=== PATIENT | male | born 1965 | race Caucasian/White ===

== ENCOUNTER → 2018-02-05 07:06 | Outpatient (CLI) | payer BC, SELFPAY | PROVIDERS: Family Provider Family Medicine; PCP Family Medicine; Visit Provider Family Medicine | DX: R07.89 Other chest pain (principal) | CPT/HCPCS: 93017 ==

== ENCOUNTER → 2018-03-03 12:27 | Outpatient (CLI) | payer BC, SELFPAY ==
--- NOTE | 2018-03-03 12:29 | CA_ITS ---
PROCEDURE: 2-D M-mode and color Doppler study INDICATIONS FOR THE TEST: Chest painX COPDX Heart Murmur Tobacco Smoking Palpitations Fatigue Syncope Edema HypertensionXDiabetes Mellitus Rheumatic Fever SOBXDOE ObesityXHyperlipidemiaX Family History HD Additional History CAD,RECENT STENT,ABN GXT, PATIENT INFORMATION HEIGHT: 72 WEIGHT:229 GENDER: Male B/P:151/92 2-D/M-MODE INTERPRETATION: 2-D MEASUREMENTS OBSERVED VALUES IN CMS Right Ventricular Dimension (RVDd) 2.3 Interventricular Septum (Thickness)(IVsd) 1.0 Left Ventricular Internal Dimensions(LVIDd) 4.1 Left Ventricular Posterior Wall (Thickness)(LVPWd) 1.2 Aortic Root 3.7 Aortic Cusp Separation 2.0 Left Atrial Dimensions (LAD) 2.9 2D 1. Left atrium is mildly enlarged, left ventricle is normal size, mild qualitative concentric left ventricular hypertrophy, visually estimated ejection fraction 55% with no obvious regional wall motion abnormality. 2. The right atrium and right ventricle are normal size and contractility. 3. The aortic valve is minimally thickened and fibrosed. 4. The mitral and tricuspid valve are grossly normal. 5. The pulmonic valve is poorly visualized. 6. No significant pericardial effusion noted. DOPPLER INTERROGATION: Doppler interrogation of the aortic, mitral and tricuspid valvular presence of trace aortic, mild mitral and tricuspid regurgitation, tricuspid and jet velocity is insufficient for calculation of the right ventricular systolic pressure, grade 1 diastolic dysfunction seen without tissue Doppler evidence of raised left atrial pressure. CONCLUSION: 1. Mildly enlarged left atrium, normal left ventricular size, mild concentric left ventricular hypertrophy, visually estimated ejection fraction 55% with no obvious regional wall motion abnormality, grade 1 diastolic dysfunction seen without tissue Doppler evidence of raised left atrial pressure. 2. Trace aortic, mild mitral and tricuspid regurgitation 3. No significant pericardial effusion noted.
== END ==
PROVIDERS: Family Provider Family Medicine; PCP Family Medicine; Visit Provider Internal Medicine
DX: R55 Syncope and collapse (principal)
CPT/HCPCS: 93306

== ENCOUNTER → 2019-03-09 09:42 | Outpatient (CLI) | payer BC, SELFPAY ==
[2019-03-09 10:35] VITALS: PULSE 84
[2019-03-09 13:15] VITALS: PULSE 78
== END ==
LOC: RT 09:44
PROVIDERS: PCP Family Medicine; Visit Provider Nurse Practitioner
DX: J44.1 Chronic obstructive pulmonary disease with (acute) exacerbation (principal)
CPT/HCPCS: 94060; 94640; 94727; 94729

== ENCOUNTER → 2019-03-30 13:24 | Outpatient (CLI) | payer BC, SELFPAY ==
--- NOTE | 2019-03-30 13:36 | CT_ITS ---
PROCEDURE: CT CHEST WO CON CLINICAL INDICATION: COPD, SOB Shortness of air, cough, COPD COMPARISON: CXR CHEST(2 VIEWS-NOT PORTABLE) from 10/18/2014 TECHNIQUE: Axial images obtained with sagittal and coronal reformats. All CT scans at the facility use one or more dose reduction, viz: automated exposure control, ma/kV adjustment per patient size (including targeted exams where dose is matched to indication, i.e. head), or iterative reconstruction technique. FINDINGS: Coronary artery calcifications are present. There is normal heart size. No mediastinal or hilar mass. Fibrocalcific changes are present in the right apex with an area of pleural thickening with partial calcification. This area measures 4.2 cm transverse and 3 cm AP with some associated fibrosis. There are centrilobular emphysematous changes. 4 mm subpleural opacity is present in the right lower lobe laterally. Just medial to this is a 5 mm noncalcified nodule. Fibrotic changes are present in the left apex. Minimal fibrotic changes are present in the lingula. There is a 4 mm subpleural nodule in the left costophrenic sulcus. No central obstructing lesions are evident. No effusions or infiltrates. Upper abdominal images shows a few small lymph nodes in the retrocrural region bilaterally. No acute bony anomalies evident. IMPRESSION: 1. Centrilobular emphysema with scattered areas of fibrotic changes. 2. Right apical increased soft tissue density in may be related to fibrocalcific changes having some calcification. Suggest 3 month follow-up to confirm short term stability. 3. There are few scattered small nodular opacities as described above which are nonspecific and may be followed 4. Coronary artery calcifications Dictated by: Conrad Scott MD 03/31/2019 11:43 Signed by: <Electronically signed by Conrad Scott MD in [place]> 03/31/2019 11:43
== END ==
PROVIDERS: PCP Family Medicine; Visit Provider Nurse Practitioner Family
DX: R06.02 Shortness of breath (principal); R05 Cough; J44.9 Chronic obstructive pulmonary disease, unspecified
CPT/HCPCS: 71250

== ENCOUNTER → 2019-05-06 06:16 | Outpatient (CLI) | payer BC, SELFPAY ==
--- NOTE | 2019-05-06 06:18 | CA_ITS ---
APPROVED REPORT EXAM: Comprehensive 2D, Doppler, and color-flow Echocardiogram Electrician Helper: Kecia Ching CRT Ht: 6 ft 1 in Wt: 229lbs BSA: 2.28 BP: 180/124 mmHg Indications: COPD, GERD, CAD, stent, HTN, SOB 2D Dimensions IVSd 1.40 cm LVEF (Visual) 46.90 % PWd 1.20 cm LVDd 4.30 cm LVDs 3.30 cm LVOT 2.00 cm (M/F) 1.5-2.5 M-Mode Dimensions LA Diam 3.80 cm (1.9-4.0) Ao Diam 3.90 cm (2.0-3.7) AV Cusp 2.00 cm (1.5-2.6) LV Diastology E/A Ratio 1.00 MED E' 5.36 (< 7 cm/sec) E'/MED E' Ratio 15.10 (>14) LAT E' 8.29 (<10 cm/sec) E/LAT E' Ratio 9.80 (>14) Aortic Valve AoV Peak Giovany. 153.00 (50-130 cm/s) AI PHT 527.00 ms AO Peak GR. 9.00 mmHg Mitral Valve MV E Max Giovany. 80.90 (40-130 cm/s) MV A Velocity 81.40 (40-130 cm/s) E/A Ratio 1.00 Pulmonary Valve PA Accel Time 130.00 (>120 msec) Left Ventricle Left atrium is mildly enlarged, left ventricle is normal size, mild concentric left ventricular hypertrophy, visually estimated ejection fraction 50%, there is moderate hypokinesis involving the basal septum and inferior basal wall, diastolic parameters are inconclusive. Right Ventricle Right atrium and right ventricle mildly enlarged with normal contractility. Aortic Valve Aortic valve is thickened and calcified leaflet continue to display good mobility, there is no aortic stenosis, there is mild aortic insufficiency. Mitral Valve Mitral valve leaflets are minimally thickened, there is mild mitral regurgitation. Tricuspid Valve Tricuspid valve is grossly normal, there is mild tricuspid regurgitation. Tricuspid regurgitation jet velocity is inadequate for calculation of the right ventricular systolic pressure. Pulmonic Valve Pulmonic valve is poorly visualized. Great Vessels Aortic root is normal size. Pericardium No significant pericardial effusion noted. Conclusion 1. Mild biatrial enlargement, normal left ventricular size, mild concentric left ventricular hypertrophy, visually estimated ejection fraction 50% with segmental wall motion abnormality described above, diastolic parameters are inconclusive. 2. Mildly enlarged right ventricle with normal contractility. 3. Mild mitral, aortic and tricuspid regurgitation. 4. No significant pericardial effusion noted. Electronically signed by : Haja Johansen, 05/07/2019 09:33:35
--- NOTE | 2019-05-06 06:38 | NM_ITS ---
APPROVED REPORT Exam: Nuclear Stress Test Indication: chest pain, short of breath Ht: 6 ft 0 in Wt: 225 lbs HR: 84 bpm BP: 174/96 mmHg BSA: 2.24 m2 History: chest pain, short of breath Procedure: Patient received a 0.4 mg of intravenous Lexiscan, resting heart rate 84 bpm, resting blood pressure 174/96 mmHg, with Lexiscan maximum heart rate achived was 103 bpm which is Less than 85 % of the maximum predicted heart rate and blood pressure was 150/90 mmHg. Electrocardiogram Resting electrocardiogram showed sinus rhythm, with Lexiscan there is less than 1.[address] segment depression noted from the baseline EKG. The EKG portion of the Lexiscan Myoview is nondiagnostic. Cardiac Stress and Resting SPECT Images: Cardiac Stress and Resting SPECT images were obtained using technetium 99m Myoview 32.8 mCi stress and 10.20 mCi at rest. Gated SPECT with analysis of segmental wall motion and calculation of the ejection fraction also done. Cardiac stress and resting SPECT images show a fixed defect involving the inferior and posterior basal wall with reduced contractility and the gated SPECT is likely secondary to myocardial scarring, there is no significant krissy-infarct ischemia seen. Computer derived ejection fraction is over 65%, with moderate inferior posterior basal wall hypokinesis, right ventricle is normal size and contractility. Conclusion: 1. The EKG portion of the Lexiscan Myoview is nondiagnostic. 2. Scintigraphic evidence of myocardial scarring involving the inferior posterior basal wall without significant krissy-infarct ischemia, computer derived ejection fraction is over 65% with segmental wall motion abnormality described above, right ventricle is normal size and contractility. 3. Abnormal Lexiscan Myoview study. Electronically signed by : Haja Johansen, 05/06/2019 11:49:23
--- NOTE | 2019-05-06 06:38 | CA_ITS ---
APPROVED REPORT Exam: Pharmacologic Technologist: ester mansfield, Ht: 6 ft 0 in Wt: 225 lbs BSA: 2.24 m2 HR: 84 bpm BP: 174/96 mmHg Indications: CP, SOB Medical History Medical History: SOB, HTN, Hyperlipidemia Medications: Albuterol,,,,, DilTAZEM,,,,, Hydrochloroth,,,,, OmPERAZOLE,,,,, Trelegy,,,,, Cardiac Risk Factors: HTN, Hyperlipidemia, SOB, FHX of CAD Stress Test Details Test: LEXISCAN HR Resting HR: 87 bpm Max Heart Rate (APMHR): 166 bpm Max HR Achieved: 117 bpm Target HR (85% APMHR): 141 bpm % of APMHR: 70 Recovery HR: 92 bpm BP Resting BP: 174.0/96.0 mmHg Max BP: 174.0/96.0 mmHg Recovery BP: 157.0/89.0 mmHg ECG Resting ECG: NSR,NS ST ABNORMALITIES INFERIORLY Clinical Exercise duration: 04:18 min Highest Stage Achieved: Stress ECG Conclusion DURING INFUSION OF LEXISCAN PATIENT HAD SOA,NAUSEA,MALAISE AND MILD CHEST DISCOMFORT. NO ARRHYTHMIAS/ECTOPY. NO SIGNIFICANT ST-T CHANGES. UNREMARKABLE LEXISCAN STRESS. MYOVIEW IMAGES REPORTED SEPARATELY Electronically signed by : Haja Johansen, 05/06/2019 12:15:37
--- NOTE | 2019-05-06 10:19 | HMH.ITSHM ---
Current Home Medications as stated by this patient Pritesh Aguilar or technical services representative. [] trelegy diltiazem albuterol omoprazole hydrochlorth
== END ==
LOC: RAD 06:17
PROVIDERS: PCP Family Medicine; Visit Provider Internal Medicine Cardiovascular Disease
DX: R06.02 Shortness of breath (principal); I11.9 Hypertensive heart disease without heart failure; I25.10 Atherosclerotic heart disease of native coronary artery without angina pectoris; Z02.4 Encounter for examination for driving license
CPT/HCPCS: 78452; 93017; 93306; A9502; J2785

== ENCOUNTER → 2019-05-07 09:39 | Outpatient (CLI) | payer BC, SELFPAY ==
[2019-05-07 11:09] LABS: Alanine Aminotransferase 56 U/L (12-78); Albumin Level 4.3 gm/dL (3.4-5.0); Alkaline Phosphatase 68 U/L (46-116); Aspartate Amino Transferase 41 U/L (15-37); Bilirubin,Direct 0.1 mg/dL (0.0-0.2); Bilirubin,Indirect 0.4 mg/dL (0.0-0.9); Bilirubin,Total 0.5 mg/dL (0.2-1.0); Chol/HDL Ratio 8.1 (1-3.5); Cholesterol 308 mg/dL (140-200); HDL Cholesterol 38 mg/dL (27-67); Total Protein,Serum 7.6 gm/dL (6.4-8.2)
[2019-05-07 11:19] LABS: Triglycerides 807 mg/dL (30-200)
== END ==
PROVIDERS: Visit Provider Internal Medicine Cardiovascular Disease
DX: R06.02 Shortness of breath (principal); I11.9 Hypertensive heart disease without heart failure; I25.10 Atherosclerotic heart disease of native coronary artery without angina pectoris; E78.5 Hyperlipidemia, unspecified; R94.39 Abnormal result of other cardiovascular function study
CPT/HCPCS: 36415; 80061; 80076

== ENCOUNTER → 2019-06-23 07:49 | Outpatient (CLI) | payer BC, SELFPAY ==
--- NOTE | 2019-06-23 07:51 | CA_ITS ---
APPROVED REPORT Fish Salter: Shanna Borges RVT Study Quality: Adequate Indications: Uncontrolled HTN Risk Factors Hypertension Hyperlipidemia Renal Artery Doppler Origin (R) 222.2/ cm/sec Proximal (R) 240.1/ cm/sec Mid (R) 95.6/ cm/sec Distal (R) 86.4/ cm/sec Renal Aorta Ratio (R) 2.56 Segmental A. (R) 88.9/30.5 cm/sec RI: 0.65 Segmental A. Sup (R) 88.9/30.5 cm/sec Segmental A. Mid (R) 80.6/13.8 cm/sec Segmental A. Inf (R) 62.2/16.3 cm/sec Origin (L) 117.6/ cm/sec Proximal (L) 78.8/ cm/sec Mid (L) 213.9/ cm/sec Distal (L) 172.1/ cm/sec Renal Aorta Ratio (L) 2.28 Segmental A. (L) 147.1/24.9 cm/sec RI: 0.83 Segmental A. Sup (L) 147.1/24.9 cm/sec Segmental A. Mid (L) 135.9/22.4 cm/sec Segmental A. Inf (L) 67.2/20.0 cm/sec Renal Measurements Kidney Size (R) 11.3x7.3 cm Cortical Thickness (R) 1.8 cm Kidney Size (L) 11.1x7.4 cm Cortical Thickness (L) 2.7 cm Conclusion Study suggests less than 60% stenosis of the bilateral renal arteries. Electronically signed by : Conrad Scott MD 06/23/2019 19:08:55
[2019-06-23 10:32] LABS: Anion Gap 13.3 mEq/L (5-15); Blood Urea Nitrogen 33 mg/dL (7-18); Calcium 9.2 mg/dL (8.5-10.1); Carbon Dioxide 27 mmol/L (21.0-32.0); Chloride 97 mmol/L (98-107); Creatinine,Serum 1.41 mg/dL (0.70-1.30); Estimated Glomerular Filt Rate 52 ml/min (>60); GFR (African American) 63 ML/MIN (>60); Glucose 92 mg/dL (74-106); Potassium 4.3 mmoL/L (3.5-5.1); Sodium 133 mmol/L (136-145)
== END ==
PROVIDERS: PCP Family Medicine; Visit Provider Nurse Practitioner Family
DX: I11.9 Hypertensive heart disease without heart failure (principal); E78.5 Hyperlipidemia, unspecified; I25.10 Atherosclerotic heart disease of native coronary artery without angina pectoris; J44.9 Chronic obstructive pulmonary disease, unspecified; K21.9 Gastro-esophageal reflux disease without esophagitis; R06.02 Shortness of breath; Z87.891 Personal history of nicotine dependence
CPT/HCPCS: 36415; 80048; 93976

== ENCOUNTER → 2019-07-14 10:08 | Outpatient (CLI) | payer BC, SELFPAY ==
--- NOTE | 2019-07-14 10:12 | CT_ITS ---
PROCEDURE: CT CHEST WO/W CON CLINCAL INDICATION: PULMONARY NODULES Follow-up pulmonary nodule and shortness of air COMPARISON: CT CHEST WO CON from 03/30/2019 TECHNIQUE: IV Contrast: 75ml Optiray 350 Axial images obtained with sagittal and coronal reformats. All CT scans at the facility use one or more dose reduction, viz: automated exposure control, ma/kV adjustment per patient size (including targeted exams where dose is matched to indication, i.e. head), or iterative reconstruction technique. FINDINGS: No mediastinal or hilar mass or adenopathy. Coronary artery calcifications are present best demonstrated on the unenhanced images. Normal heart size without evidence of pericardial effusion. There are severe panlobular emphysematous changes. Partially calcified mass is present in the right upper lobe. This does not appear significantly changed. Two noncalcified nodules are once again noted in the right lower lobe laterally image 56 series 3 the measuring 5 mm each not significantly changed. There are 2 nodular densities in the left posterior costophrenic sulcus. These are nonspecific and measure approximately 5 mm each. One of these was present on the previous study. No effusions or infiltrates. Upper abdominal images show cholelithiasis. IMPRESSION: 1. No change in the right apical partially calcified mass which may be related to fibrotic changes. 2. No change in the right lower lobe nodules. 3. There are 2 nodular opacities in the left lung base posteriorly measuring 5 mm 1 new and 1 unchanged. Consider six-month follow-up to confirm stability or resolution. 4. Cholelithiasis. 5. Coronary artery calcification Dictated by: Conrad Scott MD 07/16/2019 08:45 Electronically signed by Conrad Scott MD in [place] 07/16/2019 08:45
== END ==
PROVIDERS: PCP Family Medicine; Visit Provider Family Medicine
DX: R91.8 Other nonspecific abnormal finding of lung field (principal)
CPT/HCPCS: 71270; Q9967

== ENCOUNTER → 2019-09-10 07:56 | Outpatient (CLI) | payer BC, SELFPAY ==
--- NOTE | 2019-09-10 07:59 | MR_ITS ---
PROCEDURE: MR CERVICAL SPINE WO CON CLINICAL INDICATION: CERVICAL RADICULOPATHY Right-sided neck pain and shoulder pain numbness and tingling down right arm with headache COMPARISON: No exams were available for comparison TECHNIQUE: Standard multiplanar multiecho sequences are performed without contrast. 3-D MIP and myelographic images are also rendered and reviewed FINDINGS: There is straightening of the cervical lordosis. Cranial cervical junction has an unremarkable appearance. C2-C3: Unremarkable. C3-C4: There is degenerative disc disease with mild bulging disc and uncovertebral hypertrophy. There is mild retrolisthesis of C3 3 mm the and there is moderate bilateral foraminal narrowing from the uncovertebral hypertrophy. There is minimal central disc protrusion without impingement. C4-C5: Unremarkable. C5-C6: 3 mm anterolisthesis of C5 with mild degenerative disc disease and mild bulging disc. There is a small broad-based right paracentral disc protrusion. This does abut the anterior aspect of the cord on the right and is causing mild right lateral recess narrowing and mild right foraminal narrowing. C6-C7: Degenerate disc disease with bulging disc and mild uncovertebral hypertrophy. There is moderate bilateral foraminal narrowing slightly greater on the right compared to the left. C7-T1: Unremarkable. No extruded herniated disc or bony canal stenosis is evident. IMPRESSION: 1. C3-C4: There is degenerative disc disease with mild bulging disc and uncovertebral hypertrophy. There is mild retrolisthesis of C3 3 mm the and there is moderate bilateral foraminal narrowing from the uncovertebral hypertrophy. There is minimal central disc protrusion without impingement. 2. C5-C6: 3 mm anterolisthesis of C5 with mild degenerative disc disease and mild bulging disc. There is a small broad-based right paracentral disc protrusion. This does abut the anterior aspect of the cord on the right and is causing mild right lateral recess narrowing and mild right foraminal narrowing. 3. C6-C7: Degenerate disc disease with bulging disc and mild uncovertebral hypertrophy. There is moderate bilateral foraminal narrowing slightly greater on the right compared to the left. 4. No extruded herniated disc or bony canal stenosis is evident. Dictated by: Conrad Scott MD 09/10/2019 11:15 Electronically signed by Conrad Scott MD in [place] 09/10/2019 11:15
== END ==
LOC: RAD 07:56
PROVIDERS: PCP Family Medicine; Visit Provider Family Medicine
DX: M54.12 Radiculopathy, cervical region (principal)
CPT/HCPCS: 72141; 76376

== ENCOUNTER → 2019-10-22 07:11 | Outpatient (CLI) | payer BC, SELFPAY ==
[2019-10-22 09:05] LABS: Alanine Aminotransferase 62 U/L (12-78); Alkaline Phosphatase 72 U/L (38-126); Aspartate Amino Transferase 67 U/L (17-59); Bilirubin,Indirect 0.6 mg/dL (0.0-0.9); Bilirubin,Total 0.6 mg/dl (0.2-1.3); Bilirubin,Unconjugated 0.6 mg/dL (0.0-1.1); Cholesterol 214 mg/dl (140-200)
[2019-10-22 09:06] LABS: Albumin Level 4.7 g/dl (3.5-5.0); HDL Cholesterol 43 mg/dl (40-60); Total Protein,Serum 7.4 g/dl (6.3-8.2)
[2019-10-22 09:15] LABS: Triglycerides 1111 mg/dl (30-150)
[2019-10-22 09:18] LABS: Direct LDL Cholesterol < 30.00 mg/dL (100-129)
== END ==
PROVIDERS: Visit Provider Nurse Practitioner Family
DX: E78.5 Hyperlipidemia, unspecified (principal); I11.9 Hypertensive heart disease without heart failure; I25.10 Atherosclerotic heart disease of native coronary artery without angina pectoris
CPT/HCPCS: 36415; 80061; 80076

== ENCOUNTER → 2020-01-11 12:34 | Outpatient (CLI) | payer BC, SELFPAY ==
[2020-01-11 14:44] LABS: Alanine Aminotransferase 74 U/L (12-78); Albumin Level 4.9 g/dl (3.5-5.0); Alkaline Phosphatase 88 U/L (38-126); Aspartate Amino Transferase 101 U/L (17-59); Bilirubin,Direct 0.2 mg/dl (0.0-0.4); Bilirubin,Indirect 0.3 mg/dL (0.0-0.9); Bilirubin,Total 0.5 mg/dl (0.2-1.3); Bilirubin,Unconjugated 0.3 mg/dL (0.0-1.1); Cholesterol 151 mg/dl (140-200); HDL Cholesterol 51 mg/dl (40-60); Total Protein,Serum 7.8 g/dl (6.3-8.2)
[2020-01-11 14:51] LABS: Triglycerides 1086 mg/dl (30-150)
[2020-01-11 14:56] LABS: Direct LDL Cholesterol < 30.00 mg/dL (100-129)
== END ==
PROVIDERS: Visit Provider Nurse Practitioner Family
DX: R06.02 Shortness of breath (principal); I25.10 Atherosclerotic heart disease of native coronary artery without angina pectoris; I11.9 Hypertensive heart disease without heart failure; E78.2 Mixed hyperlipidemia; K21.9 Gastro-esophageal reflux disease without esophagitis; J44.9 Chronic obstructive pulmonary disease, unspecified; Z87.891 Personal history of nicotine dependence
CPT/HCPCS: 36415; 80061; 80076

== ENCOUNTER → 2020-02-11 08:37 | Outpatient (CLI) | payer BC, SELFPAY ==
--- NOTE | 2020-02-11 08:38 | CA_ITS ---
APPROVED REPORT EXAM: Comprehensive 2D, Doppler, and color-flow Echocardiogram Reliability Manager: Kecia Ching CRT Ht: 6 ft 0 in Wt: 226lbs BSA: 2.24 BP: 138/82 mmHg Indications: COPD, Shortness of Breath, CAD, Hyperlipidemia, Hypertension/HDD, GERD, EX SMOKER 2D Dimensions LVOT 1.81 cm (M/F) 1.5-2.5 M-Mode Dimensions RVDd 2.55 cm (0.9-2.6) LVDd 5.21 cm (3.5-5.7) LVDs 3.76 cm (3.5-5.7) IVSd 1.41 cm (0.6-1.1) PWd 1.18 cm (0.6-1.1) EF (Teich) 53.60% FS 27.80% EDV (Teich) 130.10 mL ESV (Teich) 60.40 mL LV Diastology E/A Ratio 0.99 Mitral Valve MV A Velocity 77.00 (40-130 cm/s) Left Ventricle Left atrium is mildly enlarged, left ventricle is normal size, mild qualitative concentric left ventricular hypertrophy, visually estimated ejection fraction 55% with no regional wall motion abnormality, grade 1 diastolic dysfunction seen without tissue Doppler evidence of raise left atrial pressure. Right Ventricle Right atrium and right ventricular normal size and contractility. Aortic Valve Aortic valve is minimally thickened and fibrosed leaflet continue to display good mobility, there is no aortic stenosis, there is mild aortic insufficiency. Mitral Valve Mitral valve is grossly normal, there is mild mitral regurgitation. Tricuspid Valve Tricuspid valve is grossly normal, there is mild tricuspid regurgitation, tricuspid regurgitation jet velocity is inadequate for calculation of the right ventricular systolic pressure. Pulmonic Valve Pulmonic valve is poorly visualized. Great Vessels Aortic root is normal size. Pericardium No significant pericardial effusion noted. Conclusion 1. Mildly enlarged left atrium, normal left ventricular size, mild concentric left ventricular hypertrophy, visually estimated ejection fraction 55% with no regional wall motion abnormality, grade 1 diastolic dysfunction seen without tissue Doppler evidence of raise left atrial pressure. 2. Mild aortic, mild mitral and tricuspid regurgitation. 3. No significant pericardial effusion noted. Electronically signed by : Haja Johansen, 02/11/2020 11:11:25
== END ==
LOC: RT 08:38
PROVIDERS: PCP Family Medicine; Visit Provider Nurse Practitioner Family
DX: R06.02 Shortness of breath (principal); I25.10 Atherosclerotic heart disease of native coronary artery without angina pectoris; I11.9 Hypertensive heart disease without heart failure; E78.2 Mixed hyperlipidemia; J44.9 Chronic obstructive pulmonary disease, unspecified; K21.9 Gastro-esophageal reflux disease without esophagitis; Z87.891 Personal history of nicotine dependence
CPT/HCPCS: 93306

== ENCOUNTER → 2020-02-25 10:42 | Outpatient (CLI) | payer BC, SELFPAY ==
--- NOTE | 2020-02-25 10:50 | CA_ITS ---
APPROVED REPORT Left Lower Extremity Venous Study for DVT. Riprap Man: Shanna Borges, SMITHAT Indications Lower Extremity Pain: CAD PT HAS KNOT MID CALF X SEVERAL MTHS,PAINFUL Risk Factors CAD Medications Plavix Vein Imaging CFV (L): compressive, spontaneous, phasic, augmentation FEM (L): compressive, spontaneous, phasic, augmentation POP (L): compressive, spontaneous, phasic, augmentation PTV (L): Compressible GSV (L): Compressible Peroneals (L):Compressible GAS (L): Compressible Findings Study suggests no evidence of DVT of the left lower extremity, Study suggests no evidence of SVT of the left lower extremity. Conclusion No evidence of DVT or superficial thrombophlebitis in the veins scanned of the left lower extremity. Electronically signed by : Conrad Scott MD 02/25/2020 17:38:47
== END ==
PROVIDERS: PCP Family Medicine; Visit Provider Nurse Practitioner
DX: M79.662 Pain in left lower leg (principal)
CPT/HCPCS: 93971

== ENCOUNTER → 2020-03-03 13:44 | Outpatient (CLI) | payer BC, SELFPAY ==
--- NOTE | 2020-03-03 13:49 | US_ITS ---
PROCEDURE: US EXTREMITY LT LIMITED CLINICAL INDICATION: NEOPLASM OF UNCERTAIN BEHAVIOR OF SOFT TISSUE LOWER LT EXTRE Palpable area in the left lower leg. COMPARISON: No exams were available for comparison FINDINGS: A superficial ultrasound of the left lower medial leg was performed with real-time static grayscale and color Doppler imaging technique. At the area of palpable concern a small 2 x 2 millimeter nonspecific hypoechoic lesion is seen with no demonstrable Doppler vascular color flow. No other discrete abnormality is seen. Normal soft tissues of the extremity are seen. IMPRESSION: A tiny 2 x 2 millimeter nonspecific hypoechoic palpable nodule is seen in medial left lower leg, probably is benign. Consider follow-up with a short-term ultrasound exam in 3-6 months. Dictated by: Maya Medina 03/03/2020 15:19 Electronically signed by Maya Medina in [place] 03/03/2020 15:19
== END ==
PROVIDERS: PCP Family Medicine; Visit Provider Nurse Practitioner
DX: D48.1 Neoplasm of uncertain behavior of connective and other soft tissue (principal)
CPT/HCPCS: 76882

== ENCOUNTER → 2020-04-19 10:32 | Outpatient (CLI) | payer BC, SELFPAY ==
[2020-04-19 11:31] LABS: Alanine Aminotransferase 115 U/L (12-78); Albumin Level 4.4 g/dl (3.5-5.0); Alkaline Phosphatase 149 U/L (38-126); Aspartate Amino Transferase 197 U/L (17-59); Bilirubin,Direct 0.2 mg/dl (0.0-0.4); Bilirubin,Indirect 0.4 mg/dL (0.0-0.9); Bilirubin,Total 0.6 mg/dl (0.2-1.3); Bilirubin,Unconjugated 0.4 mg/dL (0.0-1.1); Chol/HDL Ratio 7.5 (1-3.5); Cholesterol 209 mg/dl (140-200); HDL Cholesterol 28 mg/dl (40-60); Total Protein,Serum 7.3 g/dl (6.3-8.2)
[2020-04-19 11:43] LABS: Direct LDL Cholesterol 31.36 mg/dL (100-129); Triglycerides 1303 mg/dl (30-150)
== END ==
PROVIDERS: Visit Provider Urology
DX: E78.5 Hyperlipidemia, unspecified (principal); I11.9 Hypertensive heart disease without heart failure; I25.10 Atherosclerotic heart disease of native coronary artery without angina pectoris; R06.02 Shortness of breath; R19.7 Diarrhea, unspecified
CPT/HCPCS: 36415; 80061; 80076

== ENCOUNTER → 2021-02-02 12:38 | Outpatient (CLI) | payer BC, SELFPAY ==
--- NOTE | 2021-02-02 12:44 | US_ITS ---
APPROVED REPORT Exam Type: Ankle to Brachial Index Hat Conditioner: Maggie Erickson RT(R) Indications Rest Pain: Bilaterally History of Smoking parasthesia of bilateral foot Risk Factors Hypertension CAD Hyperlipidemia Cardiac Disease Pressures/Indices Right Indices Left Indices Brachial 136.00 mmHg Brachial 146.00 mmHg Low Thigh 151.00 mmHg 1.03 Low Thigh 143.00 mmHg 0.98 Calf 147.00 mmHg 1.01 Calf 151.00 mmHg 1.03 Ankle(PT) 150.00 mmHg 1.03 Ankle(PT) 151.00 mmHg 1.03 Ankle(DP) 145.00 mmHg 0.99 Ankle(DP) 116.00 mmHg 0.79 Digit 120.00 mmHg 0.82 Digit 119.00 mmHg 0.82 Findings RT JEET=1.03 LT JEET=1.03 RT TBI=0.82 LT TBI=0.82 Normal pulses Normal waveforms Conclusion RT JEET=1.03 LT JEET=1.03 RT TBI=0.82 LT TBI=0.82 Normal pulses Normal waveforms Normal appearing resting noninvasive lower extremity arterial study. Electronically signed by : Conrad Scott MD 02/02/2021 15:08:56
== END ==
PROVIDERS: PCP Family Medicine; Visit Provider Nurse Practitioner
DX: R20.2 Paresthesia of skin (principal)
CPT/HCPCS: 93923

== ENCOUNTER 2021-09-04 09:01 | Emergency (ER) | payer BC, SELFPAY ==
[2021-09-04 09:25] VITALS: BP 123/73; PULSE 102; RESP 22; TEMP 36.8; O2SAT 98; BMI 31.3
--- NOTE | 2021-09-04 09:56 | HMH.EDUTC ---
[facility] [place] Clinical Impression: Bronchitis Sinusitis Qualifiers: Sinusitis location: unspecified location Chronicity: unspecified Qualified Code(s): J32.9 - Chronic sinusitis, unspecified Disposition: Home, Self-Care Condition on Discharge: Good Instructions: Sinusitis, DI for Sinusitis Additional Instructions: ? Start antibiotic today. Be sure to complete entire prescription even if feeling better ? Monitor temp. Tylenol every 4 hours as needed and / or ibuprofen every 6 hours as needed ( As long as your primary care physician has told you that it ok to take both. For fever/aches/pains ER if no less than 101 despite Tylenol or Motrin ? Humidifier/vaporizer or hot steamy shower *Tessalon Perles will not cause drowsiness but use at bedtime to help stop cough so that you may get some rest. *Start steroid today. Helps with inflammation therefore, cough and wheezing. Follow directions on the package. Reviewed side effects. Patient reports taking them before. Follow up IMMEDIATELY for new or worsening of symptoms OR no noticeable improvement over the next 48-72 hours. 911 immediately for any life threatening symptoms such as chest pain or difficulty breathing Prescriptions: Benzonatate [Benzonatate 100mg cap] 100 mg PO Q8HP PRN #15 cap PRN Reason: Cough Transmission Status: Pending to [facility]/pharmacy #[id number] Doxycycline Monohydrate [Doxycycline [place] 100mg Tab] 100 mg PO Q12 10 Days #20 tab Transmission Status: Pending to [facility]/pharmacy #[id number] methylPREDNISolone [Medrol 4mg tab] 4 mg PO DIRECTED #21 tab Transmission Status: Pending to [facility]/pharmacy #[id number] Referrals: Salvador Alvarez MD [Primary Care Provider] - As needed Time of Disposition: 10:05 Medical Decision Making - James Inquiry Pt receiving controlled substance: No James was queried for this patient: No Vital Signs: 09/04/21 09:25 Temperature 98.2 F Temperature Source Oral Pulse Rate [Right Brachial] 102 H Respiratory Rate 22 Blood Pressure [Right Arm] 123/73 Blood Pressure Mean [Right Arm] 89 Blood Pressure Source [Right Arm] Automatic Cuff Blood Pressure Position [Right Arm] Sitting 02 Sat by Pulse Oximetry 98 Oxygen Delivery Method Room Air [facility] [place] H[place] - General Stated complaint: congestion, runny nose, ear pain, dizziness Time Seen by Provider: 09/04/21 09:56 Mode of Arrival: Ambulatory Source of Information: Patient Limitations: No Limitations Description of Symptoms (Recalled from Triage Doc. by RN): PATIENT C/O DIZZINESS, HEADACHE, SOA, AND COUGH WITH MUCOUS. STATES SYMPTOMS HAVE BEEN ON AND OFF SINCE [facility] Symptoms (Recalled from RN notes): Yes Resp Symptoms (Recalled from RN notes): Yes Skin Symptoms (Recalled from RN notes): No MS Symptoms (Recalled from RN notes): No Functional Status (Recalled from RN notes): WNL - History of Present Illness Provider Complaint: Patient states that he has been having sinus pain and pressure and drainage since before States that he has been having pressure in his sinuses and feeling like it is draining in the back of his throat States that some of the mucous he is blowing out is blood tinged States today he came in due to still having sinus pressure and feeling of fullness in his ears and feels like it is trying to move into his chest States that he was on antibiotics around the first of the month and they cleared it up but then it come back Denies COVID exposure - Related Data Home Medications Medication Instructions Recorded Confirmed fluticasone propionate 50 1 spray INTRANASAL ONCE 02/20/18 07/03/21 mcg/actuation nasal spray,suspension aspirin 81 mg tablet,delayed 81 mg PO DAILY 03/12/18 07/03/21 release omeprazole 40 mg capsule,delayed 40 mg PO BID cap 04/19/20 07/03/21 release colchicine 0.6 mg tablet 1.2 mg PO DAILY tab 07/03/21 07/03/21 hydroxychloroquine 200 mg tablet 400 mg PO DAILY tab 07/03/21 07/03/21 prednisone 5 mg tablet 5 mg P
[2021-09-04 10:12] VITALS: BP 123/73; PULSE 102; RESP 22; TEMP 36.8; O2SAT 98
== END 2021-09-04 10:19 | disposition home or self-care (01) ==
PROVIDERS: Emergency Provider Nurse Practitioner; PCP Family Medicine
DX: J32.9 Chronic sinusitis, unspecified (principal); J44.9 Chronic obstructive pulmonary disease, unspecified; F17.210 Nicotine dependence, cigarettes, uncomplicated; I25.10 Atherosclerotic heart disease of native coronary artery without angina pectoris; I10 Essential (primary) hypertension
CPT/HCPCS: 99202; G0463

== ENCOUNTER → 2022-03-12 06:04 | Outpatient (CLI) | payer BC, SELFPAY ==
[2022-03-12 18:26] LABS: Basophils # 0.1 K/mm3 (0-0.2); Basophils % 1.7 % (0.1-2.0); Eosinophils # 0.1 K/mm3 (0.0-0.4); Eosinophils % 1.6 % (0.1-12.0); Hematocrit 45.9 % (42.0-52.0); Hemoglobin 14.4 g/dL (14.1-18.0); Lymphocytes # 2.1 K/mm3 (0.7-4.5); Lymphocytes % 23.9 % (10-50); Mean Corpuscular HGB Conc 31.5 g/dL (31.8-35.4); Mean Corpuscular Hemoglobin 32.7 pg (27.0-31.2); Mean Corpuscular Volume 103.8 fl (80-94); Mean Platelet Volume 8.6 fl (7.4-10.4); Monocytes # 0.6 K/mm3 (0.1-1.0); Monocytes % 6.7 % (1.7-9.3); Neutrophils # 5.7 K/mm3 (1.8-7.8); Neutrophils % 66.1 % (37.0-80.0); Platelet Count 393 K/mm3 (142-424); Red Blood Count 4.42 M/mm3 (4.60-6.20); Red Cell Distribution Width 15.1 % (11.5-17.5); White Blood Count 8.7 K/mm3 (4.8-10.8)
[2022-03-12 18:50] LABS: Alanine Aminotransferase 89 U/L (12-78); Albumin Level 4.2 g/dl (3.5-5.0); Albumin/Globulin Ratio 1.4 (1.1-1.8); Alkaline Phosphatase 181 U/L (38-126); Anion Gap 15.1 mEq/L (5-15); Aspartate Amino Transferase 254 U/L (17-59); Bilirubin,Total 0.3 mg/dl (0.2-1.3); Blood Urea Nitrogen 29 mg/dl (9-20); Calcium 7.9 mg/dl (8.4-10.2); Carbon Dioxide 25 mmol/L (22.0-30.0); Chloride 100 mmol/L (98-107); Estimated Glomerular Filt Rate 27 ml/min (>60); GFR (African American) 32 ML/MIN (>60); Globulin 2.9 g/dL (1.3-3.2); Glucose 101 mg/dl (74-100); Potassium 3.1 mmoL/L (3.5-5.1); Sodium 137 mmol/L (136-145); Total Protein,Serum 7.1 g/dl (6.3-8.2)
== END ==
PROVIDERS: PCP Nurse Practitioner; Visit Provider Nurse Practitioner
DX: J06.9 Acute upper respiratory infection, unspecified (principal); I10 Essential (primary) hypertension
CPT/HCPCS: 80053; 85025

== ENCOUNTER 2022-03-24 04:33 | Inpatient (IN) | payer BC, SELFPAY ==
[2022-03-24] VITALS (14 sets, daily range): BP systolic 79–147; BP diastolic 48–97; PULSE 60–87; RESP 14–18; TEMP 36.6–36.7; O2SAT 91–97; BMI 27.8; BMI 25.9
--- NOTE | 2022-03-24 04:43 | CT_ITS ---
PROCEDURE INFORMATION: Exam: CT Abdomen And Pelvis Without Contrast Exam date and time: 03/24/2022 5:53 AM Age: 57 years old Clinical indication: Abdominal pain; Generalized; Additional info: Abd pain TECHNIQUE: Imaging protocol: Computed tomography of the abdomen and pelvis without contrast. Radiation optimization: All CT scans at this facility use at least one of these dose optimization techniques: automated exposure control; mA and/or kV adjustment per patient size (includes targeted exams where dose is matched to clinical indication); or iterative reconstruction. COMPARISON: US CA RENAL ARTERY DUPLEX 06/23/2019 8:10 AM FINDINGS: Lungs: Minimal dependent changes are present in the lung bases. Heart: Coronary artery calcifications are present. Liver: Fatty infiltration of the liver. Gallbladder and bile ducts: The gallbladder is mildly distended with small layering gallstones noted. Pancreas: Normal. No ductal dilation. Spleen: Normal. No splenomegaly. Adrenal glands: Normal. No mass. Kidneys and ureters: Normal. No hydronephrosis. Stomach and bowel: Unremarkable. No obstruction. No mucosal thickening. Appendix: The appendix is seen and is normal in appearance. Intraperitoneal space: Unremarkable. No free air. No significant fluid collection. Vasculature: Arterial calcifications are present. Lymph nodes: Unremarkable. No enlarged lymph nodes. Urinary bladder: Unremarkable as visualized. Reproductive: Unremarkable as visualized. Bones/joints: Bilateral L4 par defects with approximately 1.2 cm of anterolisthesis. Soft tissues: Unremarkable. IMPRESSION: 1. The gallbladder is mildly distended with small layering gallstones noted. Clinical correlation is advised to evaluate for possible acute cholecystitis. 2. Bilateral L4 par defects with approximately 1.2 cm of anterolisthesis. 3. Remainder of findings as described.
--- NOTE | 2022-03-24 04:44 | XR_ITS ---
PROCEDURE INFORMATION: Exam: XR Chest Exam date and time: 03/24/2022 5:44 AM Age: 57 years old Clinical indication: Other: Generalized abdomen pain; Additional info: Abd pain TECHNIQUE: Imaging protocol: Radiologic exam of the chest. Views: 2 views. COMPARISON: CT CHEST WO/W CON 07/14/2019 11:50 AM FINDINGS: Lungs: Unremarkable. No consolidation. Pleural spaces: Unremarkable. No pleural effusion. No pneumothorax. Heart/Mediastinum: Unremarkable. No cardiomegaly. Bones/joints: Unremarkable. IMPRESSION: No acute findings.
--- NOTE | 2022-03-24 04:46 | ECG_ITS ---
APPROVED REPORT Exam: Resting ECG HR:81 bpm ECG Measurements Heart Rate 81 AXES MO 185 P 85 QRSd 109 QRS 84 QT 454 T 77 QTc 491 Conclusion SINUS RHYTHM PROLONGED QT INTERVAL ABNORMAL ECG UNCONFIRMED REPORT Electronically signed by : Bud Aguilar MD 03/24/2022 19:03:10
[2022-03-24 04:56] LABS: Basophils # 0.2 K/mm3 (0-0.2); Basophils % 2.2 % (0.1-2.0); Eosinophils # 0.1 K/mm3 (0.0-0.4); Eosinophils % 0.5 % (0.1-12.0); Hematocrit 43.9 % (42.0-52.0); Hemoglobin 14.4 g/dL (14.1-18.0); Lymphocytes # 1.6 K/mm3 (0.7-4.5); Lymphocytes % 16.3 % (10-50); Mean Corpuscular HGB Conc 32.8 g/dL (31.8-35.4); Mean Corpuscular Hemoglobin 32.1 pg (27.0-31.2); Mean Corpuscular Volume 97.9 fl (80-94); Mean Platelet Volume 8.6 fl (7.4-10.4); Monocytes # 0.6 K/mm3 (0.1-1.0); Monocytes % 6.2 % (1.7-9.3); Neutrophils # 7.4 K/mm3 (1.8-7.8); Neutrophils % 74.8 % (37.0-80.0); Platelet Count 224 K/mm3 (142-424); Red Blood Count 4.49 M/mm3 (4.60-6.20); Red Cell Distribution Width 15.1 % (11.5-17.5); White Blood Count 9.9 K/mm3 (4.8-10.8)
[2022-03-24 04:57] LABS: Microscopic, Urine URINE MICROSCOPIC (MICROSCOPIC)
--- NOTE | 2022-03-24 05:02 | PC.NURSE ---
ER in pt room speaking with pt at this time
[2022-03-24 05:03] LABS: Appearance,Urine CLEAR (Clear); Bilirubin,Urine Negative (Negative); Blood, Urine 3+ (Negative); Color,Urine YELLOW (Yellow); Glucose,Urine (UA) Negative (Negative); Ketones,Urine Negative (Negative); Leukocyte Esterase,Urine Negative (Negative); Nitrate,Urine Negative (Negative); Protein,Urine 2+ (Negative); Specific Gravity, Urine 1.025 (1.005-1.030); Urobilinogen,Urine 0.2 EU/dl (0.2)
[2022-03-24 05:05] LABS: Amorphous Sediment,Urine 2+ /lpf
[2022-03-24 05:06] LABS: Alanine Aminotransferase 637 U/L (12-78); Albumin Level 4.2 g/dl (3.5-5.0); Albumin/Globulin Ratio 1.3 (1.1-1.8); Alkaline Phosphatase 599 U/L (38-126); Amylase 72 U/L (30-110); Anion Gap 13.3 mEq/L (5-15); Bilirubin,Total 2.8 mg/dl (0.2-1.3); Blood Urea Nitrogen 19 mg/dl (9-20); Calcium 8.8 mg/dl (8.4-10.2); Carbon Dioxide 36 mmol/L (22.0-30.0); Creatinine Clearance Estimated 41 mL/min (50-200); Estimated Glomerular Filt Rate 26 ml/min (>60); GFR (African American) 31 ML/MIN (>60); Globulin 3.3 g/dL (1.3-3.2); Glucose 115 mg/dl (74-100); Lipase 458 U/L (23-300); Sodium 125 mmol/L (136-145); Total Protein,Serum 7.5 g/dl (6.3-8.2)
[2022-03-24 05:11] LABS: Lactic Acid 2.3 mmol/L (0.7-2.1)
[2022-03-24 05:12] LABS: C-Reactive Protein 3.2 mg/L (0-4)
[2022-03-24 05:21] LABS: Erythrocyte Sedimentation Rate 12 mm/hr (0-20); Troponin I 0.06 ng/ml (0.00-0.034)
[2022-03-24 05:23] LABS: Aspartate Amino Transferase 1381 U/L (17-59)
[2022-03-24 05:24] LABS: Chloride 78 mmol/L (98-107); Potassium 2.3 mmoL/L (3.5-5.1)
[2022-03-24 05:25] LABS: Procalcitonin 2.25 ng/mL (0.0-2.0)
--- NOTE | 2022-03-24 05:25 | HMH.EDNVD ---
ED Disposition Clinical Impression: Cholelithiasis and acute cholecystitis without obstruction, Hypokalemia, Alcohol abuse, Renal insufficiency Coronary artery disease Qualifiers: Coronary Disease-Associated Artery/Lesion type: [place] artery [place] vs. transplanted heart: [place] heart Associated angina: without angina Qualified Code(s): I25.10 - Atherosclerotic heart disease of [place] coronary artery without angina pectoris Disposition: Admitted As Inpatient Condition on Discharge: Fair - Critical Care Critical Care Time: No Attestation: On , the high probability of a clinically significant, sudden or life threatening deterioration of the following system(s) required my full and direct attention, intervention and personal management. The time I documented below is in addition to time spent performing reported procedures but includes the following listed in this critical care notation. Medical Decision Making - Medical Records Medical records reviewed: Yes: I reviewed the patient's medical records. - James Inquiry Pt receiving controlled substance: No Vital Signs: 03/24/22 04:46 03/24/22 05:00 03/24/22 05:31 Temperature 98 F Temperature Source Oral Pulse Rate 71 73 Pulse Rate [Apical] 87 Respiratory Rate 18 Blood Pressure 115/75 133/77 Blood Pressure [Right Arm] 147/97 H Blood Pressure Mean Blood Pressure Mean [Right Arm] 113 Blood Pressure Source [Right Arm] Automatic Cuff Blood Pressure Position [Right Arm] Sitting 02 Sat by Pulse Oximetry 96 93 L 97 Oxygen Delivery Method Room Air Room Air Room Air 03/24/22 06:58 03/24/22 07:00 03/24/22 07:02 Temperature Temperature Source Pulse Rate 60 62 Pulse Rate [Apical] Respiratory Rate Blood Pressure 80/51 L 79/48 L 79/55 L Blood Pressure [Right Arm] Blood Pressure Mean 60 55 62 Blood Pressure Mean [Right Arm] Blood Pressure Source [Right Arm] Blood Pressure Position [Right Arm] 02 Sat by Pulse Oximetry Oxygen Delivery Method 03/24/22 07:11 03/24/22 07:30 03/24/22 08:00 Temperature Temperature Source Pulse Rate 63 67 62 Pulse Rate [Apical] Respiratory Rate Blood Pressure 101/63 L 115/73 109/74 L Blood Pressure [Right Arm] Blood Pressure Mean 74 87 85 Blood Pressure Mean [Right Arm] Blood Pressure Source [Right Arm] Blood Pressure Position [Right Arm] 02 Sat by Pulse Oximetry 94 L 94 L 93 L Oxygen Delivery Method Room Air - Lab Data Lab results reviewed: Yes: I reviewed the patient's lab results. Lab Results 03/24/22 04:40: WBC 9.9, RBC 4.49 L, Hgb 14.4, Hct 43.9, MCV 97.9 H, MCH 32.1 H, MCHC 32.8, RDW 15.1, Plt Count 224, MPV 8.6, Neut % (Auto) 74.8, Lymph % (Auto) 16.3, [place] % (Auto) 6.2, Eos % (Auto) 0.5, Baso % (Auto) 2.2 H, Neut # (Auto) 7.4, Lymph # (Auto) 1.6, [place] # (Auto) 0.6, Eos # (Auto) 0.1, Baso # (Auto) 0.2, ESR 12 03/24/22 04:40: Sodium 125 L, Potassium 2.3 L*, Chloride 78 L, Carbon Dioxide 36 H, Anion Gap 13.3, BUN 19, Creatinine 2.60 H, Estimated Creat Clear 41, Estimated GFR 26 L, Est GFR ( Amer) 31 L, Glucose 115 H, Calcium 8.8, Total Bilirubin 2.8 H, AST 1381 H*, ALT 637 H*, Alkaline Phosphatase 599 H, Troponin I 0.06 H, C-Reactive Protein 3.2, Total Protein 7.5, Albumin 4.2, Globulin 3.3 H, Albumin/Globulin Ratio 1.3, Amylase 72, Lipase 458 H, Procalcitonin 2.25 H 03/24/22 04:40: Lactate 2.3 H 03/24/22 04:40: Plasma/Serum Alcohol < 10 03/24/22 04:41: Urine Color Yellow, Urine Appearance Clear, Urine pH 7.0, Ur Specific [place] 1.025, Urine Protein 2+, Urine Glucose (UA) Negative, Urine Ketones Negative, Urine Blood 3+, Urine Nitrate Negative, Urine Bilirubin Negative, Urine Urobilinogen 0.2, Ur Leukocyte Esterase Negative, Urine RBC 10-20, Amorphous Sediment 2+ 03/24/22 05:30: SARS-CoV-2 (PCR) Not detected, Influenza A Untype (PCR) Not detected, Influenza Type B (PCR) Not detected Result diagrams: 03/24/22 04:40 03/24/22 04:40 Orders (Tests
[2022-03-24 05:49] LABS: Coronavirus 19, PCR Not Detected (NotDetected); Influenza A, PCR Not Detected (NotDetected); Influenza B, PCR Not Detected (NotDetected)
[2022-03-24 05:53] LABS: Ethyl Alcohol < 10 mg/dl (0-10)
[2022-03-24 05:54] LABS: Reflex Lactic Add Lactic Reflex
--- NOTE | 2022-03-24 07:06 | PC.NURSE ---
Patient was given 4mg morphine IV per md request for pain control. After medication patient became hypotensive with a bp of 79/55 manually. MD notified. 2nd liter of NS 0.9% ordered. Will continue to monitor. Pt is currently awake, alert oriented and stable. Does report that he doesnt typically take pain medication.
--- NOTE | 2022-03-24 07:26 | PC.NURSE ---
adjusted pt bed for better comfort. No needs at this time
--- NOTE | 2022-03-24 07:52 | PC.NURSE ---
Dr Antonio urrutia.
--- NOTE | 2022-03-24 08:03 | PC.NURSE ---
Dr Alvarez returned call
--- NOTE | 2022-03-24 08:06 | PC.NURSE ---
Spoke with NENA Pagan regarding patient admission
--- NOTE | 2022-03-24 08:10 | PC.NURSE ---
Rounded on patient, he is aware that he is being admitted into the hospital at this time. He voices no other concerns at this time and is aware that the ER MD will come speak with him shortly. call light within reach.
--- NOTE | 2022-03-24 08:40 | PC.NURSE ---
Dr Alvarez at bedside
--- NOTE | 2022-03-24 08:45 | PC.NURSE ---
Report called to Lauren SOSA
--- NOTE | 2022-03-24 08:54 | PC.NURSE ---
patient arrived by wheelchair from ED
--- NOTE | 2022-03-24 09:19 | US_ITS ---
PROCEDURE INFORMATION: Exam: US Abdomen, Limited; Right Upper Quadrant Exam date and time: 03/24/2022 6:11 PM Age: 57 years old Clinical indication: Abdominal tenderness; Patient HX: PT had CT scan abdomen pelvis this am gallstones seen; Additional info: Abd pain TECHNIQUE: Imaging protocol: Real time ultrasound of the abdomen with image documentation. Limited exam focused on the right upper quadrant. COMPARISON: CT ABDOMEN PELVIS WO CON 03/24/2022 5:53 AM FINDINGS: Liver: Increased echogenicity of the liver suggestive of mild fatty infiltration. The liver measures 21 cm in sagittal dimensions. Normal directional flow of the portal vein. Gallbladder: Small gallstone seen near the gallbladder neck. Mild fluid distention of the gallbladder. Biliary ducts: The common bile duct measures 5 mm. Pancreas: Visualized pancreas is unremarkable. Right kidney: The right kidney measures 8.7 x 4.8 x 5.7 cm. No evidence of hydronephrosis or stones. IMPRESSION: 1. Hepatomegaly with fatty infiltration of the liver. 2. Small gallstone seen near the gallbladder neck. Mild fluid distention of the gallbladder.
[2022-03-24 09:33] LABS: Lactic Acid Follow Up (RFLX 1) 1.4 mmol/L (0.7-2.1)
--- NOTE | 2022-03-24 09:39 | HMH.HP ---
*Admission Date: 03/24/22 *Chief complaint: Abdominal pain *History of present illness: Vini is a 57-year-old white male with a history of COPD, hypertension, coronary artery disease, GERD, and ethanol abuse who has been having intermittent bouts of abdominal pain with nausea and vomiting for several weeks. Pain is usually in the upper abdomen. It is aggravated by food. He has had no change in his bowel habits. Denies fever. He drinks alcohol daily. He last had 2 mixed drinks yesterday. He had an episode of pain that started last night and was worse than usual. He states the pain radiated through his stomach into his back. He has a history of GERD but denies significant reflux symptoms at this time. He finally presented to the emergency room early this morning with these complaints. Work-up was remarkable for elevated liver functions and pancreatic enzymes. CT scan shows multiple gallstones. No mention of dilated common duct. His potassium is low at 2.3. Creatinine is elevated at 2.6. [facility] History Medical History: Reports:: Chronic Obstructive Pulmonary Disease (COPD), Coronary Artery Disease (s/p stents), Gastroesophageal Reflux Disease(GERD), Hyperlipidemia, Hypertension Denies:: Cancer, Diabetes Mellitus Type 1, Diabetes Mellitus Type 2, MRSA, Seizures *Have you ever received a pneumonia vaccine?: No *Have you received a flu vaccine this season?: No Other Medical History: Reports: Arthritis (Seropositive rheumatoid arthritis) Other Surgeries: Yes: Cardiac Catheterization, Colonoscopy, Coronary Stent, Other Amputation: No - *Social History Last grade of school completed: 9th or 10th Smoking Status: Former smoker Tobacco Type: cigarettes # Packs/Day (cigarettes): 20 Alcohol Intake: current Alcohol Intake Frequency:: 3 or more drinks per day Substance Use Type: denies use *Occupational Status:: retired Household Members: spouse *Travel in the last 8 weeks: None Family Hx:: Cancer (colon), Coronary Artery Disease Review of Systems - Constitutional Reports fatigue, Reports fever(s) - Eyes Reports change in vision - ENT Reports abnormal hearing, Reports dizziness, Reports sore throat - *Cardiovascular Reports chest pain, Reports shortness of breath with activity, Reports rapid, pounding, or irregular heartbeat - *Respiratory Reports shortness of breath with activity, Denies chest congestion, Denies cough - *Gastrointestinal Reports abdominal pain (See HPI) - *Genitourinary Reports difficulty urinating, Reports painful urination, Denies urinary incontinence - *Musculoskeletal Reports joint pain (Multiple), Denies body aches - Integumentary/Breasts Denies yellowing of the skin, Denies rash - *Neurologic Reports burning sensations (In both feet), Denies localized weakness, Denies seizure-like activity - Psychiatric Reports anxiety, Denies confusion - Hematologic/Lymphatic Reports easy bruising - Allergic/Immunologic Reports itchy eyes, Reports seasonal runny nose Meds Home Medications Medication Instructions Recorded Confirmed Type aspirin 81 mg tablet,delayed 81 mg PO DAILY 03/12/18 03/24/22 History release montelukast 10 mg tablet 10 mg PO DAILY tab 01/01/22 03/24/22 History testosterone 30 mg/actuation (1.5 1 applic TD DAILY ml 01/01/22 03/24/22 History mL) transderm solution metered pump famotidine 20 mg tablet 20 mg PO BID PRN #60 tab 03/19/22 03/24/22 Rx Clopidogrel Bisulfate [Plavix] 75 mg PO DAILY 03/24/22 03/24/22 History Potassium Chloride 20 meq PO DAILY 03/24/22 03/24/22 History Rosuvastatin Calcium 40 mg PO DAILY 03/24/22 03/24/22 History dilTIAZem HCl [Diltiazem 180mg 180 mg PO BID 03/24/22 03/24/22 History 24Hr ER Cap] hydroCHLOROthiazide [HCTZ 25mg 25 mg PO DAILY 03/24/22 03/24/22 History tab] predniSONE [Deltasone 20mg 20 mg PO .COMPLEX 03/24/22 03/24/22 History tablet] Allergies Allergy/AdvReac Type Severity Reaction Status Date / Time stephan
--- NOTE | 2022-03-24 09:40 | HMH.ITSTN ---
Spoke to nurse Pagan-- US study ordered as routine-- advised Wendy US tech will be in at 6pm and will scan him then -- he is currently inpatient and was ordered routine -- NPO for 6 hours prior to scan she said he is only on clear liquids anyway
[2022-03-24 09:45] LABS: Troponin I 0.06 ng/ml (0.00-0.034)
[2022-03-24 12:32] LABS: Troponin I 0.05 ng/ml (0.00-0.034)
--- NOTE | 2022-03-24 17:52 | PC.NURSE ---
PT PLEASANT, ALERT X4. CLEAR LIQUID DIET. C/O PAIN X1 WITH BOWEN, PRESCRIBED PAIN MEDS ADMIN. REF AM ATIVAN, TOOK 1300 ATIVAN, PT STATED HE FELT IT DID NOTHING FOR HIM. PT UP JEROME, ROUTINE VS, VSS, NO REPORTS OF ABD PAIN OR GERD SINCE RECIEVING PROTONIX. FAMILY AT BEDSIDE, NO COMPLAINTS/ QUESTIONS OR CONCERNS FROM PT. AWAITING ULTRASOUND. CB AND PERSONAL ITEMS W/I REACH.
[2022-03-25 03:27] VITALS: BP 121/65; PULSE 68; RESP 16; TEMP 36.7; O2SAT 94
[2022-03-25 05:19] VITALS: BMI 27.9
[2022-03-25 06:29] LABS: Basophils # 0.1 K/mm3 (0-0.2); Eosinophils # 0.1 K/mm3 (0.0-0.4); Eosinophils % 0.7 % (0.1-12.0); Hematocrit 40.2 % (42.0-52.0); Hemoglobin 13.2 g/dL (14.1-18.0); Lymphocytes % 13.1 % (10-50); Mean Corpuscular HGB Conc 32.8 g/dL (31.8-35.4); Mean Corpuscular Hemoglobin 33.3 pg (27.0-31.2); Mean Corpuscular Volume 101.3 fl (80-94); Mean Platelet Volume 8.9 fl (7.4-10.4); Monocytes # 0.5 K/mm3 (0.1-1.0); Monocytes % 6.4 % (1.7-9.3); Neutrophils # 6.2 K/mm3 (1.8-7.8); Neutrophils % 78.7 % (37.0-80.0); Platelet Count 200 K/mm3 (142-424); Red Blood Count 3.97 M/mm3 (4.60-6.20); Red Cell Distribution Width 15.3 % (11.5-17.5); White Blood Count 7.8 K/mm3 (4.8-10.8)
[2022-03-25 06:38] LABS: Alanine Aminotransferase 389 U/L (12-78); Albumin Level 3.6 g/dl (3.5-5.0); Albumin/Globulin Ratio 1.2 (1.1-1.8); Alkaline Phosphatase 498 U/L (38-126); Anion Gap 10.7 mEq/L (5-15); Aspartate Amino Transferase 718 U/L (17-59); Bilirubin,Total 1.8 mg/dl (0.2-1.3); Blood Urea Nitrogen 12 mg/dl (9-20); Calcium 8.6 mg/dl (8.4-10.2); Carbon Dioxide 34 mmol/L (22.0-30.0); Chloride 90 mmol/L (98-107); Chol/HDL Ratio 13.1 (1-3.5); Cholesterol 197 mg/dl (140-200); Creatinine Clearance Estimated 43 mL/min (50-200); Estimated Glomerular Filt Rate 27 ml/min (>60); GFR (African American) 32 ML/MIN (>60); Glucose 106 mg/dl (74-100); HDL Cholesterol 15 mg/dl (40-60); Sodium 132 mmol/L (136-145); Total Protein,Serum 6.6 g/dl (6.3-8.2)
[2022-03-25 06:48] LABS: Triglycerides 760 mg/dl (30-150)
[2022-03-25 06:50] LABS: Potassium 2.7 mmoL/L (3.5-5.1)
--- NOTE | 2022-03-25 06:53 | PC.NURSE ---
notified MD Sloan of pt's critical potassium of 2.7, that K+ was 2.3 yesterday, and that pt gets 20mEq K+ PO scheduled TID; no new orders at this time
[2022-03-25 08:00] VITALS: BP 124/72; PULSE 81; RESP 16; TEMP 36.7; O2SAT 97
--- NOTE | 2022-03-25 08:07 | HMH.ACPN2 ---
<Gita Crocker - Last Filed: 03/25/22 08:07> Internal Medicine - PN: Subj *Date: 03/25/22 *Time: 08:07 Interval history: Patient is sitting up in the bed crosslegged watching TV and awaiting surgical visit. He has some abdominal discomfort mostly described as a lot of gurgling. He has some faint nausea but was able to tolerate clear liquids. He has been experiencing heartburn. He has had no vomiting and no diarrhea. He denies chest pain and shortness of breath. He ambulates without difficulty. States the Ativan helped him to sleep just right. Exam Vital signs and Labs for Last 24 Hours: Temp Pulse Resp BP Pulse Ox 98.1 F 68 16 121/65 94 L 03/25/22 03:27 03/25/22 03:27 03/25/22 03:27 03/25/22 03:27 03/25/22 03:27 Laboratory Results - last 24 hr 03/24/22 09:00: Troponin I 0.06 H 03/24/22 09:00: Lactate 1.4 03/24/22 12:00: Troponin I 0.05 H 03/25/22 06:05: WBC 7.8, RBC 3.97 L, Hgb 13.2 L, Hct 40.2 L, MCV 101.3 H, MCH 33.3 H, MCHC 32.8, RDW 15.3, Plt Count 200, MPV 8.9, Neut % (Auto) 78.7, Lymph % (Auto) 13.1, [place] % (Auto) 6.4, Eos % (Auto) 0.7, Baso % (Auto) 1.0, Neut # (Auto) 6.2, Lymph # (Auto) 1.0, [place] # (Auto) 0.5, Eos # (Auto) 0.1, Baso # (Auto) 0.1 03/25/22 06:05: Sodium 132 L, Potassium 2.7 L*, Chloride 90 L, Carbon Dioxide 34 H, Anion Gap 10.7, BUN 12 D, Creatinine 2.50 H, Estimated Creat Clear 43, Estimated GFR 27 L, Est GFR ( Amer) 32 L, Glucose 106 H, Calcium 8.6, Total Bilirubin 1.8 H, AST 718 H* D, ALT 389 H*, Alkaline Phosphatase 498 H, Total Protein 6.6, Albumin 3.6 D, Globulin 3.0, Albumin/Globulin Ratio 1.2, Triglycerides 760 H, Cholesterol 197, HDL Cholesterol 15 L, Cholesterol/HDL Ratio 13.1 H I & O for Last 24 hours: Intake & Output 03/22/22 03/23/22 03/24/22 03/25/22 11:59 11:59 11:59 11:59 Intake Total 240 / 240 1967 / 1967 Output Total 1750 / 1750 Balance 240 / 240 218 / 218 Weight 191 lb 206 lb 4.8 oz - Constitutional no acute distress Comments: Sitting up in the bed crosslegged and appears to be comfortable - *Routine Respiratory Exam Present: CTA bilaterally (Anteriorly and posteriorly) - *Routine Cardiovascular Exam Present: RRR - *Routine Abdominal Exam Present: soft, normoactive bowel sounds, tenderness (Diffusely tender in all upper quadrants and on the right), distended. Absent: rigid - *Routine Extremities Exam Absent: edema, calf tenderness - *Routine Neurological Exam Present: alert, oriented X3 Assessment and Plan (1) Cholelithiasis and acute cholecystitis without obstruction Status: Acute Category: Medical Code(s): K80.00 - Calculus of gallbladder with acute cholecystitis without obstruction (2) Acute pancreatitis Status: Acute Category: Medical Code(s): K85.90 - Acute pancreatitis without necrosis or infection, unspecified (3) Hypokalemia Status: Acute Category: Medical Code(s): E87.6 - Hypokalemia (4) Alcohol abuse Status: Chronic Category: Social Hx Code(s): F10.10 - Alcohol abuse, uncomplicated (5) Coronary artery disease Status: Chronic Qualifiers: Coronary Disease-Associated Artery/Lesion type: [place] artery [place] vs. transplanted heart: [place] heart Associated angina: without angina Qualified Code(s): I25.10 - Atherosclerotic heart disease of [place] coronary artery without angina pectoris Category: Medical Code(s): I25.10 - Atherosclerotic heart disease of [place] coronary artery without angina pectoris (6) Acute on chronic renal insufficiency Status: Acute Category: Medical Code(s): N28.9 - Disorder of kidney and ureter, unspecified; N18.9 - Chronic kidney disease, unspecified (7) COPD (chronic obstructive pulmonary disease) Status: Chronic Qualifiers: COPD type: unspecified COPD Qualified Code(s): J44.9 - Chronic obstructive pulmonary disease, unspecified Category: Medical Code(s): J44.9 - Chronic obstructive pulmonary disease, unspecified
--- NOTE | 2022-03-25 08:11 | P.CONPHA_ITS ---
[facility] Pharm[facility] VTE Monitoring - Patient Demographics Admission date: 03/25/22 Report Date: 03/25/22 Time: 08:11 Allergies/Adverse Reactions: Patient Allergies atorvastatin Adverse Reaction (Severe, Verified 03/12/22 10:54) Height: 1.83 m Weight: 93.576 kg Patient Problems: Current Active Problems (Last Updated 03/12/22 @ 11:53 by Hue Gilman APRN) Cholelithiasis and acute cholecystitis without obstruction (Acute) Hypokalemia (Acute) Renal insufficiency (Acute) Acute pancreatitis (Acute) Acute on chronic renal insufficiency (Acute) Alcohol abuse (Chronic) Ex-smoker (Acute) COPD (chronic obstructive pulmonary disease) (Chronic) Coronary artery disease (Chronic) - VTE Risk Labs: VTE Related Lab Results Hgb 13.2 g/dL (14.1-18.0) L 03/25/22 06:05 Hct 40.2 % (42.0-52.0) L 03/25/22 06:05 Plt Count 200 K/mm3 (142-424) 03/25/22 06:05 BUN 12 mg/dl (9-20) D 03/25/22 06:05 Creatinine 2.50 mg/dl (0.66-1.25) H 03/25/22 06:05 Estimated Creat Clear 43 mL/min (50-200) 03/25/22 06:05 VTE Score: 2 VTE Risk Level: Very Low Risk Clinical Trial Participant: No - Prophylaxis VTE Prophylaxis Ordered?: Yes Types of VTE Prophylaxis: TEDS Knee High
--- NOTE | 2022-03-25 11:47 | PC.NURSE ---
Sleeping SOUNDLY at this time. Not even aware of IV pump beeping.
[2022-03-25 12:00] VITALS: BP 140/92; PULSE 100; PULSE 68; RESP 16; TEMP 36.7; O2SAT 97
--- NOTE | 2022-03-25 14:24 | HMH.GSCON ---
*Admission Date: 03/25/22 *Reason for consult:: Gallbladder disease *History of present illness: Patient is a 57-year-old white male with history of COPD, hypertension, coronary disease, GERD, ethanol abuse. He has been having some intermittent bouts of abdominal pain with some associated nausea and occasional vomiting for several weeks. He localizes the pain essentially to the upper abdomen. He does have some aggravation with food intake. He states that he drinks alcohol daily. He had an episode in the evening of 03/23/2022 which was somewhat more severe than usual. He presented to the emergency department in the very small order cutter hours of 03/24/2022. He was found to have elevation of liver function tests and pancreatic enzymes. Noted he had AST of 1381, ALT 637, alkaline phosphatase 599, bilirubin 2.8, lipase 458, potassium 2.3, sodium 125. He underwent CT scan of the abdomen and pelvis which revealed findings of mildly distended gallbladder with some small stones. Pancreas was normal. He was admitted for inpatient management and surgical consultation. He has shown some slight improvement in his liver function test. He underwent gallbladder ultrasound which revealed normal common bile duct measuring 5 mm. There were findings of hepatomegaly and fatty infiltration of the liver. Small gallstone seen. Review of Systems - Review of Systems Review of systems:: pertinent systems reviewed and negative unless documented below - *Neurologic Reports abnormal hearing, Reports burning sensations (In both feet), Reports dizziness, Denies confusion, Denies localized weakness, Denies seizure-like activity [facility] History I have reviewed the patient's past medical history: Yes Medical History: Reports:: Chronic Obstructive Pulmonary Disease (COPD), Coronary Artery Disease (s/p stents), Gastroesophageal Reflux Disease(GERD), Hyperlipidemia, Hypertension Denies:: Cancer, Diabetes Mellitus Type 1, Diabetes Mellitus Type 2, MRSA, Seizures *Have you ever received a pneumonia vaccine?: No *Have you received a flu vaccine this season?: No Other Medical History: Reports: Arthritis (Seropositive rheumatoid arthritis) Other Surgeries: Yes: Cardiac Catheterization, Colonoscopy, Coronary Stent, Other Amputation: No - *Social History Last grade of school completed: 9th or 10th Smoking Status: Former smoker Tobacco Type: cigarettes # Packs/Day (cigarettes): 20 Alcohol Intake: current Alcohol Intake Frequency:: 3 or more drinks per day Substance Use Type: denies use *Occupational Status:: retired Household Members: spouse *Travel in the last 8 weeks: None Family Hx:: Cancer (colon), Coronary Artery Disease Meds Home Medications Medication Instructions Recorded Confirmed Type aspirin 81 mg tablet,delayed 81 mg PO DAILY 03/12/18 03/24/22 History release montelukast 10 mg tablet 10 mg PO DAILY tab 01/01/22 03/24/22 History testosterone 30 mg/actuation (1.5 1 applic TD DAILY ml 01/01/22 03/24/22 History mL) transderm solution metered pump famotidine 20 mg tablet 20 mg PO BID PRN #60 tab 03/19/22 03/24/22 Rx Clopidogrel Bisulfate [Plavix] 75 mg PO DAILY 03/24/22 03/24/22 History Potassium Chloride 20 meq PO DAILY 03/24/22 03/24/22 History Rosuvastatin Calcium 40 mg PO DAILY 03/24/22 03/24/22 History dilTIAZem HCl [Diltiazem 180mg 180 mg PO BID 03/24/22 03/24/22 History 24Hr ER Cap] hydroCHLOROthiazide [HCTZ 25mg 25 mg PO DAILY 03/24/22 03/24/22 History tab] predniSONE [Deltasone 20mg 20 mg PO DIRECTED 03/24/22 03/25/22 History tablet] Omeprazole [Omeprazole 40mg 40 mg PO BID 03/25/22 03/25/22 History Capsule] Allergies Allergy/AdvReac Type Severity Reaction Status Date / Time atorvastatin AdvReac Severe Verified 03/12/22 10:54 Exam Vital signs and Labs for Last 24 Hours: Temp Pulse Resp BP Pulse Ox 98.0 F 68 16 140/92 H 97 03/25/22 12:00 03/25/22 12:00 03/25/22 12:00 03/25/22 12:00 08
--- NOTE | 2022-03-25 14:26 | PC.NURSE ---
rounded on patient. noted that surgeon had not rounded. notified md office, and they stated they would be in contact with the surgeon. patient has been eating ice chips. asked md for order for patients testosterone to be ordered. awaiting for notification on this. visiting with family at bedside. no other questions. stated we would keep them updated on plan as we heard. encouraged them to ring out as needed
--- NOTE | 2022-03-25 14:57 | PC.NURSE ---
spoke with . stated ptient could have his home dosing of testosterone. medication is locked in drawer currently.
[2022-03-25 15:42] VITALS: BP 137/78; PULSE 79; RESP 16; TEMP 36.7; O2SAT 96
[2022-03-25 18:09] LABS: INR 0.96 (0.9-1.1); Prothrombin Time 10.9 seconds (10.1-12.5)
[2022-03-25 18:35] VITALS: BP 122/66; PULSE 66; RESP 17; O2SAT 99
[2022-03-25 20:00] VITALS: BP 128/80; PULSE 87; RESP 16; TEMP 36.6; O2SAT 95
[2022-03-26 04:00] VITALS: BP 113/81; PULSE 72; RESP 18; TEMP 36.9; O2SAT 92
[2022-03-26 05:00] VITALS: BMI 27.0
--- NOTE | 2022-03-26 05:22 | PC.NURSE ---
Patient has been a&0 x4. Patient raygoza shad no episodes of vomiting this shift. Patient tolerated CL diet well. Patient has now been NPO since MN. Patient is awaiting MRI this AM.
[2022-03-26 07:14] LABS: Basophils # 0.1 K/mm3 (0-0.2); Basophils % 0.8 % (0.1-2.0); Eosinophils # 0.1 K/mm3 (0.0-0.4); Eosinophils % 0.8 % (0.1-12.0); Hematocrit 43.2 % (42.0-52.0); Hemoglobin 13.1 g/dL (14.1-18.0); Lymphocytes # 1.4 K/mm3 (0.7-4.5); Lymphocytes % 14.8 % (10-50); Mean Corpuscular HGB Conc 30.3 g/dL (31.8-35.4); Mean Corpuscular Volume 105.7 fl (80-94); Monocytes # 0.7 K/mm3 (0.1-1.0); Monocytes % 7.6 % (1.7-9.3); Neutrophils # 7.1 K/mm3 (1.8-7.8); Platelet Count 248 K/mm3 (142-424); Red Blood Count 4.09 M/mm3 (4.60-6.20); Red Cell Distribution Width 15.9 % (11.5-17.5); White Blood Count 9.4 K/mm3 (4.8-10.8)
[2022-03-26 07:23] LABS: Chloride 95 mmol/L (98-107); Sodium 136 mmol/L (136-145)
[2022-03-26 07:25] LABS: Alanine Aminotransferase 310 U/L (12-78); Aspartate Amino Transferase 411 U/L (17-59); Blood Urea Nitrogen 12 mg/dl (9-20); Creatinine Clearance Estimated 43 mL/min (50-200); Estimated Glomerular Filt Rate 28 ml/min (>60); GFR (African American) 34 ML/MIN (>60)
[2022-03-26 07:26] LABS: Albumin/Globulin Ratio 1.3 (1.1-1.8); Alkaline Phosphatase 453 U/L (38-126); Anion Gap 8.9 mEq/L (5-15); Calcium 8.2 mg/dl (8.4-10.2); Carbon Dioxide 35 mmol/L (22.0-30.0); Glucose 105 mg/dl (74-100)
[2022-03-26 07:34] LABS: Potassium 2.9 mmoL/L (3.5-5.1)
--- NOTE | 2022-03-26 07:54 | P.PN_ITS ---
Subjective Narrative: Patient still complains of some abdominal soreness. Progress Note: A&P (1) Cholelithiasis and acute cholecystitis without obstruction Status: Acute (2) Acute pancreatitis Status: Acute (3) Hypokalemia Status: Acute (4) Alcohol abuse Status: Chronic (5) Coronary artery disease Status: Chronic (6) Acute on chronic renal insufficiency Status: Acute (7) COPD (chronic obstructive pulmonary disease) Status: Chronic (8) Ex-smoker Status: Acute Assessment and Plan for All Diagnoses:: Clinical scenario is somewhat confusing. His laboratory studies seem more consistent with primary hepatic etiology potentially. He does have gallstones seen on ultrasound with normal common bile duct. Ideally he should undergo biliary tree evaluation potentially with MRCP. Renal function may be an issue. Would not be a candidate for immediate surgical intervention due to his persistent hypokalemia. Exam Vital signs and Labs for Last 24 Hours: Temp Pulse Resp BP Pulse Ox 98.4 F 72 18 113/81 92 L 03/26/22 04:00 03/26/22 04:00 03/26/22 04:00 03/26/22 04:00 03/26/22 04:00 Laboratory Results - last 24 hr 03/25/22 17:25: PT 10.9, INR 0.96 03/26/22 06:28: WBC 9.4, RBC 4.09 L, Hgb 13.1 L, Hct 43.2, MCV 105.7 H, MCH 32.0 H, MCHC 30.3 L, RDW 15.9, Plt Count 248, MPV 9.0, Neut % (Auto) 76.0, Lymph % (Auto) 14.8, [place] % (Auto) 7.6, Eos % (Auto) 0.8, Baso % (Auto) 0.8, Neut # (Auto) 7.1, Lymph # (Auto) 1.4, [place] # (Auto) 0.7, Eos # (Auto) 0.1, Baso # (Auto) 0.1 03/26/22 06:28: Sodium 136, Potassium 2.9 L*, Chloride 95 L, Carbon Dioxide 35 H , Anion Gap 8.9, BUN 12, Creatinine 2.40 H, Estimated Creat Clear 43, Estimated GFR 28 L, Est GFR ( Amer) 34 L, Glucose 105 H, Calcium 8.2 L, Total Bilirubin 2.0 H, AST 411 H* D, ALT 310 H*, Alkaline Phosphatase 453 H, Total Protein 7.0, Albumin 4.0 D, Globulin 3.0, Albumin/Globulin Ratio 1.3 I & O for Last 24 hours: Intake & Output 03/23/22 03/24/22 03/25/22 03/26/22 11:59 11:59 11:59 11:59 Intake Total 240 / 240 2448 / 2448 840 / 840 Output Total 1750 / 1750 Balance 240 / 240 698 / 698 840 / 840 Weight 191 lb 206 lb 4.8 oz 199 lb 7 oz Microbiology Reports for the Last 24 Hours: Microbiology 03/24/22 04:40 Blood Blood Culture - Preliminary NO GROWTH AFTER 48 HOURS 03/24/22 04:40 Blood Blood Culture - Preliminary NO GROWTH AFTER 48 HOURS - *Routine Abdominal Exam Comments: Tender in epigastrium
[2022-03-26 08:00] VITALS: BP 128/88; PULSE 78; RESP 18; TEMP 36.8; O2SAT 97
--- NOTE | 2022-03-26 08:44 | HMH.ACPN2 ---
<Gita Crocker - Last Filed: 03/26/22 08:44> Internal Medicine - PN: Subj *Date: 03/26/22 *Time: 08:44 Interval history: Patient states he is depressed this AM. Continues to have some abdominal discomfort. He has only had clear liquids thus far and nothing since yesterday at lunch. His bowels did move this morning he describes them as being sticky. He is ambulated in the room. CBC this a.m. shows a white blood cell count of 9400 with a hemoglobin of 13.1 hematocrit of 43.2. Blood chemistries show a low potassium at 2.9, and BUN of 12 and creatinine of 2.4 with improved AST and ALT at 411/310; bilirubin did increase to 2. Triglycerides were noted to be 760 yesterday. Patient has been seen by surgery, Dr. Garcia, who feels his laboratory studies are more consistent with primary hepatic etiology. Patient was noted to have gallstones on his ultrasound with a normal common bile duct. He feels he should undergo a biliary tree evaluation with MRCP and that he is not an immediate candidate for surgical intervention due to his persistent hypokalemia. Right upper quadrant ultrasound revealed the following: IMPRESSION: 1. Hepatomegaly with fatty infiltration of the liver. 2. Small gallstone seen near the gallbladder neck. Mild fluid distention of the gallbladder. Exam Vital signs and Labs for Last 24 Hours: Temp Pulse Resp BP Pulse Ox 98.2 F 78 18 128/88 97 03/26/22 08:00 03/26/22 08:00 03/26/22 08:00 03/26/22 08:00 03/26/22 08:00 Laboratory Results - last 24 hr 03/25/22 17:25: PT 10.9, INR 0.96 03/26/22 06:28: WBC 9.4, RBC 4.09 L, Hgb 13.1 L, Hct 43.2, MCV 105.7 H, MCH 32.0 H, MCHC 30.3 L, RDW 15.9, Plt Count 248, MPV 9.0, Neut % (Auto) 76.0, Lymph % (Auto) 14.8, [place] % (Auto) 7.6, Eos % (Auto) 0.8, Baso % (Auto) 0.8, Neut # (Auto) 7.1, Lymph # (Auto) 1.4, [place] # (Auto) 0.7, Eos # (Auto) 0.1, Baso # (Auto) 0.1 03/26/22 06:28: Sodium 136, Potassium 2.9 L*, Chloride 95 L, Carbon Dioxide 35 H, Anion Gap 8.9, BUN 12, Creatinine 2.40 H, Estimated Creat Clear 43, Estimated GFR 28 L, Est GFR ( Amer) 34 L, Glucose 105 H, Calcium 8.2 L, Total Bilirubin 2.0 H, AST 411 H* D, ALT 310 H*, Alkaline Phosphatase 453 H, Total Protein 7.0, Albumin 4.0 D, Globulin 3.0, Albumin/Globulin Ratio 1.3 I & O for Last 24 hours: Intake & Output 03/23/22 03/24/22 03/25/22 03/26/22 11:59 11:59 11:59 11:59 Intake Total 240 / 240 2448 / 2448 840 / 840 Output Total 1750 / 1750 Balance 240 / 240 698 / 698 840 / 840 Weight 191 lb 206 lb 4.8 oz 199 lb 7 oz Microbiology Reports for the Last 24 Hours: Microbiology 03/24/22 04:40 Blood Blood Culture - Preliminary NO GROWTH AFTER 48 HOURS 03/24/22 04:40 Blood Blood Culture - Preliminary NO GROWTH AFTER 48 HOURS - Constitutional no acute distress Comments: Tearful - *Routine Respiratory Exam Present: CTA bilaterally (Anteriorly and posteriorly) - *Routine Cardiovascular Exam Present: RRR - *Routine Abdominal Exam Present: soft, normoactive bowel sounds, tenderness (All upper quadrants greater in the right upper quadrant) - *Routine Extremities Exam Absent: edema, calf tenderness - *Routine Neurological Exam Present: alert, oriented X3 - Routine Psychiatric Exam Present: depressed Assessment and Plan (1) Cholelithiasis and acute cholecystitis without obstruction Status: Acute Category: Medical Code(s): K80.00 - Calculus of gallbladder with acute cholecystitis without obstruction (2) Acute pancreatitis Status: Acute Category: Medical Code(s): K85.90 - Acute pancreatitis without necrosis or infection, unspecified (3) Hypokalemia Status: Acute Category: Medical Code(s): E87.6 - Hypokalemia (4) Alcohol abuse Status: Chronic Category: Social Hx Code(s): F10.10 - Alcohol abuse, uncomplicated (5) Coronary artery disease Status: Chronic Qualifiers:
[2022-03-26 09:13] LABS: Magnesium 2.3 mg/dl (1.6-2.3)
--- NOTE | 2022-03-26 11:43 | MR_ITS ---
FINAL REPORT TECHNIQUE: Multiplanar imaging of the abdomen was obtained without administration of intravenous contrast. CLINICAL HISTORY: acute cholecystitis acute cholecysitis best images possible due to patient not following instruction when breathing COMPARISON: No previous. FINDINGS: Overall exam quality was significantly degraded secondary to patient motion. On the coronal images, the liver is enlarged, measuring up to 20.0 cm in craniocaudal dimension. On the axial images, gallbladder is significantly distended. However, no gallstones are seen. A minimal amount of sludge is identified in the dependent portion of the gallbladder, best seen on image 19 of series 11.1. There is no definite evidence of gallbladder wall thickening or pericholecystic inflammation. There is no significant intra-or extrahepatic biliary ductal dilatation. Common duct measures approximately 6 mm in diameter. No choledocholithiasis are identified. IMPRESSION: 1. Significantly distended gallbladder with small amount of sludge in the dependent portion the gallbladder. 2. No evidence of acute cholecystitis. 3. Moderate hepatomegaly. Authenticated and ERN
[2022-03-26 12:07] VITALS: BMI 27.0
[2022-03-26 12:49] LABS: Direct LDL Cholesterol 40 mg/dL (100-129)
--- NOTE | 2022-03-26 15:33 | P.PN_ITS ---
Subjective Narrative: Patient underwent MRCP today. This reveals gallbladder distention with no gallstones. Minimal amount of sludge. No gallbladder wall thickening or pericholecystic inflammation. No significant intra or extrahepatic biliary ductal dilatation. Normal common bile duct of 6 mm. No evidence of choledocholithiasis. No evidence of acute cholecystitis. Moderate hepatomegaly. Progress Note: A&P (1) Cholelithiasis and acute cholecystitis without obstruction Status: Acute (2) Acute pancreatitis Status: Acute (3) Hypokalemia Status: Acute (4) Alcohol abuse Status: Chronic (5) Coronary artery disease Status: Chronic (6) Acute on chronic renal insufficiency Status: Acute (7) COPD (chronic obstructive pulmonary disease) Status: Chronic (8) Ex-smoker Status: Acute Assessment and Plan for All Diagnoses:: Given the patient's findings on the MRCP it is more convincing that his primary etiology is secondary to liver pathology. He may have some degree of chronic alcohol induced hepatitis with an acute exacerbation potentially of viral hepatitis. I have ordered viral hepatitis serology. I will go ahead and start him on a diet. He may require cholecystectomy potentially with cholangiogram but at this time I would put this as secondary priority. Exam Vital signs and Labs for Last 24 Hours: Temp Pulse Resp BP Pulse Ox 98.2 F 78 18 128/88 97 03/26/22 08:00 03/26/22 08:00 03/26/22 08:00 03/26/22 08:00 03/26/22 08:00 Laboratory Results - last 24 hr 03/25/22 06:05: LDL Cholesterol Direct 40 L 03/25/22 17:25: PT 10.9, INR 0.96 03/26/22 06:28: WBC 9.4, RBC 4.09 L, Hgb 13.1 L, Hct 43.2, MCV 105.7 H, MCH 32.0 H, MCHC 30.3 L, RDW 15.9, Plt Count 248, MPV 9.0, Neut % (Auto) 76.0, Lymph % (Auto) 14.8, [place] % (Auto) 7.6, Eos % (Auto) 0.8, Baso % (Auto) 0.8, Neut # (Auto) 7.1, Lymph # (Auto) 1.4, [place] # (Auto) 0.7, Eos # (Auto) 0.1, Baso # (Auto) 0.1 03/26/22 06:28: Sodium 136, Potassium 2.9 L*, Chloride 95 L, Carbon Dioxide 35 H , Anion Gap 8.9, BUN 12, Creatinine 2.40 H, Estimated Creat Clear 43, Estimated GFR 28 L, Est GFR ( Amer) 34 L, Glucose 105 H, Calcium 8.2 L, Total Bilirubin 2.0 H, AST 411 H* D, ALT 310 H*, Alkaline Phosphatase 453 H, Total Protein 7.0, Albumin 4.0 D, Globulin 3.0, Albumin/Globulin Ratio 1.3 03/26/22 06:28: Magnesium 2.3 I & O for Last 24 hours: Intake & Output 03/24/22 03/25/22 03/26/22 03/27/22 11:59 11:59 11:59 11:59 Intake Total 240 / 240 2448 / 2448 840 / 840 Output Total 1750 / 1750 0 / 0 Balance 240 / 240 698 / 698 840 / 840 Weight 191 lb 206 lb 4.8 oz 199 lb 7 oz 199 lb 6.882 oz Microbiology Reports for the Last 24 Hours: Microbiology 03/24/22 04:40 Blood Blood Culture - Preliminary NO GROWTH AFTER 48 HOURS 03/24/22 04:40 Blood Blood Culture - Preliminary NO GROWTH AFTER 48 HOURS
[2022-03-26 15:44] VITALS: BP 128/78; PULSE 80; RESP 16; TEMP 36.6; O2SAT 98
--- NOTE | 2022-03-26 16:21 | PC.NURSE ---
Pt is alert and oriented x4. Lungs are clear, bowel sounds active x4. He remains on RA and tolerating well. Abdomen is soft and TTP. Otherwise he denies any pain. He's ambulated to the bathroom independently. Last BM was this morning. He is currently resting in bed with his eyes closed. Bed is locked and in the lowest position, call light is within reach.
[2022-03-26 20:00] VITALS: BP 129/80; PULSE 70; RESP 18; TEMP 36.6; O2SAT 95
--- NOTE | 2022-03-26 20:14 | PC.NURSE ---
wrped iv for pt toshower.
--- NOTE | 2022-03-27 01:54 | PC.NURSE ---
Patient a&o x4. Bowl sounds active x4. Abd soft yet tender. Patient tolerated bland diet well. VSS. Patient tolerated RA with sats above 90%. Patient ambulates to restroom independently. No vomiting thus far in shift. Patient is eager to go home. Early entry r/t scheduled downtime.
[2022-03-27 04:00] VITALS: BP 129/28; PULSE 80; RESP 18; TEMP 36.9; O2SAT 98; BMI 27.2
[2022-03-27 08:00] VITALS: BP 157/85; PULSE 88; RESP 16; TEMP 36.6; O2SAT 96
[2022-03-27 08:20] LABS: Alanine Aminotransferase 207 U/L (12-78); Albumin Level 3.5 g/dl (3.5-5.0); Albumin/Globulin Ratio 1.3 (1.1-1.8); Alkaline Phosphatase 395 U/L (38-126); Anion Gap 11.2 mEq/L (5-15); Aspartate Amino Transferase 195 U/L (17-59); Bilirubin,Total 1.5 mg/dl (0.2-1.3); Calcium 8.3 mg/dl (8.4-10.2); Carbon Dioxide 29 mmol/L (22.0-30.0); Chloride 98 mmol/L (98-107); Globulin 2.8 g/dL (1.3-3.2); Glucose 100 mg/dl (74-100); Potassium 3.2 mmoL/L (3.5-5.1); Sodium 135 mmol/L (136-145); Total Protein,Serum 6.3 g/dl (6.3-8.2)
[2022-03-27 09:06] LABS: Blood Urea Nitrogen 15 mg/dl (9-20); Creatinine Clearance Estimated 52 mL/min (50-200); Estimated Glomerular Filt Rate 35 ml/min (>60); GFR (African American) 42 ML/MIN (>60)
--- NOTE | 2022-03-27 11:43 | EXP.SURG.PN ---
Subjective Patient reports: no new complaints Narrative: The patient states that he feels a little better . He is hoping to go home soon . Exam Data for Last 24 hours Vital signs and Labs for Last 24 Hours: Temp Pulse Resp BP Pulse Ox 97.8 F 88 16 157/85 H 96 03/27/22 08:00 03/27/22 08:00 03/27/22 08:00 03/27/22 08:00 03/27/22 08:00 Laboratory Results - last 24 hr 03/25/22 06:05: LDL Cholesterol Direct 40 L 03/27/22 06:25: Sodium 135 L, Potassium 3.2 L, Chloride 98, Carbon Dioxide 29, Anion Gap 11.2, BUN 15, Creatinine 2.00 H, Estimated Creat Clear 52, Estimated GFR 35 L, Est GFR ( Amer) 42 L D, Glucose 100, Calcium 8.3 L, Total Bilirubin 1.5 H, AST 195 H D, ALT 207 H D, Alkaline Phosphatase 395 H, Total Protein 6.3, Albumin 3.5 D, Globulin 2.8, Albumin/Globulin Ratio 1.3 I & O for Last 24 hours: Intake & Output 03/24/22 03/25/22 03/26/22 03/27/22 11:59 11:59 11:59 11:59 Intake Total 240 / 240 2448 / 2448 840 / 840 2246 / 2246 Output Total 1750 / 1750 0 / 0 Balance 240 / 240 698 / 698 840 / 840 2246 / 2246 Weight 191 lb 206 lb 4.8 oz 199 lb 7 oz 199 lb 6.882 oz Constitutional Constitutional: no acute distress *Routine Respiratory Exam Respiratory: Absent respiratory distress *Routine Cardiovascular Exam Cardiovascular: Absent tachycardia *Routine Abdominal Exam Abdominal: Present soft Progress Note: A&P Assessment and plan (1) Cholelithiasis and acute cholecystitis without obstruction: Problem details: The patient's current laboratory findings and physical exam findings may be indicative of primary hepatic anomaly as opposed to biliary pathology. Follow-up hepatitis panel May ultimately require cholecystectomy; however, further evaluation with regard to non-biliary pathology warranted (gastroenterology consultation) Status: Acute (2) Acute pancreatitis: Status: Acute (3) Hypokalemia: Status: Acute (4) Alcohol abuse: Status: Chronic (5) Coronary artery disease: Status: Chronic (6) Acute on chronic renal insufficiency: Status: Acute (7) COPD (chronic obstructive pulmonary disease): Status: Chronic (8) Ex-smoker: Status: Acute
--- NOTE | 2022-03-27 12:23 | EXP.ACUTE.PN ---
Documented by User: GAURAV Roldan 03/27/22 12:29 Subjective *Date: 03/27/22 *Time: 12:27 Interval history: Patient states he is feeling a little bit better this morning. He is anxious to go home. He states he did tolerate his diet and has some nausea but has not had any vomiting. His abdominal pain is still present and is diffuse. Medical Exam Vital signs and Labs for Last 24 Hours: Temp Pulse Resp BP Pulse Ox 97.8 F 88 16 157/85 H 96 03/27/22 08:00 03/27/22 08:00 03/27/22 08:00 03/27/22 08:00 03/27/22 08:00 Laboratory Results - last 24 hr 03/25/22 06:05: LDL Cholesterol Direct 40 L 03/27/22 06:25: Sodium 135 L, Potassium 3.2 L, Chloride 98, Carbon Dioxide 29, Anion Gap 11.2, BUN 15, Creatinine 2.00 H, Estimated Creat Clear 52, Estimated GFR 35 L, Est GFR ( Amer) 42 L D, Glucose 100, Calcium 8.3 L, Total Bilirubin 1.5 H, AST 195 H D, ALT 207 H D, Alkaline Phosphatase 395 H, Total Protein 6.3, Albumin 3.5 D, Globulin 2.8, Albumin/Globulin Ratio 1.3 I & O for Labs for Last 24 Hours: Intake & Output 03/25/22 03/26/22 03/27/22 03/28/22 11:59 11:59 11:59 11:59 Intake Total 2448 / 2448 840 / 840 2246 / 2246 Output Total 1750 / 1750 0 / 0 Balance 698 / 698 840 / 840 2246 / 2246 Weight 206 lb 4.8 oz 199 lb 7 oz 201 lb 2 oz Constitutional: no acute distress Respiratory: CTA bilaterally Cardiac: Reg Rate and Rhythm GI: soft, tenderness (diffuse) and guarding Extremities: edema Skin: intact Neuro: alert Assessment and Plan *Assessment and plan (1) Hypokalemia: Status: Resolved Category: Medical Code(s): E87.6 - Hypokalemia (2) Acute pancreatitis: Status: Resolved Category: Medical Code(s): K85.90 - Acute pancreatitis without necrosis or infection, unspecified (3) Acute on chronic renal insufficiency: Status: Acute Category: Medical Code(s): N28.9 - Disorder of kidney and ureter, unspecified; N18.9 - Chronic kidney disease, unspecified (4) Primary hypertension: Status: Chronic Category: Medical Code(s): I10 - Essential (primary) hypertension (5) Alcohol abuse: Status: Chronic Category: Social Hx Code(s): F10.10 - Alcohol abuse, uncomplicated (6) Elevated liver enzymes: Status: Acute Category: Medical Code(s): R74.8 - Abnormal levels of other serum enzymes (7) Hypertriglyceridemia: Status: Acute Category: Medical Code(s): E78.1 - Pure hyperglyceridemia (8) Nausea: Status: Resolved Category: Medical Code(s): R11.0 - Nausea (9) Ex-smoker: Status: Acute Category: Social Hx Code(s): Z87.891 - Personal history of nicotine dependence (10) COPD (chronic obstructive pulmonary disease): Status: Chronic Qualifiers: COPD type: unspecified COPD Qualified Code(s): J44.9 - Chronic obstructive pulmonary disease, unspecified Category: Medical Code(s): J44.9 - Chronic obstructive pulmonary disease, unspecified (11) GERD (gastroesophageal reflux disease): Status: Chronic Qualifiers: Esophagitis presence: esophagitis presence not specified Qualified Code(s): K21.9 - Gastro-esophageal reflux disease without esophagitis Category: Medical Code(s): K21.9 - Gastro-esophageal reflux disease without esophagitis (12) HLD (hyperlipidemia): Status: Chronic Qualifiers: Hyperlipidemia type: mixed hyperlipidemia Qualified Code(s): E78.2 - Mixed hyperlipidemia Category: Medical Code(s): E78.5 - Hyperlipidemia, unspecified (13) Coronary artery disease: Status: Chronic Qualifiers: Associated angina: without angina Coronary Disease-Associated Artery/Lesion type: [place] artery [place] vs. transplanted heart: [place] heart Qualified Code(s): I25.10 - Atherosclerotic heart disease of [place] coronary artery without angina
--- NOTE | 2022-03-27 13:15 | PC.NURSE ---
Patient information sent to Dr. Haddad and was told that Dr. Haddad's office would contact patient about appt per Tamie, truck rental clerk.
--- NOTE | 2022-03-28 14:31 | CARE MANAGER ---
Attempted post-discharge phone interview and patient did not answer, message was left.
--- NOTE | 2022-03-29 12:26 | EXP.DC.SUM ---
General Admission date:: 03/24/22 HPI HPI HPI: Vini is a 57-year-old white male with a history of COPD, hypertension, coronary artery disease, GERD, and ethanol abuse who has been having intermittent bouts of abdominal pain with nausea and vomiting for several weeks.? Pain is usually in the upper abdomen.? It is aggravated by food.? He has had no change in his bowel habits.? Denies fever.? He drinks alcohol daily.? He last had 2 mixed drinks yesterday. He had an episode of pain that started last night and was worse than usual.? He states the pain radiated through his stomach into his back.? He has a history of GERD but denies significant reflux symptoms at this time.? He finally presented to the emergency room early this morning with these complaints.? Work-up was remarkable for elevated liver functions and pancreatic enzymes.? CT scan shows multiple gallstones.? No mention of dilated common duct.? His potassium is low at 2.3.? Creatinine is elevated at 2.6. Hospital Course Hospital Course Hospital Course: The patient presented with clinical and radiographic evidence of acute cholecystitis. His bilirubin and alk phos were both elevated, but the CT scan made no mention of dilated biliary ducts. His lipase was mildly elevated and his transaminases were elevated consistent with his history of alcohol abuse. He had acute on chronic renal insufficiency with a creatinine of 2.6 and a baseline creatinine of 1.6. He was admitted for a consultation for cholecystectomy. He was given IV fluids as well as antibiotics. His potassium was replaced and his renal function and electrolytes were monitored. He was also started on alcohol withdrawal protocol and IV Ativan. He continued with some abdominal discomfort and faint nausea, but was able to tolerate clear liquids. He had no vomiting or diarrhea. His potassium remained low at 2.7 and he had to be given IV potassium along with p.o. potassium. His liver function tests improved. He was seen in consultation by Dr. Garcia who felt the patient's scenario seems more likely consistent with alcoholic induced acute hepatitis and mild chemical pancreatitis with incidental gallstones on imaging. He did not feel that a cholecystectomy should be done at this time. He did feel that an MRCP may be warranted as well as a GI evaluation. An MRCP was scheduled it revealed gallbladder distention with no gallstones and a minimal amount of sludge. There was no gallbladder wall thickening or pericholecystic inflammation. There was no biliary ductal dilatation and the common bile duct was normal as well. Dr. Garcia once again felt his primary etiology was secondary to liver pathology. He was started on a diet and tolerated this. He was anxious to go home and was stable to be discharged with a follow-up with Dr. Garcia, Dr. Alvarez, and with Dr. Haddad of gastroenterology. Exam Data for Last 24 hours Vital signs and Labs for Last 24 Hours: Temp Pulse Resp BP Pulse Ox 97.8 F 88 16 157/85 H 96 03/27/22 08:00 03/27/22 08:00 03/27/22 08:00 03/27/22 08:00 03/27/22 08:00 I & O for Last 24 hours: Intake & Output 03/27/22 03/28/22 03/29/22 03/30/22 11:59 11:59 11:59 11:59 Intake Total 2246 / 2246 Balance 2246 / 2246 Weight 201 lb 2 oz Microbiology Reports for the Last 24 Hours: Microbiology 03/24/22 04:40 Blood Blood Culture - Final NO GROWTH AFTER 5 DAYS 03/24/22 04:40 Blood Blood Culture - Final NO GROWTH AFTER 5 DAYS Narrative: Constitutional: no acute distress Respiratory: CTA bilaterally Cardiac: Reg Rate and Rhythm GI: soft, tenderness (diffuse) and guarding Extremities: edema Skin: intact Neuro: alert DS: Diagnosis Discharge Diagnosis (1) Hypokalemia: Status: Resolved (2) Acute pancreatitis: Status: Resolved (3) Acute on chronic renal insufficiency: Status: Acute (4) Primary hyperte
[2022-03-30 20:00] LABS: Hep A Ab, IgM Negative; Hepatitis B Core Antibody IgM Negative; Hepatitis B Surface Antigen Negative; Hepatitis C Antibody <0.1
== END 2022-03-27 12:41 | disposition home or self-care (01) | DRG 439 ==
LOC: ER 05:54 → 2ND 08:11
PROVIDERS: Surgery; Admitting Provider Family Medicine; Emergency Provider Emergency Medicine; PCP Family Medicine; Visit Provider Family Medicine
DX: K85.90 Acute pancreatitis without necrosis or infection, unspecified (principal); K80.00 Calculus of gallbladder with acute cholecystitis without obstruction; E87.6 Hypokalemia; F10.10 Alcohol abuse, uncomplicated; I25.10 Atherosclerotic heart disease of native coronary artery without angina pectoris; N18.9 Chronic kidney disease, unspecified; J44.9 Chronic obstructive pulmonary disease, unspecified; Z87.891 Personal history of nicotine dependence; E78.5 Hyperlipidemia, unspecified; K21.9 Gastro-esophageal reflux disease without esophagitis; I13.10 Hypertensive heart and chronic kidney disease without heart failure, with stage 1 through stage 4 chronic kidney disease, or unspecified chronic kidney disease; E78.1 Pure hyperglyceridemia
CPT/HCPCS: 36415; 71046; 74176; 74181; 76376; 76705; 80053; 80061; 80074; 81001; 82150; 83605; 83690; 83735; 84145; 84484; 85025; 85610; 85651; 86140; 87040; 93005; 93306; 99285; C9803; J1335; J2405; U0003; U0005

== ENCOUNTER 2023-06-16 16:06 | Emergency (ER) | payer BC, SELFPAY ==
[2023-06-16] VITALS (12 sets, daily range): BP systolic 81–104; BP diastolic 44–68; PULSE 89–110; RESP 14–20; TEMP 36.6; O2SAT 95–98; BMI 29.1
--- OUTSIDE RECORDS SUMMARY | 2023-06-16 16:23 | XMS_ITS | Continuity of Care Document ---
Author Name Unknown Organization [facility] Address [address] [place] [phone] Phone Care Team Providers Care Crime Scene Specialist Name Role Phone Nathan Carrasquillo MD Unavailable Unavailable Allergies, Adverse Reactions, Alerts Substance Reaction Status Criticality No Known Allergies Active No Inform ation Medications Medication Instructions Dosage Effective Dates (start - stop) Status Comments Humira(CF) Pen 40 mg/0.4 mL subcutaneous kit inject 0.4 milliliter by subcutaneous route every 2 weeks in the abdomen or thigh (rotate sites) 40 MG - Active Approved thru 06/06/2022 allopurinol 100 mg tablet take 1 tablet by oral route every day for Gout prevention 100 MG - Active colchicine 0.6 mg tablet 1 tab daily for arthritis - Active prednisone 5 mg tablet Take 4 tablets q.a.m. for 3 days, 3 tablets q.a.m. for 3 days, 2 tablets q.a.m. for 3 days, 1 tablet q.a.m. thereafter - Active Plaquenil 200 mg tablet 1 tablet twice daily for arthritis - Active diltiazem CD 180 mg capsule,extended release 24 hr - Active Trelegy Ellipta 100 mcg-62.5 mcg-25 mcg powder for inhalation - Active omeprazole 40 mg capsule,delayed release - Active cyclobenzaprine
--- NOTE | 2023-06-16 16:24 | ECG_ITS ---
APPROVED REPORT Exam: Resting ECG HR:95 bpm ECG Measurements Heart Rate 95 AXES SC 192 P 74 QRSd 98 QRS 71 QT 326 T 49 QTc 379 Conclusion SINUS RHYTHM NORMAL ECG UNCONFIRMED REPORT Electronically signed by : Bud Aguilar MD 06/17/2023 20:12:01
--- NOTE | 2023-06-16 16:24 | HMH.EDGENADL ---
Discharge Plan Disposition Patient Disposition: Xfer Short-Term Hosp Chief Complaint: Abdominal Pain Prescriptions Prescriptions: No Action aspirin [Adult Low Dose Aspirin] 81 mg tablet,delayed release (DR/EC) 81 mg PO DAILY montelukast 10 mg tablet 10 mg PO DAILY testosterone 30 mg/actuation (1.5 mL) solution in metered pump w/valdez 1 applic TD DAILY furosemide 40 mg tablet 40 mg PO DAILY Patient Comments: TAKE 1 TABLET BY MOUTH EVERY DAY FOR 30 DAYS losartan 50 mg tablet 50 mg PO BID Qty: 180 1RF famotidine 20 mg tablet 20 mg PO BID PRN (Reason: GERD symptoms) Qty: 60 2RF hydrochlorothiazide 25 mg tablet See Rx Instructions .ROUTE .COMPLEX Qty: 90 1RF Dose Instruction: TAKE 1 TABLET BY MOUTH DAILY Rx Instructions: TAKE 1 TABLET BY MOUTH DAILY diltiazem HCl 180 mg capsule,extended release 24hr See Rx Instructions .ROUTE .COMPLEX Qty: 180 1RF Dose Instruction: TAKE 1 TABLET BY MOUTH TWICE DAILY Rx Instructions: TAKE 1 TABLET BY MOUTH TWICE DAILY clopidogrel 75 mg tablet See Rx Instructions .ROUTE .COMPLEX Qty: 90 1RF Dose Instruction: TAKE 1 TABLET BY MOUTH DAILY Rx Instructions: TAKE 1 TABLET BY MOUTH DAILY rosuvastatin 40 MG tablet 40 mg PO DAILY Hold Instructions: until office follow up omeprazole 40 MG capsule,delayed release(DR/EC) 40 mg PO BID potassium chloride 20 MEQ tablet extended release 20 meq PO BID Qty: 60 2RF Referrals Follow up/Referrals: Salvador Alvarez MD [Primary Care Provider] - See instructions Clinical Impressions Clinical Impression: Cirrhosis, Mass of pancreas Instructions Patient Instructions: DI for Acute Abdominal Pain Discharge ED Provider: Jayden Fenton General Adult HPI General Chief complaint: Abdominal Pain Stated complaint: ABDOMINAL PAIN, DIZZY Time Seen by Provider: 06/16/23 16:10 History of Present Illness HPI narrative: Patient is a 58-year-old male with past medical history of alcohol abuse, elevated liver enzymes, COPD, hyperlipidemia, hypertension who presents emergency department for evaluation of abdominal pain. Onset was acute, over the last few days, associated dysuria and nausea. Patient has drank multiple 0.5 to 1 pints of bourbon daily for prolonged amount of time, current drinker. No other acute complaints at this time. Related Data Home Medications Medication Instructions Recorded Confirmed aspirin 81 mg tablet,delayed 81 mg PO DAILY [facility] 03/12/18 01/02/23 release (Adult Low Dose Aspirin) montelukast 10 mg tablet 10 mg PO DAILY allergies 01/01/22 01/02/23 testosterone 30 mg/actuation (1.5 1 applic transdermal DAILY hormone 01/01/22 01/02/23 mL) transderm solution metered pump replacement rosuvastatin 40 mg tablet 40 mg PO DAILY Cholesterol 03/24/22 01/02/23 omeprazole 40 mg capsule,delayed 40 mg PO BID acid reflux 03/25/22 01/02/23 release furosemide 40 mg tablet 40 mg PO DAILY 01/02/23 01/02/23 Previous Rx's Medication Instructions Recorded famotidine 20 mg tablet 20 mg PO BID PRN GERD symptoms #60 03/19/22 tabs potassium chloride 20 mEq 20 meq PO BID Supplement #60 tabs 03/27/22 tablet,extended release hydrochlorothiazide 25 mg tablet See Rx Instructions .Route 11/05/22 .COMPLEX #90 tabs losartan 50 mg tablet 50 mg PO BID #180 tabs 01/02/23 diltiazem HCl 180 mg See Rx Instructions .Route 02/17/23 capsule,extended release 24 hr .COMPLEX #180 caps clopidogrel 75 mg tablet See Rx Instructions .Route 06/11/23 .COMPLEX #90 tabs Allergies Allergy/AdvReac Type Severity Reaction Status Date / Time atorvastatin AdvReac Severe Verified 01/02/23 08:31 [facility] Disclaimer: The information contained in this section may have been updated after the patient was seen, as this information can be updated by other users. Medical History (Updated 06/16/23 @ 22:58 by Jayden Fenton MD)
[2023-06-16 16:35] LABS: Basophils # 0.1 K/mm3 (0-0.2); Eosinophils # 0.1 K/mm3 (0.0-0.4); Eosinophils % 0.8 % (0.1-12.0); Hematocrit 50.1 % (42.0-52.0); Hemoglobin 17.5 g/dL (14.1-18.0); Lymphocytes # 1.7 K/mm3 (0.7-4.5); Lymphocytes % 28.5 % (10-50); Mean Corpuscular Hemoglobin 39.5 pg (27.0-31.2); Mean Corpuscular Volume 112.9 fl (80-94); Monocytes # 0.4 K/mm3 (0.1-1.0); Monocytes % 6.4 % (1.7-9.3); Neutrophils # 3.9 K/mm3 (1.8-7.8); Neutrophils % 63.3 % (37.0-80.0); Platelet Count 260 K/mm3 (142-424); Red Blood Count 4.44 M/mm3 (4.60-6.20); White Blood Count 6.1 K/mm3 (4.8-10.8)
--- NOTE | 2023-06-16 16:51 | PC.NURSE ---
lab states that the green top of blood was hemolyzed and will need to be redrawn, lab will be coming to redraw.
[2023-06-16 17:16] LABS: Coronavirus 19, PCR Not Detected (NotDetected); Influenza A, PCR Not Detected (NotDetected); Influenza B, PCR Not Detected (NotDetected)
[2023-06-16 17:16] LABS: Chloride 102 mmol/L (98-107); Potassium 5.1 mmoL/L (3.5-5.1); Sodium 128 mmol/L (136-145)
[2023-06-16 17:19] LABS: Alanine Aminotransferase 180 U/L (12-78); Albumin Level 3.7 g/dl (3.5-5.0); Albumin/Globulin Ratio 1.1 (1.1-1.8); Alkaline Phosphatase 141 U/L (38-126); Anion Gap 19.1 mEq/L (5-15); Aspartate Amino Transferase 386 U/L (17-59); Bilirubin,Total 1.4 mg/dl (0.2-1.3); Blood Urea Nitrogen 53 mg/dl (9-20); Calcium 7.5 mg/dl (8.4-10.2); Carbon Dioxide 12 mmol/L (22.0-30.0); Creatinine Clearance Estimated 21 mL/min (50-200); Estimated Glomerular Filt Rate 11 ml/min (>60); GFR (African American) 14 ML/MIN (>60); Globulin 3.3 g/dL (1.3-3.2); Glucose 141 mg/dl (74-100)
[2023-06-16 17:27] LABS: Lipase 327 U/L (23-300)
--- NOTE | 2023-06-16 17:31 | CT_ITS ---
PROCEDURE INFORMATION: Exam: CT Abdomen And Pelvis Without Contrast Exam date and time: 06/16/2023 5:39 PM Age: 58 years old Clinical indication: Pain; Other: Periumbilical; Additional info: Periumbilical pain TECHNIQUE: Imaging protocol: Computed tomography of the abdomen and pelvis without contrast. Radiation optimization: All CT scans at this facility use at least one of these dose optimization techniques: automated exposure control; mA and/or kV adjustment per patient size (includes targeted exams where dose is matched to clinical indication); or iterative reconstruction. REPORTING DATA: Count of CT and Cardiac NM exams in prior 12 months: This patient has received 0 known CTs and 0 known cardiac nuclear medicine studies in the 12 months prior to the current study. COMPARISON: 1. MR ABDOMEN WO CON 03/26/2022 12:[address] ABDOMEN PELVIS WO CON 03/24/2022 5:53 AM FINDINGS: Lungs: Mild emphysema the lung bases. Coronary arteries: Severe coronary artery calcification. Diaphragm: Small hiatal hernia. Liver: Hepatic steatosis with mild hepatomegaly. No focal liver lesions. Gallbladder and bile ducts: Small layering gallstones in the gallbladder. No biliary ductal dilatation. Pancreas: 3.5 x 3.0 cm solid-appearing structure in the uncinate process of the pancreas abutting the 3rd portion of the duodenal with mild adjacent fat stranding extending anteriorly from the duodenal. The remainder of the pancreas appears normal. Spleen: Normal. No splenomegaly. Adrenal glands: Normal. No mass. Kidneys and ureters: Normal. No hydronephrosis. Stomach and bowel: Mild sigmoid colon diverticulosis. No dilated bowel loops. Appendix: Appendix is seen. Intraperitoneal space: Unremarkable. No free air. No significant fluid collection. Vasculature: Moderate atherosclerotic disease without aneurysm. Lymph nodes: Unremarkable. No enlarged lymph nodes. Urinary bladder: Unremarkable as visualized. Reproductive: Unremarkable as visualized. Bones/joints: Bilateral L4 pars defects with grade 2 anterolisthesis of L4 over L5. Mild L1-L2 and L2-L3 and severe L4-L5 degenerative disc disease. No lytic or blastic bone lesions. 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 Soft tissues: Unremarkable. IMPRESSION: 1. 3.5 x 3.0 cm solid-appearing structure in the uncinate process of the pancreas is intimately associated with the 3rd portion of the duodenal. This is highly concerning for a pancreatic malignancy with possible duodenal involvement. Dedicated multiphasic pancreatic CT or MRI is recommended. 2. Cholelithiasis. 3. Hepatic steatosis with hepatomegaly.
--- NOTE | 2023-06-16 18:23 | PC.NURSE ---
Dr Fenton on with [facility] radiology
--- NOTE | 2023-06-16 18:32 | PC.NURSE ---
placed call to [facility] for transfer, they are to call back, images powershared and disc being made.
[2023-06-16 18:51] LABS: Microscopic, Urine URINE MICROSCOPIC (MICROSCOPIC)
--- NOTE | 2023-06-16 18:51 | PC.NURSE ---
Dr Fenton speaking with [facility]
--- NOTE | 2023-06-16 18:56 | PC.NURSE ---
notified lab of lactic acid order
[2023-06-16 18:57] LABS: Appearance,Urine CLEAR (Clear); Bilirubin,Urine Negative (Negative); Blood, Urine TRACE-I (Negative); Color,Urine YELLOW (Yellow); Glucose,Urine (UA) Negative (Negative); Ketones,Urine Negative (Negative); Leukocyte Esterase,Urine Negative (Negative); Nitrate,Urine Negative (Negative); Protein,Urine Negative (Negative); Specific Gravity, Urine 1.015 (1.005-1.030); Urobilinogen,Urine 0.2 EU/dl (0.2)
--- NOTE | 2023-06-16 18:57 | PC.NURSE ---
Dr. Fenton report is going to call him back
[2023-06-16 19:09] LABS: Lactic Acid 2.1 mmol/L (0.7-2.1)
[2023-06-16 19:09] LABS: RBC,Urine Occasional #/hpf (0-3); Squamous Epithelial Cell,Urine Occasional #/hpf (0-5)
--- NOTE | 2023-06-16 19:14 | PC.NURSE ---
I rounded on the pt. pt is c/o pain and requests something to help. obtained a verbal order from for 50 mcg fentnyl IV once.
--- NOTE | 2023-06-16 20:00 | PC.NURSE ---
call to [facility] MD's about update on pt
[2023-06-16 20:35] LABS: Prothrombin Time > 90.0 seconds (10.1-12.5)
--- NOTE | 2023-06-16 20:39 | PC.NURSE ---
Dr Fenton notified of critical PT of 90
--- NOTE | 2023-06-16 20:46 | PC.NURSE ---
still waiting to hear back from [facility]
--- NOTE | 2023-06-16 20:51 | PC.NURSE ---
Solomon, setter automatic spinning lathe, updated the pt that we are waiting to hear back from [facility]
--- NOTE | 2023-06-16 20:53 | PC.NURSE ---
patient provided ice chips and notified waiting to speak to surgeon at for transfer.
--- NOTE | 2023-06-16 21:07 | PC.NURSE ---
called [facility] to check status of transfer with no changes, info relayed to CN and Doctor
--- NOTE | 2023-06-16 21:11 | PC.NURSE ---
Call placed to [facility], spoke to Shweta, there is a wait list, ED MD is willing to wait at this time. Awaiting a return call they are not sure if they can treat sx
[2023-06-16 21:21] LABS: Reflex Lactic Add Lactic Reflex
--- NOTE | 2023-06-16 21:28 | PC.NURSE ---
assisted patient to the restroom and placed him back on monitor. Family at bedside.
--- NOTE | 2023-06-16 21:49 | PC.NURSE ---
Call to [facility], spoke with Preeti,
--- NOTE | 2023-06-16 21:51 | PC.NURSE ---
ER Md on phone with and patient has been placed on the waitlist
[2023-06-16 21:57] LABS: Lactic Acid Follow Up (RFLX 1) 1.9 mmol/L (0.7-2.1)
--- NOTE | 2023-06-16 21:57 | PC.NURSE ---
RN called lab for INR test result since in computer it showed TNP. rn labor delivery stated the test could not be run b/c specimen was too lipemic and there is no way at this facility to get an INR result. RN offered rn labor delivery to come stick patient and she stated that would not make any difference and even if they run the specimen the reuslts would not be accurate due to the amount of trigylerides in blood. ER MD and charge nurse made aware
--- NOTE | 2023-06-16 22:25 | PC.NURSE ---
Dr. Fenton is speaking with the hospitalist at [facility] at this time.
--- NOTE | 2023-06-16 22:27 | PC.NURSE ---
PC to [facility], they will have liver team return call
--- NOTE | 2023-06-16 22:29 | PC.NURSE ---
Dr. Mendoza accepts the pt to [facility], however, he states it will more than likely be 06/17 before they have a bed available.
--- NOTE | 2023-06-16 22:41 | PC.NURSE ---
Dr. Fenton just talked to and Dr. Brown has accepted the pt. awaiting bed assignment.
--- NOTE | 2023-06-17 00:06 | PC.NURSE ---
Call from with bed assignment, Rm [id number]
--- NOTE | 2023-06-17 00:25 | PC.NURSE ---
Called report to Michelle SOSA at on at [phone] and answered all questions
--- NOTE | 2023-06-17 00:52 | PC.NURSE ---
spoke with patient and let her know about patient transfer and how to contact him.
[2023-06-17 00:54] VITALS: BP 101/60; PULSE 95; RESP 15; TEMP 36.7; O2SAT 96
--- NOTE | 2023-11-27 19:17 | PC.NURSE ---
RECORDS REVIEWED FOR [facility] AND REACTION.
== END 2023-06-17 00:55 | disposition short-term general hospital (02) ==
PROVIDERS: Emergency Provider Emergency Medicine; PCP Family Medicine
DX: R10.9 Unspecified abdominal pain (principal); R30.0 Dysuria; R11.0 Nausea
CPT/HCPCS: 36415; 74176; 80053; 81001; 83605; 83690; 85025; 85610; 87040; 87636; 93005; 96360; 96361; 96374; 96375; 99285; J0131; J0696; J2405

== ENCOUNTER 2023-11-27 09:41 | Emergency (ER) | payer BC, SELFPAY ==
[2023-11-27] VITALS (7 sets, daily range): BP systolic 128–146; BP diastolic 85–94; PULSE 94–107; RESP 18–20; TEMP 36.7–36.8; O2SAT 97–98; BMI 29.5
--- OUTSIDE RECORDS SUMMARY | 2023-11-27 09:52 | XMS_ITS | Continuity of Care Document ---
Author Name Unknown Organization [facility] Address [address] [place] [place] [phone] Phone Care Team Providers Care Bush Hog Operator Name Role Phone Nathan Carrasquillo MD Unavailable [...] for Gout prevention 100 MG - Active Plaquenil 200 mg tablet 1 tablet twice daily for arthritis - Active prednisone 5 mg tablet Take 4 tablets q.a.m. for 3 days, 3 tablets q.a.m. for 3 days, 2 tablets q.a.m. for 3 days, 1 tablet q.a.m. thereafter - Active colchicine 0.6 mg tablet 1 tab daily for arthritis - Active diltiazem CD 180 mg capsule,extended release 24 hr - Active Trelegy Ellipta 100 mcg-62.5 mcg-25 mcg powder for inhalation - Active omeprazole 40 mg capsule,delayed release - Active cyclobenzaprine 10 mg tablet - Active hydrochlorothiazide 25 mg tablet take 1 tablet by oral route every day 25 MG - Active testosterone 30 mg/actuation (1.5 mL) transderm solution metered pump apply 1 pump by topical route every day in the morning to each underarm for a total dose of 60 mg 30 MG - Active aspirin 81 mg chewable tablet chew 1 tablet by oral route every day 81 MG - Active losartan 100 mg tablet take 1 tablet by oral route every day 100 MG - Active Plavix 75 mg tablet take 1 tablet by oral route every day 75 MG - Active bisoprolol fumarate 5 mg tablet take 1 tablet by oral route every day 5 MG - Active Procedures Procedure Date EL-anti-CCP/2 TB AG RESPONSE T-CELL SUSP Rheumatoid Factor Johnnie RF/3 IgM 021 RF/3 IgG/IgA 25 Hydroxy Includes Fractions If Perform New Office Visit Level V Manual Appl Stress Pfrmd Phys Joint Radi Chest X-ray 2 Views Advance Directives Directive Yes / No Effective Date File Name No Information Encounters Encounter Description Practice Location Reason(s) For Visit Diagnoses Date Provider Providers Copied on Encounter [facility] .[facility], [address] [place] [address], [id number], [phone] [facility] No Information 2 Foreign Nathan . [address], [id number] . tel: [phone] [facility] [address] [facility] [address] [place] [address], [id number], tel:[phone] [facility] No Information 1 Foreign Nathan . [address] [place] [address], [id number] . tel: [phone] [facility] [address], [id number], tel:[phone] [facility] No Information 1 Foreign Nathan . [address], [place], [place], [id number] . tel: [phone] [facility] [address] [facility], [place], [place], [id number], [place] tel:[phone] [facility] No Information 1 Foreign Evans . [address], [place], [place], [id number] . tel: [phone] Referring Provider: Hue Gilman APRN, [address], [address]. tel:[phone] New Office Visit Level V [facility] [address] [place] [address], [id number], [place] tel:[phone] [facility] Positive rheumatoid factor (chief complaint)J oint Pain (chief complaint) Body mass index (BMI) 34.0-34.9, adultLumbago with sciaticaAlcohol abuseLFT ElevationRenal insufficiencyHyp onatremiaRA w/ rheumatoid factor of multiple sites w/o organ involvementCOPDC oronary Artery DiseaseElevated Uric Acid in BloodHigh Risk Medication Use 1 Foreign Evans . [address], [place], [place], [id number] . tel: [phone] Referring Provider: Hue Gilman APRN, [facility], [address]. tel:[phone] [facility] [address] [facility], [place], [place], [id number], [place] [phone] [facility] No Information 1 Foreign Evans . [address], [place], [place], [id number] . tel: [phone] Family History Family Member Type Diagnosis Age At Onset Mother Problem Diabetes mellitus Father Problem alzheimer Mother Problem colon cancer Mother Problem Heart Disease Immunizations Vaccine Date Status Comments SARS-COV-2 (COVID-19) vaccin e, vector non-replicating, recombinant spike protein-Ad26, preservative free, 0.5 mL (Ipsat Therapies) administered Source: Other Provid er Payers Payer name Insurance type Covered democrat [place] [id number] Social History Type Description Quantity Date Captured Comments Sex Male Smoking Status No Information Chief Complaint And Reason For Visit No Information Reason For Referral Reason For Referral No Information Plan Of Treatment Date Type Action Status Goal Lifestyle educat ion regarding diet completed Future Order: Radiology Order [place] X-ray; Limited (2 views) ([id number]), Ordered on: Ordered Future Order: Radiology Order Fo ot X-ray; Complete (3+ views) ([id number]), Ordered on: Ordered Future Order: Radiology Order Ch est X-ray; AP/Lat (2 views) ([id number]), Ordered on: Ordered Future Order: Lab Order [place] FERON - TB Gold IT Plus (Theratest) (TBGP), Ordered on: Ordered Future Order: Lab Order Cyclic Citrullinated Peptide-4P (Theratest) (CCP4P), Ordered on: Ordered Future Order: Lab Order Rheuma toid Factor/3 IgM, IgG, IgA (Theratest) (RF3), Ordered on: Ordered Future Order: Lab Order CBC With Differential/Platelet ([id number]), Ordered on: Ordered Future Order: Lab Order Comp. Me tabolic Panel (12) ([id number]), Ordered on: Ordered Future Order: Lab Order C-Reacti ve Protein, Quant ([id number]), Ordered on: Ordered Future Order: Lab Order Hepatiti s Panel (4) ([id number]), Ordered on: Ordered Future Order: Lab Order Sediment atsharyn Mari-Annelieseren ([id number]), Ordered on: Ordered Future Order: Lab Order Uric Aci d, Serum ([id number]), Ordered on: Ordered Future Order: Lab Order Vitamin B12 and Folate ([id number]), Ordered on: Ordered Future Order: Lab Order TSH ([id number]), Ordered on: Ordered Future Order: Lab Order 25-Hyd gina Vitamin D (Theratest) (VITADEI), Ordered on: Ordered History Of Present Illness Encounter Date Complaint History Of Prese nt Illness Positive rheumatoid factor Joint Pain Functional Status Date Functional Assessmen t No Information Instructions Date Instruction Additional Infor mation History exam and lab s are consistent with seropositive rheumatoid arthritisHigh disease activity with synovitis multiple joints hands ongoing for over 6 weeks with excessive morning stiffness. Unable to close the left hand.Will avoid methotrexate with his elevated LFTs and alcohol abuse historyHe reports cutting back significantly on alcohol intakeRecommend Plaquenil 200 mg b.i.d.. Prednisone taper sent to his pharmacyI discussed the side effects of hydroxychloroquine including but not limited to GI upset, rash, photosensitivity, Hematologic and liver abnormalities and ocular abnormalities and need for frequent eye exam for toxicity monitoring.Plaquenil handout providedI suspect we may need biologic therapy so will get Humira prior authorize after screening for hepatitis and tuberculosis with labs ordered today.X-rays today hands feet and chestFollow-up in 3 months Related to RA w/ rheumatoid factor of multiple sites w/o organ involvement We discussed biologi c agents at length. Risks and alternatives were discussed at length and the option of no treatment was also given. We discussed risks including but not limited to infections which can be unusual, severe, and deadly. When possible, these agents should be stopped immediately if infections occur. Unusual infection such as TB and fungal infections can occur. There may be an increased risk of lymphoma with these agents. Other risks can include a multiple sclerosis-like illness and worsening of heart failure. Infusion or injection reactions which can be deadly have been reported. Studies on have not been done so should be avoided while on these agents. Reactivation of a deadly brain virus and hepatitis viruses have been reported. Worsening of COPD has been seen with orencia. Elevated lipids, elevation in liver functions, and dangerous changes in blood counts have been seen with certain agents. Regular monitoring will be required. Related to High Risk Medication Use History of tobacco abuse Related to COPD Currently on colchic ine through PCPPossible gout although not crystal provenNo tophi or evidence of active gout on exam today Related to Elevated Uric Acid in Blood He reports he has cu t back on alcohol intake significantly Related to Alcohol abuse Status post coronary stent with Dr. Pimentel cardiology Related to Coronary Artery Disease Mild LFT elevation. Possibly related to his alcohol abuse history. He reports he has cut back on alcohol intake significantly Related to LFT Elevation Avoid NSAIDs Related to Renal insufficiency Lifestyle education regarding di et Related to Body mass index [BMI] 34.0-34.9, adult Assessments Type Assessment Date No Information Patient Care Teams Name Effective Dates (start - stop) Status Members No Information
--- NOTE | 2023-11-27 10:09 | US_ITS ---
FINAL REPORT CLINICAL HISTORY: abd pain/n/v, new jaundice COMPARISON: None FINDINGS: Sonographic images of the right upper quadrant were obtained. The pancreas is obscured. There is fatty infiltration of the liver. The gallbladder wall is normal in thickness. There is a small amount of sludge. There is no evidence of biliary ductal dilatation.The common duct measures 5 mm. Limited images of the right kidney are unremarkable. IMPRESSION: Fatty liver. Small amount of sludge in the gallbladder. Reviewed, Interpreted and Dictated by Sushil Ivey MD Transcribed by Eda Mendenhall Authenticated and [facility]
--- NOTE | 2023-11-27 10:10 | HMH.EDGENADL ---
Discharge Plan Disposition Patient Disposition: Xfer Short-Term Hosp Condition: Fair Chief Complaint: Abdominal Pain Prescriptions Prescriptions: No Action aspirin [Adult Low Dose Aspirin] 81 mg tablet,delayed release (DR/EC) 81 mg PO DAILY testosterone 30 mg/actuation (1.5 mL) solution in metered pump w/valdez 1 applic TD DAILY diltiazem HCl 180 mg capsule,extended release 24hr See Rx Instructions .ROUTE .COMPLEX Qty: 180 1RF Dose Instruction: TAKE 1 TABLET BY MOUTH TWICE DAILY Rx Instructions: TAKE 1 TABLET BY MOUTH TWICE DAILY clopidogrel 75 mg tablet See Rx Instructions .ROUTE .COMPLEX Qty: 90 1RF Dose Instruction: TAKE 1 TABLET BY MOUTH DAILY Rx Instructions: TAKE 1 TABLET BY MOUTH DAILY omeprazole 40 MG capsule,delayed release(DR/EC) 40 mg PO BID potassium chloride 20 MEQ tablet extended release 20 meq PO BID Qty: 60 2RF Referrals Follow up/Referrals: Salvador Alvarez MD [Primary Care Provider] - See instructions Clinical Impressions Clinical Impression: Jaundice, Alcohol abuse, Acute renal failure, Acute liver failure, Myalgia, Tick bite, Mass of pancreas Instructions Patient Instructions: DI for Acute Abdominal Pain Discharge ED Provider: Misa Louis General Adult HPI General Chief complaint: Abdominal Pain Stated complaint: poss liver issues, sent by [facility] Time Seen by Provider: 11/27/23 09:43 Mode of Arrival: Wheelchair Source of Information: Patient and Medical Record Limitations: No Limitations Description of Symptoms (Recalled from ER Triage Doc. by RN): Pt c/o upper abd pain and known gallbladder issues since last year. States he had an ABD MRI at and was told it was normal , however has told his he has sludge in his gallbladder. He reports nausea with vomiting that began this morning and his skin & sclera are jaundiced color. Denies any previous abd surgeries. History of Present Illness HPI narrative: This patient is a 58-year-old male with a history of hypertension, hyperlipidemia, CAD, chronic alcohol abuse, renal insufficiency, and pancreatic mass presenting to the emergency department from his primary care provider's office for evaluation with concern for jaundice. According to the patient, he was admitted to and then had testing done at afterwards back in August after being evaluated here in June of last year and diagnosed with a pancreatic mass and biliary outflow obstruction. He notes that he was not really told anything as a result of this testing, however on medical record review at , it looks like the patient had EUS in August with concern for a 18 mm bile duct in the setting of pancreatic lesion. Patient does not provide a good detailed history as far as the events of transpired since then, stating that he has been fine since then up until about a week ago. He notes that 1 week ago he noticed a tick in his suprapubic region, and it was tiny, about the size of a needle. He states that he found it because he was having a lot of burning there, and his looked with a flashlight. She removed it, however she was not able to get out the head. He notes that since then, he has had diffuse myalgias, general weakness, fatigue, nausea, and jaundice. He went to his primary care provider's office today, as he was concerned that he may have Lyme disease with the tick bite history. His PCP called me and told me that she was setting the patient up for evaluation given his significant degree of jaundice in the setting of this previously diagnosed pancreatic mass as well as his alcohol abuse history. She also notes that he has had issues with his gallbladder in the past but has never had it removed. Patient denies any new numbness, tingling, facial droop, chest pain, shortness of breath, rashes, or other concerns. Related Data Home Medications Medication Instructions Recorded Confirmed aspirin 81 mg tablet,delayed 81 mg PO DAILY [facility] 03/12/18 07/07/23 release (Adult Low Dose Aspirin) testosterone 30 mg/actuation (1.5 1 applic transdermal DAILY hormone 01/01/22 07/07/23 mL) transderm solution metered pump replacement omeprazole 40 mg capsule,delayed 40 mg PO BID acid reflux 03/25/22 07/07/23 release Previous Rx's Medication Instructions Recorded potassium chloride 20 mEq 20 meq PO BID Supplement #60 tabs 03/27/22 tablet,extended release diltiazem HCl 180 mg See Rx Instructions .Route 02/17/23 capsule,extended release 24 hr .COMPLEX #180 caps clopidogrel 75 mg tablet See Rx Instructions .Route 06/11/23 .COMPLEX #90 tabs Allergies Allergy/AdvReac Type Severity Reaction Status Date / Time atorvastatin AdvReac Severe Verified 07/07/23 08:45 [facility] Disclaimer: The information contained in this section may have been updated after the patient was seen, as this information can be updated by other users. Medical History Edema SOB (shortness of breath) on exertion Primary hypertension Diastolic dysfunction Ex-smoker COPD (chronic obstructive pulmonary disease) GERD (gastroesophageal reflux disease) HLD (hyperlipidemia) Abnormal stress test HHD (hypertensive heart disease) Social History Smoking Status: Current every day smoker tobacco type: cigarettes packs per day: 20 alcohol intake: current alcohol intake frequency: 3 or more drinks per day substance use type: denies use current occupational status: retired Travel in the last 8 weeks: None household members: spouse caffeine: No ROS Obtained: Yes All systems reviewed & no additional complaints except as documented Physical Exam General General appearance: alert and obese Comment: Jaundice, ill-appearing Head Head exam: atraumatic and normocephalic Eye Eye exam: Present PERRL, EOMI and scleral icterus ENT ENT exam: Present normal exam, normal oropharynx, mucous membranes moist and normal external ear exam Neck Neck exam: Present normal inspection, full ROM and trachea midline; Absent tenderness Chest Chest inspection: Present normal inspection and symmetric chest wall rise; Absent tenderness Respiratory Respiratory exam: Present normal lung sounds bilaterally; Absent respiratory distress, wheezes, stridor or accessory muscle use Cardiovascular Cardiovascular exam: Present regular rate and normal rhythm Abdominal Exam Abdominal exam: Present soft, distention and tenderness (Generalized, worse in the upper abdomen); Absent guarding, rebound or rigidity Extremities Exam Extremities exam: Present full ROM, tenderness (Tenderness to palpation all over the patient's bilateral upper and lower extremities and joints without obvious deformity or swelling) and normal capillary refill; Absent edema Back Exam Back exam: Present normal inspection and full ROM; Absent tenderness Neurological Exam Neurological exam: Present alert, oriented X3, CN II-XII intact and normal gait; Absent motor sensory deficit Psychiatric Psychiatric exam: Present normal affect and normal mood Skin Skin exam: Present warm and dry; Absent rash Medical Decision Making Medical Records Medical records reviewed: Yes I reviewed the patient's medical records. James Inquiry Pt receiving controlled substance: No Vital Signs: 11/27/23 09:43 11/27/23 11:00 11/27/23 11:30 Temperature 98.2 F Temperature Source Oral Pulse Rate 102 H 107 H Pulse Rate [Right] 106 H Respiratory Rate 20 Blood Pressure 134/92 H 144/94 H Blood Pressure [Right Arm] 128/92 H Blood Pressure Mean 106 114 Blood Pressure Mean [Right Arm] 104 Blood Pressure Source [Right Arm] Automatic Cuff 02 Sat by Pulse Oximetry 98 98 97 Oxygen Delivery Method Room Air 11/27/23 12:00 Temperature Temperature Source Pulse Rate 94 H Pulse Rate [Right] Respiratory Rate Blood Pressure 140/85 Blood Pressure [Right Arm] Blood Pressure Mean 103 Blood Pressure Mean [Right Arm] Blood Pressure Source [Right Arm] 02 Sat by Pulse Oximetry 97 Oxygen Delivery Method Lab Data Lab results reviewed: Yes I reviewed the patient's lab results. Lab Results 11/27/23 09:52: WBC 14.3 H, RBC 3.65 L, Hgb 12.7 L, Hct 38.8 L, MCV 106.3 H, MCH 34.9 H, MCHC 32.8, RDW 19.2 H, Plt Count 187, MPV 10.1, Neut % (Auto) 85.3 H, Lymph % (Auto) 8.7 L, Newberry % (Auto) 5.2, Eos % (Auto) 0.3, Baso % (Auto) 0.6, Neut # (Auto) 12.2 H, Lymph # (Auto) 1.3, Newberry # (Auto) 0.7, Eos # (Auto) 0.0, Baso # (Auto) 0.1, Total Counted 100, Neutrophils % (Manual) 87 H, Lymphocytes % (Manual) 6 L, Monocytes % (Manual) 7, Platelet Estimate Normal, Macrocytosis 1+, ESR 102 H, PT 11.8, INR 1.10, APTT 31.7 H, Sodium 133 L, Potassium 4.5, Chloride 104, Carbon Dioxide 9 L*, Anion Gap 24.5 H, BUN 69 H, Creatinine 7.40 H, Estimated Creat Clear 15, Estimated GFR 8 L*, Est GFR ( Amer) 9 L*, Glucose 77, Lactate 0.8, Calcium 9.2, Total Bilirubin 31.6 H* D, Direct Bilirubin 22.9 H, AST 4140 H*, ALT 738 H*, Alkaline Phosphatase 431 H, C-Reactive Protein 113.6 H, Total Protein 8.3 H, Albumin 3.8, Globulin 4.5 H, Albumin/Globulin Ratio 0.8 L, Lipase 445 H 11/27/23 09:52 11/27/23 09:52 Orders (Tests/Meds): ED MEDICATIONS Generic Name Dose Route Start Last Admin Trade Name Freq PRN Reason Stop Dose Admin Lactated Ringer's 1,000 mls @ 999 mls/hr 11/27/23 12:27 Lactated Ringer's 1000 Ml Bag IV 11/27/23 13:27 .Q1H1M ONE Discontinued Medications Generic Name Dose Route Start Last Admin Trade Name Freq PRN Reason Stop Dose Admin Lactated Ringer's 1,000 mls @ 999 mls/hr 11/27/23 10:10 11/27/23 10:24 Lactated Ringer's 1000 Ml Bag IV 11/27/23 11:10 999 mls/hr .Q1H1M ONE Administration Norepinephrine/Dextrose 8 mg in 250 mls @ 3.75 mls/hr 11/27/23 12:27 Norepinephrine 8mg/250ml-D5w Premix IV 12/27/23 12:26 .Q24H MALDONADO Protocol 2 MCG/MIN Ondansetron HCl 4 mg 11/27/23 10:10 11/27/23 10:24 Ondansetron 4mg/2ml Vial IV 11/27/23 10:11 4 mg ONCE ONE Administration ORDERS Category Date Time Status CT abdomen pelvis wo con Stat Cat Scan 11/27/23 10:29 Completed US abdomen limited Stat Exams 11/27/23 10:09 Completed Activated Partial Thrombo Time Stat Lab 11/27/23 09:52 Completed Bilirubin,Direct Stat Lab 11/27/23 09:52 Completed C-Reactive Protein Stat Lab 11/27/23 09:52 Completed Complete Blood Count Auto Diff Stat Lab 11/27/23 09:52 Completed Comprehensive Metabolic Panel Stat Lab 11/27/23 09:52 Completed Ehrilichia Detection PCR Routine Lab 11/27/23 11:15 Received Erythrocyte Sedimentation Rate Stat Lab 11/27/23 09:52 Completed Lactic Acid Stat Lab 11/27/23 09:52 Completed Lipase Stat Lab 11/27/23 09:52 Completed Lyme Ab, Modified 2-Tier Stat Lab 11/27/23 11:15 Received Lyme B. burgdorferi PCR Blood Stat Lab 11/27/23 11:15 Received Prothrombin Time INR Stat Lab 11/27/23 09:52 Completed Urinalysis and Microscopic Stat Lab 11/27/23 10:09 Ordered Blood Culture Stat Micro 11/27/23 11:15 Received ECG Data Tracing #1: I reviewed this ECG and interpreted as documented below: Normal sinus rhythm with a ventricular rate of [address] changes concerning for ischemia. Normal axis and intervals. ECG initial impression date: 11/27/23 ECG initial impression time: 11:08 Medical Decision Narrative: In summary, this patient is a 58-year-old male presenting to the Emergency Department for evaluation of myalgias, arthralgias, jaundice, abdominal pain, and nausea. Differential diagnoses considered include but are not limited to cholecystitis, choledocholithiasis, cholangitis, pancreatic mass causing outflow obstruction, cirrhosis, tickborne illness, sepsis. Ruling out the most morbid conditions drove assessment. On exam, the patient is jaundiced. He is resting comfortably with reassuring vital signs on telemetry aside from very mild sinus tachycardia. workup included CBC, CMP, lipase, lactic acid, ESR, CRP, direct bilirubin, PT, PTT, Ehrlichia detection, Lyme antibodies, Lyme PCR, urinalysis, blood culture, EKG, right upper quadrant ultrasound, and CT abdomen pelvis with IV contrast. He was given a bolus of IV fluids as well as IV Zofran. I independently interpreted the scan and ultrasound prior to the radiologist read and noted concerns for enlargement of his pancreatic mass. Please see their read for final interpretation. Labs were obtained that demonstrated acute renal failure with a GFR of approximately 8 and creatinine of 7.4. Patient also has mild hyponatremia with a sodium of 133, significantly elevated total bilirubin with a bilirubin of 31.6, direct bilirubin of 22.9, AST of 4100, and ALT of 738. INR is normal at 1.1. Potassium is normal at 4.5. Patient does not have any significant amount of ascites that would be amenable for bedside paracentesis to evaluate for possible SBP. MELD score at this time is high at 35 indicating 52.6% 3 month mortality. On reassessment, patient is resting comfortably with reassuring vital signs on cardiac telemetry. He states that he was told about the mass before, but he was told after further workup that everything was okay. Given this, that is why he did not have outpatient follow-up. On CT scan, his mass is larger and he has lymph nodes adjacent to it which are highly concerning for malignancy. Images were power shared with [facility], and had an interactive discussion they are with Dr. Mauricio who advised that they would accept the patient to [facility] for further evaluation and management. I feel this would be beneficial to the patient given that we do not have gastroenterology, surgical oncology, or nephrology here and he is critically ill requiring evaluation by the specialist. Ultimately, EMS transport was arranged, and the patient was transported in stable condition. Critical Care Critical Care Time Critical Care Time: No
--- NOTE | 2023-11-27 10:15 | PC.NURSE ---
Pt placed in a gown and then taken to u/s via wheelchair
[2023-11-27 10:17] LABS: Alanine Aminotransferase 738 U/L (12-78); Albumin Level 3.8 g/dl (3.5-5.0); Albumin/Globulin Ratio 0.8 (1.1-1.8); Alkaline Phosphatase 431 U/L (38-126); Anion Gap 24.5 mEq/L (5-15); Blood Urea Nitrogen 69 mg/dl (9-20); Calcium 9.2 mg/dl (8.4-10.2); Chloride 104 mmol/L (98-107); Globulin 4.5 g/dL (1.3-3.2); Glucose 77 mg/dl (74-100); Lipase 445 U/L (23-300); Potassium 4.5 mmoL/L (3.5-5.1); Sodium 133 mmol/L (136-145); Total Protein,Serum 8.3 g/dl (6.3-8.2)
[2023-11-27 10:23] LABS: Creatinine Clearance Estimated 15 mL/min (50-200); Estimated Glomerular Filt Rate 8 ml/min (>60); GFR (African American) 9 ML/MIN (>60)
[2023-11-27 10:24] LABS: C-Reactive Protein 113.6 mg/L (0-4)
[2023-11-27] MEDS: ONDANSETRON 4MG/2ML VIAL 4 MG IV (10:24)
[2023-11-27] MEDS: LACTATED RINGERS 1000ML 1,000 ML 999 ML IV ×2 (10:24→13:34)
[2023-11-27 10:26] LABS: Basophils # 0.1 K/mm3 (0-0.2); Basophils % 0.6 % (0.1-2.0); Bilirubin,Total 31.6 mg/dl (0.2-1.3); Eosinophils % 0.3 % (0.1-12.0); Hematocrit 38.8 % (42.0-52.0); Hemoglobin 12.7 g/dL (14.1-18.0); Lymphocytes # 1.3 K/mm3 (0.7-4.5); Lymphocytes % 8.7 % (10-50); Mean Corpuscular HGB Conc 32.8 g/dL (31.8-35.4); Mean Corpuscular Hemoglobin 34.9 pg (27.0-31.2); Mean Corpuscular Volume 106.3 fl (80-94); Mean Platelet Volume 10.1 fl (7.4-10.4); Monocytes # 0.7 K/mm3 (0.1-1.0); Monocytes % 5.2 % (1.7-9.3); Neutrophils # 12.2 K/mm3 (1.8-7.8); Neutrophils % 85.3 % (37.0-80.0); Platelet Count 187 K/mm3 (142-424); Red Blood Count 3.65 M/mm3 (4.60-6.20); Red Cell Distribution Width 19.2 % (11.5-17.5); White Blood Count 14.3 K/mm3 (4.8-10.8)
[2023-11-27 10:27] LABS: Carbon Dioxide 9 mmol/L (22.0-30.0)
[2023-11-27 10:28] LABS: Lactic Acid 0.8 mmol/L (0.7-2.1)
--- NOTE | 2023-11-27 10:29 | CT_ITS ---
FINAL REPORT TECHNIQUE: Axial images through the abdomen and pelvis were performed without contrast. This study was performed with techniques to keep radiation doses as low as reasonably achievable, (ALARA). Individualized dose reduction techniques using automated exposure control or adjustment of mA and/or kV according to the patient's size were employed. CLINICAL HISTORY: upper ABD pain/nausea/vomiting/jaundiced COMPARISON: 06/16/2023 FINDINGS: Abdomen: The lung bases are clear. There is diffuse fatty infiltration of the liver which is enlarged up to 23 cm in craniocaudal dimension. The gallbladder is present. There are multiple small gallstones in the neck of the gallbladder. The spleen is unremarkable. Again noted is a mass in the uncinate process of the pancreas now measuring 5.0 x 3.3 cm, significantly increased in size. There may be a few small lymph nodes adjacent to the mass measuring up to 11 mm in greatest dimension. The adrenal glands and kidneys are unremarkable. Pelvis: The urinary bladder is incompletely distended. The appendix is unremarkable. There is no pelvic mass or inflammation. There is grade 1-2 spondylolisthesis of L4 on L5 with bilateral L4 pars defects and high-grade bilateral neural foraminal narrowing. IMPRESSION: Significant interval increase in size of the mass in the uncinate process, again concerning for malignancy. There are now tiny adjacent lymph nodes. Consider biopsy. Small gallstones in the gallbladder. Enlarged fatty liver. Reviewed, Interpreted and Dictated by Sushil Ivey MD Transcribed by Eda Mendenhall Authenticated and [facility]
[2023-11-27 10:30] LABS: MANUAL DIFFERENTIAL MANUAL DIFFERENTIAL (MANUAL DIFF)
--- NOTE | 2023-11-27 10:31 | PC.NURSE ---
Dr. Louis notified of critical CO2, Creatinine, and total bili
[2023-11-27 10:32] LABS: Activated Partial Thrombo Time 31.7 seconds (22.8-30.6); Prothrombin Time 11.8 seconds (10.1-12.5)
[2023-11-27 10:49] LABS: Bilirubin,Direct 22.9 mg/dl (0.0-0.4)
[2023-11-27 10:59] LABS: Erythrocyte Sedimentation Rate 102 mm/hr (0-20)
[2023-11-27 11:01] LABS: Aspartate Amino Transferase 4140 U/L (17-59)
--- NOTE | 2023-11-27 11:05 | ECG_ITS ---
APPROVED REPORT Exam: Resting ECG HR:96 bpm ECG Measurements Heart Rate 96 AXES PA 163 P 86 QRSd 109 QRS 78 QT 362 T 42 QTc 415 Conclusion SINUS RHYTHM NORMAL ECG Electronically signed by : JYOTI TOURE, 11/27/2023 14:45:53
--- NOTE | 2023-11-27 11:07 | PC.NURSE ---
Per Dr. Louis, asked radiology to power-share ct & u/s to [facility]. Also asked for disc of images to be prepared.
[2023-11-27 12:09] LABS: Lymphocytes % 6 % (10-50); Macrocytosis 1+; Monocytes % 7 % (2-9); Neutrophils % 87 % (42-76); Platelet Estimate Normal; Total Cells Counted 100
--- NOTE | 2023-11-27 12:41 | PC.NURSE ---
Called [facility] to speak about this pt. while on the line had the Doctor and is speaking with DR Louis now
--- NOTE | 2023-11-27 13:06 | PC.NURSE ---
pt was accepted to [facility]. Nurse will be calling report
[2023-11-27 13:11] LABS: Microscopic, Urine URINE MICROSCOPIC (MICROSCOPIC)
[2023-11-27 13:14] LABS: Appearance,Urine CLOUDY (Clear); Blood, Urine 3+ (Negative); Color,Urine AMBER (Yellow); Glucose,Urine (UA) Negative (Negative); Ketones,Urine 2+ (Negative); Leukocyte Esterase,Urine Negative (Negative); Nitrate,Urine Negative (Negative); PH,Urine 6.5 (5.0-8.5); Protein,Urine 3+ (Negative); Specific Gravity, Urine 1.025 (1.005-1.030)
[2023-11-27 13:16] LABS: Bilirubin,Urine 3+ (Negative)
--- NOTE | 2023-11-27 13:16 | PC.NURSE ---
[facility] was [facility] for [facility] pt. EMS advised they would be on there way shortly
[2023-11-27 13:36] LABS: Amorphous Sediment,Urine 3+ /lpf; Bacteria,Urine 1+ /lpf; Squamous Epithelial Cell,Urine Occasional #/hpf (0-5); WBC,Urine Occasional #/hpf (0-3)
--- NOTE | 2023-11-27 13:38 | PC.NURSE ---
Report given to IAN Perez at [facility].
[2023-11-28 15:11] LABS: Lyme Ab CIA Negative (Negative)
[2023-11-29 13:28] LABS: Lyme B. burgdorferi PCR Blood Negative (Negative)
[2023-12-02 14:02] LABS: A. phagocytophilum,PCR Negative (Negative); Ehrlichia chaffeensis Negative (Negative)
== END 2023-11-27 13:39 | disposition short-term general hospital (02) ==
PROVIDERS: Emergency Provider Emergency Medicine; PCP Family Medicine
DX: K72.00 Acute and subacute hepatic failure without coma (principal); R10.10 Upper abdominal pain, unspecified; F10.188 Alcohol abuse with other alcohol-induced disorder; R11.2 Nausea with vomiting, unspecified; N17.9 Acute kidney failure, unspecified; K86.89 Other specified diseases of pancreas; S30.861A Insect bite (nonvenomous) of abdominal wall, initial encounter; I11.9 Hypertensive heart disease without heart failure; I25.10 Atherosclerotic heart disease of native coronary artery without angina pectoris; E78.5 Hyperlipidemia, unspecified; F17.210 Nicotine dependence, cigarettes, uncomplicated; J44.9 Chronic obstructive pulmonary disease, unspecified; K21.9 Gastro-esophageal reflux disease without esophagitis; W57.XXXA Bitten or stung by nonvenomous insect and other nonvenomous arthropods, initial encounter
CPT/HCPCS: 74176; 76705; 80053; 81001; 82248; 83605; 83690; 85007; 85025; 85610; 85651; 85730; 86140; 86618; 87040; 87476; 87798; 93005; 96361; 96374; 99285; J2405

== ENCOUNTER 2023-12-15 08:00 | Outpatient (CLI) | payer BC, SELFPAY ==
--- OUTSIDE RECORDS SUMMARY | 2023-12-15 08:05 | XMS_ITS | Continuity of Care Document ---
Author Name Unknown Organization [facility] Address [address] [place] [id number] Phone Care Team Providers Care Supervisor Hydrochloric Area Name Role Phone Nathan Carrasquillo MD Unavailable [...] Date Provider Providers Copied on Encounter [facility] .[facility], [address] [place] [address] [employer], [id number], [phone] [facility] No Information 2 Foreign Nathan . [address], [id number] . tel: [phone] [facility] [address] [employer] [facility] [address] [place] [address], [id number], tel:[phone] [facility] No Information 1 Foreign Nathan . [address] [place] [address], [id number] . tel: [phone] [facility] [address] [employer], [id number], tel:[phone] [facility] No Information 1 Foreign Nathan . [address], [place], [place], [id number] . tel: [phone] [facility] [address] [facility], [place], [place], [id number], [place] tel:[phone] [facility] No Information 1 Foreign Evans . [address], [place], [place], [id number] . tel: [phone] Referring Provider: Hue Gilman APRN, [address], [place], [address]. tel:[phone] New Office Visit Level V [facility] [address] [place] [address], [id number], [place] tel:[phone] [facility] Positive rheumatoid factor (chief complaint)J oint Pain (chief complaint) Body mass index (BMI) 34.0-34.9, adultLumbago with sciaticaAlcohol abuseLFT ElevationRenal insufficiencyHyp onatremiaRA w/ rheumatoid factor of multiple sites w/o organ involvementCOPDC oronary Artery DiseaseElevated Uric Acid in BloodHigh Risk Medication Use 1 Foreign Evans . [address], [place], [place], [id number] . tel: [phone] Referring Provider: Hue Gilman APRN, [facility], [place], [address]. tel:[phone] [facility] [address] [facility] [facility], [place], [place], [id number], [place] [phone] [facility] No Information 1 Foreign Evans . [address], [place], [place], [id number] . tel: [phone] Family History Family Member Type Diagnosis Age At Onset Mother Problem Diabetes mellitus Father Problem alzheimer Mother Problem colon cancer Mother Problem Heart Disease Immunizations Vaccine Date Status Comments SARS-COV-2 (COVID-19) vaccin e, vector non-replicating, recombinant spike protein-Ad26, preservative free, 0.5 mL (ZenoLink) administered Source: Other Provid er Payers Payer name Insurance type Covered libertarian ID P[place] [id number] Social History Type Description Quantity Date Captured Comments Sex Male Smoking Status No Information Chief Complaint And Reason For Visit No Information Reason For Referral Reason For Referral No Information Plan Of Treatment Date Type Action Status Goal Lifestyle educat ion regarding diet completed Future Order: Radiology Order [place] X-ray; Limited (2 views) ([id number]), Ordered on: Ordered Future Order: Radiology Order Fo ot X-ray; Complete (3+ views) ([id number]), Ordered on: Ordered Future Order: Radiology Order Ch est X-ray; AP/Lat (2 views) ([id number]), Ordered on: Ordered Future Order: Lab Order [place] FERON - TB Gold IT Plus (Theratest) (TBGP), Ordered on: Ordered Future Order: Lab Order Cyclic Citrullinated Peptide-4P (Theratest) (CCP4P), Ordered on: Ordered Future Order: Lab Order Rheuma toid Factor/3 IgM, IgG, IgA (Theratest) (RF3), Ordered on: Ordered Future Order: Lab Order CBC With Differential/Platelet ([id number]), Ordered on: Ordered Future Order: Lab Order Comp. Me tabolic Panel (12) ([id number]), Ordered on: Ordered Future Order: Lab Order C-Reacti ve Protein, Quant ([id number]), Ordered on: Ordered Future Order: Lab Order Hepatiti s Panel (4) ([id number]), Ordered on: Ordered Future Order: Lab Order Sediment atsharyn Mari-Annelieseren ([id number]), Ordered on: Ordered Future Order: Lab Order Uric Aci d, Serum ([id number]), Ordered on: Ordered Future Order: Lab Order Vitamin B12 and Folate ([id number]), Ordered on: Ordered Future Order: Lab Order [...]
[2023-12-15 08:19] LABS: Basophils # 0.1 K/mm3 (0-0.2); Basophils % 0.7 % (0.1-2.0); Eosinophils # 0.2 K/mm3 (0.0-0.4); Eosinophils % 2.6 % (0.1-12.0); Lymphocytes # 1.5 K/mm3 (0.7-4.5); Lymphocytes % 16.2 % (10-50); Mean Corpuscular HGB Conc 30.8 g/dL (31.8-35.4); Mean Corpuscular Hemoglobin 33.7 pg (27.0-31.2); Mean Corpuscular Volume 109.5 fl (80-94); Mean Platelet Volume 8.8 fl (7.4-10.4); Monocytes # 0.6 K/mm3 (0.1-1.0); Neutrophils # 6.7 K/mm3 (1.8-7.8); Neutrophils % 73.6 % (37.0-80.0); Platelet Count 607 K/mm3 (142-424); Red Blood Count 2.38 M/mm3 (4.60-6.20); Red Cell Distribution Width 15.7 % (11.5-17.5); White Blood Count 9.1 K/mm3 (4.8-10.8)
[2023-12-15 09:56] LABS: Chloride 112 mmol/L (98-107); Potassium 4.6 mmoL/L (3.5-5.1); Sodium 138 mmol/L (136-145)
[2023-12-15 09:58] LABS: Blood Urea Nitrogen 41 mg/dl (9-20); Estimated Glomerular Filt Rate 14 ml/min (>60); GFR (African American) 16 ML/MIN (>60)
[2023-12-15 09:59] LABS: Alanine Aminotransferase 105 U/L (12-78); Albumin Level 3.7 g/dl (3.5-5.0); Albumin/Globulin Ratio 1.2 (1.1-1.8); Alkaline Phosphatase 390 U/L (38-126); Anion Gap 14.6 mEq/L (5-15); Aspartate Amino Transferase 104 U/L (17-59); Bilirubin,Total 2.5 mg/dl (0.2-1.3); Calcium 8.9 mg/dl (8.4-10.2); Carbon Dioxide 16 mmol/L (22.0-30.0); Glucose 136 mg/dl (74-100); Magnesium 1.2 mg/dl (1.6-2.3); Phosphorous 3.8 mg/dl (2.5-4.5); Total Protein,Serum 6.7 g/dl (6.3-8.2)
== END 2023-12-15 23:59 | disposition home or self-care (01) ==
PROVIDERS: PCP Family Medicine; Visit Provider Student in an Organized Health Care Education/Training Program
DX: N17.9 Acute kidney failure, unspecified (principal)
CPT/HCPCS: 36415; 80053; 83735; 84100; 85025

== ENCOUNTER 2024-01-12 06:25 | Outpatient (CLI) | payer BC, SELFPAY ==
--- OUTSIDE RECORDS SUMMARY | 2024-01-12 06:28 | XMS_ITS | Continuity of Care Document ---
Author Name Unknown Organization [facility] Address [address] [place] [id number] Phone Care Team Providers Care Acid Supervisor Name Role Phone Nathan Carrasquillo MD Unavailable [...] Date Provider Providers Copied on Encounter [facility], [address] [place] [address], [id number], [phone] [facility] No Information 2 Foreign Nathan . [address], [id number] . tel: [phone] [facility] [place] [facility] [address] [place] [address], [id number], tel:[phone] [facility] No Information 1 Foreign Nathan . [address] [place] [address], [id number] . tel: [phone] [facility] [address], [id number], tel:[phone] [facility] No Information 1 Foreign Nathan . [address], [place], [place], [id number] . tel: [phone] [facility] .[facility] [address] [facility], [place], [place], [id number], [place] tel:[phone] [facility] No Information 1 Foreign Evans . [address], [place], [place], [id number] . tel: [phone] Referring Provider: Hue Gilman APRN, [address], [place], [address]. tel:[phone] New Office Visit Level V [facility] [address] [place] [address], [id number], [place] tel:[phone] [facility] Positive rheumatoid factor (chief complaint)J oint Pain (chief complaint) Body mass index (BMI) 34.0-34.9, adultLumbago with sciaticaAlcohol abuseLFT ElevationRenal insufficiencyHyp onatremiaRA w/ rheumatoid factor of multiple sites w/o organ involvementCOPDC oronary Artery DiseaseElevated Uric Acid in BloodHigh Risk Medication Use 1 Foreign Evans . [address], [place], [place], [id number] . tel: [phone] Referring Provider: Hue Gilman APRN, [facility], [place], [address]. tel:[phone] [facility] [address] [facility], [place], [place], [id number], [place] [phone] [facility] No Information 1 Foreign Evans . [address], [place], [place], [id number] . tel: [phone] Family History Family Member Type Diagnosis Age At Onset Mother Problem Diabetes mellitus Father Problem alzheimer Mother Problem colon cancer Mother Problem Heart Disease Immunizations Vaccine Date Status Comments SARS-COV-2 (COVID-19) vaccin e, vector non-replicating, recombinant spike protein-Ad26, preservative free, 0.5 mL (Apaja) administered Source: Other Provid er Payers Payer name Insurance type Covered alliance party ID P[place] [id number] Social History Type Description Quantity Date Captured Comments Sex Male Smoking Status No Information Chief Complaint And Reason For Visit No Information Reason For Referral Reason For Referral No Information Plan Of Treatment Date Type Action Status Goal Lifestyle educat ion regarding diet completed Future Order: Radiology Order [place] X-ray; Limited (2 views) ([id number]), Ordered on: Ordered Future Order: Radiology Order Fo ot X-ray; Complete (3+ views) ([id number]), Ordered on: Ordered Future Order: Radiology Order Ch est X-ray; AP/Lat (2 views) ([id number]), Ordered on: Ordered Future Order: Lab Order [place] FERON - TB Gold IT Plus (Theratest) (TBGP), Ordered on: Ordered Future Order: Lab Order Cyclic Citrullinated Peptide-4P (Theratest) (CCP4P), Ordered on: Ordered Future Order: Lab Order Rheuma toid Factor/3 IgM, IgG, IgA (Theratest) (RF3), Ordered on: Ordered Future Order: Lab Order CBC With Differential/Platelet ([id number]), Ordered on: Ordered Future Order: Lab Order Comp. Me tabolic Panel (12) ([id number]), Ordered on: Ordered Future Order: Lab Order C-Reacti ve Protein, Quant ([id number]), Ordered on: Ordered Future Order: Lab Order Hepatiti s Panel (4) ([id number]), Ordered on: Ordered Future Order: Lab Order Sediment atsharyn Mari-Annelieseren ([id number]), Ordered on: Ordered Future Order: Lab Order Uric Aci d, Serum ([id number]), Ordered on: Ordered Future Order: Lab Order Vitamin B12 and Folate ([id number]), Ordered on: Ordered Future Order: Lab Order [...]
--- NOTE | 2024-01-12 06:30 | NM_ITS ---
APPROVED REPORT Exam: Nuclear Stress Test Indication: SOB, Fatigue, CAD, HTN, High cholesterol, Former tobacco use, Family history Patient Location: Outpatient Stress Tech: Naila Gómez [place] Tech:Nanci Logan, ARRT, RT (R)(N) Ht: 6 ft 0 in Wt: 209 lbs HR: 81 bpm BP: 159/86 mmHg BSA: 2.17 m2 TID: 1.03 History: SOB, Fatigue, CAD, HTN, High cholesterol, Former tobacco use, Family history Procedure: Patient received 0.4 mg of intravenous Lexiscan, resting heart rate 81 bpm, resting blood pressure 159/86 mmHg, with Lexiscan maximum heart rate achieved was 106 bpm which is % of the maximum predicted heart rate and blood pressure was 165/89 mmHg. With Lexiscan, patient denied any complaint of chest pain. Cardiac Stress and Resting SPECT Images: Cardiac Stress and Resting SPECT images were obtained using technetium 99m Myoview 31.9 mCi stress and 10.66 mCi at rest. Resting and stress imaging in supine and prone positions demonstrate a large sized, moderate, predominantly fixed perfusion defect in the inferior LV wall. There is a region of reversibility towards the inferoapical region. Gated imaging demonstrates normal global LV systolic function. There is moderate hypokinesis of the basal to mid inferior LV wall. LVEF is calculated at 60%. Conclusion: Large sized, moderate, predominantly fixed perfusion defect in the inferior LV wall. There is a region of reversibility towards the inferoapical region. Findings are suggestive of partial reversible ischemia. Gated imaging demonstrates normal global LV systolic function. There is moderate hypokinesis of the basal to mid inferior LV wall. LVEF is calculated at 60%. Electronically signed by : Erika Nagy MD 01/13/2024 13:31:28
[2024-01-12] MEDS: ISOTOPE MYOVIEW (PER STUDY) 1 DOSE IV (08:49)
[2024-01-12] MEDS: SODIUM CHLORIDE 0.9% 10ML SYR (RAD ONLY) 10 ML IV ×2 (08:49)
[2024-01-12] MEDS: REGADENOSON 0.4MG/5ML SYRINGE 0.4 MG IV (08:49)
--- NOTE | 2024-01-12 08:56 | CA_ITS ---
APPROVED REPORT Exam: Pharmacologic Technologist: Naila Gan, Ht: 6 ft 0 in Wt: 210 lbs BSA: 2.18 m2 HR: 66 bpm BP: 159/86 mmHg Rhythm: NSR Medical History Medications: Omeprazole,,,,, CloPIdogrel,,,,, Magnesium OXIDE,,,,, Potassium Chloride ER,,,,, DilTiazem HCI,,,,, Testosterone/actuation,,,,, Stress Test Details Test: LEXISCAN Reason for pharmacologic stress test: physical limitation. HR Resting HR: 81 bpm Max Heart Rate (APMHR): 162 bpm Max HR Achieved: 106 bpm Target HR (85% APMHR): 138 bpm % of APMHR: 65 Recovery HR: 78 bpm BP Resting BP: 159.0/86.0 mmHg Max BP: 165.0/89.0 mmHg Recovery BP: 149.0/89.0 mmHg ECG Resting ECG: SR Stress ECG: No significant ST changes Arrhythmia: None Clinical Exercise duration: 04:09 min Highest Stage Achieved: Stress ECG Conclusion 1 min: SOA. Nausea. Flushing. 2 min: BOWEN. Nausea Symptoms: SOA. Nausea. Flushing. Headache, eventually resolved. Arrhythmias/Ectopy: None ST-T Changes: None Conclusion: Unremarkable Lexiscan test. Myoview images are reported separately. Test Summary REST . . . . . . . Resting REST 08:46 . . 81 . 159/ 86 . . Stage 1 01:00 . . 102 . . . . Stage 2 01:00 . . 94 . 165/ 89 . . Stage 3 01:00 . . 87 . 141/ 92 . . Stage 4 01:00 . . 77 . 144/ 88 . . Stage 4 01:09 . . 77 . 144/ 88 . Stop exercise at 04:09 RECOVERY 01:00 . . 91 . 144/ 88 . . RECOVERY 02:00 . . 76 . 162/ 95 . . RECOVERY 03:00 . . 83 . 149/ 89 . . RECOVERY 03:01 . . 83 . 149/ 89 . . Electronically signed by : Erika Nagy MD 01/13/2024 13:29:59
== END 2024-01-12 23:59 | disposition home or self-care (01) ==
LOC: RAD 06:26
PROVIDERS: PCP Family Medicine; Visit Provider Physician Assistant
DX: R06.02 Shortness of breath (principal); I11.9 Hypertensive heart disease without heart failure; I25.10 Atherosclerotic heart disease of native coronary artery without angina pectoris; E78.2 Mixed hyperlipidemia; F17.210 Nicotine dependence, cigarettes, uncomplicated; F10.10 Alcohol abuse, uncomplicated
CPT/HCPCS: 78452; 93017; 93018; A9502; J2785

== ENCOUNTER 2024-02-03 10:01 | Outpatient (CLI) | payer BC, SELFPAY ==
[2024-02-03 10:54] LABS: Basophils # 0.1 K/mm3 (0-0.2); Basophils % 1.1 % (0.1-2.0); Eosinophils # 0.1 K/mm3 (0.0-0.4); Eosinophils % 1.3 % (0.1-12.0); Hematocrit 44.9 % (42.0-52.0); Hemoglobin 14.4 g/dL (14.1-18.0); Lymphocytes % 29.8 % (10-50); Mean Corpuscular HGB Conc 32.1 g/dL (31.8-35.4); Mean Corpuscular Hemoglobin 35.2 pg (27.0-31.2); Mean Corpuscular Volume 109.6 fl (80-94); Mean Platelet Volume 7.9 fl (7.4-10.4); Monocytes # 0.6 K/mm3 (0.1-1.0); Monocytes % 8.6 % (1.7-9.3); Neutrophils % 59.2 % (37.0-80.0); Platelet Count 313 K/mm3 (142-424); Red Cell Distribution Width 16.1 % (11.5-17.5); White Blood Count 6.7 K/mm3 (4.8-10.8)
[2024-02-03 11:10] LABS: Alanine Aminotransferase 39 U/L (12-78); Albumin Level 4.6 g/dl (3.5-5.0); Alkaline Phosphatase 117 U/L (38-126); Anion Gap 10.9 mEq/L (5-15); Aspartate Amino Transferase 58 U/L (17-59); Bilirubin,Indirect 0.4 mg/dL (0.0-0.9); Bilirubin,Total 0.4 mg/dl (0.2-1.3); Bilirubin,Unconjugated 0.4 mg/dL (0.0-1.1); Blood Urea Nitrogen 13 mg/dl (9-20); Carbon Dioxide 25 mmol/L (22.0-30.0); Chloride 106 mmol/L (98-107); Chol/HDL Ratio 4.9 (1-3.5); Cholesterol 291 mg/dl (140-200); Estimated Glomerular Filt Rate 48 ml/min (>60); GFR (African American) 58 ML/MIN (>60); Glucose 103 mg/dl (74-100); HDL Cholesterol 59 mg/dl (40-60); Magnesium 1.8 mg/dl (1.6-2.3); Potassium 4.9 mmoL/L (3.5-5.1); Sodium 137 mmol/L (136-145); Total Protein,Serum 7.7 g/dl (6.3-8.2); Triglycerides 278 mg/dl (30-150); VLDL Cholesterol 56 mg/dL (0-40)
[2024-02-03 11:20] LABS: Direct LDL Cholesterol 181.84 mg/dL (100-129)
[2024-02-03 11:26] LABS: Free T4 (Free Thyroxine) 0.64 ng/dl (0.78-2.19)
[2024-02-04 10:40] LABS: Thyroid Stimulating Hormone 2.44 uIU/mL (0.465-4.68)
== END 2024-02-03 23:59 | disposition home or self-care (01) ==
LOC: LAB 10:01
PROVIDERS: PCP Family Medicine; Visit Provider Physician Assistant
DX: I20.89 Other forms of angina pectoris (principal); R94.39 Abnormal result of other cardiovascular function study; N17.9 Acute kidney failure, unspecified; Z87.891 Personal history of nicotine dependence
CPT/HCPCS: 36415; 80048; 80061; 80076; 83735; 84439; 84443; 85025

== ENCOUNTER 2024-03-18 17:07 | Observation (INO) | payer BC, SELFPAY ==
[2024-03-18] VITALS (9 sets, daily range): BP systolic 137–168; BP diastolic 84–104; PULSE 66–90; RESP 13–20; TEMP 36.6–37.1; O2SAT 94–97; BMI 28.5; BMI 29.2
--- NOTE | 2024-03-18 17:21 | CT_ITS ---
PROCEDURE INFORMATION: Exam: CT Abdomen And Pelvis Without Contrast Exam date and time: 03/18/2024 5:43 PM Age: 59 years old Clinical indication: Abdominal pain; Flank; Other: Bilateral; Additional info: Bilateral flank pain, dark urine TECHNIQUE: Imaging protocol: Computed tomography of the abdomen and pelvis without contrast. Radiation optimization: All CT scans at this facility use at least one of these dose optimization techniques: automated exposure control; mA and/or kV adjustment per patient size (includes targeted exams where dose is matched to clinical indication); or iterative reconstruction. COMPARISON: CT ABDOMEN PELVIS WO CON 11/27/2023 10:54 AM FINDINGS: Liver: Liver is moderately enlarged and diffusely fatty in appearance. No focal hepatic abnormality. Gallbladder and biliary ducts: Dependent density in the gallbladder suggests small layering gallstones. Gallbladder otherwise unremarkable. No significant biliary ductal dilation. Pancreas: Previously described mass lesion in the uncinate process of the pancreas is no longer apparent. There remains mild peripancreatic fatty stranding about the uncinate process. Pancreas is otherwise unremarkable. No significant pancreatic ductal dilation. Spleen: Normal. No splenomegaly. Adrenal glands: Normal. No mass. Kidneys and ureters: Normal. No hydronephrosis. Stomach and bowel: Mild sigmoid diverticulosis. No bowel wall thickening or evidence of bowel obstruction. Appendix: No evidence of appendicitis. Intraperitoneal space: Unremarkable. No free air. No significant fluid collection. Vasculature: Dense atherosclerotic calcification throughout the distal aorta and iliac arteries. No evidence of aneurysm. Lymph nodes: Unremarkable. No enlarged lymph nodes. Urinary bladder: Unremarkable as visualized. Reproductive: Unremarkable as visualized. Bones/joints: Bilateral spondylolysis and anterolisthesis of L4 noted. Severe degenerative disc changes of the L4-L5 disc level. Otherwise more mild degenerative changes throughout the lower spine. No vertebral body compression fracture. Soft tissues: Unremarkable. IMPRESSION: 1. Apparent interval resolution of previously described mass in the region uncinate process of the pancreas. Mild persistent peripancreatic fatty stranding noted in this area. 2. Enlarged, fatty liver 2. Chronic osseous and atherosclerotic changes as described.
--- NOTE | 2024-03-18 17:21 | CT_ITS ---
PROCEDURE INFORMATION: Exam: CT Lumbar Spine Without Contrast Exam date and time: 03/18/2024 5:40 PM Age: 59 years old Clinical indication: Low back pain; Additional info: Bilateral flank pain, dark urine TECHNIQUE: Imaging protocol: Computed tomography of the lumbar spine without contrast. Radiation optimization: All CT scans at this facility use at least one of these dose optimization techniques: automated exposure control; mA and/or kV adjustment per patient size (includes targeted exams where dose is matched to clinical indication); or iterative reconstruction. COMPARISON: CT ABDOMEN PELVIS WO CON 11/27/2023 10:54 AM FINDINGS: Bones/joints: Bilateral spondylolysis borderline grade 1-2 anterolisthesis of L4. Severe degenerative disc changes with marked disc space narrowing noted at the L4-L5 disc level. More mild degenerative changes throughout the remainder of the lumbar spine. No vertebral body compression or acute fracture. Partial sacralization of the L5 noted. Vasculature: Mild atherosclerotic calcification throughout the distal aorta and iliac arteries. No evidence of aneurysm. Soft tissues: Unremarkable. IMPRESSION: Significant chronic findings as noted. No acute abnormality evident
--- NOTE | 2024-03-18 17:25 | ED_ITS ---
Discharge Plan Disposition Patient Disposition: Admitted Condition: Good Clinical Impressions Clinical Impression: Rhabdomyolysis, Alcohol withdrawal, Transaminitis Discharge ED Provider: Misa Louis General Adult HPI General Chief complaint: Back Pain/Injury Stated complaint: Lower back pain,? kidney stone Time Seen by Provider: 03/18/24 17:13 Mode of Arrival: Ambulatory Source of Information: Patient Limitations: No Limitations Description of Symptoms (Recalled from ER Triage Doc. by RN): Patient states that around 3pm he started urinating brown urine. Also complains of lower back pain. States he has had this before with kidney failure, so when it happened he immediately came to the ER for evaluation. History of Present Illness HPI narrative: This patient is a 59-year-old male with a history of previous evaluation in the emergency department for liver injury and kidney injury and subsequent transfer to as well as hypertension, hyperlipidemia, CAD, GERD, COPD, and alcohol and tobacco use presented to the emergency department for evaluation with concern for bilateral flank pain and brown urine. Patient states that he had this before with kidney failure. He notes that his symptoms started today around 3:00 PM when he had gone inside after taking some vegetables and produce to his neighbor. On medical record review, I evaluated him here back in October and transferred him to for evaluation with concern for kidney and liver injury. There, he was found to be in rhabdomyolysis. He was treated at with diuretics and fluid resuscitation for his kidney injury. He was given NAC for his liver injury. Illicit they thought potentially it could have been statin induced myopathy. He states has been told multiple times that he has a pancreatic mass, but he has had ultrasound and MRCP that have not shown mass. I confirmed this by reviewing his prior records, but it looks like he was supposed to have another CT scan of his abdomen and pelvis and MRCP as an outpatient once improved. He notes that he is not been drinking, but on further questioning he states that his last drink was approximately a week ago. He notes that he gets the shakes with alcohol cessation, but no seizures or other withdrawal symptoms. Related Data Home Medications ?Medication ?Instructions ?Recorded ?Confirmed testosterone 30 mg/actuation (1.5 1 applic transdermal DAILY hormone 01/01/22 03/18/24 mL) transderm solution metered pump replacement omeprazole 40 mg capsule,delayed 40 mg PO BID acid reflux 03/25/22 03/18/24 release clopidogrel 75 mg tablet 75 mg PO DAILY 03/18/24 03/18/24 diltiazem HCl 180 mg 180 mg PO BID 03/18/24 03/18/24 capsule,extended release 24 hr Allergies Allergy/AdvReac Type Severity Reaction Status Date / Time atorvastatin AdvReac Severe Verified 02/26/24 08:57 isosorbide AdvReac Mild Headache Ver[facility] 02/26/24 09[facility] Dis[facility]: The information contained in this section may have been updated after the patient was seen, as this information can be updated by other users. Medical History Abnormal stress test Edema SOB (shortness of breath) on exertion Primary hypertension Diastolic dysfunction Ex-smoker COPD (chronic obstructive pulmonary disease) GERD (gastroesophageal reflux disease) HLD (hyperlipidemia) HHD (hypertensive heart disease) Surgical History H/O removal of cyst Family History (Updated 03/18/24 @ 21:03 by Helen Trimble RN) Father Cancer of heart Mother Lung cancer Colon cancer Liver cancer Mother No problems noted. Social History (Updated 03/18/24 @ 21:05 by Helen Trimble RN) Smoking Status: Former smoker tobacco type: cigarettes packs per day: 20 alcohol intake: current alcohol intake frequency: 3 or more drinks per day substance use type: denies use current occupational status: retired Travel in the last 8 weeks: None household members: spouse caffeine: No ROS Obtained: Yes All systems reviewed & no additional complaints except as documented Physical Exam General General appearance: alert, in no apparent distress and obese Comment: Uncomfortable appearing Head Head exam: atraumatic and normocephalic Eye Eye exam: Present normal appearance, PERRL and EOMI ENT ENT exam: Present normal exam, normal oropharynx, mucous membranes moist and normal external ear exam Neck Neck exam: Present normal inspection, full ROM and trachea midline; Absent tenderness Chest Chest inspection: Present normal inspection and symmetric chest wall rise; Absent tenderness Respiratory Respiratory exam: Present normal lung sounds bilaterally; Absent respiratory distress, wheezes, stridor or accessory muscle use Cardiovascular Cardiovascular exam: Present regular rate and normal rhythm Abdominal Exam Abdominal exam: Present soft; Absent distention, tenderness or guarding Extremities Exam Extremities exam: Present normal inspection, full ROM and normal capillary refill; Absent tenderness or edema Back Exam Back exam: Present normal inspection and full ROM; Absent tenderness Neurological Exam Neurological exam: Present alert, oriented X3, CN II-XII intact and normal gait; Absent motor sensory deficit Psychiatric Psychiatric exam: Present normal affect and normal mood Skin Skin exam: Present warm and dry Medical Decision Making Medical Records Medical records reviewed: Yes I reviewed the patient's medical records. James Inquiry Pt receiving controlled substance: No Vital Signs: 03/18/24 17:08 03/18/24 17:12 03/18/24 17:15 Temperature 98.2 F Temperature Source Oral Pulse Rate 88 80 Pulse Rate [Radial] 66 Respiratory Rate 16 16 18 Blood Pressure 155/101 H 168/104 H Blood Pressure [Right Arm] 168/104 H Blood Pressure Mean [Right Arm] 125 Blood Pressure Source Blood Pressure Source [Right Arm] Automatic Cuff Blood Pressure Position Blood Pressure Position [Right Arm] Sitting 02 Sat by Pulse Oximetry 96 96 96 Oxygen Delivery Method Room Air Room Air Room Air 03/18/24 17:31 03/18/24 18:01 03/18/24 19:00 Temperature Temperature Source Pulse Rate 75 81 74 Pulse Rate [Radial] Respiratory Rate 16 16 13 Blood Pressure 137/92 H 145/84 H 142/93 H Blood Pressure [Right Arm] Blood Pressure Mean [Right Arm] Blood Pressure Source Blood Pressure Source [Right Arm] Blood Pressure Position Blood Pressure Position [Right Arm] 02 Sat by Pulse Oximetry 95 94 L 96 Oxygen Delivery Method Room Air Room Air Room Air 03/18/24 19:59 Temperature 98.8 F Temperature Source Oral Pulse Rate 85 Pulse Rate [Radial] Respiratory Rate 20 Blood Pressure 157/90 H Blood Pressure [Right Arm] Blood Pressure Mean [Right Arm] Blood Pressure Source Automatic Cuff Blood Pressure Source [Right Arm] Blood Pressure Position Supine Blood Pressure Position [Right Arm] 02 Sat by Pulse Oximetry Oxygen Delivery Method Room Air Lab Data Lab results reviewed: Yes I reviewed the patient's lab results. Lab Results 03/18/24 17:17: WBC 6.7, RBC 4.42 L, Hgb 15.1, Hct 48.5, MCV 109.7 H, MCH 34.2 H , MCHC 31.1 L, RDW 16.1, Plt Count 162, MPV 9.2, Neut % (Auto) 67.6, Lymph % (Auto) 21.2, [place] % (Auto) 8.9, Eos % (Auto) 1.2, Baso % (Auto) 1.1, Neut # (Auto) 4.5, Lymph # (Auto) 1.4, [place] # (Auto) 0.6, Eos # (Auto) 0.1, Baso # (Auto) 0.1, PT 10.8, INR 0.96, APTT 28.0, Sodium 134 L, Potassium 4.3, Chloride 100, Carbon Dioxide 25, Anion Gap 13.3, BUN 13, Creatinine 1.50 H, Estimated Creat Clear 71, Estimated GFR 48 L, Est GFR ( Amer) 58 L, Glucose 90, Calcium 9.7, Phosphorus 3.9, Magnesium 2.0, Total Bilirubin 3.0 H, AST 267 H, A LT 144 H, Alkaline Phosphatase 126, Total Creatine Kinase 337 H, Total Protein 8.2, Albumin 4.8, Globulin 3.4 H, Albumin/Globulin Ratio 1.4, Lipase 293, A cetaminophen < 10 L, Plasma/Serum Alcohol < 10 03/18/24 17:21: VBG pH 7.41, VBG pCO2 37.0, VBG pO2 40.7 H, VBG HCO3 23.1, VBG Total CO2 24.3, VBG O2 Saturation 74.6 H, VBG Base Excess -1.4, VBG Lactic Acid 1.0 03/18/24 17:57: SARS-CoV-2 (PCR) Not detected, Influenza A Untype (PCR) Not detected, Influenza Type B (PCR) Not detected 03/18/24 18:33: Urine Color Yellow, Urine Appearance Clear, Urine pH 7.0, Ur Specific [place] 1.010, Urine Protein Trace, Urine Glucose (UA) Negative, Urine Ketones 1+, Urine Blood Negative, Urine Nitrate Negative, Urine Bilirubin Negative, Urine Urobilinogen 1.0, Ur Leukocyte Esterase Negative, Urine RBC Occasional, Urine WBC Occasional, Ur Squamous Epith Cells Occasional 03/18/24 17:17 03/18/24 17:17 Orders (Tests/Meds): ED MEDICATIONS Generic Name Dose Route Start Last Admin Trade Name Freq PRN Reason Stop Dose Admin Diazepam 10 mg 03/18/24 19:26 Diazepam 10mg/2ml Syringe IV 04/17/24 19:25 Q1HP PRN CIWA >16 Diazepam 5 mg 03/18/24 19:26 Diazepam 10mg/2ml Syringe IV 04/17/24 19:25 Q1HP PRN CIWA Score 8-15 Diazepam 5 mg 03/18/24 19:26 Diazepam 5mg Tablet PO 04/17/24 19:25 Q6HP PRN CIWA 2-7 Folic Acid 1 mg 03/19/24 09:00 Folic Acid 1mg Tablet PO 04/18/24 08:59 DAILY MALDONADO Hydromorphone HCl 1 mg 03/18/24 19:26 Hydromorphone 2mg/Ml Syringe IV 04/17/24 19:25 Q2HP PRN Severe Pain (7-10) Lactated Ringer's 1,000 mls @ 100 mls/hr 03/18/24 19:30 03/18/24 21:26 Lactated Ringer's 1000 Ml Bag IV 04/17/24 19:29 100 mls/hr .Q10H MALDONADO Administration Multivitamins 10 ml/ Thiamine 1,015 mls @ 125 mls/hr 03/19/24 09:00 HCl 100 mg/ Magnesium Sulfate IV 04/18/24 08:59 2 gm/ Lactated Ringer's DAILY MALDONADO Multivitamins 1 each 03/19/24 17:00 Multivitamin Tablet PO 04/18/24 16:59 1700 MALDONADO Nicotine 21 mg 03/18/24 19:26 Nicotine 21mg/24hr Patch TD 04/17/24 19:25 DAILYP PRN Nicotine Cravings Ondansetron HCl 4 mg 03/18/24 19:26 Ondansetron 4mg/2ml Vial IV 04/17/24 19:25 Q8HP PRN Nausea And Vomiting Thiamine HCl 100 mg 03/19/24 09:00 Thiamine 100mg Tablet PO 03/21/24 09:01 DAILY MALDONADO Discontinued Medications Generic Name Dose Route Start Last Admin Trade Name Freq PRN Reason Stop Dose Admin Hydromorphone HCl 0.5 mg 03/18/24 17:27 03/18/24 17:31 Hydromorphone 2mg/Ml Syringe IV 03/18/24 17:28 0.5 mg ONCE ONE Administration Lactated Ringer's 1,000 mls @ 999 mls/hr 03/18/24 17:21 03/18/24 17:36 Lactated Ringer's 1000 Ml Bag IV 03/18/24 18:21 999 mls/hr .Q1H1M ONE Administration Lactated Ringer's 1,000 mls @ 999 mls/hr 03/18/24 18:23 03/18/24 18:31 Lactated Ringer's 1000 Ml Bag IV 03/18/24 19:23 999 mls/hr .Q1H1M ONE Administration Morphine Sulfate 4 mg 03/18/24 17:24 03/18/24 17:27 Morphine 4mg/Ml Syringe IV 03/18/24 17:25 Not Given ONCE ONE Ondansetron HCl 4 mg 03/18/24 17:24 03/18/24 17:30 Ondansetron 4mg/2ml Vial IV 03/18/24 17:25 4 mg ONCE ONE Administration ORDERS Category Date Time Status CT abdomen pelvis wo con Stat Cat Scan 03/18/24 17:[address] lumbar spine wo con Stat Cat Scan 03/18/24 17:21 Completed Acetaminophen Stat Lab 03/18/24 17:17 Completed Activated Partial Thrombo Time Stat Lab 03/18/24 17:17 Completed CBC w/Auto Diff [Complete Blood Count Auto Diff] Stat Lab 03/18/24 17:17 Completed CK [Creatine Kinase] Stat Lab 03/18/24 17:17 Completed CMP [Comprehensive Metabolic Panel] Stat Lab 03/18/24 17:17 Completed Ethyl Alcohol Stat Lab 03/18/24 17:17 Completed Lipase Stat Lab 03/18/24 17:17 Completed MAG [Magnesium] Stat Lab 03/18/24 17:17 Completed PHOS [Phosphorous] Stat Lab 03/18/24 17:17 Completed Prothrombin Time INR Stat Lab 03/18/24 17:17 Completed Rapid PCR Covid and Flu A/B Stat Lab 03/18/24 17:57 Completed UA [Urinalysis and Microscopic] Stat Lab 03/18/24 18:33 Completed VBG [Venous Blood Gas] Stat RT 03/18/24 17:21 Completed Medical Decision Narrative: In summary, this patient is a 59-year-old male presenting to the Emergency Department for evaluation of back pain and dark urine. Differential diagnoses considered include but are not limited to MARIA INES, liver disease, rhabdomyolysis, ureterolithiasis, pyelonephritis, musculoskeletal injury, viral syndrome. Ruling out the most morbid conditions drove assessment. It should be noted patient's history includes alcohol abuse, hypertension, hyperlipidemia, GERD, CAD which may or may not be at goal therapy. This complicates all aspects of care by increasing patient's risk for morbidity. I reviewed patient's past medical records and noted his previous evaluation for similar issues and his admission at for liver and kidney failure as per HPI. On exam, the patient is lying in bed with hypertension but otherwise reassuring vitals. He is uncomfortable. Workup included lab evaluation to evaluate again for rhabdo, liver injury, kidney injury, and other infectious/metabolic derangements. Also obtained acetaminophen level and coags. I ordered CT scan of the abdomen and pelvis and lumbar spine without contrast. He was given a bolus of IV fluids. For his pain, he was given IV Dilaudid, as he states that the only thing he can take, and he was also given IV Zofran. I independently interpreted CT scan prior to the radiologist read and noted no obvious acute obstructive process. Please see their read for final interpretation. Per radiology read, his previous suspicious area of his pancreas has resolved. labs were obtained that demonstrated elevated CK in the 300s. He also has a mild transaminitis, AST greater than ALT. He does admit that he still been drinking on reassessment. Bilirubin is mildly elevated at 3. Creatinine is currently 1.5, which is significantly improved from his prior labs. Ultimately, I feel the patient is high risk for discharge given the last time he decompensated to renal failure and liver failure with rhabdomyolysis. I feel he benefit from admission for continued monitoring and fluid resuscitation. He also is scoring CIWA of 6 for mild alcohol withdrawal, so I feel he would benefit from monitoring of this to ensure that things do not worsen. I had an interactive discussion with Dr. Herrera who advised that we could admit the patient and start him on maintenance fluids and CIWA protocol. Patient was admitted in stable condition after all questions were answered Critical Care Critical Care Time Critical Care Time: No
[2024-03-18 17:30] LABS: VBG Base Excess -1.4 mmol/L (-2.4-2.3); VBG HCO3 23.1 mmol/L (23-30); VBG Oxygen Saturation 74.6 % (50-70); VBG PH 7.41 mmol/L (7.31-7.41); VBG PO2 40.7 mmol/L (28-40); VBG Total CO2 24.3 mmol/L (23-27)
[2024-03-18 17:30] LABS: Basophils # 0.1 K/mm3 (0-0.2); Basophils % 1.1 % (0.1-2.0); Eosinophils # 0.1 K/mm3 (0.0-0.4); Eosinophils % 1.2 % (0.1-12.0); Hematocrit 48.5 % (42.0-52.0); Hemoglobin 15.1 g/dL (14.1-18.0); Lymphocytes # 1.4 K/mm3 (0.7-4.5); Lymphocytes % 21.2 % (10-50); Mean Corpuscular HGB Conc 31.1 g/dL (31.8-35.4); Mean Corpuscular Hemoglobin 34.2 pg (27.0-31.2); Mean Corpuscular Volume 109.7 fl (80-94); Mean Platelet Volume 9.2 fl (7.4-10.4); Monocytes # 0.6 K/mm3 (0.1-1.0); Monocytes % 8.9 % (1.7-9.3); Neutrophils # 4.5 K/mm3 (1.8-7.8); Neutrophils % 67.6 % (37.0-80.0); Platelet Count 162 K/mm3 (142-424); Red Blood Count 4.42 M/mm3 (4.60-6.20); Red Cell Distribution Width 16.1 % (11.5-17.5); White Blood Count 6.7 K/mm3 (4.8-10.8)
[2024-03-18] MEDS: ONDANSETRON 4MG/2ML VIAL 4 MG IV (17:30)
[2024-03-18 17:31] LABS: Albumin Level 4.8 g/dl (3.5-5.0); Chloride 100 mmol/L (98-107); Potassium 4.3 mmoL/L (3.5-5.1); Sodium 134 mmol/L (136-145)
[2024-03-18] MEDS: HYDROMORPHONE 2MG/ML SYRINGE 0.5 MG IV (17:31)
[2024-03-18 17:33] LABS: Alanine Aminotransferase 144 U/L (12-78); Aspartate Amino Transferase 267 U/L (17-59); Blood Urea Nitrogen 13 mg/dl (9-20); Creatinine Clearance Estimated 71 mL/min (50-200); Estimated Glomerular Filt Rate 48 ml/min (>60); GFR (African American) 58 ML/MIN (>60)
[2024-03-18 17:34] LABS: Albumin/Globulin Ratio 1.4 (1.1-1.8); Alkaline Phosphatase 126 U/L (38-126); Anion Gap 13.3 mEq/L (5-15); Calcium 9.7 mg/dl (8.4-10.2); Carbon Dioxide 25 mmol/L (22.0-30.0); Creatine Kinase 337 U/L (55-170); Globulin 3.4 g/dL (1.3-3.2); Glucose 90 mg/dl (74-100); Lipase 293 U/L (23-300); Phosphorous 3.9 mg/dl (2.5-4.5); Total Protein,Serum 8.2 g/dl (6.3-8.2)
--- NOTE | 2024-03-18 17:35 | PC.NURSE ---
Pt gone to RAD via wheelchair
[2024-03-18] MEDS: LACTATED RINGERS 1000ML 1,000 ML 999 ML IV ×2 (17:36→18:31)
[2024-03-18 17:39] LABS: INR 0.96 (0.9-1.1); Prothrombin Time 10.8 seconds (10.1-12.5)
[2024-03-18 17:54] LABS: Acetaminophen < 10 ug/ml (10-30)
--- NOTE | 2024-03-18 17:56 | PC.NURSE ---
CIWA assessment complete MD Louis notified of results.
[2024-03-18 18:00] LABS: Coronavirus 19, PCR Not Detected (NotDetected); Influenza A, PCR Not Detected (NotDetected); Influenza B, PCR Not Detected (NotDetected)
[2024-03-18 18:16] LABS: Ethyl Alcohol < 10 mg/dl (0-10)
[2024-03-18 18:37] LABS: Microscopic, Urine URINE MICROSCOPIC (MICROSCOPIC)
[2024-03-18 18:43] LABS: Appearance,Urine CLEAR (Clear); Blood, Urine Negative (Negative); Color,Urine YELLOW (Yellow); Glucose,Urine (UA) Negative (Negative); Ketones,Urine 1+ (Negative); Leukocyte Esterase,Urine Negative (Negative); Nitrate,Urine Negative (Negative); Protein,Urine TRACE (Negative)
--- NOTE | 2024-03-18 18:53 | PC.NURSE ---
Dr. Louis at BS to update pt on current results and POC
[2024-03-18 19:01] LABS: Bilirubin,Urine Negative (Negative)
[2024-03-18 19:02] LABS: RBC,Urine Occasional #/hpf (0-3); Squamous Epithelial Cell,Urine Occasional #/hpf (0-5); WBC,Urine Occasional #/hpf (0-3)
--- NOTE | 2024-03-18 19:23 | PC.NURSE ---
Paged early childhood education specialist Dr.Mulberry ly LIAO at this time
--- NOTE | 2024-03-18 19:30 | PC.NURSE ---
warehouse distribution specialist notified of need for bed
--- NOTE | 2024-03-18 19:39 | PC.NURSE ---
Report given to IAN Cervantes on second floor at this time
--- NOTE | 2024-03-18 20:02 | PC.NURSE ---
Patient arrived to floor via wheelchair from ED at 20:00.
[2024-03-18] MEDS: LACTATED RINGERS 1000ML 1,000 ML 100 ML IV (21:26)
[2024-03-19] VITALS (7 sets, daily range): BP systolic 145–166; BP diastolic 88–104; PULSE 70–83; RESP 16–20; TEMP 36.4–36.7; O2SAT 94–96; BMI 29.2
[2024-03-19] MEDS: HYDROMORPHONE 2MG/ML SYRINGE 1 MG IV (00:14)
--- NOTE | 2024-03-19 05:51 | PC.NURSE ---
Mr Aguilar was newly admitted last night for rhabdomyolysis and alcohol withdrawal. Mr Aguilar has a medical history of atypical angina, COPD, cirrhosis, HLD, GERD, and acute renal and liver failure. Patient has tolerated room air well this shift and his lungs were soft but clear upon auscultation. He has remained normal sinus rhythm on telemetry. He is alert and oriented x4; CIWA scores were 6 in the ER, 5, and 2 this shift. Seizure pads are in place. Patient reported having severe bilateral flank pain, feet pain, and tea-colored urine. Patient was given Dilautid per MAR to treat his pain; patient reported satisfactory relief. Patient was given a urinal to observe output and urine appearance; I myself emptied a total of 600mL of urine this shift. His urine was observed to be clear and mary in color; no odor was noted. Patient has not reported having any shortness of breath and tolerates ambulation in room well. Patient reported he vomited once this shift after drinking a Pepsi at bedtime. Patient was offered Zofran but declined at the time. Patient requested to have a coffee this morning (around 05:00). LR has been infusing at 100mL/hr this shift. Patient is sitting on the side of the bed watching TV at this time. Patient does not have any further complaints. Med rec was completed with admission. Call light within reach.
--- NOTE | 2024-03-19 07:50 | HMH.PHAINT1 ---
Pharmacy Intervention Comments: home medication list verified using list from outpatient pharmacy and cardiology office
[2024-03-19] MEDS: ONDANSETRON 4MG/2ML VIAL 4 MG IV (07:56)
[2024-03-19] MEDS: THIAMINE 100MG TABLET 100 MG PO (07:56)
[2024-03-19] MEDS: FOLIC ACID 1MG TABLET 1 MG PO (07:56)
[2024-03-19] MEDS: diazePAM 5MG TABLET 5 MG PO ×2 (07:56→20:48)
--- NOTE | 2024-03-19 08:12 | EXP.HP ---
History of Present Illness *Admission Date: 03/18/24 *Reason for visit:: dark urine *History of present illness: This patient is a 59-year-old male with a history of previous evaluation in the emergency department for liver injury and kidney injury and subsequent transfer to as well as hypertension, hyperlipidemia, CAD, GERD, COPD, and alcohol and tobacco use presented to the emergency department for evaluation with concern for bilateral flank pain and brown urine. Patient states that he had this before with kidney failure. He notes that his symptoms started today around 3:00 PM when he had gone inside after taking some vegetables and produce to his neighbor. On medical record review, I evaluated him here back in October and transferred him to for evaluation with concern for kidney and liver injury. There, he was found to be in rhabdomyolysis. He was treated at with diuretics and fluid resuscitation for his kidney injury. He was given NAC for his liver injury. Illicit they thought potentially it could have been statin induced myopathy. He states has been told multiple times that he has a pancreatic mass, but he has had ultrasound and MRCP that have not shown mass. I confirmed this by reviewing his prior records, but it looks like he was supposed to have another CT scan of his abdomen and pelvis and MRCP as an outpatient once improved. He notes that he has not been drinking, but on further questioning he states that his last drink was approximately a week ago. He notes that he gets the shakes with alcohol cessation, but no seizures or other withdrawal symptoms. (above as per ER physician) Furthe to above history, the patient states he began feeling bad on Friday. He felt like he was having a gallbladder attack. He was told at he had a bad gallbladder and stones and that it would need to come out eventually. He began vomiting on Friday and feels he got dehydrated. He was then outside in the heat on and admits he was not drinking enough. He felt faint when he took the vegetables to his neighbor and began drinking water. When he noticed his urine was getting dark, he came straight to the ER. He had to have some pain medication last night and zofran. He vomited once this am after drinking a pepsi, but has been able to eat and kept that down. He is scheduled to have a heart cath on Friday as well. He was also told at that he did not have a pancreatic mass but rather fat around the pancreas. PFSH PFSH Disclaimer: The information contained in this section may have been updated after the patient was seen, as this information can be updated by other users. Medical History (Updated 03/19/24 @ 08:49 by GAURAV Roldan) Alcohol abuse Hypertriglyceridemia Coronary artery disease Cirrhosis Abnormal nuclear cardiac imaging test Rhabdomyolysis Gallstones Transaminitis Hyperuricemia Hepatic steatosis Rheumatoid factor positive Abnormal stress test Edema SOB (shortness of breath) on exertion Primary hypertension Diastolic dysfunction Ex-smoker COPD (chronic obstructive pulmonary disease) GERD (gastroesophageal reflux disease) HLD (hyperlipidemia) HHD (hypertensive heart disease) Surgical History H/O removal of cyst Family History Liver cancer Mother Colon cancer Mother Cancer of heart Father Lung cancer Mother Social History Smoking Status: Former smoker tobacco type: cigarettes packs per day: 20 alcohol intake: current alcohol intake frequency: 3 or more drinks per day substance use type: denies use current occupational status: retired Travel in the last 8 weeks: None household members: spouse caffeine: No Review of Systems Constitutional Constitutional: Reports body ache(s), Reports chills, Reports fatigue, Denies fever(s), Reports headache(s), Reports poor appetite and Reports weakness Eyes Eyes: Denies blurry vision and Denies diplopia ENT Ears, Nose, Mouth, and Throat: Reports headache(s), Reports nasal congestion, Reports sore throat and Reports vertigo *Cardiovascular Cardiovascular: Reports chest pain and Reports dyspnea *Respiratory Respiratory: Reports cough and Reports dyspnea *Gastrointestinal Gastrointestinal: Reports abdominal pain, Reports loose stools, Reports nausea and Reports vomiting *Genitourinary Genitourinary: Denies dysuria, Denies hematuria, Reports oliguria and Reports other (Dark urine) *Musculoskeletal Musculoskeletal: Reports back pain and Reports myalgias *Neurologic Neurologic: Reports headache(s), Reports vertigo and Reports weakness Endocrine Endocrine: Reports fatigue Meds Home Medications and Allergies Home Medications ?Medication ?Instructions ?Recorded ?Confirmed ?Type testosterone 30 mg/actuation (1.5 2 pump topical DAILY hormone 01/01/22 03/19/24 History mL) transderm solution metered pump replacement omeprazole 40 mg capsule,delayed 40 mg PO BID 03/25/22 03/18/24 History release clopidogrel 75 mg tablet 75 mg PO DAILY 03/18/24 03/18/24 History diltiazem HCl 180 mg 180 mg PO BID 03/18/24 03/18/24 History capsule,extended release 24 hr magnesium oxide 400 mg (241.3 mg 800 mg PO BID 03/19/24 03/19/24 History magnesium) tablet metoprolol succinate 50 mg 75 mg PO DAILY 03/19/24 03/19/24 History tablet,extended release 24 hr rosuvastatin 20 mg tablet 20 mg PO HS 03/19/24 03/19/24 History New Prescriptions to Start Prescriptions: Allergies Allergy/AdvReac Type Severity Reaction Status Date / Time atorvastatin AdvReac Severe Verified 02/26/24 08:57 isosorbide AdvReac Mild Headache Verified 02/26/24 09:22 Exam Data for Last 24 hours Vital signs and Labs for Last 24 Hours: Temp Pulse Resp BP Pulse Ox O2 Del Method 97.9 F 77 20 149/93 H 95 Room Air 03/19/24 07:51 03/19/24 07:51 03/19/24 07:51 03/19/24 07:51 03/19/24 07:51 03/19/24 07:51 Laboratory Results - last 24 hr 03/18/24 17:17: WBC 6.7, RBC 4.42 L, Hgb 15.1, Hct 48.5, MCV 109.7 H, MCH 34.2 H, MCHC 31.1 L, RDW 16.1, Plt Count 162, MPV 9.2, Neut % (Auto) 67.6, Lymph % (Auto) 21.2, [place] % (Auto) 8.9, Eos % (Auto) 1.2, Baso % (Auto) 1.1, Neut # (Auto) 4.5, Lymph # (Auto) 1.4, [place] # (Auto) 0.6, Eos # (Auto) 0.1, Baso # (Auto) 0.1, PT 10.8, INR 0.96, APTT 28.0, Sodium 134 L, Potassium 4.3, Chloride 100, Carbon Dioxide 25, Anion Gap 13.3, BUN 13, Creatinine 1.50 H, Estimated Creat Clear 71, Estimated GFR 48 L, Est GFR ( Amer) 58 L, Glucose 90, Calcium 9.7, Phosphorus 3.9, Magnesium 2.0, Total Bilirubin 3.0 H, AST 267 H, ALT 144 H, Alkaline Phosphatase 126, Total Creatine Kinase 337 H, Total Protein 8.2, Albumin 4.8, Globulin 3.4 H, Albumin/Globulin Ratio 1.4, Lipase 293, Acetaminophen < 10 L, Plasma/Serum Alcohol < 10 03/18/24 17:21: VBG pH 7.41, VBG pCO2 37.0, VBG pO2 40.7 H, VBG HCO3 23.1, VBG Total CO2 24.3, VBG O2 Saturation 74.6 H, VBG Base Excess -1.4, VBG Lactic Acid 1.0 03/18/24 17:57: SARS-CoV-2 (PCR) Not detected, Influenza A Untype (PCR) Not detected, Influenza Type B (PCR) Not detected 03/18/24 18:33: Urine Color Yellow, Urine Appearance Clear, Urine pH 7.0, Ur Specific [place] 1.010, Urine Protein Trace, Urine Glucose (UA) Negative, Urine Ketones 1+, Urine Blood Negative, Urine Nitrate Negative, Urine Bilirubin Negative, Urine Urobilinogen 1.0, Ur Leukocyte Esterase Negative, Urine RBC Occasional, Urine WBC Occasional, Ur Squamous Epith Cells Occasional I & O for Last 24 hours: Intake & Output 03/16/24 03/17/24 03/18/24 03/19/24 11:59 11:59 11:59 11:59 Intake Total 248 / 248 Output Total 600 / 600 Balance -352 / -352 Weight 216 lb 0.002 oz Constitutional Constitutional: no acute distress *Routine HEENT Exam Head: Present normocephalic and atraumatic Eye: Present EOMI, PERRL and conjunctival icterus ENT: Present mucous membranes dry *Routine Neck Exam Neck: Present supple and full ROM *Routine Respiratory Exam Respiratory: Present decreased breath sounds and wheezes (faint) *Routine Cardiovascular Exam Cardiovascular: Present RRR *Routine Abdominal Exam Abdominal: Present soft, normoactive bowel sounds and tenderness (mild diffuse tenderness); Absent rebound or guarding *Routine Rectal Exam Rectal:: deferred *Routine Genitalia Exam Genitalia:: deferred *Routine Extremities Exam Extremities: Absent cyanosis, clubbing or edema *Routine Skin Exam Skin: Present intact and jaundice; Absent erythema *Routine Neurological Exam Neurological: Present alert and oriented X3 H&P: Result Impressions Abdominal/Pelvic CT 1. Apparent interval resolution of previously described mass in the region uncinate process of the pancreas. Mild persistent peripancreatic fatty stranding noted in this area. 2. Enlarged, fatty liver 2. Chronic osseous and atherosclerotic changes as described. Lumbar Spine CT Significant chronic findings as noted. No acute abnormality evident Assessment and Plan *Assessment and plan (1) Nausea and vomiting: Status: Acute Category: Medical Code(s): R11.2 - Nausea with vomiting, unspecified (2) Dehydration: Status: Acute Category: Medical Code(s): E86.0 - Dehydration (3) Transaminitis: Status: Acute Category: Medical Code(s): R74.01 - Elevation of levels of liver transaminase levels (4) Rhabdomyolysis: Status: Acute Category: Medical Code(s): M62.82 - Rhabdomyolysis (5) Acute on chronic renal insufficiency: Status: Acute Category: Medical Code(s): N28.9 - Disorder of kidney and ureter, unspecified; N18.9 - Chronic kidney disease, unspecified (6) Abnormal nuclear cardiac imaging test: Status: Acute Category: Medical Code(s): R93.1 - Abnormal findings on diagnostic imaging of heart and coronary circulation (7) Atypical angina: Status: Acute Category: Medical Code(s): I20.89 - Other forms of angina pectoris (8) Gallstones: Status: Acute Category: Medical Code(s): K80.20 - Calculus of gallbladder without cholecystitis without obstruction (9) Alcohol abuse: Status: Acute Category: Social Hx Code(s): F10.10 - Alcohol abuse, uncomplicated (10) Primary hypertension: Status: Chronic Category: Medical Code(s): I10 - Essential (primary) hypertension (11) COPD (chronic obstructive pulmonary disease): Status: Chronic Qualifiers: COPD type: unspecified COPD Qualified Code(s): J44.9 - Chronic obstructive pulmonary disease, unspecified Category: Medical Code(s): J44.9 - Chronic obstructive pulmonary disease, unspecified (12) GERD (gastroesophageal reflux disease): Status: Chronic Qualifiers: Esophagitis presence: esophagitis presence not specified Qualified Code(s): K21.9 - Gastro-esophageal reflux disease without esophagitis Category: Medical Code(s): K21.9 - Gastro-esophageal reflux disease without esophagitis (13) HLD (hyperlipidemia): Status: Chronic Qualifiers: Hyperlipidemia type: mixed hyperlipidemia Qualified Code(s): E78.2 - Mixed hyperlipidemia Category: Medical Code(s): E78.5 - Hyperlipidemia, unspecified (14) Coronary artery disease: Status: Chronic Qualifiers: Associated angina: without angina Coronary Disease-Associated Artery/Lesion type: [place] artery [place] vs. transplanted heart: [place] heart Qualified Code(s): I25.10 - Atherosclerotic heart disease of [place] coronary artery without angina pectoris Category: Medical Code(s): I25.10 - Atherosclerotic heart disease of [place] coronary artery without angina pectoris Plan Will recheck labs this am after receiving IVF's. Patient does have gallstones which could be causing these intermittent elevations in LFT's and bilirubin along with the nausea and vomiting. He states he gets attacks off and on. He will likely need this removed, but is scheduled for a heart cath on Friday and cardiology would like to proceed with this if possible. Will discuss further care with Dr. Herrera. Dr. Herrera entry - Saw patient, will hydrate and monitor labs, alcohol withdrawal precautions.
[2024-03-19] MEDS: MVI, ADULT NO.1 WITH VIT K 10 ML, THIAMINE HCL 100 MG, MAGNESIUM SULFATE 2 GM in LACTAT... 125 ML IV (08:38)
[2024-03-19] MEDS: LIDOCAINE 5% TRANSDERMAL PATCH 1 EACH TP (09:52)
[2024-03-19] MEDS: METOPROLOL SUCCINATE XL 50MG TABLET 75 MG PO (09:52)
[2024-03-19] MEDS: dilTIAZem HCL 180MG CAP.ER.24H 180 MG PO ×2 (09:52→20:48)
--- NOTE | 2024-03-19 15:15 | PC.NURSE ---
Pt. aox4, up ad luis, on lux JIANG this am was a 4 and he got one dose of valium oral, has a vitamin bag infusing at the moment, no complaints of pain today, CT abdomen showed an enlarged fatty liver, regular diet, will continue to monitor.
[2024-03-19] MEDS: LACTATED RINGERS 1000ML 1,000 ML 100 ML IV (16:25)
[2024-03-19] MEDS: MULTIVITAMIN TABLET 1 EACH PO (16:25)
[2024-03-19] MEDS: PANTOPRAZOLE 40MG TABLET 40 MG PO (20:48)
[2024-03-20] VITALS: BP 145/74; PULSE 70; PULSE 74; RESP 17; TEMP 37.2; O2SAT 93
[2024-03-20 04:00] VITALS: BP 148/94; PULSE 60; PULSE 69; RESP 18; TEMP 36.9; O2SAT 93; BMI 29.3
[2024-03-20] MEDS: LACTATED RINGERS 1000ML 1,000 ML 100 ML IV (04:27)
[2024-03-20 07:24] LABS: Basophils % 0.7 % (0.1-2.0); Eosinophils # 0.1 K/mm3 (0.0-0.4); Eosinophils % 1.3 % (0.1-12.0); Hematocrit 41.9 % (42.0-52.0); Lymphocytes # 1.4 K/mm3 (0.7-4.5); Lymphocytes % 24.3 % (10-50); Mean Corpuscular HGB Conc 33.4 g/dL (31.8-35.4); Mean Corpuscular Hemoglobin 36.7 pg (27.0-31.2); Mean Corpuscular Volume 109.9 fl (80-94); Mean Platelet Volume 9.1 fl (7.4-10.4); Monocytes # 0.8 K/mm3 (0.1-1.0); Monocytes % 13.3 % (1.7-9.3); Neutrophils # 3.5 K/mm3 (1.8-7.8); Neutrophils % 60.4 % (37.0-80.0); Platelet Count 183 K/mm3 (142-424); Red Blood Count 3.81 M/mm3 (4.60-6.20); White Blood Count 5.8 K/mm3 (4.8-10.8)
[2024-03-20 07:38] LABS: Alanine Aminotransferase 110 U/L (12-78); Albumin/Globulin Ratio 1.3 (1.1-1.8); Alkaline Phosphatase 114 U/L (38-126); Aspartate Amino Transferase 164 U/L (17-59); Bilirubin,Total 1.7 mg/dl (0.2-1.3); Blood Urea Nitrogen 14 mg/dl (9-20); Calcium 9.6 mg/dl (8.4-10.2); Carbon Dioxide 28 mmol/L (22.0-30.0); Chloride 102 mmol/L (98-107); Creatine Kinase 143 U/L (55-170); Creatinine Clearance Estimated 85 mL/min (50-200); Estimated Glomerular Filt Rate 57 ml/min (>60); GFR (African American) 68 ML/MIN (>60); Globulin 3.2 g/dL (1.3-3.2); Glucose 98 mg/dl (74-100); Sodium 137 mmol/L (136-145); Total Protein,Serum 7.2 g/dl (6.3-8.2)
[2024-03-20 08:00] VITALS: BP 162/90; PULSE 79; PULSE 80; RESP 16; TEMP 36.6
[2024-03-20] MEDS: THIAMINE 100MG TABLET 100 MG PO (08:23)
[2024-03-20] MEDS: METOPROLOL SUCCINATE XL 50MG TABLET 75 MG PO (08:23)
[2024-03-20] MEDS: dilTIAZem HCL 180MG CAP.ER.24H 180 MG PO (08:23)
[2024-03-20] MEDS: FOLIC ACID 1MG TABLET 1 MG PO (08:23)
[2024-03-20] MEDS: LIDOCAINE 5% TRANSDERMAL PATCH 1 EACH TP (08:24)
--- NOTE | 2024-03-20 08:36 | P.PN_ITS ---
Subjective *Date: 03/20/24 *Time: 08:36 Interval history: Patient with no new complaints today, feels better, anxious to go home. Medical Exam Vital signs and Labs for Last 24 Hours: Vital Signs Temp Pulse Pulse Resp BP Pulse Ox O2 Del Method 03/20/24 08:12 Room Air 03/20/24 08:00 80 03/20/24 08:00 Room Air 03/20/24 06:51 Room Air 03/20/24 05:00 Room Air 03/20/24 04:00 60 03/20/24 04:00 98.4 F 69 18 148/94 H 93 L Room Air 03/20/24 03:00 Room Air 03/20/24 01:00 Room Air 03/20/24 00:00 70 03/20/24 00:00 99.0 F 74 17 145/74 H 93 L Room Air 03/19/24 23:00 Room Air 03/19/24 21:00 Room Air 03/19/24 20:52 Room Air 03/19/24 20:00 80 03/19/24 20:00 97.9 F 83 18 147/104 H 94 L Room Air 03/19/24 17:34 Room Air 03/19/24 16:00 70 03/19/24 16:00 98 F 72 18 166/88 H 96 03/19/24 13:20 Room Air 03/19/24 12:00 80 03/19/24 11:55 Room Air 03/19/24 09:38 Room Air Intake and Output 03/19/24 03/20/24 03/20/24 23:59 07:59 15:59 Intake Total 400 / 2063 1347 / 1347 Output Total 700 / 1999 1600 / 1600 Balance -300 / 63 -253 / -253 Intake: Intake, Oral Amount 400 / 940 480 / 480 Intake, Total IV Amount 867 / 867 Lactated Ringers 1000ML 1,000 867 / 867 ml @ 100 mls/hr IV .Q10H [facility] Rx #:[id number] Output: Output, Urine Amount 700 / 2000 1600 / 1600 Other: Number of Unmeasured Voids 0 Weight 216 lb 8 oz Patient Weight 03/20/24 23:59 Weight 216 lb 8 oz Laboratory Results - last 24 hr 03/20/24 06:50: WBC 5.8, RBC 3.81 L, Hgb 14.0 L, Hct 41.9 L, MCV 109.9 H, MCH 36.7 H, MCHC 33.4, RDW 16.0, Plt Count 183, MPV 9.1, Neut % (Auto) 60.4, Lymph % (Auto) 24.3, [place] % (Auto) 13.3 H, Eos % (Auto) 1.3, Baso % (Auto) 0.7, Neut # (Auto) 3.5, Lymph # (Auto) 1.4, [place] # (Auto) 0.8, Eos # (Auto) 0.1, Baso # (Auto) 0.0, Sodium 137, Potassium 4.0, Chloride 102, Carbon Dioxide 28, Anion Gap 11.0, BUN 14, Creatinine 1.30 H, Estimated Creat Clear 85, Estimated GFR 57 L, Est GFR ( Amer) 68, Glucose 98, Calcium 9.6, Total Bilirubin 1.7 H, AST 164 H D, ALT 110 H, Alkaline Phosphatase 114, Total Creatine Kinase 143 D, Total Protein 7.2, Albumin 4.0, Globulin 3.2, Albumin/Globulin Ratio 1.3 I & O for Labs for Last 24 Hours: Intake & Output 03/17/24 03/18/24 03/19/24 03/20/24 23:59 23:59 23:59 23:59 Intake Total 2063 / 2063 1347 / 1347 Output Total 1300 / 2000 1600 / 1600 Balance 763 / 63 -253 / -253 Weight 216 lb 216 lb 0.002 oz 216 lb 8 oz Constitutional: Present no acute distress Respiratory: Present normal respiratory effort Cardiac: Present Reg Rate and Rhythm GI: Present normal bowel sounds; Absent tenderness Extremities: Present normal inspection and full ROM Skin: Present intact; Absent erythema Neuro: Present Grossly Intact and moves all extremities Assessment and Plan *Assessment and plan (1) Nausea and vomiting: Status: Acute Category: Medical Code(s): R11.2 - Nausea with vomiting, unspecified (2) Dehydration: Status: Acute Category: Medical Code(s): E86.0 - Dehydration (3) Transaminitis: Status: Acute Category: Medical Code(s): R74.01 - Elevation of levels of liver transaminase levels (4) Rhabdomyolysis: Status: Acute Category: Medical Code(s): M62.82 - Rhabdomyolysis (5) Acute on chronic renal insufficiency: Status: Acute Category: Medical Code(s): N28.9 - Disorder of kidney and ureter, unspecified; N18.9 - Chronic kidney disease, unspecified (6) Abnormal nuclear cardiac imaging test: Status: Acute Category: Medical Code(s): R93.1 - Abnormal findings on diagnostic imaging of heart and coronary circulation (7) Atypical angina: Status: Acute Category: Medical Code(s): I20.89 - Other forms of angina pectoris (8) Gallstones: Status: Acute Category: Medical Code(s): K80.20 - Calculus of gallbladder without cholecystitis without obstruction (9) Alcohol abuse: Status: Acute Category: Social Hx Code(s): F10.10 - Alcohol abuse, uncomplicated (10) Primary hypertension: Status: Chronic Category: Medical Code(s): I10 - Essential (primary) hypertension (11) COPD (chronic obstructive pulmonary disease): Status: Chronic Qualifiers: COPD type: unspecified COPD Qualified Code(s): J44.9 - Chronic obstructive pulmonary disease, unspecified Category: Medical Code(s): J44.9 - Chronic obstructive pulmonary disease, unspecified (12) GERD (gastroesophageal reflux disease): Status: Chronic Qualifiers: Esophagitis presence: esophagitis presence not specified Qualified Code(s): K21.9 - Gastro-esophageal reflux disease without esophagitis Category: Medical Code(s): K21.9 - Gastro-esophageal reflux disease without esophagitis (13) HLD (hyperlipidemia): Status: Chronic Qualifiers: Hyperlipidemia type: mixed hyperlipidemia Qualified Code(s): E78.2 - Mixed hyperlipidemia Category: Medical Code(s): E78.5 - Hyperlipidemia, unspecified (14) Coronary artery disease: Status: Chronic Qualifiers: Coronary Disease-Associated Artery/Lesion type: [place] artery [place] vs. transplanted heart: [place] heart Associated angina: without angina Qualified Code(s): I25.10 - Atherosclerotic heart disease of [place] coronary artery without angina pectoris Category: Medical Code(s): I25.10 - Atherosclerotic heart disease of [place] coronary artery without angina pectoris Plan Labs have all improved, renal function is near normal. OK to discharge home today. Plan for outpatient left heart cath in 2 days at [facility]. Plan office follow up Dr. Alvarez in about 2 weeks. Discussed abstaining from ETOH completely.
--- NOTE | 2024-03-22 08:21 | EXP.DC.SUM ---
General Admission date:: 03/18/24 Discharge date: 03/20/24 HPI HPI HPI: This patient is a 59-year-old male with a history of previous evaluation in the emergency department for liver injury and kidney injury and subsequent transfer to as well as hypertension, hyperlipidemia, CAD, GERD, COPD, and alcohol and tobacco use presented to the emergency department for evaluation with concern for bilateral flank pain and brown urine. Patient states that he had this before with kidney failure. He notes that his symptoms started today around 3:00 PM when he had gone inside after taking some vegetables and produce to his neighbor. On medical record review, I evaluated him here back in October and transferred him to for evaluation with concern for kidney and liver injury. There, he was found to be in rhabdomyolysis. He was treated at with diuretics and fluid resuscitation for his kidney injury. He was given NAC for his liver injury. Illicit they thought potentially it could have been statin induced myopathy. He states has been told multiple times that he has a pancreatic mass, but he has had ultrasound and MRCP that have not shown mass. I confirmed this by reviewing his prior records, but it looks like he was supposed to have another CT scan of his abdomen and pelvis and MRCP as an outpatient once improved. He notes that he has not been drinking, but on further questioning he states that his last drink was approximately a week ago. He notes that he gets the shakes with alcohol cessation, but no seizures or other withdrawal symptoms. (above as per ER physician) Furthe to above history, the patient states he began feeling bad on Friday. He felt like he was having a gallbladder attack. He was told at he had a bad gallbladder and stones and that it would need to come out eventually. He began vomiting on Friday and feels he got dehydrated. He was then outside in the heat on and admits he was not drinking enough. He felt faint when he took the vegetables to his neighbor and began drinking water. When he noticed his urine was getting dark, he came straight to the ER. He had to have some pain medication last night and zofran. He vomited once this am after drinking a pepsi, but has been able to eat and kept that down. He is scheduled to have a heart cath on Friday as well. He was also told at that he did not have a pancreatic mass but rather fat around the pancreas. Hospital Course Hospital Course Hospital Course: 03/18/24 17:17: WBC 6.7, RBC 4.42 L, Hgb 15.1, Hct 48.5, MCV 109.7 H, MCH 34.2 H, MCHC 31.1 L, RDW 16.1, Plt Count 162, MPV 9.2, Neut % (Auto) 67.6, Lymph % (Auto) 21.2, [place] % (Auto) 8.9, Eos % (Auto) 1.2, Baso % (Auto) 1.1, Neut # (Auto) 4.5, Lymph # (Auto) 1.4, [place] # (Auto) 0.6, Eos # (Auto) 0.1, Baso # (Auto) 0.1, PT 10.8, INR 0.96, APTT 28.0, Sodium 134 L, Potassium 4.3, Chloride 100, Carbon Dioxide 25, Anion Gap 13.3, BUN 13, Creatinine 1.50 H, Estimated Creat Clear 71, Estimated GFR 48 L, Est GFR ( Amer) 58 L, Glucose 90, Calcium 9.7, Phosphorus 3.9, Magnesium 2.0, Total Bilirubin 3.0 H, AST 267 H, ALT 144 H, Alkaline Phosphatase 126, Total Creatine Kinase 337 H, Total Protein 8.2, Albumin 4.8, Globulin 3.4 H, Albumin/Globulin Ratio 1.4, Lipase 293, Acetaminophen < 10 L, Plasma/Serum Alcohol < 10 03/18/24 17:21: VBG pH 7.41, VBG pCO2 37.0, VBG pO2 40.7 H, VBG HCO3 23.1, VBG Total CO2 24.3, VBG O2 Saturation 74.6 H, VBG Base Excess -1.4, VBG Lactic Acid 1.0 03/18/24 17:57: SARS-CoV-2 (PCR) Not detected, Influenza A Untype (PCR) Not detected, Influenza Type B (PCR) Not detected 03/18/24 18:33: Urine Color Yellow, Urine Appearance Clear, Urine pH 7.0, Ur Specific [place] 1.010, Urine Protein Trace, Urine Glucose (UA) Negative, Urine Ketones 1+, Urine Blood Negative, Urine Nitrate Negative, Urine Bilirubin Negative, Urine Urobilinogen 1.0, Ur Leukocyte Esterase Negative, Urine RBC Occasional, Urine WBC Occasional, Ur Squamous Epith Cells Occasional On admission patient was continued with IV fluids for hydration. He was also started on alcohol withdrawal precautions. Laboratory data did improve. Renal function was near normal. The following day on 03/20/2024 patient was feeling much better and anxious to go home. He was eating well without problems. He Was discharged. Plan was for outpatient heart cath on 03/22/2024 at [facility]. He was also to follow-up with Dr. Alvarez in about 2 weeks. Abstaining from EtOH completely was discussed with patient. Exam Data for Last 24 hours Vital signs and Labs for Last 24 Hours: Temp Pulse Resp BP Pulse Ox O2 Del Method 98 F 79 16 162/90 H 93 L Room Air 03/20/24 08:00 03/20/24 08:00 03/20/24 08:00 03/20/24 08:00 03/20/24 04:00 03/20/24 08:12 I & O for Last 24 hours: Intake & Output 03/19/24 03/20/24 03/21/24 03/22/24 11:59 11:59 11:59 11:59 Intake Total 488 / 488 3282 / 3282 Output Total 600 / 600 2300 / 2300 Balance -112 / -112 982 / 982 Weight 216 lb 0.002 oz 216 lb 8 oz Narrative: Constitutional: Present no acute distress Respiratory: Present normal respiratory effort Cardiac: Present Reg Rate and Rhythm GI: Present normal bowel sounds; Absent tenderness Extremities: Present normal inspection and full ROM Skin: Present intact; Absent erythema Neuro: Present Grossly Intact and moves all extremities Results Data Completed and Pending Completed studies during hospitalization [Text1]: 03/18/2024 CT abd/pelvis IMPRESSION: 1. Apparent interval resolution of previously described mass in the region uncinate process of the pancreas. Mild persistent peripancreatic fatty stranding noted in this area. 2. Enlarged, fatty liver 2. Chronic osseous and atherosclerotic changes as described. 03/18/2024 CT of Lumbar Spine FINDINGS: Bones/joints: Bilateral spondylolysis borderline grade 1-2 anterolisthesis of L4. Severe degenerative disc changes with marked disc space narrowing noted at the L4-L5 disc level. More mild degenerative changes throughout the remainder of the lumbar spine. No vertebral body compression or acute fracture. Partial sacralization of the L5 noted. Vasculature: Mild atherosclerotic calcification throughout the distal aorta and iliac arteries. No evidence of aneurysm. Soft tissues: Unremarkable. IMPRESSION: Significant chronic findings as noted. No acute abnormality evident DS: Diagnosis Discharge Diagnosis (1) Nausea and vomiting: Status: Acute Code(s): R11.2 - Nausea with vomiting, unspecified (2) Dehydration: Status: Acute Code(s): E86.0 - Dehydration (3) Transaminitis: Status: Acute Code(s): R74.01 - Elevation of levels of liver transaminase levels (4) Rhabdomyolysis: Status: Acute Code(s): M62.82 - Rhabdomyolysis (5) Acute on chronic renal insufficiency: Status: Acute Code(s): N28.9 - Disorder of kidney and ureter, unspecified; N18.9 - Chronic kidney disease, unspecified (6) Abnormal nuclear cardiac imaging test: Status: Acute Code(s): R93.1 - Abnormal findings on diagnostic imaging of heart and coronary circulation (7) Atypical angina: Status: Acute Code(s): I20.89 - Other forms of angina pectoris (8) Gallstones: Status: Acute Code(s): K80.20 - Calculus of gallbladder without cholecystitis without obstruction (9) Alcohol abuse: Status: Acute Code(s): F10.10 - Alcohol abuse, uncomplicated (10) Primary hypertension: Status: Chronic Code(s): I10 - Essential (primary) hypertension (11) COPD (chronic obstructive pulmonary disease): Status: Chronic Code(s): J44.9 - Chronic obstructive pulmonary disease, unspecified Qualifiers: COPD type: unspecified COPD Qualified Code(s): J44.9 - Chronic obstructive pulmonary disease, unspecified (12) GERD (gastroesophageal reflux disease): Status: Chronic Code(s): K21.9 - Gastro-esophageal reflux disease without esophagitis Qualifiers: Esophagitis presence: esophagitis presence not specified Qualified Code(s): K21.9 - Gastro-esophageal reflux disease without esophagitis (13) HLD (hyperlipidemia): Status: Chronic Code(s): E78.5 - Hyperlipidemia, unspecified Qualifiers: Hyperlipidemia type: mixed hyperlipidemia Qualified Code(s): E78.2 - Mixed hyperlipidemia (14) Coronary artery disease: Status: Chronic Code(s): I25.10 - Atherosclerotic heart disease of [place] coronary artery without angina pectoris Qualifiers: Coronary Disease-Associated Artery/Lesion type: [place] artery [place] vs. transplanted heart: [place] heart Associated angina: without angina Qualified Code(s): I25.10 - Atherosclerotic heart disease of [place] coronary artery without angina pectoris Meds Home Medications and Allergies Home Medications ?Medication ?Instructions ?Recorded ?Confirmed ?Type testosterone 30 mg/actuation (1.5 2 pump topical DAILY hormone 01/01/22 03/19/24 History mL) transderm solution metered pump replacement omeprazole 40 mg capsule,delayed 40 mg PO BID 03/25/22 03/18/24 History release clopidogrel 75 mg tablet 75 mg PO DAILY 03/18/24 03/18/24 History diltiazem HCl 180 mg 180 mg PO BID 03/18/24 03/18/24 History capsule,extended release 24 hr magnesium oxide 400 mg (241.3 mg 800 mg PO BID 03/19/24 03/19/24 History magnesium) tablet metoprolol succinate 50 mg 75 mg PO DAILY 03/19/24 03/19/24 History tablet,extended release 24 hr rosuvastatin 20 mg tablet 20 mg PO HS 03/19/24 03/19/24 History New Prescriptions to Start Prescriptions: Allergies Allergy/AdvReac Type Severity Reaction Status Date / Time atorvastatin AdvReac Severe Verified 02/26/24 08:57 isosorbide AdvReac Mild Headache Verified 02/26/24 09:22 Discharge Plan Disposition Patient Disposition: Home, Self-Care Condition: Good Discharge Order Discharge Orders: Discharge Order (Routine); Ordered 03/20/24 Ordered By: Salvador Herrera Follow up Plan Follow up with: Salvador Alvarez MD [Primary Care Provider] - 04/01/24 (please call for folllow up appointment. ) Prescriptions/Medication Reconciliation: Continued testosterone 30 mg/actuation (1.5 mL) solution in metered pump w/valdez 2 pump topical DAILY diltiazem HCl 180 mg capsule,extended release 24hr 180 mg PO BID clopidogrel 75 mg tablet 75 mg PO DAILY magnesium oxide 400 mg (241.3 mg magnesium) tablet 800 mg PO BID Patient Comments: TAKE 2 TABLETS (800 MG) BY MOUTH 2 (TWO) TIMES A DAY. rosuvastatin 20 mg tablet 20 mg PO HS Patient Comments: TAKE 1 TABLET BY MOUTH EVERY DAY FOR 30 DAYS metoprolol succinate 50 mg tablet extended release 24 hr 75 mg PO DAILY omeprazole 40 MG capsule,delayed release(DR/EC) 40 mg PO BID Problem Reconciliation Problems Reviewed?: Yes Patient Discharge Instructions ACTIVITY: Continue current activity DIET: continue same diet Patient Instructions: DI for Drug or Alcohol Withdrawal, DI for Rhabdomyolysis Print Language: Albanian Providers Primary Care Provider: Salvador Alvarez Admit Provider: Salvador Herrera Attending Provider: Salvador Herrera
--- NOTE | 2024-03-23 12:56 | CARE MANAGER ---
Unable to reach patient via phone to discuss recent discharge. Call attempted X 2 and VM was left with call back information.
== END 2024-03-20 09:41 | disposition home or self-care (01) ==
LOC: ER 19:31 → 2ND 19:59
PROVIDERS: Admitting Provider Family Medicine; Emergency Provider Emergency Medicine; PCP Family Medicine; Visit Provider Family Medicine
DX: R11.2 Nausea with vomiting, unspecified (principal); R10.9 Unspecified abdominal pain; E86.0 Dehydration; M62.82 Rhabdomyolysis; N18.9 Chronic kidney disease, unspecified; I12.9 Hypertensive chronic kidney disease with stage 1 through stage 4 chronic kidney disease, or unspecified chronic kidney disease; K76.0 Fatty (change of) liver, not elsewhere classified; R74.01 Elevation of levels of liver transaminase levels; R79.89 Other specified abnormal findings of blood chemistry; R93.1 Abnormal findings on diagnostic imaging of heart and coronary circulation; K80.20 Calculus of gallbladder without cholecystitis without obstruction; F10.10 Alcohol abuse, uncomplicated; J44.9 Chronic obstructive pulmonary disease, unspecified; E78.2 Mixed hyperlipidemia; K21.9 Gastro-esophageal reflux disease without esophagitis; I25.118 Atherosclerotic heart disease of native coronary artery with other forms of angina pectoris; Z09 Encounter for follow-up examination after completed treatment for conditions other than malignant neoplasm; Z87.891 Personal history of nicotine dependence; Y90.0 Blood alcohol level of less than 20 mg/100 ml
CPT/HCPCS: 72131; 74176; 80053; 80320; 80329; 81001; 82550; 82803; 83690; 83735; 84100; 85025; 85610; 85730; 87636; 99285; G0378; G0480; J1170; J2405; J3411; J7120

== ENCOUNTER 2024-03-22 07:06 | Day surgery (SDC) | payer BC, SELFPAY ==
[2024-03-22] VITALS (13 sets, daily range): BP systolic 111–161; BP diastolic 7–103; PULSE 62–76; RESP 14–20; TEMP 36.6–36.8; O2SAT 92–100; BMI 63.3
--- NOTE | 2024-03-22 07:03 | IR_ITS ---
APPROVED REPORT Patient Location: Outpatient Wood Lathe Operator: CAYLA Campbell RT (R) PROCEDURES Left heart catheterization Left ventriculogram Selective coronary angiogram INDICATION Known coronary artery disease, Chest pain with abnormal stress test Informed consent was obtained prior to the procedure. COMPLICATIONS NONE Estimated Blood Loss: LESS THAN 10 ML TECHNIQUE One percent lidocaine used to anesthetize the right anterior aspect of the wrist. The right radial artery was accessed via the Seldinger technique. A 6 [place] sheath was placed in the right radial artery. 2.5 mg of Verapamil, 800 mcg of nitroglycerin, 1mg Lidocaine and 5000 U Heparin were given through the arterial sheath. The papa catheter and 6 [place] multipurpose catheter were also used to perform left heart catheterization, left ventriculogram and selective coronary angiogram. At the end of the procedure the sheath was removed good hemostasis was achieved using Traclet band, patient was transferred to the postop holding area in stable condition. ANGIOGRAPHIC RESULTS The left anterior descending artery Originates in the left coronary cusp and has ostial proximal 10 to 20% stenoses with mid vessel 20 and 30% stenosis. Gives rise to a large nearly 3-1/2 mm ramus intermedius or first diagonal artery which has mild 10 to 20% luminal regularities The circumflex artery Originates in the right coronary cusp and has an ostial proximal smooth 20 to 30% stenosis with a stent in the mid segment which is widely patent with minimal in-stent restenosis The right coronary artery Originates in the right coronary cusp and is patent in the proximal segment and then subtotally occluded at mid segment the distal vessel fills via [id number] collaterals The REYES ventriculogram reveals Preserved 55 to 60% The left ventricular end-diastolic pressure 10 to 15 mmHg IMPRESSION Coronary artery disease as described above Preserved ejection fraction Normal LVEDP PLAN 1. Aggressive risk factor modification 2. Medical management for coronary disease Electronically signed by : Toro Pimentel MD 03/22/2024 10:31:10
[2024-03-22 07:26] LABS: Basophils # 0.1 K/mm3 (0-0.2); Basophils % 1.4 % (0.1-2.0); Eosinophils # 0.1 K/mm3 (0.0-0.4); Eosinophils % 1.3 % (0.1-12.0); Hematocrit 48.9 % (42.0-52.0); Hemoglobin 15.1 g/dL (14.1-18.0); Lymphocytes # 1.7 K/mm3 (0.7-4.5); Lymphocytes % 23.8 % (10-50); Mean Corpuscular HGB Conc 30.8 g/dL (31.8-35.4); Mean Corpuscular Hemoglobin 33.9 pg (27.0-31.2); Mean Platelet Volume 8.9 fl (7.4-10.4); Monocytes # 0.9 K/mm3 (0.1-1.0); Monocytes % 12.4 % (1.7-9.3); Neutrophils # 4.4 K/mm3 (1.8-7.8); Platelet Count 267 K/mm3 (142-424); Red Blood Count 4.44 M/mm3 (4.60-6.20); Red Cell Distribution Width 15.8 % (11.5-17.5); White Blood Count 7.3 K/mm3 (4.8-10.8)
[2024-03-22 07:27] LABS: Chloride 103 mmol/L (98-107); Potassium 4.5 mmoL/L (3.5-5.1); Sodium 136 mmol/L (136-145)
[2024-03-22 07:30] LABS: Anion Gap 10.5 mEq/L (5-15); Blood Urea Nitrogen 19 mg/dl (9-20); Carbon Dioxide 27 mmol/L (22.0-30.0); Creatinine Clearance Estimated 62 mL/min (50-200); Estimated Glomerular Filt Rate 52 ml/min (>60); GFR (African American) 63 ML/MIN (>60)
[2024-03-22 07:31] LABS: Calcium 9.5 mg/dl (8.4-10.2); Glucose 107 mg/dl (74-100)
[2024-03-22] MEDS: VERAPAMIL 2.5MG/ML 2ML VIAL 2.5 MG IV (09:42)
[2024-03-22] MEDS: HEPARIN 1,000 UNITS/ML 10ML VIAL (CATH LAB) 10000 UNIT IV (09:42)
[2024-03-22] MEDS: MIDAZOLAM HCL 1MG/1ML 5ML VIAL 1 MG IV (09:43)
[2024-03-22] MEDS: diphenhydrAMINE 50MG/ML VIAL 50 MG IV (09:43)
[2024-03-22] MEDS: LIDOCAINE 1% 10ML MDV 20 ML IJ (09:43)
[2024-03-22] MEDS: FENTANYL 100MCG/2ML VIAL 50 MCG IV (09:43)
[2024-03-22] MEDS: 0.9 % SODIUM CHLORIDE 500 ML 25 ML IV (09:45)
--- NOTE | 2024-03-22 10:43 | SUR.PHASEII ---
REPORT TO BREN RN IN POST OP, PATIENT TAKEN TO POST OP FOR RECOVERY
[2024-03-22] MEDS: IOPAMIDOL-370 (76%);100ML BOTTLE 120 ML IV (13:28)
== END 2024-03-22 13:20 | disposition home or self-care (01) ==
PROVIDERS: PCP Family Medicine; Visit Provider Internal Medicine
DX: R93.1 Abnormal findings on diagnostic imaging of heart and coronary circulation; I11.9 Hypertensive heart disease without heart failure; Z87.891 Personal history of nicotine dependence; J44.9 Chronic obstructive pulmonary disease, unspecified; K21.9 Gastro-esophageal reflux disease without esophagitis; E78.5 Hyperlipidemia, unspecified; Z79.899 Other long term (current) drug therapy; I25.118 Atherosclerotic heart disease of native coronary artery with other forms of angina pectoris
CPT/HCPCS: 36415; 80048; 85025; 93458; 99152; 99153; C1725; C1769; J1200; J1644; J2250; J3010; Q9967

== ENCOUNTER 2024-07-06 09:01 | Outpatient (CLI) | payer BC, SELFPAY ==
[2024-07-06 11:01] LABS: Alanine Aminotransferase 89 U/L (12-78); Albumin Level 4.2 g/dl (3.5-5.0); Alkaline Phosphatase 190 U/L (38-126); Aspartate Amino Transferase 238 U/L (17-59); Bilirubin,Direct 0.6 mg/dl (0.0-0.4); Bilirubin,Indirect 0.1 mg/dL (0.0-0.9); Bilirubin,Total 0.7 mg/dl (0.2-1.3); Bilirubin,Unconjugated 0.1 mg/dL (0.0-1.1); HDL Cholesterol 58 mg/dl (40-60); Total Protein,Serum 6.8 g/dl (6.3-8.2); Triglycerides 292 mg/dl (30-150); VLDL Cholesterol 58 mg/dL (0-40)
[2024-07-06 11:08] LABS: Chol/HDL Ratio 5.5 (1-3.5); Cholesterol 319 mg/dl (140-200)
[2024-07-06 11:12] LABS: Direct LDL Cholesterol 237.28 mg/dL (100-129)
== END 2024-07-06 23:59 | disposition home or self-care (01) ==
LOC: LAB 09:02
PROVIDERS: PCP Family Medicine; Visit Provider Nurse Practitioner
DX: E78.1 Pure hyperglyceridemia (principal); I10 Essential (primary) hypertension; R74.8 Abnormal levels of other serum enzymes; E78.2 Mixed hyperlipidemia; I25.10 Atherosclerotic heart disease of native coronary artery without angina pectoris
CPT/HCPCS: 36415; 80061; 80076

== ENCOUNTER 2024-07-09 07:11 | Outpatient (CLI) | payer BC, SELFPAY ==
[2024-07-09 07:42] LABS: Basophils # 0.1 K/mm3 (0-0.2); Basophils % 1.2 % (0.1-2.0); Eosinophils # 0.1 K/mm3 (0.0-0.4); Eosinophils % 0.9 % (0.1-12.0); Hematocrit 47.1 % (42.0-52.0); Hemoglobin 15.6 g/dL (14.1-18.0); Lymphocytes # 1.2 K/mm3 (0.7-4.5); Lymphocytes % 17.7 % (10-50); Mean Corpuscular HGB Conc 33.1 g/dL (31.8-35.4); Mean Corpuscular Hemoglobin 35.9 pg (27.0-31.2); Mean Corpuscular Volume 108.4 fl (80-94); Mean Platelet Volume 7.7 fl (7.4-10.4); Monocytes # 0.4 K/mm3 (0.1-1.0); Monocytes % 6.6 % (1.7-9.3); Neutrophils # 4.9 K/mm3 (1.8-7.8); Neutrophils % 73.8 % (37.0-80.0); Platelet Count 234 K/mm3 (142-424); Red Blood Count 4.35 M/mm3 (4.60-6.20); Red Cell Distribution Width 15.4 % (11.5-17.5); White Blood Count 6.7 K/mm3 (4.8-10.8)
[2024-07-09 07:54] LABS: INR 0.98 (0.9-1.1)
[2024-07-09 08:22] LABS: Albumin Level 4.3 g/dl (3.5-5.0); Chloride 107 mmol/L (98-107); Potassium 3.9 mmoL/L (3.5-5.1); Sodium 141 mmol/L (136-145)
[2024-07-09 08:24] LABS: Blood Urea Nitrogen 9 mg/dl (9-20); Estimated Glomerular Filt Rate 76 ml/min (>60); GFR (African American) 93 ML/MIN (>60)
[2024-07-09 08:25] LABS: Alanine Aminotransferase 82 U/L (12-78); Albumin/Globulin Ratio 1.7 (1.1-1.8); Alkaline Phosphatase 198 U/L (38-126); Anion Gap 12.9 mEq/L (5-15); Aspartate Amino Transferase 217 U/L (17-59); Bilirubin,Total 1.1 mg/dl (0.2-1.3); Carbon Dioxide 25 mmol/L (22.0-30.0); Globulin 2.6 g/dL (1.3-3.2); Glucose 113 mg/dl (74-100); Total Protein,Serum 6.9 g/dl (6.3-8.2)
[2024-07-10 09:00] LABS: HBsAg Screen Negative (Negative); HCV Ab Non Reactive (Non Reactive); Hep A Ab, IGM Negative (Negative); Hep B Core Ab, IgM Negative (Negative)
[2024-07-13 07:30] LABS: ALT (SGPT) P5P 86 IU/L (0-55); AST (SGOT) P5P 220 IU/L (0-40); Alpha 2-Macroglobulins, Qn 167 mg/dL (110-276); Apolipoprotein A-1 168 mg/dL (101-178); Bilirubin, Total 0.7 mg/dL (0.0-1.2); Cholesterol, Total 346 mg/dL (100-199); GGT 3444 IU/L (0-65); Glucose 112 mg/dL (70-99); Haptoglobin 142 mg/dL (29-370); Triglycerides 369 mg/dL (0-149)
== END 2024-07-09 23:59 | disposition home or self-care (01) ==
LOC: LAB 07:12
PROVIDERS: PCP Family Medicine; Visit Provider Nurse Practitioner Family
DX: R74.8 Abnormal levels of other serum enzymes (principal)
CPT/HCPCS: 36415; 80053; 80074; 85025; 85610

== ENCOUNTER 2024-07-13 07:44 | Outpatient (CLI) | payer BC, SELFPAY ==
--- NOTE | 2024-07-13 07:47 | US_ITS ---
FINAL REPORT CLINICAL HISTORY: elevated LFTs COMPARISON: CT abdomen pelvis dated 03/18/2024 FINDINGS: Sonographic images of the right upper quadrant were obtained. The pancreas is obscured. There is fatty infiltration of the liver present. Tumefactive sludge is present in the gallbladder, measuring up to 21 mm near the neck of the gallbladder. There is no evidence of biliary ductal dilatation.The common duct measures 3 mm. Limited images of the right kidney are unremarkable. IMPRESSION: Fatty infiltration of the liver. Tumefactive sludge is present in the gallbladder, measuring up to 21 mm in size near the neck of the gallbladder. No biliary ductal dilatation is identified. Reviewed, Interpreted and Dictated by Chester Greenwood III, MD Transcribed by Michelle Whitney Authenticated and [facility]
== END 2024-07-13 23:59 | disposition home or self-care (01) ==
LOC: RAD 07:45
PROVIDERS: PCP Family Medicine; Visit Provider Nurse Practitioner Family
DX: R74.8 Abnormal levels of other serum enzymes (principal); K76.0 Fatty (change of) liver, not elsewhere classified
CPT/HCPCS: 76705

== ENCOUNTER 2024-09-13 13:15 | Inpatient (IN) | payer BC, SELFPAY ==
[2024-09-13] VITALS (24 sets, daily range): BP systolic 109–162; BP diastolic 76–93; PULSE 73–128; RESP 15–25; TEMP 36.6–37.1; O2SAT 90–97; BMI 27.9; BMI 28.3
--- NOTE | 2024-09-13 13:29 | PC.NURSE ---
pt taken to Rm 10. ASSESSMENT. pt states called and told him that he is in liver failure based on lab work he had in office on . pt presents jaundice with icterus. pt states he is a daily drinker and drinks approximately 6 shots of whiskey per day. pt also has a hx of kidney failure. no needs voiced. call anderson in reach.
--- NOTE | 2024-09-13 13:55 | PC.NURSE ---
DR SINGER AT BEDSIDE
--- NOTE | 2024-09-13 13:57 | PC.NURSE ---
Pt. sitting on side of the bed at this time. No needs at this. Call light in reach
--- NOTE | 2024-09-13 14:10 | CT_ITS ---
FINAL REPORT TECHNIQUE: Oral and IV contrast enhanced exam. Coronal and sagittal images were obtained and reviewed. This study was performed with techniques to keep radiation doses as low as reasonably achievable, (ALARA). Individualized dose reduction techniques using automated exposure control or adjustment of mA and/or kV according to the patient''s size were employed. CLINICAL HISTORY: painless jaundice COMPARISON: 03/18/2024 FINDINGS: Abdomen: No acute density is seen within the lung bases. There is severe fatty infiltration of the liver. Mild hepatomegaly is noted. The spleen is normal. There is a small fluid amount of fluid or cystic lesion along the left margin of the uncinate process which could represent pancreatitis or pseudocyst with fluid measuring up to 13 mm. Cholelithiasis without evidence of biliary ductal dilatation. The remaining solid organs are normal. No bowel obstruction is present. There is no free air. No fluid collection is seen. There is no adenopathy. Pelvis: There are no changes of appendicitis. The pelvic bowel loops unremarkable. Mild prostate enlargement is noted. The bladder is unremarkable. IMPRESSION: Minimal fluid adjacent to uncinate process of the pancreas may represent small pseudocyst or changes of pancreatitis. Cholelithiasis without evidence of acute cholecystitis or bowel obstruction. Mild fatty liver. Reviewed, Interpreted and Dictated by Kofi Parada MD Transcribed by Eda Mendenhall Authenticated and [facility]
[2024-09-13 14:15] LABS: Basophils # 0.2 K/mm3 (0-0.2); Basophils % 1.4 % (0.1-2.0); Eosinophils % 0.2 % (0.1-12.0); Hematocrit 38.3 % (42.0-52.0); Hemoglobin 13.3 g/dL (14.1-18.0); Lymphocytes # 0.5 K/mm3 (0.7-4.5); Lymphocytes % 4.4 % (10-50); Mean Corpuscular HGB Conc 34.7 g/dL (31.8-35.4); Mean Corpuscular Hemoglobin 35.9 pg (27.0-31.2); Mean Corpuscular Volume 103.5 fl (80-94); Mean Platelet Volume 10.4 fl (7.4-10.4); Monocytes # 1.3 K/mm3 (0.1-1.0); Monocytes % 11.1 % (1.7-9.3); Neutrophils # 9.7 K/mm3 (1.8-7.8); Neutrophils % 80.6 % (37.0-80.0); Platelet Count 220 K/mm3 (142-424); Red Cell Distribution Width 16.3 % (11.5-17.5)
[2024-09-13 14:17] LABS: Albumin Level 3.9 g/dl (3.5-5.0); Chloride 105 mmol/L (98-107); Potassium 3.2 mmoL/L (3.5-5.1); Sodium 138 mmol/L (136-145)
--- NOTE | 2024-09-13 14:19 | ED_ITS ---
Discharge Plan Disposition Patient Disposition: Admitted Chief Complaint: Recheck/Abnormal Lab/Rx Prescriptions Prescriptions: No Action potassium chloride 40 mEq/15 mL liquid 40 meq PO DAILY albuterol sulfate 90 mcg/actuation HFA aerosol inhaler 2 puff inhalation QID PRN (Reason: asthma) Patient Comments: TAKE 2 PUFFS BY MOUTH 4 TIMES A DAY NEEDED testosterone 30 mg/actuation (1.5 mL) solution in metered pump w/valdez 2 pump topical DAILY diltiazem HCl 180 mg capsule,extended release 24hr 180 mg PO BID Qty: 30 6RF sodium,potassium,mag sulfates [Suprep Bowel Prep Kit] 17.5-3.13-1.6 gram recon soln See Rx Instructions PO .COMPLEX Qty: 354 0RF Rx Instructions: DILUTE; drink full amount early evening before AND next morning at least 4-5 hr before procedure; follow w 960 mL water PO clopidogrel 75 mg tablet 75 mg PO DAILY omeprazole 40 MG capsule,delayed release(DR/EC) 40 mg PO BID Referrals Follow up/Referrals: Salvador Alvarez MD [Primary Care Provider] - See instructions Clinical Impressions Clinical Impression: Acute alcoholic hepatitis, Chronic alcoholism, Alcohol intoxication Print Language Print Language: [place] Citizen Discharge ED Provider: Sandy Nino General Adult HPI General Chief complaint: Recheck/Abnormal Lab/Rx Stated complaint: abnormal labs Time Seen by Provider: 09/13/24 13:52 Mode of Arrival: Ambulatory Source of Information: Patient and Significant Other Limitations: No Limitations Description of Symptoms (Recalled from ER Triage Doc. by RN): PT was called by PCP and advised to come in and be seen due to elevated liver enzymes. Pt does appear jaundiced. History of Present Illness HPI narrative: Patient is a 59-year-old male with a history of chronic alcoholism who has been drinking heavily for many years. He has been followed up outpatient for concern for liver disease associated with this. States that he had blood counts that were abnormal today for Dr. Alvarez, those labs were not sent to our emergency department. He states that he is continuing to drink. Denies a history of known cirrhosis. No changes in mental status no hematemesis or melena. No abdominal pain he has been jaundiced for a week and has had increasing fatigue and lower extremity edema for the last week as well. Related Data Home Medications ?Medication ?Instructions ?Recorded ?Confirmed testosterone 30 mg/actuation (1.5 2 pump topical DAILY hormone 01/01/22 09/13/24 mL) transderm solution metered pump replacement omeprazole 40 mg capsule,delayed 40 mg PO BID 03/25/22 09/13/24 release clopidogrel 75 mg tablet 75 mg PO DAILY 03/18/24 09/13/24 potassium chloride 40 mEq/15 mL 40 meq PO DAILY 04/06/24 09/13/24 oral liquid albuterol sulfate 90 mcg/actuation 2 puff inhalation QID PRN asthma 07/06/24 09/13/24 aerosol inhaler Previous Rx's ?Medication ?Instructions ?Recorded diltiazem HCl 180 mg 180 mg PO BID #30 caps 05/25/24 capsule,extended release 24 hr sodium,potassium,mag sulfates 17.5 See Rx Instructions PO .COMPLEX 09/03/24 gram-3.13 gram-1.6 gram oral soln #354 mL (Suprep Bowel Prep Kit) Allergies Allergy/AdvReac Type Severity Reaction Status Date / Time atorvastatin AdvReac Severe Unknown Verified 09/13/24 13:53 allergy reaction isosorbide AdvReac Mild Headache Verified 09/08/24 10:54 PFSCOX [place] Disclaimer: The information contained in this section may have been updated after the patient was seen, as this information can be updated by other users. Medical History (Updated 09/13/24 @ 15:56 by Sandy Nino MD) Fatigue Mass of pancreas Tick bite Myalgia Acute liver failure Acute renal failure Jaundice Mass of pancreas Alcohol abuse Hypertriglyceridemia Coronary artery disease Cirrhosis Abnormal nuclear cardiac imaging test Rhabdomyolysis Gallstones Transaminitis Hyperuricemia Hepatic steatosis Rheumatoid factor positive Abnormal stress test Edema SOB (shortness of breath) on exertion Primary hypertension Diastolic dysfunction Ex-smoker COPD (chronic obstructive pulmonary disease) GERD (gastroesophageal reflux disease) HLD (hyperlipidemia) HHD (hypertensive heart disease) Surgical History H/O removal of cyst Family History Father Cancer of heart Mother Lung cancer Colon cancer Liver cancer Mother No problems noted. Social History Smoking Status: Never smoker alcohol intake: current alcohol intake frequency: 3 or more drinks per day substance use type: denies use current occupational status: retired Travel in the last 8 weeks: None household members: spouse caffeine: No Have you lived/traveled outside US in past 30 days?: No Contact w/someone who lives/traveled outside US past 30 days?: No Exposure to someone with infectious disease in past 14 days?: No Do you have a fever (greater than 100.4 F or 38 C)?: No Have you tested positive for COVID-19: No Exposed to someone with COVID-19 in past 14 days?: No Do you have a sore throat?: No Do you have a cough?: No Do you have any weakness?: No Do you have any diarrhea?: No Are you experiencing any unusual bleeding?: No Do you have any muscle aches/pain?: No Do you have any abdominal pain?: No Are you experiencing loss of taste or smell?: No Other Medical History Have you received the Flu Vaccine for this season: No Have you received the Pneumonia Vaccine: No ROS Obtained: Yes All systems reviewed & no additional complaints except as documented Physical Exam General General appearance: other (Visibly jaundiced) Respiratory Respiratory exam: Present normal lung sounds bilaterally Cardiovascular Cardiovascular exam: Present regular rate Abdominal Exam Abdominal exam: Present soft and distention; Absent tenderness Neurological Exam Neurological exam: Present alert and oriented X3 Medical Decision Making Medical Records Screening: Per USPSTF and CDC recommendations, given the prevalence of disease in our region, it is our hospital?s policy to screen for HIV and viral Hepatitis for all patients aged 18 and over and those with ongoing risk factors. James Inquiry Pt receiving controlled substance: No Vital Signs: 09/13/24 13:16 09/13/24 14:00 09/13/24 15:00 Temperature 97.9 F Temperature Source Oral Pulse Rate 95 H 88 Pulse Rate [Right Radial] 87 Respiratory Rate 18 Blood Pressure 152/93 H Blood Pressure [Right Arm] 136/80 Blood Pressure Mean 112 Blood Pressure Mean [Right Arm] 98 Blood Pressure Source [Right Arm] Automatic Cuff Blood Pressure Position [Right Arm] Sitting 02 Sat by Pulse Oximetry 95 97 95 Oxygen Delivery Method Room Air Room Air Room Air 09/13/24 15:30 Temperature Temperature Source Pulse Rate 89 Pulse Rate [Right Radial] Respiratory Rate Blood Pressure Blood Pressure [Right Arm] Blood Pressure Mean Blood Pressure Mean [Right Arm] Blood Pressure Source [Right Arm] Blood Pressure Position [Right Arm] 02 Sat by Pulse Oximetry 96 Oxygen Delivery Method Room Air Lab Data Lab results reviewed: Yes I reviewed the patient's lab results. Lab Results 09/13/24 13:45: WBC 12.0 H, RBC 3.70 L, Hgb 13.3 L, Hct 38.3 L, MCV 103.5 H, MCH 35.9 H, MCHC 34.7, RDW 16.3, Plt Count 220, MPV 10.4, Neut % (Auto) 80.6 H, L ymph % (Auto) 4.4 L, Brown % (Auto) 11.1 H, Eos % (Auto) 0.2, Baso % (Auto) 1.4, Neut # (Auto) 9.7 H, Lymph # (Auto) 0.5 L, Brown # (Auto) 1.3 H, Eos # (Auto) 0.0, Baso # (Auto) 0.2, PT 22.1 H, INR 2.17 H, Sodium 138, Potassium 3.2 L, Chloride 105, Carbon Dioxide 19 L, Anion Gap 17.2 H, BUN 4 L, Creatinine 0.80, Estimated Creat Clear 131, Estimated GFR 99, Est GFR ( Amer) 120, Glucose 113 H, Calcium 8.1 L, Total Bilirubin 23.1 H* D, AST 743 H*, ALT 177 H, Alkaline Phosphatase 306 H, NT-Pro-B Natriuret Pep 46.1, Total Protein 8.3 H, Albumin 3.9, Globulin 4.4 H, Albumin/Globulin Ratio 0.9 L, Lipase 293, Plasma/Serum Alcohol 272 H 09/13/24 13:45 09/13/24 13:45 Orders (Tests/Meds): ED MEDICATIONS Generic Name Dose Route Start Last Admin Trade Name Freq PRN Reason Stop Dose Admin Lorazepam 1 mg 09/13/24 15:55 Lorazepam 2mg/Ml Vial IV 09/13/24 15:56 ONCE ONE Sodium Chloride 10 ml 09/13/24 15:55 Sodium Chloride 0.9% 10ml Vial IV 10/13/24 15:54 NEEDED PRN to Dilute Lorazepam inj Discontinued Medications Generic Name Dose Route Start Last Admin Trade Name Freq PRN Reason Stop Dose Admin Iopamidol 75 ml 09/13/24 14:33 02/10/25 14:34 Iopamidol-370 (76%);100ml Bottle IV 09/13/24 14:34 75 ml ONCE ONE Administration Sodium Chloride 10 ml 09/13/24 14:33 09/13/24 14:34 Sodium Chloride 0.9% 10ml Syr (Rad Only) IV 09/13/24 14:34 10 ml ONCE ONE Administration ORDERS Category Date Time Status CT abdomen pelvis w con Stat Cat Scan 09/13/24 14:10 Completed POCUS Point of Care (ER Only) Stat Exams 09/13/24 14:03 Completed BNP [NT Pro Brain Natriuretic Pep.] Stat Lab 09/13/24 13:45 Completed CBC w/Auto Diff [Complete Blood Count Auto Diff] Stat Lab 09/13/24 13:45 Completed CMP [Comprehensive Metabolic Panel] Stat Lab 09/13/24 13:45 Completed Ethanol [Ethyl Alcohol] Stat Lab 09/13/24 13:45 Completed Lipase Stat Lab 09/13/24 13:45 Completed PT INR [Prothrombin Time INR] Stat Lab 09/13/24 13:45 Completed UA [Urinalysis and Microscopic] Stat Lab 09/13/24 14:04 Ordered Medical Decision Narrative: 59-year-old presenting today with painless and obvious jaundice. Likely secondary to his known chronic alcoholism. Recently had a liver ultrasound which showed no hepatocellular carcinoma no ascites I performed a liver ultrasound to bedside today which did not show any ascites either. Clinically he has no evidence of other decompensating events. Likely just acute on chronic worsening of his known liver pathology associated with alcoholism. Will calculate a MELD score today. Also will get a CT scan to make sure there is no obvious malignancy given the painless jaundice. Reassessment 357 patient is starting insertion mild alcohol withdrawal symptoms Ativan IV has been administered. CIWA score still less than 8 at the moment. Alcohol level is 270 patient is actively intoxicated as well. Likely is high risk for significant withdrawal. Patient's labs significantly abnormal with a T. bili of 23 and INR 2.2 MELD score, MELD 3.0 calculated at 27 and discriminant function at 69. This is above the threshold of 32 that would benefit inpatient steroids. Patient has no evidence of decompensation CT scan was performed of the patient's abdomen which I personally interpreted shows no acute intra-abdominal pathology. I discussed the case with Dr. Fountain and we both agree that this patient needs close inpatient monitoring patient is a patient of Dr. Alvarez and I discussed the case with Dr. Sloan but given the fact that he needs close inpatient evaluation we will admit the patient to hospital medicine Dr. Sloan is agreeable to that. Spoke with Dr. Hein who also is agreeable to this plan. Will be in ICU level of care. Patient and patient's family are aware of this and agreeable to this plan as well. Patient is high risk for decompensation. Procedures Miscellaneous Procedure Procedure Performed: Limited abdominal ultrasound Indication evaluate for possible ascites Findings no evidence of ascites Images were saved Critical Care Critical Care Time Critical Care Time: Yes Attestation: On 09/13/24, the high probability of a clinically significant, sudden or life threatening deterioration of the following system(s) required my full and direct attention, intervention and personal management. The time I documented below is in addition to time spent performing reported procedures but includes the following listed in this critical care notation. Total Time Total Critical Care Time: 65
[2024-09-13 14:20] LABS: Alanine Aminotransferase 177 U/L (12-78); Albumin/Globulin Ratio 0.9 (1.1-1.8); Alkaline Phosphatase 306 U/L (38-126); Anion Gap 17.2 mEq/L (5-15); Aspartate Amino Transferase 743 U/L (17-59); Bilirubin,Total 23.1 mg/dl (0.2-1.3); Blood Urea Nitrogen 4 mg/dl (9-20); Calcium 8.1 mg/dl (8.4-10.2); Carbon Dioxide 19 mmol/L (22.0-30.0); Creatinine Clearance Estimated 131 mL/min (50-200); Estimated Glomerular Filt Rate 99 ml/min (>60); GFR (African American) 120 ML/MIN (>60); Globulin 4.4 g/dL (1.3-3.2); Glucose 113 mg/dl (74-100); Lipase 293 U/L (23-300); Total Protein,Serum 8.3 g/dl (6.3-8.2)
[2024-09-13 14:24] LABS: INR 2.17 (0.9-1.1); Prothrombin Time 22.1 seconds (9.2-12.1)
[2024-09-13 14:30] LABS: NT Pro Brain Natriuretic Pep. 46.1 pg/mL (0-125)
[2024-09-13] MEDS: IOPAMIDOL-370 (76%);100ML BOTTLE 75 ML IV (14:34)
[2024-09-13] MEDS: SODIUM CHLORIDE 0.9% 10ML SYR (RAD ONLY) 10 ML IV (14:34)
[2024-09-13 15:00] LABS: Ethyl Alcohol 272 mg/dl (0-10)
--- NOTE | 2024-09-13 15:20 | PC.NURSE ---
ROUNDED ON THE PT. THE PT VOICES THAT HE DOES NOT NEED ANYTHING AT THIS TIME. CALL LIGHT IS WITHIN REACH OF THE PT.
--- NOTE | 2024-09-13 15:25 | PC.NURSE ---
DR SINGER SPEAKING WITH DR WEINER
--- NOTE | 2024-09-13 15:44 | PC.NURSE ---
DR SINGER SPEAKING WITH DR JETER
[2024-09-13] MEDS: LORazepam 2MG/ML VIAL 1 MG IV (16:04)
--- NOTE | 2024-09-13 16:32 | EXP.HP ---
History of Present Illness *Admission Date: 09/13/24 *Reason for visit:: Abnormal liver enzymes, jaundice *History of present illness: Mr. Aguilar is a 59-year-old male who presented to the ER with abnormal liver enzymes. On arrival, patient is clearly jaundiced. Reports drinking a pint of alcohol a day. Initial labs concerning for hepatocellular injury pattern of lab abnormalities including impaired synthetic function with elevated INR of 2.17, AST of 700, jaundice of 23, and severely enlarged liver on imaging. GI was consulted and recommended admission to ICU and further management. Meld calculated at 27, Maddrey's calculated at 62. Medicine consulted for admission. Patient initiated on CIWA protocol with Ativan. High risk of decompensation. Patient denies any significant abdominal pain, nausea, vomiting, shortness of breath. Denies any blood in vomit or stool. Stools he states have been pale to white over the past few days. Poor p.o. intake. States he is lost muscle mass over the past few months. Denies fever. Reports increased fatigue over the past few weeks. Saw gastroenterology back in July and was initiated on workup for his liver dysfunction. Condition has only worsened. [facility] Disclaimer: The information contained in this section may have been updated after the patient was seen, as this information can be updated by other users. Medical History Fatigue Mass of pancreas Tick bite Myalgia Acute liver failure Acute renal failure Jaundice Mass of pancreas Alcohol abuse Hypertriglyceridemia Coronary artery disease Cirrhosis Abnormal nuclear cardiac imaging test Rhabdomyolysis Gallstones Transaminitis Hyperuricemia Hepatic steatosis Rheumatoid factor positive Abnormal stress test Edema SOB (shortness of breath) on exertion Primary hypertension Diastolic dysfunction Ex-smoker COPD (chronic obstructive pulmonary disease) GERD (gastroesophageal reflux disease) HLD (hyperlipidemia) HHD (hypertensive heart disease) Surgical History H/O removal of cyst Family History Father Cancer of heart Mother Lung cancer Colon cancer Liver cancer Mother No problems noted. Social History Smoking Status: Never smoker alcohol intake: current alcohol intake frequency: 3 or more drinks per day substance use type: denies use current occupational status: retired Travel in the last 8 weeks: None household members: spouse caffeine: No Have you lived/traveled outside US in past 30 days?: No Contact w/someone who lives/traveled outside US past 30 days?: No Exposure to someone with infectious disease in past 14 days?: No Do you have a fever (greater than 100.4 F or 38 C)?: No Have you tested positive for COVID-19: No Exposed to someone with COVID-19 in past 14 days?: No Do you have a sore throat?: No Do you have a cough?: No Do you have any weakness?: No Are you experiencing any nausea/vomitting?: No Do you have any diarrhea?: No Are you experiencing any unusual bleeding?: No Do you have any muscle aches/pain?: No Do you have any abdominal pain?: No Are you experiencing loss of taste or smell?: No Other Medical History Have you received the Flu Vaccine for this season: No Have you received the Pneumonia Vaccine: No Review of Systems Review of Systems Review of systems (narrative): 14 point review of systems performed, pertinent positives and negatives as per HPI Meds Home Medications and Allergies Home Medications ?Medication ?Instructions ?Recorded ?Confirmed ?Type testosterone 30 mg/actuation (1.5 2 pump topical DAILY hormone 01/01/22 09/13/24 History mL) transderm solution metered pump replacement omeprazole 40 mg capsule,delayed 40 mg PO BID 03/25/22 09/13/24 History release clopidogrel 75 mg tablet 75 mg PO DAILY 03/18/24 09/08/24 History diltiazem HCl 180 mg 180 mg PO BID #30 caps 05/25/24 09/13/24 Rx capsule,extended release 24 hr albuterol sulfate 90 mcg/actuation 2 puff inhalation QID PRN asthma 07/06/24 09/13/24 History aerosol inhaler potassium chloride 20 mEq 20 meq PO BID 09/13/24 09/13/24 History tablet,extended release New Prescriptions to Start Prescriptions: Allergies Allergy/AdvReac Type Severity Reaction Status Date / Time atorvastatin AdvReac Severe Unknown Verified 09/13/24 13:53 allergy reaction isosorbide AdvReac Mild Headache Verified 09/08/24 10:54 Exam Data for Last 24 hours Vital signs and Labs for Last 24 Hours: Temp Pulse Resp BP Pulse Ox O2 Del Method 97.9 F 89 18 152/93 H 96 Room Air 09/13/24 13:16 09/13/24 15:30 09/13/24 13:16 09/13/24 14:00 09/13/24 15:30 09/13/24 15:30 Laboratory Results - last 24 hr 09/13/24 13:45: WBC 12.0 H, RBC 3.70 L, Hgb 13.3 L, Hct 38.3 L, MCV 103.5 H, MCH 35.9 H, MCHC 34.7, RDW 16.3, Plt Count 220, MPV 10.4, Neut % (Auto) 80.6 H, Lymph % (Auto) 4.4 L, [place] % (Auto) 11.1 H, Eos % (Auto) 0.2, Baso % (Auto) 1.4, Neut # (Auto) 9.7 H, Lymph # (Auto) 0.5 L, [place] # (Auto) 1.3 H, Eos # (Auto) 0.0, Baso # (Auto) 0.2, PT 22.1 H, INR 2.17 H, Sodium 138, Potassium 3.2 L, Chloride 105, Carbon Dioxide 19 L, Anion Gap 17.2 H, BUN 4 L, Creatinine 0.80, Estimated Creat Clear 131, Estimated GFR 99, Est GFR ( Amer) 120, Glucose 113 H, Calcium 8.1 L, Total Bilirubin 23.1 H* D, AST 743 H*, ALT 177 H, Alkaline Phosphatase 306 H, NT-Pro-B Natriuret Pep 46.1, Total Protein 8.3 H, Albumin 3.9, Globulin 4.4 H, Albumin/Globulin Ratio 0.9 L, Lipase 293, Plasma/Serum Alcohol 272 H I & O for Last 24 hours: Intake & Output 09/10/24 09/11/24 09/12/24 09/13/24 23:59 23:59 23:59 23:59 Weight 93.44 kg Constitutional Constitutional: mild distress, average body habitus, chronically ill appearing, disheveled and cooperative *Routine HEENT Exam Head: Present normocephalic Eye: Present EOMI, PERRL and conjunctival icterus ENT: Present mucous membranes moist *Routine Neck Exam Neck: Present supple; Absent lymphadenopathy *Routine Respiratory Exam Respiratory: Present CTA bilaterally; Absent rhonchi, wheezes or crackles *Routine Cardiovascular Exam Cardiovascular: Present RRR *Routine Abdominal Exam Abdominal: Present soft, normoactive bowel sounds, tenderness (Minimal) and distended Comments: Large liver palpated in right hemiabdomen *Routine Rectal Exam Rectal:: deferred *Routine Genitalia Exam Genitalia:: deferred *Routine Extremities Exam Extremities: Absent cyanosis, clubbing or edema *Routine Skin Exam Skin: Present intact, warm and jaundice; Absent rash *Routine Neurological Exam Neurological: Present alert, oriented X3, moving all extremities, tremors and asterixis; Absent altered mental status Assessment and Plan *Assessment and plan (1) Acute alcoholic hepatitis: Status: Acute Category: Medical Code(s): K70.10 - Alcoholic hepatitis without ascites (2) Liver failure: Status: Acute Qualifiers: Hepatic coma status: without hepatic coma Liver failure chronicity: acute Qualified Code(s): K72.00 - Acute and subacute hepatic failure without coma Category: Medical Code(s): K72.90 - Hepatic failure, unspecified without coma (3) Jaundice: Status: Acute Category: Medical Code(s): R17 - Unspecified jaundice (4) Asterixis: Status: Acute Category: Medical Code(s): R27.8 - Other lack of coordination (5) Alcohol intoxication: Status: Acute Qualifiers: Complication of substance-induced condition: uncomplicated Qualified Code(s): F10.920 - Alcohol use, unspecified with intoxication, uncomplicated Category: Medical Code(s): F10.929 - Alcohol use, unspecified with intoxication, unspecified (6) Transaminitis: Status: Acute Category: Medical Code(s): R74.01 - Elevation of levels of liver transaminase levels (7) Primary hypertension: Status: Chronic Category: Medical Code(s): I10 - Essential (primary) hypertension (8) COPD (chronic obstructive pulmonary disease): Status: Chronic Qualifiers: COPD type: unspecified COPD Qualified Code(s): J44.9 - Chronic obstructive pulmonary disease, unspecified Category: Medical Code(s): J44.9 - Chronic obstructive pulmonary disease, unspecified (9) GERD (gastroesophageal reflux disease): Status: Chronic Qualifiers: Esophagitis presence: esophagitis presence not specified Qualified Code(s): K21.9 - Gastro-esophageal reflux disease without esophagitis Category: Medical Code(s): K21.9 - Gastro-esophageal reflux disease without esophagitis (10) HLD (hyperlipidemia): Status: Chronic Qualifiers: Hyperlipidemia type: mixed hyperlipidemia Qualified Code(s): E78.2 - Mixed hyperlipidemia Category: Medical Code(s): E78.5 - Hyperlipidemia, unspecified (11) Coronary artery disease: Status: Chronic Qualifiers: Associated angina: without angina Coronary Disease-Associated Artery/Lesion type: [place] artery [place] vs. transplanted heart: [place] heart Qualified Code(s): I25.10 - Atherosclerotic heart disease of [place] coronary artery without angina pectoris Category: Medical Code(s): I25.10 - Atherosclerotic heart disease of [place] coronary artery without angina pectoris (12) Coagulopathy: Status: Acute Category: Medical Code(s): D68.9 - Coagulation defect, unspecified Plan 59-year-old male who presents acutely intoxicated with acute liver failure and alcohol withdrawal. Discussed case with ER physician and GI prior to admission. Patient is critically ill. High risk for decompensation. After significant discussion, I agreed to admit to ICU for further management and treatment of his acute organ dysfunction. Patient's prognosis is poor. Necessitating ICU level care. Problems addressed as follows: Acute alcoholic hepatitis (severe) Acute liver failure -Maddrey's discriminant function of 62.4, MELD score 27. Confer poor prognosis and 20% 3-month mortality -Alcohol level still elevated 272 - Noted to have anion gap of 17. Potassium low at 3.2. AST elevated at 743, ALT 177, alk phos 306. -Review of chart shows liver tests from July with GGT 3444, Discussed case with GI. In the setting of patient's acute alcoholic hepatitis, recommend initiating methylprednisolone 40 mg daily for 28 days. Initiation of acetylcysteine 6 g orally for the first 5 days. -Initiate vitamin K 10 mg IV daily for 3 days -Ammonia level 62, will initiate Xifaxan 550 mg 3 times a day empirically for component of encephalopathy given asterixis on exam. - patient admitted to ICU for further management due to high risk for decompensation. -Per my review of CT of abdomen, patient has severely enlarged liver, no appreciable varices however. No ascites. -Repeat CBC, CMP, magnesium, INR/PT, phosphorus ordered daily -Nutrition consulted to assist with dietary recommendations and risk for malnutrition. Patient at risk for refeeding syndrome. Recommend boost/protein supplement with trays -Peers direct support staff member consulted Alcohol withdrawal -Acutely intoxicated with alcohol level of 272. Initiated on CIWA protocol with lorazepam due to acute liver injury. Will hold on phenobarbital due to contraindication in acute liver failure. -Multivitamin with supplementation including folate and thiamine daily. Rally pack daily. -Seizure precautions Hypertension: Diltiazem 180 mg extended release twice daily COPD: On room air. Initiate DuoNebs every 6 hours prn. Goal sats greater 90%. In no acute exacerbation at this time GERD: Continue pantoprazole as formulary conversion 40 mg twice daily Full code Anticoagulation contraindicated given coagulopathy and INR of 2.2 Regular diet with protein supplementation ICU/Critical care attestation This patient is critically ill with 45 minutes devoted solely to this patient managing life/organ supporting interventions that required physician assessment. This includes time spent making adjustments in ventilator settings, IV fluid administration, titration of pressors, adjustments of medications, discussion of patient with consultants and other care providers as well as updating patient and/or family (if patient by virtue of his/her condition is unable to participate in decision making). This does not include time spent performing separately billed procedures. Time is not concurrent with that of other providers.
--- NOTE | 2024-09-13 17:09 | PC.NURSE ---
Dr. Fountain at bedside
--- NOTE | 2024-09-13 17:11 | PC.NURSE ---
Gave report to Nanci SOSA in [facility]
--- NOTE | 2024-09-13 17:34 | EXP.HP ---
History of Present Illness *Admission Date: 09/13/24 *History of present illness: Mr. Aguilar is a 59-year-old gentleman who is admitted for severe acute alcoholic hepatitis. The patient at 1 point was drinking 1/5 of alcohol daily and has admitted more recently when he saw Nichelle MERLSO in the office to drinking 16 ounces of hard liquor daily. The patient has started and stopped drinking multiple times but has never had complete abstinence. He does have multiple family members that drank heavy alcohol but no one has had cirrhosis or liver cancer. He does have a family history of colon cancer. He did have a CAT scan recently that showed hepatic steatosis. He also had an endoscopic ultrasound at the [facility] because of a submucosal lesion that was identified to be a lipoma. The patient had been seen by primary care today (Dr. Inderjit Alvarez) and initially contacted us. He was later sent to the emergency department. He reports no abdominal pain or mental status changes. He has had no hematochezia or melena. On examination in the ER, his MELD was calculated at 27 with a Madrey discriminant function at 69. His alcohol level was 270 and he was actively intoxicated. His abdominal CAT scan did not show significant portal hypertension. [facility] Disclaimer: The information contained in this section may have been updated after the patient was seen, as this information can be updated by other users. Medical History (Updated 09/13/24 @ 17:39 by Walter Fountain II, MD) Fatigue Mass of pancreas Tick bite Myalgia Acute liver failure Acute renal failure Jaundice Mass of pancreas Alcohol abuse Hypertriglyceridemia Coronary artery disease Cirrhosis Abnormal nuclear cardiac imaging test Rhabdomyolysis Gallstones Transaminitis Hyperuricemia Hepatic steatosis Rheumatoid factor positive Abnormal stress test Edema SOB (shortness of breath) on exertion Primary hypertension Diastolic dysfunction Ex-smoker COPD (chronic obstructive pulmonary disease) GERD (gastroesophageal reflux disease) HLD (hyperlipidemia) HHD (hypertensive heart disease) Surgical History H/O removal of cyst Family History Father Cancer of heart Mother Lung cancer Colon cancer Liver cancer Mother No problems noted. Social History Smoking Status: Never smoker alcohol intake: current alcohol intake frequency: 3 or more drinks per day substance use type: denies use current occupational status: retired Travel in the last 8 weeks: None household members: spouse caffeine: No Have you lived/traveled outside [place] in past 30 days?: No Contact w/someone who lives/traveled outside US past 30 days?: No Exposure to someone with infectious disease in past 14 days?: No Do you have a fever (greater than 100.4 F or 38 C)?: No Have you tested positive for COVID-19: No Exposed to someone with COVID-19 in past 14 days?: No Do you have a sore throat?: No Do you have a cough?: No Do you have any weakness?: No Do you have any diarrhea?: No Are you experiencing any unusual bleeding?: No Do you have any muscle aches/pain?: No Do you have any abdominal pain?: No Are you experiencing loss of taste or smell?: No Other Medical History Have you received the Flu Vaccine for this season: No Have you received the Pneumonia Vaccine: No Meds Home Medications and Allergies Home Medications ?Medication ?Instructions ?Recorded ?Confirmed ?Type testosterone 30 mg/actuation (1.5 2 pump topical DAILY hormone 01/01/22 09/13/24 History mL) transderm solution metered pump replacement omeprazole 40 mg capsule,delayed 40 mg PO BID 03/25/22 09/13/24 History release clopidogrel 75 mg tablet 75 mg PO DAILY 03/18/24 09/08/24 History diltiazem HCl 180 mg 180 mg PO BID #30 caps 05/25/24 09/13/24 Rx capsule,extended release 24 hr albuterol sulfate 90 mcg/actuation 2 puff inhalation QID PRN asthma 07/06/24 09/13/24 History aerosol inhaler New Prescriptions to Start Prescriptions: Allergies Allergy/AdvReac Type Severity Reaction Status Date / Time atorvastatin AdvReac Severe Unknown Verified 09/13/24 13:53 allergy reaction isosorbide AdvReac Mild Headache Verified 09/08/24 10:54 Exam Data for Last 24 hours Vital signs and Labs for Last 24 Hours: Temp Pulse Resp BP Pulse Ox O2 Del Method 98.0 F 73 20 162/89 H 96 Room Air 09/13/24 17:14 09/13/24 17:19 09/13/24 17:14 09/13/24 17:19 09/13/24 17:19 09/13/24 17:19 Laboratory Results - last 24 hr 09/13/24 13:45: WBC 12.0 H, RBC 3.70 L, Hgb 13.3 L, Hct 38.3 L, MCV 103.5 H, MCH 35.9 H, MCHC 34.7, RDW 16.3, Plt Count 220, MPV 10.4, Neut % (Auto) 80.6 H, Lymph % (Auto) 4.4 L, [place] % (Auto) 11.1 H, Eos % (Auto) 0.2, Baso % (Auto) 1.4, Neut # (Auto) 9.7 H, Lymph # (Auto) 0.5 L, [place] # (Auto) 1.3 H, Eos # (Auto) 0.0, Baso # (Auto) 0.2, PT 22.1 H, INR 2.17 H, Sodium 138, Potassium 3.2 L, Chloride 105, Carbon Dioxide 19 L, Anion Gap 17.2 H, BUN 4 L, Creatinine 0.80, Estimated Creat Clear 131, Estimated GFR 99, Est GFR ( Amer) 120, Glucose 113 H, Calcium 8.1 L, Total Bilirubin 23.1 H* D, AST 743 H*, ALT 177 H, Alkaline Phosphatase 306 H, NT-Pro-B Natriuret Pep 46.1, Total Protein 8.3 H, Albumin 3.9, Globulin 4.4 H, Albumin/Globulin Ratio 0.9 L, Lipase 293, Plasma/Serum Alcohol 272 H I & O for Last 24 hours: Intake & Output 09/10/24 09/11/24 09/12/24 09/13/24 23:59 23:59 23:59 23:59 Weight 206 lb *Routine HEENT Exam Head: Present normocephalic Eye: Present EOMI ENT: Present mucous membranes moist *Routine Respiratory Exam Respiratory: Present other *Routine Cardiovascular Exam Cardiovascular: Present RRR *Routine Abdominal Exam Abdominal: Present normoactive bowel sounds and organomegaly Comments: Markedly enlarged liver at least 5 fingerbreadths below the right costal margin with splenomegaly, minimal tenderness, no ballotable liver, mild asterixis *Routine Rectal Exam Rectal:: no hemorrhoids *Routine Genitalia Exam Genitalia:: normal male Assessment and Plan *Assessment and plan (1) Acute alcoholic hepatitis: Status: Acute Category: Medical Code(s): K70.10 - Alcoholic hepatitis without ascites (2) Jaundice: Status: Acute Category: Medical Code(s): R17 - Unspecified jaundice (3) Asterixis: Status: Acute Category: Medical Code(s): R27.8 - Other lack of coordination (4) Liver failure: Status: Acute Category: Medical Code(s): K72.90 - Hepatic failure, unspecified without coma Plan 1. Acute alcoholic hepatitis (severe) with Madrey discriminant function 69 and MELD score 27. I am going to initiate prednisolone/methylprednisolone 40 mg daily for 28 days. I would recommend acetylcysteine or N-acetylcysteine for the first 5 days orally. Early mortality is diminished with combination prednisolone and N-acetylcysteine early as compared to methylprednisolone alone. Primarily, nutrition is very important factor even early on and I would stress protein calorie nutrition with supplementation. I would recommend all measures for his alcohol dependence with alcohol use disorder and have discussed this with Dr. Hein. He will need outpatient alcohol rehabilitation and must stay committed to this. The patient does not have significant portal hypertension on imaging. I would recommend consideration of EGD while he is here. I would also consider doing colonoscopy (because of strong family history and no prior screening. I would check ammonia levels and monitor daily to see decline in bilirubin and transaminases. Certainly if there is greater risk with decompensation secondary to variceal bleeding or hepatic encephalopathy, he would need to be in a tertiary center with liver transplant capability. I would recommend vitamin K daily for 3 days.
[2024-09-13] MEDS: PHYTONADIONE 10 MG in 0.9 % SODIUM CHLORIDE 50 ML 100 MG IV (17:50)
[2024-09-13] MEDS: ACETYLCYSTEINE 20% 30ML BOTTLE 6000 MG PO (17:51)
--- NOTE | 2024-09-13 18:25 | PC.NURSE ---
Verified with Dr. Hein and Maria, RN 40 mg methylpredinisone given po.
[2024-09-13] MEDS: LORazepam 1MG TABLET 1 MG PO ×2 (18:34→22:06)
[2024-09-13 19:32] LABS: Ammonia 64 umol/L (9-30)
[2024-09-13 19:41] LABS: Microscopic, Urine URINE MICROSCOPIC (MICROSCOPIC)
[2024-09-13 19:55] LABS: Blood, Urine TRACE-I (Negative); Color,Urine AMBER (Yellow); Glucose,Urine (UA) TRACE (Negative); Ketones,Urine Negative (Negative); Leukocyte Esterase,Urine Negative (Negative); Nitrate,Urine Negative (Negative); PH,Urine 6.5 (5.0-8.5); Protein,Urine 2+ (Negative); Specific Gravity, Urine 1.015 (1.005-1.030); Urobilinogen,Urine 0.2 EU/dl (0.2)
[2024-09-13 19:57] LABS: Appearance,Urine Cloudy (Clear); Bilirubin,Urine 3+ (Negative)
[2024-09-13] MEDS: PANTOPRAZOLE 40MG VIAL 40 MG IV (20:34)
[2024-09-13] MEDS: dilTIAZem HCL 180MG CAP.ER.24H 180 MG PO (20:34)
[2024-09-13 22:14] LABS: Bacteria,Urine 1+ /lpf
[2024-09-14] VITALS (35 sets, daily range): BP systolic 108–161; BP diastolic 58–99; PULSE 96–120; RESP 13–23; TEMP 36.4–36.6; O2SAT 86–95; BMI 27.8
[2024-09-14] MEDS: LORazepam 1MG TABLET 1 MG PO ×2 (02:43→04:38)
[2024-09-14 06:33] LABS: Basophils # 0.1 K/mm3 (0-0.2); Basophils % 0.6 % (0.1-2.0); Hematocrit 34.3 % (42.0-52.0); Hemoglobin 12.2 g/dL (14.1-18.0); Lymphocytes # 0.4 K/mm3 (0.7-4.5); Lymphocytes % 3.2 % (10-50); Mean Corpuscular HGB Conc 35.6 g/dL (31.8-35.4); Mean Corpuscular Hemoglobin 36.4 pg (27.0-31.2); Mean Corpuscular Volume 102.4 fl (80-94); Mean Platelet Volume 10.8 fl (7.4-10.4); Monocytes # 0.6 K/mm3 (0.1-1.0); Neutrophils # 10.1 K/mm3 (1.8-7.8); Neutrophils % 88.9 % (37.0-80.0); Platelet Count 202 K/mm3 (142-424); Red Blood Count 3.35 M/mm3 (4.60-6.20); Red Cell Distribution Width 16.1 % (11.5-17.5); White Blood Count 11.3 K/mm3 (4.8-10.8)
[2024-09-14 06:34] LABS: Albumin Level 3.6 g/dl (3.5-5.0); Chloride 103 mmol/L (98-107); Sodium 134 mmol/L (136-145)
[2024-09-14 06:35] LABS: Potassium 3.1 mmoL/L (3.5-5.1)
[2024-09-14 06:36] LABS: INR 1.46 (0.9-1.1); Prothrombin Time 15.5 seconds (9.2-12.1)
[2024-09-14 06:37] LABS: Alanine Aminotransferase 156 U/L (12-78); Albumin/Globulin Ratio 0.9 (1.1-1.8); Alkaline Phosphatase 276 U/L (38-126); Anion Gap 17.1 mEq/L (5-15); Aspartate Amino Transferase 627 U/L (17-59); Bilirubin,Total 21.7 mg/dl (0.2-1.3); Blood Urea Nitrogen 4 mg/dl (9-20); Carbon Dioxide 17 mmol/L (22.0-30.0); Creatinine Clearance Estimated 150 mL/min (50-200); Estimated Glomerular Filt Rate 115 ml/min (>60); GFR (African American) 140 ML/MIN (>60); Globulin 3.9 g/dL (1.3-3.2); Total Protein,Serum 7.5 g/dl (6.3-8.2)
[2024-09-14 06:38] LABS: Calcium 7.9 mg/dl (8.4-10.2); Glucose 133 mg/dl (74-100); Magnesium 1.2 mg/dl (1.6-2.3)
[2024-09-14] MEDS: IPRATROPIUM/ALBUTEROL 3 ML NEB IH ×3 (06:45→18:57)
[2024-09-14 07:10] LABS: Phosphorous 1.5 mg/dl (2.5-4.5)
--- NOTE | 2024-09-14 07:55 | EXP.PN ---
Subjective *Date: 09/14/24 *Time: 07:55 Interval history: Patient awake and alert this morning but has moderate tremulousness/shakiness and probable some withdrawal symptoms. He is alert and oriented. He is eating breakfast. He reports no abdominal complaints. Exam Data for Last 24 hours Vital signs and Labs for Last 24 Hours: Temp Pulse Resp BP Pulse Ox O2 Del Method 98.4 F 103 H 20 129/80 92 L Room Air 09/13/24 23:36 09/14/24 06:59 09/14/24 06:00 09/14/24 07:00 09/14/24 06:59 09/14/24 07:00 Laboratory Results - last 24 hr 09/13/24 13:45: WBC 12.0 H, RBC 3.70 L, Hgb 13.3 L, Hct 38.3 L, MCV 103.5 H, MCH 35.9 H, MCHC 34.7, RDW 16.3, Plt Count 220, MPV 10.4, Neut % (Auto) 80.6 H, Lymph % (Auto) 4.4 L, [place] % (Auto) 11.1 H, Eos % (Auto) 0.2, Baso % (Auto) 1.4, Neut # (Auto) 9.7 H, Lymph # (Auto) 0.5 L, [place] # (Auto) 1.3 H, Eos # (Auto) 0.0, Baso # (Auto) 0.2, PT 22.1 H, INR 2.17 H, Sodium 138, Potassium 3.2 L, Chloride 105, Carbon Dioxide 19 L, Anion Gap 17.2 H, BUN 4 L, Creatinine 0.80, Estimated Creat Clear 131, Estimated GFR 99, Est GFR ( Amer) 120, Glucose 113 H, Calcium 8.1 L, Total Bilirubin 23.1 H* D, AST 743 H*, ALT 177 H, Alkaline Phosphatase 306 H, NT-Pro-B Natriuret Pep 46.1, Total Protein 8.3 H, Albumin 3.9, Globulin 4.4 H, Albumin/Globulin Ratio 0.9 L, Lipase 293, Plasma/Serum Alcohol 272 H 09/13/24 18:35: Ammonia 64 H 09/13/24 19:36: Urine Color Misa, Urine Appearance Cloudy, Urine pH 6.5, Ur Specific [place] 1.015, Urine Protein 2+ A, Urine Glucose (UA) Trace, Urine Ketones Negative, Urine Blood Trace-i, Urine Nitrate Negative, Urine Bilirubin 3+ A, Urine Urobilinogen 0.2, Ur Leukocyte Esterase Negative, Urine RBC None, Urine WBC 5-10, Ur Squamous Epith Cells None, Urine Bacteria 1+ 09/14/24 05:38: WBC 11.3 H, RBC 3.35 L, Hgb 12.2 L, Hct 34.3 L, MCV 102.4 H, MCH 36.4 H, MCHC 35.6 H, RDW 16.1, Plt Count 202, MPV 10.8 H, Neut % (Auto) 88.9 H, Lymph % (Auto) 3.2 L, [place] % (Auto) 5.0, Eos % (Auto) 0.0 L, Baso % (Auto) 0.6, Neut # (Auto) 10.1 H, Lymph # (Auto) 0.4 L, [place] # (Auto) 0.6, Eos # (Auto) 0.0, Baso # (Auto) 0.1, PT 15.5 H, INR 1.46 H, Sodium 134 L, Potassium 3.1 L, Chloride 103, Carbon Dioxide 17 L, Anion Gap 17.1 H, BUN 4 L, Creatinine 0.70, Estimated Creat Clear 150, Estimated GFR 115, Est GFR ( Amer) 140, Glucose 133 H, Calcium 7.9 L, Phosphorus 1.5 L, Magnesium 1.2 L, Total Bilirubin 21.7 H*, AST 627 H*, ALT 156 H, Alkaline Phosphatase 276 H, Total Protein 7.5, Albumin 3.6, Globulin 3.9 H, Albumin/Globulin Ratio 0.9 L I & O for Last 24 hours: Intake & Output 09/11/24 09/12/24 09/13/24 09/14/24 23:59 23:59 23:59 23:59 Intake Total 240 / 240 Output Total 570 / 570 600 / 600 Balance -570 / -330 -360 / -360 Weight 208 lb 8.984 oz 205 lb 4.8 oz *Routine Abdominal Exam Abdominal: Present normoactive bowel sounds, firm and organomegaly Comments: Marked hepatomegaly Assessment and Plan *Assessment and plan (1) Acute alcoholic hepatitis: Status: Acute Category: Medical Code(s): K70.10 - Alcoholic hepatitis without ascites (2) Liver failure: Status: Acute Qualifiers: Liver failure chronicity: acute Hepatic coma status: without hepatic coma Qualified Code(s): K72.00 - Acute and subacute hepatic failure without coma Category: Medical Code(s): K72.90 - Hepatic failure, unspecified without coma (3) Jaundice: Status: Acute Category: Medical Code(s): R17 - Unspecified jaundice (4) Alcohol withdrawal syndrome: Status: Acute Category: Medical Code(s): F10.939 - Alcohol use, unspecified with withdrawal, unspecified Plan 1. Severe acute alcoholic hepatitis with Madrey discriminant function of 69. He is on methylprednisolone and acetylcysteine. Certainly nutrition plays a significant role and would encourage nutritional support. Patient eating very well this morning. In terms of alcohol withdrawal, he is getting benzodiazepines but we may need to titrate upwards depending on clinical symptoms. We will follow labs and MELD score. His hemoglobin/hematocrit are stable today (12.2 and 34.3) with very minimal decline. His coags today are improved with PT 1.46 (from 2.17) and vitamin K was administered with appropriate improvement. Additionally, his total bilirubin today was lower at 21.7 along with mild improvement of transaminases and alkaline phosphatase. I would consider EGD to assess for portal hypertension perhaps on . We will give additional support of his severe acute alcoholic hepatitis and withdrawal symptoms prior to doing since there is no evidence of any GI bleeding. It is variceal bleeding that is one of the significant risks and severe acute alcoholic hepatitis. Given the fact that his bilirubin and transaminases are improving, I feel that we may be averting risk of acute hepatic failure.
--- NOTE | 2024-09-14 08:18 | PC.NURSE ---
pt vomited large amount of emesis after breakfast and is currently dry heaving. no PRN meds for nausea on OCT this time. Called and notified hospitalist for new med orders.
[2024-09-14] MEDS: ONDANSETRON 4MG/2ML VIAL 4 MG IV (08:26)
[2024-09-14] MEDS: LORazepam 2MG/ML VIAL 1 MG IV ×3 (08:26→17:56)
[2024-09-14] MEDS: MAGNESIUM SULFATE IN WATER 2 GM/50 ML PIGGYBACK IV (08:26)
[2024-09-14] MEDS: SODIUM CHLORIDE 0.9% 10ML VIAL 10 ML IV ×5 (08:28→20:31)
[2024-09-14 09:03] LABS: Lactic Acid 2.7 mmol/L (0.7-2.1)
[2024-09-14 09:04] LABS: Procalcitonin 1.13 ng/mL (0.0-2.0)
[2024-09-14] MEDS: FOLIC ACID 1MG TABLET 1 MG PO (09:22)
[2024-09-14] MEDS: guaiFENesin 600 MG TAB.ER.12H PO ×2 (09:23→20:31)
[2024-09-14] MEDS: dilTIAZem HCL 180MG CAP.ER.24H 180 MG PO ×2 (09:24→20:31)
[2024-09-14] MEDS: THIAMINE 100MG TABLET 100 MG PO (09:24)
[2024-09-14] MEDS: RIFAXIMIN 550MG TABLET 550 MG PO ×3 (09:24→20:31)
[2024-09-14] MEDS: PANTOPRAZOLE 40MG VIAL 40 MG IV ×2 (09:25→20:31)
[2024-09-14] MEDS: POTASSIUM PHOS IN 0.9 % NACL 15 MMOL/250 ML PIGGYBACK 62.5 MMOL IV (09:27)
[2024-09-14] MEDS: PHYTONADIONE 10 MG in 0.9 % SODIUM CHLORIDE 50 ML 100 MG IV (09:48)
--- NOTE | 2024-09-14 10:15 | PC.NURSE ---
at bedside and ordered to hold maintenance fluids at this time due to the potential of fluid overload
--- NOTE | 2024-09-14 10:15 | PC.NURSE ---
Hospitalist notified pt is currently reporting an increase in SOB. Verbal order given for portable chest xray, order placed and RAD called and notified.
--- NOTE | 2024-09-14 10:18 | XR_ITS ---
FINAL REPORT CLINICAL HISTORY: SOB COMPARISON: 05/23/2021 FINDINGS: No acute pulmonary opacity is present. There is no evidence of effusion or pneumothorax. Mediastinum is unremarkable. Heart size is normal. IMPRESSION: No acute abnormality. Reviewed, Interpreted and Dictated by Kofi Parada MD Transcribed by Eda Mendenhall Authenticated and [facility]
[2024-09-14 11:03] LABS: Folate 2.41 ng/mL
--- NOTE | 2024-09-14 12:39 | PC.NURSE ---
this nurse and KFizette at bedside after hearing the patient dry heave. On arrival to the room the pt is layign flat and vomiting. pt rolled over onto his right side and suctioned with yonker. pt is alert and oriented but anxious/restless on appearance and now drenched in sweat. pt reports extreme nausea and that the previous medication didnt give him long enough relief. pt CIWA is a 22 at this time. Hospitalist notified of emesis episode at this and drastic change in CIWA score. MD reported to go ahead and give the 2mg PRN ativan and that he would order some different PRN meds as well.
[2024-09-14] MEDS: LORazepam 2MG/ML VIAL 2 MG IV ×2 (12:42→20:31)
[2024-09-14 12:49] LABS: Reflex Lactic Add Lactic Reflex
--- NOTE | 2024-09-14 12:49 | PC.NURSE ---
pt head of bed is at 30 degrees per aspiration protocol. pt was placed on his right side as well. seizure pads are in place and bed alarm is on. call light is within reach.
--- NOTE | 2024-09-14 12:59 | PC.NURSE ---
Consulted provider about the pts fluids on hold and chest xray due to potential sepsis risk. pt currently meets multiple criteria for sepsis but still doesnt have a documented source. stated he would review xray and pt labs. No new orders at this time.
[2024-09-14] MEDS: PROCHLORPERAZINE 10MG/2ML VIAL 10 MG IV (13:04)
--- NOTE | 2024-09-14 13:10 | DIET.NUTRFU ---
RD consulted for possible malnutrition. Spoke to nursing who reported he vomited most of breakfast and boost up. Had a visitor when on unit, will try again as patient feels better
[2024-09-14 13:30] LABS: Lactic Acid Follow Up (RFLX 1) 2.9 mmol/L (0.7-2.1)
--- NOTE | 2024-09-14 14:03 | PC.NURSE ---
Spoke with MD about pts decrease in urinary output this shift. He instructed to bladder scan the pt when he wakes up and to continue holding the maintenance fluid at this time. MD also ordered gabapentin to administer when the pt wakes up as well.
[2024-09-14] MEDS: GABAPENTIN 300MG CAPSULE 300 MG PO ×2 (14:57→20:31)
[2024-09-14 15:04] LABS: Reflex Lactic (2 hrs) Add Lactic Reflex
--- NOTE | 2024-09-14 15:05 | PC.NURSE ---
Bladder scanner showed pt to have >650ml urine retained. MD notified and ordered for an in and out cath at this time. pt tolerated 14fr in and out cath and had 1050ml of urine output. MD notified of output as well.
[2024-09-14 16:08] LABS: Albumin Level 3.6 g/dl (3.5-5.0); Chloride 103 mmol/L (98-107); Sodium 134 mmol/L (136-145)
[2024-09-14 16:11] LABS: Alanine Aminotransferase 156 U/L (12-78); Albumin/Globulin Ratio 0.9 (1.1-1.8); Alkaline Phosphatase 219 U/L (38-126); Anion Gap 15.9 mEq/L (5-15); Aspartate Amino Transferase 560 U/L (17-59); Blood Urea Nitrogen 6 mg/dl (9-20); Calcium 7.9 mg/dl (8.4-10.2); Carbon Dioxide 18 mmol/L (22.0-30.0); Creatinine Clearance Estimated 150 mL/min (50-200); Estimated Glomerular Filt Rate 115 ml/min (>60); GFR (African American) 140 ML/MIN (>60); Glucose 172 mg/dl (74-100); Lactic Acid Follow up (RFLX 2) 2.4 mmol/L (0.7-2.1); Total Protein,Serum 7.6 g/dl (6.3-8.2)
--- NOTE | 2024-09-14 16:11 | PC.NURSE ---
Reported critical K+, Billirubin and AST to Dr. Kim at this time. pt name, and results verified and repeated back.
[2024-09-14 16:12] LABS: Bilirubin,Total > 27.0 mg/dl (0.2-1.3)
[2024-09-14 16:13] LABS: Potassium 2.9 mmoL/L (3.5-5.1)
--- NOTE | 2024-09-14 16:28 | PEERSUPPORT ---
Peer Support Note Patient Information Patient Information: DOS: 09/14/2024 ? Reason: ETOH/AUD Ps consult ? Pt is in ICU, resting for the first time since admission.? Ps and nurse Maria Do discussed status of patient with plan to allow rest and will contact ps when pt is awake and more stable. Ps follow up at bedside in ICU. Pt still resting following comfort meds given. Ps will follow up in the am. ?
[2024-09-14] MEDS: TAMSULOSIN 0.4MG CAPSULE 0.4 MG PO (16:40)
[2024-09-14] MEDS: KCl 20mEq/100ml 100 ML 50 MEQ IV ×2 (16:40→17:50)
[2024-09-14] MEDS: MULTIVITAMIN TABLET 1 EACH PO (16:43)
[2024-09-14 18:01] LABS: Bilirubin,Direct 21.9 mg/dl (0.0-0.4); Gamma Glutamyl Transpeptidase 542 U/L (15-73); Lactate Dehydrogenase 320 U/L (313-618); Magnesium 1.6 mg/dl (1.6-2.3)
--- NOTE | 2024-09-14 21:04 | EXP.PN ---
Subjective *Date: 09/14/24 *Time: 21:04 Interval history: Patient continues to be in and out of mentation, likely secondary to alcohol intoxication, withdrawal, hepatic encephalopathy. Does have elevated direct bilirubin, GGT with total bili increasing. Follow-up morning RUQ ultrasound to evaluate for ductal pathology. Exam Data for Last 24 hours Vital signs and Labs for Last 24 Hours: Temp Pulse Resp BP Pulse Ox O2 Del Method O2 Flow Rate 97.9 F 120 H 20 125/78 93 L Nasal Cannula 2 09/14/24 20:00 09/14/24 20:00 09/14/24 20:00 09/14/24 20:00 09/14/24 20:00 09/14/24 20:00 09/14/24 20:00 Laboratory Results - last 24 hr 09/13/24 19:36: Urine RBC None, Urine WBC 5-10, Ur Squamous Epith Cells None, Urine Bacteria 1+ 09/14/24 05:38: WBC 11.3 H, RBC 3.35 L, Hgb 12.2 L, Hct 34.3 L, MCV 102.4 H, MCH 36.4 H, MCHC 35.6 H, RDW 16.1, Plt Count 202, MPV 10.8 H, Neut % (Auto) 88.9 H, Lymph % (Auto) 3.2 L, [place] % (Auto) 5.0, Eos % (Auto) 0.0 L, Baso % (Auto) 0.6, Neut # (Auto) 10.1 H, Lymph # (Auto) 0.4 L, [place] # (Auto) 0.6, Eos # (Auto) 0.0, Baso # (Auto) 0.1, PT 15.5 H, INR 1.46 H, Sodium 134 L, Potassium 3.1 L, Chloride 103, Carbon Dioxide 17 L, Anion Gap 17.1 H, BUN 4 L, Creatinine 0.70, Estimated Creat Clear 150, Estimated GFR 115, Est GFR ( Amer) 140, Glucose 133 H, Calcium 7.9 L, Phosphorus 1.5 L, Magnesium 1.2 L, Total Bilirubin 21.7 H*, AST 627 H*, ALT 156 H, Alkaline Phosphatase 276 H, Total Protein 7.5, Albumin 3.6, Globulin 3.9 H, Albumin/Globulin Ratio 0.9 L, Procalcitonin 1.13 09/14/24 08:30: Lactate 2.7 H, Folate 2.41 09/14/24 13:00: Lactate 2.9 H 09/14/24 15:55: Sodium 134 L, Potassium 2.9 L*, Chloride 103, Carbon Dioxide 18 L, Anion Gap 15.9 H, BUN 6 L D, Creatinine 0.70, Estimated Creat Clear 150, Estimated GFR 115, Est GFR ( Amer) 140, Glucose 172 H D, Lactate 2.4 H, Calcium 7.9 L, Total Bilirubin > 27.0 H* D, AST 560 H*, ALT 156 H, Alkaline Phosphatase 219 H, Total Protein 7.6, Albumin 3.6, Globulin 4.0 H, Albumin/Globulin Ratio 0.9 L 09/14/24 17:19: Magnesium 1.6 D, Direct Bilirubin 21.9 H, GGT 542 H, Lactate Dehydrogenase 320 I & O for Last 24 hours: Intake & Output 09/11/24 09/12/24 09/13/24 09/14/24 23:59 23:59 23:59 23:59 Intake Total 830 / 830 Output Total 570 / 570 1650 / 1650 Balance -570 / -330 -820 / -820 Weight 94.602 kg 93.123 kg Constitutional Constitutional: no acute distress Comments: Jaundiced. *Routine HEENT Exam Head: Present normocephalic Eye: Present EOMI and PERRL ENT: Present mucous membranes moist *Routine Neck Exam Neck: Present supple; Absent lymphadenopathy *Routine Respiratory Exam Respiratory: Present CTA bilaterally *Routine Cardiovascular Exam Cardiovascular: Present RRR *Routine Abdominal Exam Abdominal: Present normoactive bowel sounds, firm and organomegaly Comments: Marked hepatomegaly *Routine Extremities Exam Extremities: Absent cyanosis, clubbing or edema *Routine Skin Exam Skin: Present warm; Absent rash *Routine Neurological Exam Neurological: Present alert Assessment and Plan *Assessment and plan (1) Acute alcoholic hepatitis: Status: Acute Category: Medical Code(s): K70.10 - Alcoholic hepatitis without ascites (2) Liver failure: Status: Acute Qualifiers: Liver failure chronicity: acute Hepatic coma status: without hepatic coma Qualified Code(s): K72.00 - Acute and subacute hepatic failure without coma Category: Medical Code(s): K72.90 - Hepatic failure, unspecified without coma (3) Jaundice: Status: Acute Category: Medical Code(s): R17 - Unspecified jaundice (4) Asterixis: Status: Acute Category: Medical Code(s): R27.8 - Other lack of coordination (5) Alcohol intoxication: Status: Acute Qualifiers: Complication of substance-induced condition: uncomplicated Qualified Code(s): F10.920 - Alcohol use, unspecified with intoxication, uncomplicated Category: Medical Code(s): F10.929 - Alcohol use, unspecified with intoxication, unspecified (6) Transaminitis: Status: Acute Category: Medical Code(s): R74.01 - Elevation of levels of liver transaminase levels (7) Primary hypertension: Status: Chronic Category: Medical Code(s): I10 - Essential (primary) hypertension (8) COPD (chronic obstructive pulmonary disease): Status: Chronic Qualifiers: COPD type: unspecified COPD Qualified Code(s): J44.9 - Chronic obstructive pulmonary disease, unspecified Category: Medical Code(s): J44.9 - Chronic obstructive pulmonary disease, unspecified (9) GERD (gastroesophageal reflux disease): Status: Chronic Qualifiers: Esophagitis presence: esophagitis presence not specified Qualified Code(s): K21.9 - Gastro-esophageal reflux disease without esophagitis Category: Medical Code(s): K21.9 - Gastro-esophageal reflux disease without esophagitis (10) HLD (hyperlipidemia): Status: Chronic Qualifiers: Hyperlipidemia type: mixed hyperlipidemia Qualified Code(s): E78.2 - Mixed hyperlipidemia Category: Medical Code(s): E78.5 - Hyperlipidemia, unspecified (11) Coronary artery disease: Status: Chronic Qualifiers: Coronary Disease-Associated Artery/Lesion type: [place] artery [place] vs. transplanted heart: [place] heart Associated angina: without angina Qualified Code(s): I25.10 - Atherosclerotic heart disease of [place] coronary artery without angina pectoris Category: Medical Code(s): I25.10 - Atherosclerotic heart disease of [place] coronary artery without angina pectoris (12) Coagulopathy: Status: Acute Category: Medical Code(s): D68.9 - Coagulation defect, unspecified Plan Pritesh Burns is a 59-year-old male who presented acutely intoxicated with acute liver failure and alcohol withdrawal. Discussed case with ER physician and GI prior to admission. Patient is critically ill. High risk for decompensation. #Acute alcoholic hepatitis (severe) #Acute liver failure #Alcohol intoxication #High anion gap metabolic acidosis #Hepatic metabolic encephalopathy - Maddrey's discriminant function of 62.4, MELD score 27. Confer poor prognosis and 20% 3-month mortality. Per my review of CT of abdomen, patient has severely enlarged liver, no appreciable varices however. No ascites. - Initial alcohol level elevated 272. AGAP improving from 17.2 to 15.9. ? Presented with transaminitis, AST/ALT/ALP/bili 743/177/306/23. Hepatitis panel normal. ? Transaminitis did improve, AST/ALT/ALP/bili 560/156/219/27. However, total bilirubin bumped to greater than 27. ? Direct bilirubin elevated 29.1, GGT 542 suggesting ductal pathology. Low concern for intravascular hemolysis given normal LDH, pending haptoglobin. ? Follow-up RUQ ultrasound to further evaluate for ductal pathology. N.p.o. at midnight. ? Continue Solu-Medrol 40 mg daily, orally for first-pass metabolism through the liver. Can consider IV if not tolerating oral due to nausea/vomiting. ? Continue Compazine as needed for nausea/vomiting. ? Discussed case with GI who is following, assisting with care as above. ? Continue vitamin K 10 mg IV daily for 2 more days. - Continue rifaximin 550 mg 3 times daily for hepatic encephalopathy, asterixis, hyperammonia. - Follow-up morning CBC, CMP, magnesium, INR/PT, phosphorus ordered daily - Nutrition consulted to assist with dietary recommendations and risk for malnutrition. Patient at risk for refeeding syndrome. Recommend boost/protein supplement with trays - senior bioinformatics specialist consulted. Alcohol withdrawal - Acutely intoxicated with initial alcohol level of 272. Initiated on CIWA protocol with lorazepam due to acute liver injury. Will hold on phenobarbital due to contraindication in acute liver failure. - Multivitamin with supplementation including folate and thiamine daily. Rally pack daily. ? Started gabapentin 300 mg twice daily. Uptitrate based on response. - Seizure precautions #Acute urinary retention ? Straight cath had 1050 mL urine output, my review of CT scan shows mildly enlarged prostate. ? Started tamsulosin 0.4 mg daily. ? Continue to monitor urine output. #Hypokalemia #Hypomagnesemia #Hypophosphatemia ? Potassium 2.9, magnesium 1.2, phosphorus 1.5. Repleted with IV and oral. Follow-up repeat potassium, magnesium, phosphorus levels. #Low folic acid ? Folic acid 2.41. Continue daily folic acid 1 mg. ? Follow-up B12. Hypertension: Diltiazem 180 mg extended release twice daily COPD: On room air. Initiate DuoNebs every 6 hours prn. Goal sats greater 90%. In no acute exacerbation at this time GERD: Continue pantoprazole as formulary conversion 40 mg twice daily Full code Anticoagulation contraindicated given coagulopathy and INR of 2.2 Regular diet with protein supplementation ICU/Critical care attestation This patient is critically ill with 45 minutes devoted solely to this patient managing life/organ supporting interventions that required physician assessment. This includes time spent making adjustments in ventilator settings, IV fluid administration, titration of pressors, adjustments of medications, discussion of patient with consultants and other care providers as well as updating patient and/or family (if patient by virtue of his/her condition is unable to participate in decision making). This does not include time spent performing separately billed procedures. Time is not concurrent with that of other providers.
--- NOTE | 2024-09-14 21:27 | PC.NURSE ---
spoke with ja about agitation
--- NOTE | 2024-09-14 23:50 | PC.NURSE ---
bladder scan done and 487 ml was noted.
[2024-09-15] VITALS (26 sets, daily range): BP systolic 106–144; BP diastolic 68–96; PULSE 96–130; RESP 9–21; TEMP 36.4–36.9; O2SAT 3–100; BMI 28.3
[2024-09-15] MEDS: IPRATROPIUM/ALBUTEROL 3 ML NEB IH ×2 (00:12→06:06)
--- NOTE | 2024-09-15 00:32 | PC.NURSE ---
notified of [facility]
[2024-09-15] MEDS: LORazepam 2MG/ML VIAL 2 MG IV ×2 (00:33→23:49)
--- NOTE | 2024-09-15 06:00 | US_ITS ---
FINAL REPORT TECHNIQUE: Sonographic images of the right upper quadrant were obtained. CLINICAL HISTORY: Transamitis, please eval CBD as well COMPARISON: 07/13/2024 FINDINGS: PANCREAS: Obscured. LIVER: Enlarged and fatty infiltrated. No focal hepatic lesion. No intrahepatic biliary ductal dilatation. The portal vein is patent. GALLBLADDER: Gallstones in the gallbladder. No gallbladder wall thickening or pericholecystic fluid. COMMON DUCT: 4 mm. Normal for age. RIGHT KIDNEY: The right kidney measures 10.6 cm. There is no hydronephrosis, mass, or stone. FREE FLUID: None. IMPRESSION: Enlarged fatty liver. Gallstones. Reviewed, Interpreted and Dictated by Ana Crandall MD Transcribed by Jenni Oquendo Authenticated and [facility]
[2024-09-15] MEDS: LORazepam 2MG/ML VIAL 1 MG IV (06:23)
[2024-09-15 06:25] LABS: Basophils % 0.1 % (0.1-2.0); Eosinophils % 0.1 % (0.1-12.0); Hematocrit 34.5 % (42.0-52.0); Lymphocytes # 0.3 K/mm3 (0.7-4.5); Lymphocytes % 2.5 % (10-50); Mean Corpuscular HGB Conc 34.8 g/dL (31.8-35.4); Mean Corpuscular Hemoglobin 36.4 pg (27.0-31.2); Mean Corpuscular Volume 104.5 fl (80-94); Mean Platelet Volume 11.1 fl (7.4-10.4); Monocytes # 1.3 K/mm3 (0.1-1.0); Monocytes % 9.3 % (1.7-9.3); Neutrophils # 11.7 K/mm3 (1.8-7.8); Neutrophils % 85.9 % (37.0-80.0); Platelet Count 241 K/mm3 (142-424); Red Cell Distribution Width 16.2 % (11.5-17.5); White Blood Count 13.6 K/mm3 (4.8-10.8)
[2024-09-15 06:29] LABS: INR 1.15 (0.9-1.1); Prothrombin Time 12.4 seconds (9.2-12.1)
[2024-09-15 06:39] LABS: Iron 169 ug/dL (49-181)
[2024-09-15 06:49] LABS: Total Iron Binding Capacity 186 ug/dL (261-462)
[2024-09-15 06:55] LABS: Albumin Level 3.3 g/dl (3.5-5.0); Chloride 104 mmol/L (98-107); Sodium 135 mmol/L (136-145)
[2024-09-15 06:56] LABS: Potassium 3.6 mmoL/L (3.5-5.1)
[2024-09-15 06:58] LABS: Alanine Aminotransferase 136 U/L (12-78); Albumin/Globulin Ratio 1.1 (1.1-1.8); Alkaline Phosphatase 259 U/L (38-126); Anion Gap 12.6 mEq/L (5-15); Aspartate Amino Transferase 428 U/L (17-59); Bilirubin,Total 20.7 mg/dl (0.2-1.3); Blood Urea Nitrogen 11 mg/dl (9-20); Carbon Dioxide 22 mmol/L (22.0-30.0); Creatinine Clearance Estimated 152 mL/min (50-200); Estimated Glomerular Filt Rate 115 ml/min (>60); GFR (African American) 140 ML/MIN (>60); Globulin 3.1 g/dL (1.3-3.2); Phosphorous 2.3 mg/dl (2.5-4.5); Total Protein,Serum 6.4 g/dl (6.3-8.2)
[2024-09-15 06:59] LABS: Calcium 7.9 mg/dl (8.4-10.2); Glucose 114 mg/dl (74-100); Magnesium 1.7 mg/dl (1.6-2.3)
[2024-09-15 07:15] LABS: Ferritin 322 ng/ml (17.9-464)
--- NOTE | 2024-09-15 08:10 | PC.NURSE ---
Spoke to Dr. Kim about the patients possible source of infection since Zosyn has been ordered. This nurse informed him that with the patients increase in WBC this morning he now triggers sepsis assuming he has a source and we dont have any blood cultures drawn yet. gave verbal order for blood cultures at this time. Lab notified. will hold zosyn will collected.
[2024-09-15 08:21] LABS: Hemoglobin A1C 4.1 % (4.0-6.0)
--- NOTE | 2024-09-15 08:34 | PC.NURSE ---
called radiology about ETA for liver US. they stated they were booked up and couldnt get the pt in until around 3pm today. This nurse asked if it cant be sooner since the pt is ICU and inpatient
[2024-09-15] MEDS: PHYTONADIONE 10 MG in 0.9 % SODIUM CHLORIDE 50 ML 100 MG IV (08:49)
[2024-09-15] MEDS: PIPERCILLIN/TAZO 3.375 GM in 0.9 % SODIUM CHLORIDE 50 ML IV ×3 (08:50→23:52)
[2024-09-15] MEDS: MVI, ADULT NO.1 WITH VIT K 10 ML, THIAMINE HCL 100 MG, MAGNESIUM SULFATE 2 GM in LACTAT... 125 ML IV (09:05)
[2024-09-15] MEDS: PANTOPRAZOLE 40MG VIAL 40 MG IV ×2 (09:08→20:22)
[2024-09-15] MEDS: RIFAXIMIN 550MG TABLET 550 MG PO ×3 (09:08→20:22)
[2024-09-15] MEDS: SODIUM CHLORIDE 0.9% 10ML VIAL 10 ML IV ×3 (09:09→23:49)
[2024-09-15] MEDS: dilTIAZem HCL 180MG CAP.ER.24H 180 MG PO ×2 (09:09→20:22)
[2024-09-15] MEDS: FOLIC ACID 1MG TABLET 1 MG PO (09:09)
[2024-09-15] MEDS: GABAPENTIN 300MG CAPSULE 300 MG PO ×2 (09:09→20:22)
[2024-09-15] MEDS: THIAMINE 100MG TABLET 100 MG PO (09:10)
[2024-09-15] MEDS: guaiFENesin 600 MG TAB.ER.12H PO ×2 (09:10→20:22)
--- NOTE | 2024-09-15 09:54 | HMH.OTEV ---
OT Inpatient Evaluation Rehab OT IP Evaluation Start: 09/13/24 18:20 Freq: ONCE Status: Active Protocol: Document 09/15/24 09:47 [facility] (Rec: 09/15/24 09:54 [facility] [id number]) Rehab OT IP Assessment Subjective History Pt oriented to self. Pt admitted on 09/13/24 due to acute hepatitis. History and physical: Mr. Aguilar is a 59-year-old male who presented to the ER with abnormal liver enzymes. On arrival, patient is clearly jaundiced. Reports drinking a pint of alcohol a day. Initial labs concerning for hepatocellular injury pattern of lab abnormalities including impaired synthetic function with elevated INR of 2.17, AST of 700, jaundice of 23, and severely enlarged liver on imaging. GI was consulted and recommended admission to ICU and further management. Meld calculated at 27, Maddrey's calculated at 62. Medicine consulted for admission. Patient initiated on CIWA protocol with Ativan. High risk of decompensation. Patient denies any significant abdominal pain, nausea, vomiting, shortness of breath. Denies any blood in vomit or stool. Stools he states have been pale to white over the past few days. Poor p.o. intake. States he is lost muscle mass over the past few months. Denies fever. Reports increased fatigue over the past few weeks. Saw gastroenterology back in July and was initiated on workup for his liver dysfunction. Condition has only worsened. Subjective Pt unable to provide prior level of functioning due to continued confusion. However per nursing, pt was independent with all ADLs and functional transfers before admission. 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 He lived at home with his . Objective Patient Orientation Person Right Upper Extremity Gross ROM Min Limitation <25% Left Upper Extremity Gross ROM Min Limitation <25% Shoulder ROM Limitations Muscle Weakness Elbow ROM Limitations Muscle Weakness Wrist Limitations of Range of Motion Muscle Weakness Bed Mobility bed mobility-scooting,bed mobility - supine/sit Assist Level Minimal x 1 (25% assist) Transfer Training Sit/Stand Transfer Assist Level Moderate x 1 (50% assist) Rehab OT IP prob,goals,plan Problems Date of Evaluation: 09/15/24 OT IP Problems Bed Mobility,Transfers,Balance ,Self care,Safety Rehab Potential Rehab Potential Good Equipment Needs Assistive Devices Rolling / Wheeled Walker Plan OT intervention Plan Bed Mobility,Transfers,Balance ,Self care,Safety,Therapeutic Exercise OT Plan Frequency Daily Duration LOS Discharge Goals Bed Mobility Ability Standby Assistance Sit to Stand Chair Transfer Ability Minimal x 1 (25% assist) Chair Transfer Ability Minimal x 1 (25% assist) Chair Transfer Technique Sit to/from Ambulatory Chair Transfer Assistive Devices Rolling Walker Feeding Ability Assist with Tray Set Up Lower Body Dressing Ability Moderate Assistance Upper Body Dressing Ability Minimal Assistance Bathing Ability Moderate Assistance Performing Toilet Hygiene Ability Moderate Assistance Overall Commode/Toilet Transfer Ability Minimal Assistance Commode/Toilet Transfer Technique Sit to/from Ambulatory Commode/Toilet Transfer Assistive Grab Bars Devices Decrease in Endurance Yes Discharge Plan OT Discharge Plan Pt will continue to be seen for OT services while at [facility]. Pt presents below baseline with functional transfers and ADL independence. At this time, pt would benefit most from short term rehab at SNF following discharge from hospital. Continued skilled therapy is important for patient to improve strength, safety, endurance, ADL independence, and functional transfers to reach PLOF. Eval Complexity Eval Charge Codes 27497 - Moderate Complexity PHYSICIAN CERTIFICATION: I certify the specified therapy services for Pritesh Aguilar are required, authorized, and reviewed every 30 days.
--- NOTE | 2024-09-15 10:18 | PC.NURSE ---
Pt reports lower back pain. bladder scan performed. 270ml of urine noted. MD notified.
--- NOTE | 2024-09-15 10:27 | DIET.NUTRFU ---
Went to visit this morning, he was more alert, sitting up in bed for breakfast. Asked for try this morning. Patient needs 1:1 assist secondary to tremors. Will attempt to visit later today
--- NOTE | 2024-09-15 10:52 | HMH.PTEV ---
Physical Therapy Evaluation Rehab PT IP Evaluation Start: 09/13/24 18:20 Freq: ONCE Status: Active Protocol: Document 09/15/24 09:45 SARTHAK (Rec: 09/15/24 10:52 PHORJUSTYN [id number]) Subjective/History History History Pt oriented to self. Pt admitted on 09/13/24 due to acute hepatitis. History and physical: Mr. Aguilar is a 59-year-old male who presented to the ER with abnormal liver enzymes. On arrival, patient is clearly jaundiced. Reports drinking a pint of alcohol a day. Initial labs concerning for hepatocellular injury pattern of lab abnormalities including impaired synthetic function with elevated INR of 2.17, AST of 700, jaundice of 23, and severely enlarged liver on imaging. GI was consulted and recommended admission to ICU and further management. Meld calculated at 27, Maddrey's calculated at 62. Medicine consulted for admission. Patient initiated on CIWA protocol with Ativan. High risk of decompensation. Patient denies any significant abdominal pain, nausea, vomiting, shortness of breath. Denies any blood in vomit or stool. Stools he states have been pale to white over the past few days. Poor p.o. intake. States he is lost muscle mass over the past few months. Denies fever. Reports increased fatigue over the past few weeks. Pt reports he lives with family, 2 KEITH the home, and is generally independent with all mobility without AD at baseline. Subjective Subjective Pt reports no c/o pain at this time, but he does c/o increased sensitivity to touch to B LE from knees distally. My feet hurt all the time. He agrees to OOB mobility at this time. Rehab PT IP Eval Objective Appearance Patient Behavior Appropriate Patient Orientation Person,Place Difficulty following instructions none Speech Pattern Clear Ambulation Patient Able to Ambulate No Balance Ability to Arise Able, uses arms to help Sitting Balance Steady, safe Standing Balance Unsteady Dynamic Sitting Balance Ability Good Dynamic Standing Balance Ability Poor Transfers Bed Transfer Ability Minimal x 1 (25% assist) Chair Transfer Ability Moderate x 1 (50% assist) Sit to Stand Bed Transfer Ability Moderate x 1 (50% assist) Sit to Stand Chair Transfer Ability Moderate x 1 (50% assist) ROM All Extremities PT ROM Status WFL MMT All Extremities PT MMT WFL Rehab PT IP prob,goals,plan Problems Date of Evaluation: 09/15/24 PT IP Problems Bed Mobility,Transfers,Gait Rehab Potential Rehab Potential Good Plan PT Intervention Plan Bed Mobility,Transfers,Gait, Therapeutic Exercise PT Plan Frequency Daily Duration LOS Discharge Goals Bed Transfer Ability Supervision/Stand by Sit to Stand Chair Transfer Ability Contact Guard/Hand Hold Ambulation Assistive Device None Ambulation Distance (feet) 30 Discharge Plan PT Discharge Plan Pt is currently most appropriate for rehab placement at this time, but could return home if all therapy goals are met and his general condition vastly improves. Skilled therapy is indicated to improve transfer ability, improve static and dynamic standing balance, and increase tolerance to ambulation in order to return pt to [facility]. Eval Complexity Eval Charge Codes 16408 - High Complexity PHYSICIAN CERTIFICATION: I certify the specified therapy services for Pritesh Aguilar are required, authorized, and reviewed every 30 days.
[2024-09-15 10:54] LABS: Procalcitonin 0.682 ng/mL (0.0-2.0)
--- NOTE | 2024-09-15 11:31 | PC.NURSE ---
pt reports he feels to need to urinate but isnt able to when given a urinal. pt bladder scanned at this time with 377ml reported. notified and gave order for indwelling catheter due to acute urinary retention
[2024-09-15 12:01] LABS: Vitamin B12 747 pg/mL (239-931)
[2024-09-15] MEDS: LORazepam 1MG TABLET 1 MG PO ×2 (12:25→20:22)
--- NOTE | 2024-09-15 13:52 | PEERSUPPORT ---
Peer Support Note Patient Information Patient Information: DOS: 09/15/2024 ? Reason: ETOH/AUD Ps consult: ICU ? Building Rapport: Previous Treatment: None mentioned Longest Length of Sobriety: To be discussed Legal Issues: None mentioned Support System: supportive ? Current Stressors: -Withdrawals of alcohol; tremors, pain with swelling and color of his skin -Missing his 5 grandchildren -Mental strain as patient says why do I keep drinking after seeing so many family members from it? ? Motivation for Change: Pt is still having serious physical symptoms of withdrawal, having difficulty speaking clearly and remembering. Ps maintaining focus on the process of withdrawal management, to meet pts need for comfort to normalize current state. Pt acknowledges his need to stop drinking and is able to share briefly of why showing motivation to be a papaw to his grandbabies and dad to his two kids. Ps shared personal experience relevant to family dynamics of recovery, to continue emphasis on choices to become well for one's self and all involved.? ? Ps practices stretching exercises with pt- arms and feet Pt receptive and engaging Potential Barriers: -Lack of support to recovery at home as children both drink and function daily maintaining life. 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 Harm Reduction: -Education on alcohol use disorder and effects on health -Connection to Bridge peer support -Discussed available treatment at [facility] outpatient level of care -Encourage pts own voice for healthy communication; Pt to nurse and provider ?for better understanding when needed. ? Recovery Plan: -Withdrawal/detox management -Meet basic needs and comfort, ps continue to build rapport -Pt showed interest of inquiring of classes to attend for alcohol use ? Ps plans to discuss further of [facility] 09/16/2024
--- NOTE | 2024-09-15 14:15 | EXP.PN ---
Subjective *Date: 09/15/24 *Time: 14:15 Interval history: Patient more somnolent this morning with reports of in and out mentation and some cognitive impairment that is fluctuating. Less p.o. intake over the last 24 hours Exam Data for Last 24 hours Vital signs and Labs for Last 24 Hours: Temp Pulse Resp BP Pulse Ox O2 Del Method O2 Flow Rate 97.5 F L 101 H 16 134/90 94 L Nasal Cannula 2 09/15/24 12:01 09/15/24 13:00 09/15/24 13:00 09/15/24 13:00 09/15/24 13:00 09/15/24 13:00 09/15/24 13:00 Laboratory Results - last 24 hr 09/14/24 15:55: Sodium 134 L, Potassium 2.9 L*, Chloride 103, Carbon Dioxide 18 L, Anion Gap 15.9 H, BUN 6 L D, Creatinine 0.70, Estimated Creat Clear 150, Estimated GFR 115, Est GFR ( Amer) 140, Glucose 172 H D, Lactate 2.4 H, Calcium 7.9 L, Total Bilirubin > 27.0 H* D, AST 560 H*, ALT 156 H, Alkaline Phosphatase 219 H, Total Protein 7.6, Albumin 3.6, Globulin 4.0 H, Albumin/Globulin Ratio 0.9 L 09/14/24 17:19: Magnesium 1.6 D, Direct Bilirubin 21.9 H, GGT 542 H, Lactate Dehydrogenase 320 09/15/24 05:26: WBC 13.6 H, RBC 3.30 L, Hgb 12.0 L, Hct 34.5 L, MCV 104.5 H, MCH 36.4 H, MCHC 34.8, RDW 16.2, Plt Count 241, MPV 11.1 H, Neut % (Auto) 85.9 H, Lymph % (Auto) 2.5 L, [place] % (Auto) 9.3, Eos % (Auto) 0.1, Baso % (Auto) 0.1, Neut # (Auto) 11.7 H, Lymph # (Auto) 0.3 L, [place] # (Auto) 1.3 H, Eos # (Auto) 0.0, Baso # (Auto) 0.0, PT 12.4 H, INR 1.15 H, Sodium 135 L, Potassium 3.6 D, Chloride 104, Carbon Dioxide 22, Anion Gap 12.6, BUN 11 D, Creatinine 0.70, Estimated Creat Clear 152, Estimated GFR 115, Est GFR ( Amer) 140, Glucose 114 H D, Hemoglobin A1c 4.1, Calcium 7.9 L, Phosphorus 2.3 L D, Magnesium 1.7, Iron 169, TIBC 186 L, Iron Saturation 90.27257 H, Ferritin 322, Total Bilirubin 20.7 H* D, AST 428 H*, ALT 136 H, Alkaline Phosphatase 259 H, Total Protein 6.4, Albumin 3.3 L, Globulin 3.1, Albumin/Globulin Ratio 1.1, Vitamin B12 747, Procalcitonin 0.682 I & O for Last 24 hours: Intake & Output 09/12/24 09/13/24 09/14/24 09/15/24 23:59 23:59 23:59 23:59 Intake Total 855 / 855 460 / 460 Output Total 570 / 570 1650 / 1650 550 / 550 Balance -570 / -330 -795 / -795 -90 / -90 Weight 208 lb 8.984 oz 205 lb 4.817 oz 209 lb 1.6 oz Constitutional Constitutional: mild distress Comments: Grossly icteric sclera *Routine Abdominal Exam Comments: Marked hepatomegaly Assessment and Plan *Assessment and plan (1) Acute alcoholic hepatitis: Status: Acute Category: Medical Code(s): K70.10 - Alcoholic hepatitis without ascites (2) Alcohol withdrawal syndrome: Status: Acute Category: Medical Code(s): F10.939 - Alcohol use, unspecified with withdrawal, unspecified (3) Liver failure: Status: Acute Qualifiers: Liver failure chronicity: acute Hepatic coma status: without hepatic coma Qualified Code(s): K72.00 - Acute and subacute hepatic failure without coma Category: Medical Code(s): K72.90 - Hepatic failure, unspecified without coma (4) Jaundice: Status: Acute Category: Medical Code(s): R17 - Unspecified jaundice Plan 1. Acute alcoholic hepatitis with some cognitive decline. I would continue Xifaxan 550 mg p.o. twice daily. I would continue to encourage oral intake with improved nutrition and protein calorie supplementation. He is getting methylprednisolone and acetylcysteine. Labs are improved with Total bilirubin today of 20.7 and improvement of transaminases and alkaline phosphatase. Repeat ultrasound today shows marked hepatomegaly/fatty liver but no other findings. Again would recommend EGD when clinically improved to assess for portal hypertension. Will continue to follow closely and continue ICU care.
[2024-09-15] MEDS: PROCHLORPERAZINE 10MG/2ML VIAL 10 MG IV (14:25)
[2024-09-15 15:15] LABS: Microscopic, Urine URINE MICROSCOPIC (MICROSCOPIC)
[2024-09-15 15:26] LABS: Blood, Urine TRACE-L (Negative); Color,Urine YELLOW (Yellow); Glucose,Urine (UA) TRACE (Negative); Ketones,Urine TRACE (Negative); Leukocyte Esterase,Urine TRACE (Negative); Nitrate,Urine POSITIVE (Negative); PH,Urine 6.5 (5.0-8.5); Protein,Urine 2+ (Negative); Specific Gravity, Urine 1.025 (1.005-1.030)
[2024-09-15 15:42] LABS: Bilirubin,Urine 3+ (Negative)
[2024-09-15 15:43] LABS: Appearance,Urine Slightly Cloudy (Clear)
[2024-09-15 16:14] LABS: Bacteria,Urine 2+ /lpf; Mucus,Urine 1+ /lpf
--- NOTE | 2024-09-15 16:40 | PC.NURSE ---
Pt stated he changed his mind and wanted his catheter out. He said i just wont be able to rest with it and want to try on my own pt educated on the probability of having to be in/out cathed again and he understood and still wanted the catheter removed.
[2024-09-15] MEDS: MULTIVITAMIN TABLET 1 EACH PO (17:30)
[2024-09-15] MEDS: OXYCODONE 5MG IMMEDIATE RELEASE TABLET 5 MG PO (18:39)
[2024-09-15] MEDS: TAMSULOSIN 0.4MG CAPSULE 0.4 MG PO (20:22)
--- NOTE | 2024-09-15 21:59 | EXP.PN ---
Subjective *Date: 09/15/24 *Time: 21:59 Interval history: Patient is a lot more alert and oriented this afternoon, tolerating diet well. LFTs improving. CIWA scores are also single digits, will transfer to [facility] floor. Exam Data for Last 24 hours Vital signs and Labs for Last 24 Hours: Temp Pulse Resp BP Pulse Ox O2 Del Method O2 Flow Rate 98.4 F 110 H 18 135/78 78 L Room Air 2 09/15/24 20:01 09/15/24 20:03 09/15/24 20:01 09/15/24 20:01 09/15/24 21:58 09/15/24 21:58 09/15/24 19:00 Laboratory Results - last 24 hr 09/15/24 05:26: WBC 13.6 H, RBC 3.30 L, Hgb 12.0 L, Hct 34.5 L, MCV 104.5 H, MCH 36.4 H, MCHC 34.8, RDW 16.2, Plt Count 241, MPV 11.1 H, Neut % (Auto) 85.9 H, Lymph % (Auto) 2.5 L, [place] % (Auto) 9.3, Eos % (Auto) 0.1, Baso % (Auto) 0.1, Neut # (Auto) 11.7 H, Lymph # (Auto) 0.3 L, [place] # (Auto) 1.3 H, Eos # (Auto) 0.0, Baso # (Auto) 0.0, PT 12.4 H, INR 1.15 H, Sodium 135 L, Potassium 3.6 D, Chloride 104, Carbon Dioxide 22, Anion Gap 12.6, BUN 11 D, Creatinine 0.70, Estimated Creat Clear 152, Estimated GFR 115, Est GFR ( Amer) 140, Glucose 114 H D, Hemoglobin A1c 4.1, Calcium 7.9 L, Phosphorus 2.3 L D, Magnesium 1.7, Iron 169, TIBC 186 L, Iron Saturation 90.80494 H, Ferritin 322, Total Bilirubin 20.7 H* D, AST 428 H*, ALT 136 H, Alkaline Phosphatase 259 H, Total Protein 6.4, Albumin 3.3 L, Globulin 3.1, Albumin/Globulin Ratio 1.1, Vitamin B12 747, Procalcitonin 0.682 09/15/24 14:07: Urine Color Yellow, Urine Appearance Slightly cloudy, Urine pH 6.5, Ur Specific [place] 1.025, Urine Protein 2+ A, Urine Glucose (UA) Trace, Urine Ketones Trace, Urine Blood Trace-l, Urine Nitrate Positive A, Urine Bilirubin 3+ A, Urine Urobilinogen 1.0, Ur Leukocyte Esterase Trace, Urine RBC 3-5, Urine WBC 3-5, Ur Squamous Epith Cells 5-10, Urine Bacteria 2+, Urine Mucus 1+ I & O for Last 24 hours: Intake & Output 09/12/24 09/13/24 09/14/24 09/15/24 23:59 23:59 23:59 23:59 Intake Total 855 / 855 1720 / 1720 Output Total 570 / 570 1650 / 1650 1100 / 1100 Balance -570 / -330 -795 / -795 620 / 620 Weight 94.602 kg 93.123 kg 94.846 kg Constitutional Constitutional: no acute distress Comments: Jaundiced. *Routine HEENT Exam Head: Present normocephalic Eye: Present EOMI and PERRL ENT: Present mucous membranes moist *Routine Neck Exam Neck: Present supple; Absent lymphadenopathy *Routine Respiratory Exam Respiratory: Present CTA bilaterally *Routine Cardiovascular Exam Cardiovascular: Present RRR *Routine Abdominal Exam Abdominal: Present normoactive bowel sounds, firm and organomegaly Comments: Marked hepatomegaly *Routine Extremities Exam Extremities: Absent cyanosis, clubbing or edema *Routine Skin Exam Skin: Present warm; Absent rash *Routine Neurological Exam Neurological: Present alert Assessment and Plan *Assessment and plan (1) Acute alcoholic hepatitis: Status: Acute Category: Medical Code(s): K70.10 - Alcoholic hepatitis without ascites (2) Liver failure: Status: Acute Qualifiers: Liver failure chronicity: acute Hepatic coma status: without hepatic coma Qualified Code(s): K72.00 - Acute and subacute hepatic failure without coma Category: Medical Code(s): K72.90 - Hepatic failure, unspecified without coma (3) Jaundice: Status: Acute Category: Medical Code(s): R17 - Unspecified jaundice (4) Asterixis: Status: Acute Category: Medical Code(s): R27.8 - Other lack of coordination (5) Alcohol intoxication: Status: Acute Qualifiers: Complication of substance-induced condition: uncomplicated Qualified Code(s): F10.920 - Alcohol use, unspecified with intoxication, uncomplicated Category: Medical Code(s): F10.929 - Alcohol use, unspecified with intoxication, unspecified (6) Transaminitis: Status: Acute Category: Medical Code(s): R74.01 - Elevation of levels of liver transaminase levels (7) Primary hypertension: Status: Chronic Category: Medical Code(s): I10 - Essential (primary) hypertension (8) COPD (chronic obstructive pulmonary disease): Status: Chronic Qualifiers: COPD type: unspecified COPD Qualified Code(s): J44.9 - Chronic obstructive pulmonary disease, unspecified Category: Medical Code(s): J44.9 - Chronic obstructive pulmonary disease, unspecified (9) GERD (gastroesophageal reflux disease): Status: Chronic Qualifiers: Esophagitis presence: esophagitis presence not specified Qualified Code(s): K21.9 - Gastro-esophageal reflux disease without esophagitis Category: Medical Code(s): K21.9 - Gastro-esophageal reflux disease without esophagitis (10) HLD (hyperlipidemia): Status: Chronic Qualifiers: Hyperlipidemia type: mixed hyperlipidemia Qualified Code(s): E78.2 - Mixed hyperlipidemia Category: Medical Code(s): E78.5 - Hyperlipidemia, unspecified (11) Coronary artery disease: Status: Chronic Qualifiers: Coronary Disease-Associated Artery/Lesion type: [place] artery [place] vs. transplanted heart: [place] heart Associated angina: without angina Qualified Code(s): I25.10 - Atherosclerotic heart disease of [place] coronary artery without angina pectoris Category: Medical Code(s): I25.10 - Atherosclerotic heart disease of [place] coronary artery without angina pectoris (12) Coagulopathy: Status: Acute Category: Medical Code(s): D68.9 - Coagulation defect, unspecified Plan Pritesh Burns is a 59-year-old male who presented acutely intoxicated with acute liver failure and alcohol withdrawal. Discussed case with ER physician and GI prior to admission. Patient is critically ill. High risk for decompensation. #Acute alcoholic hepatitis (severe) #Acute liver failure #Alcohol intoxication #High anion gap metabolic acidosis #Hepatic metabolic encephalopathy - Maddrey's discriminant function of 62.4, MELD score 27. Confer poor prognosis and 20% 3-month mortality. Per my review of CT of abdomen, patient has severely enlarged liver, no appreciable varices however. No ascites. - Initial alcohol level elevated 272. AGAP improving from 17.2 to 15.9. ? Presented with transaminitis, AST/ALT/ALP/bili 743/177/306/23. Hepatitis panel normal. ? Transaminitis and bilirubin improving today. ? RUQ ultrasound today revealed hepatomegaly, cholelithiasis with no CBD dilation. ? Continue Solu-Medrol 40 mg daily, orally for first-pass metabolism through the liver. Can consider IV if not tolerating oral due to nausea/vomiting. ? Continue Compazine as needed for nausea/vomiting. #Severe protein calorie malnutrition - Continue rifaximin 550 mg 3 times daily for hepatic encephalopathy, asterixis, hyperammonia. ? Discussed case with GI who is following, assisting with care as above. - Follow-up morning CBC, CMP, magnesium, INR/PT, phosphorus ordered daily - Nutrition consulted to assist with dietary recommendations and risk for malnutrition. Patient at risk for refeeding syndrome. Recommend boost/protein supplement with trays - distribution specialist consulted. Alcohol withdrawal - Acutely intoxicated with initial alcohol level of 272. Initiated on CIWA protocol with lorazepam due to acute liver injury. Will hold on phenobarbital due to contraindication in acute liver failure. - Multivitamin with supplementation including folate and thiamine daily. Rally pack daily. ? CIWA scores less than 8 today, more alert and oriented. ?Continue gabapentin 300 mg twice daily. Uptitrate based on response. - Seizure precautions #Acute urinary retention ? Continues to have urinary retention requiring straight caths. Patient refuses Mcgarry. ? Increased tamsulosin 0.4 mg daily. ? Continue to monitor urine output. #Hypokalemia #Hypomagnesemia #Hypophosphatemia ? Potassium 2.9, magnesium 1.2, phosphorus 1.5. Repleted with IV and oral. Follow-up repeat potassium, magnesium, phosphorus levels. #Low folic acid ? Folic acid 2.41. Continue daily folic acid 1 mg. ? Follow-up B12. Hypertension: Diltiazem 180 mg extended release twice daily COPD: On room air. Initiate DuoNebs every 6 hours prn. Goal sats greater 90%. In no acute exacerbation at this time GERD: Continue pantoprazole as formulary conversion 40 mg twice daily Full code Anticoagulation contraindicated given coagulopathy and INR of 2.2 Regular diet with protein supplementation ICU/Critical care attestation This patient is critically ill with 45 minutes devoted solely to this patient managing life/organ supporting interventions that required physician assessment. This includes time spent making adjustments in ventilator settings, IV fluid administration, titration of pressors, adjustments of medications, discussion of patient with consultants and other care providers as well as updating patient and/or family (if patient by virtue of his/her condition is unable to participate in decision making). This does not include time spent performing separately billed procedures. Time is not concurrent with that of other providers.
[2024-09-16] VITALS (14 sets, daily range): BP systolic 106–142; BP diastolic 57–90; PULSE 80–120; RESP 17–20; TEMP 36.4–36.8; O2SAT 92–95; BMI 28.5
[2024-09-16] MEDS: OXYCODONE 5MG IMMEDIATE RELEASE TABLET 5 MG PO ×3 (00:32→13:18)
[2024-09-16] MEDS: TAMSULOSIN 0.4MG CAPSULE 0.4 MG PO (00:32)
[2024-09-16] MEDS: LORazepam 2MG/ML VIAL 2 MG IV ×3 (02:36→13:47)
[2024-09-16] MEDS: SODIUM CHLORIDE 0.9% 10ML VIAL 10 ML IV ×6 (02:36→20:52)
[2024-09-16 06:36] LABS: Basophils # 0.1 K/mm3 (0-0.2); Basophils % 0.3 % (0.1-2.0); Hematocrit 34.4 % (42.0-52.0); Hemoglobin 11.7 g/dL (14.1-18.0); Lymphocytes # 0.4 K/mm3 (0.7-4.5); Lymphocytes % 2.1 % (10-50); Mean Corpuscular Hemoglobin 36.1 pg (27.0-31.2); Mean Corpuscular Volume 106.2 fl (80-94); Mean Platelet Volume 11.2 fl (7.4-10.4); Monocytes # 1.6 K/mm3 (0.1-1.0); Monocytes % 9.1 % (1.7-9.3); Neutrophils % 84.7 % (37.0-80.0); Platelet Count 265 K/mm3 (142-424); Red Blood Count 3.24 M/mm3 (4.60-6.20); White Blood Count 17.7 K/mm3 (4.8-10.8)
[2024-09-16 06:38] LABS: MANUAL DIFFERENTIAL MANUAL DIFFERENTIAL (MANUAL DIFF)
[2024-09-16 06:53] LABS: INR 1.13 (0.9-1.1); Prothrombin Time 12.3 seconds (9.2-12.1)
[2024-09-16] MEDS: LORazepam 1MG TABLET 1 MG PO ×4 (06:57→22:30)
--- NOTE | 2024-09-16 07:18 | PC.NURSE ---
DR JETER AT BEDSIDE
[2024-09-16 07:24] LABS: Albumin Level 3.4 g/dl (3.5-5.0); Chloride 103 mmol/L (98-107); Potassium 3.2 mmoL/L (3.5-5.1); Sodium 134 mmol/L (136-145)
[2024-09-16 07:26] LABS: Blood Urea Nitrogen 14 mg/dl (9-20); Creatinine Clearance Estimated 135 mL/min (50-200); Estimated Glomerular Filt Rate 99 ml/min (>60); GFR (African American) 120 ML/MIN (>60)
[2024-09-16 07:27] LABS: Alanine Aminotransferase 121 U/L (12-78); Alkaline Phosphatase 170 U/L (38-126); Aspartate Amino Transferase 276 U/L (17-59); Bilirubin,Total 23.3 mg/dl (0.2-1.3); Calcium 7.5 mg/dl (8.4-10.2); Globulin 3.3 g/dL (1.3-3.2); Glucose 91 mg/dl (74-100); Magnesium 2.2 mg/dl (1.6-2.3); Total Protein,Serum 6.7 g/dl (6.3-8.2)
--- NOTE | 2024-09-16 07:33 | XR_ITS ---
FINAL REPORT CLINICAL HISTORY: worsening sepsis COMPARISON: 09/14/2024 FINDINGS: CHEST SINGLE VIEW: No acute pulmonary opacity is present. There is no evidence of effusion or pneumothorax. Mediastinum is unremarkable. Heart size is normal. IMPRESSION: No acute abnormality. Reviewed, Interpreted and Dictated by Kofi Parada MD Transcribed by Michelle Whitney Authenticated and [facility]
[2024-09-16 07:39] LABS: Phosphorous 1.8 mg/dl (2.5-4.5)
--- NOTE | 2024-09-16 07:39 | PC.NURSE ---
PORTABLE XRAY AT BEDSIDE
[2024-09-16] MEDS: PIPERCILLIN/TAZO 3.375 GM in 0.9 % SODIUM CHLORIDE 50 ML IV ×2 (07:43→16:23)
[2024-09-16 08:00] LABS: Adenovirus,PCR Not Detected (NotDetected); Bordetella Pertussis Not Detected (NotDetected); Chlamydophila Pneumoniae, PCR Not Detected (NotDetected); Coronavirus 19, PCR Not Detected (NotDetected); Coronavirus 229E Not Detected (NotDetected); Coronavirus NL63 Not Detected (NotDetected); Coronavirus OC43 Not Detected (NotDetected); Coronovirus HKU1,PCR Not Detected (NotDetected); Human Metapneumovirus Not Detected (NotDetected); Influenza A, PCR Not Detected (NotDetected); Influenza AH1, 2009 Not Detected (NotDetected); Influenza AH1, PCR Not Detected (NotDetected); Influenza AH3,PCR Not Detected (NotDetected); Influenza B, PCR Not Detected (NotDetected); Mycoplasma Pneumoniae, PCR Not Detected (NotDetected); Parainfluenza 1, PCR Not Detected (NotDetected); Parainfluenza 2, PCR Not Detected (NotDetected); Parainfluenza 3, PCR Not Detected (NotDetected); Parainfluenza 4, PCR Not Detected (NotDetected); Respiratory Syncytial Virus Not Detected (NotDetected); Rhinovirus/Enterovirus Not Detected (NotDetected)
[2024-09-16 08:01] LABS: Lymphocytes % 3 % (10-50); Monocytes % 10 % (2-9); Neutrophils % 81 % (42-76); Nucleated Red Blood Cells 1; Total Cells Counted 100
[2024-09-16 08:04] LABS: Spherocytes 1+
[2024-09-16 08:10] LABS: Macrocytosis 2+; Platelet Estimate Normal
[2024-09-16 08:17] LABS: Haptoglobin 90 mg/dL (29-370)
[2024-09-16 08:18] LABS: Target Cells 1+
[2024-09-16] MEDS: dilTIAZem HCL 180MG CAP.ER.24H 180 MG PO ×2 (08:27→20:52)
[2024-09-16] MEDS: MVI, ADULT NO.1 WITH VIT K 10 ML, THIAMINE HCL 100 MG, MAGNESIUM SULFATE 2 GM in LACTAT... 125 ML IV (08:27)
[2024-09-16] MEDS: GABAPENTIN 300MG CAPSULE 300 MG PO ×2 (08:27→20:52)
[2024-09-16] MEDS: FOLIC ACID 1MG TABLET 1 MG PO (08:27)
[2024-09-16] MEDS: guaiFENesin 600 MG TAB.ER.12H PO ×2 (08:27→20:52)
[2024-09-16] MEDS: PANTOPRAZOLE 40MG VIAL 40 MG IV ×2 (08:28→20:52)
[2024-09-16] MEDS: RIFAXIMIN 550MG TABLET 550 MG PO ×3 (08:30→20:52)
[2024-09-16] MEDS: THIAMINE 100MG TABLET 100 MG PO (08:30)
--- NOTE | 2024-09-16 08:42 | PC.NURSE ---
dr bianchi at bedside
--- NOTE | 2024-09-16 08:48 | PC.NURSE ---
per request provided her with supplies to shave the pt. denies need for help.
[2024-09-16 08:52] LABS: Anion Gap 12.2 mEq/L (5-15); Carbon Dioxide 22 mmol/L (22.0-30.0)
[2024-09-16] MEDS: POTASSIUM CHLORIDE 20MEQ TAB 40 MEQ PO ×2 (09:32→12:29)
[2024-09-16] MEDS: PHYTONADIONE 5 MG in 0.9 % SODIUM CHLORIDE 50 ML 100 MG IV (09:58)
[2024-09-16] MEDS: THIAMINE HCL 300 MG in 0.9 % SODIUM CHLORIDE 50 ML 212 MG IV ×2 (09:58→17:42)
[2024-09-16] MEDS: LORazepam 2MG/ML VIAL 1 MG IV (10:55)
--- NOTE | 2024-09-16 10:58 | PC.NURSE ---
rt at bedside
[2024-09-16] MEDS: IPRATROPIUM/ALBUTEROL 3 ML NEB IH (11:25)
--- NOTE | 2024-09-16 12:27 | PC.NURSE ---
shayna sam at bedside
--- NOTE | 2024-09-16 14:54 | P.PN_ITS ---
Subjective *Date: 09/16/24 *Time: 14:54 Interval history: Patient continues to improve, though CIWA scores did bump to around 15 overnight. Alert and oriented this morning. Eating improving. Continuing to work with PT. Exam Data for Last 24 hours Vital signs and Labs for Last 24 Hours: Temp Pulse Resp BP Pulse Ox O2 Del Method O2 Flow Rate 97.8 F 102 H 18 136/87 93 L Nasal Cannula 3 09/16/24 12:00 09/16/24 12:00 09/16/24 12:00 09/16/24 12:00 09/16/24 12:00 09/16/24 14:51 09/16/24 14:51 Laboratory Results - last 24 hr 09/14/24 17:19: Haptoglobin 90 09/15/24 14:07: Urine Color Yellow, Urine Appearance Slightly cloudy, Urine pH 6.5, Ur Specific [place] 1.025, Urine Protein 2+ A, Urine Glucose (UA) Trace, Urine Ketones Trace, Urine Blood Trace-l, Urine Nitrate Positive A, Urine Bilirubin 3+ A, Urine Urobilinogen 1.0, Ur Leukocyte Esterase Trace, Urine RBC 3-5, Urine WBC 3-5, Ur Squamous Epith Cells 5-10, Urine Bacteria 2+, Urine Mucus 1+ 09/16/24 05:24: WBC 17.7 H D, RBC 3.24 L, Hgb 11.7 L, Hct 34.4 L, MCV 106.2 H, MCH 36.1 H, MCHC 34.0, RDW 16.0, Plt Count 265, MPV 11.2 H, Neut % (Auto) 84.7 H , Lymph % (Auto) 2.1 L, [place] % (Auto) 9.1, Eos % (Auto) 0.0 L, Baso % (Auto) 0.3, Neut # (Auto) 15.0 H, Lymph # (Auto) 0.4 L, [place] # (Auto) 1.6 H, Eos # (Auto) 0.0, Baso # (Auto) 0.1, Total Counted 100, Neutrophils % (Manual) 81 H, Band Neutrophils % 3.0, Lymphocytes % (Manual) 3 L, Monocytes % (Manual) 10 H, Blast Cells % 3.0, Nucleated RBCs 1, Platelet Estimate Normal, Macrocytosis 2+, Spherocytes 1+, Target Cells 1+, PT 12.3 H, INR 1.13 H, Sodium 134 L, Potassium 3.2 L, Chloride 103, Carbon Dioxide 22, Anion Gap 12.2, BUN 14 D, Creatinine 0.80, Estimated Creat Clear 135, Estimated GFR 99, Est GFR ( Amer) 120, Glucose 91 D, Calcium 7.5 L, Phosphorus 1.8 L, Magnesium 2.2 D, Total Bilirubin 23.3 H* D, AST 276 H D, ALT 121 H, Alkaline Phosphatase 170 H, Total Protein 6.7, Albumin 3.4 L, Globulin 3.3 H, Albumin/Globulin Ratio 1.0 L 09/16/24 07:45: Chlamy pneumoniae PCR Not detected, Adenovirus (PCR) Not detected, B. pertussis DNA (PCR) Not detected, Coronavirus OC43 (PCR) Not detected, Coronavirus HKU1 (PCR) Not detected, Coronavirus 229E (PCR) Not detected, SARS-CoV-2 (PCR) Not detected, Coronavirus NL63 (PCR) Not detected, Human Metapneumovir PCR Not detected, Influenza A (H1) PCR Not detected, Influ A (H1N1/09) PCR Not detected, Influenza A (H3) PCR Not detected, Influenza Type A (PCR) Not detected, Influenza Type B (PCR) Not detected, M. pneumoniae (PCR) Not detected, Parainfluenza 1 (PCR) Not detected, Parainfluenza 2 (PCR) Not detected, Parainfluenza 3 (PCR) Not detected, Parainfluenza 4 (PCR) Not detected, RSV (PCR) Not detected, Entero/Rhino (PCR) Not detected I & O for Last 24 hours: Intake & Output 09/13/24 09/14/24 09/15/24 09/16/24 23:59 23:59 23:59 23:59 Intake Total 855 / 855 1720 / 1720 795 / 795 Output Total 570 / 570 1650 / 1650 1100 / 1100 1025 / 1025 Balance -570 / -330 -795 / -795 620 / 620 -230 / -230 Weight 94.602 kg 93.123 kg 94.846 kg 95.663 kg Microbiology Reports for the Last 24 Hours: Microbiology 09/14/24 15:45 Rectum CRE Surveillance Culture - Final Negative 09/15/24 08:20 Blood Blood Culture - Preliminary NO GROWTH AFTER 24 HOURS 09/15/24 08:20 Blood Blood Culture - Preliminary NO GROWTH AFTER 24 HOURS Constitutional Constitutional: no acute distress Comments: Jaundiced. *Routine HEENT Exam Head: Present normocephalic Eye: Present EOMI and PERRL ENT: Present mucous membranes moist *Routine Neck Exam Neck: Present supple; Absent lymphadenopathy *Routine Respiratory Exam Respiratory: Present CTA bilaterally *Routine Cardiovascular Exam Cardiovascular: Present RRR *Routine Abdominal Exam Abdominal: Present normoactive bowel sounds, firm and organomegaly Comments: Marked hepatomegaly *Routine Extremities Exam Extremities: Absent cyanosis, clubbing or edema *Routine Skin Exam Skin: Present warm; Absent rash *Routine Neurological Exam Neurological: Present alert Assessment and Plan *Assessment and plan (1) Acute alcoholic hepatitis: Status: Acute Category: Medical Code(s): K70.10 - Alcoholic hepatitis without ascites (2) Liver failure: Status: Acute Qualifiers: Liver failure chronicity: acute Hepatic coma status: without hepatic coma Qualified Code(s): K72.00 - Acute and subacute hepatic failure without coma Category: Medical Code(s): K72.90 - Hepatic failure, unspecified without coma (3) Jaundice: Status: Acute Category: Medical Code(s): R17 - Unspecified jaundice (4) Asterixis: Status: Acute Category: Medical Code(s): R27.8 - Other lack of coordination (5) Alcohol intoxication: Status: Acute Qualifiers: Complication of substance-induced condition: uncomplicated Qualified Code(s): F10.920 - Alcohol use, unspecified with intoxication, uncomplicated Category: Medical Code(s): F10.929 - Alcohol use, unspecified with intoxication, unspecified (6) Transaminitis: Status: Acute Category: Medical Code(s): R74.01 - Elevation of levels of liver transaminase levels (7) Primary hypertension: Status: Chronic Category: Medical Code(s): I10 - Essential (primary) hypertension (8) COPD (chronic obstructive pulmonary disease): Status: Chronic Qualifiers: COPD type: unspecified COPD Qualified Code(s): J44.9 - Chronic obstructive pulmonary disease, unspecified Category: Medical Code(s): J44.9 - Chronic obstructive pulmonary disease, unspecified (9) GERD (gastroesophageal reflux disease): Status: Chronic Qualifiers: Esophagitis presence: esophagitis presence not specified Qualified Code(s): K21.9 - Gastro-esophageal reflux disease without esophagitis Category: Medical Code(s): K21.9 - Gastro-esophageal reflux disease without esophagitis (10) HLD (hyperlipidemia): Status: Chronic Qualifiers: Hyperlipidemia type: mixed hyperlipidemia Qualified Code(s): E78.2 - Mixed hyperlipidemia Category: Medical Code(s): E78.5 - Hyperlipidemia, unspecified (11) Coronary artery disease: Status: Chronic Qualifiers: Coronary Disease-Associated Artery/Lesion type: [place] artery [place] vs. transplanted heart: [place] heart Associated angina: without angina Qualified Code(s): I25.10 - Atherosclerotic heart disease of [place] coronary artery without angina pectoris Category: Medical Code(s): I25.10 - Atherosclerotic heart disease of [place] coronary artery without angina pectoris (12) Coagulopathy: Status: Acute Category: Medical Code(s): D68.9 - Coagulation defect, unspecified Plan Pritesh Burns is a 59-year-old male who presented acutely intoxicated with acute liver failure and alcohol withdrawal. Discussed case with ER physician and GI prior to admission. Patient is critically ill. High risk for decompensation. #Acute alcoholic hepatitis (severe) #Acute liver failure #Alcohol intoxication #High anion gap metabolic acidosis #Hepatic metabolic encephalopathy #Severe protein calorie malnutrition - Maddrey's discriminant function of 62.4, MELD score 27. Confer poor prognosis and 20% 3-month mortality. Per my review of CT of abdomen, patient has severely enlarged liver, no appreciable varices however. No ascites. - Initial alcohol level elevated 272. ? Presented with transaminitis, AST/ALT/ALP/bili 743/177/306/23. Hepatitis panel normal. ? AST/ALT 276/121 significantly improved, and bilirubin slightly bumped to 23 today. AGAP resolved. ? RUQ ultrasound 09/15/2024 revealed hepatomegaly, cholelithiasis with no CBD dilation. ? Continue Solu-Medrol 40 mg daily, orally for first-pass metabolism through the liver. Can consider IV if not tolerating oral due to nausea/vomiting. ? Continue Compazine as needed for nausea/vomiting. - Continue rifaximin 550 mg 3 times daily for hepatic encephalopathy, asterixis, hyperammonia. ? Discussed case with GI who is following, assisting with care as above. - Follow-up morning CBC, CMP, magnesium, INR/PT, phosphorus ordered daily - Nutrition consulted to assist with dietary recommendations and risk for malnutrition. Patient at risk for refeeding syndrome. Recommend boost/protein supplement with trays - clinical exercise specialist consulted. Alcohol withdrawal - Acutely intoxicated with initial alcohol level of 272. Initiated on CIWA protocol with lorazepam due to acute liver injury. Will hold on phenobarbital due to contraindication in acute liver failure. - Multivitamin with supplementation including folate and thiamine daily. Rally pack daily. ? CIWA scores bumped to around 15 overnight, improved this morning. Continue monitor. ?Continue gabapentin 300 mg twice daily. Uptitrate based on response. - Seizure precautions #Acute urinary retention ? Continues to have urinary retention requiring straight caths. Patient refuses [place]. ? Increased tamsulosin 0.8 mg daily. ? Continue to monitor urine output. #Hypokalemia #Hypomagnesemia #Hypophosphatemia ? Initial potassium 2.9, magnesium 1.2, phosphorus 1.5. Repleted with IV and oral. Follow-up repeat potassium, magnesium, phosphorus levels. #Low folic acid ? Folic acid 2.41. Continue daily folic acid 1 mg. ? B12 normal 747 Hypertension: Diltiazem 180 mg extended release twice daily COPD: On room air. Initiate DuoNebs every 6 hours prn. Goal sats greater 90%. In no acute exacerbation at this time GERD: Continue pantoprazole as formulary conversion 40 mg twice daily Full code Anticoagulation contraindicated given coagulopathy and INR of 1.13 Regular diet with protein supplementation
[2024-09-16] MEDS: MULTIVITAMIN TABLET 1 EACH PO (16:23)
--- NOTE | 2024-09-16 17:57 | PC.NURSE ---
pt has tolerated 2L NC well throughout shift. diminished lung sounds in bilateral bases. expiratory rhonchi noted in bilateral upper lobes. pt has wax and wanned throughout this shift. at times he is able to answer basic questions appropriately and at times he doesn't know his name, birthday, or where he is. reoriented pt several times. occasional dry, nonproductive cough noted. pt has remained tachy throughout this shift. pt has remained on tele throughout shift. nonpitting edema noted to ble. pt is jaundice and will in color. active bowel sounds heard in all 4 quadrants. soft and nontender abdomen. no bm thus far. pt voids per urinal with assistance. urine was a dark tea color and beginning of shift and is now more of a dark yellow color. pt had two family members visit today. ciwa score assessed based on score and ativan given per protocol. pt has been very restless today. states earlier in the day he was having nightmares. denies seeing or hearing anything. pt has had tremors most of the shift. pt has only been able to rest about a hour today. meds given per oct. pt has tolerated all meds well throughout shift. bed alarm on to promote safety. pt has drank well today but hasn't ate well. offered several food options to pt and he declined. hand warp dresser equal. vss. pt has remained afebrile. bed in lowest position. call light within reach.
--- NOTE | 2024-09-16 18:07 | PC.NURSE ---
shayna sam at bedside
--- NOTE | 2024-09-16 19:46 | PC.NURSE ---
pt arrived to floor from ICU via bed at 193
[2024-09-16] MEDS: TAMSULOSIN 0.4MG CAPSULE 0.8 MG PO (20:52)
--- NOTE | 2024-09-16 23:31 | PC.NURSE ---
2256- Bed alarm heard, this nurse and tech Latasha entered room, patient was noted to be on floor, pt was attempting to get up himself using bed. Staff assisted patient back to bed, patient was saying I looked at the clock and it was wrong time , patient is only alert to self at this time. Notified Melo Freedman APRN, ask if patient was in any pain, patient stated no pain. No new orders at this time. Only notable injury is redness to right side of back, no bleeding or bruising.
[2024-09-17] VITALS (7 sets, daily range): BP systolic 116–140; BP diastolic 67–90; PULSE 90–111; RESP 16–22; TEMP 36.5–36.9; O2SAT 94–96; BMI 28.8
[2024-09-17] MEDS: PIPERCILLIN/TAZO 3.375 GM in 0.9 % SODIUM CHLORIDE 50 ML IV ×3 (00:07→15:30)
[2024-09-17] MEDS: THIAMINE HCL 300 MG in 0.9 % SODIUM CHLORIDE 50 ML 212 MG IV ×3 (01:21→17:35)
[2024-09-17] MEDS: LORazepam 2MG/ML VIAL 1 MG IV (02:12)
[2024-09-17] MEDS: SODIUM CHLORIDE 0.9% 10ML VIAL 10 ML IV ×3 (02:13→20:21)
--- NOTE | 2024-09-17 04:25 | PC.NURSE ---
Patient alert and oriented throughout shift, but patient does wax and wane, more when coming out of a quick sleep. Patient has not slept for long periods of time, patient will nap on and off. Patient tries to get out of bed multiple times throughout shift. Patient believes he can walk to the restroom but due to falling and being very weak, patient is a 2 assist to stand on the side of the bed, patient is not steady on feet. Did use the bedside commode with max assist two times, 2 small bowel movements noted, urine output adequate throughout shift, bright yellow/mary in color. Patient did have one episode of incontinence, linens changed. Patient would get agitated at staff for staying in room when trying to get up, explained to patient we have to stay by for his safety. Pt did request mountain dew, and did drink 2 or these as well as water. Patient did eat one cup of green jello. Bed alarm has remained on. Nonskid safety socks have been in place. Call light in reach.
[2024-09-17] MEDS: LORazepam 1MG TABLET 1 MG PO ×4 (05:44→20:37)
--- NOTE | 2024-09-17 06:36 | PC.NURSE ---
Samina with hospice returned call to take report.
[2024-09-17 07:08] LABS: INR 1.13 (0.9-1.1); Prothrombin Time 12.3 seconds (9.2-12.1)
[2024-09-17 07:09] LABS: Albumin Level 3.6 g/dl (3.5-5.0); Chloride 104 mmol/L (98-107); Potassium 3.7 mmoL/L (3.5-5.1); Sodium 135 mmol/L (136-145)
[2024-09-17 07:11] LABS: Blood Urea Nitrogen 16 mg/dl (9-20); Creatinine Clearance Estimated 120 mL/min (50-200); Estimated Glomerular Filt Rate 86 ml/min (>60); GFR (African American) 105 ML/MIN (>60)
[2024-09-17 07:12] LABS: Alanine Aminotransferase 144 U/L (12-78); Alkaline Phosphatase 200 U/L (38-126); Anion Gap 12.7 mEq/L (5-15); Aspartate Amino Transferase 302 U/L (17-59); Bilirubin,Total 25.5 mg/dl (0.2-1.3); Calcium 7.7 mg/dl (8.4-10.2); Carbon Dioxide 22 mmol/L (22.0-30.0); Globulin 3.6 g/dL (1.3-3.2); Glucose 98 mg/dl (74-100); Magnesium 2.1 mg/dl (1.6-2.3); Total Protein,Serum 7.2 g/dl (6.3-8.2)
[2024-09-17 07:36] LABS: Basophils # 0.1 K/mm3 (0-0.2); Basophils % 0.4 % (0.1-2.0); Hematocrit 37.2 % (42.0-52.0); Hemoglobin 12.7 g/dL (14.1-18.0); Lymphocytes # 0.6 K/mm3 (0.7-4.5); Lymphocytes % 3.5 % (10-50); Mean Corpuscular HGB Conc 34.1 g/dL (31.8-35.4); Mean Corpuscular Hemoglobin 37.2 pg (27.0-31.2); Mean Corpuscular Volume 109.1 fl (80-94); Mean Platelet Volume 10.9 fl (7.4-10.4); Monocytes # 1.5 K/mm3 (0.1-1.0); Monocytes % 9.7 % (1.7-9.3); Neutrophils % 81.4 % (37.0-80.0); Platelet Count 290 K/mm3 (142-424); Red Blood Count 3.41 M/mm3 (4.60-6.20); Red Cell Distribution Width 15.9 % (11.5-17.5)
[2024-09-17 07:41] LABS: MANUAL DIFFERENTIAL MANUAL DIFFERENTIAL (MANUAL DIFF)
[2024-09-17 08:16] LABS: Phosphorous 1.7 mg/dl (2.5-4.5)
[2024-09-17 08:53] LABS: Lymphocytes % 10 % (10-50); Monocytes % 7 % (2-9); Neutrophils % 82 % (42-76); Platelet Estimate Normal; Total Cells Counted 100
[2024-09-17 08:54] LABS: Macrocytosis 2+; Spherocytes 1+; Target Cells 1+
[2024-09-17] MEDS: PANTOPRAZOLE 40MG VIAL 40 MG IV ×2 (08:58→20:20)
[2024-09-17] MEDS: FOLIC ACID 1MG TABLET 1 MG PO (08:59)
[2024-09-17] MEDS: RIFAXIMIN 550MG TABLET 550 MG PO ×3 (08:59→20:24)
[2024-09-17] MEDS: guaiFENesin 600 MG TAB.ER.12H PO ×2 (08:59→20:20)
[2024-09-17] MEDS: GABAPENTIN 300MG CAPSULE 300 MG PO ×2 (08:59→20:20)
[2024-09-17] MEDS: dilTIAZem HCL 180MG CAP.ER.24H 180 MG PO ×2 (08:59→20:20)
[2024-09-17] MEDS: SODIUM PHOSPHATE 15 MMOL in 0.9 % SODIUM CHLORIDE 250 ML 63.75 MMOL IV (09:14)
--- NOTE | 2024-09-17 10:00 | PEERSUPPORT ---
Peer Support Note Patient Information Patient Information: DOS: 09/16/2024 ? Reason: ETOH/AUD Ps consult Admitted: ICU ? Pt is resting, having a rough day. Nurse giving medication. Ps will revisit periodically. ? Ps follow up bedside. Daughter at bedside, pt agrees for ps to speak openly. ? Pt is wanting to get up and move for exercise. ? Ps is able to practice arm exercises with pt with breathing exercises. Pt is engaging and receptive to practices. ? Ps is able to rest into bed following. ? Ps, nurse, and daughter discuss alcohol use disorder and the family dynamic of support with awareness to the process that is sometimes slow to encourage hope and support. ? Ps provides contact information for any needs or connection to outside resources in community. Ps will follow up bedside on 09/17/2024 to offer support and if pt is able to discuss more after care and plan for recovery.
--- NOTE | 2024-09-17 10:04 | PC.NURSE ---
Patient's left the floor at this time. Bed alarm turned back on for patient safety.
--- NOTE | 2024-09-17 10:20 | EXP.PULM.CON ---
History of Present Illness History of present illness: Mr. Aguilar is a 59-year-old male admitted to the hospital on 09/13/2024 with elevated AST and ALT being managed in the hospital for acute alcoholic hepatitis, liver failure, metabolic encephalopathy, alcohol withdrawal pulmonary was called to manage his baseline COPD. Patient said he is a never smoker. 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 At baseline using albuterol inhaler 3-4 times per day with improving symptoms. [facility] Disclaimer: The information contained in this section may have been updated after the patient was seen, as this information can be updated by other users. Medical History (Updated 09/17/24 @ 13:23 by Tari Motta MD) Dyspnea on exertion Fatigue Mass of pancreas Tick bite Myalgia Acute liver failure Acute renal failure Jaundice Mass of pancreas Alcohol abuse Hypertriglyceridemia Coronary artery disease Cirrhosis Abnormal nuclear cardiac imaging test Rhabdomyolysis Gallstones Transaminitis Hyperuricemia Hepatic steatosis Rheumatoid factor positive Abnormal stress test Edema SOB (shortness of breath) on exertion Primary hypertension Diastolic dysfunction Ex-smoker COPD (chronic obstructive pulmonary disease) GERD (gastroesophageal reflux disease) HLD (hyperlipidemia) HHD (hypertensive heart disease) Surgical History H/O removal of cyst Family History Father Cancer of heart Mother Lung cancer Colon cancer Liver cancer Mother No problems noted. Social History Smoking Status: Never smoker alcohol intake: current alcohol intake frequency: 3 or more drinks per day substance use type: denies use current occupational status: retired Travel in the last 8 weeks: None household members: spouse caffeine: No Have you lived/traveled outside [place] in past 30 days?: No Contact w/someone who lives/traveled outside [place] past 30 days?: No Exposure to someone with infectious disease in past 14 days?: No Do you have a fever (greater than 100.4 F or 38 C)?: No Have you tested positive for COVID-19: No Exposed to someone with COVID-19 in past 14 days?: No Do you have a sore throat?: No Do you have a cough?: No Do you have any weakness?: No Are you experiencing any nausea/vomitting?: No Do you have any diarrhea?: No Are you experiencing any unusual bleeding?: No Do you have any muscle aches/pain?: No Do you have any abdominal pain?: No Are you experiencing loss of taste or smell?: No Review of Systems Constitutional Constitutional: Reports anorexia, Reports body ache(s) and Reports fatigue Eyes Eyes: Denies eye discharge, Denies dry eyes, Denies irritation and Denies itchy eyes ENT Ears, Nose, Mouth, and Throat: Denies epistaxis, Denies facial pain, Denies lip swelling and Denies throat swelling *Cardiovascular Cardiovascular: Reports dyspnea, Reports dyspnea on exertion, Reports leg edema and Reports orthopnea *Respiratory Respiratory: Denies change in phlegm color, Reports chest congestion, Reports cough, Reports dyspnea, Reports dyspnea on exertion, Denies excessive phlegm production, Denies hemoptysis, Denies pain on inspiration, Denies pain with cough and Denies wheezing *Gastrointestinal Gastrointestinal: Denies abdominal pain, Denies belching, Reports bloating and Denies cramping Comments: Abdominal distention *Musculoskeletal Musculoskeletal: Reports back pain, Reports myalgias and Reports other (No small joint swelling or Pain) Psychiatric Psychiatric: Denies homicidal ideation and Denies suicidal ideation Endocrine Endocrine: Reports fatigue and Denies heat intolerance Hematologic/Lymphatic Hematologic/Lymphatic: Denies easy bleeding and Denies lymphadenopathy Allergic/Immunologic Allergic/Immunologic: Denies itchy eyes, Denies lip swelling, Denies throat swelling and Denies wheezing Pulmonology Exam Inpatient Vital signs and Labs for Last 24 Hours: Temp Pulse Resp BP Pulse Ox O2 Del Method O2 Flow Rate 97.7 F 103 H 17 137/80 96 Room Air 2 09/17/24 07:45 09/17/24 07:45 09/17/24 07:45 09/17/24 07:45 09/17/24 07:45 09/17/24 09:00 09/16/24 17:15 Laboratory Results - last 24 hr 09/17/24 06:38: WBC 16.0 H, RBC 3.41 L, Hgb 12.7 L, Hct 37.2 L, MCV 109.1 H, MCH 37.2 H, MCHC 34.1, RDW 15.9, Plt Count 290, MPV 10.9 H, Neut % (Auto) 81.4 H, Lymph % (Auto) 3.5 L, Taney % (Auto) 9.7 H, Eos % (Auto) 0.0 L, Baso % (Auto) 0.4, Neut # (Auto) 13.0 H, Lymph # (Auto) 0.6 L, Taney # (Auto) 1.5 H, Eos # (Auto) 0.0, Baso # (Auto) 0.1, Total Counted 100, Neutrophils % (Manual) 82 H, Band Neutrophils % 1.0, Lymphocytes % (Manual) 10, Monocytes % (Manual) 7, Platelet Estimate Normal, Macrocytosis 2+, Spherocytes 1+, Target Cells 1+, PT 12.3 H, INR 1.13 H, Sodium 135 L, Potassium 3.7, Chloride 104, Carbon Dioxide 22, Anion Gap 12.7, BUN 16, Creatinine 0.90, Estimated Creat Clear 120, Estimated GFR 86, Est GFR ( Amer) 105, Glucose 98, Calcium 7.7 L, Phosphorus 1.7 L, Magnesium 2.1, Total Bilirubin 25.5 H*, AST 302 H*, ALT 144 H, Alkaline Phosphatase 200 H, Total Protein 7.2, Albumin 3.6, Globulin 3.6 H, Albumin/Globulin Ratio 1.0 L I & O for Labs for Last 24 Hours: Intake & Output 09/14/24 09/15/24 09/16/24 09/17/24 23:59 23:59 23:59 23:59 Intake Total 855 / 855 1720 / 1720 2083 / 2183 100 / 100 Output Total 1650 / 1650 1100 / 1100 2475 / 2475 0 / 0 Balance -795 / -795 620 / 620 -392 / -292 100 / 100 Weight 205 lb 4.817 oz 209 lb 1.6 oz 210 lb 14.4 oz 212 lb 8 oz Microbiology Reports for the Last 24 Hours: Microbiology 09/15/24 14:07 Urine,Clean Catch Urine Culture - Final No growth. 09/15/24 08:20 Blood Blood Culture - Preliminary NO GROWTH AFTER 48 HOURS 09/15/24 08:20 Blood Blood Culture - Preliminary NO GROWTH AFTER 48 HOURS 09/14/24 15:45 Rectum CRE Surveillance Culture - Final Negative Constitutional: Present moderate distress Head: Present normocephalic and atraumatic ENT: Present normal exam, normal oropharynx and mucous membranes moist Neck: Present normal inspection and full ROM Respiratory: Present normal respiratory effort and able to speak in complete sentences; Absent prolonged expiratory phase, respiratory distress, rhonchi, stridor, wheezes, crackles or diminished air movement Cardiac: Present S1/S2, Tachycardia and radial pulses present GI: Present soft and distention; Absent tenderness or guarding Skin: Present intact; Absent cyanosis or jaundice Neuro: Present alert, awake and oriented x 3 Extremities: Present normal inspection; Absent clubbing or cyanosis Psychiatric: Present normal affect and cooperative Meds Home Medications and Allergies Home Medications ?Medication ?Instructions ?Recorded ?Confirmed ?Type testosterone 30 mg/actuation (1.5 2 pump topical DAILY hormone 01/01/22 09/13/24 History mL) transderm solution metered pump replacement omeprazole 40 mg capsule,delayed 40 mg PO BID 03/25/22 09/13/24 History release clopidogrel 75 mg tablet 75 mg PO DAILY 03/18/24 09/14/24 History diltiazem HCl 180 mg 180 mg PO BID #30 caps 05/25/24 09/13/24 Rx capsule,extended release 24 hr albuterol sulfate 90 mcg/actuation 2 puff inhalation QID PRN asthma 07/06/24 09/13/24 History aerosol inhaler potassium chloride 20 mEq 20 meq PO BID 09/13/24 09/13/24 History tablet,extended release New Prescriptions to Start Prescriptions: Allergies Allergy/AdvReac Type Severity Reaction Status Date / Time atorvastatin AdvReac Severe Unknown Verified 09/13/24 13:53 allergy reaction isosorbide AdvReac Mild Headache Verified 09/08/24 10:54 Results Laboratory Findings 09/17/24 06:38 09/17/24 06:38 PT/INR, D-dimer PT 12.3 seconds (9.2-12.1) H 09/17/24 06:38 INR 1.13 (0.9-1.1) H 09/17/24 06:38 Abnormal lab findings: Abnormal Labs 09/13/24 09/13/24 09/13/24 13:45 18:35 19:36 WBC 12.0 H RBC 3.70 L Hgb 13.3 L Hct 38.3 L MCV 103.5 H MCH 35.9 H MCHC MPV Neut % (Auto) 80.6 H Lymph % (Auto) 4.4 L Taney % (Auto) 11.1 H Eos % (Auto) Neut # (Auto) 9.7 H Lymph # (Auto) 0.5 L Taney # (Auto) 1.3 H Neutrophils % (Manual) Lymphocytes % (Manual) Monocytes % (Manual) PT 22.1 H INR 2.17 H Sodium Potassium 3.2 L Carbon Dioxide 19 L Anion Gap 17.2 H BUN 4 L Glucose 113 H Lactate Calcium 8.1 L Phosphorus Magnesium TIBC Iron Saturation Total Bilirubin 23.1 H* D Direct Bilirubin GGT AST 743 H* ALT 177 H Alkaline Phosphatase 306 H Ammonia 64 H Total Protein 8.3 H Albumin Globulin 4.4 H Albumin/Globulin Ratio 0.9 L Urine Protein 2+ A Urine Nitrate Urine Bilirubin 3+ A Plasma/Serum Alcohol 272 H 09/14/24 09/14/24 09/14/24 05:38 08:30 13:00 WBC 11.3 H RBC 3.35 L Hgb 12.2 L Hct 34.3 L MCV 102.4 H MCH 36.4 H MCHC 35.6 H MPV 10.8 H Neut % (Auto) 88.9 H Lymph % (Auto) 3.2 L Taney % (Auto) Eos % (Auto) 0.0 L Neut # (Auto) 10.1 H Lymph # (Auto) 0.4 L Taney # (Auto) Neutrophils % (Manual) Lymphocytes % (Manual) Monocytes % (Manual) PT 15.5 H INR 1.46 H Sodium 134 L Potassium 3.1 L Carbon Dioxide 17 L Anion Gap 17.1 H BUN 4 L Glucose 133 H Lactate 2.7 H 2.9 H Calcium 7.9 L Phosphorus 1.5 L Magnesium 1.2 L TIBC Iron Saturation Total Bilirubin 21.7 H* Direct Bilirubin GGT AST 627 H* ALT 156 H Alkaline Phosphatase 276 H Ammonia Total Protein Albumin Globulin 3.9 H Albumin/Globulin Ratio 0.9 L Urine Protein Urine Nitrate Urine Bilirubin Plasma/Serum Alcohol 09/14/24 09/14/24 09/15/24 15:55 17:19 05:26 WBC 13.6 H RBC 3.30 L Hgb 12.0 L Hct 34.5 L MCV 104.5 H MCH 36.4 H MCHC MPV 11.1 H Neut % (Auto) 85.9 H Lymph % (Auto) 2.5 L Taney % (Auto) Eos % (Auto) Neut # (Auto) 11.7 H Lymph # (Auto) 0.3 L Taney # (Auto) 1.3 H Neutrophils % (Manual) Lymphocytes % (Manual) Monocytes % (Manual) PT 12.4 H INR 1.15 H Sodium 134 L 135 L Potassium 2.9 L* Carbon Dioxide 18 L Anion Gap 15.9 H BUN 6 L D Glucose 172 H D 114 H D Lactate 2.4 H Calcium 7.9 L 7.9 L Phosphorus 2.3 L D Magnesium TIBC 186 L Iron Saturation 90.62180 H Total Bilirubin > 27.0 H* D 20.7 H* D Direct Bilirubin 21.9 H GGT 542 H AST 560 H* 428 H* ALT 156 H 136 H Alkaline Phosphatase 219 H 259 H Ammonia Total Protein Albumin 3.3 L Globulin 4.0 H Albumin/Globulin Ratio 0.9 L Urine Protein Urine Nitrate Urine Bilirubin Plasma/Serum Alcohol 09/15/24 09/16/24 09/17/24 14:07 05:24 06:38 WBC 17.7 H D 16.0 H RBC 3.24 L 3.41 L Hgb 11.7 L 12.7 L Hct 34.4 L 37.2 L MCV 106.2 H 109.1 H MCH 36.1 H 37.2 H MCHC MPV 11.2 H 10.9 H Neut % (Auto) 84.7 H 81.4 H Lymph % (Auto) 2.1 L 3.5 L Taney % (Auto) 9.7 H Eos % (Auto) 0.0 L 0.0 L Neut # (Auto) 15.0 H 13.0 H Lymph # (Auto) 0.4 L 0.6 L Taney # (Auto) 1.6 H 1.5 H Neutrophils % (Manual) 81 H 82 H Lymphocytes % (Manual) 3 L Monocytes % (Manual) 10 H PT 12.3 H 12.3 H INR 1.13 H 1.13 H Sodium 134 L 135 L Potassium 3.2 L Carbon Dioxide Anion Gap BUN Glucose Lactate Calcium 7.5 L 7.7 L Phosphorus 1.8 L 1.7 L Magnesium TIBC Iron Saturation Total Bilirubin 23.3 H* D 25.5 H* Direct Bilirubin GGT AST 276 H D 302 H* ALT 121 H 144 H Alkaline Phosphatase 170 H 200 H Ammonia Total Protein Albumin 3.4 L Globulin 3.3 H 3.6 H Albumin/Globulin Ratio 1.0 L 1.0 L Urine Protein 2+ A Urine Nitrate Positive A Urine Bilirubin 3+ A Plasma/Serum Alcohol Assessment and Plan *Assessment and plan (1) Dyspnea on exertion: Status: Acute Category: Medical Code(s): R06.09 - Other forms of dyspnea Plan Mr. Aguilar is a 59-year-old male admitted to the hospital on 09/13/2024 with elevated AST and ALT being managed in the hospital for acute alcoholic hepatitis, liver failure, metabolic encephalopathy, alcohol withdrawal pulmonary was called to manage his baseline COPD. Patient said he is a never smoker. 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 At baseline using albuterol inhaler 3-4 times per day with improving symptoms. Chest x-ray from 09/16/24 morning low-volume lung brandt. No dense consolidative airspace changes noted. Concerning for volume overlaod/ vascular congestion. No effusions noted. CT abdomen from admission lower lung brandt clear with no consolidative/airspace changes. No effusions. Leukocytosis relatively stable from yesterday. Platelet count within normal limits. CT abdomen from admission cholelithiasis without any evidence of acute cholecystitis. Abdominal ultrasound normal gallbladder wall thickening and no ductal dilatation. Patient currently being managed for acute alcoholic hepatitis. GI following. Lipase within normal limits from 09/13/2024 On examination bilateral rhonchorous breath sounds. No significant wheezing noted. On room air saturating 95%. Plan: -Albuterol to DuoNebs 4 times daily as needed -Oxygen supplementation as needed to maintain O2 saturation goal of 90% and above -Follow as an outpatient basis with a full PFT and a 6-minute walk testing -Follow-up with echocardiogram report
--- NOTE | 2024-09-17 10:30 | CA_ITS ---
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 Crude Unit: NAVEED Bean, RVS Ht: 5 ft 11 in Wt: 212lbs BSA: 2.16 BP: 137/80 mmHg Indications: ETOH abuse, CAD, DD, COPD, Ex-smoker, Anemia Hgb12.7, Liver failure, acute hepatitis Echo Enhancing Agent Comments: TRS: due to patient's contant movement and repositioning as well as body habitus 2D Dimensions IVSd 0.96 cm LVEF (Visual) 65.60 % PWd 0.97 cm LA Volume 42.00 mL LVDd 4.85 cm LA Volume Index 19.185543 mL/m2 (M/F) 16-34 LVDs 3.10 cm Left Atrium 3.30 cm M-Mode Dimensions RVDd 3.18 cm (0.9-2.6) LA Diam 3.58 cm (1.9-4.0) LVDd 5.56 cm (3.5-5.7) LVDs 4.24 cm (3.5-5.7) IVSd 0.81 cm (0.6-1.1) PWd 1.02 cm (0.6-1.1) EF (Teich) 46.80% EPSs 1.32 cm FS 23.70% EDV (Teich) 151.20 mL TAPSE 2.10 (<1.7) ESV (Teich) 80.40 mL LV Diastology E Decel Time 110 (160-240 msec) E/A Ratio 0.84 MED A' 9.70 cm/s LAT A' 10.50 cm/s Aortic Valve THIEN Index 0.91 cm2/m2 AoV Peak Giovany. 126.0 (50-130 cm/s) AO Peak GR. 6.40 mmHg AO Mean GR. 3.10 (<5 mmHg) AO VTI 22.6 (18-25 cm) THIEN (VTI) 2.01 (2.5-4.5 cm2) Mitral Valve MV A Velocity 66.0 (40-130 cm/s) E/A Ratio 0.84 Pulmonary Valve PV Peak Velocity 98.0 (50-150 cm/s) Left Ventricle The left ventricle is normal size. The left ventricular systolic function is normal. The left ventricular ejection fraction is within the normal range. There is increased LV wall thickness. There is normal LV segmental wall motion. The left ventricular diastolic function is normal. LVEF is 55%. Right Ventricle Right ventricle is mildly dilated. The right ventricular systolic function is normal. Atria The left atrium size is normal. The right atrium size is normal. There is no Doppler evidence of interatrial shunt. Aortic Valve Aortic valve is mildly thickened. Mild aortic regurgitation. There is no aortic valvular stenosis. Mitral Valve The mitral valve is normal in structure. No evidence of mitral valve stenosis. Mild mitral regurgitation. Tricuspid Valve Tricuspid valve is grossly normal in structure and function. Trace tricuspid regurgitation. There is insufficient TR jet to estimate RVSP. Pulmonic Valve The pulmonary valve is normal in structure. Trace pulmonic regurgitation. Great Vessels The aortic root is normal in size. The ascending aorta is normal in size. IVC is normal in size and collapses >50% with inspiration. Pericardium There is no pericardial effusion. Other Information Study Quality: Fair Conclusion Normal biventricular systolic function. Mild RV dilation. Mild AI, mild MR. Electronically signed by : Erika Nagy MD 09/17/2024 20:19:43
[2024-09-17 11:05] LABS: NT Pro Brain Natriuretic Pep. 298 pg/mL (0-125)
--- NOTE | 2024-09-17 11:31 | SW/DCPLANNER ---
Addendum entered by Vivi Matute 09/20/24 11:30: Per patient's she plans for patient to return back home at time of discharge. Patient is agreeable to return home once medically stable for discharge. Addendum entered by Vivi Matute 09/17/24 12:33: [facility] is unable to accept this patient due to insurance. Original Note: I spoke w/ this patient regarding plans once medically stable for discharge. PT/OT evaluated patient and recommended SNF level of care. Once speaking w/ patient at bedside his preference is to return home but asked that I contact his to discuss discharge> I spoke w/ via phone today whom stated discharge plans would be pending how patient is physically at time of discharge. I explained to the importance of starting placement incase it is still needed at time of discharge. is agreeable for patient information to be faxed to [facility], [facility], [place] and [facility]. I will continue to follow up w/ patient, , MD and facilities.
[2024-09-17] MEDS: FUROSEMIDE 40MG/4ML VIAL 40 MG IV (12:06)
[2024-09-17] MEDS: MULTIVITAMIN TABLET 1 EACH PO (16:35)
[2024-09-17] MEDS: OXYCODONE 5MG IMMEDIATE RELEASE TABLET 5 MG PO (18:47)
[2024-09-17] MEDS: ROPINIROLE 1MG TABLET 1 MG PO (20:19)
[2024-09-17] MEDS: TAMSULOSIN 0.4MG CAPSULE 0.8 MG PO (20:20)
--- NOTE | 2024-09-17 21:32 | EXP.PN ---
Subjective *Date: 09/18/24 *Time: 18:48 Interval history: Improving, LFTs did bump slightly today. Started Requip for suspected restless leg syndrome. Exam Data for Last 24 hours Vital signs and Labs for Last 24 Hours: Temp Pulse Resp BP Pulse Ox O2 Del Method O2 Flow Rate 98.4 F 102 H 17 116/67 94 L Room Air 2 09/17/24 19:41 09/17/24 19:41 09/17/24 19:41 09/17/24 19:41 09/17/24 19:41 09/17/24 19:41 09/16/24 17:15 Laboratory Results - last 24 hr 09/17/24 06:38: WBC 16.0 H, RBC 3.41 L, Hgb 12.7 L, Hct 37.2 L, MCV 109.1 H, MCH 37.2 H, MCHC 34.1, RDW 15.9, Plt Count 290, MPV 10.9 H, Neut % (Auto) 81.4 H, Lymph % (Auto) 3.5 L, [place] % (Auto) 9.7 H, Eos % (Auto) 0.0 L, Baso % (Auto) 0.4, Neut # (Auto) 13.0 H, Lymph # (Auto) 0.6 L, [place] # (Auto) 1.5 H, Eos # (Auto) 0.0, Baso # (Auto) 0.1, Total Counted 100, Neutrophils % (Manual) 82 H, Band Neutrophils % 1.0, Lymphocytes % (Manual) 10, Monocytes % (Manual) 7, Platelet Estimate Normal, Macrocytosis 2+, Spherocytes 1+, Target Cells 1+, PT 12.3 H, INR 1.13 H, Sodium 135 L, Potassium 3.7, Chloride 104, Carbon Dioxide 22, Anion Gap 12.7, BUN 16, Creatinine 0.90, Estimated Creat Clear 120, Estimated GFR 86, Est GFR ( Amer) 105, Glucose 98, Calcium 7.7 L, Phosphorus 1.7 L, Magnesium 2.1, Total Bilirubin 25.5 H*, AST 302 H*, ALT 144 H, Alkaline Phosphatase 200 H, NT-Pro-B Natriuret Pep 298 H, Total Protein 7.2, Albumin 3.6, Globulin 3.6 H, Albumin/Globulin Ratio 1.0 L I & O for Last 24 hours: Intake & Output 09/14/24 09/15/24 09/16/24 09/17/24 23:59 23:59 23:59 23:59 Intake Total 855 / 855 1720 / 1720 2083 / 2183 1180 / 1180 Output Total 1650 / 1650 1100 / 1100 2475 / 2475 2100 / 2100 Balance -795 / -795 620 / 620 -392 / -292 -920 / -920 Weight 93.123 kg 94.846 kg 95.663 kg 96.388 kg Microbiology Reports for the Last 24 Hours: Microbiology 09/15/24 14:07 Urine,Clean Catch Urine Culture - Final No growth. 09/15/24 08:20 Blood Blood Culture - Preliminary NO GROWTH AFTER 48 HOURS 09/15/24 08:20 Blood Blood Culture - Preliminary NO GROWTH AFTER 48 HOURS Constitutional Constitutional: no acute distress Comments: Jaundiced. *Routine HEENT Exam Head: Present normocephalic Eye: Present EOMI and PERRL ENT: Present mucous membranes moist *Routine Neck Exam Neck: Present supple; Absent lymphadenopathy *Routine Respiratory Exam Respiratory: Present CTA bilaterally *Routine Cardiovascular Exam Cardiovascular: Present RRR *Routine Abdominal Exam Abdominal: Present normoactive bowel sounds, firm and organomegaly Comments: Marked hepatomegaly *Routine Extremities Exam Extremities: Absent cyanosis, clubbing or edema *Routine Skin Exam Skin: Present warm; Absent rash *Routine Neurological Exam Neurological: Present alert Assessment and Plan *Assessment and plan (1) Acute alcoholic hepatitis: Status: Acute Category: Medical Code(s): K70.10 - Alcoholic hepatitis without ascites (2) Liver failure: Status: Acute Qualifiers: Hepatic coma status: without hepatic coma Liver failure chronicity: acute Qualified Code(s): K72.00 - Acute and subacute hepatic failure without coma Category: Medical Code(s): K72.90 - Hepatic failure, unspecified without coma (3) Jaundice: Status: Acute Category: Medical Code(s): R17 - Unspecified jaundice (4) Asterixis: Status: Acute Category: Medical Code(s): R27.8 - Other lack of coordination (5) Alcohol intoxication: Status: Acute Qualifiers: Complication of substance-induced condition: uncomplicated Qualified Code(s): F10.920 - Alcohol use, unspecified with intoxication, uncomplicated Category: Medical Code(s): F10.929 - Alcohol use, unspecified with intoxication, unspecified (6) Transaminitis: Status: Acute Category: Medical Code(s): R74.01 - Elevation of levels of liver transaminase levels (7) Primary hypertension: Status: Chronic Category: Medical Code(s): I10 - Essential (primary) hypertension (8) COPD (chronic obstructive pulmonary disease): Status: Chronic Qualifiers: COPD type: unspecified COPD Qualified Code(s): J44.9 - Chronic obstructive pulmonary disease, unspecified Category: Medical Code(s): J44.9 - Chronic obstructive pulmonary disease, unspecified (9) GERD (gastroesophageal reflux disease): Status: Chronic Qualifiers: Esophagitis presence: esophagitis presence not specified Qualified Code(s): K21.9 - Gastro-esophageal reflux disease without esophagitis Category: Medical Code(s): K21.9 - Gastro-esophageal reflux disease without esophagitis (10) HLD (hyperlipidemia): Status: Chronic Qualifiers: Hyperlipidemia type: mixed hyperlipidemia Qualified Code(s): E78.2 - Mixed hyperlipidemia Category: Medical Code(s): E78.5 - Hyperlipidemia, unspecified (11) Coronary artery disease: Status: Chronic Qualifiers: Associated angina: without angina Coronary Disease-Associated Artery/Lesion type: [place] artery [place] vs. transplanted heart: [place] heart Qualified Code(s): I25.10 - Atherosclerotic heart disease of [place] coronary artery without angina pectoris Category: Medical Code(s): I25.10 - Atherosclerotic heart disease of [place] coronary artery without angina pectoris (12) Coagulopathy: Status: Acute Category: Medical Code(s): D68.9 - Coagulation defect, unspecified Plan Pritesh Burns is a 59-year-old male who presented acutely intoxicated with acute liver failure and alcohol withdrawal. Discussed case with ER physician and GI prior to admission. Patient is critically ill. High risk for decompensation. #Acute alcoholic hepatitis (severe) #Acute liver failure #Alcohol intoxication #High anion gap metabolic acidosis #Hepatic metabolic encephalopathy #Severe protein calorie malnutrition - Marieey's discriminant function of 62.4, MELD score 27. Confer poor prognosis and 20% 3-month mortality. Per my review of CT of abdomen, patient has severely enlarged liver, no appreciable varices however. No ascites. - Initial alcohol level elevated 272. ? Presented with transaminitis, AST/ALT/ALP/bili 743/177/306/23. Hepatitis panel normal. ? AST/ALT/ALP improving since admission, bumped slightly today. Overall improving. ? RUQ ultrasound 09/15/2024 revealed hepatomegaly, cholelithiasis with no CBD dilation. ? Continue Solu-Medrol 40 mg daily, orally for first-pass metabolism through the liver. Can consider IV if not tolerating oral due to nausea/vomiting. ? Continue Compazine as needed for nausea/vomiting. - Continue rifaximin 550 mg 3 times daily for hepatic encephalopathy, asterixis, hyperammonia. ? Discussed case with GI who is following, assisting with care as above. - Follow-up morning CBC, CMP, magnesium, INR/PT, phosphorus ordered daily - Nutrition consulted to assist with dietary recommendations and risk for malnutrition. Patient at risk for refeeding syndrome. Recommend boost/protein supplement with trays - brand marketing specialist consulted. ? Follow-up hemochromatosis PCR. Iron studies do show some iron overload, iron saturation close to 90%. #Alcohol withdrawal #Wernicke's encephalopathy - Acutely intoxicated with initial alcohol level of 272. Initiated on CIWA protocol with lorazepam due to acute liver injury. Will hold on phenobarbital due to contraindication in acute liver failure. - Multivitamin with supplementation including folate and thiamine daily. Rally pack daily. ? CIWA scores improving less than 10 today. ? Continue gabapentin 300 mg twice daily. Uptitrate based on response. ? Continue IV thiamine 300 mg every 8 hours. - Seizure precautions ? PT/OT following, recommending SNF at this time. Case management assisting with placement. #Acute urinary retention ? Continues to have urinary retention requiring straight caths. Patient refuses Mcgarry. ? Continue tamsulosin 0.8 mg daily. ? Continue to monitor urine output. #Peripheral neuropathy #Suspected restless leg syndrome ? Started Requip 1mg, cautious with liver dysfunction. #Hypokalemia #Hypomagnesemia #Hypophosphatemia ? Initial potassium 2.9, magnesium 1.2, phosphorus 1.5. Repleted with IV and oral. Follow-up repeat potassium, magnesium, phosphorus levels. #Low folic acid ? Folic acid 2.41. Continue daily folic acid 1 mg. ? B12 normal 747 Hypertension: Diltiazem 180 mg extended release twice daily COPD: On room air. Continue DuoNebs every 6 hours prn. Goal sats greater 90%. In no acute exacerbation at this time GERD: Continue pantoprazole as formulary conversion 40 mg twice daily Full code Anticoagulation contraindicated given coagulopathy and INR of 1.13 Regular diet with protein supplementation
[2024-09-18] VITALS: BP 161/96; PULSE 116; RESP 17; TEMP 36.8; O2SAT 96
[2024-09-18] MEDS: LORazepam 2MG/ML VIAL 1 MG IV (00:09)
[2024-09-18] MEDS: PIPERCILLIN/TAZO 3.375 GM in 0.9 % SODIUM CHLORIDE 50 ML IV ×3 (01:07→16:17)
--- NOTE | 2024-09-18 03:13 | CT_ITS ---
PROCEDURE INFORMATION: Exam: CT Head Without Contrast Exam date and time: 09/18/2024 3:25 AM Age: 59 years old Clinical indication: Injury or trauma; Fall; Blunt trauma (contusions or hematomas); Additional info: Fall hit head TECHNIQUE: Imaging protocol: Computed tomography of the head without contrast. Radiation optimization: All CT scans at this facility use at least one of these dose optimization techniques: automated exposure control; mA and/or kV adjustment per patient size (includes targeted exams where dose is matched to clinical indication); or iterative reconstruction. COMPARISON: MR CERVICAL SPINE WO CON 09/10/2019 8:12 AM FINDINGS: Brain: Mild diffuse atrophy.. No hemorrhage. Unremarkable white matter. No mass effect. Cerebral ventricles: No ventriculomegaly. Paranasal sinuses: Visualized sinuses are unremarkable. No fluid levels. Mastoid air cells: Visualized mastoid air cells are well aerated. Bones: Unremarkable. No acute fracture. Soft tissues: Unremarkable. IMPRESSION: No acute intracranial abnormality.
--- NOTE | 2024-09-18 03:49 | PC.NURSE ---
0330: Pt. had a witnessed fall. Bed alarm heard, Nurse (mary), and tech (daphnie) were entering room. Pt. was already out of bed, and before I could get to him he stumbled and fell hitting head on a bedside commode. Pt. assisted up back to bed, sitting on side of bed, No visable injuries, Pt. fell around 0, Fatuma Oliveira APRN notified 310. No loss of consciousness STAT head CT ordered. Pt. has been intermittently confused. Bed alarm on all night. Pt. has been getting out of bed around every 30 minutes or so. Multiple staff members respond to each alarm. Call anderson was in reach when pt was in bed. Pt. with asist x 2 to use urinal at the bedside. This is patients second fall. Pt. transported to CT scan via bed, accompied by Nurse and Tech. Pt. alert, insisting he is going home. Vital signs stable 311: Fatuma Oliveira at bedside to evaluate patient.
[2024-09-18 04:00] VITALS: BP 124/68; PULSE 115; RESP 17; TEMP 37.1; O2SAT 93; BMI 28.0
[2024-09-18 07:16] LABS: Basophils # 0.2 K/mm3 (0-0.2); Basophils % 0.8 % (0.1-2.0); Hematocrit 39.1 % (42.0-52.0); Hemoglobin 13.5 g/dL (14.1-18.0); Lymphocytes # 0.9 K/mm3 (0.7-4.5); Lymphocytes % 4.2 % (10-50); Mean Corpuscular HGB Conc 34.5 g/dL (31.8-35.4); Mean Corpuscular Hemoglobin 36.8 pg (27.0-31.2); Mean Corpuscular Volume 106.5 fl (80-94); Mean Platelet Volume 10.8 fl (7.4-10.4); Monocytes # 2.3 K/mm3 (0.1-1.0); Monocytes % 10.9 % (1.7-9.3); Neutrophils # 16.6 K/mm3 (1.8-7.8); Neutrophils % 78.7 % (37.0-80.0); Platelet Count 353 K/mm3 (142-424); Red Blood Count 3.67 M/mm3 (4.60-6.20); Red Cell Distribution Width 16.2 % (11.5-17.5); White Blood Count 21.1 K/mm3 (4.8-10.8)
[2024-09-18 07:21] LABS: MANUAL DIFFERENTIAL MANUAL DIFFERENTIAL (MANUAL DIFF)
[2024-09-18 07:23] LABS: Chloride 103 mmol/L (98-107)
[2024-09-18 07:24] LABS: Potassium 3.6 mmoL/L (3.5-5.1); Sodium 137 mmol/L (136-145)
[2024-09-18 07:26] LABS: Anion Gap 14.6 mEq/L (5-15); Blood Urea Nitrogen 19 mg/dl (9-20); Carbon Dioxide 23 mmol/L (22.0-30.0); Creatinine Clearance Estimated 96 mL/min (50-200); Estimated Glomerular Filt Rate 69 ml/min (>60); GFR (African American) 83 ML/MIN (>60)
[2024-09-18 07:27] LABS: Alanine Aminotransferase 196 U/L (12-78); Albumin/Globulin Ratio 1.1 (1.1-1.8); Alkaline Phosphatase 229 U/L (38-126); Aspartate Amino Transferase 456 U/L (17-59); Globulin 3.8 g/dL (1.3-3.2); Glucose 93 mg/dl (74-100); Magnesium 1.9 mg/dl (1.6-2.3); Total Protein,Serum 7.8 g/dl (6.3-8.2)
[2024-09-18 07:37] LABS: Bilirubin,Total 29.2 mg/dl (0.2-1.3)
[2024-09-18] MEDS: guaiFENesin 600 MG TAB.ER.12H PO ×2 (07:54→20:27)
[2024-09-18] MEDS: PANTOPRAZOLE 40MG VIAL 40 MG IV ×2 (07:54→20:27)
[2024-09-18] MEDS: GABAPENTIN 300MG CAPSULE 300 MG PO ×2 (07:54→20:27)
[2024-09-18] MEDS: SODIUM CHLORIDE 0.9% 10ML VIAL 10 ML IV (07:54)
[2024-09-18] MEDS: RIFAXIMIN 550MG TABLET 550 MG PO ×3 (07:54→20:27)
[2024-09-18] MEDS: FOLIC ACID 1MG TABLET 1 MG PO (07:55)
[2024-09-18] MEDS: dilTIAZem HCL 180MG CAP.ER.24H 180 MG PO ×2 (07:55→20:27)
[2024-09-18 08:00] VITALS: BP 121/71; PULSE 113; RESP 22; TEMP 36.6; O2SAT 95
[2024-09-18] MEDS: LORazepam 1MG TABLET 1 MG PO ×2 (08:18→12:21)
--- NOTE | 2024-09-18 08:33 | PC.NURSE ---
This RN asked provider if he wanted to replace pt's mag of 1.9 per protocol. MD stated not to replace.
[2024-09-18] MEDS: THIAMINE HCL 300 MG in 0.9 % SODIUM CHLORIDE 50 ML 212 MG IV ×2 (09:10→18:13)
[2024-09-18] MEDS: MVI, ADULT NO.1 WITH VIT K 10 ML, THIAMINE HCL 100 MG, MAGNESIUM SULFATE 2 GM in LACTAT... 125 ML IV (09:36)
--- NOTE | 2024-09-18 10:44 | P.PN_ITS ---
Subjective *Date: 09/18/24 *Time: 10:44 Medical Exam Vital signs and Labs for Last 24 Hours: Vital Signs Temp Pulse Resp BP Pulse Ox O2 Del Method 09/18/24 09:00 Room Air 09/18/24 08:00 Room Air 09/18/24 08:00 97.9 F 113 H 22 121/71 95 Room Air 09/18/24 05:00 Room Air 09/18/24 04:00 98.7 F 115 H 17 124/68 93 L Room Air 09/18/24 03:00 Room Air 09/18/24 01:00 Room Air 09/18/24 00:00 98.3 F 116 H 17 161/96 H 96 Room Air 09/17/24 23:00 Room Air 09/17/24 21:00 Room Air 09/17/24 20:00 Room Air 09/17/24 19:41 98.4 F 102 H 17 116/67 94 L Room Air 09/17/24 18:50 Room Air 09/17/24 17:00 Room Air 09/17/24 16:00 98.3 F 99 H 16 121/74 94 L Room Air 09/17/24 15:00 Room Air 09/17/24 13:00 Room Air 09/17/24 12:00 98 F 111 H 17 138/90 95 Room Air 09/17/24 10:52 Room Air Intake and Output 09/17/24 09/18/24 09/18/24 23:59 07:59 15:59 Intake Total 360 / 1230 50 / 525 475 / 525 Output Total 350 / 2750 850 / 1000 150 / 1000 Balance 10 / -1520 -800 / -475 325 / -475 Intake: Intake, Oral Amount 360 / 1080 375 / 375 Intake, Total IV Amount 50 / 150 100 / 150 Pipercillin/Tazo 3.375 gm In 0. 50 / 100 50 / 100 9 % Sodium Chloride 50 ml @ 100 mls/hr IV Q8H MALDONADO Rx#:[id number] Thiamine HCl 300 mg In 0.9 % 50 / 50 Sodium Chloride 50 ml @ 212 mls /hr IV Q8H MALDONADO Rx#:[id number] Output: Output, Urine Amount 350 / 2750 850 / 1000 150 / 1000 Other: Number of Unmeasured Voids 1 0 1 Number of Bowel Movements 1 Weight 93.939 kg Patient Weight 09/18/24 23:59 Weight 93.939 kg Laboratory Results - last 24 hr 09/17/24 06:38: NT-Pro-B Natriuret Pep 298 H 09/18/24 07:01: WBC 21.1 H* D, RBC 3.67 L, Hgb 13.5 L, Hct 39.1 L, MCV 106.5 H, MCH 36.8 H, MCHC 34.5, RDW 16.2, Plt Count 353, MPV 10.8 H, Neut % (Auto) 78.7, Lymph % (Auto) 4.2 L, [place] % (Auto) 10.9 H, Eos % (Auto) 0.0 L, Baso % (Auto) 0.8, Neut # (Auto) 16.6 H, Lymph # (Auto) 0.9, [place] # (Auto) 2.3 H, Eos # (Auto) 0.0, Baso # (Auto) 0.2, Sodium 137, Potassium 3.6, Chloride 103, Carbon Dioxide 23, Anion Gap 14.6, BUN 19, Creatinine 1.10 D, Estimated Creat Clear 96, Estimated GFR 69, Est GFR ( Amer) 83 D, Glucose 93, Calcium 8.0 L, Magnesium 1.9, Total Bilirubin 29.2 H* D, AST 456 H* D, ALT 196 H D, Alkaline Phosphatase 229 H, Total Protein 7.8, Albumin 4.0 D, Globulin 3.8 H, Albumin/Globulin Ratio 1.1 I & O for Labs for Last 24 Hours: Intake & Output 09/15/24 09/16/24 09/17/24 09/18/24 23:59 23:59 23:59 23:59 Intake Total 1720 / 1720 2083 / 2183 1180 / 1230 525 / 525 Output Total 1100 / 1100 2475 / 2475 2450 / 2750 1000 / 1000 Balance 620 / 620 -392 / -292 -1270 / -1520 -475 / -475 Weight 94.846 kg 95.663 kg 96.388 kg 93.939 kg Microbiology Reports for the Last 24 Hours: Microbiology 09/15/24 14:07 Urine,Clean Catch Urine Culture - Final No growth. 09/15/24 08:20 Blood Blood Culture - Preliminary NO GROWTH AFTER 48 HOURS 09/15/24 08:20 Blood Blood Culture - Preliminary NO GROWTH AFTER 48 HOURS The patient's infection will respond to the chosen ABx?: Yes Is the patient receiving the right drug, dose, and route?: Yes Could a more targeted ABx be ordered?: No (WBC INCREASED, AFEBRILE, CX -, CONTINUE CURRENT ABX.)
[2024-09-18 11:36] VITALS: BP 122/69; PULSE 102; RESP 18; TEMP 36.8; O2SAT 93
[2024-09-18 11:57] LABS: Lymphocytes % 3 % (10-50); Monocytes % 9 % (2-9); Neutrophils % 88 % (42-76); RBC Morphology Normal; Total Cells Counted 100
[2024-09-18 12:00] LABS: Platelet Estimate Slight Increase
[2024-09-18 15:03] LABS: Basophils # 0.1 K/mm3 (0-0.2); Basophils % 0.5 % (0.1-2.0); Eosinophils % 0.1 % (0.1-12.0); Hemoglobin 12.2 g/dL (14.1-18.0); Lymphocytes # 0.3 K/mm3 (0.7-4.5); Lymphocytes % 1.9 % (10-50); Mean Corpuscular HGB Conc 33.9 g/dL (31.8-35.4); Mean Corpuscular Hemoglobin 36.6 pg (27.0-31.2); Mean Corpuscular Volume 108.1 fl (80-94); Mean Platelet Volume 10.6 fl (7.4-10.4); Monocytes # 1.1 K/mm3 (0.1-1.0); Monocytes % 6.5 % (1.7-9.3); Neutrophils # 14.1 K/mm3 (1.8-7.8); Platelet Count 290 K/mm3 (142-424); Red Blood Count 3.33 M/mm3 (4.60-6.20); Red Cell Distribution Width 16.1 % (11.5-17.5); White Blood Count 16.4 K/mm3 (4.8-10.8)
[2024-09-18 15:11] LABS: Albumin Level 3.6 g/dl (3.5-5.0); Chloride 103 mmol/L (98-107); Potassium 3.8 mmoL/L (3.5-5.1); Sodium 136 mmol/L (136-145)
[2024-09-18 15:14] LABS: Alanine Aminotransferase 192 U/L (12-78); Alkaline Phosphatase 193 U/L (38-126); Anion Gap 13.8 mEq/L (5-15); Aspartate Amino Transferase 461 U/L (17-59); Bilirubin,Total 26.4 mg/dl (0.2-1.3); Blood Urea Nitrogen 17 mg/dl (9-20); Calcium 7.5 mg/dl (8.4-10.2); Carbon Dioxide 23 mmol/L (22.0-30.0); Creatinine Clearance Estimated 106 mL/min (50-200); Estimated Glomerular Filt Rate 76 ml/min (>60); GFR (African American) 93 ML/MIN (>60); Globulin 3.5 g/dL (1.3-3.2); Glucose 133 mg/dl (74-100); Total Protein,Serum 7.1 g/dl (6.3-8.2)
[2024-09-18 16:00] VITALS: BP 114/81; PULSE 98; RESP 18; TEMP 36.7; O2SAT 97
[2024-09-18] MEDS: MULTIVITAMIN TABLET 1 EACH PO (16:17)
--- NOTE | 2024-09-18 17:36 | PC.NURSE ---
Pt has done better this shift CIWA's have been 8,5,& 6. His speech is much more clear this evening. VSS. Lung sounds diminished. Skin and eyes are still jaundiced. Seems more relaxed this evening, less fidgety and agitated. He has has several visitors today. SRNA remains within arms reach. Ambulating with x1 assist with a walker. Peer support has been at bedside several times today.
--- NOTE | 2024-09-18 18:48 | EXP.PN ---
Subjective *Date: 09/18/24 *Time: 18:49 Interval history: Patient overall doing well, however unfortunately had a fall last night and hit forehead on toilet. CT head negative. LFTs bumped today, restarted IV rally pack and acetylcysteine which patient previously refused. Exam Data for Last 24 hours Vital signs and Labs for Last 24 Hours: Temp Pulse Resp BP Pulse Ox O2 Del Method O2 Flow Rate 98.1 F 98 H 18 114/81 97 Room Air 2 09/18/24 16:00 09/18/24 16:00 09/18/24 16:00 09/18/24 16:00 09/18/24 16:00 09/18/24 17:00 09/16/24 17:15 Laboratory Results - last 24 hr 09/18/24 07:01: WBC 21.1 H* D, RBC 3.67 L, Hgb 13.5 L, Hct 39.1 L, MCV 106.5 H, MCH 36.8 H, MCHC 34.5, RDW 16.2, Plt Count 353, MPV 10.8 H, Neut % (Auto) 78.7, Lymph % (Auto) 4.2 L, [place] % (Auto) 10.9 H, Eos % (Auto) 0.0 L, Baso % (Auto) 0.8, Neut # (Auto) 16.6 H, Lymph # (Auto) 0.9, [place] # (Auto) 2.3 H, Eos # (Auto) 0.0, Baso # (Auto) 0.2, Total Counted 100, Neutrophils % (Manual) 88 H, Lymphocytes % (Manual) 3 L, Monocytes % (Manual) 9, Platelet Estimate Slight increase, RBC Morphology Normal, Sodium 137, Potassium 3.6, Chloride 103, Carbon Dioxide 23, Anion Gap 14.6, BUN 19, Creatinine 1.10 D, Estimated Creat Clear 96, Estimated GFR 69, Est GFR ( Amer) 83 D, Glucose 93, Calcium 8.0 L, Magnesium 1.9, Total Bilirubin 29.2 H* D, AST 456 H* D, ALT 196 H D, Alkaline Phosphatase 229 H, Total Protein 7.8, Albumin 4.0 D, Globulin 3.8 H, Albumin/Globulin Ratio 1.1 09/18/24 15:00: WBC 16.4 H, RBC 3.33 L, Hgb 12.2 L, Hct 36.0 L, MCV 108.1 H, MCH 36.6 H, MCHC 33.9, RDW 16.1, Plt Count 290, MPV 10.6 H, Neut % (Auto) 86.0 H, Lymph % (Auto) 1.9 L, [place] % (Auto) 6.5, Eos % (Auto) 0.1, Baso % (Auto) 0.5, Neut # (Auto) 14.1 H, Lymph # (Auto) 0.3 L, [place] # (Auto) 1.1 H, Eos # (Auto) 0.0, Baso # (Auto) 0.1, Sodium 136, Potassium 3.8, Chloride 103, Carbon Dioxide 23, Anion Gap 13.8, BUN 17, Creatinine 1.00, Estimated Creat Clear 106, Estimated GFR 76, Est GFR ( Amer) 93, Glucose 133 H D, Calcium 7.5 L, Total Bilirubin 26.4 H*, AST 461 H*, ALT 192 H, Alkaline Phosphatase 193 H, Total Protein 7.1, Albumin 3.6, Globulin 3.5 H, Albumin/Globulin Ratio 1.0 L I & O for Last 24 hours: Intake & Output 09/15/24 09/16/24 09/17/24 09/18/24 23:59 23:59 23:59 23:59 Intake Total 1720 / 1720 2083 / 2183 1180 / 1230 1355 / 1355 Output Total 1100 / 1100 2475 / 2475 2450 / 2750 1550 / 1550 Balance 620 / 620 -392 / -292 -1270 / -1520 -195 / -195 Weight 94.846 kg 95.663 kg 96.388 kg 93.939 kg Constitutional Constitutional: no acute distress Comments: Jaundiced. *Routine HEENT Exam Head: Present normocephalic Eye: Present EOMI and PERRL ENT: Present mucous membranes moist *Routine Neck Exam Neck: Present supple; Absent lymphadenopathy *Routine Respiratory Exam Respiratory: Present CTA bilaterally *Routine Cardiovascular Exam Cardiovascular: Present RRR *Routine Abdominal Exam Abdominal: Present normoactive bowel sounds, firm and organomegaly Comments: Marked hepatomegaly *Routine Extremities Exam Extremities: Absent cyanosis, clubbing or edema *Routine Skin Exam Skin: Present warm; Absent rash *Routine Neurological Exam Neurological: Present alert Assessment and Plan *Assessment and plan (1) Acute alcoholic hepatitis: Status: Acute Category: Medical Code(s): K70.10 - Alcoholic hepatitis without ascites (2) Liver failure: Status: Acute Qualifiers: Hepatic coma status: without hepatic coma Liver failure chronicity: acute Qualified Code(s): K72.00 - Acute and subacute hepatic failure without coma Category: Medical Code(s): K72.90 - Hepatic failure, unspecified without coma (3) Jaundice: Status: Acute Category: Medical Code(s): R17 - Unspecified jaundice (4) Asterixis: Status: Acute Category: Medical Code(s): R27.8 - Other lack of coordination (5) Alcohol intoxication: Status: Acute Qualifiers: Complication of substance-induced condition: uncomplicated Qualified Code(s): F10.920 - Alcohol use, unspecified with intoxication, uncomplicated Category: Medical Code(s): F10.929 - Alcohol use, unspecified with intoxication, unspecified (6) Transaminitis: Status: Acute Category: Medical Code(s): R74.01 - Elevation of levels of liver transaminase levels (7) Primary hypertension: Status: Chronic Category: Medical Code(s): I10 - Essential (primary) hypertension (8) COPD (chronic obstructive pulmonary disease): Status: Chronic Qualifiers: COPD type: unspecified COPD Qualified Code(s): J44.9 - Chronic obstructive pulmonary disease, unspecified Category: Medical Code(s): J44.9 - Chronic obstructive pulmonary disease, unspecified (9) GERD (gastroesophageal reflux disease): Status: Chronic Qualifiers: Esophagitis presence: esophagitis presence not specified Qualified Code(s): K21.9 - Gastro-esophageal reflux disease without esophagitis Category: Medical Code(s): K21.9 - Gastro-esophageal reflux disease without esophagitis (10) HLD (hyperlipidemia): Status: Chronic Qualifiers: Hyperlipidemia type: mixed hyperlipidemia Qualified Code(s): E78.2 - Mixed hyperlipidemia Category: Medical Code(s): E78.5 - Hyperlipidemia, unspecified (11) Coronary artery disease: Status: Chronic Qualifiers: Associated angina: without angina Coronary Disease-Associated Artery/Lesion type: [place] artery [place] vs. transplanted heart: [place] heart Qualified Code(s): I25.10 - Atherosclerotic heart disease of [place] coronary artery without angina pectoris Category: Medical Code(s): I25.10 - Atherosclerotic heart disease of [place] coronary artery without angina pectoris (12) Coagulopathy: Status: Acute Category: Medical Code(s): D68.9 - Coagulation defect, unspecified Plan Pritesh Burns is a 59-year-old male who presented acutely intoxicated with acute liver failure and alcohol withdrawal. Discussed case with ER physician and GI prior to admission. Patient is critically ill. High risk for decompensation. #Acute alcoholic hepatitis (severe) #Acute liver failure #Alcohol intoxication #High anion gap metabolic acidosis #Hepatic metabolic encephalopathy #Severe protein calorie malnutrition - [place]'s discriminant function of 62.4, MELD score 27. Confer poor prognosis and 20% 3-month mortality. Per my review of CT of abdomen, patient has severely enlarged liver, no appreciable varices however. No ascites. - Initial alcohol level elevated 272. ? Presented with transaminitis, AST/ALT/ALP/bili 743/177/306/23. Hepatitis panel normal. ? AST/ALT/ALP improving since admission, bumped slightly today. Likely secondary to dehydration, diuresis yesterday. Overall improving. ? RUQ ultrasound 09/15/2024 revealed hepatomegaly, cholelithiasis with no CBD dilation. ? Continue Solu-Medrol 40 mg daily, orally for first-pass metabolism through the liver. Can consider IV if not tolerating oral due to nausea/vomiting. ? Continue Compazine as needed for nausea/vomiting. - Continue rifaximin 550 mg 3 times daily for hepatic encephalopathy, asterixis, hyperammonia. ? Restarted acetylcysteine 6000 mg, patient previously refused due to taste. ? Discussed case with GI who is following, assisting with care as above. - Follow-up morning CBC, CMP, magnesium, INR/PT, phosphorus ordered daily - Nutrition consulted to assist with dietary recommendations and risk for malnutrition. Patient at risk for refeeding syndrome. Recommend boost/protein supplement with trays - special forces specialist consulted. ? Follow-up hemochromatosis PCR. Iron studies do show some iron overload, iron saturation close to 90%. #Alcohol withdrawal #Wernicke's encephalopathy #Fall - Acutely intoxicated with initial alcohol level of 272. Initiated on CIWA protocol with lorazepam due to acute liver injury. Will hold on phenobarbital due to contraindication in acute liver failure. - Multivitamin with supplementation including folate and thiamine daily. Rally pack daily. ? Patient did have a fall overnight, hit his forehead slightly on the toilet. Small bruise. CT head with no acute findings. Patient has no focal neurological deficits, alert and oriented. ? CIWA scores improving less than 10 today. ? Continue gabapentin 300 mg twice daily. Uptitrate based on response. ? Continue IV thiamine 300 mg every 8 hours. - Seizure precautions ? PT/OT following, recommending SNF at this time. Case management assisting with placement. #Acute urinary retention ? Continues to have urinary retention requiring straight caths. Patient refuses Mcgarry. ? Continue tamsulosin 0.8 mg daily. ? Continue to monitor urine output. #Peripheral neuropathy #Suspected restless leg syndrome ? Increased Requip 2 mg, cautious with liver dysfunction. #Hypokalemia #Hypomagnesemia #Hypophosphatemia ? Initial potassium 2.9, magnesium 1.2, phosphorus 1.5. Repleted with IV and oral. Follow-up repeat potassium, magnesium, phosphorus levels. #Low folic acid ? Folic acid 2.41. Continue daily folic acid 1 mg. ? B12 normal 747 Hypertension: Diltiazem 180 mg extended release twice daily COPD: On room air. Continue DuoNebs every 6 hours prn. Goal sats greater 90%. In no acute exacerbation at this time GERD: Continue pantoprazole as formulary conversion 40 mg twice daily Full code Anticoagulation contraindicated given coagulopathy and INR of 1.13 Regular diet with protein supplementation
[2024-09-18 20:00] VITALS: BP 115/63; PULSE 96; RESP 17; TEMP 36.8; O2SAT 94
[2024-09-18] MEDS: ROPINIROLE 1MG TABLET 2 MG PO (20:28)
[2024-09-18] MEDS: TAMSULOSIN 0.4MG CAPSULE 0.8 MG PO (20:28)
--- NOTE | 2024-09-18 21:02 | PEERSUPPORT ---
Peer Support Note Patient Information Patient Information: DOS: 09/18/2024 ? Reason: ETOH/AUD ? Nurses inform ps, pt had a rough night with a fall and urges to want to leave and go home. ? Ps follow up at bedside, nurse aid one on one observing to monitor him for high fall risk. ? Pt says he has had a day, and doctor is saying he needs to eat but he does not have an appetite. Ps explores possible foods he may want or be able to eat. Pt stated he was at [facility] and they brought him strawberry boost shakes, he liked them, and fruit in a cup. He does like sweet tea. ? Ps acted as advocate contacting dietary to bring the following: fruit cup, strawberry boost shake, and a pitcher of sweet tea. ? Ps and pt discuss briefly his history, with working, family, and values. ? Pt is upset he is not able to go to temple on Friday. ? Ps assures him that a temple service will be on television on Friday morning, and the nurses will help him find it. ? Pt is pleased by this and hopeful. ? Ps? will return for follow up. ? Ps follow up: ? Pt is resting in bed, nurse aid at bedside monitoring for fall risk. ? Ps will follow up on Friday09/20/2024 to further discuss a plan of action or schedule an appointment with [facility] for specialized treatment of alcohol use disorder.
[2024-09-19] VITALS (7 sets, daily range): BP systolic 110–142; BP diastolic 59–77; PULSE 81–96; RESP 16–18; TEMP 36.4–37.1; O2SAT 93–97; BMI 26.9
[2024-09-19] MEDS: THIAMINE HCL 300 MG in 0.9 % SODIUM CHLORIDE 50 ML 212 MG IV ×3 (01:10→17:01)
--- NOTE | 2024-09-19 04:50 | PC.NURSE ---
Addendum entered by Amber Agrawal RN 09/19/24 05:59: Pt more alert this AM oriented X 3. He is complaining of pain to his feet. Medicated with oxycodone 5 mg per OCT Original Note: Pt has slept most of the shift but when he has been awake he has been oriented only to self. CIWA has been 8 throughout the night .Pt has not had any agitation and has rested quietly. Noted with tremors. Pt has been up to BR a couple of times this shift with assist One on one observation provided through the night. VS have been WNL for pt.
--- NOTE | 2024-09-19 05:31 | PC.NURSE ---
offered to assist pt with washing up in next hour. PT declined and stated he wished to sleep as long as possible.
[2024-09-19 05:54] LABS: Basophils # 0.1 K/mm3 (0-0.2); Basophils % 0.5 % (0.1-2.0); Eosinophils % 0.1 % (0.1-12.0); Hematocrit 35.4 % (42.0-52.0); Hemoglobin 11.8 g/dL (14.1-18.0); Lymphocytes # 1.1 K/mm3 (0.7-4.5); MANUAL DIFFERENTIAL MANUAL DIFFERENTIAL (MANUAL DIFF); Mean Corpuscular HGB Conc 33.3 g/dL (31.8-35.4); Mean Corpuscular Hemoglobin 36.4 pg (27.0-31.2); Mean Corpuscular Volume 109.3 fl (80-94); Mean Platelet Volume 10.8 fl (7.4-10.4); Monocytes # 1.8 K/mm3 (0.1-1.0); Monocytes % 10.4 % (1.7-9.3); Neutrophils # 13.8 K/mm3 (1.8-7.8); Neutrophils % 78.5 % (37.0-80.0); Platelet Count 285 K/mm3 (142-424); Red Blood Count 3.24 M/mm3 (4.60-6.20); Red Cell Distribution Width 15.8 % (11.5-17.5); White Blood Count 17.6 K/mm3 (4.8-10.8)
[2024-09-19] MEDS: OXYCODONE 5MG IMMEDIATE RELEASE TABLET 5 MG PO (05:57)
[2024-09-19 06:02] LABS: Albumin Level 3.1 g/dl (3.5-5.0); Chloride 105 mmol/L (98-107); Sodium 136 mmol/L (136-145)
[2024-09-19 06:03] LABS: Potassium 3.6 mmoL/L (3.5-5.1)
[2024-09-19 06:05] LABS: Alanine Aminotransferase 201 U/L (12-78); Albumin/Globulin Ratio 0.9 (1.1-1.8); Alkaline Phosphatase 174 U/L (38-126); Anion Gap 10.6 mEq/L (5-15); Aspartate Amino Transferase 435 U/L (17-59); Bilirubin,Total 24.3 mg/dl (0.2-1.3); Blood Urea Nitrogen 18 mg/dl (9-20); Carbon Dioxide 24 mmol/L (22.0-30.0); Creatinine Clearance Estimated 113 mL/min (50-200); Estimated Glomerular Filt Rate 86 ml/min (>60); GFR (African American) 105 ML/MIN (>60); Globulin 3.3 g/dL (1.3-3.2); Total Protein,Serum 6.4 g/dl (6.3-8.2)
[2024-09-19 06:06] LABS: Calcium 7.2 mg/dl (8.4-10.2); Glucose 81 mg/dl (74-100)
[2024-09-19 07:14] LABS: Lymphocytes % 16 % (10-50); Macrocytosis 2+; Monocytes % 4 % (2-9); Neutrophils % 80 % (42-76); Platelet Estimate Normal; Total Cells Counted 100
[2024-09-19 07:16] LABS: Stomatocytes 1+
[2024-09-19] MEDS: dilTIAZem HCL 180MG CAP.ER.24H 180 MG PO ×2 (08:05→20:21)
[2024-09-19] MEDS: guaiFENesin 600 MG TAB.ER.12H PO ×2 (08:06→20:21)
[2024-09-19] MEDS: GABAPENTIN 300MG CAPSULE 300 MG PO ×2 (08:06→20:21)
[2024-09-19] MEDS: FOLIC ACID 1MG TABLET 1 MG PO (08:06)
[2024-09-19] MEDS: PANTOPRAZOLE 40MG VIAL 40 MG IV ×2 (08:07→20:21)
[2024-09-19] MEDS: RIFAXIMIN 550MG TABLET 550 MG PO ×3 (08:07→20:22)
[2024-09-19] MEDS: LORazepam 1MG TABLET 1 MG PO (08:07)
[2024-09-19] MEDS: SODIUM CHLORIDE 0.9% 10ML VIAL 10 ML IV (08:07)
--- NOTE | 2024-09-19 08:38 | CT_ITS ---
PROCEDURE INFORMATION: Exam: CT Abdomen And Pelvis With Contrast Exam date and time: 09/19/2024 9:52 AM Age: 59 years old Clinical indication: Other: Persistent alcoholic hepatitic; Additional info: F/u persistent alcoholic hepatitic, leukosytosis TECHNIQUE: Imaging protocol: Computed tomography of the abdomen and pelvis with contrast. Radiation optimization: All CT scans at this facility use at least one of these dose optimization techniques: automated exposure control; mA and/or kV adjustment per patient size (includes targeted exams where dose is matched to clinical indication); or iterative reconstruction. Contrast material: ISOVUE; Contrast volume: 75 ml; Contrast route: IV; COMPARISON: CT ABDOMEN PELVIS W CON 09/13/2024 2:34 PM FINDINGS: Lungs: Lung bases are unremarkable. Liver: Severe hepatic steatosis and hepatomegaly. Gallbladder and biliary ducts: Cholelithiasis noted without pericholecystic fluid/stranding. Pancreas: No peripancreatic fluid stranding. No main pancreatic ductal dilation. Subcentimeter hypodensity in the uncinate process is unchanged. Spleen: No splenomegaly. Adrenal glands: The adrenal glands are normal. Kidneys and ureters: Nephrograms are symmetric. No nephrolithiasis or hydroureteronephrosis on either side. No solid lesions Stomach and bowel: No bowel wall thickening or distention. Appendix: No evidence of appendicitis. Intraperitoneal space: Unremarkable. No free air. No significant fluid collection. Vasculature: The aorta demonstrates mild atherosclerotic calcification. Aorta is nonaneurysmal. Lymph nodes: No evidence of retroperitoneal or mesenteric lymphadenopathy. Urinary bladder: Urinary bladder is unremarkable. Reproductive: Unremarkable as visualized. Bones/joints: Avascular necrosis of the right femoral head without intra-articular collapse.. No acute fracture. Soft tissues: Unremarkable. IMPRESSION: Severe hepatic steatosis and hepatomegaly.
[2024-09-19] MEDS: MVI, ADULT NO.1 WITH VIT K 10 ML, THIAMINE HCL 100 MG, MAGNESIUM SULFATE 2 GM in LACTAT... 125 ML IV (09:24)
[2024-09-19] MEDS: SODIUM CHLORIDE 0.9% 10ML SYR (RAD ONLY) 10 ML IV (10:04)
[2024-09-19] MEDS: IOPAMIDOL-370 (76%);100ML BOTTLE 75 ML IV (10:04)
[2024-09-19] MEDS: ACETYLCYSTEINE 20% 30ML BOTTLE 6000 MG PO (10:10)
[2024-09-19] MEDS: MULTIVITAMIN TABLET 1 EACH PO (16:26)
--- NOTE | 2024-09-19 19:45 | EXP.PN ---
Subjective *Date: 09/19/24 *Time: 19:45 Interval history: Patient's alcohol withdrawal has significantly improved, anticipate discharge in 1 to 2 days pending discussion with GI. LFTs have bumped/plateaued, however overall clinical presentation has improved. Will discuss with GI whether hepatitis can be transition to outpatient treatment with steroids and close follow-up tomorrow. Exam Data for Last 24 hours Vital signs and Labs for Last 24 Hours: Temp Pulse Resp BP Pulse Ox O2 Del Method O2 Flow Rate 98.5 F 96 H 18 142/76 H 93 L Room Air 2 09/19/24 16:00 09/19/24 16:00 09/19/24 16:00 09/19/24 16:00 09/19/24 16:00 09/19/24 17:00 09/16/24 17:15 Laboratory Results - last 24 hr 09/19/24 05:25: WBC 17.6 H, RBC 3.24 L, Hgb 11.8 L, Hct 35.4 L, MCV 109.3 H, MCH 36.4 H, MCHC 33.3, RDW 15.8, Plt Count 285, MPV 10.8 H, Neut % (Auto) 78.5, Lymph % (Auto) 6.0 L, [place] % (Auto) 10.4 H, Eos % (Auto) 0.1, Baso % (Auto) 0.5, Neut # (Auto) 13.8 H, Lymph # (Auto) 1.1, [place] # (Auto) 1.8 H, Eos # (Auto) 0.0, Baso # (Auto) 0.1, Total Counted 100, Neutrophils % (Manual) 80 H, Lymphocytes % (Manual) 16, Monocytes % (Manual) 4, Platelet Estimate Normal, Macrocytosis 2+, Stomatocytes 1+, Sodium 136, Potassium 3.6, Chloride 105, Carbon Dioxide 24, Anion Gap 10.6, BUN 18, Creatinine 0.90, Estimated Creat Clear 113, Estimated GFR 86, Est GFR ( Amer) 105, Glucose 81 D, Calcium 7.2 L, Magnesium 2.0, Total Bilirubin 24.3 H*, AST 435 H*, ALT 201 H, Alkaline Phosphatase 174 H, Total Protein 6.4, Albumin 3.1 L D, Globulin 3.3 H, Albumin/Globulin Ratio 0.9 L I & O for Last 24 hours: Intake & Output 09/16/24 09/17/24 09/18/24 09/19/24 23:59 23:59 23:59 23:59 Intake Total 2083 / 2183 1180 / 1230 1355 / 1355 1500 / 1500 Output Total 2475 / 2475 2450 / 2750 1550 / 1550 0 / 0 Balance -392 / -292 -1270 / -1520 -195 / -195 1500 / 1500 Weight 95.663 kg 96.388 kg 93.939 kg 90.038 kg Microbiology Reports for the Last 24 Hours: Microbiology 09/15/24 08:20 Blood Blood Culture - Preliminary NO GROWTH AFTER 4 DAYS 09/15/24 08:20 Blood Blood Culture - Preliminary NO GROWTH AFTER 4 DAYS Constitutional Constitutional: no acute distress Comments: Jaundiced. *Routine HEENT Exam Head: Present normocephalic Eye: Present EOMI and PERRL ENT: Present mucous membranes moist *Routine Neck Exam Neck: Present supple; Absent lymphadenopathy *Routine Respiratory Exam Respiratory: Present CTA bilaterally *Routine Cardiovascular Exam Cardiovascular: Present RRR *Routine Abdominal Exam Abdominal: Present normoactive bowel sounds, firm and organomegaly Comments: Marked hepatomegaly *Routine Extremities Exam Extremities: Absent cyanosis, clubbing or edema *Routine Skin Exam Skin: Present warm; Absent rash *Routine Neurological Exam Neurological: Present alert Assessment and Plan *Assessment and plan (1) Acute alcoholic hepatitis: Status: Acute Category: Medical Code(s): K70.10 - Alcoholic hepatitis without ascites (2) Liver failure: Status: Acute Qualifiers: Liver failure chronicity: acute Hepatic coma status: without hepatic coma Qualified Code(s): K72.00 - Acute and subacute hepatic failure without coma Category: Medical Code(s): K72.90 - Hepatic failure, unspecified without coma (3) Jaundice: Status: Acute Category: Medical Code(s): R17 - Unspecified jaundice (4) Asterixis: Status: Acute Category: Medical Code(s): R27.8 - Other lack of coordination (5) Alcohol intoxication: Status: Acute Qualifiers: Complication of substance-induced condition: uncomplicated Qualified Code(s): F10.920 - Alcohol use, unspecified with intoxication, uncomplicated Category: Medical Code(s): F10.929 - Alcohol use, unspecified with intoxication, unspecified (6) Transaminitis: Status: Acute Category: Medical Code(s): R74.01 - Elevation of levels of liver transaminase levels (7) Primary hypertension: Status: Chronic Category: Medical Code(s): I10 - Essential (primary) hypertension (8) COPD (chronic obstructive pulmonary disease): Status: Chronic Qualifiers: COPD type: unspecified COPD Qualified Code(s): J44.9 - Chronic obstructive pulmonary disease, unspecified Category: Medical Code(s): J44.9 - Chronic obstructive pulmonary disease, unspecified (9) GERD (gastroesophageal reflux disease): Status: Chronic Qualifiers: Esophagitis presence: esophagitis presence not specified Qualified Code(s): K21.9 - Gastro-esophageal reflux disease without esophagitis Category: Medical Code(s): K21.9 - Gastro-esophageal reflux disease without esophagitis (10) HLD (hyperlipidemia): Status: Chronic Qualifiers: Hyperlipidemia type: mixed hyperlipidemia Qualified Code(s): E78.2 - Mixed hyperlipidemia Category: Medical Code(s): E78.5 - Hyperlipidemia, unspecified (11) Coronary artery disease: Status: Chronic Qualifiers: Coronary Disease-Associated Artery/Lesion type: [place] artery [place] vs. transplanted heart: [place] heart Associated angina: without angina Qualified Code(s): I25.10 - Atherosclerotic heart disease of [place] coronary artery without angina pectoris Category: Medical Code(s): I25.10 - Atherosclerotic heart disease of [place] coronary artery without angina pectoris (12) Coagulopathy: Status: Acute Category: Medical Code(s): D68.9 - Coagulation defect, unspecified Plan Pritesh Burns is a 59-year-old male who presented acutely intoxicated with acute liver failure and alcohol withdrawal. Discussed case with ER physician and GI prior to admission. Patient is critically ill. High risk for decompensation. #Acute alcoholic hepatitis (severe) #Acute liver failure #Alcohol intoxication #High anion gap metabolic acidosis #Hepatic metabolic encephalopathy #Severe protein calorie malnutrition - Maddrey's discriminant function of 62.4, MELD score 27. Confer poor prognosis and 20% 3-month mortality. Per my review of CT of abdomen, patient has severely enlarged liver, no appreciable varices however. No ascites. - Initial alcohol level elevated 272. ? Presented with transaminitis, AST/ALT/ALP/bili 743/177/306/23. Hepatitis panel normal. ? AST/ALT/ALP improving since admission, bumped slightly again today. However, overall improving. ? RUQ ultrasound 09/15/2024 revealed hepatomegaly, cholelithiasis with no CBD dilation. ? Continue Solu-Medrol 40 mg daily, orally for first-pass metabolism through the liver. Can consider IV if not tolerating oral due to nausea/vomiting. ? Continue Compazine as needed for nausea/vomiting. - Continue rifaximin 550 mg 3 times daily for hepatic encephalopathy, asterixis, hyperammonia. ? Restarted acetylcysteine 6000 mg, patient tolerating. ? Discussed case with GI who is following, assisting with care as above. - Follow-up morning CBC, CMP, magnesium, INR/PT, phosphorus ordered daily - Nutrition consulted to assist with dietary recommendations and risk for malnutrition. Patient at risk for refeeding syndrome. Recommend boost/protein supplement with trays - acute specialist consulted. ? Follow-up hemochromatosis PCR. Iron studies do show some iron overload, iron saturation close to 90%. ? Leukocytosis likely secondary to steroids. No signs of infection. #Alcohol withdrawal #Wernicke's encephalopathy #Fall - Acutely intoxicated with initial alcohol level of 272. Initiated on CIWA protocol with lorazepam due to acute liver injury. Will hold on phenobarbital due to contraindication in acute liver failure. - Multivitamin with supplementation including folate and thiamine daily. Rally pack daily. ? Patient did have a fall overnight, hit his forehead slightly on the toilet. Small bruise. CT head with no acute findings. Patient has no focal neurological deficits, alert and oriented. ? CIWA scores improving less than 10 today. ? Continue gabapentin 300 mg twice daily. Uptitrate based on response. ? Continue IV thiamine 300 mg every 8 hours. - Seizure precautions ? PT/OT following, recommending SNF at this time. Case management assisting with placement. #Acute urinary retention ? Continues to have urinary retention initially requiring straight caths. ? Continue tamsulosin 0.8 mg daily. Having good urine output since then. #Peripheral neuropathy #Suspected restless leg syndrome ? Continue Requip 2 mg, cautious with liver dysfunction. ? Nighttime restless legs, numbness/tingling improved. #Hypokalemia #Hypomagnesemia #Hypophosphatemia ? Initial potassium 2.9, magnesium 1.2, phosphorus 1.5. Repleted with IV and oral. Follow-up repeat potassium, magnesium, phosphorus levels. #Low folic acid ? Folic acid 2.41. Continue daily folic acid 1 mg. ? B12 normal 747 Hypertension: Diltiazem 180 mg extended release twice daily COPD: On room air. Continue DuoNebs every 6 hours prn. Goal sats greater 90%. In no acute exacerbation at this time GERD: Continue pantoprazole as formulary conversion 40 mg twice daily Full code Anticoagulation contraindicated given coagulopathy and INR of 1.13 Regular diet with protein supplementation
[2024-09-19] MEDS: TAMSULOSIN 0.4MG CAPSULE 0.8 MG PO (20:22)
[2024-09-19] MEDS: ROPINIROLE 1MG TABLET 2 MG PO (20:22)
[2024-09-20] MEDS: THIAMINE HCL 300 MG in 0.9 % SODIUM CHLORIDE 50 ML 212 MG IV ×3 (01:55→18:10)
[2024-09-20] MEDS: OXYCODONE 5MG IMMEDIATE RELEASE TABLET 5 MG PO ×2 (01:58→20:24)
[2024-09-20 04:00] VITALS: BP 134/71; PULSE 77; RESP 16; TEMP 36.5; O2SAT 95; BMI 26.9
--- NOTE | 2024-09-20 04:20 | PC.NURSE ---
Pt has been A/O X 4 this shift. CIWA score has been 0 throughout the night. He has been up to BR with walker and assist of 1 several times. Pt was medicated at his request with oxycodone due to report of pain to his feet which was effective for comfort. One on one observation continues to be provided to pt for safety. VS have been WNL for pt. He is tolerating diet
[2024-09-20 07:06] LABS: Basophils # 0.1 K/mm3 (0-0.2); Basophils % 0.4 % (0.1-2.0); Eosinophils % 0.1 % (0.1-12.0); Lymphocytes # 0.9 K/mm3 (0.7-4.5); Lymphocytes % 4.4 % (10-50); Mean Corpuscular HGB Conc 34.2 g/dL (31.8-35.4); Mean Corpuscular Hemoglobin 36.9 pg (27.0-31.2); Mean Platelet Volume 10.8 fl (7.4-10.4); Monocytes # 2.1 K/mm3 (0.1-1.0); Monocytes % 10.3 % (1.7-9.3); Platelet Count 328 K/mm3 (142-424); Red Blood Count 3.52 M/mm3 (4.60-6.20); Red Cell Distribution Width 15.5 % (11.5-17.5); White Blood Count 20.3 K/mm3 (4.8-10.8)
[2024-09-20 07:09] LABS: Albumin Level 3.5 g/dl (3.5-5.0); Chloride 102 mmol/L (98-107); Potassium 3.8 mmoL/L (3.5-5.1); Sodium 133 mmol/L (136-145)
[2024-09-20 07:11] LABS: MANUAL DIFFERENTIAL MANUAL DIFFERENTIAL (MANUAL DIFF)
[2024-09-20 07:12] LABS: Alanine Aminotransferase 275 U/L (12-78); Alkaline Phosphatase 195 U/L (38-126); Anion Gap 11.8 mEq/L (5-15); Aspartate Amino Transferase 536 U/L (17-59); Bilirubin,Total 26.5 mg/dl (0.2-1.3); Blood Urea Nitrogen 15 mg/dl (9-20); Calcium 7.6 mg/dl (8.4-10.2); Carbon Dioxide 23 mmol/L (22.0-30.0); Creatinine Clearance Estimated 113 mL/min (50-200); Estimated Glomerular Filt Rate 86 ml/min (>60); GFR (African American) 105 ML/MIN (>60); Globulin 3.4 g/dL (1.3-3.2); Glucose 97 mg/dl (74-100); Total Protein,Serum 6.9 g/dl (6.3-8.2)
[2024-09-20 07:13] LABS: Magnesium 1.9 mg/dl (1.6-2.3)
[2024-09-20 07:51] VITALS: BP 119/70; PULSE 87; RESP 17; TEMP 36.9; O2SAT 95
[2024-09-20 08:00] LABS: Lymphocytes % 4 % (10-50); Macrocytosis 2+; Monocytes % 16 % (2-9); Neutrophils % 77 % (42-76); Platelet Estimate Normal; Total Cells Counted 100
[2024-09-20] MEDS: MVI, ADULT NO.1 WITH VIT K 10 ML, THIAMINE HCL 100 MG, MAGNESIUM SULFATE 2 GM in LACTAT... 125 ML IV (09:10)
[2024-09-20] MEDS: FOLIC ACID 1MG TABLET 1 MG PO (09:11)
[2024-09-20] MEDS: guaiFENesin 600 MG TAB.ER.12H PO ×2 (09:11→20:24)
[2024-09-20] MEDS: RIFAXIMIN 550MG TABLET 550 MG PO ×3 (09:11→20:24)
[2024-09-20] MEDS: GABAPENTIN 300MG CAPSULE 300 MG PO ×2 (09:11→20:24)
[2024-09-20] MEDS: PANTOPRAZOLE 40MG TABLET 40 MG PO ×2 (09:11→20:24)
[2024-09-20] MEDS: dilTIAZem HCL 180MG CAP.ER.24H 180 MG PO ×2 (09:11→20:24)
[2024-09-20] MEDS: ACETYLCYSTEINE 20% 30ML BOTTLE 6000 MG PO (09:12)
--- NOTE | 2024-09-20 09:47 | EXP.PULM.PN ---
Subjective *Date: 09/20/24 *Time: 11:22 Interval history: No acute respiratory vents overnight. Patient denies any new respiratory complaints. Pulmonology Exam Inpatient Vital signs and Labs for Last 24 Hours: Temp Pulse Resp BP Pulse Ox O2 Del Method O2 Flow Rate 98.5 F 87 17 119/70 95 Room Air 2 09/20/24 07:51 09/20/24 07:51 09/20/24 07:51 09/20/24 07:51 09/20/24 07:51 09/20/24 07:51 09/16/24 17:15 Laboratory Results - last 24 hr 09/20/24 06:43: WBC 20.3 H*, RBC 3.52 L, Hgb 13.0 L, Hct 38.0 L, MCV 108.0 H, MCH 36.9 H, MCHC 34.2, RDW 15.5, Plt Count 328, MPV 10.8 H, Neut % (Auto) 79.0, Lymph % (Auto) 4.4 L, [place] % (Auto) 10.3 H, Eos % (Auto) 0.1, Baso % (Auto) 0.4, Neut # (Auto) 16.0 H, Lymph # (Auto) 0.9, [place] # (Auto) 2.1 H, Eos # (Auto) 0.0, Baso # (Auto) 0.1, Total Counted 100, Neutrophils % (Manual) 77 H, Band Neutrophils % 2.0, Lymphocytes % (Manual) 4 L, Monocytes % (Manual) 16 H, Blast Cells % 1.0, Platelet Estimate Normal, Macrocytosis 2+, Sodium 133 L, Potassium 3.8, Chloride 102, Carbon Dioxide 23, Anion Gap 11.8, BUN 15, Creatinine 0.90, Estimated Creat Clear 113, Estimated GFR 86, Est GFR ( Amer) 105, Glucose 97, Calcium 7.6 L, Magnesium 1.9, Total Bilirubin 26.5 H*, AST 536 H*, ALT 275 H D, Alkaline Phosphatase 195 H, Total Protein 6.9, Albumin 3.5 D, Globulin 3.4 H, Albumin/Globulin Ratio 1.0 L Temp Pulse Resp BP Pulse Ox O2 Del Method O2 Flow Rate 97.7 F 103 H 17 137/80 96 Room Air 2 09/17/24 07:45 09/17/24 07:45 09/17/24 07:45 09/17/24 07:45 09/17/24 07:45 09/17/24 09:00 09/16/24 17:15 Laboratory Results - last 24 hr 09/17/24 06:38: WBC 16.0 H, RBC 3.41 L, Hgb 12.7 L, Hct 37.2 L, MCV 109.1 H, MCH 37.2 H, MCHC 34.1, RDW 15.9, Plt Count 290, MPV 10.9 H, Neut % (Auto) 81.4 H, Lymph % (Auto) 3.5 L, [place] % (Auto) 9.7 H, Eos % (Auto) 0.0 L, Baso % (Auto) 0.4, Neut # (Auto) 13.0 H, Lymph # (Auto) 0.6 L, [place] # (Auto) 1.5 H, Eos # (Auto) 0.0, Baso # (Auto) 0.1, Total Counted 100, Neutrophils % (Manual) 82 H, Band Neutrophils % 1.0, Lymphocytes % (Manual) 10, Monocytes % (Manual) 7, Platelet Estimate Normal, Macrocytosis 2+, Spherocytes 1+, Target Cells 1+, PT 12.3 H, INR 1.13 H, Sodium 135 L, Potassium 3.7, Chloride 104, Carbon Dioxide 22, Anion Gap 12.7, BUN 16, Creatinine 0.90, Estimated Creat Clear 120, Estimated GFR 86, Est GFR ( Amer) 105, Glucose 98, Calcium 7.7 L, Phosphorus 1.7 L, Magnesium 2.1, Total Bilirubin 25.5 H*, AST 302 H*, ALT 144 H, Alkaline Phosphatase 200 H, Total Protein 7.2, Albumin 3.6, Globulin 3.6 H, Albumin/Globulin Ratio 1.0 L I & O for Labs for Last 24 Hours: Intake & Output 09/17/24 09/18/24 09/19/24 09/20/24 23:59 23:59 23:59 23:59 Intake Total 1180 / 1230 1355 / 1355 1500 / 2000 920 / 920 Output Total 2450 / 2750 1550 / 1550 250 / 250 0 / 0 Balance -1270 / -1520 -195 / -195 1250 / 1750 920 / 920 Weight 212 lb 8 oz 207 lb 1.6 oz 198 lb 7.997 oz 199 lb Intake & Output 09/14/24 09/15/24 09/16/24 09/17/24 23:59 23:59 23:59 23:59 Intake Total 855 / 855 1720 / 1720 2083 / 2183 100 / 100 Output Total 1650 / 1650 1100 / 1100 2475 / 2475 0 / 0 Balance -795 / -795 620 / 620 -392 / -292 100 / 100 Weight 205 lb 4.817 oz 209 lb 1.6 oz 210 lb 14.4 oz 212 lb 8 oz Microbiology Reports for the Last 24 Hours: Microbiology 09/15/24 08:20 Blood Blood Culture - Final NO GROWTH AFTER 5 DAYS 09/15/24 08:20 Blood Blood Culture - Final NO GROWTH AFTER 5 DAYS Microbiology 09/15/24 14:07 Urine,Clean Catch Urine Culture - Final No growth. 09/15/24 08:20 Blood Blood Culture - Preliminary NO GROWTH AFTER 48 HOURS 09/15/24 08:20 Blood Blood Culture - Preliminary NO GROWTH AFTER 48 HOURS 09/14/24 15:45 Rectum CRE Surveillance Culture - Final Negative Constitutional: Present moderate distress Head: Present normocephalic and atraumatic ENT: Present normal exam, normal oropharynx and mucous membranes moist Neck: Present normal inspection and full ROM Respiratory: Present normal respiratory effort and able to speak in complete sentences; Absent prolonged expiratory phase, respiratory distress, rhonchi, stridor, wheezes, crackles or diminished air movement Cardiac: Present S1/S2, Tachycardia and radial pulses present GI: Present soft and distention; Absent tenderness or guarding Skin: Present intact; Absent cyanosis or jaundice Neuro: Present alert, awake and oriented x 3 Extremities: Present normal inspection; Absent clubbing or cyanosis Psychiatric: Present normal affect and cooperative Assessment and Plan *Assessment and plan (1) Dyspnea on exertion: Status: Acute Category: Medical Code(s): R06.09 - Other forms of dyspnea Plan Mr. Aguilar is a 59-year-old male admitted to the hospital on 09/13/2024 with elevated AST and ALT being managed in the hospital for acute alcoholic hepatitis, liver failure, metabolic encephalopathy, alcohol withdrawal pulmonary was called to manage his baseline COPD. Patient said he is a never smoker. 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 At baseline using albuterol inhaler 3-4 times per day with improving symptoms. Chest x-ray from 09/16/24 morning low-volume lung brandt. No dense consolidative airspace changes noted. Concerning for volume overlaod/ vascular congestion. No effusions noted. CT abdomen from admission lower lung brandt clear with no consolidative/airspace changes. No effusions. Leukocytosis relatively stable from yesterday. Platelet count within normal limits. CT abdomen from admission cholelithiasis without any evidence of acute cholecystitis. Abdominal ultrasound normal gallbladder wall thickening and no ductal dilatation. Patient currently being managed for acute alcoholic hepatitis. GI following. Lipase within normal limits from 09/13/2024 On initial examination bilateral rhonchorous breath sounds. No significant wheezing noted. On room air saturating 95%. Interval update: No acute respiratory events over the weekend. Continue to remain on room air. Plan: -Incentive spirometry and flutter valve -Albuterol to DuoNebs 4 times daily as needed -Oxygen supplementation as needed to maintain O2 saturation goal of 90% and above -Follow as an outpatient basis with a full PFT and a 6-minute walk testing # Pulmonary will sign off at this point of time. Will follow as an outpatient basis with a PFT walk testing. Please call with any further questions or concerns.
[2024-09-20 11:11] LABS: HBsAg Screen Negative (Negative); HCV Ab Non Reactive (Non Reactive); Hep A Ab, IGM Negative (Negative); Hep B Core Ab, IgM Negative (Negative)
[2024-09-20 11:53] VITALS: BP 125/64; PULSE 85; RESP 20; TEMP 36.8; O2SAT 94
[2024-09-20 12:24] LABS: INR 1.14 (0.9-1.1); Prothrombin Time 12.6 seconds (10.1-12.5)
[2024-09-20 16:00] VITALS: BP 124/77; PULSE 88; RESP 18; TEMP 36.7; O2SAT 94
--- NOTE | 2024-09-20 16:57 | EXP.PN ---
Subjective *Date: 09/20/24 *Time: 16:57 Interval history: Awake and alert but still with deep jaundice and icterus. Very oriented with no signs of cognitive impairment. No melena or hematochezia Exam Data for Last 24 hours Vital signs and Labs for Last 24 Hours: Temp Pulse Resp BP Pulse Ox O2 Del Method O2 Flow Rate 98.2 F 85 20 125/64 94 L Room Air 2 09/20/24 11:53 09/20/24 11:53 09/20/24 11:53 09/20/24 11:53 09/20/24 11:53 09/20/24 15:00 09/16/24 17:15 Laboratory Results - last 24 hr 09/19/24 11:23: Hepatitis A IgM Ab Negative, Hep Bs Antigen Negative, Hep B Core IgM Ab Negative, Hepatitis C Antibody Non reactive, HCV RNA PCR Test Info Comment 09/20/24 06:43: WBC 20.3 H*, RBC 3.52 L, Hgb 13.0 L, Hct 38.0 L, MCV 108.0 H, MCH 36.9 H, MCHC 34.2, RDW 15.5, Plt Count 328, MPV 10.8 H, Neut % (Auto) 79.0, Lymph % (Auto) 4.4 L, [place] % (Auto) 10.3 H, Eos % (Auto) 0.1, Baso % (Auto) 0.4, Neut # (Auto) 16.0 H, Lymph # (Auto) 0.9, [place] # (Auto) 2.1 H, Eos # (Auto) 0.0, Baso # (Auto) 0.1, Total Counted 100, Neutrophils % (Manual) 77 H, Band Neutrophils % 2.0, Lymphocytes % (Manual) 4 L, Monocytes % (Manual) 16 H, Blast Cells % 1.0, Platelet Estimate Normal, Macrocytosis 2+, Sodium 133 L, Potassium 3.8, Chloride 102, Carbon Dioxide 23, Anion Gap 11.8, BUN 15, Creatinine 0.90, Estimated Creat Clear 113, Estimated GFR 86, Est GFR ( Amer) 105, Glucose 97, Calcium 7.6 L, Magnesium 1.9, Total Bilirubin 26.5 H*, AST 536 H*, ALT 275 H D, Alkaline Phosphatase 195 H, Total Protein 6.9, Albumin 3.5 D, Globulin 3.4 H, Albumin/Globulin Ratio 1.0 L 09/20/24 09:00: PT 12.6 H, INR 1.14 H I & O for Last 24 hours: Intake & Output 09/17/24 09/18/24 09/19/24 09/20/24 23:59 23:59 23:59 23:59 Intake Total 1180 / 1230 1355 / 1355 1500 / 2000 1280 / 1280 Output Total 2450 / 2750 1550 / 1550 250 / 250 0 / 0 Balance -1270 / -1520 -195 / -195 1250 / 1750 1280 / 1280 Weight 212 lb 8 oz 207 lb 1.6 oz 198 lb 7.997 oz 199 lb Microbiology Reports for the Last 24 Hours: Microbiology 09/15/24 08:20 Blood Blood Culture - Final NO GROWTH AFTER 5 DAYS 09/15/24 08:20 Blood Blood Culture - Final NO GROWTH AFTER 5 DAYS Assessment and Plan *Assessment and plan (1) Jaundice: Status: Acute Category: Medical Code(s): R17 - Unspecified jaundice (2) Acute alcoholic hepatitis: Status: Acute Category: Medical Code(s): K70.10 - Alcoholic hepatitis without ascites (3) Liver failure: Status: Acute Qualifiers: Liver failure chronicity: acute Hepatic coma status: without hepatic coma Qualified Code(s): K72.00 - Acute and subacute hepatic failure without coma Category: Medical Code(s): K72.90 - Hepatic failure, unspecified without coma Plan 1. Severe acute alcoholic hepatitis with profound jaundice. Presently, I would continue corticosteroids/methylprednisolone. He is beyond time typically where acetylcysteine use can have further improvement. I would recommend that he maintain hospitalization until total bilirubin begins to show to clear decline. His coags have stabilized. Total bilirubin today was 26.5 and fairly unchanged with liver chemistries, AST and ALT if anything slightly worse. Hemochromatosis genetic assay pending. Will still like to do EGD when patient clinically improving to rule out varices/portal hypertension.
[2024-09-20] MEDS: MULTIVITAMIN TABLET 1 EACH PO (18:10)
--- NOTE | 2024-09-20 18:16 | PEERSUPPORT ---
Peer Support Note Patient Information Patient Information: DOS: 09/20/2024 Reason: ETOH/AUD Ps follow up ? Pt showering, ps to return. ? Ps follow up: ? Pt open to share of his day; ? -Walked up and down the zepeda of 2nd floor twice, still feels weak but happy he was able. ? -Not much of an appetite, eating because the doctor says he needs too. Ps encouraged him to eat until he was full but not to force himself to overeat or think he has to clean his plate to prevent uncomfortableness. -Pt tearfully shared he was depressed feeling, with being in the hospital and knows he is sick. He admitted he does have a problem with his drinking and wants to get better so he is able to enjoy his life. 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 Pt is tearful when saying he has a great support system and people that care about him making it easier for him to focus on his health. ? -Pt ask himself of classes and program of ps.? Ps in detail explains [facility] outpatient MAT program. Medication option, therapy services, support groups, and weekly attendance with accountability through UDS. -Pt does agree to [facility]. ? -Pt has attended [facility], but did not feel they met any needs for him at that time, other than tell him he was not crazy. ? Ps shared personal stories and experience relevant to encourage hope and strength to keep an open mind and acceptance to the need of sobriety and wellness to his overall health for himself and his family who he misses and loves. Plan of action: -Outpatient Appointment to [facility] for AUD treatment and therapy for underlying issues. -Ps to schedule [facility]2024[facility]. -Ps will follow up with pt on 09/21/2024 -Ps provided calendar to [facility] appointments, as well as pt to see how far he has come in seven days of being hospitalized to keep hope.
--- NOTE | 2024-09-20 18:26 | PC.NURSE ---
Pt has done well today. remains alert and oriented. vss. lung sounds diminished. sitter at bedside.
[2024-09-20 19:46] VITALS: BP 133/80; PULSE 77; RESP 16; TEMP 36.7; O2SAT 95
--- NOTE | 2024-09-20 20:20 | EXP.PN ---
Subjective *Date: 09/20/24 *Time: 20:20 Interval history: Nystagmus, ambulation, confabulation improving. Alcohol withdrawals partially resolved. Continues to have slightly increased LFTs. Discussed with GI, advised waxing and waning of LFTs can be common with severe alcoholic hepatitis. Advised continued inpatient management with steroids until clear decline in bilirubin. Did not recommend MRCP. Would like to do EGD to evaluate for varices once more stable. Exam Data for Last 24 hours Vital signs and Labs for Last 24 Hours: Temp Pulse Resp BP Pulse Ox O2 Del Method O2 Flow Rate 98.1 F 77 16 133/80 95 Room Air 2 09/20/24 19:46 09/20/24 19:46 09/20/24 19:46 09/20/24 19:46 09/20/24 19:46 09/20/24 19:46 09/16/24 17:15 Laboratory Results - last 24 hr 09/19/24 11:23: Hepatitis A IgM Ab Negative, Hep Bs Antigen Negative, Hep B Core IgM Ab Negative, Hepatitis C Antibody Non reactive, HCV RNA PCR Test Info Comment 09/20/24 06:43: WBC 20.3 H*, RBC 3.52 L, Hgb 13.0 L, Hct 38.0 L, MCV 108.0 H, MCH 36.9 H, MCHC 34.2, RDW 15.5, Plt Count 328, MPV 10.8 H, Neut % (Auto) 79.0, Lymph % (Auto) 4.4 L, [place] % (Auto) 10.3 H, Eos % (Auto) 0.1, Baso % (Auto) 0.4, Neut # (Auto) 16.0 H, Lymph # (Auto) 0.9, [place] # (Auto) 2.1 H, Eos # (Auto) 0.0, Baso # (Auto) 0.1, Total Counted 100, Neutrophils % (Manual) 77 H, Band Neutrophils % 2.0, Lymphocytes % (Manual) 4 L, Monocytes % (Manual) 16 H, Blast Cells % 1.0, Platelet Estimate Normal, Macrocytosis 2+, Sodium 133 L, Potassium 3.8, Chloride 102, Carbon Dioxide 23, Anion Gap 11.8, BUN 15, Creatinine 0.90, Estimated Creat Clear 113, Estimated GFR 86, Est GFR ( Amer) 105, Glucose 97, Calcium 7.6 L, Magnesium 1.9, Total Bilirubin 26.5 H*, AST 536 H*, ALT 275 H D, Alkaline Phosphatase 195 H, Total Protein 6.9, Albumin 3.5 D, Globulin 3.4 H, Albumin/Globulin Ratio 1.0 L 09/20/24 09:00: PT 12.6 H, INR 1.14 H I & O for Last 24 hours: Intake & Output 09/17/24 09/18/24 09/19/24 09/20/24 23:59 23:59 23:59 23:59 Intake Total 1180 / 1230 1355 / 1355 1500 / 2000 1640 / 1640 Output Total 2450 / 2750 1550 / 1550 250 / 250 0 / 0 Balance -1270 / -1520 -195 / -195 1250 / 1750 1640 / 1640 Weight 96.388 kg 93.939 kg 90.038 kg 90.265 kg Microbiology Reports for the Last 24 Hours: Microbiology 09/15/24 08:20 Blood Blood Culture - Final NO GROWTH AFTER 5 DAYS 09/15/24 08:20 Blood Blood Culture - Final NO GROWTH AFTER 5 DAYS Constitutional Constitutional: no acute distress Comments: Jaundiced. *Routine HEENT Exam Head: Present normocephalic Eye: Present EOMI and PERRL ENT: Present mucous membranes moist *Routine Neck Exam Neck: Present supple; Absent lymphadenopathy *Routine Respiratory Exam Respiratory: Present CTA bilaterally *Routine Cardiovascular Exam Cardiovascular: Present RRR *Routine Abdominal Exam Abdominal: Present normoactive bowel sounds, firm and organomegaly Comments: Marked hepatomegaly *Routine Extremities Exam Extremities: Absent cyanosis, clubbing or edema *Routine Skin Exam Skin: Present warm; Absent rash *Routine Neurological Exam Neurological: Present alert Assessment and Plan *Assessment and plan (1) Acute alcoholic hepatitis: Status: Acute Category: Medical Code(s): K70.10 - Alcoholic hepatitis without ascites (2) Liver failure: Status: Acute Qualifiers: Liver failure chronicity: acute Hepatic coma status: without hepatic coma Qualified Code(s): K72.00 - Acute and subacute hepatic failure without coma Category: Medical Code(s): K72.90 - Hepatic failure, unspecified without coma (3) Jaundice: Status: Acute Category: Medical Code(s): R17 - Unspecified jaundice (4) Asterixis: Status: Acute Category: Medical Code(s): R27.8 - Other lack of coordination (5) Alcohol intoxication: Status: Acute Qualifiers: Complication of substance-induced condition: uncomplicated Qualified Code(s): F10.920 - Alcohol use, unspecified with intoxication, uncomplicated Category: Medical Code(s): F10.929 - Alcohol use, unspecified with intoxication, unspecified (6) Transaminitis: Status: Acute Category: Medical Code(s): R74.01 - Elevation of levels of liver transaminase levels (7) Primary hypertension: Status: Chronic Category: Medical Code(s): I10 - Essential (primary) hypertension (8) COPD (chronic obstructive pulmonary disease): Status: Chronic Qualifiers: COPD type: unspecified COPD Qualified Code(s): J44.9 - Chronic obstructive pulmonary disease, unspecified Category: Medical Code(s): J44.9 - Chronic obstructive pulmonary disease, unspecified (9) GERD (gastroesophageal reflux disease): Status: Chronic Qualifiers: Esophagitis presence: esophagitis presence not specified Qualified Code(s): K21.9 - Gastro-esophageal reflux disease without esophagitis Category: Medical Code(s): K21.9 - Gastro-esophageal reflux disease without esophagitis (10) HLD (hyperlipidemia): Status: Chronic Qualifiers: Hyperlipidemia type: mixed hyperlipidemia Qualified Code(s): E78.2 - Mixed hyperlipidemia Category: Medical Code(s): E78.5 - Hyperlipidemia, unspecified (11) Coronary artery disease: Status: Chronic Qualifiers: Coronary Disease-Associated Artery/Lesion type: [place] artery [place] vs. transplanted heart: [place] heart Associated angina: without angina Qualified Code(s): I25.10 - Atherosclerotic heart disease of [place] coronary artery without angina pectoris Category: Medical Code(s): I25.10 - Atherosclerotic heart disease of [place] coronary artery without angina pectoris (12) Coagulopathy: Status: Acute Category: Medical Code(s): D68.9 - Coagulation defect, unspecified Plan Pritesh Burns is a 59-year-old male who presented acutely intoxicated with acute liver failure and alcohol withdrawal. Discussed case with ER physician and GI prior to admission. Patient is critically ill. High risk for decompensation. #Acute alcoholic hepatitis (severe) #Acute liver failure #Painless jaundice #Alcohol intoxication, resolved #High anion gap metabolic acidosis, resolved #Hepatic metabolic encephalopathy, resolved #Severe protein calorie malnutrition #Leukocytosis - Maddrey's discriminant function of 62.4, MELD score 27. Confer poor prognosis and 20% 3-month mortality. CT shows severely enlarged liver, no appreciable varices however. No ascites. - Initial alcohol level elevated 272. ? Presented with transaminitis, AST/ALT/ALP/bili 743/177/306/23. Hepatitis panel normal. ? AST/ALT/ALP improved since admission, but slowly rising over the past few days. Bilirubin today 26.5. Patient however overall clinically improving, continues to have painless jaundice. ? RUQ ultrasound 09/15/2024 revealed hepatomegaly, cholelithiasis with no CBD dilation. ? Discussed with GI, advised waxing and waning of LFTs can be common with severe alcoholic hepatitis. Advised continued inpatient management with steroids until clear decline in bilirubin. Did not recommend MRCP. Would like to do EGD to evaluate for varices once more stable. ? Continue Solu-Medrol 40 mg daily, orally for first-pass metabolism through the liver. Can consider IV if not tolerating oral due to nausea/vomiting. ? Continue Compazine as needed for nausea/vomiting. - Continue rifaximin 550 mg 3 times daily for hepatic encephalopathy, asterixis, hyperammonia. ? Continue acetylcysteine 6000 mg, patient now tolerating. - Follow-up morning CBC, CMP, magnesium, INR/PT, phosphorus ordered daily - Nutrition consulted to assist with dietary recommendations and risk for malnutrition. Patient at risk for refeeding syndrome. Recommend boost/protein supplement with trays - testing specialist consulted. ? Follow-up hemochromatosis PCR, pending. Iron studies do show some iron overload, iron saturation close to 90%. ? Leukocytosis likely secondary to steroids and inflammatory hepatitis. No signs of infection. #Alcohol withdrawal #Wernicke's encephalopathy #Fall - Acutely intoxicated with initial alcohol level of 272. Initiated on CIWA protocol with lorazepam due to acute liver injury. Will hold on phenobarbital due to contraindication in acute liver failure. - Multivitamin with supplementation including folate and thiamine daily. ? Patient did have a fall during hospitalization, hit his forehead slightly on the toilet. Small bruise. CT head with no acute findings. Patient has had no focal neurological deficits, alert and oriented. ? Highly suspect Warnicke's encephalopathy, had horizontal nystagmus, confabulation/memory loss, and ataxia. Significantly improved with IV thiamine. ? CIWA scores virtually normal today. ? Continue gabapentin 300 mg twice daily. Patient does not want higher doses as it makes him depressed ? Transition to oral thiamine 100 mg daily, can be stopped in 1 week. Discontinued IV thiamine today. - Seizure precautions ? PT/OT following, recommending SNF at this time. Case management assisting with placement. # Suspected BPH ? Urinary retention requiring straight caths improved with tamsulosin 0.8 mg daily. #Peripheral neuropathy #Suspected restless leg syndrome ? Nighttime restless legs, numbness/tingling significantly improved since starting Requip. However, continues to have daytime symptoms. ? Will hold tonight's Requip 2 mg in case this is contributing to worsening hepatitis. #Hypokalemia #Hypomagnesemia #Hypophosphatemia ? Initial potassium 2.9, magnesium 1.2, phosphorus 1.5. Repleted with IV and oral. Follow-up repeat potassium, magnesium, phosphorus levels. #Low folic acid ? Folic acid 2.41. Continue daily folic acid 1 mg. ? B12 normal 747 Hypertension: Diltiazem 180 mg extended release twice daily COPD: On room air. Continue DuoNebs every 6 hours prn. Goal sats greater 90%. In no acute exacerbation at this time GERD: Continue pantoprazole as formulary conversion 40 mg twice daily Full code Anticoagulation contraindicated given coagulopathy and INR of 1.13 Regular diet with protein supplementation
[2024-09-20] MEDS: TAMSULOSIN 0.4MG CAPSULE 0.8 MG PO (20:24)
[2024-09-21] VITALS: BP 108/54; PULSE 84; RESP 16; TEMP 36.7; O2SAT 94
[2024-09-21 04:00] VITALS: BP 124/69; PULSE 92; RESP 16; TEMP 36.9; O2SAT 97; BMI 26.9
--- NOTE | 2024-09-21 04:43 | PC.NURSE ---
Alert and oriented. Rested well throughout the night. Ambulates to restroom with walker, standby assist. Patient still 1:1. Complained of pain 1 time, treated per mar. No other complaints throughout shift. Room air. Call light in reach.
[2024-09-21 07:01] LABS: Albumin Level 3.8 g/dl (3.5-5.0); Chloride 102 mmol/L (98-107); Potassium 3.6 mmoL/L (3.5-5.1); Sodium 134 mmol/L (136-145)
[2024-09-21 07:03] LABS: Alanine Aminotransferase 369 U/L (12-78); Aspartate Amino Transferase 598 U/L (17-59); Blood Urea Nitrogen 17 mg/dl (9-20); Creatinine Clearance Estimated 102 mL/min (50-200); Estimated Glomerular Filt Rate 76 ml/min (>60); GFR (African American) 93 ML/MIN (>60)
[2024-09-21 07:04] LABS: Alkaline Phosphatase 182 U/L (38-126); Anion Gap 11.6 mEq/L (5-15); Calcium 7.9 mg/dl (8.4-10.2); Carbon Dioxide 24 mmol/L (22.0-30.0); Globulin 3.8 g/dL (1.3-3.2); Glucose 95 mg/dl (74-100); Magnesium 2.1 mg/dl (1.6-2.3); Total Protein,Serum 7.6 g/dl (6.3-8.2)
[2024-09-21 07:09] LABS: Basophils # 0.2 K/mm3 (0-0.2); Basophils % 0.8 % (0.1-2.0); Hematocrit 40.7 % (42.0-52.0); Hemoglobin 13.7 g/dL (14.1-18.0); Lymphocytes # 0.9 K/mm3 (0.7-4.5); Lymphocytes % 3.8 % (10-50); Mean Corpuscular HGB Conc 33.7 g/dL (31.8-35.4); Mean Corpuscular Hemoglobin 37.2 pg (27.0-31.2); Mean Corpuscular Volume 110.6 fl (80-94); Mean Platelet Volume 11.2 fl (7.4-10.4); Monocytes # 2.4 K/mm3 (0.1-1.0); Monocytes % 10.7 % (1.7-9.3); Neutrophils # 17.5 K/mm3 (1.8-7.8); Neutrophils % 78.3 % (37.0-80.0); Platelet Count 349 K/mm3 (142-424); Red Blood Count 3.68 M/mm3 (4.60-6.20); Red Cell Distribution Width 15.3 % (11.5-17.5); White Blood Count 22.3 K/mm3 (4.8-10.8)
[2024-09-21 07:15] LABS: MANUAL DIFFERENTIAL MANUAL DIFFERENTIAL (MANUAL DIFF)
[2024-09-21 07:23] LABS: Bilirubin,Total 28.6 mg/dl (0.2-1.3)
[2024-09-21 07:28] VITALS: BP 115/71; PULSE 94; RESP 18; TEMP 37.3; O2SAT 97
[2024-09-21 07:43] LABS: INR 1.18 (0.9-1.1); Prothrombin Time 12.8 seconds (9.2-12.1)
[2024-09-21 08:20] LABS: Eosinophils % 2 % (0-3); Lymphocytes % 6 % (10-50); Macrocytosis 2+; Monocytes % 21 % (2-9); Neutrophils % 68 % (42-76); Total Cells Counted 100
[2024-09-21 08:21] LABS: Platelet Estimate Normal
[2024-09-21] MEDS: ACETYLCYSTEINE 20% 30ML BOTTLE 6000 MG PO (08:22)
[2024-09-21] MEDS: GABAPENTIN 300MG CAPSULE 300 MG PO ×2 (08:23→20:21)
[2024-09-21] MEDS: dilTIAZem HCL 180MG CAP.ER.24H 180 MG PO ×2 (08:23→20:21)
[2024-09-21] MEDS: FOLIC ACID 1MG TABLET 1 MG PO (08:23)
[2024-09-21] MEDS: RIFAXIMIN 550MG TABLET 550 MG PO ×3 (08:23→20:21)
[2024-09-21] MEDS: PANTOPRAZOLE 40MG TABLET 40 MG PO ×2 (08:24→20:21)
[2024-09-21] MEDS: guaiFENesin 600 MG TAB.ER.12H PO ×2 (08:24→20:21)
[2024-09-21] MEDS: THIAMINE 100MG TABLET 100 MG PO (08:26)
[2024-09-21 12:00] VITALS: BP 116/76; PULSE 99; RESP 16; O2SAT 96
--- NOTE | 2024-09-21 15:57 | PC.NURSE ---
Aox 4, up with assistance times one, bed alarm active, 96% on RA, 20g R FA SL, consult to PT, OT, GI, Nutrition, Pulmonary, Regular diet.
[2024-09-21 16:00] VITALS: BP 137/75; PULSE 88; RESP 17; TEMP 36.6; O2SAT 98
[2024-09-21] MEDS: MULTIVITAMIN TABLET 1 EACH PO (16:02)
--- NOTE | 2024-09-21 16:42 | EXP.PN ---
Subjective *Date: 09/21/24 *Time: 16:42 Interval history: Patient awake and alert and ambulating the halls today. The patient is eating well and maintaining nutrition. Exam Data for Last 24 hours Vital signs and Labs for Last 24 Hours: Temp Pulse Resp BP Pulse Ox O2 Del Method O2 Flow Rate 99.2 F 99 H 16 116/76 96 Room Air 2 09/21/24 07:28 09/21/24 12:00 09/21/24 12:00 09/21/24 12:00 09/21/24 12:00 09/21/24 13:56 09/16/24 17:15 Laboratory Results - last 24 hr 09/21/24 05:52: WBC 22.3 H*, RBC 3.68 L, Hgb 13.7 L, Hct 40.7 L, MCV 110.6 H, MCH 37.2 H, MCHC 33.7, RDW 15.3, Plt Count 349, MPV 11.2 H, Neut % (Auto) 78.3, Lymph % (Auto) 3.8 L, [place] % (Auto) 10.7 H, Eos % (Auto) 0.0 L, Baso % (Auto) 0.8, Neut # (Auto) 17.5 H, Lymph # (Auto) 0.9, [place] # (Auto) 2.4 H, Eos # (Auto) 0.0, Baso # (Auto) 0.2, Total Counted 100, Neutrophils % (Manual) 68, Band Neutrophils % 2.0, Lymphocytes % (Manual) 6 L, Monocytes % (Manual) 21 H, Eosinophils % (Manual) 2, Basophils % (Manual) 1.0, Platelet Estimate Normal, Macrocytosis 2+, PT 12.8 H, INR 1.18 H, Sodium 134 L, Potassium 3.6, Chloride 102, Carbon Dioxide 24, Anion Gap 11.6, BUN 17, Creatinine 1.00, Estimated Creat Clear 102, Estimated GFR 76, Est GFR ( Amer) 93, Glucose 95, Calcium 7.9 L, Magnesium 2.1 D, Total Bilirubin 28.6 H*, AST 598 H*, ALT 369 H*, Alkaline Phosphatase 182 H, Total Protein 7.6, Albumin 3.8, Globulin 3.8 H, Albumin/Globulin Ratio 1.0 L I & O for Last 24 hours: Intake & Output 09/18/24 09/19/24 09/20/24 09/21/24 23:59 23:59 23:59 23:59 Intake Total 1355 / 1355 1500 / 2000 1640 / 1820 1380 / 1380 Output Total 1550 / 1550 250 / 250 0 / 0 Balance -195 / -195 1250 / 1750 1640 / 1820 1379 / 1379 Weight 207 lb 1.6 oz 198 lb 7.997 oz 199 lb 198 lb 15.828 oz *Routine Abdominal Exam Abdominal: Present soft Comments: Marked hepatomegaly with no ballotable liver Assessment and Plan *Assessment and plan (1) Jaundice: Status: Acute Category: Medical Code(s): R17 - Unspecified jaundice (2) Liver failure: Status: Acute Qualifiers: Liver failure chronicity: acute Hepatic coma status: without hepatic coma Qualified Code(s): K72.00 - Acute and subacute hepatic failure without coma Category: Medical Code(s): K72.90 - Hepatic failure, unspecified without coma (3) Chronic alcoholism: Status: Acute Category: Medical Code(s): F10.20 - Alcohol dependence, uncomplicated Plan 1. Severe acute alcoholic hepatitis with profound jaundice. He is receiving methylprednisolone and has received at least 5 days of acetylcysteine. The patient does not show signs of encephalopathy or ascites. He is not manifested any GI bleeding. His transaminases and bilirubin have failed to improve over the course of the last 7 or 8 days on steroids/acetylcysteine and good nutritional intake. I did discuss the case with Dr. Hein and the patient has severe intrahepatic cholestasis with failure of resolution of jaundice. He does not manifest any other significant problems with liver failure (i.e. encephalopathy, ascites or variceal bleeding). He has not shown significant decline in bilirubin/transaminases with above treatment and now must consider liver transplantation as possible rescue. Other possibly effective treatments may be granulocyte colony-stimulating factor which is not available but may be in tertiary center.
--- NOTE | 2024-09-21 17:39 | PEERSUPPORT ---
Peer Support Note Patient Information Patient Information: DOS: 09/21/2024 ? Reason: ETOH/AUD ? Ps follow up ? Motivation: Pt stated he has discussed with his of Mala to get the ongoing help and support for his recovery once discharged. He and she are in agreement that this is something that he needs and feels hopeful in doing to stay sober. -Pt shared his saying before being admitted that She wanted her back Ps explored what he heard when she said this. Pt tearfully said She loves me and wants him to get better. ? Pt shares openly of his work with the [employer] on [employer] de[employer]. He retired and is able to live comfortably with security of his being taken care of. Pt has a new found appreciation for life and having the ability to walk and have people care for him as he reflects on his life. ? Pt becomes restless when he is not able to get up out of bed and move, he has been very independent all of his life and now having a hard reynaldo e with not being able to do like he once could. ? Ps validates feelings as a person ages and becomes less able but more appreciative to life reflecting his current state. ? Pt is trusting of Dr Chew and feels he has his best interest in caring for him this makes it easier for him to accept the need to stay longer in hospital. ? Self-advocacy: Pt stated doctor started him on medication for the pain in his feet, oxycodone that is bringing him comfort and less pain. ? Pt is drinking acetylcysteine medication in am, he says taste terrible. He knows it is helping him found that putting it in Gatorade has helped the taste some but did not this morning. ? Pt started a steroid, he is unsure why he has to take ten small pills. ? Pt also stated he usually uses an inhaler daily 3 times for his breathing. Say is makes him feel nervous like but helps him to breath. ? Setting Goals: -Mala Appointment post discharge -Exercise to strengthen muscles -Walk: mindfully and slowly -Healthy communication with drs and nurse when he doesn?t understand ask questions, or ask them to repeat. - Continue to discuss conversation to be had with son in regard to recent incident.
--- NOTE | 2024-09-21 18:55 | EXP.ACUTE.PN ---
Subjective *Date: 09/21/24 *Time: 23:24 Interval history: Patient pleasant on exam. No significant withdrawal symptoms at this time. Remains weak but is oriented to self and place and situation. Afebrile. Remains severely jaundiced. Stable on room air. Tolerating p.o. intake. Having bowel movements. Medical Exam Vital signs and Labs for Last 24 Hours: Vital Signs Temp Pulse Resp BP Pulse Ox O2 Del Method 09/21/24 18:15 Room Air 09/21/24 16:00 98 F 88 17 137/75 98 Room Air 09/21/24 13:56 Room Air 09/21/24 12:34 Room Air 09/21/24 12:00 99 H 16 116/76 96 Room Air 09/21/24 09:57 Room Air 09/21/24 08:30 Room Air 09/21/24 08:00 Room Air 09/21/24 07:28 99.2 F 94 H 18 115/71 97 Room Air 09/21/24 06:47 Room Air 09/21/24 04:54 Room Air 09/21/24 04:00 98.4 F 92 H 16 124/69 97 Room Air 09/21/24 02:48 Room Air 09/21/24 01:00 Room Air 09/21/24 00:00 98.0 F 84 16 108/54 L 94 L Room Air 09/20/24 23:00 Room Air 09/20/24 21:00 Room Air 09/20/24 20:00 Room Air 09/20/24 19:46 98.1 F 77 16 133/80 95 Room Air Intake and Output 09/21/24 09/21/24 09/21/24 07:59 15:59 23:59 Intake Total 900 / 1740 480 / 1740 360 / 1740 Output Total 0 / 1 0 / 1 Balance 900 / 1739 479 / 1739 360 / 1739 Intake: Intake, Oral Amount 900 / 1740 480 / 1740 360 / 1740 Output: Output, Urine Amount 0 / 0 0 / 0 0 / 0 Output, Urine Amount (Catheter) Straight Other: Number of Voids 0 0 Number of Unmeasured Voids 1 1 2 Number of Bowel Movements 1 1 1 Weight 90.26 kg Patient Weight 09/21/24 23:59 Weight 90.26 kg Laboratory Results - last 24 hr 09/21/24 05:52: WBC 22.3 H*, RBC 3.68 L, Hgb 13.7 L, Hct 40.7 L, MCV 110.6 H, MCH 37.2 H, MCHC 33.7, RDW 15.3, Plt Count 349, MPV 11.2 H, Neut % (Auto) 78.3, Lymph % (Auto) 3.8 L, [place] % (Auto) 10.7 H, Eos % (Auto) 0.0 L, Baso % (Auto) 0.8, Neut # (Auto) 17.5 H, Lymph # (Auto) 0.9, [place] # (Auto) 2.4 H, Eos # (Auto) 0.0, Baso # (Auto) 0.2, Total Counted 100, Neutrophils % (Manual) 68, Band Neutrophils % 2.0, Lymphocytes % (Manual) 6 L, Monocytes % (Manual) 21 H, Eosinophils % (Manual) 2, Basophils % (Manual) 1.0, Platelet Estimate Normal, Macrocytosis 2+, PT 12.8 H, INR 1.18 H, Sodium 134 L, Potassium 3.6, Chloride 102, Carbon Dioxide 24, Anion Gap 11.6, BUN 17, Creatinine 1.00, Estimated Creat Clear 102, Estimated GFR 76, Est GFR ( Amer) 93, Glucose 95, Calcium 7.9 L, Magnesium 2.1 D, Total Bilirubin 28.6 H*, AST 598 H*, ALT 369 H*, Alkaline Phosphatase 182 H, Total Protein 7.6, Albumin 3.8, Globulin 3.8 H, Albumin/Globulin Ratio 1.0 L I & O for Labs for Last 24 Hours: Intake & Output 09/18/24 09/19/24 09/20/24 09/21/24 23:59 23:59 23:59 23:59 Intake Total 1355 / 1355 1500 / 2000 1640 / 1820 1740 / 1740 Output Total 1550 / 1550 250 / 250 0 / 0 Balance -195 / -195 1250 / 1750 1640 / 1820 1739 / 1739 Weight 93.939 kg 90.038 kg 90.265 kg 90.26 kg Constitutional: Present mild distress, average body habitus, chronically ill appearing and cooperative Head: Present atraumatic and normocephalic ENT: Present normal exam Comment:: Scleral icterus Respiratory: Present normal respiratory effort; Absent rhonchi, wheezes or crackles Cardiac: Present Reg Rate and Rhythm GI: Present soft, tenderness (Mild diffuse right hemiabdomen) and normal bowel sounds; Absent distention Extremities: Present normal inspection and full ROM Skin: Present intact and jaundice; Absent erythema Neuro: Present Grossly Intact, alert, awake, oriented x 3 and moves all extremities Assessment and Plan *Assessment and plan (1) Acute alcoholic hepatitis: Status: Acute Category: Medical Code(s): K70.10 - Alcoholic hepatitis without ascites (2) Liver failure: Status: Acute Qualifiers: Hepatic coma status: without hepatic coma Liver failure chronicity: acute Qualified Code(s): K72.00 - Acute and subacute hepatic failure without coma Category: Medical Code(s): K72.90 - Hepatic failure, unspecified without coma (3) Jaundice: Status: Acute Category: Medical Code(s): R17 - Unspecified jaundice (4) Asterixis: Status: Acute Category: Medical Code(s): R27.8 - Other lack of coordination (5) Alcohol intoxication: Status: Acute Qualifiers: Complication of substance-induced condition: uncomplicated Qualified Code(s): F10.920 - Alcohol use, unspecified with intoxication, uncomplicated Category: Medical Code(s): F10.929 - Alcohol use, unspecified with intoxication, unspecified (6) Transaminitis: Status: Acute Category: Medical Code(s): R74.01 - Elevation of levels of liver transaminase levels (7) Primary hypertension: Status: Chronic Category: Medical Code(s): I10 - Essential (primary) hypertension (8) COPD (chronic obstructive pulmonary disease): Status: Chronic Qualifiers: COPD type: unspecified COPD Qualified Code(s): J44.9 - Chronic obstructive pulmonary disease, unspecified Category: Medical Code(s): J44.9 - Chronic obstructive pulmonary disease, unspecified (9) GERD (gastroesophageal reflux disease): Status: Chronic Qualifiers: Esophagitis presence: esophagitis presence not specified Qualified Code(s): K21.9 - Gastro-esophageal reflux disease without esophagitis Category: Medical Code(s): K21.9 - Gastro-esophageal reflux disease without esophagitis (10) HLD (hyperlipidemia): Status: Chronic Qualifiers: Hyperlipidemia type: mixed hyperlipidemia Qualified Code(s): E78.2 - Mixed hyperlipidemia Category: Medical Code(s): E78.5 - Hyperlipidemia, unspecified (11) Coronary artery disease: Status: Chronic Qualifiers: Associated angina: without angina Coronary Disease-Associated Artery/Lesion type: [place] artery [place] vs. transplanted heart: [place] heart Qualified Code(s): I25.10 - Atherosclerotic heart disease of [place] coronary artery without angina pectoris Category: Medical Code(s): I25.10 - Atherosclerotic heart disease of [place] coronary artery without angina pectoris (12) Coagulopathy: Status: Acute Category: Medical Code(s): D68.9 - Coagulation defect, unspecified Plan Pritesh Aguilar is a 59-year-old male who presented acutely intoxicated with acute liver failure and alcohol withdrawal. Discussed case with ER physician and GI prior to admission. Patient is critically ill. High risk for decompensation. Will score calculated today, 0.78. Poor responder to steroids. Will continue however at this time given severity of current condition. Gastroenterology continuing to assist with care. Continues to require inpatient management. Problems addressed as follows: #Acute alcoholic hepatitis (severe) #Acute liver failure #Painless jaundice #Alcohol intoxication, resolved #High anion gap metabolic acidosis, resolved #Hepatic metabolic encephalopathy, resolved #Severe protein calorie malnutrition #Leukocytosis - Maddrey's discriminant function of 62.4, MELD score 27. Confer poor prognosis and 20% 3-month mortality. CT shows severely enlarged liver, no appreciable varices however. No ascites. - Initial alcohol level elevated 272. No CIWA score in over 48 hours. Will discontinue at this time. -Liver labs remain abnormal with bilirubin 28.6, AST 598, ALT 369, alk phos 182. -White count remains elevated at 22, likely leukemoid reaction secondary to steroids. No signs of infection at this time. ? RUQ ultrasound 09/15/2024 revealed hepatomegaly, cholelithiasis with no CBD dilation. ? Discussed with GI, recommend continuing steroids daily with methylprednisolone 40 mg p.o. Discontinue NAC. Will monitor through the remainder of this week. If no improvement in bilirubin, will consider transferring to tertiary center with transplant capabilities for evaluation. ? Continue Compazine as needed for nausea/vomiting. - Continue rifaximin 550 mg 3 times daily for hepatic encephalopathy, asterixis, hyperammonia. - Follow-up morning CBC, CMP, magnesium, INR/PT, phosphorus ordered daily - Nutrition consulted to assist with dietary recommendations and risk for malnutrition. Patient at risk for refeeding syndrome. Recommend boost/protein supplement with trays - green building design specialist consulted. ? Follow-up hemochromatosis PCR, pending. Iron studies do show some iron overload, iron saturation close to 90%. ? Leukocytosis likely secondary to steroids and inflammatory hepatitis. No signs of infection. - INR 1.18. No signs of active bleeding #Alcohol withdrawal #Wernicke's encephalopathy #Fall - Acutely intoxicated with initial alcohol level of 272. Initiated on CIWA protocol with lorazepam due to acute liver injury. Will hold on phenobarbital due to contraindication in acute liver failure. - Multivitamin with supplementation including folate and thiamine daily. ? Patient did have a fall during hospitalization, hit his forehead slightly on the toilet. Small bruise. CT head with no acute findings. Patient has had no focal neurological deficits, alert and oriented. ? Highly suspect Warnicke's encephalopathy, had horizontal nystagmus, confabulation/memory loss, and ataxia. Significantly improved with IV thiamine. ? CIWA scores virtually normal today. Discontinue protocol today. ? Continue gabapentin 300 mg twice daily. Patient does not want higher doses as it makes him depressed ? Transition to oral thiamine 100 mg daily, can be stopped in 1 week. Discontinued IV thiamine today. - Seizure precautions ? PT/OT following, recommending SNF at this time. Case management assisting with placement. # Suspected BPH ? Urinary retention requiring straight caths improved with tamsulosin 0.8 mg daily. #Peripheral neuropathy #Suspected restless leg syndrome ? Nighttime restless legs, numbness/tingling significantly improved since starting Requip. However, continues to have daytime symptoms. #Hypokalemia #Hypomagnesemia #Hypophosphatemia ?Potassium 3.6, magnesium 2.1. Kidney function normal with BUN 17, creatinine 1.0. #Low folic acid ? Folic acid 2.41. Continue daily folic acid 1 mg. ? B12 normal 747 Hypertension: Diltiazem 180 mg extended release twice daily COPD: On room air. Continue DuoNebs every 6 hours prn. Goal sats greater 90%. In no acute exacerbation at this time GERD: Continue pantoprazole as formulary conversion 40 mg twice daily Full code Anticoagulation contraindicated given coagulopathy and INR of 1.18 Regular diet with protein supplementation
[2024-09-21 20:00] VITALS: BP 136/79; PULSE 86; RESP 16; TEMP 36.7; O2SAT 95
[2024-09-21] MEDS: TAMSULOSIN 0.4MG CAPSULE 0.8 MG PO (20:21)
[2024-09-21] MEDS: OXYCODONE 5MG IMMEDIATE RELEASE TABLET 5 MG PO (20:21)
[2024-09-22] VITALS: BP 117/50; PULSE 85; RESP 17; TEMP 36.8; O2SAT 95
--- NOTE | 2024-09-22 03:06 | PC.NURSE ---
pt complained of gas, verbal order for simethicone 80mg now
[2024-09-22] MEDS: SIMETHICONE 80MG CHEWABLE TABLET 80 MG PO (03:10)
[2024-09-22 04:00] VITALS: BP 117/68; PULSE 78; RESP 17; TEMP 37; O2SAT 96; BMI 27.1
[2024-09-22 06:14] LABS: Basophils # 0.1 K/mm3 (0-0.2); Basophils % 0.6 % (0.1-2.0); Hemoglobin 13.2 g/dL (14.1-18.0); Lymphocytes # 0.9 K/mm3 (0.7-4.5); Lymphocytes % 3.8 % (10-50); Mean Corpuscular HGB Conc 33.8 g/dL (31.8-35.4); Mean Corpuscular Hemoglobin 36.8 pg (27.0-31.2); Mean Corpuscular Volume 108.6 fl (80-94); Mean Platelet Volume 11.2 fl (7.4-10.4); Monocytes # 2.2 K/mm3 (0.1-1.0); Monocytes % 9.5 % (1.7-9.3); Neutrophils # 18.2 K/mm3 (1.8-7.8); Neutrophils % 79.9 % (37.0-80.0); Platelet Count 354 K/mm3 (142-424); Red Blood Count 3.59 M/mm3 (4.60-6.20); Red Cell Distribution Width 14.9 % (11.5-17.5); White Blood Count 22.7 K/mm3 (4.8-10.8)
[2024-09-22 06:25] LABS: Albumin Level 3.6 g/dl (3.5-5.0); Chloride 104 mmol/L (98-107)
[2024-09-22 06:26] LABS: MANUAL DIFFERENTIAL MANUAL DIFFERENTIAL (MANUAL DIFF); Potassium 3.5 mmoL/L (3.5-5.1); Sodium 134 mmol/L (136-145)
[2024-09-22 06:28] LABS: Alanine Aminotransferase 434 U/L (12-78); Albumin/Globulin Ratio 0.9 (1.1-1.8); Anion Gap 11.5 mEq/L (5-15); Aspartate Amino Transferase 685 U/L (17-59); Blood Urea Nitrogen 20 mg/dl (9-20); Carbon Dioxide 22 mmol/L (22.0-30.0); Creatinine Clearance Estimated 102 mL/min (50-200); Estimated Glomerular Filt Rate 76 ml/min (>60); GFR (African American) 93 ML/MIN (>60); Globulin 3.8 g/dL (1.3-3.2); Total Protein,Serum 7.4 g/dl (6.3-8.2)
[2024-09-22 06:29] LABS: Alkaline Phosphatase 183 U/L (38-126); Bilirubin,Total 26.5 mg/dl (0.2-1.3); Glucose 86 mg/dl (74-100); Magnesium 1.8 mg/dl (1.6-2.3)
[2024-09-22 06:33] LABS: INR 1.16 (0.9-1.1); Prothrombin Time 12.5 seconds (9.2-12.1)
--- NOTE | 2024-09-22 06:50 | PC.NURSE ---
Alert and oriented. Refused bed alarm. Checked on patient throughout night, rested well. Ambulates to the restroom. Complained of pain one time and gas one time, treated per oct. Call light in reach.
[2024-09-22 07:51] LABS: Lymphocytes % 4 % (10-50); Monocytes % 5 % (2-9); Neutrophils % 79 % (42-76); Total Cells Counted 100
[2024-09-22 07:52] LABS: Platelet Estimate Normal
[2024-09-22 07:53] LABS: Macrocytosis 2+; Target Cells 1+
[2024-09-22 08:00] VITALS: BP 119/59; PULSE 92; RESP 18; TEMP 36.7; O2SAT 96
[2024-09-22] MEDS: dilTIAZem HCL 180MG CAP.ER.24H 180 MG PO ×2 (09:20→20:42)
[2024-09-22] MEDS: GABAPENTIN 300MG CAPSULE 300 MG PO ×2 (09:20→20:42)
[2024-09-22] MEDS: FOLIC ACID 1MG TABLET 1 MG PO (09:20)
[2024-09-22] MEDS: PANTOPRAZOLE 40MG TABLET 40 MG PO ×2 (09:20→20:42)
[2024-09-22] MEDS: guaiFENesin 600 MG TAB.ER.12H PO ×2 (09:20→20:42)
[2024-09-22] MEDS: THIAMINE 100MG TABLET 100 MG PO (09:21)
[2024-09-22] MEDS: RIFAXIMIN 550MG TABLET 550 MG PO ×3 (09:22→20:42)
[2024-09-22] MEDS: POTASSIUM CHLORIDE 20MEQ TAB 40 MEQ PO ×2 (09:35→12:07)
[2024-09-22 12:00] VITALS: BP 130/70; PULSE 91; RESP 18; TEMP 36.9; O2SAT 97
--- NOTE | 2024-09-22 15:14 | EXP.PN ---
Subjective *Date: 09/22/24 *Time: 15:14 Interval history: Patient voicing his desire to go home today. The patient is awake and alert. He is deeply jaundiced. He is ambulatory and eating well. Exam Data for Last 24 hours Vital signs and Labs for Last 24 Hours: Temp Pulse Resp BP Pulse Ox O2 Del Method O2 Flow Rate 98.4 F 91 H 18 130/70 97 Room Air 2 09/22/24 12:00 09/22/24 12:00 09/22/24 12:00 09/22/24 12:00 09/22/24 12:00 09/22/24 14:58 09/16/24 17:15 Laboratory Results - last 24 hr 09/22/24 05:37: WBC 22.7 H*, RBC 3.59 L, Hgb 13.2 L, Hct 39.0 L, MCV 108.6 H, MCH 36.8 H, MCHC 33.8, RDW 14.9, Plt Count 354, MPV 11.2 H, Neut % (Auto) 79.9, Lymph % (Auto) 3.8 L, [place] % (Auto) 9.5 H, Eos % (Auto) 0.0 L, Baso % (Auto) 0.6, Neut # (Auto) 18.2 H, Lymph # (Auto) 0.9, [place] # (Auto) 2.2 H, Eos # (Auto) 0.0, Baso # (Auto) 0.1, Total Counted 100, Neutrophils % (Manual) 79 H, Band Neutrophils % 6.0, Lymphocytes % (Manual) 4 L, Atypical Lymphs % 6.0, Monocytes % (Manual) 5, Platelet Estimate Normal, Macrocytosis 2+, Target Cells 1+, PT 12.5 H, INR 1.16 H, Sodium 134 L, Potassium 3.5, Chloride 104, Carbon Dioxide 22, Anion Gap 11.5, BUN 20, Creatinine 1.00, Estimated Creat Clear 102, Estimated GFR 76, Est GFR ( Amer) 93, Glucose 86, Calcium 8.0 L, Magnesium 1.8 D, Total Bilirubin 26.5 H*, AST 685 H*, ALT 434 H*, Alkaline Phosphatase 183 H, Total Protein 7.4, Albumin 3.6, Globulin 3.8 H, Albumin/Globulin Ratio 0.9 L I & O for Last 24 hours: Intake & Output 09/19/24 09/20/24 09/21/24 09/22/24 23:59 23:59 23:59 23:59 Intake Total 1500 / 2000 1640 / 1820 1740 / 2040 1260 / 1260 Output Total 250 / 250 0 / 0 1 / 0 / 0 Balance 1250 / 1750 1640 / 1820 1739 / 2039 1260 / 1260 Weight 198 lb 7.997 oz 199 lb 198 lb 15.828 oz 200 lb 8 oz *Routine HEENT Exam Comments: Deeply icteric sclera *Routine Abdominal Exam Comments: Marked hepatomegaly Assessment and Plan *Assessment and plan (1) Liver failure: Status: Acute Qualifiers: Liver failure chronicity: acute Hepatic coma status: without hepatic coma Qualified Code(s): K72.00 - Acute and subacute hepatic failure without coma Category: Medical Code(s): K72.90 - Hepatic failure, unspecified without coma (2) Jaundice: Status: Acute Category: Medical Code(s): R17 - Unspecified jaundice (3) Acute alcoholic hepatitis: Status: Acute Category: Medical Code(s): K70.10 - Alcoholic hepatitis without ascites Plan 1. Severe acute alcoholic hepatitis with profound jaundice/intrahepatic cholestasis. He is not clearly responding to methylprednisolone . I had discussed need for transfer to tertiary center for consideration of liver transplantation as rescue. Other potential treatments could be granulocyte colony-stimulating factor which may be available in a tertiary center such as the [facility]. In regard to his desire to leave, his predicted mortality is extremely high and I would not consider discharge to home until bilirubin and predictors of poor outcome begin to improve. The patient does however appear to be committed to long-term alcohol rehabilitation and from a comorbid standpoint would benefit from rescue liver transplantation.
[2024-09-22 16:00] VITALS: BP 158/72; PULSE 96; RESP 20; TEMP 36.8; O2SAT 98
--- NOTE | 2024-09-22 17:01 | EXP.ACUTE.PN ---
Subjective *Date: 09/22/24 *Time: 17:01 Interval history: Patient interactive on exam today. Alert and oriented x 4. Discussed his need for continued inpatient management. Patient somewhat tearful when talking again about his liver. Has been working with peers client application support specialist daily. No active signs of bleeding. No nausea or vomiting. Tolerating p.o. intake. States he feels well. Is bright yellow on evaluation after walking in the room Medical Exam Vital signs and Labs for Last 24 Hours: Vital Signs Temp Pulse Resp BP Pulse Ox O2 Del Method 09/22/24 16:17 Room Air 09/22/24 14:58 Room Air 09/22/24 12:52 Room Air 09/22/24 12:00 98.4 F 91 H 18 130/70 97 Room Air 09/22/24 10:10 Room Air 09/22/24 09:00 Room Air 09/22/24 08:00 Room Air 09/22/24 08:00 98.0 F 92 H 18 119/59 L 96 Room Air 09/22/24 06:35 Room Air 09/22/24 05:00 Room Air 09/22/24 04:00 98.6 F 78 17 117/68 96 Room Air 09/22/24 03:00 Room Air 09/22/24 01:00 Room Air 09/22/24 00:00 98.2 F 85 17 117/50 L 95 Room Air 09/21/24 23:00 Room Air 09/21/24 21:00 Room Air 09/21/24 20:00 Room Air 09/21/24 20:00 98.1 F 86 16 136/79 95 Room Air 09/21/24 18:15 Room Air Intake and Output 09/22/24 09/22/24 09/22/24 07:59 15:59 23:59 Intake Total 300 / 1260 960 / 1260 Output Total 0 / 0 0 / 0 Balance 300 / 1260 960 / 1260 Intake: Intake, Oral Amount 300 / 1260 960 / 1260 Output: Output, Urine Amount 0 / 0 0 / 0 Other: Number of Unmeasured Voids 1 1 Number of Bowel Movements 1 Weight 90.945 kg Patient Weight 09/22/24 23:59 Weight 90.945 kg Laboratory Results - last 24 hr 09/15/24 15:12: Hemochromatosis DNA PCR Comment 09/22/24 05:37: WBC 22.7 H*, RBC 3.59 L, Hgb 13.2 L, Hct 39.0 L, MCV 108.6 H, MCH 36.8 H, MCHC 33.8, RDW 14.9, Plt Count 354, MPV 11.2 H, Neut % (Auto) 79.9, Lymph % (Auto) 3.8 L, [place] % (Auto) 9.5 H, Eos % (Auto) 0.0 L, Baso % (Auto) 0.6, Neut # (Auto) 18.2 H, Lymph # (Auto) 0.9, [place] # (Auto) 2.2 H, Eos # (Auto) 0.0, Baso # (Auto) 0.1, Total Counted 100, Neutrophils % (Manual) 79 H, Band Neutrophils % 6.0, Lymphocytes % (Manual) 4 L, Atypical Lymphs % 6.0, Monocytes % (Manual) 5, Platelet Estimate Normal, Macrocytosis 2+, Target Cells 1+, PT 12.5 H, INR 1.16 H, Sodium 134 L, Potassium 3.5, Chloride 104, Carbon Dioxide 22, Anion Gap 11.5, BUN 20, Creatinine 1.00, Estimated Creat Clear 102, Estimated GFR 76, Est GFR ( Amer) 93, Glucose 86, Calcium 8.0 L, Magnesium 1.8 D, Total Bilirubin 26.5 H*, AST 685 H*, ALT 434 H*, Alkaline Phosphatase 183 H, Total Protein 7.4, Albumin 3.6, Globulin 3.8 H, Albumin/Globulin Ratio 0.9 L I & O for Labs for Last 24 Hours: Intake & Output 09/19/24 09/20/24 09/21/24 09/22/24 23:59 23:59 23:59 23:59 Intake Total 1500 / 2000 1640 / 1820 174 / 0 1260 / 1260 Output Total 250 / 250 0 / 0 1 / 1 0 / 0 Balance 1250 / 1750 1639 / 1820 1738 / 2038 1260 / 1260 Weight 90.038 kg 90.265 kg 90.26 kg 90.945 kg Constitutional: Present no acute distress, average body habitus, chronically ill appearing and cooperative Head: Present atraumatic and normocephalic ENT: Present normal exam Comment:: Scleral icterus Respiratory: Present normal respiratory effort; Absent rhonchi, wheezes or crackles Cardiac: Present Reg Rate and Rhythm GI: Present soft, tenderness (Mild diffuse right hemiabdomen) and normal bowel sounds; Absent distention Extremities: Present normal inspection and full ROM Skin: Present intact and jaundice; Absent erythema Neuro: Present Grossly Intact, alert, awake, oriented x 3 and moves all extremities Assessment and Plan *Assessment and plan (1) Acute alcoholic hepatitis: Status: Acute Category: Medical Code(s): K70.10 - Alcoholic hepatitis without ascites (2) Liver failure: Status: Acute Qualifiers: Liver failure chronicity: acute Hepatic coma status: without hepatic coma Qualified Code(s): K72.00 - Acute and subacute hepatic failure without coma Category: Medical Code(s): K72.90 - Hepatic failure, unspecified without coma (3) Jaundice: Status: Acute Category: Medical Code(s): R17 - Unspecified jaundice (4) Asterixis: Status: Resolved Category: Medical Code(s): R27.8 - Other lack of coordination (5) Alcohol intoxication: Status: Acute Qualifiers: Complication of substance-induced condition: uncomplicated Qualified Code(s): F10.920 - Alcohol use, unspecified with intoxication, uncomplicated Category: Medical Code(s): F10.929 - Alcohol use, unspecified with intoxication, unspecified (6) Transaminitis: Status: Acute Category: Medical Code(s): R74.01 - Elevation of levels of liver transaminase levels (7) Primary hypertension: Status: Chronic Category: Medical Code(s): I10 - Essential (primary) hypertension (8) COPD (chronic obstructive pulmonary disease): Status: Chronic Qualifiers: COPD type: unspecified COPD Qualified Code(s): J44.9 - Chronic obstructive pulmonary disease, unspecified Category: Medical Code(s): J44.9 - Chronic obstructive pulmonary disease, unspecified (9) GERD (gastroesophageal reflux disease): Status: Chronic Qualifiers: Esophagitis presence: esophagitis presence not specified Qualified Code(s): K21.9 - Gastro-esophageal reflux disease without esophagitis Category: Medical Code(s): K21.9 - Gastro-esophageal reflux disease without esophagitis (10) HLD (hyperlipidemia): Status: Chronic Qualifiers: Hyperlipidemia type: mixed hyperlipidemia Qualified Code(s): E78.2 - Mixed hyperlipidemia Category: Medical Code(s): E78.5 - Hyperlipidemia, unspecified (11) Coronary artery disease: Status: Chronic Qualifiers: Coronary Disease-Associated Artery/Lesion type: [place] artery [place] vs. transplanted heart: [place] heart Associated angina: without angina Qualified Code(s): I25.10 - Atherosclerotic heart disease of [place] coronary artery without angina pectoris Category: Medical Code(s): I25.10 - Atherosclerotic heart disease of [place] coronary artery without angina pectoris (12) Coagulopathy: Status: Acute Category: Medical Code(s): D68.9 - Coagulation defect, unspecified Plan Pritesh Aguilar is a 59-year-old male who presented acutely intoxicated with acute liver failure and alcohol withdrawal. Discussed case with ER physician and GI prior to admission. Patient is critically ill. High risk for decompensation. Will score calculated today, 0.78. Poor responder to steroids. Will continue however at this time given severity of current condition. Gastroenterology continuing to assist with care. Continues to require inpatient management. Asked today if he had ever been told he had cirrhosis, he states he does not recall ever being told he had cirrhosis. Does recall being told multiple times to stop drinking however. Problems addressed as follows: #Acute alcoholic hepatitis (severe) #Acute liver failure #Painless jaundice #Alcohol intoxication, resolved #High anion gap metabolic acidosis, resolved #Hepatic metabolic encephalopathy, resolved #Severe protein calorie malnutrition #Leukocytosis - Maddrey's discriminant function of 62.4, MELD score 27. Confer poor prognosis and 20% 3-month mortality. CT shows severely enlarged liver, no appreciable varices however. No ascites. - Initial alcohol level elevated 272. No signs of withdrawal for over 72 hours -Liver labs remain abnormal with bilirubin 26, AST 685, ALT 434, alk phos 183 -White count remains elevated at 22, likely leukemoid reaction secondary to steroids. No signs of infection at this time. ? RUQ ultrasound 09/15/2024 revealed hepatomegaly, cholelithiasis with no CBD dilation. ? Discussed with GI, recommend continuing steroids daily with methylprednisolone 40 mg p.o. recommend attempting transfer for transplant evaluation. [facility] contacted. Patient on wait list for [facility] ? Continue Compazine as needed for nausea/vomiting. - Continue rifaximin 550 mg 3 times daily for hepatic encephalopathy, asterixis, hyperammonia. - Follow-up morning CBC, CMP, magnesium, INR/PT, phosphorus ordered daily - Nutrition consulted to assist with dietary recommendations and risk for malnutrition. Patient at risk for refeeding syndrome. Recommend boost/protein supplement with trays - water resource specialist consulted. ? Follow-up hemochromatosis PCR, pending. Iron studies do show some iron overload, iron saturation close to 90%. - INR 1.16. No signs of active bleeding #Alcohol withdrawal #Wernicke's encephalopathy #Fall -No further signs of alcohol withdrawal for over 3 days. - Multivitamin with supplementation including folate and thiamine daily. ? Patient did have a fall during hospitalization, hit his forehead slightly on the toilet. Small bruise. CT head with no acute findings. Patient has had no focal neurological deficits, alert and oriented. ? Highly suspect Wernicke's encephalopathy, had horizontal nystagmus, confabulation/memory loss, and ataxia. Significantly improved with IV thiamine. ? Continue gabapentin 300 mg twice daily. Patient does not want higher doses as it makes him depressed ? oral thiamine 100 mg daily - Seizure precautions ? PT/OT following, recommending SNF at this time. Case management assisting with placement. # Suspected BPH ? Urinary retention requiring straight caths improved with tamsulosin 0.8 mg daily. #Peripheral neuropathy #Suspected restless leg syndrome ? Nighttime restless legs, numbness/tingling significantly improved since starting Requip. However, continues to have daytime symptoms. #Hypokalemia #Hypomagnesemia #Hypophosphatemia ?Potassium 3.5, magnesium 1.8, BUN 20, creatinine 1 #Low folic acid ? Folic acid 2.41. Continue daily folic acid 1 mg. ? B12 normal 747 Hypertension: Diltiazem 180 mg extended release twice daily COPD: On room air. Continue DuoNebs every 6 hours prn. Goal sats greater 90%. In no acute exacerbation at this time GERD: Continue pantoprazole as formulary conversion 40 mg twice daily Full code Anticoagulation contraindicated given coagulopathy and INR of 1.18 Regular diet with protein supplementation
[2024-09-22] MEDS: MULTIVITAMIN TABLET 1 EACH PO (17:03)
--- NOTE | 2024-09-22 17:44 | PC.NURSE ---
Pt. is awaiting a bed a [facility].
--- NOTE | 2024-09-22 17:58 | PEERSUPPORT ---
Peer Support Note Patient Information Patient Information: DOS: 09/22/2024 ? Reason: ETOH/AUD ? Pt expresses emotionally when discussing the doctors recent visit. He says he is being transferred to [facility] for a possible liver transplant. He is overwhelmed by this and angry with himself saying this is his fault and he is stupid. ? Ps provided empathetic listening, validating feelings. Ps reiterates that alcohol use disorder is a sickness he has suffered with for many years and this can be used for motivation to make changes in his life and take it one day at a time. ? Pt is receptive with ps. ? Ps explores the reflections he has had since talking to his doctor and conversations had with his . ? Pt stated his and him agree that this is best to be transferred to [facility], he trust their doctors and knowledge. ? He stated Dr. Fountain here stated he did not feel he was committed to his sobriety at this point. Pt says this hurt him and made him upset, as the doctor does not realize the thoughts and emotions or feelings of being in the shape he is in. ? Ps validates his feelings and shifts focus on his commitment to his sobriety for himself, making a decision to use any negative feeling or comment from anyone in any setting to remain committed to himself. ? Pt is accepting of this, and understands the responsibility of sobriety and the challenges he will face at times. ? Ps spend ample time with pt allowing him to reflect on the things that matter the most to him for motivators during times of hardship. 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 He values his jesscia, and feels very supported by his buddhist family. 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 Animals have been a part of his life since he was a child and caring for them. -Friends he made while working; memories of times that bring him constantino and thankfulness. ? ? Pt expresses gratitude to ps for support. Ps will follow up on 09/23/2024
[2024-09-22 19:53] VITALS: BP 126/45; PULSE 87; RESP 18; TEMP 36.7; O2SAT 94
[2024-09-22] MEDS: TAMSULOSIN 0.4MG CAPSULE 0.8 MG PO (20:42)
[2024-09-22] MEDS: OXYCODONE 5MG IMMEDIATE RELEASE TABLET 5 MG PO (20:42)
[2024-09-23] VITALS: BP 116/61; PULSE 85; RESP 17; TEMP 36.9; O2SAT 95
[2024-09-23 04:00] VITALS: BP 121/71; PULSE 88; RESP 17; TEMP 36.6; O2SAT 96; BMI 26.2
[2024-09-23 06:37] LABS: Basophils # 0.2 K/mm3 (0-0.2); Basophils % 0.7 % (0.1-2.0); Hematocrit 40.1 % (42.0-52.0); Hemoglobin 13.3 g/dL (14.1-18.0); Lymphocytes # 0.6 K/mm3 (0.7-4.5); Lymphocytes % 2.5 % (10-50); Mean Corpuscular HGB Conc 33.2 g/dL (31.8-35.4); Mean Corpuscular Hemoglobin 36.2 pg (27.0-31.2); Mean Corpuscular Volume 109.3 fl (80-94); Mean Platelet Volume 11.6 fl (7.4-10.4); Monocytes # 1.9 K/mm3 (0.1-1.0); Monocytes % 7.5 % (1.7-9.3); Neutrophils # 20.6 K/mm3 (1.8-7.8); Neutrophils % 83.1 % (37.0-80.0); Platelet Count 322 K/mm3 (142-424); Red Blood Count 3.67 M/mm3 (4.60-6.20); Red Cell Distribution Width 14.6 % (11.5-17.5); White Blood Count 24.8 K/mm3 (4.8-10.8)
[2024-09-23 06:53] LABS: Albumin Level 3.8 g/dl (3.5-5.0); Chloride 103 mmol/L (98-107); Sodium 134 mmol/L (136-145)
[2024-09-23 06:54] LABS: Potassium 4.1 mmoL/L (3.5-5.1)
[2024-09-23 06:56] LABS: Alanine Aminotransferase 571 U/L (12-78); Anion Gap 11.1 mEq/L (5-15); Blood Urea Nitrogen 22 mg/dl (9-20); Carbon Dioxide 24 mmol/L (22.0-30.0); Creatinine Clearance Estimated 82 mL/min (50-200); Estimated Glomerular Filt Rate 62 ml/min (>60); GFR (African American) 75 ML/MIN (>60); Globulin 3.8 g/dL (1.3-3.2); Total Protein,Serum 7.6 g/dl (6.3-8.2)
[2024-09-23 06:57] LABS: Alkaline Phosphatase 199 U/L (38-126); Calcium 8.7 mg/dl (8.4-10.2); Glucose 90 mg/dl (74-100); Magnesium 1.9 mg/dl (1.6-2.3); Phosphorous 2.6 mg/dl (2.5-4.5)
[2024-09-23 07:02] LABS: MANUAL DIFFERENTIAL MANUAL DIFFERENTIAL (MANUAL DIFF)
[2024-09-23 07:26] LABS: Aspartate Amino Transferase 802 U/L (17-59); Bilirubin,Total 28.1 mg/dl (0.2-1.3)
[2024-09-23 08:00] VITALS: BP 119/58; PULSE 101; RESP 18; TEMP 36.7; O2SAT 98
[2024-09-23] MEDS: FOLIC ACID 1MG TABLET 1 MG PO (08:49)
[2024-09-23] MEDS: guaiFENesin 600 MG TAB.ER.12H PO ×2 (08:49→20:28)
[2024-09-23] MEDS: GABAPENTIN 300MG CAPSULE 300 MG PO ×2 (08:49→20:28)
[2024-09-23] MEDS: dilTIAZem HCL 180MG CAP.ER.24H 180 MG PO ×2 (08:49→20:29)
[2024-09-23] MEDS: PANTOPRAZOLE 40MG TABLET 40 MG PO ×2 (08:50→20:28)
[2024-09-23] MEDS: THIAMINE 100MG TABLET 100 MG PO (08:50)
[2024-09-23] MEDS: RIFAXIMIN 550MG TABLET 550 MG PO ×2 (08:50→12:13)
[2024-09-23] MEDS: OXYCODONE 5MG IMMEDIATE RELEASE TABLET 5 MG PO ×2 (08:51→20:28)
[2024-09-23 09:12] LABS: INR 1.15 (0.9-1.1); Prothrombin Time 12.4 seconds (9.2-12.1)
[2024-09-23 09:28] LABS: Monocytes % 14 % (2-9); Neutrophils % 83 % (42-76); Total Cells Counted 100
[2024-09-23 09:29] LABS: Macrocytosis 2+; Platelet Estimate Normal
[2024-09-23 12:00] VITALS: BP 133/87; PULSE 103; RESP 18; TEMP 36.9; O2SAT 96
[2024-09-23] MEDS: MAGNESIUM SULFATE IN WATER 2 GM/50 ML PIGGYBACK IV (12:12)
[2024-09-23 12:29] LABS: Adenovirus,PCR Not Detected (NotDetected); Bordetella Pertussis Not Detected (NotDetected); Chlamydophila Pneumoniae, PCR Not Detected (NotDetected); Coronavirus 19, PCR Not Detected (NotDetected); Coronavirus 229E Not Detected (NotDetected); Coronavirus NL63 Not Detected (NotDetected); Coronavirus OC43 Not Detected (NotDetected); Coronovirus HKU1,PCR Not Detected (NotDetected); Human Metapneumovirus Not Detected (NotDetected); Influenza A, PCR Not Detected (NotDetected); Influenza AH1, 2009 Not Detected (NotDetected); Influenza AH1, PCR Not Detected (NotDetected); Influenza B, PCR Not Detected (NotDetected); Mycoplasma Pneumoniae, PCR Not Detected (NotDetected); Parainfluenza 1, PCR Not Detected (NotDetected); Parainfluenza 2, PCR Not Detected (NotDetected); Parainfluenza 3, PCR Not Detected (NotDetected); Parainfluenza 4, PCR Not Detected (NotDetected); Respiratory Syncytial Virus Not Detected (NotDetected); Rhinovirus/Enterovirus Not Detected (NotDetected)
--- NOTE | 2024-09-23 12:46 | P.PN_ITS ---
Subjective *Date: 09/23/24 *Time: 12:51 Interval history: Patient A&O x 3 awake and alert in his room. He does report having chills and bodyaches that have recently started in the past few days consistent with alcohol withdrawal. He has actively been working on improving his p.o. intake. Patient seen in the office by myself early July for elevated liver enzymes. At that time he admitted to drinking 16 ounces of liquor daily and had been for at least 5 years. He reports that has been drinking alcohol since he was a teenager and got worse after snf. He reports self-medicating for untreated neuropathic pain that got out of control. Multiple CT scans and ultrasounds over the years have noted hepatomegaly with fatty liver disease but no specific signs of cirrhosis. FibroSure testing unable to be completed because of GGT over 3000 due to excessive alcohol consumption. Patient does not remember seeing me in the office. He denies ever being diagnosed with cirrhosis before. He does admit that he would probably end up drinking again if he went home but he has tried to stop drinking on multiple occasions and always relapsed. He reports being committed to complete elimination of alcohol and is looking forward to treatment through . He is on the waiting list for transfer. Current bilirubin 28.4 and patient is severely jaundiced. AST 802, ALT 571, alk phos 199. PT slightly elevated at 12.4, improved from 22.1 on arrival. He is receiving methylprednisolone and has received at least 5 days of acetylcysteine without improvement. MELD sodium score equals 24. Exam Data for Last 24 hours Vital signs and Labs for Last 24 Hours: Temp Pulse Resp BP Pulse Ox O2 Del Method O2 Flow Rate 98.1 F 101 H 18 119/58 L 98 Room Air 2 09/23/24 08:00 09/23/24 08:00 09/23/24 08:00 09/23/24 08:00 09/23/24 08:00 09/23/24 11:00 09/16/24 17:15 Laboratory Results - last 24 hr 09/15/24 15:12: Hemochromatosis DNA PCR Comment 09/23/24 05:59: WBC 24.8 H*, RBC 3.67 L, Hgb 13.3 L, Hct 40.1 L, MCV 109.3 H, MCH 36.2 H, MCHC 33.2, RDW 14.6, Plt Count 322, MPV 11.6 H, Neut % (Auto) 83.1 H , Lymph % (Auto) 2.5 L, [place] % (Auto) 7.5, Eos % (Auto) 0.0 L, Baso % (Auto) 0.7, Neut # (Auto) 20.6 H, Lymph # (Auto) 0.6 L, [place] # (Auto) 1.9 H, Eos # (Auto) 0.0, Baso # (Auto) 0.2, Total Counted 100, Neutrophils % (Manual) 83 H, Atypical Lymphs % 3.0, Monocytes % (Manual) 14 H, Platelet Estimate Normal, Macrocytosis 2+, Sodium 134 L, Potassium 4.1, Chloride 103, Carbon Dioxide 24, Anion Gap 11.1, BUN 22 H, Creatinine 1.20, Estimated Creat Clear 82, Estimated GFR 62, Est GFR ( Amer) 75, Glucose 90, Calcium 8.7, Phosphorus 2.6, Magnesium 1.9, Total Bilirubin 28.1 H*, AST 802 H*, ALT 571 H*, Alkaline Phosphatase 199 H, Total Protein 7.6, Albumin 3.8, Globulin 3.8 H, Albumin/Globulin Ratio 1.0 L 09/23/24 08:48: PT 12.4 H, INR 1.15 H I & O for Last 24 hours: Intake & Output 09/21/24 09/22/24 09/23/24 09/24/24 11:59 11:59 11:59 11:59 Intake Total 1620 1620 1560 Output Total 1 0 1 Balance 1619 1620 1559 Weight 90.26 kg 90.945 kg 87.952 kg Constitutional Constitutional: no acute distress *Routine HEENT Exam Eye: Present other (Positive icteric sclera) *Routine Respiratory Exam Respiratory: Present CTA bilaterally *Routine Cardiovascular Exam Cardiovascular: Present RRR *Routine Abdominal Exam Abdominal: Present soft and distended; Absent tenderness *Routine Skin Exam Skin: Present jaundice (Severe jaundice) Assessment and Plan *Assessment and plan (1) Alcohol withdrawal syndrome: Status: Acute Category: Medical Code(s): F10.939 - Alcohol use, unspecified with withdrawal, unspecified (2) Liver failure: Status: Acute Qualifiers: Liver failure chronicity: acute Hepatic coma status: without hepatic coma Qualified Code(s): K72.00 - Acute and subacute hepatic failure without coma Category: Medical Code(s): K72.90 - Hepatic failure, unspecified without coma (3) Asterixis: Status: Resolved Category: Medical Code(s): R27.8 - Other lack of coordination (4) Jaundice: Status: Acute Category: Medical Code(s): R17 - Unspecified jaundice (5) Chronic alcoholism: Status: Acute Category: Medical Code(s): F10.20 - Alcohol dependence, uncomplicated (6) Acute alcoholic hepatitis: Status: Acute Category: Medical Code(s): K70.10 - Alcoholic hepatitis without ascites Plan 1. Severe acute alcoholic hepatitis with profound jaundice/intrahepatic cholestasis. He is not clearly responding to methylprednisolone . Dr. Fountain discussed need for transfer to tertiary center for consideration of liver transplantation as rescue. Other potential treatments could be granulocyte colony-stimulating factor which may be available in a tertiary center such as the [facility]. He is currently on a waiting list for transfer to . He had requested to go home but understands that he is much more likely to return to alcohol consumption if he does. His mortality risk has been discussed with him on multiple occasions. He reports being committed to finding a way to stay alcohol free and moving forward at . Current MELD sodium score 24. Current bilirubin 28.4. He is currently on methylprednisolone and completed 5 days of acetylcysteine without improvement. We discussed continuing nutritional intake to build up his strength for future treatment.
--- NOTE | 2024-09-23 14:24 | P.PN_ITS ---
Subjective *Date: 09/23/24 *Time: 14:24 Interval history: Patient interactive on exam today. Alert and oriented x 4. Discussed his need for continued inpatient management. Hemodynamically stable. On room air. Ambulating independently. Awaiting transfer for evaluation for possible tra nsfer Medical Exam Vital signs and Labs for Last 24 Hours: Vital Signs Temp Pulse Resp BP Pulse Ox O2 Del Method 09/23/24 11:00 Room Air 09/23/24 09:00 Room Air 09/23/24 08:00 Room Air 09/23/24 08:00 98.1 F 101 H 18 119/58 L 98 Room Air 09/23/24 06:56 Room Air 09/23/24 05:00 Room Air 09/23/24 04:00 98 F 88 17 121/71 96 Room Air 09/23/24 03:00 Room Air 09/23/24 01:00 Room Air 09/23/24 00:00 98.4 F 85 17 116/61 95 Room Air 09/22/24 23:00 Room Air 09/22/24 21:00 Room Air 09/22/24 20:00 Room Air 09/22/24 19:53 98.0 F 87 18 126/45 L 94 L Room Air 09/22/24 16:17 Room Air 09/22/24 16:00 98.3 F 96 H 20 158/72 H 98 Room Air 09/22/24 14:58 Room Air Intake and Output 09/22/24 09/23/24 09/23/24 23:59 07:59 15:59 Intake Total 1979 240 / 1080 840 / 1080 Output Total 0 / 0 1 / 1 0 / 1 Balance 1979 239 / 1079 840 / 1079 Intake: Intake, Oral Amount 1979 240 / 1080 840 / 1080 Output: Output, Urine Amount 0 / 0 1 / 1 0 / 1 Other: Number of Unmeasured Voids 1 0 1 Weight 87.952 kg Patient Weight 09/23/24 23:59 Weight 87.952 kg Laboratory Results - last 24 hr 09/15/24 15:12: Hemochromatosis DNA PCR Comment 09/23/24 05:59: WBC 24.8 H*, RBC 3.67 L, Hgb 13.3 L, Hct 40.1 L, MCV 109.3 H, MCH 36.2 H, MCHC 33.2, RDW 14.6, Plt Count 322, MPV 11.6 H, Neut % (Auto) 83.1 H , Lymph % (Auto) 2.5 L, [place] % (Auto) 7.5, Eos % (Auto) 0.0 L, Baso % (Auto) 0.7, Neut # (Auto) 20.6 H, Lymph # (Auto) 0.6 L, [place] # (Auto) 1.9 H, Eos # (Auto) 0.0, Baso # (Auto) 0.2, Total Counted 100, Neutrophils % (Manual) 83 H, Atypical Lymphs % 3.0, Monocytes % (Manual) 14 H, Platelet Estimate Normal, Macrocytosis 2+, Sodium 134 L, Potassium 4.1, Chloride 103, Carbon Dioxide 24, Anion Gap 11.1, BUN 22 H, Creatinine 1.20, Estimated Creat Clear 82, Estimated GFR 62, Est GFR ( Amer) 75, Glucose 90, Calcium 8.7, Phosphorus 2.6, Magnesium 1.9, Total Bilirubin 28.1 H*, AST 802 H*, ALT 571 H*, Alkaline Phosphatase 199 H, Total Protein 7.6, Albumin 3.8, Globulin 3.8 H, Albumin/Globulin Ratio 1.0 L 09/23/24 08:48: PT 12.4 H, INR 1.15 H I & O for Labs for Last 24 Hours: Intake & Output 09/20/24 09/21/24 09/22/24 09/23/24 23:59 23:59 23:59 23:59 Intake Total 1639 / 1820 1739 1080 / 1080 Output Total 0 / 0 0 / 0 Balance 1639 / 0 1738 1079 / 1079 Weight 90.265 kg 90.26 kg 90.945 kg 87.952 kg Constitutional: Present no acute distress, average body habitus, chronically ill appearing and cooperative Head: Present atraumatic and normocephalic ENT: Present normal exam Comment:: Scleral icterus Respiratory: Present normal respiratory effort; Absent rhonchi, wheezes or crackles Cardiac: Present Reg Rate and Rhythm GI: Present soft, tenderness (Mild diffuse right hemiabdomen) and normal bowel sounds; Absent distention Extremities: Present normal inspection and full ROM Skin: Present intact and jaundice; Absent erythema Neuro: Present Grossly Intact, alert, awake, oriented x 3 and moves all extremities Assessment and Plan *Assessment and plan (1) Acute alcoholic hepatitis: Status: Acute Category: Medical Code(s): K70.10 - Alcoholic hepatitis without ascites (2) Liver failure: Status: Acute Qualifiers: Liver failure chronicity: acute Hepatic coma status: without hepatic coma Qualified Code(s): K72.00 - Acute and subacute hepatic failure without coma Category: Medical Code(s): K72.90 - Hepatic failure, unspecified without coma (3) Jaundice: Status: Acute Category: Medical Code(s): R17 - Unspecified jaundice (4) Asterixis: Status: Resolved Category: Medical Code(s): R27.8 - Other lack of coordination (5) Alcohol intoxication: Status: Acute Qualifiers: Complication of substance-induced condition: uncomplicated Qualified Code(s): F10.920 - Alcohol use, unspecified with intoxication, uncomplicated Category: Medical Code(s): F10.929 - Alcohol use, unspecified with intoxication, unspecified (6) Transaminitis: Status: Acute Category: Medical Code(s): R74.01 - Elevation of levels of liver transaminase levels (7) Primary hypertension: Status: Chronic Category: Medical Code(s): I10 - Essential (primary) hypertension (8) COPD (chronic obstructive pulmonary disease): Status: Chronic Qualifiers: COPD type: unspecified COPD Qualified Code(s): J44.9 - Chronic obstructive pulmonary disease, unspecified Category: Medical Code(s): J44.9 - Chronic obstructive pulmonary disease, unspecified (9) GERD (gastroesophageal reflux disease): Status: Chronic Qualifiers: Esophagitis presence: esophagitis presence not specified Qualified Code(s): K21.9 - Gastro-esophageal reflux disease without esophagitis Category: Medical Code(s): K21.9 - Gastro-esophageal reflux disease without esophagitis (10) HLD (hyperlipidemia): Status: Chronic Qualifiers: Hyperlipidemia type: mixed hyperlipidemia Qualified Code(s): E78.2 - Mixed hyperlipidemia Category: Medical Code(s): E78.5 - Hyperlipidemia, unspecified (11) Coronary artery disease: Status: Chronic Qualifiers: Coronary Disease-Associated Artery/Lesion type: [place] artery [place] vs. transplanted heart: [place] heart Associated angina: without angina Qualified Code(s): I25.10 - Atherosclerotic heart disease of [place] coronary artery without angina pectoris Category: Medical Code(s): I25.10 - Atherosclerotic heart disease of [place] coronary artery without angina pectoris (12) Coagulopathy: Status: Acute Category: Medical Code(s): D68.9 - Coagulation defect, unspecified Plan Pritesh Aguilar is a 59-year-old male who presented acutely intoxicated with acute liver failure and alcohol withdrawal. Discussed case with ER physician and GI prior to admission. Patient is critically ill. High risk for decompensation. Will score calculated today, 0.78. Poor responder to steroids. Will continue however at this time given severity of current condition. Gastroenterology continuing to assist with care. Continues to require inpatient management. Asked today if he had ever been told he had cirrhosis, he states he does not recall ever being told he had cirrhosis. Does recall being told multiple times to stop drinking however. Problems addressed as follows: #Acute alcoholic hepatitis (severe) #Acute liver failure #Painless jaundice #Alcohol intoxication, resolved #High anion gap metabolic acidosis, resolved #Hepatic metabolic encephalopathy, resolved #Severe protein calorie malnutrition #Leukocytosis - Maddrey's discriminant function of 62.4, MELD score 27. Confer poor prognosis and 20% 3-month mortality. CT shows severely enlarged liver, no appreciable varices however. No ascites; MELD score imp. to 24 on 09/23/2024 - Initial alcohol level elevated 272. No signs of withdrawal for over 72 hours -Liver labs remain abnormal with bilirubin 28, AST 802, ALT 571, alkaline phosphatase 199. -White count remains elevated at 24.8. Patient complains of sniffles today. Comprehensive respiratory panel obtained ? RUQ ultrasound 09/15/2024 revealed hepatomegaly, cholelithiasis with no CBD dilation. ? Discussed with GI, recommend continuing steroids daily with methylprednisolone 40 mg p.o. recommend attempting transfer for transplant evaluation. [facility] contacted. Patient on wait list for [facility] ? Continue Compazine as needed for nausea/vomiting. - Continue rifaximin 550 mg 3 times daily for hepatic encephalopathy, asterixis, hyperammonia. - Follow-up morning CBC, CMP, magnesium, INR/PT, phosphorus ordered daily - Nutrition consulted to assist with dietary recommendations and risk for malnutrition. Recommend boost/protein supplement with trays - remote sensing specialist consulted. ? Follow-up hemochromatosis PCR, pending. Iron studies do show some iron overload, iron saturation close to 90%. - INR 1.15. No signs of active bleeding #Alcohol withdrawal, resolved #Wernicke's encephalopathy #Fall -No further signs of alcohol withdrawal - Multivitamin with supplementation including folate and thiamine daily. ? Patient did have a fall during hospitalization, hit his forehead slightly on the toilet. Small bruise. CT head with no acute findings. Patient has had no focal neurological deficits, alert and oriented. ? Highly suspect Wernicke's encephalopathy, had horizontal nystagmus, confabulation/memory loss, and ataxia. Significantly improved with IV thiamine. ? Continue gabapentin 300 mg twice daily. Patient does not want higher doses as it makes him depressed ? oral thiamine 100 mg daily - Seizure precautions ? PT/OT following, recommending SNF at this time. Case management assisting with placement. # Suspected BPH ? tamsulosin 0.8 mg daily. #Peripheral neuropathy #Suspected restless leg syndrome ? Nighttime restless legs, numbness/tingling significantly improved since starting Requip. However, continues to have daytime symptoms. #Hypokalemia #Hypomagnesemia #Hypophosphatemia ?Potassium 3.5, magnesium 1.8, BUN 20, creatinine 1 #Low folic acid ? Folic acid 2.41. Continue daily folic acid 1 mg. ? B12 normal 747 Hypertension: Diltiazem 180 mg extended release twice daily COPD: On room air. Continue DuoNebs every 6 hours prn. Goal sats greater 90%. In no acute exacerbation at this time GERD: Continue pantoprazole as formulary conversion 40 mg twice daily Full code Anticoagulation contraindicated given coagulopathy and INR of 1.18 Regular diet with protein supplementation
[2024-09-23 15:09] LABS: Influenza AH3,PCR Detected (NotDetected)
[2024-09-23 16:00] VITALS: BP 134/74; PULSE 98; RESP 18; TEMP 36.8; O2SAT 96
--- NOTE | 2024-09-23 18:29 | PC.NURSE ---
aox4, has been up ambulating in room for most of shift. tested + for FLU a. tolerating diet well. no c/o this shift. still no bed available at .
[2024-09-23 20:00] VITALS: BP 124/73; PULSE 89; RESP 16; TEMP 36.8; O2SAT 95
[2024-09-23] MEDS: OSELTAMIVIR 75MG CAPSULE 75 MG PO (20:28)
[2024-09-23] MEDS: TAMSULOSIN 0.4MG CAPSULE 0.8 MG PO (20:28)
[2024-09-24] VITALS: BP 119/63; PULSE 86; RESP 16; TEMP 37.1; O2SAT 95
[2024-09-24] MEDS: OXYCODONE 5MG IMMEDIATE RELEASE TABLET 5 MG PO ×3 (02:30→14:49)
[2024-09-24 04:00] VITALS: BP 118/68; PULSE 84; RESP 16; TEMP 36.6; O2SAT 93; BMI 26.6
[2024-09-24 06:57] LABS: Basophils # 0.1 K/mm3 (0-0.2); Basophils % 0.5 % (0.1-2.0); Eosinophils % 0.1 % (0.1-12.0); Hematocrit 41.4 % (42.0-52.0); Hemoglobin 14.1 g/dL (14.1-18.0); Lymphocytes # 0.7 K/mm3 (0.7-4.5); Lymphocytes % 2.6 % (10-50); Mean Corpuscular HGB Conc 34.1 g/dL (31.8-35.4); Mean Corpuscular Hemoglobin 37.1 pg (27.0-31.2); Mean Corpuscular Volume 108.9 fl (80-94); Mean Platelet Volume 11.5 fl (7.4-10.4); Monocytes # 2.1 K/mm3 (0.1-1.0); Monocytes % 7.8 % (1.7-9.3); Neutrophils # 22.1 K/mm3 (1.8-7.8); Neutrophils % 82.7 % (37.0-80.0); Platelet Count 371 K/mm3 (142-424); Red Cell Distribution Width 14.4 % (11.5-17.5); White Blood Count 26.7 K/mm3 (4.8-10.8)
[2024-09-24 07:06] LABS: INR 1.13 (0.9-1.1); Prothrombin Time 12.3 seconds (9.2-12.1)
[2024-09-24 07:14] LABS: Albumin Level 3.9 g/dl (3.5-5.0); Chloride 101 mmol/L (98-107); Potassium 3.4 mmoL/L (3.5-5.1); Sodium 133 mmol/L (136-145)
[2024-09-24 07:17] LABS: Alanine Aminotransferase 742 U/L (12-78); Alkaline Phosphatase 206 U/L (38-126); Anion Gap 12.4 mEq/L (5-15); Blood Urea Nitrogen 21 mg/dl (9-20); Calcium 8.5 mg/dl (8.4-10.2); Carbon Dioxide 23 mmol/L (22.0-30.0); Creatinine Clearance Estimated 84 mL/min (50-200); Estimated Glomerular Filt Rate 62 ml/min (>60); GFR (African American) 75 ML/MIN (>60); Globulin 3.9 g/dL (1.3-3.2); Glucose 81 mg/dl (74-100); Total Protein,Serum 7.8 g/dl (6.3-8.2)
[2024-09-24 07:21] LABS: Phosphorous 3.1 mg/dl (2.5-4.5)
[2024-09-24 07:25] LABS: MANUAL DIFFERENTIAL MANUAL DIFFERENTIAL (MANUAL DIFF)
[2024-09-24 08:00] VITALS: BP 117/58; PULSE 105; RESP 20; TEMP 36.6; O2SAT 95
[2024-09-24 08:10] LABS: Lymphocytes % 3 % (10-50); Macrocytosis 2+; Monocytes % 4 % (2-9); Neutrophils % 91 % (42-76); Platelet Estimate Normal; Total Cells Counted 100
[2024-09-24] MEDS: GABAPENTIN 300MG CAPSULE 300 MG PO (08:22)
[2024-09-24] MEDS: PANTOPRAZOLE 40MG TABLET 40 MG PO (08:22)
[2024-09-24] MEDS: dilTIAZem HCL 180MG CAP.ER.24H 180 MG PO (08:22)
[2024-09-24] MEDS: guaiFENesin 600 MG TAB.ER.12H PO (08:22)
[2024-09-24] MEDS: OSELTAMIVIR 75MG CAPSULE 75 MG PO (08:22)
[2024-09-24] MEDS: POTASSIUM CHLORIDE 20MEQ TAB 40 MEQ PO ×2 (08:23→12:51)
[2024-09-24] MEDS: FOLIC ACID 1MG TABLET 1 MG PO (08:23)
[2024-09-24] MEDS: THIAMINE 100MG TABLET 100 MG PO (08:23)
[2024-09-24 09:02] LABS: Aspartate Amino Transferase 1056 U/L (17-59); Bilirubin,Total 29.5 mg/dl (0.2-1.3)
[2024-09-24 12:00] VITALS: BP 125/71; PULSE 98; RESP 20; TEMP 36.8; O2SAT 94
--- NOTE | 2024-09-24 17:23 | EXP.ACUTE.PN ---
Subjective *Date: 09/24/24 *Time: 17:23 Interval history: Patient quite fatigued today. Remains afebrile. Stable on room air. No acute events overnight. Medical Exam Vital signs and Labs for Last 24 Hours: Vital Signs Temp Pulse Resp BP Pulse Ox O2 Del Method 09/24/24 14:45 Room Air 09/24/24 13:00 Room Air 09/24/24 12:00 98.2 F 98 H 20 125/71 94 L Room Air 09/24/24 11:00 Room Air 09/24/24 09:00 Room Air 09/24/24 08:00 Room Air 09/24/24 08:00 98 F 105 H 20 117/58 L 95 Room Air 09/24/24 06:47 Room Air 09/24/24 05:00 Room Air 09/24/24 04:00 97.9 F 84 16 118/68 93 L Room Air 09/24/24 03:00 Room Air 09/24/24 01:00 Room Air 09/24/24 00:00 98.7 F 86 16 119/63 95 Room Air 09/23/24 23:00 Room Air 09/23/24 21:00 Room Air 09/23/24 20:00 Room Air 09/23/24 20:00 98.3 F 89 16 124/73 95 Room Air Intake and Output 09/24/24 09/24/24 09/24/24 07:59 15:59 23:59 Intake Total 240 / 680 440 / 680 Output Total 0 / 0 0 / 0 Balance 240 / 680 440 / 680 Intake: Intake, Oral Amount 240 / 680 440 / 680 Output: Output, Urine Amount 0 / 0 0 / 0 Other: Number of Unmeasured Voids 1 1 Weight 89.312 kg Patient Weight 09/24/24 23:59 Weight 89.312 kg Laboratory Results - last 24 hr 09/24/24 05:59: WBC 26.7 H*, RBC 3.80 L, Hgb 14.1, Hct 41.4 L, MCV 108.9 H, MCH 37.1 H, MCHC 34.1, RDW 14.4, Plt Count 371, MPV 11.5 H, Neut % (Auto) 82.7 H, Lymph % (Auto) 2.6 L, [place] % (Auto) 7.8, Eos % (Auto) 0.1, Baso % (Auto) 0.5, Neut # (Auto) 22.1 H, Lymph # (Auto) 0.7, [place] # (Auto) 2.1 H, Eos # (Auto) 0.0, Baso # (Auto) 0.1, Total Counted 100, Neutrophils % (Manual) 91 H, Lymphocytes % (Manual) 3 L, Atypical Lymphs % 2.0, Monocytes % (Manual) 4, Platelet Estimate Normal, Macrocytosis 2+, PT 12.3 H, INR 1.13 H, Sodium 133 L, Potassium 3.4 L, Chloride 101, Carbon Dioxide 23, Anion Gap 12.4, BUN 21 H, Creatinine 1.20, Estimated Creat Clear 84, Estimated GFR 62, Est GFR ( Amer) 75, Glucose 81, Calcium 8.5, Phosphorus 3.1, Magnesium 2.0, Total Bilirubin 29.5 H*, AST 1056 H* D, ALT 742 H*, Alkaline Phosphatase 206 H, Total Protein 7.8, Albumin 3.9, Globulin 3.9 H, Albumin/Globulin Ratio 1.0 L I & O for Labs for Last 24 Hours: Intake & Output 09/21/24 09/22/24 09/23/24 09/24/24 23:59 23:59 23:59 23:59 Intake Total 1739 1560 / 1800 680 / 680 Output Total 0 / 0 / 0 / 0 Balance 1738 1559 / 1799 680 / 680 Weight 90.26 kg 90.945 kg 87.952 kg 89.312 kg Constitutional: Present mild distress, average body habitus, chronically ill appearing and cooperative Head: Present atraumatic and normocephalic ENT: Present normal exam Comment:: Scleral icterus Respiratory: Present normal respiratory effort; Absent rhonchi, wheezes or crackles Cardiac: Present Reg Rate and Rhythm GI: Present soft, tenderness (Mild diffuse right hemiabdomen) and normal bowel sounds; Absent distention Extremities: Present normal inspection and full ROM Skin: Present intact and jaundice; Absent erythema Neuro: Present Grossly Intact, alert, awake, oriented x 3 and moves all extremities Comment:: More fatigued today Assessment and Plan *Assessment and plan (1) Acute alcoholic hepatitis: Status: Acute Category: Medical Code(s): K70.10 - Alcoholic hepatitis without ascites (2) Influenza A: Status: Acute Category: Medical Code(s): J10.1 - Influenza due to other identified influenza virus with other respiratory manifestations (3) Liver failure: Status: Acute Qualifiers: Liver failure chronicity: acute Hepatic coma status: without hepatic coma Qualified Code(s): K72.00 - Acute and subacute hepatic failure without coma Category: Medical Code(s): K72.90 - Hepatic failure, unspecified without coma (4) Jaundice: Status: Acute Category: Medical Code(s): R17 - Unspecified jaundice (5) Asterixis: Status: Resolved Category: Medical Code(s): R27.8 - Other lack of coordination (6) Alcohol intoxication: Status: Acute Qualifiers: Complication of substance-induced condition: uncomplicated Qualified Code(s): F10.920 - Alcohol use, unspecified with intoxication, uncomplicated Category: Medical Code(s): F10.929 - Alcohol use, unspecified with intoxication, unspecified (7) Transaminitis: Status: Acute Category: Medical Code(s): R74.01 - Elevation of levels of liver transaminase levels (8) Primary hypertension: Status: Chronic Category: Medical Code(s): I10 - Essential (primary) hypertension (9) COPD (chronic obstructive pulmonary disease): Status: Chronic Qualifiers: COPD type: unspecified COPD Qualified Code(s): J44.9 - Chronic obstructive pulmonary disease, unspecified Category: Medical Code(s): J44.9 - Chronic obstructive pulmonary disease, unspecified (10) GERD (gastroesophageal reflux disease): Status: Chronic Qualifiers: Esophagitis presence: esophagitis presence not specified Qualified Code(s): K21.9 - Gastro-esophageal reflux disease without esophagitis Category: Medical Code(s): K21.9 - Gastro-esophageal reflux disease without esophagitis (11) HLD (hyperlipidemia): Status: Chronic Qualifiers: Hyperlipidemia type: mixed hyperlipidemia Qualified Code(s): E78.2 - Mixed hyperlipidemia Category: Medical Code(s): E78.5 - Hyperlipidemia, unspecified (12) Coronary artery disease: Status: Chronic Qualifiers: Coronary Disease-Associated Artery/Lesion type: [place] artery [place] vs. transplanted heart: [place] heart Associated angina: without angina Qualified Code(s): I25.10 - Atherosclerotic heart disease of [place] coronary artery without angina pectoris Category: Medical Code(s): I25.10 - Atherosclerotic heart disease of [place] coronary artery without angina pectoris (13) Coagulopathy: Status: Acute Category: Medical Code(s): D68.9 - Coagulation defect, unspecified Plan Pritesh Aguilar is a 59-year-old male who presented acutely intoxicated with acute liver failure and alcohol withdrawal. Discussed case with ER physician and GI prior to admission. Patient is critically ill. High risk for decompensation. Will score calculated today, 0.78. Poor responder to steroids. Will continue however at this time given severity of current condition. Gastroenterology continuing to assist with care. Continues to require inpatient management. Patient has no recollection of being told he had cirrhosis before, just that he needed to stop drinking multiple times. Found to be flu positive on 09/23. Started on Tamiflu. Continues to require patient management. Problems addressed as follows: #Acute alcoholic hepatitis (severe) #Acute liver failure #Painless jaundice #Alcohol intoxication, resolved #High anion gap metabolic acidosis, resolved #Hepatic metabolic encephalopathy, resolved #Severe protein calorie malnutrition #Leukocytosis - Maddrey's discriminant function of 62.4, MELD score 27. Confer poor prognosis and 20% 3-month mortality. CT shows severely enlarged liver, no appreciable varices however. No ascites; MELD score imp. to 24 on 09/23/2024 - Initial alcohol level elevated 272. No signs of withdrawal for over 72 hours -Liver labs remain abnormal with bilirubin 29.5, AST 1056, ALT 742, alk phos 206. -White count remains elevated at 24.8. Patient complains of sniffles today. Comprehensive respiratory panel obtained ? RUQ ultrasound 09/15/2024 revealed hepatomegaly, cholelithiasis with no CBD dilation. ? Continue methylprednisolone 40 mg p.o. daily. Patient on wait list to go to [facility] for transplant evaluation ? Continue Compazine as needed for nausea/vomiting. - Continue rifaximin 550 mg 3 times daily for hepatic encephalopathy, asterixis, hyperammonia. - Follow-up morning CBC, CMP, magnesium, INR/PT, phosphorus ordered daily - Nutrition consulted to assist with dietary recommendations and risk for malnutrition. Recommend boost/protein supplement with trays - employment training specialist consulted, assisting with patient daily ? 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 As it is a recessive trait, he does not appear to have hemochromatosis at this time. - INR 1.13. No signs of active bleeding Influenza A: Initiated on Tamiflu 75 mg twice daily. Found to be positive on 09/23. Stable on room air. White count with slight bump today at 26.7. Suspect secondary to flu infection in conjunction with steroid use #Alcohol withdrawal, resolved #Wernicke's encephalopathy #Fall -No further signs of alcohol withdrawal - Multivitamin with supplementation including folate and thiamine daily. ? Continue gabapentin 300 mg twice daily. Patient does not want higher doses as it makes him depressed ? oral thiamine 100 mg daily - Seizure precautions ? PT/OT following, recommending SNF at this time. Case management assisting with placement. # Suspected BPH: tamsulosin 0.8 mg daily. #Peripheral neuropathy #Suspected restless leg syndrome ? Nighttime restless legs, numbness/tingling significantly improved since starting Requip. However, continues to have daytime symptoms. #Hypokalemia #Hypomagnesemia #Hypophosphatemia ?Potassium 3.4, magnesium 2.0, albumin 3.9. Creatinine 1.2, BUN 21 #Low folic acid ? Folic acid 2.41. Continue daily folic acid 1 mg. ? B12 normal 747 Hypertension: Diltiazem 180 mg extended release twice daily COPD: On room air. Continue DuoNebs every 6 hours prn. Goal sats greater 90%. In no acute exacerbation at this time GERD: Continue pantoprazole as formulary conversion 40 mg twice daily Full code Regular diet with protein supplementation Holding anticoagulation due to fall risk and coagulopathy in the setting of liver failure
--- NOTE | 2024-09-24 17:30 | EXP.DC.SUM ---
General Admission date:: 09/13/24 Discharge date: 09/24/24 HPI HPI HPI: Mr. Aguilar is a 59-year-old male who presented to the ER with abnormal liver enzymes. On arrival, patient is clearly jaundiced. Reports drinking a pint of alcohol a day. Initial labs concerning for hepatocellular injury pattern of lab abnormalities including impaired synthetic function with elevated INR of 2.17, AST of 700, jaundice of 23, and severely enlarged liver on imaging. GI was consulted and recommended admission to ICU and further management. Meld calculated at 27, Maddrey's calculated at 62. Medicine consulted for admission. Patient initiated on CIWA protocol with Ativan. High risk of decompensation. Patient denies any significant abdominal pain, nausea, vomiting, shortness of breath. Denies any blood in vomit or stool. Stools he states have been pale to white over the past few days. Poor p.o. intake. States he is lost muscle mass over the past few months. Denies fever. Reports increased fatigue over the past few weeks. Saw gastroenterology back in July and was initiated on workup for his liver dysfunction. Condition has only worsened. Hospital Course Hospital Course Hospital Course: Pritesh Aguilar is a 59-year-old male who presented acutely intoxicated with acute liver failure and alcohol withdrawal. Discussed case with ER physician and GI prior to admission. Patient is critically ill. High risk for decompensation. Admitted initially to the ICU and downgraded after patient remained stable and had resolution of withdrawal symptoms. After finding no response to steroids with persistently elevated bilirubin and liver enzymes, was consulted for transfer for transplant evaluation. On 09/23, patient began to have some chills and congestion. Found to be flu a positive. Has been graciously excepted by for further management and workup to evaluate for transplant candidacy. Patient hemodynamically stable. Problems addressed as follows: #Acute alcoholic hepatitis (severe) #Acute liver failure #Painless jaundice #Alcohol intoxication, resolved #High anion gap metabolic acidosis, resolved #Hepatic metabolic encephalopathy, resolved #Severe protein calorie malnutrition #Leukocytosis - Maddrey's discriminant function of 62.4, MELD score 27 on admission. Confer poor prognosis and 20% 3-month mortality. CT shows severely enlarged liver, no appreciable varices however. No ascites. MELD score gradually improved to 24 x 09/23/24 however no significant improvement clinically. Initial alcohol level of 272. Had withdrawal symptoms for the first 72 to 96 hours. Withdrawal symptoms have resolved and he has had no withdrawal symptoms for at least 5 days. Liver labs have remained grossly abnormal with most recent labs on 09/24 of bilirubin 29.5, AST 1056, ALT 742, alk phos 206. Pattern consistent with hepatocellular dysfunction. Does have synthetic function however as his INR remains stable at 1.13, albumin 3.9. Was initiated on NAC 6 g daily for 5 days and methylprednisolone orally 40 mg daily. After 7 days, patient's Lille score was 0.7 conferring that he is a nonresponder. He was at this time decision was made to reach out to for evaluation for transplant. Discussion with patient about his history of alcoholism and cirrhosis. He does not recall per discussion being told he has cirrhosis but he does recall numerous occasions in which he was told he needed to stop drinking. 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 Appears to recognize the gravity of his decisions with alcohol use. Has been tearful multiple times with recognition of the harm he has done to himself. Continued on methylprednisolone 40 mg orally daily. Of note right upper quadrant ultrasound on 09/15 revealed hepatomegaly, cholelithiasis, no common bile duct dilation. No portal thromboses. - Nutrition consulted to assist with dietary recommendations and risk for malnutrition. Recommend boost/protein supplement with trays. 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 As it is a recessive trait, he does not appear to have hemochromatosis at this time. INR 1.13. No signs of active bleeding Influenza A: Initiated on Tamiflu 75 mg twice daily. Found to be positive on 09/23. Stable on room air. White count with slight bump today at 26.7. Suspect secondary to flu infection in conjunction with steroid use #Alcohol withdrawal, resolved #Wernicke's encephalopathy #Fall -No signs of alcohol withdrawal in over 5 days. Continuing multivitamin with supplementation including folate and thiamine daily. No seizures during admission. PT and OT were following patient working with them daily. Patient did have a fall during his admission due to being unstable while he was trying to walk to the bathroom without calling out for staff. No trauma sustained. # Suspected BPH: tamsulosin 0.8 mg daily. #Peripheral neuropathy #Suspected restless leg syndrome ? Nighttime restless legs, numbness/tingling significantly improved since starting Requip. However, continues to have daytime symptoms. #Hypokalemia #Hypomagnesemia #Hypophosphatemia ?Potassium 3.4, magnesium 2.0, albumin 3.9. Creatinine 1.2, BUN 21 on day of transfer. #Low folic acid ? Folic acid 2.41. Continue daily folic acid 1 mg. B12 normal 747 Hypertension: Diltiazem 180 mg extended release twice daily COPD: On room air. Continue DuoNebs every 6 hours prn. Goal sats greater 90%. In no acute exacerbation at this time GERD: Continue pantoprazole as formulary conversion 40 mg twice daily Holding anticoagulation due to fall risk and coagulopathy in the setting of liver failure Total time spent on discharge 32 minutes in counseling, documentation, chart review, and direct care with patient. Exam Data for Last 24 hours Vital signs and Labs for Last 24 Hours: Temp Pulse Resp BP Pulse Ox O2 Del Method O2 Flow Rate 98.2 F 98 H 20 125/71 94 L Room Air 2 09/24/24 12:00 09/24/24 12:00 09/24/24 12:00 09/24/24 12:00 09/24/24 12:00 09/24/24 14:45 09/16/24 17:15 Laboratory Results - last 24 hr 09/24/24 05:59: WBC 26.7 H*, RBC 3.80 L, Hgb 14.1, Hct 41.4 L, MCV 108.9 H, MCH 37.1 H, MCHC 34.1, RDW 14.4, Plt Count 371, MPV 11.5 H, Neut % (Auto) 82.7 H, Lymph % (Auto) 2.6 L, [place] % (Auto) 7.8, Eos % (Auto) 0.1, Baso % (Auto) 0.5, Neut # (Auto) 22.1 H, Lymph # (Auto) 0.7, [place] # (Auto) 2.1 H, Eos # (Auto) 0.0, Baso # (Auto) 0.1, Total Counted 100, Neutrophils % (Manual) 91 H, Lymphocytes % (Manual) 3 L, Atypical Lymphs % 2.0, Monocytes % (Manual) 4, Platelet Estimate Normal, Macrocytosis 2+, PT 12.3 H, INR 1.13 H, Sodium 133 L, Potassium 3.4 L, Chloride 101, Carbon Dioxide 23, Anion Gap 12.4, BUN 21 H, Creatinine 1.20, Estimated Creat Clear 84, Estimated GFR 62, Est GFR ( Amer) 75, Glucose 81, Calcium 8.5, Phosphorus 3.1, Magnesium 2.0, Total Bilirubin 29.5 H*, AST 1056 H* D, ALT 742 H*, Alkaline Phosphatase 206 H, Total Protein 7.8, Albumin 3.9, Globulin 3.9 H, Albumin/Globulin Ratio 1.0 L I & O for Last 24 hours: Intake & Output 09/21/24 09/22/24 09/23/24 09/24/24 23:59 23:59 23:59 23:59 Intake Total 1739 1560 / 1800 680 / 680 Output Total 0 / 0 1 / 0 / 0 Balance 1738 / 2038 1559 / 1799 680 / 680 Weight 90.26 kg 90.945 kg 87.952 kg 89.312 kg Constitutional Constitutional: mild distress, average body habitus, chronically ill appearing, disheveled and cooperative *Routine HEENT Exam Head: Present normocephalic Eye: Present EOMI and PERRL ENT: Present mucous membranes moist Comments: Scleral icterus, will line on forehead differentiates between will to jaundice and bright yellow forehead. *Routine Neck Exam Neck: Present supple; Absent lymphadenopathy *Routine Respiratory Exam Respiratory: Present prolonged expiratory phase; Absent rhonchi, wheezes or crackles *Routine Cardiovascular Exam Cardiovascular: Present RRR *Routine Abdominal Exam Abdominal: Present soft and normoactive bowel sounds; Absent tenderness or distended Comments: Enlarged liver border extending down almost to ASIS *Routine Rectal Exam Patient deferred: visual exam *Routine Exam Patient deferred: penile exam *Routine Extremities Exam Extremities: Absent cyanosis, clubbing or edema *Routine Skin Exam Skin: Present intact, warm and jaundice; Absent petechiae or rash *Routine Neurological Exam Neurological: Present alert, oriented X3 and moving all extremities; Absent altered mental status Results Data Completed and Pending Labs on day of discharge: Labs from last 24 hours 09/24/24 05:59 WBC 26.7 H* RBC 3.80 L Hgb 14.1 Hct 41.4 L MCV 108.9 H MCH 37.1 H MCHC 34.1 RDW 14.4 Plt Count 371 MPV 11.5 H Neut % (Auto) 82.7 H Lymph % (Auto) 2.6 L [place]ws[place] % (Auto) 7.8 Eos % (Auto) 0.1 Baso % (Auto) 0.5 Neut # (Auto) 22.1 H Lymph # (Auto) 0.7 [place] # (Auto) 2.1 H Eos # (Auto) 0.0 Baso # (Auto) 0.1 Total Counted 100 Neutrophils % (Manual) 91 H Lymphocytes % (Manual) 3 L Atypical Lymphs % 2.0 Monocytes % (Manual) 4 Platelet Estimate Normal Macrocytosis 2+ PT 12.3 H INR 1.13 H Sodium 133 L Potassium 3.4 L Chloride 101 Carbon Dioxide 23 Anion Gap 12.4 BUN 21 H Creatinine 1.20 Estimated Creat Clear 84 Estimated GFR 62 Est GFR ( Amer) 75 Glucose 81 Calcium 8.5 Phosphorus 3.1 Magnesium 2.0 Total Bilirubin 29.5 H* AST 1056 H* D ALT 742 H* Alkaline Phosphatase 206 H Total Protein 7.8 Albumin 3.9 Globulin 3.9 H Albumin/Globulin Ratio 1.0 L DS: Diagnosis Discharge Diagnosis (1) Acute alcoholic hepatitis: Status: Acute Code(s): K70.10 - Alcoholic hepatitis without ascites (2) Influenza A: Status: Acute Code(s): J10.1 - Influenza due to other identified influenza virus with other respiratory manifestations (3) Liver failure: Status: Acute Code(s): K72.90 - Hepatic failure, unspecified without coma Qualifiers: Hepatic coma status: without hepatic coma Liver failure chronicity: acute Qualified Code(s): K72.00 - Acute and subacute hepatic failure without coma (4) Jaundice: Status: Acute Code(s): R17 - Unspecified jaundice (5) Asterixis: Status: Resolved Code(s): R27.8 - Other lack of coordination (6) Alcohol intoxication: Status: Acute Code(s): F10.929 - Alcohol use, unspecified with intoxication, unspecified Qualifiers: Complication of substance-induced condition: uncomplicated Qualified Code(s): F10.920 - Alcohol use, unspecified with intoxication, uncomplicated (7) Transaminitis: Status: Acute Code(s): R74.01 - Elevation of levels of liver transaminase levels (8) Primary hypertension: Status: Chronic Code(s): I10 - Essential (primary) hypertension (9) COPD (chronic obstructive pulmonary disease): Status: Chronic Code(s): J44.9 - Chronic obstructive pulmonary disease, unspecified Qualifiers: COPD type: unspecified COPD Qualified Code(s): J44.9 - Chronic obstructive pulmonary disease, unspecified (10) GERD (gastroesophageal reflux disease): Status: Chronic Code(s): K21.9 - Gastro-esophageal reflux disease without esophagitis Qualifiers: Esophagitis presence: esophagitis presence not specified Qualified Code(s): K21.9 - Gastro-esophageal reflux disease without esophagitis (11) HLD (hyperlipidemia): Status: Chronic Code(s): E78.5 - Hyperlipidemia, unspecified Qualifiers: Hyperlipidemia type: mixed hyperlipidemia Qualified Code(s): E78.2 - Mixed hyperlipidemia (12) Coronary artery disease: Status: Chronic Code(s): I25.10 - Atherosclerotic heart disease of [place] coronary artery without angina pectoris Qualifiers: Associated angina: without angina Coronary Disease-Associated Artery/Lesion type: [place] artery [place] vs. transplanted heart: [place] heart Qualified Code(s): I25.10 - Atherosclerotic heart disease of [place] coronary artery without angina pectoris (13) Coagulopathy: Status: Acute Code(s): D68.9 - Coagulation defect, unspecified Meds Home Medications and Allergies Home Medications ?Medication ?Instructions ?Recorded ?Confirmed ?Type omeprazole 40 mg capsule,delayed 40 mg PO BID 03/25/22 09/13/24 History release diltiazem HCl 180 mg 180 mg PO BID #30 caps 05/25/24 09/13/24 Rx capsule,extended release 24 hr albuterol sulfate 90 mcg/actuation 2 puff inhalation QID PRN asthma 07/06/24 09/13/24 History aerosol inhaler potassium chloride 20 mEq 20 meq PO BID 09/13/24 09/13/24 History tablet,extended release folic acid 1 mg tablet 1 mg PO DAILY #0 tabs 09/24/24 Rx gabapentin 300 mg capsule 300 mg PO BID #0 caps 09/24/24 Rx guaifenesin 600 mg tablet, 600 mg PO BID #0 tabs 09/24/24 Rx extended release 12 hr (Mucinex) ipratropium 0.5 mg-albuterol 3 mg 3 ml inhalation Q6HP PRN Shortness 09/24/24 Rx (2.5 mg base)/3 mL nebulization Of Breath #0 mL soln methylprednisolone 4 mg tablet 40 mg (10 x 4 mg) PO DAILY #0 tabs 09/24/24 Rx multivitamin with folic acid 400 1 tab PO 1700 #0 tabs 09/24/24 Rx mcg tablet (Tab-A-Saranya) oseltamivir 75 mg capsule (Tamiflu) 75 mg PO BID #0 caps 09/24/24 Rx pantoprazole 40 mg tablet,delayed 40 mg PO BID #0 tabs 09/24/24 Rx release tamsulosin 0.4 mg capsule 0.8 mg (2 x 0.4 mg) PO HS #0 caps 09/24/24 Rx thiamine mononitrate (vit B1) 100 100 mg PO DAILY #0 tabs 09/24/24 Rx mg tablet New Prescriptions to Start Prescriptions: Allergies Allergy/AdvReac Type Severity Reaction Status Date / Time atorvastatin AdvReac Severe Unknown Verified 09/13/24 13:53 allergy reaction isosorbide AdvReac Mild Headache Verified 09/08/24 10:54 Discharge Plan Disposition Patient Disposition: Xfer Short-Term Hosp Condition: Fair Discharge Order Discharge Orders: Discharge Order (Routine); Ordered 09/24/24 Ordered By: Galo Hein Follow up Plan Prescriptions/Medication Reconciliation: New gabapentin 300 mg Capsule 300 mg PO BID Qty: 0 0RF folic acid 1 mg Tablet 1 mg PO DAILY Qty: 0 0RF guaifenesin [Mucinex] 600 mg Tablet Extended Release 12hr 600 mg PO BID Qty: 0 0RF methylprednisolone 4 mg Tablet 40 mg PO DAILY Qty: 0 0RF multivitamin with folic acid [Tab-A-Saranya] 400 mcg Tablet 1 tab PO 1700 Qty: 0 0RF ipratropium-albuterol 0.5 mg-3 mg(2.5 mg base)/3 mL Solution For Nebulization 3 ml inhalation Q6HP PRN (Reason: Shortness Of Breath) Qty: 0 0RF pantoprazole 40 mg Tablet,Delayed Release (Dr/Ec) 40 mg PO BID Qty: 0 0RF oseltamivir [Tamiflu] 75 mg Capsule 75 mg PO BID Qty: 0 0RF tamsulosin 0.4 mg Capsule 0.8 mg PO HS Qty: 0 0RF thiamine mononitrate (vit B1) 100 mg Tablet 100 mg PO DAILY Qty: 0 0RF Continued albuterol sulfate 90 mcg/actuation HFA aerosol inhaler 2 puff inhalation QID PRN (Reason: asthma) Patient Comments: TAKE 2 PUFFS BY MOUTH 4 TIMES A DAY NEEDED diltiazem HCl 180 mg capsule,extended release 24hr 180 mg PO BID Qty: 30 6RF omeprazole 40 MG capsule,delayed release(DR/EC) 40 mg PO BID potassium chloride 20 mEq tablet extended release 20 meq PO BID Patient Comments: TAKE 1 TABLET BY MOUTH TWICE A DAY FOR SUPPLEMENT FOR 90 DAYS Discontinued testosterone 30 mg/actuation (1.5 mL) solution in metered pump w/valdez 2 pump topical DAILY clopidogrel 75 mg tablet 75 mg PO DAILY Problem Reconciliation Problems Reviewed?: Yes Patient Discharge Instructions ACTIVITY: Continue current activity DIET: continue same diet Patient Instructions: Alcoholic Hepatitis (Alternative Therapy), DI for Drug or Alcohol Withdrawal, DI for Acute Liver Failure, Catheter-Associated Urinary Tract Infection, NCM High-Calorie High-Protein Diet, WM High Calorie High Protein Diet Recipes, Tips for Adding Protein - Diet Print Language: Welsh Providers Primary Care Provider: Salvador Alvarez Admit Provider: Galo Hein Attending Provider: Galo Hein
== END 2024-09-24 18:16 | disposition short-term general hospital (02) | DRG 432 ==
LOC: ER 15:59 → 2ND 16:22 → ICU 09-14 05:45 → 2ND 09-14 12:58 → ICU 09-14 12:58 → 2ND 09-16 19:39
PROVIDERS: Internal Medicine Gastroenterology; Student in an Organized Health Care Education/Training Program; Admitting Provider Internal Medicine Adolescent Medicine; Emergency Provider Student in an Organized Health Care Education/Training Program; PCP Family Medicine; Visit Provider Internal Medicine Adolescent Medicine
DX: K70.10 Alcoholic hepatitis without ascites (principal); E43 Unspecified severe protein-calorie malnutrition; K72.00 Acute and subacute hepatic failure without coma; E87.21 Acute metabolic acidosis; F10.239 Alcohol dependence with withdrawal, unspecified; D68.9 Coagulation defect, unspecified; E51.2 Wernicke's encephalopathy; F10.229 Alcohol dependence with intoxication, unspecified; K76.82 Hepatic encephalopathy; I10 Essential (primary) hypertension; J44.9 Chronic obstructive pulmonary disease, unspecified; I25.10 Atherosclerotic heart disease of native coronary artery without angina pectoris; J10.1 Influenza due to other identified influenza virus with other respiratory manifestations; Y90.8 Blood alcohol level of 240 mg/100 ml or more; Z79.899 Other long term (current) drug therapy; Z68.26 Body mass index [BMI] 26.0-26.9, adult; R33.8 Other retention of urine; E87.6 Hypokalemia; E83.42 Hypomagnesemia; E83.39 Other disorders of phosphorus metabolism; G62.9 Polyneuropathy, unspecified; G25.81 Restless legs syndrome; R27.8 Other lack of coordination; W01.0XXA Fall on same level from slipping, tripping and stumbling without subsequent striking against object, initial encounter; Y92.230 Patient room in hospital as the place of occurrence of the external cause
CPT/HCPCS: 36415; 70450; 71045; 74177; 76705; 80053; 80074; 80320; 81001; 81256; 82140; 82248; 82607; 82728; 82746; 82977; 83010; 83036; 83540; 83550; 83605; 83615; 83690; 83735; 83880; 84100; 84145; 85007; 85025; 85610; 87040; 87081; 87086; 87633; 93306; 94640; 97110; 97116; 97163; 97166; 97530; 97535; 99291; J0780; J1940; J2060; J2405; J2543; J3411; J3430; J3475; J7120; J7620; Q9967

== ENCOUNTER 2024-10-18 09:28 | Emergency (ER) | payer BC, SELFPAY ==
[2024-10-18] VITALS (11 sets, daily range): BP systolic 88–125; BP diastolic 59–71; PULSE 77–106; RESP 12–22; TEMP 36.8–36.9; O2SAT 95–98; BMI 25.0
--- NOTE | 2024-10-18 09:43 | HMH.EDGENADL ---
Discharge Plan Disposition Patient Disposition: Home, Self-Care Condition: Good Prescriptions Prescriptions: No Action albuterol sulfate 90 mcg/actuation HFA aerosol inhaler 2 puff inhalation QID PRN (Reason: asthma) Patient Comments: TAKE 2 PUFFS BY MOUTH 4 TIMES A DAY NEEDED diltiazem HCl 180 mg capsule,extended release 24hr 180 mg PO BID Qty: 30 6RF omeprazole 40 MG capsule,delayed release(DR/EC) 40 mg PO BID potassium chloride 20 mEq tablet extended release 20 meq PO BID Patient Comments: TAKE 1 TABLET BY MOUTH TWICE A DAY FOR SUPPLEMENT FOR 90 DAYS gabapentin 300 mg Capsule 300 mg PO BID Qty: 0 0RF folic acid 1 mg Tablet 1 mg PO DAILY Qty: 0 0RF multivitamin with folic acid [Tab-A-Saranya] 400 mcg Tablet 1 tab PO 1700 Qty: 0 0RF ipratropium-albuterol 0.5 mg-3 mg(2.5 mg base)/3 mL Solution For Nebulization 3 ml inhalation Q6HP PRN (Reason: Shortness Of Breath) Qty: 0 0RF pantoprazole 40 mg Tablet,Delayed Release (Dr/Ec) 40 mg PO BID Qty: 0 0RF tamsulosin 0.4 mg Capsule 0.8 mg PO HS Qty: 0 0RF thiamine mononitrate (vit B1) 100 mg Tablet 100 mg PO DAILY Qty: 0 0RF Referrals Follow up/Referrals: Salvador Alvarez MD [Primary Care Provider] - See instructions Activity Restrictions/Add. Instructions Additional Instructions/Restrictions: You were evaluated in the emergency department today. Your labs are improving from your prior admission. Your imaging shows that your gallbladder wall is thickened, which is similar to prior study obtained at . He also have a lesion on your pancreas, which is not significantly changed from your prior CT scan at . Today, you were found to have low phosphorus, low potassium, low calcium, and low sodium. We gave you replacement, but it is very important that you follow-up closely with your primary care provider over the next 72 hours for reassessment of labs. Please also continue following up with gastroenterology/your liver specialists at . I would recommend calling them to let them know that you were seen here today and ask for any further recommendations. I also recommended asking for a sooner follow-up so that they can see you sooner rather than later for monitoring. Keep your legs up to help reduce swelling. Return to the emergency department for new or worsening symptoms Clinical Impressions Clinical Impression: Localized swelling of both lower legs, Fatigue, Hypocalcemia, Hyponatremia, Hypophosphatemia, Hypokalemia, Cirrhosis, Gallbladder anomaly, Lesion of pancreas Instructions Patient Instructions: DI for Cirrhosis, DI for Hypokalemia, DI for Dependent Edema, DI for Hypocalcemia, DI for Hyponatremia, DI for Peripheral Edema -- Bilateral Print Language Print Language: Faroese Discharge ED Provider: Misa Louis General Adult HPI General Chief complaint: Extremity Injury, Lower Stated complaint: Swelling in feet, fatigue Time Seen by Provider: 10/18/24 09:40 History of Present Illness HPI narrative: This patient is a 59-year-old male with a history of alcohol abuse (no use since admission in September), alcoholic hepatitis, cirrhosis, hypertension, hyperlipidemia, hypertensive heart disease, CAD, remote history of statin induced rhabdomyolysis presenting to the emergency department for evaluation with concern for swelling in both legs. He notes that for just over a week, he has had significant lower extremity edema that is symmetric bilaterally. He states that no matter what he does, keeping his feet up, taking his medications as prescribed, nothing seems to make it better. He does note that he is also been very fatigued. He states that he had hiccups for about 9 days starting 2 weeks ago, for which his PCP put him on triamterene. He notes that this seemed to help and he only gets hiccups intermittently. He is only taking that medication intermittently as needed when he gets the hiccups. He denies any fevers, chills, chest pain, abdominal pain, distention, vomiting, changes in bowel movements. He does note that he is always short of breath. Related Data Home Medications ?Medication ?Instructions ?Recorded ?Confirmed omeprazole 40 mg capsule,delayed 40 mg PO BID 03/25/22 10/18/24 release albuterol sulfate 90 mcg/actuation 2 puff inhalation QID PRN asthma 07/06/24 10/18/24 aerosol inhaler potassium chloride 20 mEq 20 meq PO BID 09/13/24 10/18/24 tablet,extended release Previous Rx's ?Medication ?Instructions ?Recorded diltiazem HCl 180 mg 180 mg PO BID #30 caps 05/25/24 capsule,extended release 24 hr folic acid 1 mg tablet 1 mg PO DAILY #0 tabs 09/24/24 gabapentin 300 mg capsule 300 mg PO BID #0 caps 09/24/24 ipratropium 0.5 mg-albuterol 3 mg 3 ml inhalation Q6HP PRN Shortness 09/24/24 (2.5 mg base)/3 mL nebulization Of Breath #0 mL soln multivitamin with folic acid 400 1 tab PO 1700 #0 tabs 09/24/24 mcg tablet (Tab-A-Saranya) pantoprazole 40 mg tablet,delayed 40 mg PO BID #0 tabs 09/24/24 release tamsulosin 0.4 mg capsule 0.8 mg (2 x 0.4 mg) PO HS #0 caps 09/24/24 thiamine mononitrate (vit B1) 100 100 mg PO DAILY #0 tabs 09/24/24 mg tablet Allergies Allergy/AdvReac Type Severity Reaction Status Date / Time atorvastatin AdvReac Severe Unknown Verified 10/18/24 09:41 allergy reaction isosorbide AdvReac Mild Headache Verified 10/18/24 09:41 [facility] Disclaimer: The information contained in this section may have been updated after the patient was seen, as this information can be updated by other users. Medical History History of left heart catheterization Dyspnea on exertion Fatigue Mass of pancreas Tick bite Myalgia Acute liver failure Acute renal failure Jaundice Mass of pancreas Alcohol abuse Hypertriglyceridemia Coronary artery disease Cirrhosis Abnormal nuclear cardiac imaging test Rhabdomyolysis Gallstones Transaminitis Hyperuricemia Hepatic steatosis Rheumatoid factor positive Abnormal stress test Edema SOB (shortness of breath) on exertion Primary hypertension Diastolic dysfunction Ex-smoker COPD (chronic obstructive pulmonary disease) GERD (gastroesophageal reflux disease) HLD (hyperlipidemia) HHD (hypertensive heart disease) Surgical History H/O heart artery stent H/O removal of cyst Family History Father Cancer of heart Mother Lung cancer Colon cancer Liver cancer Mother No problems noted. Social History Smoking Status: Former smoker tobacco type: cigarettes packs per day: 20 alcohol intake: former substance use type: denies use current occupational status: retired Travel in the last 8 weeks: None household members: spouse caffeine: No Have you lived/traveled outside [place] in past 30 days?: No Contact w/someone who lives/traveled outside US past 30 days?: No Exposure to someone with infectious disease in past 14 days?: No Do you have a fever (greater than 100.4 F or 38 C)?: No Have you tested positive for COVID-19: No Exposed to someone with COVID-19 in past 14 days?: No Do you have a sore throat?: No Do you have a cough?: No Do you have any weakness?: No Are you experiencing any nausea/vomitting?: No Do you have any diarrhea?: No Are you experiencing any unusual bleeding?: No Do you have any muscle aches/pain?: No Do you have any abdominal pain?: No Are you experiencing loss of taste or smell?: No Other Medical History Have you received the Flu Vaccine for this season: No Have you received the Pneumonia Vaccine: No ROS Obtained: Yes All systems reviewed & no additional complaints except as documented Physical Exam General General appearance: alert and in no apparent distress Head Head exam: atraumatic and normocephalic Eye Eye exam: Present PERRL, EOMI and scleral icterus ENT ENT exam: Present normal exam, normal oropharynx, mucous membranes moist and normal external ear exam Neck Neck exam: Present normal inspection, full ROM and trachea midline; Absent tenderness Chest Chest inspection: Present normal inspection and symmetric chest wall rise; Absent tenderness Respiratory Respiratory exam: Present normal lung sounds bilaterally; Absent respiratory distress, wheezes, stridor or accessory muscle use Cardiovascular Cardiovascular exam: Present normal rhythm and tachycardia Abdominal Exam Abdominal exam: Present soft; Absent distention, tenderness or guarding Extremities Exam Extremities exam: Present full ROM, normal capillary refill and edema (Symmetric bilateral lower extremity edema); Absent tenderness Back Exam Back exam: Present normal inspection and full ROM; Absent tenderness Neurological Exam Neurological exam: Present alert, oriented X3, CN II-XII intact and normal gait; Absent motor sensory deficit Psychiatric Psychiatric exam: Present normal affect and normal mood Skin Skin exam: Present warm, dry and other (Jaundice with scleral icterus) Medical Decision Making Medical Records Medical records reviewed: Yes I reviewed the patient's medical records. Screening: Per USPSTF and CDC recommendations, given the prevalence of disease in our region, it is our hospital?s policy to screen for HIV and viral Hepatitis for all patients aged 18 and over and those with ongoing risk factors. James Inquiry Pt receiving controlled substance: No Vital Signs: 10/18/24 09:43 10/18/24 10:01 10/18/24 10:30 Temperature 98.4 F Temperature Source Oral Pulse Rate 106 H 96 H Pulse Rate [Right Brachial] 103 H Respiratory Rate 18 Blood Pressure 109/67 L 107/63 L Blood Pressure [Right Arm] 118/70 Blood Pressure Mean 73 Blood Pressure Mean [Right Arm] 86 Blood Pressure Source [Right Arm] Automatic Cuff Blood Pressure Position [Right Arm] Sitting 02 Sat by Pulse Oximetry 96 96 95 Oxygen Delivery Method Room Air Room Air 10/18/24 11:00 10/18/24 11:12 10/18/24 11:30 Temperature Temperature Source Pulse Rate 93 H 95 H 97 H Pulse Rate [Right Brachial] Respiratory Rate 12 16 Blood Pressure 106/64 L 88/59 L 112/69 Blood Pressure [Right Arm] Blood Pressure Mean Blood Pressure Mean [Right Arm] Blood Pressure Source [Right Arm] Blood Pressure Position [Right Arm] 02 Sat by Pulse Oximetry 98 96 96 Oxygen Delivery Method Room Air Room Air Room Air 10/18/24 12:07 10/18/24 12:30 10/18/24 13:00 Temperature Temperature Source Pulse Rate 100 H 105 H 91 H Pulse Rate [Right Brachial] Respiratory Rate 18 19 14 Blood Pressure 122/65 113/61 111/68 Blood Pressure [Right Arm] Blood Pressure Mean 71 Blood Pressure Mean [Right Arm] Blood Pressure Source [Right Arm] Blood Pressure Position [Right Arm] 02 Sat by Pulse Oximetry 97 98 98 Oxygen Delivery Method Room Air Room Air 10/18/24 13:31 Temperature Temperature Source Pulse Rate 103 H Pulse Rate [Right Brachial] Respiratory Rate 22 Blood Pressure 125/71 Blood Pressure [Right Arm] Blood Pressure Mean 82 Blood Pressure Mean [Right Arm] Blood Pressure Source [Right Arm] Blood Pressure Position [Right Arm] 02 Sat by Pulse Oximetry 95 Oxygen Delivery Method Lab Data Lab results reviewed: Yes I reviewed the patient's lab results. Lab Results 10/18/24 09:58: WBC 16.2 H, RBC 3.50 L, Hgb 12.0 L, Hct 34.5 L, MCV 98.6 H, MCH 34.3 H, MCHC 34.8, RDW 12.8, Plt Count 425 H, MPV 9.4, Neut % (Auto) 76.5, Lymph % (Auto) 8.7 L, Sargent % (Auto) 9.5 H, Eos % (Auto) 1.0, Baso % (Auto) 1.0, Neut # (Auto) 12.4 H, Lymph # (Auto) 1.4, Sargent # (Auto) 1.5 H, Eos # (Auto) 0.2, Baso # (Auto) 0.2, Total Counted 100, Neutrophils % (Manual) 82 H, Lymphocytes % (Manual) 12, Monocytes % (Manual) 6, Platelet Estimate Normal, Macrocytosis 1+, PT 14.2 H, INR 1.30 H, APTT 33.6 H, D-Dimer 1.41 H, Sodium 131 L, Potassium 3.2 L, Chloride 105, Carbon Dioxide 22, Anion Gap 7.2, BUN 7 L, Creatinine 0.80, Estimated Creat Clear 118, Estimated GFR 99, Est GFR ( Amer) 120, Glucose 98, Calcium 7.8 L, Phosphorus 2.1 L, Magnesium 1.7, Total Bilirubin 19.7 H* D, AST 246 H, ALT 170 H, Alkaline Phosphatase 268 H, Troponin I < 0.01, NT-Pro-B Natriuret Pep 133 H, Total Protein 6.0 L, Albumin 2.9 L, Globulin 3.1, Albumin/Globulin Ratio 0.9 L, Lipase 135 10/18/24 10:02: Ammonia 30 10/18/24 10:05: VBG pH 7.44 H, VBG pCO2 25.5 L, VBG pO2 73.9 H, VBG HCO3 17.0 L, VBG Total CO2 17.8 L, VBG O2 Saturation 94.6 H, VBG Base Excess -7.1 L, VBG Lactic Acid 1.1 10/18/24 12:06: Urine Color Misa, Urine Appearance Slightly cloudy, Urine pH 6.5, Ur Specific Sumner 1.015, Urine Protein Trace A, Urine Glucose (UA) 100, Urine Ketones Negative, Urine Blood Negative, Urine Nitrate Negative, Urine Bilirubin 3+ A, Urine Urobilinogen 1.0, Ur Leukocyte Esterase Negative, Urine RBC None, Urine WBC Occasional, Ur Squamous Epith Cells 5-10 10/18/24 09:58 10/18/24 09:58 Orders (Tests/Meds): ED MEDICATIONS Generic Name Dose Route Start Last Admin Trade Name Frebijan PRN Reason Stop Dose Admin Sodium Chloride 10 ml 10/18/24 12:05 10/18/24 12:06 Sodium Chloride 0.9% 10ml Syr (Rad Only) IV 11/17/24 12:04 10 ml NEEDED PRN Administration Maintain IV Site Discontinued Medications Generic Name Dose Route Start Last Admin Trade Name Frebijan PRN Reason Stop Dose Admin Lactated Ringer's 500 mls @ 999 mls/hr 10/18/24 10:35 10/18/24 10:58 Lactated Ringer's 500ml IV 10/18/24 11:05 999 mls/hr .Q31M ONE Administration Potassium Chloride/Water 100 mls @ 100 mls/hr 10/18/24 10:35 10/18/24 12:35 Potassium Chloride 10meq/100ml Ivpb IV 10/18/24 12:34 100 mls/hr Q1H MALDONADO Administration Calcium Gluconate/Sodium Chloride 2 gm in 100 mls @ 50 mls/hr 10/18/24 10:36 10/18/24 10:58 Calcium Gluconate 2,000mg/100ml Nacl Premix IV 10/18/24 12:35 50 mls/hr ONCE ONE Administration Iopamidol 70 ml 10/18/24 12:05 10/18/24 12:06 Iopamidol-370 (76%);100ml Bottle IV 10/18/24 12:06 70 ml ONCE ONE Administration Potassium Chloride 40 meq 10/18/24 12:47 10/18/24 12:52 Potassium Chloride 20meq Tab PO 10/18/24 12:48 40 meq ONCE ONE Administration Potassium Phosphate 250 mg 10/18/24 12:48 10/18/24 13:16 K-Phos Neutral 250mg Tablet PO 10/18/24 12:49 250 mg ONCE ONE Administration Sodium Chloride 50 ml 10/18/24 12:05 10/18/24 12:06 0.9 % Sodium Chloride 50 Ml Vial IV 10/18/24 12:06 50 ml ONCE ONE Administration ORDERS Category Date Time Status CT abdomen pelvis w con Stat Cat Scan 10/18/24 10:[address] angio chest PE protocol Stat Cat Scan 10/18/24 10:58 Completed CXR --portable [XR chest portable] Stat Exams 10/18/24 09:54 Completed Ammonia Stat Lab 10/18/24 10:02 Completed BNP [NT Pro Brain Natriuretic Pep.] Stat Lab 10/18/24 09:58 Completed Complete Blood Count Auto Diff Stat Lab 10/18/24 09:58 Completed Comprehensive Metabolic Panel Stat Lab 10/18/24 09:58 Completed D-Dimer Stat Lab 10/18/24 09:58 Completed Lipase Stat Lab 10/18/24 09:58 Completed Magnesium Stat Lab 10/18/24 09:58 Completed PT INR [Prothrombin Time INR] Stat Lab 10/18/24 09:58 Completed PTT [Activated Partial Thrombo Time] Stat Lab 10/18/24 09:58 Completed Phosphorous Stat Lab 10/18/24 09:58 Completed Trop I [Troponin I] Stat Lab 10/18/24 09:58 Completed UA [Urinalysis and Microscopic] Stat Lab 10/18/24 12:06 Completed VBG [Venous Blood Gas] Stat RT 10/18/24 10:05 Completed CA venous doppler LE BI Stat Y 10/18/24 10:58 Completed ECG Data Tracing #1: I reviewed this ECG and interpreted as documented below: Normal sinus rhythm with a ventricular rate of 94 bpm. Nonspecific T wave abnormality without acute STEMI. Some motion artifact. ECG initial impression date: 10/18/24 ECG initial impression time: 10:22 Medical Decision Narrative: In summary, this patient is a 59-year-old male presenting to the Emergency Department for evaluation of bilateral leg swelling. Differential diagnoses considered include but are not limited to CHF, MARIA INES, dependent edema, venous insufficiency, anasarca, worsening cirrhosis. Ruling out the most morbid conditions drove assessment. It should be noted patient's history includes alcoholic cirrhosis, COPD, GERD, CAD, hypertension, hyperlipidemia which likely are not at goal therapy. This complicates all aspects of care by increasing patient's risk for morbidity. I reviewed patient's past medical records and noted recent admission for alcoholic hepatitis, at which point MELD score was 27. He was transferred to for transplant evaluation, however according to patient they determined he was not a good transplant candidate. He has follow-up with them arranged 10/25 according to the patient. On exam, he is lying in bed in no acute distress. He does have bilateral lower extremity edema that is symmetric. No redness, warmth, or concerns for infection based on acute exam. No fevers or chills. He is jaundiced with scleral icterus but he notes that this is improved from his prior admission. Vitals are reassuring on cardiac telemetry. Workup included broad lab evaluation to evaluate for infectious, metabolic, cardiac derangements as well as chest x-ray to evaluate for pulmonary edema, EKG. EKG obtained is reassuring. I independently interpreted chest x-ray prior to the radiologist read and noted no overt pulmonary edema. Please see their read for final interpretation. Labs were obtained that demonstrated leukocytosis which is improved from prior labs, mild anemia. Platelet count is upper limits of normal. VBG demonstrates a metabolic alkalosis. Chemistry is concerning for hyponatremia, hypokalemia, hypocalcemia, hypophosphatemia for which IV and oral replacement of electrolytes were ordered. He has significant elevated bilirubin and also has transaminitis. This is actually improved from prior lab evaluation. INR is elevated. His MELD score previous admission was 27 (obtained from ) at time of discharge. MELD score today is 25. D-dimer obtained because of his swelling and shortness of breath is positive, so bilateral DVT ultrasound was obtained and was negative. I also ordered CT PE as well as CT abdomen pelvis with IV contrast for further assessment to make sure he does not have portal venous thrombosis or other concern. I independently interpreted the CT scans prior to radiology read and noted no large PE. He does have gallstones with pericholecystic fluid. Please see their read for final interpretation. They do note that he has inflammation of his gallbladder, and patient states that that is been there. He denies abdominal pain, nausea, vomiting, or fever, and abdominal exam is benign. He notes that he needs to have his gallbladder out according to but they told him he is not a good candidate because of his liver disease. He notes that he has outpatient follow-up with for this. I gave him symptoms to watch out for that would indicate he needs further workup for acute cholecystitis. They also noted a low-density structure adjacent to the uncinate process that could represent pseudocysts versus mass. This was already noted on imaging obtained at 09/23/2024 on my review of medical records. He is following with for all of these things. On reassessment, the patient is resting comfortably in no acute distress. He was monitored closely on cardiac telemetry while receiving replacement of potassium, calcium, K-Phos. Vitals remained stable. According to discharge record from , his labs and MELD score actually improving. His BNP is not significant elevated, and he does not have any pulmonary edema. It is possible that he has some component of dependent edema, so I did give him instructions to keep his feet up to help reduce this. He has very close follow-up arranged at , so I do not feel he requires admission at this time for these things, but I did stress to him the importance of keeping close follow-up. I also advised that he should call his care team at as well as primary care provider to arrange follow-up as soon as possible for assessment. I would like for him to have his labs rechecked this week. At 1130 am, patient was placed in ED observation status pending electrolyte replacement and reassessment to determine whether or not the patient would be appropriate for discharge versus admission. The patient was provided serial reevaluations and cardiac monitoring while awaiting ultimate disposition. After electrolyte repletion, patient is feeling better. He is tolerating oral intake without difficulty. Vitals remain reassuring on cardiac telemetry, and overall he feels like he is doing well. Given that he has very close follow-up arranged for all of the issues discussed above, I feel that he is appropriate for discharge at 1400. He was given very strict return precautions. Total ED observation time was 2 hours and 30 minutes. I had a [id number] visit with the patient when providing discharge instructions. The total time involved in discharging this patient was less than 30 minutes. Critical Care Critical Care Time Critical Care Time: Yes Attestation: On 10/18/24, the high probability of a clinically significant, sudden or life threatening deterioration of the following system(s) required my full and direct attention, intervention and personal management. The time I documented below is in addition to time spent performing reported procedures but includes the following listed in this critical care notation. Total Time Total Critical Care Time: 35
--- NOTE | 2024-10-18 09:54 | XR_ITS ---
FINAL REPORT CLINICAL HISTORY: SOA, edema COMPARISON: 09/16/2024 FINDINGS: No acute pulmonary opacity is present. There is no evidence of effusion or pneumothorax. Mediastinum is unremarkable. Heart size is normal. IMPRESSION: No acute abnormality. Reviewed, Interpreted and Dictated by Kofi Parada MD Transcribed by Michelle Whitney Authenticated and [facility]
--- NOTE | 2024-10-18 10:04 | PC.NURSE ---
CALLED RESPIRATOR TO LET THEM KNOW ABOUT VBG AND IT WAS WAITING IN LAB
[2024-10-18 10:11] LABS: Basophils # 0.2 K/mm3 (0-0.2); Eosinophils # 0.2 K/mm3 (0.0-0.4); Hematocrit 34.5 % (42.0-52.0); Lymphocytes # 1.4 K/mm3 (0.7-4.5); Lymphocytes % 8.7 % (10-50); Mean Corpuscular HGB Conc 34.8 g/dL (31.8-35.4); Mean Corpuscular Hemoglobin 34.3 pg (27.0-31.2); Mean Corpuscular Volume 98.6 fl (80-94); Mean Platelet Volume 9.4 fl (7.4-10.4); Monocytes # 1.5 K/mm3 (0.1-1.0); Monocytes % 9.5 % (1.7-9.3); Neutrophils # 12.4 K/mm3 (1.8-7.8); Neutrophils % 76.5 % (37.0-80.0); Platelet Count 425 K/mm3 (142-424); Red Cell Distribution Width 12.8 % (11.5-17.5); White Blood Count 16.2 K/mm3 (4.8-10.8)
[2024-10-18 10:12] LABS: Lactate Venous 1.1 mmol/L (0.4-2.0); VBG Base Excess -7.1 mmol/L (-2.4-2.3); VBG Oxygen Saturation 94.6 % (50-70); VBG PCO2 25.5 mmol/L (35-51); VBG PH 7.44 mmol/L (7.31-7.41); VBG PO2 73.9 mmol/L (28-40); VBG Total CO2 17.8 mmol/L (23-27)
[2024-10-18 10:14] LABS: Albumin Level 2.9 g/dl (3.5-5.0); Chloride 105 mmol/L (98-107); Potassium 3.2 mmoL/L (3.5-5.1); Sodium 131 mmol/L (136-145)
[2024-10-18 10:17] LABS: Alanine Aminotransferase 170 U/L (12-78); Albumin/Globulin Ratio 0.9 (1.1-1.8); Alkaline Phosphatase 268 U/L (38-126); Anion Gap 7.2 mEq/L (5-15); Aspartate Amino Transferase 246 U/L (17-59); Bilirubin,Total 19.7 mg/dl (0.2-1.3); Blood Urea Nitrogen 7 mg/dl (9-20); Calcium 7.8 mg/dl (8.4-10.2); Carbon Dioxide 22 mmol/L (22.0-30.0); Creatinine Clearance Estimated 118 mL/min (50-200); Estimated Glomerular Filt Rate 99 ml/min (>60); GFR (African American) 120 ML/MIN (>60); Globulin 3.1 g/dL (1.3-3.2); Glucose 98 mg/dl (74-100); Lipase 135 U/L (23-300)
--- NOTE | 2024-10-18 10:20 | ECG_ITS ---
APPROVED REPORT Exam: Resting ECG HR:94 bpm ECG Measurements Heart Rate 94 AXES MA 183 P 72 QRSd 93 QRS 64 QT 384 T 54 QTc 436 Conclusion SINUS RHYTHM NONSPECIFIC T-WAVE ABNORMALITY Motion artifact Electronically signed by : JYOTI TOURE, 10/18/2024 16:10:24
[2024-10-18 10:21] LABS: MANUAL DIFFERENTIAL MANUAL DIFFERENTIAL (MANUAL DIFF)
[2024-10-18 10:23] LABS: Ammonia 30 umol/L (9-30)
[2024-10-18 10:27] LABS: NT Pro Brain Natriuretic Pep. 133 pg/mL (0-125)
[2024-10-18 10:30] LABS: Troponin I < 0.01 ng/ml (0.00-0.034)
[2024-10-18 10:38] LABS: Activated Partial Thrombo Time 33.6 seconds (22.8-30.6); Prothrombin Time 14.2 seconds (10.1-12.5)
[2024-10-18 10:51] LABS: D-Dimer 1.41 ug/mL (0.0-0.5)
[2024-10-18] MEDS: RINGERS SOLUTION,LACTATED 500 ML 999 ML IV (10:58)
[2024-10-18] MEDS: CALCIUM GLUC IN NACL, ISO-OSM 2 GM/100 ML BAG IV (10:58)
[2024-10-18] MEDS: KCl 10mEq/100ml 100 ML 100 MEQ IV ×2 (10:58→12:35)
--- NOTE | 2024-10-18 10:58 | CT_ITS ---
FINAL REPORT TECHNIQUE: Postcontrast axial images of the chest were performed in a CTA protocol. This study was performed with techniques to keep radiation doses as low as reasonably achievable, (ALARA). Individualized dose reduction technique using automated exposure control or adjustment of mA and/or kV according to the patient's size were employed. CLINICAL HISTORY: SOA, elevated d-dimer FINDINGS: The heart is normal in size. No adenopathy is identified. No pleural or pericardial effusion is identified. The thoracic aorta is normal in caliber with no focal aneurysm or dissection identified. Enhancement of the pulmonary vessels is suboptimal. There is no central pulmonary embolism. Peripheral pulmonary branches are poorly evaluated. Irregular density is seen at the right lung apex with scattered central calcifications measuring 29 mm consistent with scarring. IMPRESSION: No gross central pulmonary embolism. No acute lung disease. Reviewed, Interpreted and Dictated by Kofi Parada MD Transcribed by Trisha Cabral Authenticated and . [facility]
--- NOTE | 2024-10-18 10:58 | CA_ITS ---
FINAL REPORT TECHNIQUE: Multiple transverse and longitudinal scans were performed of the bilateral femoral popliteal deep venous system, with augmentation and compression maneuvers. CLINICAL HISTORY: BILATERAL LEG SWELLING,ELEVATED D-DIMER FINDINGS: Normal phasic flow was noted in the visualized deep venous system. No intraluminal increased echogenicity is noted to suggest thrombus. There is normal compression and augmentation of the venous structures. No abnormal venous collaterals are seen. IMPRESSION: No evidence of deep venous thrombosis of the bilateral lower extremities. Reviewed, Interpreted and Dictated by Kofi Parada MD Transcribed by Jenni Oquendo Authenticated and [facility]
--- NOTE | 2024-10-18 10:58 | CT_ITS ---
FINAL REPORT TECHNIQUE: IV contrast enhanced exam This study was performed with techniques to keep radiation doses as low as reasonably achievable, (ALARA). Individualized dose reduction techniques using automated exposure control or adjustment of mA and/or kV according to the patient''s size were employed. CLINICAL HISTORY: cirrhosis, worsening symptoms, BLE edema COMPARISON: 09/13/2024, 09/19/2024 FINDINGS: Abdomen: The liver is fatty infiltrated but less pronounced than on prior exam. There is cholelithiasis with gallbladder wall thickening and adjacent fluid. Acute cholecystitis cannot be excluded. There is no biliary ductal dilatation. Remaining solid abdominal organs are without acute abnormality. There is a low-density structure adjacent to the uncinate process which could represent pseudocyst or loculated fluid. Mass considered less likely. This measures 29 mm, previously measured 13 mm. No bowel obstruction is present. There is no free air. No fluid collection is seen. There is no adenopathy. Pelvis: The appendix is not visualized. Small amount of pelvic free fluid is present, new from prior exam. Urinary bladder and prostate are unremarkable. IMPRESSION: Questionable acute cholecystitis. Consider HIDA scan for further evaluation. Minimal, new ascites. Low-density structure adjacent to the uncinate process which could represent pseudocyst, loculated fluid or less likely, mass. Recommend continued follow-up. Reviewed, Interpreted and Dictated by Kofi Parada MD Transcribed by Trisha Cabral Authenticated and [facility]
[2024-10-18 11:10] LABS: Lymphocytes % 12 % (10-50); Monocytes % 6 % (2-9); Neutrophils % 82 % (42-76); Total Cells Counted 100
[2024-10-18 11:11] LABS: Macrocytosis 1+; Platelet Estimate Normal
[2024-10-18 11:44] LABS: Magnesium 1.7 mg/dl (1.6-2.3); Phosphorous 2.1 mg/dl (2.5-4.5)
[2024-10-18] MEDS: IOPAMIDOL-370 (76%);100ML BOTTLE 70 ML IV (12:06)
[2024-10-18] MEDS: SODIUM CHLORIDE 0.9% 10ML SYR (RAD ONLY) 10 ML IV (12:06)
[2024-10-18] MEDS: 0.9 % SODIUM CHLORIDE 50 ML VIAL IV (12:06)
[2024-10-18 12:12] LABS: Microscopic, Urine URINE MICROSCOPIC (MICROSCOPIC)
[2024-10-18 12:38] LABS: Appearance,Urine Slightly Cloudy (Clear); Color,Urine Amber (Yellow); PH,Urine 6.5 (5.0-8.5); Specific Gravity, Urine 1.015 (1.005-1.030)
[2024-10-18 12:39] LABS: Bilirubin,Urine 3+ (Negative); Blood, Urine Negative (Negative); Glucose,Urine (UA) 100 (Negative); Ketones,Urine Negative (Negative); Nitrate,Urine Negative (Negative); Protein,Urine Trace (Negative)
[2024-10-18 12:40] LABS: Leukocyte Esterase,Urine Negative (Negative); WBC,Urine Occasional #/hpf (0-3)
[2024-10-18] MEDS: POTASSIUM CHLORIDE 20MEQ TAB 40 MEQ PO (12:52)
[2024-10-18] MEDS: K-PHOS NEUTRAL 250MG TABLET 250 MG PO (13:16)
== END 2024-10-18 14:10 | disposition home or self-care (01) ==
PROVIDERS: Emergency Provider Emergency Medicine; PCP Family Medicine
DX: R22.43 Localized swelling, mass and lump, lower limb, bilateral (principal); R53.83 Other fatigue; R06.02 Shortness of breath; R06.6 Hiccough; E83.51 Hypocalcemia; E87.1 Hypo-osmolality and hyponatremia; E83.39 Other disorders of phosphorus metabolism; K86.9 Disease of pancreas, unspecified; Q44.1 Other congenital malformations of gallbladder; K74.60 Unspecified cirrhosis of liver; E87.6 Hypokalemia; I10 Essential (primary) hypertension; E78.5 Hyperlipidemia, unspecified; I25.10 Atherosclerotic heart disease of native coronary artery without angina pectoris; K21.9 Gastro-esophageal reflux disease without esophagitis; J44.9 Chronic obstructive pulmonary disease, unspecified
CPT/HCPCS: 71045; 71275; 74177; 80053; 81001; 82140; 82803; 83690; 83735; 83880; 84100; 84484; 85007; 85025; 85027; 85378; 85610; 85730; 93005; 93970; 96360; 96365; 96366; 99291; J3480; J7120; Q9967

== ENCOUNTER 2024-12-29 07:36 | Outpatient (CLI) | payer BC, SELFPAY ==
--- NOTE | 2024-12-29 | US_ITS ---
FINAL REPORT CLINICAL HISTORY: claudication, HTN, CAD, HLD, NC, smoker COMPARISON: None FINDINGS: ANKLE-BRACHIAL PRESSURE INDICES Pressure indices are as follows: RIGHT LOWER EXTREMITY: Ankle-brachial pressure index: 1.04 Comments: Normal LEFT LOWER EXTREMITY: Ankle-brachial pressure index: 1.01 Comments: Normal CONCLUSION: No evidence of significant obstructive peripheral vascular disease of the lower extremities. Reviewed, Interpreted and Dictated by Sushil Ivey MD Transcribed by Michelle Whitney Authenticated and [facility]
--- OUTSIDE RECORDS SUMMARY | 2024-12-29 07:38 | XMS_ITS ---
Author Organization Unknown Medications Medication Instructions Effective Dates (start - stop) Status omeprazole 40 MG Delayed Rel ease Oral Capsule [id number]:00:00.000+00 :00 - Completed omeprazole 40 MG Delayed Rel ease Oral Capsule [id number]:00:00.000+00 :00 - Completed 24 HR diltiazem hydrochlorid e 180 MG Extended Release Oral Capsule [id number]:00:00.000+ 00 :00 - Completed omeprazole 40 MG Delayed Rel ease Oral Capsule [id number]:00:00.000+00 :00 - Completed 24 HR diltiazem hydrochlorid e 180 MG Extended Release Oral Capsule [id number]:00:00.000+ 00 :00 - Completed clopidogrel 75 MG Oral Tablet 25-06-03:00:00.000+00 :00 - Completed clopidogrel 75 MG Oral Tablet 25-03-08:00:00.000+00 :00 - Completed clopidogrel 75 MG Oral Tablet 26-09-05:00:00.000+00 :00 - Completed clopidogrel 75 MG Oral Tablet 24-12-14:00:00.000+00 :00 - Completed montelukast 10 MG Oral Tablet 25-03-08:00:00.000+00 :00 - Completed rosuvastatin calcium 20 MG O ral Tablet [id number]:00:00.000+00 :00 - Completed 24 HR diltiazem hydrochlorid e 180 MG Extended Release Oral Capsule [id number]:00:00.000+ 00 :00 - Completed hydrochlorothiazide 25 MG Or al Tablet [id number]:00:00.000+00 :00 - Completed hydrochlorothiazide 25 MG Or al Tablet [id number]:00:00.000+00 :00 - Completed 24 HR diltiazem hydrochlorid e 180 MG Extended Release Oral Capsule [id number]:00:00.000+ 00 :00 - Completed losartan potassium 50 MG Oral Tablet [id number]:00:00.000+00 :00 - Completed losartan potassium 50 MG Oral Tablet [id number]:00:00.000+00 :00 - Completed rosuvastatin calcium 40 MG O ral Tablet [id number]:00:00.000+00 :00 - Completed potassium chloride 20 MEQ Ex tended Release Oral Tablet [id number]:00:00.000+00 :00 - Completed 60 ACTUAT testosterone 30 MG /ACTUAT Topical Solution [id number]:00:00.000+00 :00 - Completed prednisone 20 MG Oral Tablet 09-11-08:00:00.000+00 :00 - Completed 60 ACTUAT testosterone 30 MG /ACTUAT Topical Solution [id number]:00:00.000+00 :00 - Completed 60 ACTUAT testosterone 30 MG /ACTUAT Topical Solution [id number]:00:00.000+00 :00 - Completed potassium chloride 20 MEQ Ex tended Release Oral Tablet [id number]:00:00.000+00 :00 - Completed potassium chloride 20 MEQ Ex tended Release Oral Tablet [id number]:00:00.000+00 :00 - Completed 60 ACTUAT testosterone 30 MG /ACTUAT Topical Solution [id number]:00:00.000+00 :00 - Completed potassium chloride 20 MEQ Ex tended Release Oral Tablet [id number]:00:00.000+00 :00 - Completed 60 ACTUAT testosterone 30 MG /ACTUAT Topical Solution [id number]:00:00.000+00 :00 - Completed furosemide 40 MG Oral Tablet 10-07-17:00:00.000+00 :00 - Completed 60 ACTUAT testosterone 30 MG /ACTUAT Topical Solution [id number]:00:00.000+00 :00 - Completed furosemide 40 MG Oral Tablet 10-04-21:00:00.000+00 :00 - Completed 60 ACTUAT testosterone 30 MG /ACTUAT Topical Solution [id number]:00:00.000+00 :00 - Completed 60 ACTUAT testosterone 30 MG /ACTUAT Topical Solution [id number]:00:00.000+00 :00 - Completed rosuvastatin calcium 20 MG O ral Tablet [id number]:00:00.000+00 :00 - Completed 60 ACTUAT testosterone 30 MG /ACTUAT Topical Solution [id number]:00:00.000+00 :00 - Completed 60 ACTUAT testosterone 30 MG /ACTUAT Topical Solution [id number]:00:00.000+00 :00 - Completed 60 ACTUAT testosterone 30 MG /ACTUAT Topical Solution [id number]:00:00.000+00 :00 - Completed potassium chloride 20 MEQ Ex tended Release Oral Tablet [id number]:00:00.000+00 :00 - Completed [id number] 200 ACTUAT albuter ol 0.09 MG/ACTUAT Metered Dose Inhaler [id number]:00:00.000 +00 :00 - Completed famotidine 20 MG Oral Tablet 09-11-15:00:00.000+00 :00 - Completed cefdinir 300 MG Oral Capsule 09-11-08:00:00.000+00 :00 - Completed 60 ACTUAT testosterone 30 MG /ACTUAT Topical Solution [id number]:00:00.000+00 :00 - Completed montelukast 10 MG Oral Tablet 25-06-07:00:00.000+00 :00 - Completed Patient Care team information Name Category Status Period Participants - - Proposed period not known -
== END 2024-12-29 23:59 | disposition home or self-care (01) ==
LOC: RT 07:36
PROVIDERS: PCP Family Medicine; Visit Provider Nurse Practitioner Family
DX: I25.118 Atherosclerotic heart disease of native coronary artery with other forms of angina pectoris (principal); I73.9 Peripheral vascular disease, unspecified; I25.2 Old myocardial infarction; I10 Essential (primary) hypertension; E78.5 Hyperlipidemia, unspecified; F17.200 Nicotine dependence, unspecified, uncomplicated; R94.39 Abnormal result of other cardiovascular function study
CPT/HCPCS: 93923

== ENCOUNTER 2025-01-05 08:18 | Outpatient (CLI) | payer BC, SELFPAY ==
[2025-01-05] MEDS: INCLISIRAN SODIUM 284 MG/1.5 ML SYRINGE SUBCUT (08:26)
[2025-01-05 08:30] VITALS: BP 115/68; PULSE 85; RESP 18; O2SAT 96
== END 2025-01-05 08:30 | disposition home or self-care (01) ==
LOC: INF 08:20
PROVIDERS: PCP Family Medicine; Visit Provider Nurse Practitioner Family
DX: E78.5 Hyperlipidemia, unspecified (principal)
CPT/HCPCS: 96372; J1306

== ENCOUNTER 2025-04-30 17:17 | Inpatient (IN) | payer BC, SELFPAY ==
--- OUTSIDE RECORDS SUMMARY | 2024-09-09 07:45 | XMS_ITS ---
Author Organization [facility] Address 12[address] [facility] [address] [id number] Care Team Providers Care Banquet Lead Name Role Phone Tobin Alvarez Primary Care Provider [phone] Allergies No Known Allergies Results Component Value [...] Interpretation: Performing Lab: Notes/Report: Test performed by [facility] [employer] [address] [place] [address] , [address], [place] [address] Momo Renteria MD, Supplier Diversity Director CLIA: [id number] Vitamin B12 775 753-6816 pg/mL P-Comprehensive Metabolic Pa emily (CMP) Reviewed date:09/13/2024 02:15:53 PM Interpretation: Performing Lab: Notes/Report: Test performed by [facility] [address] [place] [address] , [address], [place] [address] Momo Renteria MD, Supplier Diversity Director CLIA: [id number] Sodium 136 135-145 mmol/L Potassium 3.3 3.5-5.3 [...] Interpretation: Performing Lab: Notes/Report: Test performed by [facility] [address] [place] [address] , [address], [place] [address] Momo Renteria MD, Supplier Diversity Director CLIA: [id number] Magnesium 1.5 1.6-2.4 mg/dL P-PSA Reviewed date:09/13/2024 02:15:53 PM Interpretation: Performing Lab: Notes/Report: Test performed by [facility] [address] [place] [address] , [address], [place] [address] Momo Renteria MD, Supplier Diversity Director CLIA: [id number] PSA 1.40 <4.00 ng/mL Please note this is an ultrasensitive PSA assay with a lower limit of detection of 0.014 ng/mL. This test is performed by the Esa ECLIA methodology. Values obtained with different assay methods or kits cannot be directly compared. P-TSH Reviewed date:09/13/2024 02:15:53 PM Interpretation: Performing Lab: Notes/Report: Test performed by [facility] [address] [place] [address] , [address], [place] [address] Momo Renteria MD, Supplier Diversity Director CLIA: [id number] TSH 2.30 0.43-5.25 mU/L P-Vitamin D 1,25-Dihydroxy a nd 25-Hydroxy Reviewed date:09/13/2024 02:15:53 PM Interpretation: Performing Lab: Notes/Report: Test performed by [facility] [address] [place] [address] , [address], [place] [address] Momo Renteria MD, Supplier Diversity Director CLIA: [id number] Vitamin D 25-Hydroxy 20.7 30.0-100.0 ng/mL Interpretation [...] Omeprazole 40 MG TAKE 1 CAPSULE BY [facility] TWICE A DAY; Duration: 90 Active Problems Problem Type SNOMED Code ICD Code Onset Dates Problem Status W/U Status Risk Notes Problem Cirrhosis of liver (83720666) Cirrhosis of liver (K74.60) Active confirmed Problem Peripheral neuropathy (659624091) Peripheral neuropathy (G62.9) Active confirmed Vital Signs Blood pressure systolic 120 mm Hg 09/09/19 25 Blood pressure diastolic 74 mm Hg 025 Heart Rate 101 /min 09/09/2024 Height 70 in 09/09/2024 Weight 208.4 lbs 09/09/2024 BMI 29.90 kg/m2 09/09/2024 Encounters Encounter Location Date Provider Diagnosis [facility] [address] [facility] [address], [place] [id number] 09/09/2024 Tobin Inderjit Zhangfleet Fatigue R53.83 ; [...] ANA LILIA LIUDOB: 5 (60 yo M)Acc No.[id number]:09/09/2024 Progress Notes Patient: ANA LILIA FLYNN Provider: Tobin Alvarez M.D. :1965 A ge:59 Y S ex:Male Date:09/09/2024 Address:[address] [place] [address] Subjective: * Chief Complaints: * 1 . [...] Treatment: Value Reference Range V itamin B12 226 808-5612 - pg/mL * Katherine Sauer 12:59:19 PM [...] AM)* Value Reference Range V itamin B12 229 021-5547 - pg/mL * Camacho,Katherine Lowry 12:59:19 PM [...] Alejandra Abraham 09/09/2024 1:58:1 5 PM > auth#[id number]; valid 09/09/2024 through 10/08/2024; CPT code 01939 * Procedure Codes: 9 4760 [place], [address] CBC WITH AUTO DIFF, 16200 GLYCATED HEMOGLOBIN TEST, Modifiers: QW , 3044F HG A1C LEVEL LT 7.0%, 3074F SYST BP LT 130 MM HG, 3078F DIAST BP < 80 MM HG * Follow Up: v ia phone to report test results * Images: Billing Information: * Visit Code: 75650 Office Visit, Est Pt., Level 4. * Procedure Codes: [address] [place]. [address] CBC WITH AUTO DIFF. 08054 GLYCATED HEMOGLOBIN TEST. Modifiers: QW 3044F HG A1C LEVEL LT 7.0%. 3074F SYST BP LT 130 MM HG. 3078F DIAST BP < 80 MM HG. * Electronic signature of Tobin Alvarez MD on 04/30/2025 at 05:49 PM EDT Sign off status: Pending * Provider: Tobin Alvarez M.D. Date: 0 09/09/2024 Generated for Printi ng/Faxing/eTransmitting on: 0 04/30/2025 05:49 PM EDT History and Physical Notes * Examination Category [...]
--- OUTSIDE RECORDS SUMMARY | 2024-09-09 07:45 | XMS_ITS ---
Author Organization [facility] Address [address] [facility] [address] [id number] Care Team Providers Care Criminal Attorney Name Role Phone Tobin Alvarez Primary Care [...] Interpretation: Performing Lab: Notes/Report: Test performed by [facility], [facility] [address] [place] [address] , [address], [place] [address] Momo Renteria MD, Tool Planer Set Up Operator CLIA: [id number] Vitamin B12 781 076-3964 pg/mL P-Comprehensive Metabolic Pa emily (CMP) Reviewed date:09/13/2024 02:15:53 PM Interpretation: Performing Lab: Notes/Report: Test performed by [facility] [address] [place] [address] , [address], [place] [address] Momo Renteria MD, Tool Planer Set Up Operator CLIA: [id number] Sodium 136 135-145 mmol/L Potassium 3.3 3.5-5.3 [...] Interpretation: Performing Lab: Notes/Report: Test performed by [facility] [address] [place] [address] , [address], [place] [address] Momo Renteria MD, Tool Planer Set Up Operator CLIA: [id number] Magnesium 1.5 1.6-2.4 mg/dL P-PSA Reviewed date:09/13/2024 02:15:53 PM Interpretation: Performing Lab: Notes/Report: Test performed by [facility] [address] [place] [address] , [address], [place] [address] Momo Renteria MD, Tool Planer Set Up Operator CLIA: [id number] PSA 1.40 <4.00 ng/mL Please note this is an ultrasensitive PSA assay with a lower limit of detection of 0.014 ng/mL. This test is performed by the Esa ECLIA methodology. Values obtained with different assay methods or kits cannot be directly compared. P-TSH Reviewed date:09/13/2024 02:15:53 PM Interpretation: Performing Lab: Notes/Report: Test performed by [facility] [address] [place] [address] , [address], [place] [address] Momo Renteria MD, Tool Planer Set Up Operator CLIA: [id number] TSH 2.30 0.43-5.25 mU/L P-Vitamin D 1,25-Dihydroxy a nd 25-Hydroxy Reviewed date:09/13/2024 02:15:53 PM Interpretation: Performing Lab: Notes/Report: Test performed by [facility] [address] [place] [address] , [address], [place] [address] Momo Renteria MD, Tool Planer Set Up Operator CLIA: [id number] Vitamin D 25-Hydroxy 20.7 30.0-100.0 ng/mL Interpretation [...] Omeprazole 40 MG TAKE 1 CAPSULE BY [facility] TWICE A DAY; Duration: 90 Active Problems Problem Type SNOMED Code ICD Code Onset Dates Problem Status W/U Status Risk Notes Problem Cirrhosis of liver (27433784) Cirrhosis of liver (K74.60) Active confirmed Problem Peripheral neuropathy (836785034) Peripheral neuropathy (G62.9) Active confirmed Vital Signs Blood pressure systolic 120 mm Hg 09/09/19 25 Blood pressure diastolic 74 mm Hg 025 Heart Rate 101 /min 09/09/2024 Height 70 in 09/09/2024 Weight 208.4 lbs 09/09/2024 BMI 29.90 kg/m2 09/09/2024 Encounters Encounter Location Date Provider Diagnosis [facility] [address] [facility] [address] [place], [place] [id number] 09/09/2024 Tobin Inderjit Zhangfleet Fatigue R53.83 ; [...] ANA LILIA LIUDOB: 5 (60 yo M)Acc No.[id number]:09/09/2024 Progress Notes Patient: ANA LILIA FLYNN Provider: Tobin Alvarez M.D. :1965 A ge:59 Y S ex:Male Date:09/09/2024 Address:[address] [place] [address] Subjective: * Chief Complaints: * 1 . [...] Treatment: Value Reference Range V itamin B12 086 279-0032 - pg/mL * Katherine Sauer 12:59:19 PM [...] AM)* Value Reference Range V itamin B12 578 423-7326 - pg/mL * Camacho,Katherine Lowry 12:59:19 PM [...] Alvarez 09/13/2024 2:15:41 PM >See phone encounter 8.?Tobacco abuse?Imaging: CT SCAN : CHEST, LUNG CANCER SCREENING LOW DOSE* Alejandra Abraham 09/09/2024 1:58:1 5 PM > auth#[id number]; valid 09/09/2024 through 10/08/2024; CPT code 66172 * Procedure Codes: 9 47[address] [place], [address] CBC WITH AUTO DIFF, 62956 GLYCATED HEMOGLOBIN TEST, Modifiers: QW , 3044F HG A1C LEVEL LT 7.0%, 3074F SYST BP LT 130 MM HG, 3078F DIAST BP < 80 MM HG * Follow Up: v ia phone to report test results * Images: Billing Information: * Visit Code: 03199 Office Visit, Est Pt., Level 4. * Procedure Codes: [address] [place] [address] CBC WITH AUTO DIFF. 35158 GLYCATED HEMOGLOBIN TEST. Modifiers: QW 3044F HG A1C LEVEL LT 7.0%. 3074F SYST BP LT 130 MM HG. 3078F DIAST BP < 80 MM HG. * Electronic signature of Tobin Alvarez MD on 05/01/2025 at 12:04 PM EDT Sign off status: Pending * Provider: Tobin Alvarez M.D. Date: 0 09/09/2024 Generated for Printi ng/Faxing/eTransmitting on: 0 05/01/2025 12:04 PM EDT History and Physical Notes * [...]
--- OUTSIDE RECORDS SUMMARY | 2024-10-12 05:30 | XMS_ITS ---
Author Organization [facility] Address 1210 [facility] [address] [phone] Care Team Providers Care Hand Expansion Envelope Maker Name Role Phone Tobin Alvarez Primary Care [...] Interpretation:Abnormal Performing Lab: Notes/Report: Test performed by [facility] [address] [place] [address] , [address], [place] [address] Momo Renteria MD, Corporate Investigator CLIA: [id number] Sodium 131 135-145 mmol/L Potassium 3.4 3.5-5.3 [...] A/G Ratio 1.9 1.1-2.5 REASON FOR VISIT [facility] d/c f/u Medications Medication SIG (Take, [...] TAB(S) ORALLY ONCE A DAY Active Tiotropium [place] Monohydrate 2.5 MCG/ACT 2 puffs Inhalation Once [...] [address] [place] [phone] 10/12/2024 Tobin Alvarez Hiccups R06.6 ; Alcoholic [...] ALEXA ANA LILIADOB: 5 (60 yo M)Acc No.[id number]:10/12/2024 Patient: ANA LILIA FLYNN Provider: Tobin Alvarez M.D. :1965 A ge:59 Y S ex:Male Date:10/12/2024 Address:[address] [place] [address] Subjective: * Chief Complaints: * 1 . Good Sim d/c f/u. * HPI: H PI: 59 year old male presents with c/o Here for follow up on: P t is here today for a d/c f/u from the hospital. . G astroenterology: Vini returns for follow-up on recent admission to [facility] and transferred to for acute alcoholic [...] Orally Once a day , Taking Tiotropium [place] Monohydrate 2.5 MCG/ACT Aerosol Solution 2 puffs [...] Temp:98.5, BP:108/60, HR:95, O2 Sat:97% on RA, Nurse:[facility], Ht: 70, BMI:26.57. * Examination: C ardiology: [...] Codes: 8 5025 CBC WITH AUTO DIFF, 11015 VENIPUNCT, ROUTINE* * Follow Up: 2 Months * Images: Billing Information: * Visit Code: 77840 Office Visit, Est Pt., Level 4. * Procedure Codes: 47715 CBC WITH AUTO DIFF. 90170 VENIPUNCT, ROUTINE*. * Electronic signature of Tobin Alvarez MD on 05/01/2025 at 12:03 PM EDT Sign off status: Pending * Provider: Tobin Alvarez M.D. Date: 0 10/12/2024 Generated for Juliai veronique/Abby/eTransmitting on: 0 05/01/2025 12:03 PM EDT History and Physical Notes * HPI (History [...] today for a d/c f/u from the [facility]. Examination Category Sub-Category Detail Notes Category Not [...]
--- OUTSIDE RECORDS SUMMARY | 2024-10-12 05:30 | XMS_ITS ---
Author Organization [facility] Address 1210 [facility] 36 [facility] [address] [place] [phone] Care Team Providers Care Director [employer]r Communications Name Role Phone Toibn Alvarez Primary Care Provider Allergies No Known [...] date:10/18/2024 10:35:22 AM Interpretation:Abnormal Performing Lab: Notes/Report: CLIA: [id number] Momo Renteria MD, Collections Director [facility] [place] , [address], [place] [address] Test performed by [employer], Shidonni Sodium 131 135-145 mmol/L Potassium 3.4 3.5-5.3 [...] A/G Ratio 1.9 1.1-2.5 REASON FOR VISIT [facility] d/c f/u Medications Medication SIG (Take, [...] TAB(S) ORALLY ONCE A DAY Active Tiotropium [place] Monohydrate 2.5 MCG/ACT 2 puffs Inhalation Once [...] [address] [place] [phone] 10/12/2024 Tobin Alvarez Hiccups R06.6 ; Alcoholic [...] ALEXA ANA LILIADOB: 5 (60 yo M)Acc No.[id number]:10/12/2024 Patient: ANA LILIA FLYNN Provider: Tobin Alvarez M.D. :1965 A ge:59 Y S ex:Male Date:10/12/2024 Address:[address] [place] [address] Subjective: * Chief Complaints: * 1 . Good Sim d/c f/u. * HPI: H PI: 59 year old male presents with c/o Here for follow up on: P t is here today for a d/c f/u from the hospital. . G astroenterology: Vini returns for follow-up on recent admission to [facility] and transferred to for acute alcoholic [...] Orally Once a day , Taking Tiotropium [place] Monohydrate 2.5 MCG/ACT Aerosol Solution 2 puffs [...] Temp:98.5, BP:108/60, HR:95, O2 Sat:97% on RA, Nurse:[facility], Ht: 70, BMI:26.57. * Examination: C [...] Codes: 8 5025 CBC WITH AUTO DIFF, 21229 VENIPUNCT, ROUTINE* * Follow Up: 2 Months * Images: Billing Information: * Visit Code: 60158 Office Visit, Est Pt., Level 4. * Procedure Codes: 51574 CBC WITH AUTO DIFF. 07419 VENIPUNCT, ROUTINE*. * Electronic signature of Tobin Alvarez MD on 04/30/2025 at 05:48 PM EDT Sign off status: Pending * Provider: Tobin Alvarez M.D. Date: 0 10/12/2024 Generated for Juliai veronique/Abby/eTransmitting on: 0 04/30/2025 05:48 PM EDT History and Physical Notes * [...] today for a d/c f/u from the [facility]. Examination Category Sub-Category Detail Notes Category [...]
--- OUTSIDE RECORDS SUMMARY | 2024-10-18 10:00 | XMS_ITS ---
Author Organization [facility] Address [address] [place] [id number] Care Team Providers Care District Manager Postal Service Name Role Phone Tobin Alvarez Primary Care Provider [phone] Salvador Herrera [phone] Allergies No Known Allergies REASON FOR VISIT Possible Cellulitis, Pain in Left Leg Encounters Encounter Location Date Provider Diagnosis [facility] [address] [place] [address] [place] [id number] 10/18/2024 Salvador Herrera Plan Of Treatment No Information Progress Notes * ANA LILIA LIUDOB: 5 (60 yo M)Acc No.[id number]:10/18/2024 Progress Notes Patient: ANA LILIA FLYNN Provider: Orlando Herrera M.D. :1965 A ge:59 Y S ex:Male Date:10/18/2024 Address:[address] [place] [address] Pcp:Tobin Alvarez Subjective: * Chief Complaints: * [...] Electronic signature of Sara Herrera MD on 04/30/2025 at 05:48 PM EDT Sign off status: Pending * Provider: Orlando Herrera M.D. Date: 0 10/18/2024 Generated for Leydi piper/Abby/Vanceitting on: 0 04/30/2025 05:48 PM EDT
--- OUTSIDE RECORDS SUMMARY | 2024-10-18 10:00 | XMS_ITS ---
Author Organization [facility] Address [address] [place] [phone] Care Team Providers Care Plasterer Foreman Name Role Phone Tobin Alvarez Primary Care Provider Salvador Herrera [phone] Allergies No Known Allergies REASON FOR VISIT Possible Cellulitis, Pain in Left Leg Encounters Encounter Location Date Provider Diagnosis [facility] [address] [place] [address] [place] [id number] 10/18/2024 Salvador Herrera Plan Of Treatment No Information Progress Notes * ANA LILIA LIUDOB: 5 (60 yo M)Acc No.[id number]:10/18/2024 Progress Notes Patient: ANA LILIA FLYNN Provider: Orlando Herrera M.D. :1965 A ge:59 Y S ex:Male Date:10/18/2024 Address:[address] [place] [address] Pcp:Tobin Alvarez Subjective: * Chief Complaints: * [...] Electronic signature of Sara Herrera MD on 05/01/2025 at 12:03 PM EDT Sign off status: Pending * Provider: Orlando Herrera M.D. Date: 0 10/18/2024 Generated for Leydi piper/Abby/Vanceitting on: 0 05/01/2025 12:03 PM EDT
--- OUTSIDE RECORDS SUMMARY | 2024-10-21 07:45 | XMS_ITS ---
Author Organization [facility] Address [address] [facility] [address] [facility] [address] [place] [phone] Care Team Providers Care Gasket Former Name Role Phone Tobin Alvarez Primary Care Provider Allergies No Known Allergies Results Component Value Reference Range Notes P-Basic Metabolic Panel (BMP ) Reviewed date:10/26/2024 09:02:42 AM Interpretation: Performing Lab: Notes/Report: Test performed by [facility] [address] [place], [place] [address] [address] , [address], [place] [address] Momo Renteria MD, Low Voltage Technician CLIA: [id number] Sodium 136 135-145 mmol/L Potassium 3.6 3.5-5.3 [...] Interpretation: Performing Lab: Notes/Report: Test performed by [facility] [address] [place], [place] [address] [address], [address], [place] [address] Momo Renteria MD, Low Voltage Technician CLIA: [id number] Magnesium 2.0 1.6-2.4 mg/dL P-Phosphorus Reviewed date:10/26/2024 09:02:42 AM Interpretation: Performing Lab: Notes/Report: Test performed by [employer], [employer] [address] [facility] , [address], [place] [address] Momo Renteria MD, Low Voltage Technician CLIA: [id number] Phosphorus 1.9 2.5-4.5 mg/dL REASON FOR VISIT [facility] ER Follow Up Medications Medication SIG (Take, [...] Omeprazole 40 MG TAKE 1 CAPSULE BY [facility] TWICE A DAY; Duration: 90 Active Thiamine HCl 100 MG 1 tablet Orally Once a day; Duration: 30 day(s) Active Tamsulosin HCl 0.4 MG 1 capsule Orally O nce a day; Duration: 30 day(s) Active dilTIAZem HCl ER 180 MG 1 cap(s) twice daily Active Tiotropium [place] Monohydrate 2.5 MCG/ACT 2 puffs Inhalation Once [...] Status W/U Status Risk Notes Problem Hypophosphatemia (6428269) Hypophosphatemia (E83.39) Active confirmed Vital Signs Blood pressure systolic 112 mm Hg 10/22/19 25 Blood pressure diastolic 60 mm Hg 025 Heart Rate 108 /min 10/21/2024 Height 70 in 10/21/2024 Weight 190.2 lbs 10/21/2024 BMI 27.29 kg/m2 10/21/2024 Encounters Encounter Location Date Provider Diagnosis [facility] [address] [facility] [address] [place] [phone] 10/21/2024 Tobin Alvarez Leg edema R60.0 ; [...] * BEBADioneANA LILIADOB: 5 (60 yo M)Acc No.[id number]:10/21/2024 Progress Notes Patient: ANA LILIA FLYNN Provider: Tobin Alvarez M.D. :1965 A ge:59 Y S ex:Male Date:10/21/2024 Address:[address] [place] [address], [place] [address] Subjective: * Chief Complaints: * [address] [facility] ER Follow Up. * HPI: H PI: 59 year old male presents with c/o Here for follow up on: P t is here today for a f/u from [facility] ER. Pt was seen at the ER [...] . * Hospitalization/Major Diagno stic Procedure: U [facility] - Abdominal Pain (Hepatic Cirrhosis) 06/17/2023. [...] Orally Once a day , Taking Tiotropium [place] Monohydrate 2.5 MCG/ACT Aerosol Solution 2 puffs [...] 80 MM HG * Follow Up: W [facility] GI clinic next week and here in 2 weeks * Images: Billing Information: * Visit Code: 02330 Office Visit, Est Pt., Level 4. * Procedure Codes: 3074F SYST BP LT 130 MM HG. 3078F DIAST BP < 80 MM HG. * Electronic signature of Tobin Alvarez MD on 05/01/2025 at 12:03 PM EDT Sign off status: Pending * Provider: Tobin Alvarez M.D. Date: 0 10/21/2024 Generated for Leydi piper/Abby/Vanceitting on: 0 05/01/2025 12:03 PM EDT History and Physical Notes * HPI (History of Present Illness) Category Sub-Category Detail Notes Category Not es Cardiology Short of Breath Chest Pain Palpitations HPI Here for follow up on: Pt is her e today for a f/u from [facility] ER. Pt was seen at the ER [...]
--- OUTSIDE RECORDS SUMMARY | 2024-10-21 07:45 | XMS_ITS ---
Author Organization [facility] Address [address] [facility] [address] [facility] [address] [place] [phone] Care Team Providers Care Director Selection And Administration Name Role Phone Tobin Alvarez Primary Care Provider [phone] Allergies No Known Allergies Results Component Value Reference Range Notes P-Basic Metabolic Panel (BMP ) Reviewed date:10/26/2024 09:02:42 AM Interpretation: Performing Lab: Notes/Report: CLIA: [id number] Momo Renteria MD, Spinning [employer] [address] [place] [address] , [address], [place] [address] Test performed by [employer] Sodium 136 135-145 mmol/L Potassium 3.6 3.5-5.3 [...] Interpretation: Performing Lab: Notes/Report: Test performed by [employer] [address] [place], [place] [address] [place] , [address], [place] [address] Momo Renteria MD, Spinning Lathe Operator [employer] CLIA: [id number] Magnesium 2.0 1.6-2.4 mg/dL P-Phosphorus Reviewed date:10/26/2024 09:02:42 AM Interpretation: Performing Lab: Notes/Report: Test performed by [employer], [employer] [address] [facility] , [address], [place] [address] Momo Renteria MD, Spinning Lathe Operator [employer] CLIA: [id number] Phosphorus 1.9 2.5-4.5 mg/dL REASON FOR VISIT [facility] ER Follow Up Medications Medication SIG [...] 40 MG TAKE 1 CAPSULE BY [facility] TWICE A DAY; Duration: 90 Active Thiamine HCl 100 MG 1 tablet Orally Once a day; Duration: 30 day(s) Active Tamsulosin HCl 0.4 MG 1 capsule Orally O nce a day; Duration: 30 day(s) Active dilTIAZem HCl ER 180 MG 1 cap(s) twice daily Active Tiotropium [place] Monohydrate 2.5 MCG/ACT 2 puffs Inhalation Once [...] Status W/U Status Risk Notes Problem Hypophosphatemia (0169132) Hypophosphatemia (E83.39) Active confirmed Vital Signs Blood pressure systolic 112 mm Hg 10/22/19 25 Blood pressure diastolic 60 mm Hg 025 Heart Rate 108 /min 10/21/2024 Height 70 in 10/21/2024 Weight 190.2 lbs 10/21/2024 BMI 27.29 kg/m2 10/21/2024 Encounters Encounter Location Date Provider Diagnosis [facility] [address] [facility] [address] [place] [phone] 10/21/2024 Tobin Alvarez Leg edema R60.0 ; [...] * BEBADioneANA LILIADOB: 5 (60 yo M)Acc No.[id number]:10/21/2024 Progress Notes Patient: ANA LILIA FLYNN Provider: Tobin Alvarez M.D. :1965 A ge:59 Y S ex:Male Date:10/21/2024 Address:[address] [place] [address], [place] [address] Subjective: * Chief Complaints: * 1 . [facility] ER Follow Up. * HPI: H PI: 59 year old male presents with c/o Here for follow up on: P t is here today for a f/u from [facility]. Pt was seen at the [...] . * Hospitalization/Major Diagno stic Procedure: U [facility] - Abdominal Pain (Hepatic Cirrhosis) 06/17/2023. * [...] Orally Once a day , Taking Tiotropium [place] Monohydrate 2.5 MCG/ACT Aerosol Solution 2 puffs [...] 80 MM HG * Follow Up: [facility] GI clinic next week and here in 2 weeks * Images: Billing Information: * Visit Code: 64920 Office Visit, Est Pt., Level 4. * Procedure Codes: 3074F SYST BP LT 130 MM HG. 3078F DIAST BP < 80 MM HG. * Electronic signature of Tobin Alvarez MD on 04/30/2025 at 05:48 PM EDT Sign off status: Pending * Provider: Tobin Alvarez M.D. Date: 0 10/21/2024 Generated for Leydi piper/Abby/Vanceitting on: 0 04/30/2025 05:48 PM EDT History and Physical Notes * HPI (History of Present Illness) Category Sub-Category Detail Notes Category Not es Cardiology Short of Breath Chest Pain Palpitations HPI Here for follow up on: Pt is her e today for a f/u from [facility]. Pt was seen at the [...]
[2025-04-30] VITALS (22 sets, daily range): BP systolic 101–131; BP diastolic 64–85; PULSE 74–101; RESP 16–20; TEMP 36.9–37; O2SAT 91–99; BMI 28.0; BMI 30.8
--- NOTE | 2025-04-30 17:21 | ED_ITS ---
Discharge Plan Disposition Patient Disposition: Admitted Condition: Good Clinical Impressions Clinical Impression: Alcohol withdrawal Discharge ED Provider: Elizabeth Rahman General Adult HPI General Chief complaint: Alcohol Stated complaint: mental status changes Time Seen by Provider: 04/30/25 17:21 History of Present Illness HPI narrative: Patient is a 60-year-old male with a past medical history of liver disease, daily drinker who quit drinking on Friday who presented to the emergency department with visual hallucinations. Patient states that he does not have a history of alcohol withdrawal seizures but does have a history of delirium tremens. states that they dumped out all of his alcohol on Friday. Patient has not had a drink since then. Patient was drinking approximately half a pint or more a day for the last 6 to 8 months. The last time patient stopped drinking was about 6 to 8 months ago. Patient does have significant liver disease follows with liver team. Patient denies a headache but does endorse nausea has had some vomiting. Patient denies any abdominal pain. Patient denies any chest pain or shortness of breath. Patient states that he started having visual hallucinations last night. Patient is not having auditory hallucinations. Related Data Home Medications ?Medication ?Instructions ?Recorded ?Confirmed omeprazole 40 mg capsule,delayed 40 mg PO BID 03/25/22 05/01/25 release albuterol sulfate 90 mcg/actuation 2 puff inhalation Q ID PRN asthma 07/06/24 05/01/25 aerosol inhaler furosemide 40 mg tablet 40 mg PO DAILY 12/13/2404/05 potassium chloride 20 mEq 20 meq PO BID 12/13/2405/01 tablet,extended release testosterone 30 mg/actuation (1.5 2 pump transdermal D AILY 12/13/24 05/01/25 mL) transderm solution metered pump tramadol 50 mg tablet 50 mg PO Q6H PRN pain 05/01/25 Previous Rx's ?Medication ?Instructions ?Recorded folic acid 1 mg tablet 1 mg PO DAILY #0 tabs ipratropium 0.5 mg-albuterol 3 mg 3 ml inhalation Q6HP PRN Shortness 09/24/24 (2.5 mg base)/3 mL nebulization Of Breath #0 mL soln multivitamin with folic acid 400 1 tab PO 1700 #0 tabs 09/24/24 mcg tablet (Tab-A-Saranya) diltiazem HCl 120 mg 120 mg PO QAM #90 caps 12/13 capsule,extended release 24 hr inclisiran 284 mg/1.5 mL 284 mg (1.5 mL) SQ [id number] #1.5 mL 12/13/24 subcutaneous syringe (Leqvio) Allergies Allergy/AdvReac Type Severity Reaction Status Date / Time atorvastatin AdvReac Severe Unknown Verified 04/30/25 23:58 allergy reaction isosorbide AdvReac Mild Headache Verified 04/30/25 23:58 [facility] Disclaimer: The information contained in this section may have been updated after the patient was seen, as this information can be updated by other users. Medical History Claudication Edema History of left heart catheterization Dyspnea on exertion Fatigue Mass of pancreas Tick bite Myalgia Acute liver failure Acute renal failure Jaundice Mass of pancreas Alcohol abuse Hypertriglyceridemia Coronary artery disease Cirrhosis Abnormal nuclear cardiac imaging test Rhabdomyolysis Gallstones Transaminitis Hyperuricemia Hepatic steatosis Rheumatoid factor positive Abnormal stress test SOB (shortness of breath) on exertion Primary hypertension Diastolic dysfunction Ex-smoker COPD (chronic obstructive pulmonary disease) GERD (gastroesophageal reflux disease) HLD (hyperlipidemia) HHD (hypertensive heart disease) Surgical History H/O heart artery stent H/O removal of cyst Tumor removal on back Family History Father Cancer of heart Mother Lung cancer Colon cancer Liver cancer Mother No problems noted. Social History (Updated 05/01/25 @ 00:06 by Latasha Carnes RN) Smoking Status: Former smoker tobacco type: cigarettes packs per day: 20 alcohol intake: current alcohol intake frequency: 3 or more drinks per day substance use type: denies use current occupational status: retired Travel in the last 8 weeks?: None household members: spouse caffeine: No Have you lived/traveled outside [place] in past 30 days?: No Contact w/someone who lives/traveled outside US past 30 days?: No Exposure to someone with infectious disease in past 14 days?: No Do you have a fever (greater than 100.4 F or 38 C)?: No Have you tested positive for COVID-19?: No Exposed to someone with COVID-19 in past 14 days?: No Do you have a sore throat?: No Do you have a cough?: No Do you have any weakness?: No Are you experiencing any nausea/vomitting?: No Do you have any diarrhea?: No Are you experiencing any unusual bleeding?: No Do you have any muscle aches/pain?: No Do you have any abdominal pain?: No Are you experiencing loss of taste or smell?: No Other Medical History Have you received the Flu Vaccine for this season: No Have you received the Pneumonia Vaccine: No ROS Obtained: Yes All systems reviewed & no additional complaints except as documented and Yes Systems reviewed as appropriate & no additional complaints except as documented Physical Exam General General appearance: alert and in no apparent distress Head Head exam: atraumatic, normocephalic and normal inspection Eye Eye exam: Present normal appearance, PERRL, EOMI and jaundice; Absent scleral icterus ENT ENT exam: Present normal exam and normal external ear exam Neck Neck exam: Present normal inspection and full ROM Chest Chest inspection: Present normal inspection and symmetric chest wall rise Respiratory Respiratory exam: Present normal lung sounds bilaterally; Absent respiratory distress or wheezes Cardiovascular Cardiovascular exam: Present regular rate, normal rhythm and normal heart sounds Abdominal Exam Abdominal exam: Present soft and distention; Absent tenderness, guarding or rebound Extremities Exam Extremities exam: Present normal inspection and full ROM Back Exam Back exam: Present normal inspection and full ROM Neurological Exam Neurological exam: Present alert and oriented X3 Psychiatric Psychiatric exam: Present normal affect and normal mood Skin Skin exam: Present warm and dry Medical Decision Making Medical Records Medical records reviewed: Yes I reviewed the patient's medical records. Screening: Per USPSTF and CDC recommendations, given the prevalence of disease in our region, it is our hospital?s policy to screen for HIV and viral Hepatitis for all patients aged 18 and over and those with ongoing risk factors. James Inquiry Pt receiving controlled substance: No Vital Signs: 04/30/25 17:24 04/30/25 17:31 04/30/25 17:45 Temperature 98.4 F Temperature Source Oral Pulse Rate 96 H Pulse Rate [Left] 96 H Respiratory Rate 16 Blood Pressure 131/85 Blood Pressure [Right Arm] 131/85 Blood Pressure Mean 96 Blood Pressure Mean [Right Arm] 100 Blood Pressure Source [Right Arm] Automatic Cuff Blood Pressure Position [Right Arm] Sitting 02 Sat by Pulse Oximetry 99 94 L Oxygen Delivery Method Room Air Oxygen Flow Rate (LPM) 04/30/25 18:08 04/30/25 18:30 04/30/25 18:53 Temperature Temperature Source Pulse Rate 95 H 90 96 H Pulse Rate [Left] Respiratory Rate Blood Pressure 101/64 L Blood Pressure [Right Arm] Blood Pressure Mean Blood Pressure Mean [Right Arm] Blood Pressure Source [Right Arm] Blood Pressure Position [Right Arm] 02 Sat by Pulse Oximetry 94 L 94 L 96 Oxygen Delivery Method Oxygen Flow Rate (LPM) 04/30/25 19:00 04/30/25 19:00 04/30/25 19:05 Temperature Temperature Source Pulse Rate 91 H Pulse Rate [Left] Respiratory Rate Blood Pressure 122/77 115/79 Blood Pressure [Right Arm] Blood Pressure Mean 92 88 Blood Pressure Mean [Right Arm] Blood Pressure Source [Right Arm] Blood Pressure Position [Right Arm] 02 Sat by Pulse Oximetry 94 L Oxygen Delivery Method Oxygen Flow Rate (LPM) 04/30/25 19:05 04/30/25 19:15 04/30/25 19:24 Temperature Temperature Source Pulse Rate 96 H 94 H 101 H Pulse Rate [Left] Respiratory Rate Blood Pressure 115/79 Blood Pressure [Right Arm] Blood Pressure Mean Blood Pressure Mean [Right Arm] Blood Pressure Source [Right Arm] Blood Pressure Position [Right Arm] 02 Sat by Pulse Oximetry 95 96 96 Oxygen Delivery Method Nasal Cannula Oxygen Flow Rate (LPM) 2 04/30/25 19:30 04/30/25 19:36 04/30/25 20:00 Temperature Temperature Source Pulse Rate 96 H 101 H Pulse Rate [Left] Respiratory Rate Blood Pressure 111/81 Blood Pressure [Right Arm] Blood Pressure Mean 89 Blood Pressure Mean [Right Arm] Blood Pressure Source [Right Arm] Blood Pressure Position [Right Arm] 02 Sat by Pulse Oximetry 95 96 Oxygen Delivery Method Oxygen Flow Rate (LPM) 04/30/25 20:59 04/30/25 21:00 04/30/25 22:25 Temperature Temperature Source Pulse Rate 99 H 78 Pulse Rate [Left] Respiratory Rate Blood Pressure Blood Pressure [Right Arm] Blood Pressure Mean 85 Blood Pressure Mean [Right Arm] Blood Pressure Source [Right Arm] Blood Pressure Position [Right Arm] 02 Sat by Pulse Oximetry 93 L 93 L Oxygen Delivery Method Oxygen Flow Rate (LPM) 04/30/25 22:25 04/30/25 22:25 04/30/25 22:26 Temperature Temperature Source Pulse Rate 94 H 74 Pulse Rate [Left] Respiratory Rate 16 Blood Pressure 115/71 115/71 Blood Pressure [Right Arm] Blood Pressure Mean Blood Pressure Mean [Right Arm] Blood Pressure Source [Right Arm] Blood Pressure Position [Right Arm] 02 Sat by Pulse Oximetry 93 L 92 L 93 L Oxygen Delivery Method Room Air Room Air Oxygen Flow Rate (LPM) 04/30/25 22:26 Temperature 98.6 F Temperature Source Pulse Rate 74 Pulse Rate [Left] Respiratory Rate 16 Blood Pressure 115/71 Blood Pressure [Right Arm] Blood Pressure Mean Blood Pressure Mean [Right Arm] Blood Pressure Source [Right Arm] Blood Pressure Position [Right Arm] 02 Sat by Pulse Oximetry Oxygen Delivery Method Room Air Oxygen Flow Rate (LPM) Lab Data Lab results reviewed: Yes I reviewed the patient's lab results. Lab Results 04/30/25 17:35: WBC 14.3 H, RBC 3.45 L, Hgb 12.2 L, Hct 34.3 L, MCV 99.4 H, MCH 35.4 H, MCHC 35.6 H, RDW 18.9 H, Plt Count 201, MPV 11.3 H, Neut % (Auto) 77.8, Lymph % (Auto) 9.6 L, [place] % (Auto) 10.8 H, Eos % (Auto) 0.3, Baso % (Auto) 0.3, Neut # (Auto) 11.2 H, Lymph # (Auto) 1.4, [place] # (Auto) 1.6 H, Eos # (Auto) 0.1, Baso # (Auto) 0.1, Total Counted 100, Neutrophils % (Manual) 76, Lymphocytes % (Manual) 11, Monocytes % (Manual) 12 H, Basophils % (Manual) 1, Platelet Estimate Normal, RBC Morphology Normal, Hypochromasia 1+, Anisocytosis 1+, PT 22.1 H, INR 2.10 H, Sodium 135 L, Potassium 3.1 L, Chloride 103, Carbon Dioxide 19 L, Anion Gap 16.1 H, BUN 11, Creatinine 1.20, Estimated Creat Clear 80, Estimated GFR 62, Est GFR ( Amer) 75, Glucose 112 H, Calcium 8.7, Phosphorus 3.4, Magnesium 1.4 L, Total Bilirubin 19.1 H*, Direct Bilirubin 16.3 H, AST 242 H, ALT 67, Alkaline Phosphatase 464 H, Total Protein 7.5, Albumin 3.5, Globulin 4.0 H, Albumin/Globulin Ratio 0.9 L, Lipase 180, Plasma/Serum Alcohol < 10, HIV Ag/Ab Combo Qual Negative 04/30/25 19:20: Urine Color Yellow, Urine Appearance Clear, Urine pH 5.5, Ur Specific [place] <= 1.005, Urine Protein Negative, Urine Glucose (UA) Negative, Urine Ketones Negative, Urine Blood Negative, Urine Nitrate Negative, Urine Bilirubin 3+ A, Urine Urobilinogen 0.2, Ur Leukocyte Esterase Negative, Urine RBC None, Urine WBC None, Ur Squamous Epith Cells Occasional, Urine Bacteria None, Urine Opiates Screen Negative 04/30/25 19:20: Urine Opiates Screen Negative, Urine Methadone Screen Negative 04/30/25 19:20: Urine Methadone Screen Negative, Ur Barbituates Screen Negative 04/30/25 19:20: Ur Barbituates Screen Negative, Ur Phencyclidine Scrn Negative 04/30/25 19:20: Ur Phencyclidine Scrn Negative, Ur Amphetamines Screen Negative 04/30/25 19:20: Ur Amphetamines Screen Negative, U Benzodiazepines Scrn Negative 04/30/25 19:20: U Benzodiazepines Scrn Negative, Urine Cocaine Screen Negative 04/30/25 19:20: Urine Cocaine Screen Negative, U Marijuana (THC) Screen Negative 04/30/25 19:20: U Marijuana (THC) Screen Negative 04/30/25 17:35 04/30/25 17:35 Orders (Tests/Meds): ED MEDICATIONS Generic Name Dose Route Start Last Admin Trade Name Freq PRN Reason Stop Dose Admin Albuterol/Ipratropium 3 ml 04/30/25 22:55 Ipratropium/Albuterol 3 Ml Neb IH 05/30/25 22:54 Q6HP PRN Shortness Of Breath Diazepam 10 mg 04/30/25 17:46 04/30/25 18:02 Diazepam 10mg/2ml Syringe IV 05/30/25 17:45 10 mg Q1HP PRN Administration CIWA >16 Diazepam 5 mg 04/30/25 17:46 05/01/25 00:54 Diazepam 10mg/2ml Syringe IV 05/30/25 17:45 5 mg Q1HP PRN Administration CIWA Score 8-15 Diazepam 5 mg 04/30/25 17:46 04/30/25 23:51 Diazepam 5mg Tablet PO 05/30/25 17:45 5 mg Q6HP PRN Administration CIWA 2-7 Diltiazem HCl 120 mg 05/01/25 09:00 Diltiazem Er 120mg Capsule PO 05/31/25 08:59 DAILY [facility] Enoxaparin Sodium 40 mg 05/01/25 09:00 Enoxaparin 40mg/0.4ml Syringe SUBCUT 05/31/25 08:59 DAILY MALDONADO Folic Acid 1 mg 04/30/25 18:00 04/30/25 19:35 Folic Acid 1mg Tablet PO 05/30/25 17:59 1 mg DAILY MALDONADO Administration Potassium Chloride/Sodium Chloride 1,000 mls @ 125 mls/hr 04/30/25 23:30 04/30/25 23:44 Kcl 40 Meq-Ns 1,000ml Iv Soln IV 05/01/25 23:29 125 mls/hr .Q8H MALDONADO Administration Multivitamins 1 each 05/01/25 17:00 Multivitamin Tablet PO 05/31/25 16:59 1700 MALDONADO Ondansetron HCl 4 mg 04/30/25 17:46 Ondansetron 4mg/2ml Vial IV 05/30/25 17:45 Q6HP PRN Nausea Pantoprazole Sodium 40 mg 05/01/25 21:00 Pantoprazole 40mg Vial IV 05/31/25 20:59 HS MALDONADO Prochlorperazine Edisylate 10 mg 04/30/25 22:30 Prochlorperazine 10mg/2ml Vial IM 05/30/25 22:29 Q6HP PRN Nausea And Vomiting Thiamine HCl 100 mg 04/30/25 18:00 04/30/25 19:35 Thiamine 100mg Tablet PO 05/02/25 09:01 100 mg DAILY MALDONADO Administration Discontinued Medications Generic Name Dose Route Start Last Admin Trade Name Freq PRN Reason Stop Dose Admin Sodium Chloride 1,000 mls @ 999 mls/hr 04/30/25 19:54 04/30/25 20:59 Sod Chlor 0.9% 1000ml Bag IV 04/30/25 20:54 999 mls/hr .Q1H1M ONE Administration Potassium Chloride/Water 100 mls @ 50 mls/hr 04/30/25 20:25 05/01/25 00:39 Potassium Chloride 20meq/100ml Ivpb IV 05/01/25 02:24 Not Given Q2H MALDONADO Magnesium Sulfate 2 gm in 50 mls @ 50 mls/hr 04/30/25 20:26 04/30/25 20:58 Magnesium Sulfate 2gm/50ml Premix IV 04/30/25 21:25 50 mls/hr ONCE ONE Administration Iopamidol 80 ml 04/30/25 18:43 04/30/25 18:45 Iopamidol-370 (76%);100ml Bottle IV 04/30/25 18:44 80 ml ONCE ONE Administration Sodium Chloride 50 ml 04/30/25 18:43 04/30/25 18:44 0.9 % Sodium Chloride 50 Ml Vial IV 04/30/25 18:44 50 ml ONCE ONE Administration Sodium Chloride 10 ml 04/30/25 18:43 04/30/25 18:45 Sodium Chloride 0.9% 10ml Syr (Rad Only) IV 04/30/25 18:44 10 ml ONCE ONE Administration ORDERS Category Date Time Status CT abdomen pelvis w con Stat Cat Scan 04/30/25 17:[address] angio chest PE protocol Stat Cat Scan 04/30/25 17:[address] cervical spine wo con Stat Cat Scan 04/30/25 17:[address] head/brain wo con Stat Cat Scan 04/30/25 17:38 Completed CXR --portable [XR chest portable] Stat Exams 04/30/25 17:40 Completed Bilirubin,Direct Stat Lab 04/30/25 17:35 Completed CBC w/Auto Diff [Complete Blood Count Auto Diff] Stat Lab 04/30/25 17:35 Completed CMP [Comprehensive Metabolic Panel] Stat Lab 04/30/25 17:35 Completed Complete Blood Count Auto Diff AMLAB Lab 05/01/25 06:00 Ordered Complete Blood Count Auto Diff AMLAB Lab 05/02/25 06:00 Ordered Complete Blood Count Auto Diff AMLAB Lab 05/03/25 06:00 Ordered Comprehensive Metabolic Panel [facility]AB Lab 05/01/25 06:00 Ordered Comprehensive Metabolic Panel [facility] Lab 05/02/25 06:00 Ordered Comprehensive Metabolic Panel [facility] Lab 05/03/25 06:00 Ordered Drug Screen,Urine Routine Lab 04/30/25 19:20 Completed Ethyl Alcohol Stat Lab 04/30/25 17:35 Completed HIV Combo Stat Lab 04/30/25 17:35 Completed Lipase Stat Lab 04/30/25 17:35 Completed Magnesium [facility] Lab 05/01/25 06:00 Ordered Magnesium [facility] Lab 05/02/25 06:00 Ordered Magnesium AMLAB Lab 05/03/25 06:00 Ordered Magnesium Routine Lab 04/30/25 17:35 Completed Phosphorous [facility] Lab 05/01/25 06:00 Ordered Phosphorous AMLAB Lab 05/02/25 06:00 Ordered Phosphorous AMLAB Lab 05/03/25 06:00 Ordered Phosphorous Routine Lab 04/30/25 17:35 Completed Prothrombin Time INR Stat Lab 04/30/25 17:35 Completed UA [Urinalysis and Microscopic] Stat Lab 04/30/25 19:20 Completed UDS [Drug Screen,Urine] Stat Lab 04/30/25 19:20 Completed Urine Culture Stat Micro 04/30/25 19:20 Received Medical Decision Narrative: Patient is a 60-year-old male with a past medical history of alcohol use, liver disease who presented to the emergency department with visual hallucinations. On arrival, patient was mildly tachycardic vital signs were otherwise unremarkable. Differential includes but not limited to: Decompensated liver disease, alcohol withdrawal, delirium tremens, nutritional deficiency, electrolyte abnormalities, amongst others. Patient's labs were reviewed and interpreted by myself: CBC showed mild leukocytosis of 14, hemoglobin stable. INR was 2.10. CMP was largely unremarkable. Magnesium was low at 1.4. Hypokalemia of 3.1. Patient had an elevated Esteban of 19 which is consistent with his previous bilirubins. Patient's LFTs are at their baseline. UA showed no evidence of infection. Urine drug screen negative. Serum alcohol level was normal. On arrival, patient scored a CIWA of 30. Patient was ordered IV fluids and IV Valium. Patient was placed on CIWA protocol. Patient CT imaging was reviewed and interpreted by myself: CT head showed no acute intracranial pathology. CT chest and abdomen showed no acute pathology. Patient's EKG had significant artifact but showed no acute ST or T wave changes concerning for ischemia. Patient's chest x-ray was reviewed and interpreted by myself and showed no focal consolidation, pneumothorax, pleural effusion or other acute cardiopulmonary process. Patient had an otherwise unremarkable workup in the emergency department however given patient's CIWA score of 30 and patient's acute alcohol withdrawal I felt that patient warranted admission. Patient had been already placed on CIWA protocol. After lengthy discussion with the patient, patient initially wanted to leave however patient decided to stay. I consulted the hospital medicine team patient was admitted to the ICU for patient's visual hallucinations in the setting of acute alcohol withdrawal. Patient's LFTs bilirubin are at his baseline for his liver disease, patient does not show any acute decompensation at this time. Critical Care Critical Care Time Critical Care Time: No
--- NOTE | 2025-04-30 17:38 | CT_ITS ---
PROCEDURE INFORMATION: Exam: CT Cervical Spine Without Contrast Exam date and time: 04/30/2025 6:42 PM Age: 60 years old Clinical indication: Other: Midline spinal tenderness TECHNIQUE: Imaging protocol: Computed tomography of the cervical spine without contrast. Total images: 461 Radiation optimization: All CT scans at this facility use at least one of these dose optimization techniques: automated exposure control; mA and/or kV adjustment per patient size (includes targeted exams where dose is matched to clinical indication); or iterative reconstruction. COMPARISON: MR CERVICAL SPINE WO CON 09/10/2019 8:12 AM FINDINGS: Bones: Straightened cervical lordosis. Vertebral body height and alignment is maintained. Base of the dens and the C1 and C2 articulations are preserved. The cervicooccipital junction is intact. The facet joints are appropriately aligned. Unremarkable posterior elements. Moderate to severe degenerative disc disease at C3-C4, C5-C6, and C6-C7. Associated posterior projecting disc osteophyte complex at these levels results in mild acquired spinal canal stenosis. No large disc herniation or critical spinal canal stenosis. Cervicothoracic junction is preserved. Lungs: Biapical fibrosis and scarring. Pleural spaces: Biapical pleural thickening/scarring. Vasculature: Minor calcifications bilateral carotid artery bifurcations. Soft tissues: No prevertebral soft tissue swelling. Unremarkable soft tissues of the neck. IMPRESSION: 1. No acute cervical fracture or traumatic subluxation. 2. Straightened lordosis from position or muscle spasm. 3. Moderate to severe degenerative disc disease at C3-C4, C5-C6, and C6-C7.
--- NOTE | 2025-04-30 17:38 | CT_ITS ---
PROCEDURE INFORMATION: Exam: CT Abdomen And Pelvis With Contrast Exam date and time: 04/30/2025 6:45 PM Age: 60 years old Clinical indication: Other: Jaundice TECHNIQUE: Imaging protocol: Computed tomography of the abdomen and pelvis with contrast. 3D rendering (Not supervised by radiologist): MIP and/or 3D reconstructed images were created by the technologist. Radiation optimization: All CT scans at this facility use at least one of these dose optimization techniques: automated exposure control; mA and/or kV adjustment per patient size (includes targeted exams where dose is matched to clinical indication); or iterative reconstruction. Contrast material: ISOVUE; Contrast volume: 80 ml; Contrast route: IV; COMPARISON: CT ABDOMEN PELVIS W CON 10/18/2024 11:53 AM FINDINGS: Lungs: The visualized lung bases demonstrate no focal infiltrates or pleural effusions. Liver: Moderate changes of cirrhosis with superimposed hepatomegaly. Severe hepatic steatosis. Gallbladder and biliary ducts: There is a stone/high density sludge within the neck of the gallbladder that measures about 17 mm. This is unchanged from the prior exam. Pancreas: The pancreas is normal. Spleen: Mild splenomegaly. Adrenal glands: Normal. No mass. Kidneys and ureters: Normal. No hydronephrosis. Stomach and bowel: Unremarkable. No obstruction. No mucosal thickening. Appendix: No evidence of appendicitis. Intraperitoneal space: Mild diffuse mesenteric edema. Moderate diffuse mesenteric edema. Vasculature: Moderate atherosclerotic calcifications of the aorta. Lymph nodes: Unremarkable. No pathologically enlarged lymph nodes are identified. Urinary bladder: The bladder appears within normal limits. No wall thickening. Reproductive: Unremarkable as visualized. 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 There is associated grade 1 anterolisthesis. Severe degenerative disc disease at L4-L5. Avascular necrosis right femoral head without femoral head flattening. Soft tissues: Unremarkable. IMPRESSION: 1. Moderate changes of cirrhosis with superimposed hepatomegaly. Severe hepatic steatosis. No evidence for biliary ductal dilatation. 2. Moderate diffuse mesenteric edema. 3. There is a stone/high density sludge within the neck of the gallbladder that measures about 17 mm. This is unchanged from the prior exam. 4. 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 There is associated grade 1 anterolisthesis. 5. Severe degenerative disc disease at L4-L5. 6. Avascular necrosis right femoral head without femoral head flattening.
--- NOTE | 2025-04-30 17:38 | CT_ITS ---
PROCEDURE INFORMATION: Exam: CT Head Without Contrast Exam date and time: 04/30/2025 6:40 PM Age: 60 years old Clinical indication: Injury or trauma; Other: Hit head. +etoh; Blunt trauma (contusions or hematomas) TECHNIQUE: Imaging protocol: Computed tomography of the head without contrast. Total images: 583 Radiation optimization: All CT scans at this facility use at least one of these dose optimization techniques: automated exposure control; mA and/or kV adjustment per patient size (includes targeted exams where dose is matched to clinical indication); or iterative reconstruction. COMPARISON: CT HEAD/BRAIN WO CON 09/18/2024 3:25 AM FINDINGS: Brain: No acute intracranial hemorrhage, midline shift, or mass. Mild cortical and cerebellar atrophy. Mild remote white matter small-vessel ischemic changes. No acute territorial infarct. Remote lacunar infarct versus prominent CSF fluid space inferior left basal ganglia. Remote deep white matter ischemic change versus skull base attenuation artifact within the danika. Basilar cisterns are maintained. Cerebral ventricles: No ventriculomegaly. Paranasal sinuses: Visualized sinuses are unremarkable. No fluid levels. Mastoid air cells: Visualized mastoid air cells are well aerated. Bones: No skull fracture or concerning bone lesions. Soft tissues: Unremarkable. Vasculature: Mild calcifications bilateral intracranial internal carotid arteries. IMPRESSION: 1. No acute intracranial process. 2. Mild chronic intracranial findings. 3. No significant change from September 18, 2024.
--- NOTE | 2025-04-30 17:40 | XR_ITS ---
PROCEDURE INFORMATION: Exam: XR Chest Exam date and time: 04/30/2025 6:49 PM Age: 60 years old Clinical indication: Shortness of breath TECHNIQUE: Imaging protocol: Radiologic exam of the chest. Views: 1 view. COMPARISON: CT ANGIO CHEST PE PROTOCOL 04/30/2025 6:45 PM FINDINGS: Lungs: Unremarkable. No consolidation. Pleural spaces: Unremarkable. No pleural effusion. No pneumothorax. Heart/Mediastinum: Unremarkable. No cardiomegaly. Bones/joints: Unremarkable. IMPRESSION: No acute findings.
--- NOTE | 2025-04-30 17:44 | CT_ITS ---
PROCEDURE INFORMATION: Exam: CTA Chest With Contrast Exam date and time: 04/30/2025 6:45 PM Age: 60 years old Clinical indication: Other: Jaundice TECHNIQUE: Imaging protocol: Computed tomographic angiography of the chest with contrast. Exam focused on the arteries. 3D rendering (Not supervised by radiologist): MIP and/or 3D reconstructed images were created by the technologist. Radiation optimization: All CT scans at this facility use at least one of these dose optimization techniques: automated exposure control; mA and/or kV adjustment per patient size (includes targeted exams where dose is matched to clinical indication); or iterative reconstruction. Contrast material: ISO 370; Contrast volume: 75 ml; Contrast route: INTRAVENOUS (IV); COMPARISON: CT ANGIO CHEST PE PROTOCOL 10/18/2024 11:53 AM FINDINGS: Pulmonary arteries: Normal. No pulmonary emboli. Great vessels off aortic arch: The mediastinal structures including the esophagus, trachea, great vessels, and heart show no evidence of injury or acute pathologic processes. Aorta: Unremarkable. No aortic aneurysm. No aortic dissection. Lungs: Mild upper lobe paraseptal emphysema. No acute infiltrates. Pleural spaces: Right apical pleural-parenchymal scarring with dystrophic calcification, unchanged from remote CT scan from July 14 2019 consistent with prior granulomatous infection. Heart: See Great vessels off aortic arch finding. Coronary arteries: Three-vessel coronary artery calcifications. Lymph nodes: Unremarkable. No enlarged lymph nodes. Liver: Partially visualized cirrhosis and hepatic steatosis-see CT abdomen report. Bones/joints: Unremarkable. No acute fracture. Soft tissues: Unremarkable. IMPRESSION: 1. Right apical pleural-parenchymal scarring with dystrophic calcification, unchanged from remote CT scan from July 14 2019 consistent with prior granulomatous infection. 2. Three-vessel coronary artery calcifications. 3. Mild upper lobe paraseptal emphysema. 4. No acute infiltrates. 5. Partially visualized cirrhosis and hepatic steatosis-see CT abdomen report. COMMENTS: The presence of pulmonary emphysema on CT is an independent risk factor for lung cancer. In the absence of a history or active diagnosis of lung cancer, it is recommended that this patient with emphysema be evaluated for enrollment in a low dose CT lung cancer screening program.
[2025-04-30 17:45] LABS: Hematocrit 34.3 % (42.0-52.0); Hemoglobin 12.2 g/dL (14.1-18.0); Immature Granulocytes % 1.2 %; Mean Corpuscular HGB Conc 35.6 g/dL (31.8-35.4); Mean Corpuscular Hemoglobin 35.4 pg (27.0-31.2); Mean Corpuscular Volume 99.4 fl (80-94); Nucleated Red Blood Cells % 0.2 %; Platelet Count 201 K/mm3 (142-424); Red Blood Count 3.45 M/mm3 (4.60-6.20); Red Cell Distribution Width-SD 68.1 fL; White Blood Count 14.3 K/mm3 (4.8-10.8)
--- OUTSIDE RECORDS SUMMARY | 2025-04-30 17:49 | XMS_ITS | Patient Health Record ---
Author Organization [facility] Address [address] [facility] [address] [place] [phone] Care Team Providers Care Certified Procedural Coder Name Role Phone Tobin Alvarez Unavailable [phone] Reason For Referral No Information Medications Medication SIG (Take, Route, Fr equency, Duration) Notes Start Date End Date Status Loratadine 10 MG 1 tab(s) orally once a day; Duration: 90 Active Plavix 75 MG 1 tab(s) orally once a day; Duration: 30 day(s) Active Encounters Encounter Location Date Provider Diagnosis [facility] [address] [place] [phone] 11/05/2024 Tobin Alvarez Plan Of Treatment No Information
--- OUTSIDE RECORDS SUMMARY | 2025-04-30 17:49 | XMS_ITS | Patient Health Record ---
[facility] Address [address] [phone] Care Team Providers Care Director Of Group Counseling Program Name Role Phone Tobin Alvarez Primary Care Provider Salvador Herrera Unavailable [phone] Allergies No Known Allergies Results Component Value [...] Interpretation:Abnormal Performing Lab: Notes/Report: Test performed by [address] [facility] , [address], [place] [address] Momo Renteria MD, Registered Nurse Cardiac Telemetry CLIA: [id number] Sodium 131 135-145 mmol/L Potassium 3.4 3.5-5.3 [...] 30.1 <0.2-1.2 mg/dL A/G Ratio 1.9 1.1-2.5 P-Basic Metabolic Panel (BMP ) Reviewed date:10/26/2024 09:02:42 AM Interpretation: Performing Lab: Notes/Report: Test performed by [address] [place], [place] [address] [place] , [place] [address] Momo Renteria MD, Registered Nurse Cardiac Telemetry CLIA: [id number] Sodium 136 135-145 mmol/L Potassium 3.6 3.5-5.3 [...] Interpretation: Performing Lab: Notes/Report: Test performed by [address] [place], [place] [address] [place] , [address], [place] [address] Momo Renteria MD, Registered Nurse Cardiac Telemetry CLIA: [id number] Magnesium 2.0 1.6-2.4 mg/dL P-Phosphorus Reviewed date:10/26/2024 09:02:42 AM Interpretation: Performing Lab: Notes/Report: Test performed by [address] [place], [place] [address] [place] , [address], [place] [address] Momo Renteria MD, Registered Nurse Cardiac Telemetry CLIA: [id number] Phosphorus 1.9 2.5-4.5 mg/dL P-TSH Reviewed date:09/13/2024 02:15:53 PM Interpretation: Performing Lab: Notes/Report: CLIA: [id number] Momo Renteria MD, Registered Nurse Cardiac Telemetry [address] [place] [address] , [address], [place] [address] [address] TSH 2.30 0.43-5.25 mU/L P-Magnesium Reviewed date:09/13/2024 02:15:53 PM Interpretation: Performing Lab: Notes/Report: Test performed by [address] [place] [address] , [address], [place] [address] Momo Renteria MD, Registered Nurse Cardiac Telemetry CLIA: [id number] Magnesium 1.5 1.6-2.4 mg/dL Glycohemoglobin A1c (in hous e) Reviewed date:09/13/2024 02:15:53 PM Interpretation:4.6% Performing Lab: Notes/Report: 4.6% glycohemoglobin 4.6% 5 - 6.5 % P-PSA Reviewed date:09/13/2024 02:15:53 PM Interpretation: Performing Lab: Notes/Report: Test performed by [address] [place] [address] , [address], [place] [address] Momo Renteria MD, Registered Nurse Cardiac Telemetry CLIA: [id number] PSA 1.40 <4.00 ng/mL Please note this is an ultrasensitive PSA assay with a lower limit of detection of 0.014 ng/mL. This test is performed by the Esa ECLIA methodology. Values obtained with different assay methods or kits cannot be directly compared. P-Comprehensive Metabolic Pa emily (CMP) Reviewed date:09/13/2024 02:15:53 PM Interpretation: Performing Lab: Notes/Report: Test performed by [address] [place] [address] , [address], [place] [address] Momo Renteria MD, Registered Nurse Cardiac Telemetry CLIA: [id number] Sodium 136 135-145 mmol/L Potassium 3.3 3.5-5.3 [...] 25.6 <0.2-1.2 mg/dL A/G Ratio 1.7 1.1-2.5 P-Vitamin B12 Reviewed date:09/13/2024 02:15:53 PM Interpretation: Performing Lab: Notes/Report: Test performed by [employer], [address] , [address], [place] [address] Momo Renteria MD, Registered Nurse Cardiac Telemetry CLIA: [id number] Vitamin B12 [phone] pg/mL CBC Venipuncture (in house) Reviewed date:09/13/2024 02:15:53 [...] - 38 platlet 234 100 - 400 Influenza Screen (in house) Reviewed date:06/03/2024 11:02:28 [...] Interpretation:Negative Performing Lab: Notes/Report: Negative Result: neg P-Vitamin D 1,25-Dihydroxy a nd 25-Hydroxy Reviewed date:09/13/2024 02:15:53 PM Interpretation: Performing Lab: Notes/Report: Test performed by [address] [place] [address] , [address], [place] [address] Momo Renteria MD, Registered Nurse Cardiac Telemetry CLIA: [id number] Vitamin D 25-Hydroxy 20.7 30.0-100.0 ng/mL Interpretation of Vitamin D 25 OH: < 20 ng/mL - Deficiency 20 - 29 ng/mL - Insufficiency 30 - 100 ng/mL - Sufficiency > 100 ng/mL - Super-therapeutic- toxicity may occur above this level. Clinical correlation required. Vitamin D, 1, 25 Dihydroxy 27.5 19.9-79.3 pg/m L Medications Medication SIG (Take, Route, Frequency, Duration) Notes Start Date End Date Status Aspirin 81 MG 1 TAB(S) ORALLY ONCE A DAY Active Furosemide 40 MG 1 tablet Orally Once a day prn for swelling; Duration: 30 days Active traMADol HCl 50 MG 1 tab(s) Orally q6h prn 025 Active Omeprazole 40 MG 1 capsule 1/2 to 1 h our before morning meal Orally twice a day; Duration: 90 days Active Albuterol Sulfate HFA 108 (90 Base) MCG/ACT 2 puffs four times a day as needed Active Folic Acid 1 MG 1 tablet Orally Once a day Active Testosterone 30 MG/ACT 2 pump(s) transde rmally once a day; Duration: 30 day(s) 10/05/2024 Active rOPINIRole HCl 0.5 MG 1 tablet 1 to 3 ho urs before bedtime Orally Once a day; Duration: 30 day(s) Active Budesonide-Formoterol Fumarate 160-4.5 MCG/ACT as directed Inhalation Active Rosuvastatin Calcium 20 MG TAKE 1 TABLET BY MOUTH EVERY DAY FOR 30 DAYS; Duration: 90 Not-Taking chlorproMAZINE HCl 25 MG 1 tablet Orally Three times a day 10/12/2024 Active Thiamine HCl 100 MG 1 tablet Orally Once a day; Duration: 30 day(s) Active Tamsulosin HCl 0.4 MG 1 capsule Orally O nce a day; Duration: 30 day(s) Active Potassium Phosphate Monobasic 500 MG 2 tablets with meals and at bedtime Orally Two times a day; Duration: 30 days 10/27/2024 Active dilTIAZem HCl ER 180 MG 1 cap(s) twice daily Active Tiotropium [place] Monohydrate 2.5 MCG/ACT 2 puffs Inhalation Once a day Active Potassium Chloride ER 20 MEQ 1 tablet with food Orally twice a day; Duration: 90 days Active Immunizations Vaccine Route Administration Date Status Comme nts tuberculin (ppd) ID Intradermal 08/11/2007 Administered DT, 7 YEARS OR OLDER Unknown 10/08/1996 Administered COVID 19 Kirk Unknown 12/16/2020 Administered Problems Problem Type SNOMED Code ICD Code Onset Dates Problem Status W/U Status Risk Notes Problem Coronary arteriosclerosis (76744962) ASCVD (arteriosclerotic cardiovascular disease) (I25.10) Active confirmed Problem Hypertension (21470437) HTN (hypertension) (I10) Active confirmed Problem COPD - Chronic obstructive pulmonary disease (68486170) COPD (chronic obstructive pulmonary disease) (J44.9) Active confirmed Problem Hyperuricemia (44164885) Hyperuricemia (E79.0) Active confirmed Problem Acute exacerbation of chronic obstructive airways disease (150206772) COPD exacerbation (J44.1) Active confirmed Problem Peripheral neuropathy (950807750) Peripheral neuropathy (G62.9) Active confirmed Problem Rheumatoid factor positive (520818697) Rheumatoid factor positive (R76.8) Active confirmed Problem Alcohol abuse (23264212) Alcohol abuse (F10.10) Active confirmed Problem Acute alcoholic liver disease (6279040) Alcoholic hepatitis without ascites (K70.10) Active confirmed Problem Degeneration of cervical intervertebral disc (91270825) Degenerative disc disease, cervical (M50.30) Active confirmed Problem Gastroesophageal reflux disease with esophagitis (229089879) Gastroesophageal reflux disease with esophagitis (K21.0) Active confirmed Problem Cirrhosis of liver (05334026) Cirrhosis of liver (K74.60) Active confirmed Problem Hypophosphatemia (5491305) Hypophosphatemia (E83.39) Active confirmed Problem Dyslipidemia (085302169) Dyslipidemia (E78.5) Active confirmed Problem Hypotestosteronism (6899091157305) Hypotestosteronism (E29.1) Active confirmed Problem Skin sensation disturbance (00395097) Paresthesia of foot, bilateral (R20.2) Active confirmed Problem Steatosis of liver (823763623) Hepatic steatosis (K76.0) Active confirmed Problem Gallstones (348474463) Gallstones (K80.20) Active confirmed Problem Seasonal allergic rhinitis (100410666) Seasonal allergic rhinitis, unspecified trigger (J30.2) Active confirmed Vital Signs Heart Rate 108 /min 10/21/2024 Blood pressure diastolic 60 mm Hg 10/21/2024 Height 70 in 10/21/2024 Blood pressure systolic 112 mm Hg 10/21/2024 Weight 190.2 lbs 10/21/2024 BMI 27.29 kg/m2 10/21/2024 Encounters Encounter Location Date Provider Diagnosis [address] [id number] 06/03/2024 R Inderjit Antonio Acute bronchitis due to Hemophilus influenzae J20.[address] [id number] 09/09/2024 R Inderjit Antonio Fatigue R53.83 ; Jau ndice R17 ; Cirrhosis of liver K74.60 ; COPD (chronic obstructive pulmonary disease) J44.9 ; Alcohol abuse F10.10 ; Alcoholic hepatitis without ascites K70.10 ; Peripheral neuropathy G62.9 ; Screening for prostate cancer Z12.5 ; HTN (hypertension) I10 ; Tobacco abuse Z72.0 and Screening for diabetes mellitus Z13.[address] [id number] 10/12/2024 R Inderjit Antonio Hiccups R06.6 ; Alco holic hepatitis without ascites K70.10 and Cirrhosis of liver K74.[address] [id number] 10/21/2024 R Inderjit Antonio Leg edema R60.0 ; HT N (hypertension) I10 ; Hypophosphatemia E83.39 and Leg pain M79.606 [place] [address] [place] [id number] 07/15/2024 R Inderjit Antonio [facility] [address] [place] [id number] 07/15/2024 R Inderjit Antonio Dorsalgia, unspecifi ed M54.9 ; Other chronic pain G89.29 ; Pain in left leg M79.605 and Pain in right leg M79.604 [facility] [address] [place] [id number] 09/10/2024 R Inderjit Antonio [facility] [place] [address] [place] [id number] 09/14/2024 R Inderjit Antonio [facility] [place] [address] [place] [id number] 10/01/2024 R Inderjit Antonio [facility] [place] [address] [place] [id number] 10/05/2024 R Inderjit Antonio [facility] [place] [address] [place] [id number] 10/07/2024 R Inderjit Antonio [facility] [address] [place] [id number] 10/13/2024 R Inderjit Antonio [facility] [address] [place] [id number] 10/26/2024 R Inderjit Antonio [facility] [place] [address] [place] [id number] 10/27/2024 R Inderjit Antonio [facility] [address] [place] [id number] 11/05/2024 R Inderjit Antonio Leg pain M79.606 [facility] [address] [place] [id number] 11/12/2024 R Inderjit Antonio [facility] [address] [place] [id number] 11/25/2024 R Inderjit Londonot Hiccups R06.6 [facility] [address] [facility] [address] [place] [id number] 12/21/2024 Salvador Garrett Leg pain M79.606 [facility] [address] [facility] [address] [place] [id number] 03/08/2025 R Inderjit Childerseet Leg pain M79.606 [facility] [address] [place] [id number] 04/29/2025 R Inderjit Childerseet Assessments Encounter Date Diagnosis (ICD Code) Assessment Notes Treatment Notes Treatment Clinical Notes Section Notes 11/05/2024 Leg pain (ICD-10 - M79.606) 12/21/2024 Leg pain (ICD-10 - M79.606) 03/08/2025 Leg pain (ICD-10 - M79.606) 11/25/2024 Hiccups (ICD-10 - R06.6) 10/21/2024 HTN (hypertension) (ICD-10 - I10) 10/21/2024 Leg edema (ICD-10 - R60.0) 10/12/2024 Alcoholic hepatitis without ascites (ICD-10 - K70.10) 10/12/2024 Hiccups (ICD-10 - R06.6) 09/09/2024 Fatigue (ICD-10 - R53.83) 09/09/2024 Jaundice (ICD-10 - R17) 07/15/2024 Dorsalgia, unspecified (ICD-10 - M54.9) 06/03/2024 Acute bronchitis due to Hemophilus influenzae (ICD-10 - J20.1) 07/15/2024 Other chronic pain (ICD-10 - G89.29) 09/09/2024 Cirrhosis of liver (ICD-10 - K74.60) Keep appointment with GI next week for colonoscopy 10/21/2024 Hypophosphatemia (ICD-10 - E83.39) 10/12/2024 Cirrhosis of liver (ICD-10 - K74.60) Keep follow-up with Hepatology clinic at 10/21/2024 Leg pain (ICD-10 - M79.606) 09/09/2024 COPD (chronic obstructive pulmonary disease) (ICD-10 - J44.9) He needs a pulmonology consultation and has already been referred to Dr. Motta by cardiology. He is provided a month supply of Trelegy samples to resume pending pulmonology consultation. 07/15/2024 Pain in left leg (ICD-10 - M79.605) 07/15/2024 Pain in right leg (ICD-10 - M79.604) 09/09/2024 Alcohol abuse (ICD-10 - F10.10) 09/09/2024 Alcoholic hepatitis without ascites (ICD-10 - K70.10) 09/09/2024 Peripheral neuropathy (ICD-10 - G62.9) 09/09/2024 Screening for prostate cancer (ICD-10 - Z12.5) 09/09/2024 HTN (hypertension) (ICD-10 - I10) 09/09/2024 Tobacco abuse (ICD-10 - Z72.0) 09/09/2024 Screening for diabetes mellitus (ICD-10 - Z13.1) Plan Of Treatment Pending Test Test Name Order Date CT SCAN : CHEST, LUNG CANCER SCREENING L OW DOSE 09/09/2024 H-Urea Breath Test 01/03/2022 H-CMP 01/03/2022 Insurance Providers Payer Name Payer Address Payer Phone Subscriber Number Group Number Insured Name Patient Relationship to Insured Coverage Start Date Coverage End Date [facility] [address] [place] [address] [id number] ANA LILIA LIU Self - patient is the insured Medications Administered Medication Instructions Date of Administration Dosage Notes Depo- Medrol 40 mg/ml 06/16/2009 1.5 mL Depo- Medrol 40 mg/ml 04/02/2010 1.5 mL Depo- Medrol 40 mg/ml 04/15/2011 1.5 mL Depo- Medrol 40 mg/ml 06/14/2011 1.5 mL Depo- Medrol 40 mg/ml 08/01/2011 1 mL Depo- Medrol 40 mg/ml 05/19/2012 1.5 mL Depo- Medrol 40 mg/ml 02/24/2015 1.5 mL Depo- Medrol 40 mg/ml 11/23/2015 1.5 mL Depo- Medrol 40 mg/ml 04/15/2016 1.5 mL Dexamethasone 04/28/2006 1.0 mL Dexamethasone 06/02/2007 1 mL Dexamethasone 06/05/2007 Dexamethasone 10/04/2008 1.0 mL Dexamethasone 10/14/2008 1.0 mL Dexamethasone 07/14/2009 1.0 mL Dexamethasone 10/30/2009 1.0 mL Dexamethasone 11/16/2009 1.0 mL Dexamethasone 12/12/2009 Dexamethasone 09/05/2010 1.0 mL Dexamethasone 11/22/2011 1.0 mL Dexamethasone 01/28/2012 1.0 mL Dexamethasone 10/06/2012 1.0 mL Dexamethasone 07/05/2013 1.0 mL Dexamethasone 07/29/2013 1 mL Dexamethasone 10/01/2013 1.0 mL Dexamethasone 01/05/2014 4 mg Dexamethasone 07/15/2014 1 mL Dexamethasone 09/21/2014 1 mL Dexamethasone 10/26/2014 1 mL Dexamethasone 10/17/2016 1 mL Dexamethasone 01/28/2017 1 mL Dexamethasone 04/04/2017 1 mL Dexamethasone 11/19/2021 1 mL Medical (General) History Medical History History ICD Code allergic rhinitis Esophageal reflux tobacco abuse, 40 pack year history, trish t in 2007 COPD OA HBP HLP ASCVD - s/p stent 02/2018 Sero-positive rheumatoid arthritis - Dr. Carrasquillo Alcoholic hepatitis EtOH abuse Chronic back pain due to DDD/DJD/spondyl olisthesis Surgical History Surgery Date(Month/Year) none Hospitalization History Reason Date(Month/Year) [facility] - Abdominal Pain (Hepatic Cirr hosis) 06/17/2023
--- OUTSIDE RECORDS SUMMARY | 2025-04-30 17:49 | XMS_ITS | Clinical Summary ---
Author Organization [facility] Address [address] [place] [address] Care Team Providers Care Filling Technician Name Role Phone Salvador Alvarez MD Primary Care Provider [phone] Allergies Active Allergy Reactions Criticality Noted Date Comments Atorvastatin Other - please docum ent in the comment field Low 01/02/2023 Patient stated he experiences muscle aches and leg pain. Medications * This document contains information received from the source organization and may not represent a complete record from that organization. dilTIAZem CD (Cardizem CD) 180 MG 24 hr capsule Take 1 capsule (180 mg) by mouth 1 (one) time each day. 3 Active testosterone (Axiron) 30 MG/ACT topical solution Place 2 Pump on the skin daily. 3 Active albuterol 108 (90 Base) MCG/ACT inhaler Inhale 2 puffs 4 (four) times a day as needed for wheezing. Active budesonide-formo terol (Symbicort) 160-4.5 MCG/ACT inhaler Inhale 2 puffs 2 (two) times a day. Rinse mouth with water after use to reduce aftertaste and incidence of candidiasis. Do not swallow. 1 g 4 Active potassium chloride CR (Klor-Con M20) 20 MEQ ER tablet Take 1 tablet (20 mEq) by mouth 2 (two) times a day. Do not crush or chew. Active omeprazole (PriLOSEC) [address] capsule Take 1 capsule (40 mg) by mouth daily. 5 Active Tiotropium [place] Monohydrate (Spiriva Respimat) 2.5 MCG/ACT inhaler Inhale 2 puffs daily. 4 g 1 5 Active rOPINIRole (Requip) 0.5 MG tabletIndication s:Restless Leg Syndrome Take 1 tablet (0.5 mg) by mouth nightly. 30 tablet 5 Active Active Problems Problem Noted Date Diagnosed Date Decompensated hepatic cirrhosis 09/24/2024 Alcoholic hepatitis 12/05/2023 Rhabdomyolysis 12/05/2023 Alcoholism 12/05/2023 Simple chronic bronchitis 12/05/2023 Coronary artery disease invo lving [place]oksack coronary artery of nooksack heart without angina pectoris 12/05/2023 Resolved Problems Problem Noted Date Diagnosed Date Resolved Date MARIA INES (acute kidney injury) 11/27/2023 Family History Medical History Relation Name Comments Anesthesia problems Neg Hx Malig Hyperthermia Neg Hx Social History Tobacco Use Types Packs/Day Years Used Date Smoking Tobacco: Former Cigarettes Q uit: 2013 Passive Smoke Exposure: Past Smokeless Tobacco: Never Alcohol Use Standard Drinks/Week Comments Yes 0 (1 standard drink = 0.6 oz pure alcohol) daily drinking, 8 oz liquor on avg daily. No hx withdrawal. Humiliation, Afraid, Rape, and Kick questionnair e Answer Date Recorded Within the last year, have y ou been afraid of your partner or ex-partner? No 09/27/2024 Within the last year, have y ou been humiliated or emotionally abused in other ways by your partner or ex-partner? No Within the last year, have y ou been kicked, hit, slapped, or otherwise physically hurt by your partner or ex-partner? No 09/27/2024 Within the last year, have y ou been raped or forced to have any kind of sexual activity by your partner or ex-partner? No 09/27/2024 PHQ-2 Answer Date Recorded Patient Health Questionnaire-2 Score 0 07/10/2023 Hunger Vital Sign Answer Date Recorded Within the past 12 months, y ou worried that your food would run out before you got the money to buy more. Never true 09/27/19 25 Within the past 12 months, t he food you bought just didn't last and you didn't have money to get more. Never true 09/27/2024 PRAPARE - Transportation Answer Date Re corded In the past 12 months, has l ack of transportation kept you from medical appointments or from getting medications? No 09/05 In the past 12 months, has l ack of transportation kept you from meetings, work, or from getting things needed for daily living? No 09/27/2024 Housing Stability Vital Sign Answer Richard e Recorded In the last 12 months, was t here a time when you were not able to pay the mortgage or rent on time? No 11/28/2023 Number of Places Lived in the Last Year Not on f ile 11/28/2023 In the last 12 months, was t here a time when you did not have a steady place to sleep or slept in a long-term (including now)? No 11/28/2023 Housing Stability Vital Sign Answer Richard e Recorded In the last 12 months, was t here a time when you were not able to pay the mortgage or rent on time? No 09/27/2024 Number of Times Moved in the Last Year Not on fi le 09/27/2024 At any time in the past 12 m [facility], were you homeless or living in a long-term (including now)? No 09/27/2024 CAGE ASSESSMENT Answer Date Recorded Cage unable to access Not on file 12/07/2023 Cage max number of drinks Not on file 2023 Cage Beverages a week Not on file 12/07/2023 Have you ever felt you should CUT down on your d rinking? 0 12/07/2023 Have you been ANNOYED by people criticizing your drinking? 0 12/07/2023 Have you felt GUILTY about your drinking? 0 12/07/2023 Have you had a drink first t carolyn in the morning (EYE-FITNESS DIRECTOR) to steady your nerves or to get rid of a hangover? 0 12/07/2023 CAGE Questionnaire Score 0 024 Utilities Answer Date Recorded In the past 12 months has th e electric, gas, oil, or water company threatened to shut off services in your home? No 09/27/2024 PHQ-2A Answer Date Recorded Patient Health Questionnaire-2 Score 0 07/10/2023 Sex and Gender Information Value Date Recorded Sex Assigned at Not on file Legal Sex Male 7:26 PM EDT Gender Identity Not on file Sexual Orientation Not on file Last Filed Vital Signs Vital Sign Reading Time Taken Comments Blood Pressure 130/60 09/30/2024 12:45 PM EST Pulse 100 09/30/2024 12:45 PM EST Temperature 36.7 C (98.1 F) 09/30/2024 12:45 PM EST Respiratory Rate 16 09/30/2024 2:30 AM EST Oxygen Saturation 94% 09/30/2024 12:45 PM EST Inhaled Oxygen Concentration - - Weight 87 kg (191 lb 12.8 oz) 09/24/2024 7:27 PM EST Height 183 cm (6' 0.05 ) 09/24/2024 7:27 PM EST Body Mass Index 25.98 09/24/2024 7:27 PM EST Plan of Treatment Health Maintenance Due Date Last Done Comments [facility]-Infant/Child/Adol SDOH Screenings 1965 [facility]-Hepatitis A Vaccines (1 of 2 - Risk 2-dose series) 02/24/1984 [facility]-Pneumococcal Vaccine: 50+ Years (1 of 2 - PCV) 02/24/1984 [facility]-DTaP,Tdap,and Td Vaccines (1 - Tdap) 10/09/1996 10/08/1996 CT Colonography 2010 Colonoscopy 2010 FIT-DNA 2010 FIT 2010 FOBT 2010 Sigmoidoscopy 2010 [facility]-Colorectal Cancer Screening 2010 [facility]-Zoster Vaccines (1 of 2) 2015 [facility]-Depression Screening 07/10/2024 07/10/2023 [facility]-RSV Vaccine: 60+ Years or (1 - Risk 60-74 years 1-dose series) 2025 [facility]- SDOH Screenings 03/27/2025 [facility]-Adult SDOH Screenings 03/27/2025 09/27/2024 [id number] Vaccine (2 - 2024- season) 2025 12/16/2020 [facility]-Influenza Vaccine (#1) 2025 [facility]-HIV Screening Completed 11/27/2023 [facility]-Obesity Intervention Completed 025, 11/27/2023, 07/10/2023 [facility]-Hepatitis C Screening Completed 2024, 11/28/2023, 11/27/2023, Additional history exists HPV Vaccines Aged Out No longer eligi ble based on patient's age to complete this topic [facility]-HIB Vaccines Aged Out No longer e ligible based on patient's age to complete this topic [facility]-IPV Vaccines Aged Out No longer e ligible based on patient's age to complete this topic [facility]-Rotavirus Vaccines Aged Out No lo nger eligible based on patient's age to complete this topic Procedures Procedure Name Priority Date/Time Associated Diagnosis Comments ACUTE HEPATITIS PANEL Routine 09/25/2024 4:59 PM EST ED HIV 1/2 ANTIBODY/ANTIGEN SCREEN WITH REFLEX TO HIV I/II DIFFERENTIATION STAT 11/27/2023 3:43 PM EDT from Last 3 Months or Most Recently Relevant to Health Maintenance Results * Acute Hepatitis Panel (09/25/2024 4:59 PM EST) Hepatitis B Surf Antigen Negative Negative 09/25/2024 8:39 PM EST [facility] Hepatitis C Antibody Negative Negative 09/25/2024 8:39 PM EST [facility] Hepatitis A Antibody IgM Negative Negative 09/25/2024 8:39 PM EST [facility] Hepatitis B Core Antibody IgM Negative Negative 09/25/2024 8:39 PM EST [facility] Blood Venous blood specimen / Unknown Venipuncture / Unknown 09/25/2024 4:59 PM EST 09/25/2024 5:04 PM EST us Wendy Welch MD LAB BLOOD ORDERABLES Final Re sult [facility] [address] [place] [address] * ED HIV 1/2 Antibody/Antigen Screen w/Reflex to HIV 1/2 Differentiation (11/27/2023 3:43 PM EDT) HIV 1 & 2 Antibody/Antigen Screen Non Reactive Non Reactive 11/27/2023 4:26 PM EDT [facility] Comment:Screening for HIV 1 & 2 antibodies, and P24 antigen is NONREACTIVE. No confirmatory testing is required. Blood Venous blood specimen / Unknown Venipuncture / Unknown 11/27/2023 3:43 PM EDT 11/27/2023 3:53 PM EDT Fatuma Cherry HUMAN RESOURCE STATISTICIAN LAB BLOOD ORDERABLES Final Result [facility] [address] [place] [address] from Last 3 Months or Most Recently Relevant to Health Maintenance Insurance ANTH Advance Directives * Full Code (Latest Code Status on File) Date Activated Date Inactivated Comments 09/24/2024 7:44 PM 09/30/2024 5:49 PM Question Answer Comments Patient has decision-making capacity? Yes * Full Code Date Activated Date Inactivated Comments 11/27/2023 6:29 PM 12/08/2023 8:43 PM Question Answer Comments Patient has decision-making capacity? Yes Care Teams Filling Technician Relationship Specialty Start Date End Date Salvador Alvarez MD [address] [place] [phone] PCP - General 12/15/20
[2025-04-30 17:52] LABS: INR 2.10 (0.9-1.1); Prothrombin Time 22.1 seconds (10.1-12.5)
[2025-04-30 18:00] LABS: Alanine Aminotransferase 67 U/L (12-78); Albumin Level 3.5 g/dl (3.5-5.0); Albumin/Globulin Ratio 0.9 (1.1-1.8); Alkaline Phosphatase 464 U/L (38-126); Anion Gap 16.1 mEq/L (5-15); Aspartate Amino Transferase 242 U/L (17-59); Bilirubin,Total 19.1 mg/dl (0.2-1.3); Blood Urea Nitrogen 11 mg/dl (9-20); Calcium 8.7 mg/dl (8.4-10.2); Carbon Dioxide 19 mmol/L (22.0-30.0); Chloride 103 mmol/L (98-107); Creatinine Clearance Estimated 80 mL/min (50-200); Creatinine,Serum 1.20 mg/dl (0.66-1.25); Estimated Glomerular Filt Rate 62 ml/min (>60); GFR (African American) 75 ML/MIN (>60); Globulin 4.0 g/dL (1.3-3.2); Glucose 112 mg/dl (74-100); Potassium 3.1 mmoL/L (3.5-5.1); Sodium 135 mmol/L (136-145); Total Protein,Serum 7.5 g/dl (6.3-8.2)
[2025-04-30] MEDS: diazePAM 10MG/2ML SYRINGE 10 MG IV (18:02)
[2025-04-30 18:11] LABS: Lipase 180 U/L (23-300)
[2025-04-30 18:17] LABS: Magnesium 1.4 mg/dl (1.6-2.3); Phosphorous 3.4 mg/dl (2.5-4.5)
--- NOTE | 2025-04-30 18:25 | PC.NURSE ---
attempted to have pt use urinal. pt was unable to give sample
[2025-04-30 18:43] LABS: Total Cells Counted 100
[2025-04-30 18:44] LABS: Anisocytosis 1+; Hypochromasia 1+; RBC Morphology Normal
[2025-04-30] MEDS: 0.9 % SODIUM CHLORIDE 50 ML VIAL IV (18:44)
[2025-04-30] MEDS: IOPAMIDOL-370 (76%);100ML BOTTLE 80 ML IV (18:45)
[2025-04-30] MEDS: SODIUM CHLORIDE 0.9% 10ML SYR (RAD ONLY) 10 ML IV (18:45)
[2025-04-30 19:32] LABS: Microscopic, Urine URINE MICROSCOPIC (MICROSCOPIC)
[2025-04-30 19:35] LABS: Color,Urine YELLOW (Yellow); Glucose,Urine (UA) Negative (Negative); Ketones,Urine Negative (Negative); Leukocyte Esterase,Urine Negative (Negative); PH,Urine 5.5 (5.0-8.5); Protein,Urine Negative (Negative); Specific Gravity, Urine <= 1.005 (1.005-1.030); Urobilinogen,Urine 0.2 EU/dl (0.2)
[2025-04-30] MEDS: THIAMINE 100MG TABLET 100 MG PO (19:35)
[2025-04-30] MEDS: FOLIC ACID 1MG TABLET 1 MG PO (19:35)
[2025-04-30 19:38] LABS: Bilirubin,Urine 3+ (Negative)
[2025-04-30 19:45] LABS: Squamous Epithelial Cell,Urine Occasional #/hpf (0-5)
[2025-04-30 19:48] LABS: Amphetamine/Metha Screen,Urine Negative ng/ml (<1000); Barbiturates Screen,Urine Negative ng/ml (<200)
[2025-04-30 19:49] LABS: Benzodiazepines Screen,Urine Negative ng/ml (<200)
[2025-04-30 19:51] LABS: Methadone Screen,Urine Negative ng/ml (<300)
[2025-04-30 19:52] LABS: Opiate Screen,Urine Negative ng/ml (<300); Phencyclidine Screen,Urine Negative ng/ml (<25)
[2025-04-30] MEDS: MAGNESIUM SULFATE IN WATER 2 GM/50 ML PIGGYBACK IV (20:58)
[2025-04-30] MEDS: 0.9 % SODIUM CHLORIDE 1000ML 1,000 ML 999 ML IV (20:59)
--- NOTE | 2025-04-30 21:03 | ECG_ITS ---
APPROVED REPORT Exam: Resting ECG HR:94 bpm ECG Measurements Heart Rate 94 AXES QRSd 114 QRS 83 QT 424 T 52 QTc 476 Conclusion SUPRAVENTRICULAR RHYTHM MODERATE INTRAVENTRICULAR CONDUCTION DELAY [110+ ms QRS DURATION] PROLONGED QT INTERVAL ABNORMAL ECG UNCONFIRMED REPORT Electronically signed by : MARSHALL NAVARRETE, 05/02/2025 23:05:43
[2025-04-30 21:15] LABS: Bilirubin,Direct 16.3 mg/dl (0.0-0.4)
--- NOTE | 2025-04-30 22:37 | PC.NURSE ---
Report called to IAN Pagan
--- NOTE | 2025-04-30 23:00 | P.HP_ITS ---
History of Present Illness *Admission Date: 04/30/25 *Reason for visit:: ETOH wothdrawal *History of present illness: 60 yo Patient with past medical history of diastolic heart dysfunction, hyperlipidemia, GERD, CAD, cirrhosis, alcohol use disorder, peripheral neuropathy, COPD, hypertension, pancreatic mass. Patient presents to hospital with alcohol withdrawal. Patient states he typically drinks 10 small bottles of manjinder el being liquor per day. Patient states he only had 1 bottle of gin being liquor today. Patient states last previous drink was Friday I had 4 little bottles of Manjinder el. Patient visibly shaking and sweating at time of my bedside evaluation emergency room, and states brought him to hospital for hallucinations. Admits to sweating heavily today. States he is drinking less because I am trying to quit. Admits to history of withdrawal symptoms, but denies withdrawal seizures. Records review shows previous hospitalization September 2024 for similar presentation. During that hospitalization patient ultimately transferred to for acute liver failure evaluation. Denies fevers, chills, shortness of breath, melena, medic easier, hematemesis, coffee-ground emesis, known sick contacts, recent travel. States he has history of EGD, but unable to remember exactly when it occurred. UDS negative, and blood alcohol level undetectable during ED evaluation. UA shows no signs of infection. CIWA score 30 in emergency room. [facility] Disclaimer: The information contained in this section may have been updated after the patient was seen, as this information can be updated by other users. Medical History Claudication Edema History of left heart catheterization Dyspnea on exertion Fatigue Mass of pancreas Tick bite Myalgia Acute liver failure Acute renal failure Jaundice Mass of pancreas Alcohol abuse Hypertriglyceridemia Coronary artery disease Cirrhosis Abnormal nuclear cardiac imaging test Rhabdomyolysis Gallstones Transaminitis Hyperuricemia Hepatic steatosis Rheumatoid factor positive Abnormal stress test SOB (shortness of breath) on exertion Primary hypertension Diastolic dysfunction Ex-smoker COPD (chronic obstructive pulmonary disease) GERD (gastroesophageal reflux disease) HLD (hyperlipidemia) HHD (hypertensive heart disease) Surgical History H/O heart artery stent H/O removal of cyst Tumor removal on back Family History Father Cancer of heart Mother Lung cancer Colon cancer Liver cancer Mother No problems noted. Social History Smoking Status: Current every day smoker tobacco type: cigarettes packs per day: 20 alcohol intake: former substance use type: denies use current occupational status: retired Travel in the last 8 weeks?: None household members: spouse caffeine: No Have you lived/traveled outside [place] in past 30 days?: No Contact w/someone who lives/traveled outside US past 30 days?: No Exposure to someone with infectious disease in past 14 days?: No Do you have a fever (greater than 100.4 F or 38 C)?: No Have you tested positive for COVID-19?: No Exposed to someone with COVID-19 in past 14 days?: No Do you have a sore throat?: No Do you have a cough?: No Do you have any weakness?: No Do you have any diarrhea?: No Are you experiencing any unusual bleeding?: No Do you have any muscle aches/pain?: No Do you have any abdominal pain?: No Are you experiencing loss of taste or smell?: No Other Medical History Have you received the Flu Vaccine for this season: No Have you received the Pneumonia Vaccine: No Review of Systems Review of Systems Review of systems (narrative): Pertinent systems reviewed and negative unless documented above in [facility] Meds Home Medications and Allergies Home Medications ?Medication ?Instructions ?Recorded ?Confirmed ?Type omeprazole 40 mg capsule,delayed 40 mg PO BID 03/25/22 01/13/25 History release albuterol sulfate 90 mcg/actuation 2 puff inhalation Q ID PRN asthma 07/06/24 01/13/25 History aerosol inhaler folic acid 1 mg tablet 1 mg PO DAILY #0 tabs 01/13/25 Rx ipratropium 0.5 mg-albuterol 3 mg 3 ml inhalation Q6HP PRN Shortness 09/24/24 01/13/25 Rx (2.5 mg base)/3 mL nebulization Of Breath #0 mL soln multivitamin with folic acid 400 1 tab PO 1700 #0 tabs 09/24/24 01/13/25 Rx mcg tablet (Tab-A-Saranya) diltiazem HCl 120 mg 120 mg PO QAM #90 caps 12/1301/13/25 Rx capsule,extended release 24 hr furosemide 40 mg tablet 40 mg PO DAILY PRN 12/13/24 01/13/25 History inclisiran 284 mg/1.5 mL 284 mg (1.5 mL) SQ I3HSWERS #1.5 mL 12/13/24 01/13/25 Rx subcutaneous syringe (Leqvio) potassium chloride 20 mEq 20 meq PO BID 12/13/2401/13 History tablet,extended release testosterone 30 mg/actuation (1.5 2 pump transdermal D AILY 12/13/24 01/13/25 History mL) transderm solution metered pump tramadol 50 mg tablet 50 mg PO Q6H PRN 01/13/25 History New Prescriptions to Start Prescriptions: Allergies Allergy/AdvReac Type Severity Reaction Status Date / Time atorvastatin AdvReac Severe Unknown Verified 01/13/25 08:52 allergy reaction isosorbide AdvReac Mild Headache Verified 01/13/25 08:52 Exam Data for Last 24 hours Vital signs and Labs for Last 24 Hours: Temp Pulse Resp BP Pulse Ox O2 Del Method O2 Flow Rate 98.6 F 74 16 115/71 93 L Room Air 2 04/30/25 22:26 04/30/25 22:26 04/30/25 22:26 04/30/25 22:26 04/30/25 22:26 04/30/25 22:26 04/30/25 19:24 Laboratory Results - last 24 hr 04/30/25 17:35: WBC 14.3 H, RBC 3.45 L, Hgb 12.2 L, Hct 34.3 L, MCV 99.4 H, MCH 35.4 H, MCHC 35.6 H, RDW 18.9 H, Plt Count 201, MPV 11.3 H, Neut % (Auto) 77.8, Lymph % (Auto) 9.6 L, [place] % (Auto) 10.8 H, Eos % (Auto) 0.3, Baso % (Auto) 0.3, Neut # (Auto) 11.2 H, Lymph # (Auto) 1.4, [place] # (Auto) 1.6 H, Eos # (Auto) 0.1, Baso # (Auto) 0.1, Total Counted 100, Neutrophils % (Manual) 76, Lymphocytes % (Manual) 11, Monocytes % (Manual) 12 H, Basophils % (Manual) 1, Platelet Estimate Normal, RBC Morphology Normal, Hypochromasia 1+, Anisocytosis 1+, PT 22.1 H, INR 2.10 H, Sodium 135 L, Potassium 3.1 L, Chloride 103, Carbon Dioxide 19 L, Anion Gap 16.1 H, BUN 11, Creatinine 1.20, Estimated Creat Clear 80, Estimated GFR 62, Est GFR ( Amer) 75, Glucose 112 H, Calcium 8.7, Phosphorus 3.4, Magnesium 1.4 L, Total Bilirubin 19.1 H*, Direct Bilirubin 16.3 H, AST 242 H, ALT 67, Alkaline Phosphatase 464 H, Total Protein 7.5, Albumin 3.5, Globulin 4.0 H, Albumin/Globulin Ratio 0.9 L, Lipase 180, Plasma/Serum Alcohol < 10, HIV Ag/Ab Combo Qual Negative 04/30/25 19:20: Urine Color Yellow, Urine Appearance Clear, Urine pH 5.5, Ur Specific [place] <= 1.005, Urine Protein Negative, Urine Glucose (UA) Negative, Urine Ketones Negative, Urine Blood Negative, Urine Nitrate Negative, Urine Bilirubin 3+ A, Urine Urobilinogen 0.2, Ur Leukocyte Esterase Negative, Urine RBC None, Urine WBC None, Ur Squamous Epith Cells Occasional, Urine Bacteria None, Urine Opiates Screen Negative, Urine Methadone Screen Negative, Ur Barbituates Screen Negative, Ur Phencyclidine Scrn Negative, Ur Amphetamines Screen Negative, U Benzodiazepines Scrn Negative, Urine Cocaine Screen Negative, U Marijuana (THC) Screen Negative I & O for Last 24 hours: Intake & Output 04/27/25 04/28/25 04/29/25 04/30/25 23:59 23:59 23:59 23:59 Weight 86.183 kg Constitutional Constitutional: moderate distress, diaphoretic and disheveled Comments: Extremely pleasant and cooperative during my ED assessment but disheveled, logan phoretic, and visibly shaking *Routine HEENT Exam Head: Present normocephalic Eye: Present EOMI, normal accommodation and conjunctival icterus ENT: Present mucous membranes dry *Routine Neck Exam Neck: Present supple and full ROM *Routine Respiratory Exam Respiratory: Present normal respiratory effort; Absent accessory muscle use *Routine Cardiovascular Exam Cardiovascular: Present tachycardia *Routine Abdominal Exam Abdominal: Present soft and normoactive bowel sounds; Absent rebound or guarding *Routine Rectal Exam Rectal:: deferred *Routine Genitalia Exam Genitalia:: deferred *Routine Extremities Exam Extremities: Present normal capillary refill *Routine Skin Exam Skin: Present intact and dry *Routine Neurological Exam Neurological: Present alert and oriented X3 Assessment and Plan *Assessment and plan (1) Alcohol withdrawal: Status: Acute Category: Medical Code(s): F10.939 - Alcohol use, unspecified with withdrawal, unspecified (2) Alcohol withdrawal syndrome: Status: Acute Category: Medical Code(s): F10.939 - Alcohol use, unspecified with withdrawal, unspecified (3) Cirrhosis: Status: Acute Category: Medical Code(s): K74.60 - Unspecified cirrhosis of liver (4) Hypokalemia: Status: Acute Category: Medical Code(s): E87.6 - Hypokalemia (5) Hypomagnesemia: Status: Acute Category: Medical Code(s): E83.42 - Hypomagnesemia (6) Chronic alcoholism: Status: Acute Category: Medical Code(s): F10.20 - Alcohol dependence, uncomplicated (7) Acute alcoholic hepatitis: Status: Acute Category: Medical Code(s): K70.10 - Alcoholic hepatitis without ascites (8) Jaundice: Status: Acute Category: Medical Code(s): R17 - Unspecified jaundice (9) COPD (chronic obstructive pulmonary disease): Status: Chronic Qualifiers: COPD type: unspecified COPD Qualified Code(s): J44.9 - Chronic obstructive pulmonary disease, unspecified Category: Medical Code(s): J44.9 - Chronic obstructive pulmonary disease, unspecified (10) GERD (gastroesophageal reflux disease): Status: Chronic Qualifiers: Esophagitis presence: esophagitis presence not specified Qualified Code(s): K21.9 - Gastro-esophageal reflux disease without esophagitis Category: Medical Code(s): K21.9 - Gastro-esophageal reflux disease without esophagitis (11) HLD (hyperlipidemia): Status: Chronic Qualifiers: Hyperlipidemia type: mixed hyperlipidemia Qualified Code(s): E78.2 - Mixed hyperlipidemia Category: Medical Code(s): E78.5 - Hyperlipidemia, unspecified (12) Coronary artery disease: Status: Chronic Qualifiers: Coronary Disease-Associated Artery/Lesion type: [place] artery [place] vs. transplanted heart: [place] heart Associated angina: without angina Qualified Code(s): I25.10 - Atherosclerotic heart disease of [place] coronary artery without angina pectoris Category: Medical Code(s): I25.10 - Atherosclerotic heart disease of [place] coronary artery without angina pectoris (13) Transaminitis: Status: Acute Category: Medical Code(s): R74.01 - Elevation of levels of liver transaminase levels Plan 60 yo Patient with past medical history of diastolic heart dysfunction, hyperlipidemia, GERD, CAD, cirrhosis, alcohol use disorder, peripheral neuropathy, COPD, hypertension, pancreatic mass. Patient previously admitted to this institution for alcohol withdrawal September 2024. Admitted for alcohol withdrawal with CIWA score 30 during ED evaluation. Problems as listed below. Alcohol withdrawal ?CIWA score extremely high at 30 at time of admission. Start CIWA protocol with IV valium 2 to 10 mg IV depending on CIWA scores. May potentially need Versed/Precedex gtt. for high CIWA scores. 125 cc/h normal saline with 40 KCL x 24 hours. Thiamine 100 mg p.o. daily. Folate 1 mg p.o. daily. Multivitamin 1 p.o. daily. Hypokalemia: Add 40 mEq KCl to maintenance IV fluids x 24 hours. Potassium 3.1 at time of admission likely due to heavy drinking. Hypomagnesia: Ordered 2 g IV magnesium sulfate at time of admission. GERD Protonix 40 mg IV daily Hyperlipidemia: Fasting lipid panel in a.m. hold statin overnight given elevated transaminases. CAD: Diltiazem 120 mg p.o. every morning COPD: Not on home oxygen at baseline. Oxygen as needed but patient on room air during my ED evaluation. DuoNebs 3 mL inhaled every 6 hours as needed SOB Hypertension: Hydralazine 10 mg IV every 6 as needed SBP greater than 160. No signs of aortic dissection on CTA done in the emergency room today. PPx Lovenox 40 mg subcu daily CODE STATUS: Full FEN: Start with clear liquid diet and advance as tolerated MDM ? I spoke with the emergency room doc about patient at time of hospital admission. ? Patient's severe alcohol withdrawal with CIWA at 30 poses risk to life and bodily function. ? Complicated medical patient with acute alcohol withdrawal and liver transaminase elevation issues. Patient also has chronic cirrhosis, GERD, ALISSA, diastolic heart dysfunction, peripheral neuropathy, COPD, hypertensive issues. ?Admit to ICU due to CIWA score 30 and high probability patient may require Precedex gtt., or Versed gtt. to control alcohol withdrawal symptoms. ? I reviewed patient's imaging/lab work listed above including: CTA chest: No PE, right apical pleural parenchymal scarring with dystrophic calcification, three-vessel coronary artery calcifications, mild upper lobe paraseptal emphysema, partially visualized cirrhosis and hepatic stenosis. Portable chest x-ray: No acute findings CT brain: No acute findings CT cervical spine: Moderate to severe DJD C3-4, C5 7, C6-C7 CT abdomen/pelvis: Moderate cirrhosis, moderate diffuse mesenteric edema, avascular necrosis right femoral head without femoral head flattening WBC 14.3, Hgb 12.2, platelet 201 PT 22.1, INR 12.1, NA 135, K3.1, CL 103, CO2 19, AG 16.1, BUN 11, CR 1.2, GLU 112 Phos 3.4, MAG 1.4 Total bili 19.1, direct bili 16.3, AST 242, ALT 62, alk phos 464, ALB 3.5 UA +3 bilirubin, negative ketone/nitrate/LE, no bacteria UDS negative, BAL <10 HIV negative I will repeat CMP, mag, BMP in a.m. 35 minutes of critical care time spent with patient by myself, James Graff MD, 04/30/2025 Discharge planning: Admit to ICU due to elevated CIWA scores. Patient will will spend at least 2 midnights in hospital during this hospital stay.
[2025-04-30] MEDS: 0.9% NaCl w/40mEq KCL 1,000 ML 125 ML IV (23:44)
[2025-04-30 23:47] LABS: Amphetamine/Metha Screen,Urine Negative ng/ml (<1000); Barbiturates Screen,Urine Negative ng/ml (<200)
[2025-04-30 23:48] LABS: Benzodiazepines Screen,Urine Negative ng/ml (<200)
[2025-04-30 23:50] LABS: Methadone Screen,Urine Negative ng/ml (<300); Opiate Screen,Urine Negative ng/ml (<300)
[2025-04-30 23:51] LABS: Phencyclidine Screen,Urine Negative ng/ml (<25)
[2025-04-30] MEDS: diazePAM 5MG TABLET 5 MG PO (23:51)
[2025-05-01] VITALS (37 sets, daily range): BP systolic 87–156; BP diastolic 48–101; PULSE 71–101; RESP 12–25; TEMP 36.4–37.1; O2SAT 88–100; BMI 30.5
[2025-05-01] MEDS: diazePAM 10MG/2ML SYRINGE 5 MG IV ×9 (00:54→22:45)
--- NOTE | 2025-05-01 02:16 | PC.NURSE ---
at 2255 when patient was in the room patient was asked if it was okay if staff obtained CRE Swab due to patient being icu status patient denied the swab at this time
--- NOTE | 2025-05-01 02:17 | PC.NURSE ---
patient arrived to the icu via wheelchair at [id number]
[2025-05-01 05:51] LABS: Hematocrit 32.4 % (42.0-52.0); Hemoglobin 11.1 g/dL (14.1-18.0); Immature Granulocytes % 1.3 %; Mean Corpuscular HGB Conc 34.3 g/dL (31.8-35.4); Mean Corpuscular Hemoglobin 34.5 pg (27.0-31.2); Mean Corpuscular Volume 100.6 fl (80-94); Nucleated Red Blood Cells % 0.2 %; Platelet Count 197 K/mm3 (142-424); Red Blood Count 3.22 M/mm3 (4.60-6.20); Red Cell Distribution Width-SD 69.3 fL; White Blood Count 12.6 K/mm3 (4.8-10.8)
[2025-05-01 06:11] LABS: Cholesterol 277 mg/dl (140-200); HDL Cholesterol 45 mg/dl (40-60); Triglycerides 325 mg/dl (30-150)
[2025-05-01 06:12] LABS: Alanine Aminotransferase 56 U/L (12-78); Albumin Level 3.0 g/dl (3.5-5.0); Albumin/Globulin Ratio 0.9 (1.1-1.8); Alkaline Phosphatase 385 U/L (38-126); Anion Gap 14.0 mEq/L (5-15); Aspartate Amino Transferase 203 U/L (17-59); Bilirubin,Total 18.2 mg/dl (0.2-1.3); Blood Urea Nitrogen 12 mg/dl (9-20); Calcium 7.9 mg/dl (8.4-10.2); Carbon Dioxide 19 mmol/L (22.0-30.0); Chloride 105 mmol/L (98-107); Creatinine Clearance Estimated 95 mL/min (50-200); Creatinine,Serum 1.10 mg/dl (0.66-1.25); Estimated Glomerular Filt Rate 68 ml/min (>60); GFR (African American) 83 ML/MIN (>60); Globulin 3.5 g/dL (1.3-3.2); Glucose 72 mg/dl (74-100); Magnesium 1.5 mg/dl (1.6-2.3); Phosphorous 4.1 mg/dl (2.5-4.5); Sodium 135 mmol/L (136-145); Total Protein,Serum 6.5 g/dl (6.3-8.2)
[2025-05-01 06:19] LABS: Potassium 3.0 mmoL/L (3.5-5.1)
--- NOTE | 2025-05-01 06:20 | PC.NURSE ---
Notified hospitalist about patients potassium level being 3.0. At this time patient is already on 40KcL so we are going to continue that.
[2025-05-01] MEDS: 0.9% NaCl w/40mEq KCL 1,000 ML 125 ML IV ×2 (07:28→18:00)
--- NOTE | 2025-05-01 08:16 | P.PN_ITS ---
Subjective *Date: 05/01/25 *Time: 13:39 Interval history: Severely jaundiced on exam. Still having tremor but able to answer questions appropriately. Denies nausea or vomiting. Reports he received a letter from transplant stating he probably would never be a candidate. This upset him and he went back to drinking after being sober for 2 to 3 months. States he was trying to quit at home but had severe symptoms. On room air at this time. Afebrile. Medical Exam Vital signs and Labs for Last 24 Hours: Vital Signs Temp Pulse Pulse Resp BP BP Pulse Ox 05/01/25 07:42 05/01/25 06:55 05/01/25 06:00 79 20 115/74 94 L 05/01/25 05:00 05/01/25 05:00 79 20 129/95 H 100 05/01/25 04:00 90 05/01/25 04:00 97.8 F 78 18 111/75 95 05/01/25 04:00 97.8 F 79 18 111/75 94 L 05/01/25 03:56 95 05/01/25 03:00 05/01/25 03:00 78 20 108/68 L 91 L 05/01/25 02:00 123/85 05/01/25 02:00 83 12 93 L 05/01/25 01:53 25 H 05/01/25 01:30 71 12 90 L 05/01/25 01:15 77 13 90 L 05/01/25 01:07 79 12 91/48 L 88 L 05/01/25 01:01 89/50 L 05/01/25 01:01 88 12 90 L 05/01/25 01:00 05/01/25 01:00 87/54 L 05/01/25 01:00 86 13 87/54 L 89 L 05/01/25 00:45 19 05/01/25 00:30 72 16 88 L 05/01/25 00:15 86 20 92 L 05/01/25 00:01 98.8 F 88 18 140/72 93 L 05/01/25 00:00 92 L 05/01/25 00:00 92 H 19 94 L 05/01/25 00:00 90 04/30/25 23:45 79 20 91 L 04/30/25 23:30 82 20 93 L 04/30/25 23:15 82 18 95 09/27/25 23:13 80 19 95 04/30/25 23:00 04/30/25 22:58 84 04/30/25 22:26 98.6 F 74 16 115/71 04/30/25 22:26 74 16 115/71 93 L 04/30/25 22:25 92 L 04/30/25 22:25 94 H 115/71 93 L 04/30/25 21:00 78 93 L 04/30/25 20:59 99 H 93 L 04/30/25 20:00 111/81 04/30/25 19:36 101 H 96 04/30/25 19:30 96 H 95 04/30/25 19:24 101 H 115/79 96 04/30/25 19:15 94 H 96 04/30/25 19:05 96 H 95 04/30/25 19:05 115/79 04/30/25 19:00 122/77 04/30/25 19:00 91 H 94 L 04/30/25 18:53 96 H 96 04/30/25 18:30 90 94 L 04/30/25 18:08 95 H 101/64 L 94 L 04/30/25 17:45 96 H 94 L 04/30/25 17:31 98.4 F 96 H 16 131/85 99 04/30/25 17:24 131/85 O2 Del Method O2 Flow Rate 05/01/25 07:42 Room Air 05/01/25 06:55 Room Air 05/01/25 06:00 Room Air 05/01/25 05:00 Nasal Cannula 2 05/01/25 05:00 Nasal Cannula 2 05/01/25 04:00 05/01/25 04:00 Nasal Cannula 2 05/01/25 04:00 Nasal Cannula 2 05/01/25 03:56 Nasal Cannula 2 05/01/25 03:00 Nasal Cannula 2 05/01/25 03:00 Nasal Cannula 2 05/01/25 02:00 05/01/25 02:00 05/01/25 01:53 05/01/25 01:30 05/01/25 01:15 05/01/25 01:07 05/01/25 01:01 05/01/25 01:01 05/01/25 01:00 Nasal Cannula 2 05/01/25 01:00 05/01/25 01:00 05/01/25 00:45 05/01/25 00:30 05/01/25 00:15 05/01/25 00:01 05/01/25 00:00 Room Air 05/01/25 00:00 05/01/25 00:00 04/30/25 23:45 04/30/25 23:30 04/30/25 23:15 04/30/25 23:13 04/30/25 23:00 Room Air 04/30/25 22:58 04/30/25 22:26 Room Air 04/30/25 22:26 Room Air 04/30/25 22:25 Room Air 04/30/25 22:25 04/30/25 21:00 04/30/25 20:59 04/30/25 20:00 04/30/25 19:36 04/30/25 19:30 04/30/25 19:24 Nasal Cannula 2 04/30/25 19:15 04/30/25 19:05 04/30/25 19:05 04/30/25 19:00 04/30/25 19:00 04/30/25 18:53 04/30/25 18:30 04/30/25 18:08 04/30/25 17:45 04/30/25 17:31 Room Air 04/30/25 17:24 Intake and Output 04/30/25 05/01/25 05/01/25 23:59 07:59 15:59 Intake Total 1150 / 1225 1101.667 / 1101.667 Output Total 950 / 950 Balance 1150 / 1175 151.667 / 151.667 Intake: Intake, Oral Amount 135 / 135 Intake, Total IV Amount 1150 / 1150 966.667 / 966.667 0.9 % Sodium Chloride 1000ML 1, 1000 / 1000 000 ml @ 999 mls/hr IV .Q1H1M ONE Rx#:[id number] 0.9% NaCl w/40mEq KCL 1,000 ml 966.667 / 966.667 @ 125 mls/hr IV .Q8H MALDONADO Rx#: [id number] KCl 20mEq/100ml 100 ml @ 50 mls 100 / 100 /hr IV Q2H MALDONADO Rx#:[id number] Magnesium Sulfate in Water 2 gm 50 / 50 In 50 ml @ 50 mls/hr IV ONCE ONE Rx#:[id number] Output: Output, Urine Amount 950 / 950 Other: Weight 94.347 kg 93.576 kg Patient Weight 05/01/25 23:59 Weight 93.576 kg Laboratory Results - last 24 hr 04/30/25 17:35: WBC 14.3 H, RBC 3.45 L, Hgb 12.2 L, Hct 34.3 L, MCV 99.4 H, MCH 35.4 H, MCHC 35.6 H, RDW 18.9 H, Plt Count 201, MPV 11.3 H, Neut % (Auto) 77.8, Lymph % (Auto) 9.6 L, [place] % (Auto) 10.8 H, Eos % (Auto) 0.3, Baso % (Auto) 0.3, Neut # (Auto) 11.2 H, Lymph # (Auto) 1.4, [place] # (Auto) 1.6 H, Eos # (Auto) 0.1, Baso # (Auto) 0.1, Total Counted 100, Neutrophils % (Manual) 76, Lymphocytes % (Manual) 11, Monocytes % (Manual) 12 H, Basophils % (Manual) 1, Platelet Estimate Normal, RBC Morphology Normal, Hypochromasia 1+, Anisocytosis 1+, PT 22.1 H, INR 2.10 H, Sodium 135 L, Potassium 3.1 L, Chloride 103, Carbon Dioxide 19 L, Anion Gap 16.1 H, BUN 11, Creatinine 1.20, Estimated Creat Clear 80, Estimated GFR 62, Est GFR ( Amer) 75, Glucose 112 H, Calcium 8.7, Phosphorus 3.4, Magnesium 1.4 L, Total Bilirubin 19.1 H*, Direct Bilirubin 16.3 H, AST 242 H, ALT 67, Alkaline Phosphatase 464 H, Total Protein 7.5, Albumin 3.5, Globulin 4.0 H, Albumin/Globulin Ratio 0.9 L, Lipase 180, Plasma/Serum Alcohol < 10, HIV Ag/Ab Combo Qual Negative 04/30/25 19:20: Urine Color Yellow, Urine Appearance Clear, Urine pH 5.5, Ur Specific [place] <= 1.005, Urine Protein Negative, Urine Glucose (UA) Negative, Urine Ketones Negative, Urine Blood Negative, Urine Nitrate Negative, Urine Bilirubin 3+ A, Urine Urobilinogen 0.2, Ur Leukocyte Esterase Negative, Urine RBC None, Urine WBC None, Ur Squamous Epith Cells Occasional, Urine Bacteria None, Urine Opiates Screen Negative 04/30/25 19:20: Urine Opiates Screen Negative, Urine Methadone Screen Negative 04/30/25 19:20: Urine Methadone Screen Negative, Ur Barbituates Screen Negative 04/30/25 19:20: Ur Barbituates Screen Negative, Ur Phencyclidine Scrn Negative 04/30/25 19:20: Ur Phencyclidine Scrn Negative, Ur Amphetamines Screen Negative 04/30/25 19:20: Ur Amphetamines Screen Negative, U Benzodiazepines Scrn Negative 04/30/25 19:20: U Benzodiazepines Scrn Negative, Urine Cocaine Screen Negative 04/30/25 19:20: Urine Cocaine Screen Negative, U Marijuana (THC) Screen Negative 04/30/25 19:20: U Marijuana (THC) Screen Negative 05/01/25 05:18: WBC 12.6 H, RBC 3.22 L, Hgb 11.1 L, Hct 32.4 L, MCV 100.6 H, MCH 34.5 H, MCHC 34.3, RDW 19.0 H, Plt Count 197, MPV 11.0 H, Neut % (Auto) 73.4, Lymph % (Auto) 12.8, [place] % (Auto) 10.5 H, Eos % (Auto) 1.4, Baso % (Auto) 0.6, Neut # (Auto) 9.3 H, Lymph # (Auto) 1.6, [place] # (Auto) 1.3 H, Eos # (Auto) 0.2, Baso # (Auto) 0.1, Sodium 135 L, Potassium 3.0 L, Chloride 105, Carbon Dioxide 19 L, Anion Gap 14.0, BUN 12, Creatinine 1.10, Estimated Creat Clear 95, Estimated GFR 68, Est GFR ( Amer) 83, Glucose 72 L D, Calcium 7.9 L, Phosphorus 4.1, Magnesium 1.5 L, Total Bilirubin 18.2 H*, AST 203 H, ALT 56, Alkaline Phosphatase 385 H, Total Protein 6.5, Albumin 3.0 L D, Globulin 3.5 H, Albumin/Globulin Ratio 0.9 L, Triglycerides 325 H, Cholesterol 277 H, LDL Cholesterol Direct 100.72, VLDL Cholesterol 65 H, HDL Cholesterol 45, Cholesterol/HDL Ratio 6.2 H I & O for Labs for Last 24 Hours: Intake & Output 04/28/25 04/29/25 04/30/25 05/01/25 23:59 23:59 23:59 23:59 Intake Total 1150 / 1225 1101.667 / 1101.667 Output Total 950 / 950 Balance 1150 / 1175 151.667 / 151.667 Weight 94.347 kg 93.576 kg Constitutional: Present moderate distress, average body habitus, chronically ill appearing and cooperative Head: Present atraumatic and normocephalic ENT: Present normal exam Comment:: Scleral icterus Respiratory: Present normal respiratory effort; Absent rhonchi, wheezes or crackles Cardiac: Present Reg Rate and Rhythm GI: Present soft, tenderness (Mild diffuse right hemiabdomen) and normal bowel sounds; Absent distention Extremities: Present normal inspection and full ROM Skin: Present intact and jaundice; Absent erythema Neuro: Present Grossly Intact, alert, awake, oriented x 3 and moves all ex tremities Comment:: Tremors Assessment and Plan *Assessment and plan (1) Alcohol withdrawal: Status: Acute Category: Medical Code(s): F10.939 - Alcohol use, unspecified with withdrawal, unspecified (2) Alcohol withdrawal syndrome: Status: Acute Category: Medical Code(s): F10.939 - Alcohol use, unspecified with withdrawal, unspecified (3) Cirrhosis: Status: Acute Category: Medical Code(s): K74.60 - Unspecified cirrhosis of liver (4) Hypokalemia: Status: Acute Category: Medical Code(s): E87.6 - Hypokalemia (5) Hypomagnesemia: Status: Acute Category: Medical Code(s): E83.42 - Hypomagnesemia (6) Chronic alcoholism: Status: Acute Category: Medical Code(s): F10.20 - Alcohol dependence, uncomplicated (7) Acute alcoholic hepatitis: Status: Acute Category: Medical Code(s): K70.10 - Alcoholic hepatitis without ascites (8) Jaundice: Status: Acute Category: Medical Code(s): R17 - Unspecified jaundice (9) COPD (chronic obstructive pulmonary disease): Status: Chronic Qualifiers: COPD type: unspecified COPD Qualified Code(s): J44.9 - Chronic obstructive pulmonary disease, unspecified Category: Medical Code(s): J44.9 - Chronic obstructive pulmonary disease, unspecified (10) GERD (gastroesophageal reflux disease): Status: Chronic Qualifiers: Esophagitis presence: esophagitis presence not specified Qualified Code(s): K21.9 - Gastro-esophageal reflux disease without esophagitis Category: Medical Code(s): K21.9 - Gastro-esophageal reflux disease without esophagitis (11) HLD (hyperlipidemia): Status: Chronic Qualifiers: Hyperlipidemia type: mixed hyperlipidemia Qualified Code(s): E78.2 - Mixed hyperlipidemia Category: Medical Code(s): E78.5 - Hyperlipidemia, unspecified (12) Coronary artery disease: Status: Chronic Qualifiers: Associated angina: without angina Coronary Disease-Associated Artery/Lesion type: [place] artery [place] vs. transplanted heart: [place] heart Qualified Code(s): I25.10 - Atherosclerotic heart disease of [place] coronary art jayla without angina pectoris Category: Medical Code(s): I25.10 - Atherosclerotic heart disease of [place] coronary artery without angina pectoris (13) Transaminitis: Status: Acute Category: Medical Code(s): R74.01 - Elevation of levels of liver transaminase levels (14) Coagulopathy: Problem Comment: Due to liver injury Status: Acute Category: Medical Code(s): D68.9 - Coagulation defect, unspecified Plan 60 yo Patient with past medical history of diastolic heart dysfunction, hyperlipidemia, GERD, CAD, cirrhosis, alcohol use disorder, peripheral neuropathy, COPD, hypertension, pancreatic mass. Patient previously admitted to this institution for alcohol withdrawal September 2024. Admitted for alcohol withdrawal with CIWA score 30 during ED evaluation. Found to have alcoholic hepatitis. MELD score of 29, Maddrey's discriminant function of 68, Child-Pop class C. Patient previously referred to transplant service at , not a candidate at this time due to his continued alcohol consumption. High risk for decompensation given his acute liver injury/failure. Necessitating ICU level of care. Problems as listed below. Alcohol withdrawal Alcoholic hepatitis ?CIWA score extremely high at 30 at time of admission. - Continue CIWA protocol, Valium per protocol. Monitor for toxicity. - Continue NS at 125 cc/h normal saline with 40 KCL x 24 hours. - Thiamine 100 mg p.o. daily. Folate 1 mg p.o. daily. Multivitamin 1 p.o. daily. MELD score of 29, 20% 3-month mortality risk Child-Pop class C Maddrey's discriminant function score of 68. Will initiate acetylcysteine orally today. Initiate methylprednisolone IV 32 mg daily starting in the morning. - GI consulted to evaluate in the morning. - Liver enzymes abnormal with bilirubin 18.2, AST 203, ALT 56, alk phos 385. Hypokalemia: Potassium 3.0 this morning, replace per protocol Hypomagnesia: Magnesium 1.5, replace per protocol GERD Protonix 40 mg IV daily Hyperlipidemia: Fasting lipid panel in a.m. hold statin overnight given elevated transaminases. CAD: Diltiazem 120 mg p.o. every morning COPD: Not on home oxygen at baseline. Oxygen as needed but patient on room air during my ED evaluation. DuoNebs 3 mL inhaled every 6 hours as needed SOB Hypertension: Hydralazine 10 mg IV every 6 as needed SBP greater than 160. No signs of aortic dissection on CTA done in the emergency room today. Coagulopathy: Secondary to liver injury and decreased production of coagulation factors and nutritional deficiency from alcoholism. Will administer vitamin K 10 mg IV once. Repeat INR ordered for the morning. INR elevated on admission at 2.1 SCDs for DVT prophylaxis given coagulopathy Full code Regular diet ICU/Critical care attestation This patient is critically ill with 35 minutes devoted solely to this patient managing life/organ supporting interventions that required physician assessment. This includes time spent making adjustments in ventilator settings, IV fluid administration, titration of pressors, adjustments of medications, discussion of patient with consultants and other care providers as well as updating patient and/or family (if patient by virtue of his/her condition is unable to participate in decision making). This does not include time spent performing separately billed procedures. Time is not concurrent with that of other providers.
[2025-05-01] MEDS: MAGNESIUM SULFATE IN WATER 2 GM/50 ML PIGGYBACK IV ×2 (09:04→09:55)
[2025-05-01] MEDS: ACETYLCYSTEINE 20% 30ML BOTTLE 13160 MG PO (09:07)
[2025-05-01] MEDS: dilTIAZem ER 120MG CAPSULE 120 MG PO (09:09)
[2025-05-01] MEDS: THIAMINE 100MG TABLET 100 MG PO (09:17)
[2025-05-01] MEDS: FOLIC ACID 1MG TABLET 1 MG PO (09:17)
--- NOTE | 2025-05-01 09:22 | PC.NURSE ---
pt is more alert and appropriate @ this time. is @ bedside
--- NOTE | 2025-05-01 11:47 | PC.NURSE ---
Notified Karl in Physical therapy that pt has PT/OT consult. pt will have pt/ot consult in am. [id number]
[2025-05-01 12:01] LABS: Potassium 3.1 mmoL/L (3.5-5.1)
--- OUTSIDE RECORDS SUMMARY | 2025-05-01 12:04 | XMS_ITS | Patient Health Record ---
[facility] Organization [facility] Address [address] [id number] Care Team Providers Care Airport Security Screener Name Role Phone Tobin Alvarez Primary Care Provider [phone] Salvador Herrera Unavailable [phone] Allergies No Known Allergies Results Component Value [...] Interpretation:Abnormal Performing Lab: Notes/Report: Test performed by [facility] [address] [facility] , [address], [place] [address] Momo Renteria MD, Golf Cart Maker CLIA: [id number] Sodium 131 135-145 mmol/L Potassium 3.4 3.5-5.3 [...] Interpretation: Performing Lab: Notes/Report: Test performed by [facility] [address] [place], [place] [address] , [place] [address] Momo Renteria MD, Golf Cart Maker CLIA: [id number] Sodium 136 135-145 mmol/L Potassium 3.6 3.5-5.3 [...] Interpretation: Performing Lab: Notes/Report: Test performed by [facility] [address] [place], [place] [address] , [address], [place] [address] Momo Renteria MD, Golf Cart Maker CLIA: [id number] Magnesium 2.0 1.6-2.4 mg/dL P-Phosphorus Reviewed date:10/26/2024 09:02:42 AM Interpretation: Performing Lab: Notes/Report: Test performed by [facility] [address] [place], [place] [address] [place] , [address], [place] [address] Momo Renteria MD, Golf Cart Maker CLIA: [id number] Phosphorus 1.9 2.5-4.5 mg/dL Influenza Screen (in house) Reviewed date:06/03/2024 11:02:28 [...] Interpretation:Negative Performing Lab: Notes/Report: Negative Result: neg CBC Venipuncture (in house) Reviewed date:09/13/2024 02:15:53 [...] Interpretation: Performing Lab: Notes/Report: Test performed by [facility] [address] [place], [place] [address], [place] [address] Momo Renteria MD, Golf Cart Maker CLIA: [id number] Vitamin B12 312 066-8010 pg/mL P-Comprehensive Metabolic Pa emily (CMP) Reviewed date:09/13/2024 02:15:53 PM Interpretation: Performing Lab: Notes/Report: Test performed by [facility] [address] [place] [address] [address], [place] [address] Momo Renteria MD, Golf Cart Maker CLIA: [id number] Sodium 136 135-145 mmol/L Potassium 3.3 3.5-5.3 [...] Interpretation: Performing Lab: Notes/Report: Test performed by [facility] [address] [place] [address] , [address], [place] [address] Momo Renteria MD, Golf Cart Maker CLIA: [id number] Magnesium 1.5 1.6-2.4 mg/dL P-PSA Reviewed date:09/13/2024 02:15:53 PM Interpretation: Performing Lab: Notes/Report: Test performed by [facility] [address] [place] [address] , [address], [place] [address] Momo Renteria MD, Golf Cart Maker CLIA: [id number] PSA 1.40 <4.00 ng/mL Please note this is an ultrasensitive PSA assay with a lower limit of detection of 0.014 ng/mL. This test is performed by the Esa ECLIA methodology. Values obtained with different assay methods or kits cannot be directly compared. P-TSH Reviewed date:09/13/2024 02:15:53 PM Interpretation: Performing Lab: Notes/Report: Test performed by [facility] [address] [place] [address] , [address], [place] [address] Momo Renteria MD, Golf Cart Maker CLIA: [id number] TSH 2.30 0.43-5.25 mU/L P-Vitamin D 1,25-Dihydroxy a nd 25-Hydroxy Reviewed date:09/13/2024 02:15:53 PM Interpretation: Performing Lab: Notes/Report: Test performed by [facility] [address] [place] [address] , [address], [place] [address] Momo Renteria MD, Golf Cart Maker CLIA: [id number] Vitamin D 25-Hydroxy 20.7 30.0-100.0 ng/mL Interpretation [...] MG 1 cap(s) twice daily Active Tiotropium [place] Monohydrate 2.5 MCG/ACT 2 puffs Inhalation Once [...] W/U Status Risk Notes Problem Coronary arteriosclerosis (59337913) ASCVD (arteriosclerotic cardiovascular disease) (I25.10) Active confirmed Problem Hypertension (92455367) HTN (hypertension) (I10) Active confirmed Problem COPD - Chronic obstructive pulmonary disease (18349154) COPD (chronic obstructive pulmonary disease) (J44.9) Active confirmed Problem Hyperuricemia (30902094) Hyperuricemia (E79.0) Active confirmed Problem Acute exacerbation of chronic obstructive airways disease (635832700) COPD exacerbation (J44.1) Active confirmed Problem Peripheral neuropathy (831641492) Peripheral neuropathy (G62.9) Active confirmed Problem Rheumatoid factor positive (748624822) Rheumatoid factor positive (R76.8) Active confirmed Problem Alcohol abuse (22611069) Alcohol abuse (F10.10) Active confirmed Problem Acute alcoholic liver disease (5265417) Alcoholic hepatitis without ascites (K70.10) Active confirmed Problem Degeneration of cervical intervertebral disc (24779367) Degenerative disc disease, cervical (M50.30) Active confirmed Problem Gastroesophageal reflux disease with esophagitis (328114174) Gastroesophageal reflux disease with esophagitis (K21.0) Active confirmed Problem Cirrhosis of liver (05924619) Cirrhosis of liver (K74.60) Active confirmed Problem Hypophosphatemia (5152988) Hypophosphatemia (E83.39) Active confirmed Problem Dyslipidemia (681967737) Dyslipidemia (E78.5) Active confirmed Problem Hypotestosteronism (3261121254389) Hypotestosteronism (E29.1) Active confirmed Problem Skin sensation disturbance (09092154) Paresthesia of foot, bilateral (R20.2) Active confirmed Problem Steatosis of liver (634336043) Hepatic steatosis (K76.0) Active confirmed Problem Gallstones (542165298) Gallstones (K80.20) Active confirmed Problem Seasonal allergic rhinitis (258678136) Seasonal allergic rhinitis, unspecified trigger (J30.2) Active confirmed Vital Signs Heart Rate 108 /min 10/21/2024 Blood pressure diastolic 60 mm Hg 10/21/2024 Height 70 in 10/21/2024 Blood pressure systolic 112 mm Hg 10/21/2024 Weight 190.2 lbs 10/21/2024 BMI 27.29 kg/m2 10/21/2024 Encounters Encounter Location Date Provider Diagnosis [address] [id number] 06/03/2024 R Inderjit Antonio Acute bronchitis due to Hemophilus influenzae J20.[address] [id number] 09/09/2024 R Inderjit Antonio Fatigue R53.83 ; Jau ndice R17 ; Cirrhosis of liver K74.60 ; COPD (chronic obstructive pulmonary disease) J44.9 ; Alcohol abuse F10.10 ; Alcoholic hepatitis without ascites K70.10 ; Peripheral neuropathy G62.9 ; Screening for prostate cancer Z12.5 ; HTN (hypertension) I10 ; Tobacco abuse Z72.0 and Screening for diabetes mellitus Z13.[address] [id number] 10/12/2024 R Inderjit Antonio Hiccups R06.6 ; Alco holic hepatitis without ascites K70.10 and Cirrhosis of liver K74.[address] [id number] 10/21/2024 R Inderjit Antonio Leg edema R60.0 ; HT N (hypertension) I10 ; Hypophosphatemia E83.39 and Leg pain M79.606 [place] [id number] [place], [place] [id number] 07/15/2024 R Inderjit Antonio [facility] [address] [place], [place] [id number] 07/15/2024 R Inderjit Antonio Dorsalgia, unspecifi ed M54.9 ; Other chronic pain G89.29 ; Pain in left leg M79.605 and Pain in right leg M79.604 [facility] [address] [place], [place] [id number] 09/10/2024 R Inderjit Antonio [facility] [address] [place] [id number] 09/14/2024 R Inderjit Antonio [facility] [address] [place] [id number] 10/01/2024 R Inderjit Antonio [facility] [address] [place] [id number] 10/05/2024 R Inderjit Antonio [facility] [address] [place] [id number] 10/07/2024 R Inderjit Antonio [facility] [address] [place], [place] [id number] 10/13/2024 R Inderjit Antonio [facility] [address] [place], [place] [id number] 10/26/2024 R Inderjit Antonio [facility] [address] [place], [place] [id number] 10/27/2024 R Inderjit Antonio [facility] [address] [place], [place] [id number] 11/05/2024 R Inderjit Antonio Leg pain M79.606 [facility] [address] [place], [place] [id number] 11/12/2024 R Inderjit Antonio [facility] [address] [place], [place] [id number] 11/25/2024 R Inderjit [place] Hiccups R06.6 [facility] [address] [facility] [address] [facility] [address] [place] [id number] 12/21/2024 [place] Leg pain M79.606 [facility] [address] [facility] [address] [facility] [address] [place] [id number] 03/08/2025 R Inderjit [place] Leg pain M79.606 [facility] [address] [place] [id number] 04/29/2025 R Inderjit Ch[place]et Assessments Encounter Date Diagnosis (ICD Code) Assessment Notes Treatment Notes Treatment Clinical Notes Section Notes 06/03/2024 Acute bronchitis due to Hemophilus influenzae (ICD-10 - J20.1) 07/15/2024 Dorsalgia, unspecified (ICD-10 - M54.9) 09/09/2024 Fatigue (ICD-10 - R53.83) 09/09/2024 Jaundice (ICD-10 - R17) 10/12/2024 Alcoholic hepatitis without ascites (ICD-10 - K70.10) 10/12/2024 Hiccups (ICD-10 - R06.6) 10/21/2024 HTN (hypertension) (ICD-10 - I10) 10/21/2024 Leg edema (ICD-10 - R60.0) 11/05/2024 Leg pain (ICD-10 - M79.606) 11/25/2024 Hiccups (ICD-10 - R06.6) 12/21/2024 Leg pain (ICD-10 - M79.606) 03/08/2025 Leg pain (ICD-10 - M79.606) 09/09/2024 Cirrhosis of liver (ICD-10 - K74.60) Keep appointment with GI next week for colonoscopy 10/21/2024 Hypophosphatemia (ICD-10 - E83.39) 10/12/2024 Cirrhosis of liver (ICD-10 - K74.60) Keep follow-up with Hepatology clinic at 07/15/2024 Other chronic pain (ICD-10 - G89.29) 07/15/2024 Pain in left leg (ICD-10 - M79.605) 09/09/2024 COPD (chronic obstructive pulmonary disease) (ICD-10 - J44.9) He needs a pulmonology consultation and has already been referred to Dr. Motta by cardiology. He is provided a month supply of Trelegy samples to resume pending pulmonology consultation. 10/21/2024 Leg pain (ICD-10 - M79.606) 09/09/2024 Alcohol abuse (ICD-10 - F10.10) 07/15/2024 Pain in right leg (ICD-10 - M79.604) 09/09/2024 Alcoholic hepatitis without ascites (ICD-10 - [...] Coverage Start Date Coverage End Date [facility] [address] [place] [address] [id number] ANA LILIA LIU Self - patient [...]
--- OUTSIDE RECORDS SUMMARY | 2025-05-01 12:04 | XMS_ITS | Patient Health Record ---
Author Organization [facility] Address [address] [facility] [address] [place] [phone] Care Team Providers Care Sat Act Instructor Name Role Phone Tobin Alvarez Unavailable [phone] Reason For Referral No Information Medications Medication SIG (Take, Route, Fr equency, Duration) Notes Start Date End Date Status Loratadine 10 MG 1 tab(s) orally once a day; Duration: 90 Active Plavix 75 MG 1 tab(s) orally once a day; Duration: 30 day(s) Active Encounters Encounter Location Date Provider Diagnosis [facility] [address] [facility] [address] [place] [id number] 11/05/2024 Tobin Alvarez Plan Of Treatment No Information
--- OUTSIDE RECORDS SUMMARY | 2025-05-01 12:04 | XMS_ITS | Clinical Summary ---
Author Organization [facility] [place] Address [address] [place] [address] Care Team Providers Care Orthopedic Surgeon Name Role Phone Salvador Alvarez MD Primary Care Provider [phone] Allergies Active Allergy Reactions Criticality Noted Date [...] mg) by mouth daily. 5 Active Tiotropium Fenton Monohydrate (Spiriva Respimat) 2.5 MCG/ACT inhaler Inhale 2 puffs daily. 4 g 1 5 Active rOPINIRole (Requip) 0.5 MG tabletIndication s:Restless Leg Syndrome Take 1 tablet (0.5 mg) by mouth nightly. 30 tablet 5 Active Active Problems Problem Noted Date Diagnosed Date Decompensated hepatic cirrhosis 09/24/2024 Alcoholic hepatitis 12/05/2023 Rhabdomyolysis 12/05/2023 Alcoholism 12/05/2023 Simple chronic bronchitis 12/05/2023 Coronary artery disease invo lving tribe coronary artery of tribe heart without angina pectoris 12/05/2023 Resolved Problems [...] place to sleep or slept in a fpc (including now)? No 11/28/2023 Housing Stability Vital Sign Answer Richard e Recorded In the last 12 months, was t here a time when you were not able to pay the mortgage or rent on time? No 09/27/2024 Number of Times Moved in the Last Year Not on fi le 09/27/2024 At any time in the past 12 m [facility], were you homeless or living in a fpc (including now)? No 09/27/2024 CAGE ASSESSMENT Answer [...] drink first t carolyn in the morning (EYE-INFORMATICS COORDINATOR) to steady your nerves or to get [...] Screenings 03/27/2025 UKY-Adult SDOH Screenings 03/27/2025 09/27/2024 [id number] Vaccine (2 - 2024- season) 2025 12/16/2020 [...] Antigen Negative Negative 09/25/2024 8:39 PM EST [facility] Hepatitis C Antibody Negative Negative 09/25/2024 8:39 PM EST [facility] Hepatitis A Antibody IgM Negative Negative 09/25/2024 8:39 PM EST [facility] Hepatitis B Core Antibody IgM Negative Negative 09/25/2024 8:39 PM EST [facility] Blood Venous blood specimen / Unknown Venipuncture / Unknown 09/25/2024 4:59 PM EST 09/25/2024 5:04 PM EST us Wendy Welch MD LAB BLOOD ORDERABLES Final Re sult [facility] [address] [place] [address] * ED HIV 1/2 Antibody/Antigen Screen w/Reflex to HIV 1/2 Differentiation (11/27/2023 3:43 PM EDT) HIV 1 & 2 Antibody/Antigen Screen Non Reactive Non Reactive 11/27/2023 4:26 PM EDT [facility] Comment:Screening for HIV 1 & 2 antibodies, and P24 antigen is NONREACTIVE. No confirmatory testing is required. Blood Venous blood specimen / Unknown Venipuncture / Unknown 11/27/2023 3:43 PM EDT 11/27/2023 3:53 PM EDT Fatuma Cherry HAT STOCK LAMINATING MACHINE OPERATOR LAB BLOOD ORDERABLES Final Result [facility] [address] [place] [address] from Last 3 Months or Most Recently [...] Patient has decision-making capacity? Yes Care Teams Orthopedic Surgeon Relationship Specialty Start Date End Date Salvador Alvarez MD [address] [place] [id number] PCP - General 12/15/20
[2025-05-01] MEDS: ACETYLCYSTEINE 20% 30ML BOTTLE 6000 MG PO ×3 (12:57→20:26)
[2025-05-01] MEDS: PHYTONADIONE 10 MG in 0.9 % SODIUM CHLORIDE 50 ML 100 MG IV (13:56)
--- NOTE | 2025-05-01 14:29 | PC.NURSE ---
pt has had multiple episodes of diarrhea.
[2025-05-01] MEDS: MULTIVITAMIN TABLET 1 EACH PO (16:48)
[2025-05-01] MEDS: PANTOPRAZOLE 40MG VIAL 40 MG IV (20:27)
[2025-05-02] VITALS (31 sets, daily range): BP systolic 96–159; BP diastolic 50–99; PULSE 90–115; RESP 13–21; TEMP 36.8–37.1; O2SAT 92–97; BMI 30.7
[2025-05-02] MEDS: ACETYLCYSTEINE 20% 30ML BOTTLE 6000 MG PO ×4 (01:52→14:06)
[2025-05-02] MEDS: ACETAMINOPHEN 325MG TAB 650 MG PO (03:28)
[2025-05-02] MEDS: diazePAM 10MG/2ML SYRINGE 5 MG IV (03:29)
[2025-05-02 06:15] LABS: Hematocrit 32.5 % (42.0-52.0); Hemoglobin 11.3 g/dL (14.1-18.0); Immature Granulocytes % 2.0 %; Mean Corpuscular HGB Conc 34.8 g/dL (31.8-35.4); Mean Corpuscular Hemoglobin 35.4 pg (27.0-31.2); Mean Corpuscular Volume 101.9 fl (80-94); Nucleated Red Blood Cells % 0.3 %; Platelet Count 226 K/mm3 (142-424); Red Blood Count 3.19 M/mm3 (4.60-6.20); Red Cell Distribution Width-SD 69.8 fL; White Blood Count 15.4 K/mm3 (4.8-10.8)
[2025-05-02 06:16] LABS: INR 1.34 (0.9-1.1); Prothrombin Time 14.6 seconds (10.1-12.5)
[2025-05-02 06:18] LABS: Alanine Aminotransferase 55 U/L (12-78); Albumin Level 2.9 g/dl (3.5-5.0); Albumin/Globulin Ratio 0.7 (1.1-1.8); Alkaline Phosphatase 363 U/L (38-126); Anion Gap 14.8 mEq/L (5-15); Aspartate Amino Transferase 177 U/L (17-59); Bilirubin,Total 21.2 mg/dl (0.2-1.3); Blood Urea Nitrogen 9 mg/dl (9-20); Calcium 7.7 mg/dl (8.4-10.2); Carbon Dioxide 18 mmol/L (22.0-30.0); Chloride 109 mmol/L (98-107); Creatinine Clearance Estimated 116 mL/min (50-200); Creatinine,Serum 0.90 mg/dl (0.66-1.25); Estimated Glomerular Filt Rate 86 ml/min (>60); GFR (African American) 104 ML/MIN (>60); Globulin 3.9 g/dL (1.3-3.2); Glucose 92 mg/dl (74-100); Magnesium 1.9 mg/dl (1.6-2.3); Phosphorous 2.6 mg/dl (2.5-4.5); Sodium 139 mmol/L (136-145); Total Protein,Serum 6.8 g/dl (6.3-8.2)
[2025-05-02 06:30] LABS: Potassium 2.8 mmoL/L (3.5-5.1)
[2025-05-02 07:34] LABS: Total Cells Counted 100
[2025-05-02 07:35] LABS: Macrocytosis 1+
--- NOTE | 2025-05-02 07:52 | PC.NURSE ---
Called Hospitalist to get patient ibuprofen for headache he is going to order Toradol for it
[2025-05-02] MEDS: POTASSIUM CHLORIDE 20MEQ TAB 40 MEQ PO ×3 (07:56→14:06)
[2025-05-02] MEDS: KETOROLAC 30MG/ML VIAL 30 MG IV (07:58)
--- NOTE | 2025-05-02 08:29 | US_ITS ---
FINAL REPORT TECHNIQUE: Multiple transverse and longitudinal scans were performed of the right upper quadrant of the abdomen. CLINICAL HISTORY: Hepatitis COMPARISON: None FINDINGS: HEPATIC ULTRASOUND The liver is enlarged and coarse appearing probably due to fatty infiltration. No intrahepatic duct dilatation is identified. No evidence of common bile duct dilatation is identified. Doppler exam shows normal directional flow within patent hepatic and portal veins. The gallbladder wall is mildly thickened at 4 mm. No gallstones are seen. There is a trace amount of pericholecystic fluid. IMPRESSION: Fatty liver. Mild gallbladder wall thickening with trace pericholecystic fluid. Reviewed, Interpreted and Dictated by Sushil Ivey MD Transcribed by Jenni Oquendo Authenticated and [facility]
--- NOTE | 2025-05-02 09:20 | HMH.OTEV ---
OT Evaluation Rehab OT IP Evaluation Start: 05/01/25 00:09 Freq: ONCE Status: Active Protocol: Document 05/02/25 09:09 MATTIE (Rec: 05/02/25 09:20 MATTIE [id number]) Rehab OT IP Assessment Subjective History 60 yo Patient with past medical history of diastolic heart dysfunction, hyperlipidemia, GERD, CAD, cirrhosis , alcohol use disorder, peripheral neuropathy, COPD, hypertension, pancreatic mass. Patient presents to hospital with alcohol withdrawal. Patient states he typically drinks 10 small bottles of manjinder el being liquor per day. Patient states he only had 1 bottle of gin being liquor today. Patient states last previous drink was Friday I had 4 little bottles of Manjinder el. Patient visibly shaking and sweating at time of my bedside evaluation emergency room, and states brought him to hospital for hallucinations. Admits to sweating heavily today. States he is drinking less because I am trying to quit. Admits to history of withdrawal symptoms, but denies withdrawal seizures. Records review shows previous hospitalization September 2024 for similar presentation. During that hospitalization patient ultimately transferred to for acute liver failure evaluation. Denies fevers, chills, shortness of breath, melena, medic easier, hematemesis, coffee-ground emesis, known sick contacts, recent travel. States he has history of EGD, but unable to remember exactly when it occurred. UDS negative, and blood alcohol level undetectable during ED evaluation. UA shows no signs of infection. CIWA score 30 in emergency room. Patient lives at home with his . 1 story level. 1 KEITH. Independent with ADLs and fx'l mobility prior to hospitalization. Used a RW to ambulate. Subjective I need a walker to get up. Instructed patient on safety awareness to complete bed mobility from supine->sit @ EOB->STS with usage of RW. Patient maneuver throughout facility with usage of RW ~ 40ft. Patient required Mod A to complete STS and CGA for fx'l mobility. Patient able to d/d LB socks independently after s/u. Objective Patient Orientation Person,Place,Name,Age,Year Right Upper WFL Extremity Gross ROM Left Upper Extremity WFL Gross ROM Bed Mobility bed mobility - supine/sit Assist Level Supervision/Stand by Transfer Training Sit/Stand Transfer Assist Level Moderate x 1 (50% assist) Chair Transfer Moderate x 2 (50% assist) Ability Chair Transfer Sit to/from Ambulatory Technique Chair Transfer Rolling Walker Assistive Devices Rehab OT IP prob,goals,plan Problems Date of Evaluation: 05/02/25 OT IP Problems Bed Mobility,Transfers,Balance,Self care,Safety Rehab Potential Rehab Potential Good Equipment Needs Assistive Devices Rolling / Wheeled Walker Plan OT intervention Plan Bed Mobility,Transfers,Balance,Self care,Safety, Therapeutic Exercise OT Plan Frequency Daily Duration LOS Discharge Goals Bed Mobility Ability Independent Sit to Stand Chair Minimal x 2 (25% assist) Transfer Ability Chair Transfer Minimal x 2 (25% assist) Ability Chair Transfer Sit to/from Ambulatory Technique Chair Transfer Rolling Walker Assistive Devices Discharge Plan OT Discharge Plan Patient has support at home with . Recommend patient return home with HH services and upgrade to OP therapy services. Patient will continue skilled OT IP services while here at [facility] to address safety awareness with ADLs and fx'l mobility with appropriate AE/devices . Eval Complexity Eval Charge Codes 18765 - Low Complexity PHYSICIAN CERTIFICATION: I certify the specified therapy services for Pritesh Aguilar are required, authorized, and reviewed every 30 days.
--- NOTE | 2025-05-02 09:32 | HMH.PTEV ---
Physical Therapy Evaluation Rehab PT IP Evaluation Start: 05/01/25 00:09 Freq: ONCE Status: Active Protocol: Document 05/02/25 09:22 NADER (Rec: 05/02/25 09:32 NADER [id number]) Subjective/History History History Per H&P: 60 yo Patient with past medical history of diastolic heart dysfunction, hyperlipidemia, GERD, CAD, cirrhosis, alcohol use disorder, peripheral neuropathy , COPD, hypertension, pancreatic mass. Patient presents to hospital with alcohol withdrawal. Patient states he typically drinks 10 small bottles of manjinder el being liquor per day. Patient states he only had 1 bottle of gin being liquor today. Patient states last previous drink was Friday I had 4 little bottles of Manjinder el. Patient visibly shaking and sweating at time of my bedside evaluation emergency room, and states brought him to hospital for hallucinations. Admits to sweating heavily today. States he is drinking less because I am trying to quit. Admits to history of withdrawal symptoms, but denies withdrawal seizures. Records review shows previous hospitalization September 2024 for similar presentation. During that hospitalization patient ultimately transferred to for acute liver failure evaluation. Denies fevers, chills, shortness of breath, melena, medic easier, hematemesis, coffee-ground emesis, known sick contacts, recent travel. States he has history of EGD, but unable to remember exactly when it occurred. UDS negative, and blood alcohol level undetectable during ED evaluation. UA shows no signs of infection. CIWA score 30 in emergency room. Subjective Subjective Pt reports he lives in a single-story home with 1 KEITH. Pt lives with his who works during the day. Pt reports he usually ambulates IND and sometimes Modified IND with RW. Pt reports hx of falls. [facility] How much help from another person do you currently need... Turning from your None back to your side while in a flat bed without using bedrails? Moving from lying on None back to sitting on the side of a flat bed without using bedrails? Moving to and from a None bed to a chair ( including a wheelchair)? Standing up from a A little chair using your arms? (e.g., wheelchair, bedside chair) Walking in hospital A little room? Climbing 3-5 steps A lot with a railing? Mobility Score 20 Mobility Level [facility] Mobility 6 Walk 10 steps or more Mobility Calculator Rehab PT IP Eval Objective Appearance Patient Behavior Appropriate,Cooperative Patient Orientation Person,Place Difficulty following none instructions Speech Pattern Clear Ambulation Patient Able to Yes Ambulate Ambulation Observation IP General Gait Ataxic Gait Pattern Observation Ambulation Distance 3 (feet) Balance Ability to Arise Able, uses arms to help Sitting Balance Steady, safe Standing Balance Steady, wide stance Dynamic Sitting Good Balance Ability Dynamic Standing Poor Balance Ability Transfers Bed Transfer Ability Minimal x 1 (25% assist) Sit to Stand Bed Minimal x 1 (25% assist) Transfer Ability Sit to Stand Chair Minimal x 1 (25% assist) Transfer Ability Rehab PT IP prob,goals,plan Problems Date of Evaluation: 05/02/25 PT IP Problems Bed Mobility,Transfers,Gait,Balance,Self care,Safety Rehab Potential Rehab Potential Good Plan PT Intervention Plan Bed Mobility,Transfers,Gait,Balance,Self care,Safety, Therapeutic Exercise Other Intervention 1-2 times Plan PT Plan Frequency Daily Duration LOS Discharge Goals Bed Transfer Ability Supervision/Stand by Sit to Stand Chair Supervision/Stand by Transfer Ability Ambulation Assistive Rolling Walker Device Ambulation Distance 10 (feet) Discharge Plan PT Discharge Plan Pt presents below baseline at this time in functional mobility. Pt required Min A for all mobility d/t impaired balance. Pt most appropriate for inpatient rehabilitation d/t impaired ambulation and impaired balance. Pt may be able to d/c home with HH if he achieves his goals while at [facility] or has 24/7 supervision at home. Pt may benefit from skilled acute care PT while at [facility] to achieve goals. Eval Complexity Eval Charge Codes 21239 - Moderate Complexity PHYSICIAN CERTIFICATION: I certify the specified therapy services for Pritesh Aguilar are required, authorized, and reviewed every 30 days.
[2025-05-02] MEDS: METHYLPREDNISOLONE SOD SUCC 40MG VIAL 32 MG IV (09:38)
--- NOTE | 2025-05-02 09:54 | PC.NURSE ---
Patient npo at this time getting ultrasound on liver. Holding PO meds until after ultrasound
[2025-05-02] MEDS: dilTIAZem ER 120MG CAPSULE 120 MG PO (10:17)
[2025-05-02] MEDS: THIAMINE 100MG TABLET 100 MG PO (10:18)
[2025-05-02] MEDS: FOLIC ACID 1MG TABLET 1 MG PO (10:18)
--- NOTE | 2025-05-02 10:50 | PC.NURSE ---
peer support in with patient at this time
[2025-05-02] MEDS: AMOXICILLIN/POT CLAVULAN 500MG TABLET 1 EACH PO (11:44)
--- NOTE | 2025-05-02 12:59 | SW/DCPLANNER ---
I spoke w/ this patient regarding plans once medically stable for discharge. PT/OT evaluated patient and recommended SNF Level of care. Patient refuses placement at this time. Patient stated that he lives at home w/ his . Patient prefers to return to [facility] outpatient PT services. Patient and I discussed the importance on SNF level of care and patient continues to refuse. Per MD patient may discharge home later today. CM will set up outpatient PT services. Patient confirmed he will have transportation to outpatient PT.
[2025-05-02] MEDS: SPIRONOLACTONE 25MG TABLET 25 MG PO (14:17)
[2025-05-02] MEDS: FUROSEMIDE 40MG/4ML VIAL 40 MG IV (14:18)
--- NOTE | 2025-05-02 15:03 | EXP.DC.SUM ---
General Admission date:: 04/30/25 HPI HPI HPI: 60 yo Patient with past medical history of diastolic heart dysfunction, hyperlipidemia, GERD, CAD, cirrhosis, alcohol use disorder, peripheral neuropathy, COPD, hypertension, pancreatic mass. Patient presents to hospital with alcohol withdrawal. Patient states he typically drinks 10 small bottles of manjinder el being liquor per day. Patient states he only had 1 bottle of gin being liquor today. Patient states last previous drink was Friday I had 4 little bottles of Manjinder el. Patient visibly shaking and sweating at time of my bedside evaluation emergency room, and states brought him to hospital for hallucinations. Admits to sweating heavily today. States he is drinking less because I am trying to quit. Admits to history of withdrawal symptoms, but denies withdrawal seizures. Records review shows previous hospitalization September 2024 for similar presentation. During that hospitalization patient ultimately transferred to for acute liver failure evaluation. Denies fevers, chills, shortness of breath, melena, medic easier, hematemesis, coffee-ground emesis, known sick contacts, recent travel. States he has history of EGD, but unable to remember exactly when it occurred. UDS negative, and blood alcohol level undetectable during ED evaluation. UA shows no signs of infection. CIWA score 30 in emergency room. Hospital Course Hospital Course Hospital Course: Referred to GI for further management of decompensated cirrhosis. Referred to general surgery for evidence of Jovany cholecystic fluid, gallbladder wall thickening on level ultrasound. Will follow-up with [facility] on at 3 PM. Started baclofen 5 mg 3 times daily for alcohol use disorder cravings in the setting of cirrhosis. Total time spent on discharge: 32 minutes on chart review, counseling, documentation, and direct care with patient. Exam Data for Last 24 hours Vital signs and Labs for Last 24 Hours: Temp Pulse Resp BP Pulse Ox O2 Del Method O2 Flow Rate 98.7 F 110 H 19 147/99 H 96 Room Air 2 05/02/25 12:00 05/02/25 12:15 05/02/25 12:15 05/02/25 12:00 05/02/25 12:15 05/02/25 12:59 05/01/25 11:00 FiO2 90 05/02/25 09:00 Laboratory Results - last 24 hr 05/02/25 05:26: WBC 15.4 H, RBC 3.19 L, Hgb 11.3 L, Hct 32.5 L, MCV 101.9 H, MCH 35.4 H, MCHC 34.8, RDW 19.2 H, Plt Count 226, MPV 10.8 H, Neut % (Auto) 76.4, Lymph % (Auto) 8.9 L, [place] % (Auto) 11.3 H, Eos % (Auto) 0.8, Baso % (Auto) 0.6, Neut # (Auto) 11.8 H, Lymph # (Auto) 1.4, [place] # (Auto) 1.7 H, Eos # (Auto) 0.1, Baso # (Auto) 0.1, Total Counted 100, Neutrophils % (Manual) 88 H, Lymphocytes % (Manual) 12, Platelet Estimate Normal, Macrocytosis 1+, PT 14.6 H, INR 1.34 H, Sodium 139, Potassium 2.8 L*, Chloride 109 H, Carbon Dioxide 18 L, Anion Gap 14.8, BUN 9, Creatinine 0.90, Estimated Creat Clear 116, Estimated GFR 86, Est GFR ( Amer) 104 D, Glucose 92, Calcium 7.7 L, Phosphorus 2.6 D, Magnesium 1.9 D, Total Bilirubin 21.2 H* D, AST 177 H, ALT 55, Alkaline Phosphatase 363 H, Total Protein 6.8, Albumin 2.9 L, Globulin 3.9 H, Albumin/Globulin Ratio 0.7 L I & O for Last 24 hours: Intake & Output 04/29/25 04/30/25 05/01/25 05/02/25 23:59 23:59 23:59 23:59 Intake Total 1150 / 1225 3452.667 / 3452.667 1570.833 / 1570.833 Output Total 1850 / 1850 700 / 700 Balance 1150 / 1175 1602.667 / 1602.667 870.833 / 870.833 Weight 94.347 kg 93.576 kg 94.302 kg Microbiology Reports for the Last 24 Hours: Microbiology 04/30/25 19:20 Urine,Clean Catch Urine Culture - Final No growth. Results Data Completed and Pending Labs on day of discharge: Labs from last 24 hours 05/02/25 05:26 WBC 15.4 H RBC 3.19 L Hgb 11.3 L Hct 32.5 L MCV 101.9 H MCH 35.4 H MCHC 34.8 RDW 19.2 H Plt Count 226 MPV 10.8 H Neut % (Auto) 76.4 Lymph % (Auto) 8.9 L [place] % (Auto) 11.3 H Eos % (Auto) 0.8 Baso % (Auto) 0.6 Neut # (Auto) 11.8 H Lymph # (Auto) 1.4 [place] # (Auto) 1.7 H Eos # (Auto) 0.1 Baso # (Auto) 0.1 Total Counted 100 Neutrophils % (Manual) 88 H Lymphocytes % (Manual) 12 Platelet Estimate Normal Macrocytosis 1+ PT 14.6 H INR 1.34 H Sodium 139 Potassium 2.8 L* Chloride 109 H Carbon Dioxide 18 L Anion Gap 14.8 BUN 9 Creatinine 0.90 Estimated Creat Clear 116 Estimated GFR 86 Est GFR ( Amer) 104 D Glucose 92 Calcium 7.7 L Phosphorus 2.6 D Magnesium 1.9 D Total Bilirubin 21.2 H* D AST 177 H ALT 55 Alkaline Phosphatase 363 H Total Protein 6.8 Albumin 2.9 L Globulin 3.9 H Albumin/Globulin Ratio 0.7 L DS: Diagnosis Discharge Diagnosis (1) Alcohol withdrawal: Status: Acute Code(s): F10.939 - Alcohol use, unspecified with withdrawal, unspecified (2) Cirrhosis: Status: Acute Code(s): K74.60 - Unspecified cirrhosis of liver (3) Hypokalemia: Status: Acute Code(s): E87.6 - Hypokalemia (4) Hypomagnesemia: Status: Acute Code(s): E83.42 - Hypomagnesemia (5) Chronic alcoholism: Status: Acute Code(s): F10.20 - Alcohol dependence, uncomplicated (6) Acute alcoholic hepatitis: Status: Acute Code(s): K70.10 - Alcoholic hepatitis without ascites (7) Jaundice: Status: Acute Code(s): R17 - Unspecified jaundice (8) COPD (chronic obstructive pulmonary disease): Status: Chronic Code(s): J44.9 - Chronic obstructive pulmonary disease, unspecified Qualifiers: COPD type: unspecified COPD Qualified Code(s): J44.9 - Chronic obstructive pulmonary disease, unspecified (9) GERD (gastroesophageal reflux disease): Status: Chronic Code(s): K21.9 - Gastro-esophageal reflux disease without esophagitis Qualifiers: Esophagitis presence: esophagitis presence not specified Qualified Code(s): K21.9 - Gastro-esophageal reflux disease without esophagitis (10) HLD (hyperlipidemia): Status: Chronic Code(s): E78.5 - Hyperlipidemia, unspecified Qualifiers: Hyperlipidemia type: mixed hyperlipidemia Qualified Code(s): E78.2 - Mixed hyperlipidemia (11) Coronary artery disease: Status: Chronic Code(s): I25.10 - Atherosclerotic heart disease of [place] coronary artery without angina pectoris Qualifiers: Associated angina: without angina Coronary Disease-Associated Artery/Lesion type: [place] artery [place] vs. transplanted heart: [place] heart Qualified Code(s): I25.10 - Atherosclerotic heart disease of [place] coronary artery without angina pectoris (12) Transaminitis: Status: Acute Code(s): R74.01 - Elevation of levels of liver transaminase levels (13) Coagulopathy: Status: Acute Code(s): D68.9 - Coagulation defect, unspecified Problem details: Due to liver injury Meds Home Medications and Allergies Home Medications ?Medication ?Instructions ?Recorded ?Confirmed ?Type furosemide 40 mg tablet 40 mg PO DAILY 12/13/24 05/01/25 History inclisiran 284 mg/1.5 mL 284 mg (1.5 mL) SQ [id number] #1.5 mL 12/13/24 05/01/25 Rx subcutaneous syringe (Leqvio) potassium chloride 20 mEq 20 meq PO BID 12/13/24 05/01/25 History tablet,extended release testosterone 30 mg/actuation (1.5 2 pump transdermal DAILY 12/13/24 05/01/25 History mL) transderm solution metered pump diltiazem HCl 120 mg 120 mg PO DAILY 05/01/25 05/01/25 History capsule,extended release 24 hr omeprazole 40 mg capsule,delayed 40 mg PO BID 05/01/25 05/01/25 History release acetylcysteine 200 mg/mL (20 %) 6,000 mg (30 mL) PO Q6H 14 days 05/02/25 Rx solution #1,680 mL amoxicillin 500 mg-potassium 1 tab PO TID 5 days #15 tabs 05/02/25 Rx clavulanate 125 mg tablet baclofen 5 mg tablet 5 mg PO TID #30 tabs 05/02/25 Rx multivitamin with folic acid 400 1 tab PO DAILY 30 days #30 tabs 05/02/25 Rx mcg tablet (Tab-A-Saranya) prednisone 20 mg tablet 40 mg (2 x 20 mg) PO DAILY 7 days 05/02/25 Rx #14 tabs spironolactone 25 mg tablet 25 mg PO DAILY 30 days #30 tabs 05/02/25 Rx New Prescriptions to Start Prescriptions: acetylcysteine Judy,Jeevan amoxicillin-pot clavulanate Judy,Jeevan baclofen Judy,Jeevan multivitamin with folic acid [Tab-A-Saranya] Judy,Jeevan prednisone Judy,Jeevan spironolactone Judy,Jeevan Allergies Allergy/AdvReac Type Severity Reaction Status Date / Time atorvastatin AdvReac Severe Unknown Verified 04/30/25 23:58 allergy reaction isosorbide AdvReac Mild Headache Verified 04/30/25 23:58 Discharge Plan Disposition Patient Disposition: Home, Self-Care Condition: Fair Discharge Order Discharge Orders: Discharge Order (Routine); Ordered 05/02/25 Ordered By: Jeevan Kim Follow up Plan Follow up with: Chester Garcia MD [Staff Physician, General Surgery] - 1 week Referral Note: Gallbladder wall thickening, pericholecystic fluid on liver ultrasound. Walter Fountain II, MD [Staff Physician, Gastroenterology] - 1 week Salvador Alvarez MD [Primary Care Provider, Medical] - 05/05/25 10:00 am Prescriptions/Medication Reconciliation: New acetylcysteine 200 mg/mL (20 %) Solution 6,000 mg PO Q6H 14 Days Qty: 1680 0RF spironolactone 25 mg Tablet 25 mg PO DAILY 30 Days Qty: 30 0RF amoxicillin-pot clavulanate 500-125 mg Tablet 1 tab PO TID 5 Days Qty: 15 0RF multivitamin with folic acid [Tab-A-Saranya] 400 mcg Tablet 1 tab PO DAILY 30 Days Qty: 30 0RF baclofen 5 mg tablet 5 mg PO TID Qty: 30 0RF prednisone 20 mg tablet 40 mg PO DAILY 7 Days Qty: 14 0RF Continued furosemide 40 mg tablet 40 mg PO DAILY Patient Comments: TAKE 1 TABLET BY MOUTH ONCE DAILY NEEDED FOR SWELLING testosterone 30 mg/actuation (1.5 mL) solution in metered pump w/valdez 2 pump transdermal DAILY Patient Comments: APPLY 2 PUMP(S) TRANSDERMALLY ONCE A DAY 30 DAY(S) Leqvio 284 mg/1.5 mL syringe 284 mg SQ [id number] Qty: 1.5 2RF Rx Instructions: Initial dose, then repeat in 3 months, then every 6 months thereafter potassium chloride 20 mEq tablet extended release 20 meq PO BID Patient Comments: TAKE 1 TABLET BY MOUTH TWICE A DAY FOR SUPPLEMENT FOR 90 DAYS diltiazem HCl 120 mg capsule,extended release 24hr 120 mg PO DAILY omeprazole 40 mg capsule,delayed release(DR/EC) 40 mg PO BID Problem Reconciliation Problems Reviewed?: Yes Patient Discharge Instructions Additional Instructions: Follow-Up w/ [facility] on May 05 @ 3pm. We have started a medication called baclofen 5 mg 3 times daily to help with your alcohol cravings. Please follow-up with [facility] later this week for further management. Patient Instructions: The Mediterranean Diet and Good Health Print Language: E[place]re[place] Providers Primary Care Provider: Salvador Alvarez Admit Provider: Gaol Hein Attending Provider: Galo Hein
--- NOTE | 2025-05-02 15:54 | PEERSUPPORT ---
Peer Support Note Patient Information Patient Information: DOS: 05/02/2025 ? Ps Consult: ETOH ? Building Rapport: Pt admitted to returning to drinking saying he he was on and off the wagon . He is now drinking 4-5 small bottles of Jeremy Beam daily, but says he does not get drunk. 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 He did not have any reflex to catch himself at this time, unsure how long he laid there until his found him and brought him to the hospital. ? Pt stated he does drive himself to get his alcohol. Ps explored other alternatives to him driving and ways to not gain access to alcohol. -Pts can and will drive him. -Call someone trusted to talk to before he drives if he has the thought of drinking or buying alcohol. ? Pt has not been going to any follow up appointments only seeing his primary care physician Dr. Alvarez who sends him to specialist, then they tell him to see his primary care provider. ? Pt shared briefly his history with drinking being inherited from his family that even loosing family members something just comes over him to drink that he is not able to overcome and returns to drinking. ? Ps shared personal experience relating to building relationships with recovery community such as [facility] for outpatient treatment specialized for alcohol use disorder. ? Pt is receptive agreeing to try an outpatient program, he is understanding of the process and policy to attend weekly appointments with medical provider, therapist, support groups, and social work case manager if needed. ? Ps schedules appointment with [facility]. ? [facility] Appointment: @3:00 pm ? Pt request for ps to meet patient at initial appointment. Ps agrees to be at [facility] during first appointment to provide support. Pt Zaida at bedside: Receptive to support and appointment with [facility]. Ps provided contact information offering ongoing support. Plan of action: -Daily recovery support check ins @ 10:15 am Friday- Friday. -Refrain from drinking -Take medications as prescribed - Attend appointment with [facility] on 05/05/2025 @ 3:00? pm. ?
--- NOTE | 2025-05-04 10:27 | SW/DCPLANNER ---
Spoke with patient on the phone. patient stated that he is doing good. Patient stated that he is aware of his upcoming appointments. Patient stated that he was able to get his new medicine picked up from clinic pharmacy. Patient stated that he has no concerns or questions at this time. Jesse Alvarenga
== END 2025-05-02 17:05 | disposition home or self-care (01) | DRG 897 ==
LOC: ER 22:08 → ICU 05-01 00:15
PROVIDERS: Internal Medicine; Admitting Provider Internal Medicine Adolescent Medicine; Emergency Provider Student in an Organized Health Care Education/Training Program; PCP Family Medicine; Visit Provider Internal Medicine Adolescent Medicine
DX: F10.239 Alcohol dependence with withdrawal, unspecified (principal); D68.4 Acquired coagulation factor deficiency; K70.10 Alcoholic hepatitis without ascites; J44.9 Chronic obstructive pulmonary disease, unspecified; K74.60 Unspecified cirrhosis of liver; I11.9 Hypertensive heart disease without heart failure; E83.42 Hypomagnesemia; E87.6 Hypokalemia; K21.9 Gastro-esophageal reflux disease without esophagitis; E78.2 Mixed hyperlipidemia; I25.10 Atherosclerotic heart disease of native coronary artery without angina pectoris; G62.9 Polyneuropathy, unspecified; F41.1 Generalized anxiety disorder; K76.0 Fatty (change of) liver, not elsewhere classified; Y90.0 Blood alcohol level of less than 20 mg/100 ml; Z87.891 Personal history of nicotine dependence; Z88.8 Allergy status to other drugs, medicaments and biological substances; Z79.899 Other long term (current) drug therapy
CPT/HCPCS: 36415; 70450; 71045; 71275; 72125; 74177; 76705; 80053; 80061; 80307; 80320; 81001; 82248; 83690; 83735; 84100; 84132; 85007; 85025; 85610; 87086; 87389; 93005; 97162; 97165; 97530; 99285; J1650; J1885; J1938; J2470; J2919; J3360; J3430; J3475; J3480; J7030; Q9967

== ENCOUNTER 2025-05-12 08:10 | Outpatient (CLI) | payer BC, SELFPAY ==
[2025-05-12 08:32] LABS: Hematocrit 40.2 % (42.0-52.0); Hemoglobin 13.8 g/dL (14.1-18.0); Immature Granulocytes % 3.1 %; Mean Corpuscular HGB Conc 34.3 g/dL (31.8-35.4); Mean Corpuscular Hemoglobin 34.8 pg (27.0-31.2); Mean Corpuscular Volume 101.5 fl (80-94); Nucleated Red Blood Cells % 0 %; Platelet Count 449 K/mm3 (142-424); Red Blood Count 3.96 M/mm3 (4.60-6.20); Red Cell Distribution Width-SD 63.3 fL; White Blood Count 21.8 K/mm3 (4.8-10.8)
[2025-05-12 08:38] LABS: INR 1.25 (0.9-1.1); Prothrombin Time 13.6 seconds (10.1-12.5)
[2025-05-12 09:37] LABS: Macrocytosis 1+; Total Cells Counted 100
[2025-05-12 10:54] LABS: Alanine Aminotransferase 214 U/L (12-78); Albumin Level 3.7 g/dl (3.5-5.0); Albumin/Globulin Ratio 1.0 (1.1-1.8); Alkaline Phosphatase 410 U/L (38-126); Anion Gap 18.0 mEq/L (5-15); Aspartate Amino Transferase 231 U/L (17-59); Bilirubin,Direct 17.1 mg/dl (0.0-0.4); Bilirubin,Indirect 2.6 mg/dL (0.0-0.9); Bilirubin,Total 19.7 mg/dl (0.2-1.3); Bilirubin,Unconjugated 2.6 mg/dL (0.0-1.1); Blood Urea Nitrogen 18 mg/dl (9-20); Calcium 9.5 mg/dl (8.4-10.2); Carbon Dioxide 21 mmol/L (22.0-30.0); Chloride 101 mmol/L (98-107); Creatinine,Serum 1.10 mg/dl (0.66-1.25); Estimated Glomerular Filt Rate 68 ml/min (>60); GFR (African American) 83 ML/MIN (>60); Globulin 3.6 g/dL (1.3-3.2); Glucose 79 mg/dl (74-100); Potassium 5.0 mmoL/L (3.5-5.1); Sodium 135 mmol/L (136-145); Total Protein,Serum 7.3 g/dl (6.3-8.2)
== END 2025-05-12 23:59 | disposition home or self-care (01) ==
LOC: LAB 08:11
PROVIDERS: PCP Family Medicine; Visit Provider Nurse Practitioner Family
DX: K72.00 Acute and subacute hepatic failure without coma (principal)
CPT/HCPCS: 36415; 80053; 80321; 82247; 82248; 85007; 85025; 85610

== ENCOUNTER 2025-05-13 14:01 | Emergency (ER) | payer BC, SELFPAY ==
[2025-05-13] VITALS (13 sets, daily range): BP systolic 103–133; BP diastolic 66–86; PULSE 71–97; RESP 15–18; TEMP 36.6–36.8; O2SAT 95–100; BMI 29.2
--- NOTE | 2025-05-13 14:39 | ED_ITS ---
<Statement entered by Wilton Brizuela DO - 05/14/25 01:22> I was consulted by the VALDEZ, and we discussed the complexity of problems being addressed. I approved the treatment and management plan for this patient's care in the emergency department, thus performing a substantive portion of the medical decision making. This is a 60-year-old male patient who presented to the emergency department for evaluation of an abnormal laboratory test. The patient has a extensive history of alcoholic cirrhosis and recently quit drinking alcohol around 5 weeks ago. He was following up with the gastroenterology clinic today and had routine labs drawn. The nurse practitioner there stated that she was going to call the patient to discuss his labs, but the clinical trial leader misinterpreted what the nurse practitioner stated and called the patient erroneously and asked him to present here for further workup for his abnormal laboratory studies in the clinic. The patient tells me that he is not having any abnormal symptoms at all. He states that he is chronically weaker than usual secondary to his chronic liver disease and he is chronically jaundiced but he is not experiencing any shortness of breath, new cough, new production of phlegm, urinary symptoms, focal weakness, or other symptoms. The lab that was abnormal and that was of question was a leukocytosis of 20. However, the patient's baseline leukocytosis is around 15 Workup was initiated with hematologic labs as well as a CT scan of the abdomen and pelvis. CT scan of the abdomen and pelvis shows no acute findings and no evidence of ascites. The patient's labs do look quite horrific but are not acutely horrific and are not really changed from prior. His labs were personally interpreted by me and demonstrate a leukocytosis of 20.9, no transfusional anemia, his platelet count is actually adequate at 420. His PT INR is improved from prior with an INR of 1.19. He has mild hyponatremia that is stable from prior. He has no evidence of acute kidney injury. His total bilirubin is 20.1, however his bilirubin has been greater than 19 since September of this year. Additionally, the patient's AST, ALT, and alkaline phosphatase are stable from prior as well. We did workup other causes of potential worsening leukocytosis including a chest x-ray as well as urine studies. The patient has no evidence of urinary tract infection and is not experiencing any urinary symptoms. Additionally, on chest x-ray he has no lobar consolidation to indicate an infectious process occurring. This patient's MELD score back in September on his admission was 27, today his MELD score is 26 indicating very mild improvement. While he certainly has chronic conditions and a very poor prognosis, I do not feel that he would benefit from admission as he is not experiencing acute decompensated cirrhosis but instead chronic cirrhosis. Therefore we elected to discharge the patient home and have him follow-up in the outpatient clinic with gastroenterology Wilton Brizuela DO Discharge Plan Disposition Patient Disposition: Home, Self-Care Condition: Good Prescriptions Prescriptions: No Action furosemide 40 mg tablet 40 mg PO DAILY Patient Comments: TAKE 1 TABLET BY MOUTH ONCE DAILY NEEDED FOR SWELLING testosterone 30 mg/actuation (1.5 mL) solution in metered pump w/valdez 2 pump transdermal DAILY Patient Comments: APPLY 2 PUMP(S) TRANSDERMALLY ONCE A DAY 30 DAY(S) Leqvio 284 mg/1.5 mL syringe 284 mg SQ [id number] Qty: 1.5 2RF Rx Instructions: Initial dose, then repeat in 3 months, then every 6 months thereafter omeprazole magnesium [Prilosec OTC] 20 mg tablet,delayed release (DR/EC) 20 mg PO DAILY potassium chloride 20 mEq tablet extended release 20 meq PO BID Patient Comments: TAKE 1 TABLET BY MOUTH TWICE A DAY FOR SUPPLEMENT FOR 90 DAYS diltiazem HCl 120 mg capsule,extended release 24hr 120 mg PO DAILY omeprazole 40 mg capsule,delayed release(DR/EC) 40 mg PO BID acetylcysteine 200 mg/mL (20 %) Solution 6,000 mg PO Q6H 14 Days Qty: 1680 0RF spironolactone 25 mg Tablet 25 mg PO DAILY 30 Days Qty: 30 0RF multivitamin with folic acid [Tab-A-Saranya] 400 mcg Tablet 1 tab PO DAILY 30 Days Qty: 30 0RF baclofen 5 mg tablet 5 mg PO TID Qty: 30 0RF Referrals Follow up/Referrals: Salvador Alvarez MD [Primary Care Provider, Medical] - See instructions Nichelle Park APRN [Nurse Practitioner, Gastroenterology] - See instructions Activity Restrictions/Add. Instructions Additional Instructions/Restrictions: Please return to the emergency department with any worsening signs or symptoms. Please follow-up with your GI doctor PCP and other physicians/providers in the upcoming days/weeks. Clinical Impressions Clinical Impression: Leukocytosis Instructions Patient Instructions: DI for Leukocytosis Print Language Print Language: Uzbek Discharge ED Provider: Wilton Brizuela General Adult HPI General Chief complaint: Weakness Stated complaint: abnormal labs Time Seen by Provider: 05/13/25 14:24 Mode of Arrival: Ambulatory Source of Information: Patient Description of Symptoms (Recalled from ER Triage Doc. by RN): Pt was advised by PCP to come in for evaluation of abnormal labs. Pt is unsure of which labs are abnormal. Pt states he has had generalized weakness that started today. History of Present Illness HPI narrative: 60-year-old male presents to the emergency department with request of his GI physician for abnormal labs, patient states that yesterday he had laboratory studies performed by his GI doctors as an outpatient, noted elevated white blood cell count, called him today with the results requesting him to come straight to the emergency department. Patient denies any fever or chills, does admit to some cough and shortness of breath, which is on his baseline, does have history of COPD, is a former smoker, denies any abdominal pain nausea vomiting constipation diarrhea no urinary type symptomatology, no melena no hematochezia not obese or hemoptysis, patient has significant history of former alcohol abuse, clean and sober for 5 weeks , denies any other illicit drug use. Other past medical history consistent with hyperlipidemia, CAD, GERD, hypertension, Please note that above description of symptoms, in this electronic medical record under categorization of recalled from ER triage doctor by RN are reflective of an initial nursing assessment, however, is not reflective of my full history and physical exam that was personally taken and clarified. Consequentially, this preceding description of symptoms, which may include the patient's categorized chief complaint in the EMR, do not reflect my personal clinical impression, and the ultimate description of history of present illness and patient stated complaints should be deferred to this section of the note. Unless stated otherwise or congruent with this section of the note, additional signs, symptoms, or incongruence should be interpreted as inaccurate with my clinical impression. Onset (ago): unknown Related Data Home Medications ?Medication ?Instructions ?Recorded ?Confirmed furosemide 40 mg tablet 40 mg PO DAILY 12/13/2404/28 potassium chloride 20 mEq 20 meq PO BID 12/13/2405/12 tablet,extended release testosterone 30 mg/actuation (1.5 2 pump transdermal D AILY 12/13/24 05/12/25 mL) transderm solution metered pump diltiazem HCl 120 mg 120 mg PO DAILY 05/01/2504/28 capsule,extended release 24 hr omeprazole 40 mg capsule,delayed 40 mg PO BID 05/01/25 05/12/25 release omeprazole magnesium 20 mg 20 mg PO DAILY 05/09/2504/28 tablet,delayed release (Prilosec OTC) Previous Rx's ?Medication ?Instructions ?Recorded inclisiran 284 mg/1.5 mL 284 mg (1.5 mL) SQ [id number] #1.5 mL 12/13/24 subcutaneous syringe (Leqvio) acetylcysteine 200 mg/mL (20 %) 6,000 mg (30 mL) PO Q6 H 14 days 05/02/25 solution #1,680 mL baclofen 5 mg tablet 5 mg PO TID #30 tabs 5 multivitamin with folic acid 400 1 tab PO DAILY 30 day s #30 tabs 05/02/25 mcg tablet (Tab-A-Saranya) spironolactone 25 mg tablet 25 mg PO DAILY 30 days #30 tabs 05/02/25 Allergies Allergy/AdvReac Type Severity Reaction Status Date / Time atorvastatin AdvReac Severe Unknown Verified 05/12/25 08:56 allergy reaction isosorbide AdvReac Mild Headache Verified 05/12/25 08:56 [facility] Disclaimer: The information contained in this section may have been updated after the patient was seen, as this information can be updated by other users. Medical History Claudication Edema History of left heart catheterization Dyspnea on exertion Fatigue Mass of pancreas Tick bite Myalgia Acute liver failure Acute renal failure Jaundice Mass of pancreas Alcohol abuse Hypertriglyceridemia Coronary artery disease Cirrhosis Abnormal nuclear cardiac imaging test Rhabdomyolysis Gallstones Transaminitis Hyperuricemia Hepatic steatosis Rheumatoid factor positive Abnormal stress test SOB (shortness of breath) on exertion Primary hypertension Diastolic dysfunction Ex-smoker COPD (chronic obstructive pulmonary disease) GERD (gastroesophageal reflux disease) HLD (hyperlipidemia) HHD (hypertensive heart disease) Surgical History H/O heart artery stent H/O removal of cyst Tumor removal on back Family History Father Cancer of heart Mother Lung cancer Colon cancer Liver cancer Mother No problems noted. Social History Smoking Status: Never smoker alcohol intake: current alcohol intake frequency: 3 or more drinks per day substance use type: denies use current occupational status: retired Travel in the last 8 weeks?: None household members: spouse caffeine: No Have you lived/traveled outside [place] in past 30 days?: No Contact w/someone who lives/traveled outside [place] past 30 days?: No Exposure to someone with infectious disease in past 14 days?: No Do you have a fever (greater than 100.4 F or 38 C)?: No Have you tested positive for COVID-19?: No Exposed to someone with COVID-19 in past 14 days?: No Do you have a sore throat?: No Do you have a cough?: No Do you have any weakness?: No Do you have any diarrhea?: No Are you experiencing any unusual bleeding?: No Do you have any muscle aches/pain?: No Do you have any abdominal pain?: No Are you experiencing loss of taste or smell?: No Other Medical History Have you received the Flu Vaccine for this season: No Have you received the Pneumonia Vaccine: No ROS Obtained: Yes All systems reviewed & no additional complaints except as documented Physical Exam General General appearance: alert and in no apparent distress Head Head exam: atraumatic and normocephalic Eye Eye exam: Present PERRL, EOMI, scleral icterus and jaundice ENT ENT exam: Present mucous membranes moist Neck Neck exam: Present normal inspection Chest Chest inspection: Present normal inspection and symmetric chest wall rise Respiratory Respiratory exam: Present normal lung sounds bilaterally; Absent respiratory distress, wheezes or stridor Cardiovascular Cardiovascular exam: Present regular rate and normal rhythm Abdominal Exam Abdominal exam: Present soft; Absent tenderness, guarding, rebound or rigidity Extremities Exam Extremities exam: Present normal inspection Neurological Exam Neurological exam: Present alert and oriented X3 Psychiatric Psychiatric exam: Present normal affect Skin Skin exam: Present warm and dry Medical Decision Making Medical Records Medical records reviewed: Yes I reviewed the patient's medical records. Screening: Per USPSTF and CDC recommendations, given the prevalence of disease in our region, it is our hospital?s policy to screen for HIV and viral Hepatitis for all patients aged 18 and over and those with ongoing risk factors. James Inquiry Pt receiving controlled substance: No Vital Signs: 05/13/25 14:07 05/13/25 14:30 05/13/25 14:45 Temperature 98.3 F Temperature Source Temporal Artery Scan Pulse Rate 96 H Pulse Rate [Right] 97 H Respiratory Rate 18 Blood Pressure 114/66 103/76 L Blood Pressure [Right Arm] 121/69 Blood Pressure Mean 79 Blood Pressure Mean [Right Arm] 86 Blood Pressure Source [Right Arm] Automatic Cuff Blood Pressure Position [Right Arm] Sitting 02 Sat by Pulse Oximetry 100 96 Oxygen Delivery Method 05/13/25 15:00 05/13/25 15:15 05/13/25 16:15 Temperature Temperature Source Pulse Rate 85 83 87 Pulse Rate [Right] Respiratory Rate Blood Pressure 124/75 127/77 111/74 Blood Pressure [Right Arm] Blood Pressure Mean Blood Pressure Mean [Right Arm] Blood Pressure Source [Right Arm] Blood Pressure Position [Right Arm] 02 Sat by Pulse Oximetry 97 96 98 Oxygen Delivery Method 05/13/25 16:30 05/13/25 16:45 05/13/25 17:00 Temperature Temperature Source Pulse Rate 71 74 84 Pulse Rate [Right] Respiratory Rate Blood Pressure 122/74 113/80 133/78 Blood Pressure [Right Arm] Blood Pressure Mean Blood Pressure Mean [Right Arm] Blood Pressure Source [Right Arm] Blood Pressure Position [Right Arm] 02 Sat by Pulse Oximetry 96 95 96 Oxygen Delivery Method Room Air Room Air 05/13/25 17:15 05/13/25 17:30 05/13/25 17:45 Temperature Temperature Source Pulse Rate 75 84 87 Pulse Rate [Right] Respiratory Rate Blood Pressure 123/84 130/86 120/82 Blood Pressure [Right Arm] Blood Pressure Mean Blood Pressure Mean [Right Arm] Blood Pressure Source [Right Arm] Blood Pressure Position [Right Arm] 02 Sat by Pulse Oximetry 96 96 97 Oxygen Delivery Method Lab Data Lab results reviewed: Yes I reviewed the patient's lab results. Lab Results 05/13/25 14:30: WBC 20.9 H*, RBC 3.85 L, Hgb 13.3 L, Hct 38.8 L, MCV 100.8 H, M CH 34.5 H, MCHC 34.3, RDW 16.4, Plt Count 420, MPV 11.3 H, Neut % (Auto) 77.3, L ymph % (Auto) 9.0 L, Kay % (Auto) 9.9 H, Eos % (Auto) 0.9, Baso % (Auto) 0.2, N eut # (Auto) 16.1 H, Lymph # (Auto) 1.9, Kay # (Auto) 2.1 H, Eos # (Auto) 0.2, Baso # (Auto) 0.1, Total Counted 100, Neutrophils % (Manual) 72, Lymphocytes % (Manual) 9 L, Monocytes % (Manual) 14 H, Eosinophils % (Manual) 1, Metamyelocytes % 1.0, Myelocytes % 3 H, Platelet Estimate Slight increase, Polychromasia 1+, Poikilocytosis 1+, Anisocytosis 1+, Macrocytosis 1+, Target Cells 1+, Tear Drop Cells 2+, PT 13.0 H, INR 1.19 H, APTT 28.0, Sodium 131 L, Potassium 4.9, Chloride 99, Carbon Dioxide 18 L, Anion Gap 18.9 H, BUN 18, C reatinine 1.30 H, Estimated Creat Clear 74, Estimated GFR 56 L, Est GFR ( Amer) 68, Glucose 97, Lactate 1.5, Calcium 9.7, Magnesium 2.2, Total Bilirubin 20.1 H*, GGT 624 H, AST 271 H, ALT 239 H, Alkaline Phosphatase 438 H, Total Protein 7.9, Albumin 3.9, Globulin 4.0 H, Albumin/Globulin Ratio 1.0 L, Lipase 262, Plasma/Serum Alcohol < 10 05/13/25 18:12: Urine Color Yellow, Urine Appearance Clear, Urine pH 5.0, Ur Specific [place] <= 1.005, Urine Protein Negative, Urine Glucose (UA) Trace, Urine Ketones Negative, Urine Blood Negative, Urine Nitrate Negative, Urine Bilirubin 3+ A, Urine Urobilinogen 1.0, Ur Leukocyte Esterase Negative 05/13/25 14:30 05/13/25 14:30 Orders (Tests/Meds): ED MEDICATIONS Discontinued Medications Generic Name Dose Route Start Last Admin Trade Name Freq PRN Reason Stop Dose Admin Iopamidol 75 ml 05/13/25 16:06 05/13/25 16:07 Iopamidol-370 (76%);100ml Bottle IV 05/13/25 16:07 75 ml ONCE ONE Administration Sodium Chloride 10 ml 05/13/25 16:06 05/13/25 16:07 Sodium Chloride 0.9% 10ml Syr (Rad Only) IV 05/13/25 16:07 10 ml ONCE ONE Administration ORDERS Category Date Time Status CT abdomen pelvis w con Stat Cat Scan 05/13/25 15:38 Completed XR chest portable Stat Exams 05/13/25 14:47 Completed Complete Blood Count Auto Diff Stat Lab 05/13/25 14:30 Completed Comprehensive Metabolic Panel Stat Lab 05/13/25 14:30 Completed Ethanol [Ethyl Alcohol] Stat Lab 05/13/25 14:30 Completed GGT [Gamma Glutamyl Transpeptidase] Stat Lab 05/13/25 14:30 Completed Lactic Acid Stat Lab 05/13/25 14:30 Completed Lipase Stat Lab 05/13/25 14:30 Completed Magnesium Stat Lab 05/13/25 14:30 Completed PT INR [Prothrombin Time INR] Stat Lab 05/13/25 14:30 Completed PTT [Activated Partial Thrombo Time] Stat Lab 05/13/25 14:30 Completed Urinalysis and Microscopic Stat Lab 05/13/25 18:12 Results Blood Culture Stat Micro 05/13/25 15:32 Received Medical Decision Narrative: 60-year-old male presents to the emergency department at the request of his primary care doctor for leukocytosis, differential diagnose include but not limited to hepatitis, acute liver failure, acute hypovolemia, malignancy, infection, pancreatitis, electrolyte disturbance among others. I discussed this patient's case with the attending physician Dr. Galvin and attending physician Dr. Brizuela, attending physician Dr. Brizuela saw and examined the patient as well. Will obtain basic laboratory studies, chest x-ray, ethyl alcohol level, lactic acid of lipase level magnesium level, PT/INR, PTT, GGT blood cultures, UA CBC is noted for leukocytosis 20.9, erythrocyte pi?a 3.85, hemoglobin hematocrit are stable at 13.3/38.8, MCV is elevated to 100.8 Leukocytosis is improved since yesterday from 21.8. PT is 13, INR is 1.19 PTT within normal limits CMP is notable for mild hyponatremia at 131, creatinine elevation 1.3, no lactic acidosis, total bilirubin is 20.1, GGT is 624, AST and ALT are significantly elevated at 271/239, ALP is elevated at 438, ethyl alcohol level within normal limits lipase level within normal limit, will obtain CT abdomen pelvis with contrast for further evaluation of characterization. I reviewed the patient's chest x-ray along with the corresponding radiologic report no acute process on portable exam I reviewed the patient's CT abdomen pelvis with contrast along the corresponding radiologic report, cirrhosis fatty liver and probable portal hypertension cholelithiasis. Discussed this patient's case in depth with Nichelle Park, the SITE ENGINEER who works with the gastroenterology office whose office sent the patient here for evaluation. Ms. park is less concerned after discussing the patient's case over the phone, leukocytosis could be in the setting of the patient's liver cirrhosis, patient has no infectious type signs or symptoms here, would be amicable to send home if patient is continue to remain asymptomatic and no definitive source of infection to explain the patient's leukocytosis. UA is notable for 3+ bilirubin, negative leukocyte esterase, negative nitrites, negative hematuria I had a long discussion with the patient the bedside patient has no acute signs or symptoms, infectious workup is negative, patient is slated follow-up with his GI doctor and PCP, advised him to follow-up with [facility] to see if he is a candidate for liver transplant as previously he was told he was not a candidate for liver transplant due to being an alcoholic , the patient states. Patient was given extremely strict ED return precautions, shared decision-making was utilized and patient will be discharged home to self-care as patient is essentially asymptomatic at this time. And unremarkable workup. Laboratory studies regarding his liver failure are similar to previous. This was discussed with his gastroenterology team over the phone as stated above. Patient voiced understanding and agreement with the current treatment plan/discharge plan. Critical Care Critical Care Time Critical Care Time: No
--- NOTE | 2025-05-13 14:47 | XR_ITS ---
FINAL REPORT CLINICAL HISTORY: Shortness of air and cough COMPARISON: 04/30/2025 FINDINGS: A portable view of the chest was obtained. Cardiac and mediastinal silhouettes are within normal limits. The lungs are clear. There is no pleural effusion or pneumothorax. IMPRESSION: No acute process on this portable exam. Reviewed, Interpreted and Dictated by Ana Crandall MD Transcribed by Gita Willett Authenticated and [facility]
[2025-05-13 14:56] LABS: Hematocrit 38.8 % (42.0-52.0); Hemoglobin 13.3 g/dL (14.1-18.0); Immature Granulocytes % 2.7 %; Mean Corpuscular HGB Conc 34.3 g/dL (31.8-35.4); Mean Corpuscular Hemoglobin 34.5 pg (27.0-31.2); Mean Corpuscular Volume 100.8 fl (80-94); Nucleated Red Blood Cells % 0 %; Platelet Count 420 K/mm3 (142-424); Red Blood Count 3.85 M/mm3 (4.60-6.20); Red Cell Distribution Width-SD 60.0 fL; White Blood Count 20.9 K/mm3 (4.8-10.8)
[2025-05-13 15:05] LABS: Gamma Glutamyl Transpeptidase 624 U/L (15-73); Lipase 262 U/L (23-300)
[2025-05-13 15:06] LABS: Alanine Aminotransferase 239 U/L (12-78); Albumin Level 3.9 g/dl (3.5-5.0); Albumin/Globulin Ratio 1.0 (1.1-1.8); Alkaline Phosphatase 438 U/L (38-126); Anion Gap 18.9 mEq/L (5-15); Aspartate Amino Transferase 271 U/L (17-59); Bilirubin,Total 20.1 mg/dl (0.2-1.3); Blood Urea Nitrogen 18 mg/dl (9-20); Calcium 9.7 mg/dl (8.4-10.2); Carbon Dioxide 18 mmol/L (22.0-30.0); Chloride 99 mmol/L (98-107); Creatinine Clearance Estimated 74 mL/min (50-200); Creatinine,Serum 1.30 mg/dl (0.66-1.25); Estimated Glomerular Filt Rate 56 ml/min (>60); GFR (African American) 68 ML/MIN (>60); Globulin 4.0 g/dL (1.3-3.2); Glucose 97 mg/dl (74-100); Magnesium 2.2 mg/dl (1.6-2.3); Potassium 4.9 mmoL/L (3.5-5.1); Sodium 131 mmol/L (136-145); Total Protein,Serum 7.9 g/dl (6.3-8.2)
[2025-05-13 15:09] LABS: Activated Partial Thrombo Time 28.0 seconds (22.8-30.6); INR 1.19 (0.9-1.1); Prothrombin Time 13.0 seconds (10.1-12.5)
[2025-05-13 15:20] LABS: Total Cells Counted 100
[2025-05-13 15:23] LABS: Anisocytosis 1+; Macrocytosis 1+; Poikilocytosis 1+
[2025-05-13 15:24] LABS: Polychromasia 1+; Target Cells 1+; Tear Drop Cells 2+
--- NOTE | 2025-05-13 15:38 | CT_ITS ---
FINAL REPORT TECHNIQUE: The patient was injected with intravenous contrast. Axial images were obtained from the lung bases to the pubic symphysis by computed tomography. This study was performed with techniques to keep radiation doses as low as reasonably achievable, (ALARA). Individualized dose reduction techniques using automated exposure control or adjustment of mA and/or kV according to the patient's size were employed. CLINICAL HISTORY: Elevated transaminase, bilirubin, hx of etoh abuse FINDINGS: ABDOMEN: The lung bases are clear. The heart is normal in size. There is fatty infiltration of the liver. There are moderate changes of cirrhosis. Varices are noted. There are gallstones in the gallbladder. The spleen is unremarkable. No adrenal mass is present. The pancreas is normal. The kidneys are normal. The aorta is normal in caliber. There is no free fluid or adenopathy. PELVIS: The appendix is not identified. Urinary bladder is distended. There is no significant free fluid or adenopathy. IMPRESSION: Cirrhosis, fatty liver, and probable portal hypertension. Cholelithiasis. Reviewed, Interpreted and Dictated by Luigi Soto MD Transcribed by Federica Fuller Authenticated and [facility]
[2025-05-13] MEDS: SODIUM CHLORIDE 0.9% 10ML SYR (RAD ONLY) 10 ML IV (16:07)
[2025-05-13] MEDS: IOPAMIDOL-370 (76%);100ML BOTTLE 75 ML IV (16:07)
--- NOTE | 2025-05-13 18:04 | PC.NURSE ---
Mateus speaking with Nichelle Park, from GI office
[2025-05-13 18:17] LABS: Microscopic, Urine URINE MICROSCOPIC (MICROSCOPIC)
[2025-05-13 18:31] LABS: Color,Urine YELLOW (Yellow); Glucose,Urine (UA) TRACE (Negative); Ketones,Urine Negative (Negative); Leukocyte Esterase,Urine Negative (Negative); PH,Urine 5.0 (5.0-8.5); Protein,Urine Negative (Negative); Specific Gravity, Urine <= 1.005 (1.005-1.030); Urobilinogen,Urine 1.0 EU/dl (0.2)
[2025-05-13 18:34] LABS: Bilirubin,Urine 3+ (Negative)
[2025-05-13 18:51] LABS: Bacteria,Urine Trace /lpf; Squamous Epithelial Cell,Urine Occasional #/hpf (0-5); WBC,Urine Occasional #/hpf (0-3)
== END 2025-05-13 19:05 | disposition home or self-care (01) ==
PROVIDERS: Physician Assistant; Student in an Organized Health Care Education/Training Program; Emergency Provider Student in an Organized Health Care Education/Training Program; PCP Family Medicine
DX: K70.30 Alcoholic cirrhosis of liver without ascites (principal); D72.829 Elevated white blood cell count, unspecified; F10.11 Alcohol abuse, in remission; I10 Essential (primary) hypertension; E78.5 Hyperlipidemia, unspecified; Z86.79 Personal history of other diseases of the circulatory system; Z95.5 Presence of coronary angioplasty implant and graft
CPT/HCPCS: 71045; 74177; 80053; 80320; 81001; 82977; 83605; 83690; 83735; 85007; 85025; 85610; 85730; 87040; 99284; Q9967

== ENCOUNTER 2025-05-24 07:45 | Outpatient (RCR) | payer BC, SELFPAY ==
--- NOTE | 2025-05-24 09:11 | HMH.PTOPEV ---
PT Evaluation Rehab PT Outpatient Evaluation Start: 05/24/25 07:52 Freq: Status: Active Protocol: Document 05/24/25 07:53 MALOU (Rec: 05/24/25 09:10 MALOU [id number]) E-signed By Misa Dunn, PT Outpatient Therapy Subjective History Subjective History Pt is a 60 y/o male referred to PT for weakness. Pt reports gradual weakness and altered balance overtime. Pt reports altered endurance as well, states he is quick to fatigue and only able to walk ~100 yards before requiring a rest break due to fatigue and SOA. Pt states he was hospitalized on 04/30/25-05/02/25 due to alcohol withdrawal. Pt reports he was hallucinating due to this, but states this has since improved. Pt states he is 7 days sober. Pt reports main complaint of lower extremity weakness worse in his feet/ankles due to neuropathy. Pt reports altered balance with initially standing from sitting, prolonged standing in one place due to being wobbly, standing/walking on uneven ground and stair climbing. Pt states he sometimes uses a walking stick or walker if he is having a bad day. Pt denies dizziness, visual changes or light-headedness altering balance. Pt reports he has fallen 3 times this year and reports most recent fall in early April due to slipping on Cross nuts, denies serious injuries from the fall. Pt states he has to use a shower chair due to inability to stand and is unable to play with his grandkids or perform recreational activities due to such deficits. 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 Medical History: diastolic heart dysfunction, hyperlipidemia, GERD, CAD, cirrhosis, alcohol use disorder, peripheral neuropathy, COPD, hypertension, pancreatic mass New diagnosis of No cancer in past 12 months? Chief Complaint Weakness Symptoms Aggravated Standing,Physical Activity,Walking,Lifting By Current Functional Lifting,Housework,Standing,Squatting,Recreation Limitations Activity,Walking,Stairs,Balance Hip/Knee Eval MMT bilateral Hip Flexion Strength 4- Good- Grade Hip Abduction 4- Good- Strength Grade Hip Adduction 4- Good- Strength Grade Hip Extension 4- Good- Strength Grade Knee Extension 4 Good Strength Grade Knee Flexion 4- Good- Strength Grade PT Balance Eval Gait Assessment Assistive Device: None Gait Deviations Wide OCTAVIANO with mild sway Noted: Balance Assessment Static Balance EO: 30 Static Balance EC: 15 Romberg: Min. Assist Dynamic Balance Tandem Walk: Unable Turning 360 Degrees: Unsteady Five Times Sit-to- 17 Stand (5xSTS) in seconds: Functional Mobility Transfers: Independent Bed Mobility: Independent Lower Extremity Functional Index Activities Today, do you or would you have any difficulty at all with: a.Any of your usual Quite a bit of difficulty work, housework or school activities b. Your usual Extreme difficulty or unable to perform activity hobbies, recreational or sporting activities c. Getting into or Extreme difficulty or unable to perform activity out of the bath d. Walking between A little bit of difficulty rooms e. Putting on your Moderate difficulty shoes or socks f. Squatting Quite a bit of difficulty g. Lifting an object Moderate difficulty , like a bag of groceries from the floor h. Performing light A little bit of difficulty activities around your home i. Performing heavy Moderate difficulty activities around your home j. Getting into or A little bit of difficulty out of a car k. Walking 2 blocks Moderate difficulty l. Walking a mile Moderate difficulty m. Going up or down Extreme difficulty or unable to perform activity 10 stairs (about 1 flight of stairs) n. Standing for 1 Extreme difficulty or unable to perform activity hour o. Sitting for 1 A little bit of difficulty hour p. Running on even Extreme difficulty or unable to perform activity ground q. Running on uneven Quite a bit of difficulty ground r. Making sharp Quite a bit of difficulty turns while running fast s. Hopping Extreme difficulty or unable to perform activity t. Rolling over in A little bit of difficulty bed LEFI Score Lower Extremity 29 Functional Index Score Miscellaneous Dx PT Eval Objective Objective Observation: pt jaundice Vitals at rest: SpO2 95% on RA, HR 97 bpm Outpatient Therapy Assessment Impairments Problems/ Impaired Strength,Impaired Endurance,Impaired Transfers Impairmments ,Impaired Gait Pattern,Impaired Walking,Impaired Standing,Impaired Lifting,Impaired Household Care, Impaired Stair Climbing,Impaired Incline Stepping, Impaired Stepping on Uneven Surface,Impaired Squatting, Impaired Recreational Activities,Impaired Balance, Impaired Self Care/Self Management Prognosis Rehab Potential Good Clinical Impression Consistent with Yes Diagnosis PT Patient Goals PT Patient Goals PT Short Term 3 weeks: Patient Goals 1. Verbalize compliance with HEP to assist with progress. 2. Improve LEFS score to 35/80 to improve overall QOL/ function. 3. Perform NuStep/Bike x10' with RPE <5/10 and Spo2 >90 % on RA to assist with endurance 4. Improve 5x sit to stand to 15 or less to decrease fall risk. PT [employer] Functional Analyst Patient 6 weeks: Goals 1. Improve BLE MMT to 4-4+/5 grossly to assist with function. 2. Improve 5x sit to stand to 12 or less to decrease fall risk. 3. Report ability to supervisor lead burning shower without LOB to decrease fall risk & assist with return to PLOF. 4. Demonstrate ability to traverse 1 flight of stairs with HR reciprocally to assist with community navigation. 5. Perform NuStep/Bike x15' with RPE <5/10 and Spo2 >90 % to assist with endurance. 6. Improve LEFS score to at least 50/80 to assist with return to PLOF. Outpatient Therapy Plan of Care Treatment Plan May Include Therapeutic Exercise Yes Including Home Exercise Program Manual Therapy Yes Techniques Neuromuscular Re- Yes education Therapeutic Yes Activities to Return to Previous Functional/Work Level Gait Training Yes ADL/Self Care Yes Education Group Therapy for Yes Medicare Eval/Re-Eval Yes Aquatic Therapy Yes Frequency Times per week 2 Duration Number of Weeks 4-6 Addendums This patient is a No candidate for social or vocational rehab ? Patient/Guardian Yes verbally acknowledges understanding of treatment program and consents to further treatment? Patient/Guardian Yes verbally acknowledges understanding of diagnosis, prognosis and goals for treatment? Eval Complexity PT Charges 78690 - Moderate Complexity Shoulder/Elbow Eval Shoulder Objective Measurements Elbow Objective Measurements PHYSICIAN CERTIFICATION: I certify the specified therapy services for Pritesh Aguilar are required, authorized, and reviewed every 30 days.
== END 2025-05-24 23:59 | disposition home or self-care (01) ==
LOC: PT 07:45
PROVIDERS: PCP Family Medicine; Visit Provider Student in an Organized Health Care Education/Training Program
DX: R53.1 Weakness (principal)
CPT/HCPCS: 97162

== ENCOUNTER 2025-06-07 07:37 | Outpatient (CLI) | payer BC, SELFPAY ==
--- OUTSIDE RECORDS SUMMARY | 2024-04-01 06:00 | XMS_ITS ---
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 Name Role Phone Tobin Alvarez Primary Care Provider [phone] Allergies No Known Allergies Reason For Referral Reason COPD Diagnosis 1 Chronic obstructive pulmonary disease, unspecified COPD type (J44.9) Referral Organization [facility] Referring Provider First Name Tobin Jansen Referring Provider Last Name Antonio Referring Provider Speciality Family [facility] Referred Provider Tari Motta Referred Provider Specialty Pulmonary Di seases General Notes Alejandra Abraham 04/01/20 24 1:25:22 PM > faxed to [facility] Pulmonology Referral Priority Routine REASON FOR VISIT f/u Discharge [facility] Medications Medication SIG (Take, Route, Frequency, Duration) Notes Start Date End Date Status Potassium Chloride ER 20 MEQ TAKE 1 TABLET BY MOUTH TWICE A DAY FOR SUPPLEMENT 90; Duration: 90 Active Aspirin 81 MG 1 TAB(S) ORALLY ONCE A DAY Active Trelegy Ellipta 100-62.5-25 MCG/ACT 1 puff Inhalation Once a day 02/06/2024 Active Rosuvastatin Calcium 20 MG TAKE 1 TABLET BY MOUTH EVERY DAY FOR 30 DAYS; Duration: 90 Active Omeprazole 40 MG TAKE 1 CAPSULE BY [facility] TWICE A DAY; Duration: 90 Active dilTIAZem HCl ER 180 MG 1 cap(s) twice daily Active Plavix 75 MG 1 tab(s) orally once a day; Duration: 30 day(s) Active Metoprolol Succinate ER 50 MG 1 tablet Orally Two times a day Active Magnesium 400 MG 2 tablets with a dixon l Orally Twice a day Active Proventil HFA 108 (90 Base) MCG/ACT 2 puff(s) inhaled every 6 hours 10/22/2022 Active Testosterone 30 MG/ACT 2 pump(s) transde rmally once a day; Duration: 30 day(s) 04/01/2024 Active Vital Signs Blood pressure systolic 140 mm Hg 04/01/20 24 Blood pressure diastolic 88 mm Hg 024 Heart Rate 64 /min 04/01/2024 Height 70 in 04/01/2024 Weight 211 lbs 04/01/2024 BMI 30.27 kg/m2 04/01/2024 Encounters Encounter Location Date Provider Diagnosis [facility] [address] [place] [id number] 04/01/2024 Tobin Alvarez Dehydration E86.0 ; Renal insufficiency N28.9 ; Gallstones K80.20 and Chronic obstructive pulmonary disease, unspecified COPD type J44.9 Assessments Encounter Date Diagnosis (ICD Code) Assessment Notes Treatment Notes Treatment Clinical Notes Section Notes 04/01/2024 Dehydration (ICD-10 - E86.0) 04/01/2024 Renal insufficiency (ICD-10 - N28.9) 04/01/2024 Gallstones (ICD-10 - K80.20) 04/01/2024 Chronic obstructive pulmonary disease, unspecified COPD type (ICD-10 - J44.9) Plan Of Treatment Medication Medication Name Sig Start Date Stop Date Notes Testosterone 30 MG/ACT 2 pump(s) transde rmally once a day; Duration: 30 day(s) 04/01/2024 Referrals Referral Date Details 04/01/2024 04/01/2024, COPD, Sr inadh Annangi Next Appt Details Follow Up: prn, Reason: Progress Notes * ANA LILIA LIUDOB: 5 (60 yo M)Acc No.[id number]:04/01/2024 Progress Notes Patient: ANA LILIA FLYNN Provider: Tobin Alvarez M.D. :1965 A ge:59 Y S ex:Male Date:04/01/2024 Address:[address] [place] [address] Subjective: * Chief Complaints: * 1 . f/u Discharge [facility]. * HPI: H PI: Vini comes in for follow-up on recent brief hospital admission for dehydration. Please refer to discharge summary in chart for details. He states he is feeling better and trying to stay hydrated. C onstitutional: He tells me he is planning to file for disability related to his worsening COPD and chronic back pain. He has never seen a stereoplotter operator. * ROS: D ERMATOLOGY: no R felice. n o H pati. G ASTROENTEROLOGY: no N ausea. n o V omiting. n o D iarrhea.? U ROLOGY: no D ifficulty urinating. n o B lood in urine. * Medical History: A llergic rhinitis, Esophageal reflux, Tobacco abuse, 40 pack year history, quit in 2007, COPD, OA, HBP, HLP, ASCVD - s/p stent 02/2018, Sero-positive rheumatoid arthritis - Dr. Carrasquillo, Hyperuricemia, Alcoholic hepatitis , EtOH abuse, Chronic back pain due to DDD/DJD/spondylolisthesis. * Surgical History: n one . * Hospitalization/Major Diagno stic Procedure: [facility] - Abdominal Pain (Hepatic Cirrhosis) 06/17/2023. * Family History: F ather: , alzheimer. M other: , colon cancer. 2 sister(s) - healthy. 1 son(s) , 1 daughter(s) . . * Social History: C URRENT TOBACCO USE S moking Status: Patient does NOT smoke, Former Smoker: Yes, Quit smokin. C affeine: yes, frequency:coffee pespi tea. Exercise: no. Home smoke detector use: yes. Marital Status: . Past smoking status: Smoking status: Does not smoke, Former Smoker: Yes, Quit smokin, Smoking pack year history: 1. Alcohol: socially, Type: , Frequency: ,Years: , Determination:. * Medications: T aking Metoprolol Succinate ER 50 MG Tablet Extended Release 24 Hour 1 tablet Orally Two times a day , Taking Magnesium 400 MG Tablet 2 tablets with a meal Orally Twice a day , Taking Proventil HFA 108 (90 Base) MCG/ACT Aerosol Solution 2 puff(s) inhaled every 6 hours , Taking dilTIAZem HCl ER 180 MG Capsule Extended Release 24 Hour 1 cap(s) twice daily , Taking Plavix 75 MG Tablet 1 tab(s) orally once a day , Taking Potassium Chloride ER 20 MEQ Tablet Extended Release TAKE 1 TABLET BY MOUTH TWICE A DAY FOR SUPPLEMENT 90 , Taking Testosterone 30 MG/ACT Solution 2 pump(s) transdermally once a day , Taking Aspirin 81 MG DELAYED RELEASE TABLET 1 TAB(S) ORALLY ONCE A DAY , Taking Trelegy Ellipta 100-62.5-25 MCG/ACT Aerosol Powder Breath Activated 1 puff Inhalation Once a day , Taking Rosuvastatin Calcium 20 MG Tablet TAKE 1 TABLET BY MOUTH EVERY DAY FOR 30 DAYS , Taking Omeprazole 40 MG Capsule Delayed Release TAKE 1 CAPSULE BY MOUTH TWICE A DAY , Medication List reviewed and reconciled with the patient * Allergies: N .K.D.A. Objective: * Vitals: W t:211, Temp:98.4, BP:140/88, HR:64, O2 Sat:97% on RA, Nurse:ANSLEY, Ht: 70, BMI:30.27. * Examination: G eneral Examination: General Appearance: N AD. Color is normal. O ral cavity: n o lesions, mucosa moist and WNL, no erythema. H eart: R SR. L ungs: C oarse breath sounds which are generally diminished bilaterally. No rales or wheezes. E xtremities: n o leg edema. Assessment: * Assessment: 1. D ehydration - E86.0 (Primary) 2 . R enal insufficiency - N28.9 ? 3 . G allstones - K80.20 4 . C hronic obstructive pulmonary disease, unspecified COPD type - J44.9 Plan: * Treatment: 2. O thers Refill Testosterone Solution, 30 MG/ACT, 2 pump(s), transdermally, once a day, 30 day(s), 1, Refills 5. * Procedure Codes: 9 4760 PULSE OX * Follow Up: p rn * Images: Billing Information: * Visit Code: 79509 Office Visit, Est Pt., Level 3. * Procedure Codes: 56690 PULSE OX. * Electronic signature of Tobin Alvarez MD on 06/07/2025 at 07:40 AM EST Sign off status: Pending * Provider: Tobin Alvarez M.D. Date: 0 04/01/2024 Generated for Leydi piper/Abby/Vanceitting on: 1 08/07/2024 07:40 AM EST History and Physical Notes * Examination Category Sub-Category Detail Notes Category Not es General Examination Heart: RSR Lungs: Coarse breath sounds which are generally diminished bilaterally. No rales or wheezes Extremities: no leg edema General Appearance: NAD. Color is normal Oral cavity: no lesions, mucosa m oist and WNL, no erythema Consultation Request Notes Referral Date Referring Provider Referred Provider Not es 04/01/2024 Tobin Alvarez [place] COPD
--- OUTSIDE RECORDS SUMMARY | 2024-06-03 05:15 | XMS_ITS ---
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 Name Role Phone Antonio, R Inderjit Primary Care Provider [phone] Allergies No Known Allergies Results Component Value Reference Range Notes Influenza Screen (in house) Reviewed date:06/03/2024 11:02:28 AM Interpretation:Negative Performing Lab: Notes/Report: Negative results neg CBC Fingerstick (in house) Reviewed date:06/03/2024 11:04:12 AM Interpretation: Performing Lab: Notes/Report: wbc 13.5 3.5 - 10 lym 12.3 15 - 50 mid 3.6 2 - 15 gran 84.1 35 - 80 rbc 4.36 3.5 - 5.5 hgb 15.5 11.5 - 16.5 hct 46.3 35 - 55 mcv 106.3 75 - 100 mch 35.7 25 - 35 mchc 33.5 31 - 38 plat 201 100 - 400 Covid test (in house) Reviewed date:06/03/2024 11:02:57 AM Interpretation:Negative Performing Lab: Notes/Report: Negative Result: neg REASON FOR VISIT concerns of pnemonica, pressure in chest, drainage Medications Medication SIG (Take, Route, Frequency, Duration) Notes Start Date End Date Status Trelegy Ellipta 100-62.5-25 MCG/ACT 1 puff Inhalation Once a day 02/06/2024 Active Omeprazole 40 MG TAKE 1 CAPSULE BY [facility] TWICE A DAY; Duration: 90 Active Rosuvastatin Calcium 20 MG TAKE 1 TABLET BY MOUTH EVERY DAY FOR 30 DAYS; Duration: 90 Active Potassium Chloride ER 20 MEQ TAKE 1 TABLET BY MOUTH TWICE A DAY FOR SUPPLEMENT 90; Duration: 90 Active Testosterone 30 MG/ACT 2 pump(s) transde rmally once a day; Duration: 30 day(s) 04/01/2024 Active Plavix 75 MG 1 tab(s) orally once a day; Duration: 30 day(s) Active dilTIAZem HCl ER 180 MG 1 cap(s) twice daily Active Aspirin 81 MG 1 TAB(S) ORALLY ONCE A DAY Active Medrol 4 MG as directed Orally 06/03/2024 Active Cefuroxime Axetil 500 MG 1 tablet Orally every 12 hrs 06/03/2024 Active Albuterol Sulfate HFA 108 (90 Base) MCG/ACT 2 puffs four times a day as needed Active Metoprolol Succinate ER 50 MG 1 tablet Orally Two times a day Active Magnesium 400 MG 2 tablets with a dixon l Orally Twice a day Active Vital Signs Blood pressure systolic 144 mm Hg 06/03/20 24 Blood pressure diastolic 80 mm Hg 024 Heart Rate 94 /min 06/03/2024 Height 70 in 06/03/2024 Weight 207.4 lbs 06/03/2024 BMI 29.76 kg/m2 06/03/2024 Encounters Encounter Location Date Provider Diagnosis [facility] [facility] [address] [id number] 06/03/2024 Tobin Alvarez Acute bronchitis due to Hemophilus influenzae J20.1 Assessments Encounter Date Diagnosis (ICD Code) Assessment Notes Treatment Notes Treatment Clinical Notes Section Notes 06/03/2024 Acute bronchitis due to Hemophilus influenzae (ICD-10 - J20.1) Plan Of Treatment Medication Medication Name Sig Start Date Stop Date Notes Medrol 4 MG as directed Orally 06/03/2024 Cefuroxime Axetil 500 MG 1 tablet Orally every 12 hrs 05/06 Albuterol Sulfate HFA 108 (9 0 Base) MCG/ACT 2 puffs four times a day as needed Next Appt Details Follow Up: prn, Reason: Progress Notes * ANA LILIA LIUDOB: 5 (60 yo M)Acc No.[id number]:06/03/2024 Progress Notes Patient: ANA LILIA FLYNN Provider: Tobin Alvarez M.D. :1965 A ge:59 Y S ex:Male Date:06/03/2024 Address:[address] [place] [address], [place] [address] Subjective: * Chief Complaints: * 1 . Concerns of pnemonica, pressure in chest, drainage. * HPI: E NT/respiratory: 59 year old male presents with c/o cough P t presents today with c/o cough and chest congestion. Pt sts that he cannot lay down or sleep due to coughing. Pt sts that he always has a cough and chest congestion. Pt sts that his said he had a fever yesterday. Pt does c/o body aches and headache. Pt sts that when he coughs it feels like his head is going to split in half. Pt sts that he started feeling bad all of a sudden yesterday. Pt sts that he feels a lot of pressure in his chest and sts that it is not in his heart, it is in his lungs. c/o chest congestion. c/o body aches. * ROS: D ERMATOLOGY: no R felice. [...] * Hospitalization/Major Diagno stic Procedure: [facility] - Abdominal Pain (Hepatic Cirrhosis) 06/17/2023. * [...] meal Orally Twice a day , Taking dilTIAZem HCl ER 180 MG Capsule Extended Release 24 Hour 1 cap(s) twice daily , Taking Plavix 75 MG Tablet 1 tab(s) orally once a day , Taking Aspirin 81 [...] CAPSULE BY MOUTH TWICE A DAY , Taking Testosterone 30 MG/ACT Solution 2 pump(s) transdermally once a day , Taking Potassium Chloride ER 20 MEQ Tablet Extended Release TAKE 1 TABLET BY MOUTH TWICE A DAY FOR SUPPLEMENT 90 , Taking Albuterol Sulfate HFA 108 (90 Base) MCG/ACT Aerosol Solution INHALE 2 PUFFS EVERY 6 HOURS , Medication List reviewed and reconciled with the patient * Allergies: N .K.D.A. Objective: * Vitals: W t:207.4, Temp:98.6, BP:144/80, HR:94, O2 Sat:96% on RA, Nurse:ANSLEY, Ht: 70, BMI:29.76. * Examination: E NT/Respiratory: General Appearance: N AD. E ars: a uditory canals normal bilaterally, TM's WNL. N ose : congested. S inuses : non tender bilaterally. O ral cavity : erythema without exudate on pharynx. N cristal : n o cervical lymphadenopathy. H eart : R RR, normal S1 S2, no murmurs. L ungs: C oarse breath sounds which are generally diminished. No rales or wheezes. E xtremities : no edema. ? Assessment: * Assessment: 1. A cute bronchitis due to Hemophilus influenzae - J20.1 (Primary) Plan: * Treatment: Value Reference Range r esults neg * Randi Mcqueen 06/03/2024 11: 02:17 AM > results reviewed w/ pt in office ?LAB: CBC Fingerstick (in house) (Collection Date & Time - 06/03/2024)* Value Reference Range w bc 13.5 3.5 - 10 * l ym 12.3 15 - 50 * m id 3.6 2 - 15 * g ran 84.1 35 - 80 * r bc 4.36 3.5 - 5.5 * h gb 15.5 11.5 - 16.5 * h ct 46.3 35 - 55 * m cv 106.3 75 - 100 * m ch 35.7 25 - 35 * m chc 33.5 31 - 38 * p lat 201 100 - 400 * Randi Mcqueen 06/03/2024 11: 04:04 AM > results reviewed w/ pt in office ?LAB: Covid test (in house) (Collection Date & Time - 06/03/2024)?Negative* Value Reference Range R esult: neg * Randi Mcqueen 06/03/2024 11: 02:48 AM > results reviewed w/ pt in office 2.?Others? Refill Albuterol Sulfate HFA Aerosol Solution, 108 (90 Base) MCG/ACT, 2 puffs, four times a day as needed, 1, Refills 2.?? * Procedure Codes: 9 [address] [place], [address] Flu Test- Nasal Swab, Modifiers: QW , 22156 COVID TEST IN HOUSE, Modifiers: QW , 36979 CAPILLARY BLOOD DRAW, 6[address] CBC WITH AUTO DIFF * Follow Up: p rn * Images: Billing Information: * Visit Code: 81472 Office Visit, Est Pt., Level 4. * Procedure Codes: [address] [place]. [address] Flu Test- Nasal Swab. Modifiers: QW 02950 COVID TEST IN HOUSE. Modifiers: QW 47701 CAPILLARY BLOOD DRAW. 56561 CBC WITH AUTO DIFF. * Electronic signature of Tobin Alvarez MD on 06/07/2025 at 07:40 AM EST Sign off status: Pending * Provider: Tobin Alvarez M.D. Date: Generated for Juliai ng/Faxing/eTransmitting on: 08/07/2024 07:40 AM EST History and Physical Notes * HPI (History of Present Illness) Category Sub-Category Detail Notes Category Not es ENT/respiratory cough Pt presents toda y with c/o cough and chest congestion. Pt sts that he cannot lay down or sleep due to coughing. Pt sts that he always has a cough and chest congestion. Pt sts that his said he had a fever yesterday. Pt does c/o body aches and headache. Pt sts that when he coughs it feels like his head is going to split in half. Pt sts that he started feeling bad all of a sudden yesterday. Pt sts that he feels a lot of pressure in his chest and sts that it is not in his heart, it is in his lungs chest congestion body aches Examination Category Sub-Category Detail Notes Category Not es ENT/Respiratory Oral cavity : erythema without exudate on pharynx Sinuses : non tender bilateral ly Ears: auditory canals norm al bilaterally, TM's WNL Neck : no cervical lymphade nopathy Heart : RRR, normal S1 S2, n o murmurs Lungs: Coarse breath sounds which are generally diminished. No rales or wheezes Extremities : no edema General Appearance: NAD Nose : congested
--- OUTSIDE RECORDS SUMMARY | 2024-09-09 06:45 | XMS_ITS ---
Author Organization [facility] Address [address] [facility] [address] [id number] Care Team Providers Care Angular Developer Name Role Phone Tobin Alvarez Primary Care Provider Allergies No Known Allergies Results Component Value Reference Range Notes CBC Venipuncture (in house) Reviewed date:09/13/2024 02:15:53 PM Interpretation: Performing Lab: Notes/Report: wbc 11.0 3.5 - 10 lymph 6.4 15 - 50 mid 11.0 2 - 15 gran 82.6 35 - 80 rbc 3.65 3.5 - 5.5 hgb 13.5 11.5 - 16.5 hct 39.5 35 - 55 mcv 108.1 75 - 100 mch 37.1 25 - 35 mchc 34.3 31 - 38 platlet 234 100 - 400 Glycohemoglobin A1c (in hous e) Reviewed date:09/13/2024 02:15:53 PM Interpretation:4.6% Performing Lab: Notes/Report: 4.6% glycohemoglobin 4.6% 5 - 6.5 % P-Vitamin B12 Reviewed date:09/13/2024 02:15:53 PM Interpretation: Performing Lab: Notes/Report: Test performed by [facility] [address] [place] [address] , [address], [place] [address] Momo Renteria MD, Manager [facility] CLIA: [id number] Vitamin B12 768 816-1679 pg/mL P-Comprehensive Metabolic Pa emily (CMP) Reviewed date:09/13/2024 02:15:53 PM Interpretation: Performing Lab: Notes/Report: Test performed by [facility] [address] [place] [address] , [address], [place] [address] Momo Renteria MD, Manager [facility] CLIA: [id number] Sodium 136 135-145 mmol/L Potassium 3.3 3.5-5.3 mmol/L Chloride 98 97-108 mmol/L CO2 17 22-32 mmol/L Glucose 103 65-99 mg/dL BUN 5 6-20 mg/dL Creatinine 0.89 0.70-1.30 mg/dL Specimen affected by icterus. Results should be interpreted in conjunction with clinical presentation and history. Calcium 8.3 8.6-10.4 mg/dL eGFR by Creatinine 98 >59 mL/min/1.73m2 Protein 5.9 6.0-8.3 g/dL Specimen affected by icterus. Results should be interpreted in conjunction with clinical presentation and history. Albumin 3.7 3.5-5.3 g/dL Alkaline Phosphatase 283 40-129 IU/L ALT (SGPT) 191 <5-55 IU/L AST (SGOT) 657 <5-46 IU/L Bilirubin, Total 25.6 <0.2-1.2 mg/dL A/G Ratio 1.7 1.1-2.5 P-Magnesium Reviewed date:09/13/2024 02:15:53 PM Interpretation: Performing Lab: Notes/Report: Test performed by [facility] [address] [place] [address] , [address], [place] [address] Momo Renteria MD, Manager [facility] CLIA: [id number] Magnesium 1.5 1.6-2.4 mg/dL P-PSA Reviewed date:09/13/2024 02:15:53 PM Interpretation: Performing Lab: Notes/Report: Test performed by [facility] [address] [place] [address] , [address], [place] [address] Momo Renteria MD, Manager [facility] CLIA: [id number] PSA 1.40 <4.00 ng/mL Please note this is an ultrasensitive PSA assay with a lower limit of detection of 0.014 ng/mL. This test is performed by the Esa ECLIA methodology. Values obtained with different assay methods or kits cannot be directly compared. P-TSH Reviewed date:09/13/2024 02:15:53 PM Interpretation: Performing Lab: Notes/Report: Test performed by [facility] [address] [place] [address] , [address], [place] [address] Momo Renteria MD, Manager [facility] CLIA: [id number] TSH 2.30 0.43-5.25 mU/L P-Vitamin D 1,25-Dihydroxy a nd 25-Hydroxy Reviewed date:09/13/2024 02:15:53 PM Interpretation: Performing Lab: Notes/Report: Test performed by [facility] [address] [place] [address] , [address], [place] [address] Momo Renteria MD, Manager [facility] CLIA: [id number] Vitamin D 25-Hydroxy 20.7 30.0-100.0 ng/mL Interpretation of Vitamin D 25 OH: < 20 ng/mL - Deficiency 20 - 29 ng/mL - Insufficiency 30 - 100 ng/mL - Sufficiency > 100 ng/mL - Super-therapeutic- toxicity may occur above this level. Clinical correlation required. Vitamin D, 1, 25 Dihydroxy 27.5 19.9-79.3 pg/m L REASON FOR VISIT Weakness, Requesting Labs and CXR Medications Medication SIG (Take, Route, Frequency, Duration) Notes Start Date End Date Status Potassium Chloride ER 20 MEQ TAKE 1 TABLET BY MOUTH TWICE A DAY FOR SUPPLEMENT 90; Duration: 90 Active Albuterol Sulfate HFA 108 (90 Base) MCG/ACT 2 puffs four times a day as needed Active Rosuvastatin Calcium 20 MG TAKE 1 TABLET BY MOUTH EVERY DAY FOR 30 DAYS; Duration: 90 Active Testosterone 30 MG/ACT 2 pump(s) transde rmally once a day; Duration: 30 day(s) 04/01/2024 Active Trelegy Ellipta 100-62.5-25 MCG/ACT 1 puff Inhalation Once a day 02/06/2024 Not-Taking Magnesium 400 MG 2 tablets with a dixon l Orally Twice a day Active dilTIAZem HCl ER 180 MG 1 cap(s) twice daily Active Metoprolol Succinate ER 50 MG 1 tablet Orally Two times a day Active Aspirin 81 MG 1 TAB(S) ORALLY ONCE A DAY Active Plavix 75 MG 1 tab(s) orally once a day; Duration: 30 day(s) Active Omeprazole 40 MG TAKE 1 CAPSULE BY [facility] TWICE A DAY; Duration: 90 Active Problems Problem Type SNOMED Code ICD Code Onset Dates Problem Status W/U Status Risk Notes Problem Cirrhosis of liver (82913274) Cirrhosis of liver (K74.60) Active confirmed Problem Peripheral neuropathy (891279940) Peripheral neuropathy (G62.9) Active confirmed Vital Signs Blood pressure systolic 120 mm Hg 09/09/19 25 Blood pressure diastolic 74 mm Hg 025 Heart Rate 101 /min 09/09/2024 Height 70 in 09/09/2024 Weight 208.4 lbs 09/09/2024 BMI 29.90 kg/m2 09/09/2024 Encounters Encounter Location Date Provider Diagnosis [facility] [address] [facility] [address], [place] [id number] 09/09/2024 Tobin Inderjit Zhangfleet Fatigue R53.83 ; Jaundice R17 ; Cirrhosis of liver K74.60 ; COPD (chronic obstructive pulmonary disease) J44.9 ; Alcohol abuse F10.10 ; Alcoholic hepatitis without ascites K70.10 ; Peripheral neuropathy G62.9 ; Screening for prostate cancer Z12.5 ; HTN (hypertension) I10 ; Tobacco abuse Z72.0 and Screening for diabetes mellitus Z13.1 Assessments Encounter Date Diagnosis (ICD Code) Assessment Notes Treatment Notes Treatment Clinical Notes Section Notes 09/09/2024 Fatigue (ICD-10 - R53.83) 09/09/2024 Jaundice (ICD-10 - R17) 09/09/2024 Cirrhosis of liver (ICD-10 - K74.60) Keep appointment with GI next week for colonoscopy 09/09/2024 COPD (chronic obstructive pulmonary disease) (ICD-10 - J44.9) He needs a pulmonology consultation and has already been referred to Dr. Motta by cardiology. He is provided a month supply of Trelegy samples to resume pending pulmonology consultation. 09/09/2024 Alcohol abuse (ICD-10 - F10.10) 09/09/2024 Alcoholic hepatitis without ascites (ICD-10 - K70.10) 09/09/2024 Peripheral neuropathy (ICD-10 - G62.9) 09/09/2024 Screening for prostate cancer (ICD-10 - Z12.5) 09/09/2024 HTN (hypertension) (ICD-10 - I10) 09/09/2024 Tobacco abuse (ICD-10 - Z72.0) 09/09/2024 Screening for diabetes mellitus (ICD-10 - Z13.1) Plan Of Treatment Treatment Notes Assessment Notes Cirrhosis of liver Keep appointment wit ti GI next week for colonoscopy COPD (chronic obstructive pu lmonary disease) He needs a pulmonology consultation and has already been referred to Dr. Motta by cardiology. He is provided a month supply of Trelegy samples to resume pending pulmonology consultation. Pending Test Test Name Order Date CT SCAN : CHEST, LUNG CANCER SCREENING L OW DOSE 09/09/2024 Next Appt Details Follow Up: via phone to repo rt test results, Reason: Progress Notes * ANA LILIA LIUDOB: 5 (60 yo M)Acc No.[id number]:09/09/2024 Progress Notes Patient: ANA ILLIA FLYNN Provider: Tobin Alvarez M.D. :1965 A ge:59 Y S ex:Male Date:09/09/2024 Address:[address] [place] [address] Subjective: * Chief Complaints: * 1 . Weakness, Requesting Labs and CXR. * HPI: H PI: He comes in with a chief complaint of generalized fatigue and malaise that has been coming down over the past few weeks. He states his appetite is poor. He denies nausea, vomiting, or abdominal pain. He does report that his stool is very light in color. He is known to have some gallbladder issues. He has not lost weight but feels he has lost muscle mass. He is currently following with GI for his alcoholic cirrhosis and is scheduled for colonoscopy next week. He states he has significantly curtailed his alcohol use but has not quit entirely. He is not sleeping well at night. . C ardiology: He had a cardiology consultation for preop evaluation last week. He is scheduled for an echocardiogram and has been referred to pulmonology for his COPD. He is dyspneic with slight exertion. His insurance has not been covering his Trelegy and he is only using his albuterol inhaler. He has a chronic cough with sputum production. N eurology: He complains of ongoing numbness in both feet. * ROS: D ERMATOLOGY: no R felice. [...] 02/2018, Sero-positive rheumatoid arthritis - Dr. Carrasquillo, Alcoholic hepatitis , EtOH abuse, Chronic back [...] TAB(S) ORALLY ONCE A DAY , Taking Rosuvastatin Calcium 20 MG Tablet TAKE 1 TABLET BY MOUTH EVERY DAY FOR 30 DAYS , Taking Testosterone 30 MG/ACT Solution 2 pump(s) transdermally once a day , Taking Potassium Chloride ER 20 MEQ Tablet Extended Release TAKE 1 TABLET BY MOUTH TWICE A DAY FOR SUPPLEMENT 90 , Taking Albuterol Sulfate HFA 108 (90 Base) MCG/ACT Aerosol Solution 2 puffs four times a day as needed , Taking Omeprazole 40 MG Capsule Delayed Release TAKE 1 CAPSULE BY MOUTH TWICE A DAY , Not-Taking Trelegy Ellipta 100-62.5-25 MCG/ACT Aerosol Powder Breath Activated 1 puff Inhalation Once a day , Medication List reviewed and reconciled with the patient * Allergies: N .K.D.A. Objective: * Vitals: W t:208.4, Temp:98.4, BP:120/74, HR:101, O2 Sat:95% on RA, Nurse:ANNELIESE, Ht: 70, BMI:29.90. * Examination: C ardiology: General Appearance: H e appears not to feel well but no acute distress.. H EENT: S clera appear mildly icteric. H eart sounds: R RR, normal S1, S2. M urmur, click , gallop: n one. L ungs: G enerally diminished breath sounds. No rales or wheezes. A bdomen: S lightly distended but soft with no tenderness.. E xtremities: n o leg edema. S kin has a bronze color. Assessment: * Assessment: 1. F atigue - R53.83 (Primary) 2 . J aundice - R17 3 . C irrhosis of liver - K74.60 4 . C OPD (chronic obstructive pulmonary disease) - J44.9 5 . A lcohol abuse - F10.10 6 . A lcoholic hepatitis without ascites - K70.10 7 . P eripheral neuropathy - G62.9 8 .?Screening for prostate cancer - Z12.5 9 . H TN (hypertension) - I10 ? 1 0. T obacco abuse - Z72.0 1 1. S creening for diabetes mellitus - Z13.1 Plan: * Treatment: Value Reference Range V itamin B12 927 117-7929 - pg/mL * Katherine Sauer 12:59:19 PM >See phone encounter Tobin Alvarez 09/13/2024 2:15:41 PM >See phone encounter ?LAB: P-Vitamin D 1,25-Dihydroxy and 25-Hydroxy (Collection Date & Time - 09/09/2024 11:21 AM)* Value Reference Range V itamin D 25-Hydroxy 20.7 L 30.0-100.0 - ng/mL * V itamin D, 1, 25 Dihydroxy 27.5 19.9-79.3 - pg /mL * Katherine Sauer 12:59:19 PM >See phone encounter Tobin Alvarez 09/13/2024 2:15:41 PM >See phone encounter ?LAB: CBC Venipuncture (in house) (Collection Date & Time - 09/09/2024)* Value Reference Range w bc 11.0 3.5 - 10 * l ymph 6.4 15 - 50 * m id 11.0 2 - 15 * g ran 82.6 35 - 80 * r bc 3.65 3.5 - 5.5 * h gb 13.5 11.5 - 16.5 * h ct 39.5 35 - 55 * m cv 108.1 75 - 100 * m ch 37.1 25 - 35 * m chc 34.3 31 - 38 * p latlet 234 100 - 400 * Alena Boo 09/09/2024 12:42: 30 PM > Katherine Sauer 09/13/2024 12:59:19 PM >See phone encounter Tobin Alvarez 09/13/2024 2:15:41 PM >See phone encounter 2.?Jaundice?LAB: P-Comprehensive Metabolic Panel (CMP) (Collection Date & Time - 09/09/2024 11:21 AM)* Value Reference Range A /G Ratio 1.7 1.1-2.5 - * A lbumin 3.7 3.5-5.3 - g/dL * A lkaline Phosphatase 283 H 40-129 - IU/L * A LT (SGPT) 191 H <5-55 - IU/L * A ST (SGOT) 657 H <5-46 - IU/L * B ilirubin, Total 25.6 H <0.2-1.2 - mg/dL * B UN 5 L 6-20 - mg/dL * C alcium 8.3 L 8.6-10.4 - mg/dL * C hloride 98 97-108 - mmol/L * C O2 17 L 22-32 - mmol/L * C reatinine 0.89 0.70-1.30 - mg/dL * G lucose 103 H 65-99 - mg/dL * P otassium 3.3 L 3.5-5.3 - mmol/L * S odium 136 135-145 - mmol/L * P rotein 5.9 L 6.0-8.3 - g/dL * e GFR by Creatinine 98 >59 - mL/min/1.73m2 * Katherine Sauer 12:59:19 PM >See phone encounter AntonioTobin 09/13/2024 2:15:41 PM >See phone encounter 3.?Cirrhosis of liver? Notes: Keep appointment with GI next week for colonoscopy??4.?COPD (chronic obstructive pulmonary disease)? Notes: He needs a pulmonology consultation and has already been referred to Dr. Motta by cardiology. He is provided a month supply of Trelegy samples to resume pending pulmonology consultation. ?5.?Alcoholic hepatitis without ascites?LAB: P-Comprehensive Metabolic Panel (CMP) (Collection Date & Time - 09/09/2024 11:21 AM)* Value Reference Range A /G Ratio 1.7 1.1-2.5 - * A lbumin 3.7 3.5-5.3 - g/dL * A lkaline Phosphatase 283 H 40-129 - IU/L * A LT (SGPT) 191 H <5-55 - IU/L * A ST (SGOT) 657 H <5-46 - IU/L * B ilirubin, Total 25.6 H <0.2-1.2 - mg/dL * B UN 5 L 6-20 - mg/dL * C alcium 8.3 L 8.6-10.4 - mg/dL * C hloride 98 97-108 - mmol/L * C O2 17 L 22-32 - mmol/L * C reatinine 0.89 0.70-1.30 - mg/dL * G lucose 103 H 65-99 - mg/dL * P otassium 3.3 L 3.5-5.3 - mmol/L * S odium 136 135-145 - mmol/L * P rotein 5.9 L 6.0-8.3 - g/dL * e GFR by Creatinine 98 >59 - mL/min/1.73m2 * CamachoKatherine Lowry 12:59:19 PM >See phone encounter Tobin Alvarez Inderjit 09/13/2024 2:15:41 PM >See phone encounter 6.?Peripheral neuropathy?LAB: P-Vitamin B12 (Collection Date & Time - 09/09/2024 11:21 AM)* Value Reference Range V itamin B12 756 109-6432 - pg/mL * Camacho,Katherine Lowry 12:59:19 PM >See phone encounter Tobin Alvarez Inderjit 09/13/2024 2:15:41 PM >See phone encounter ?LAB: P-Magnesium (Collection Date & Time - 09/09/2024 11:21 AM)* Value Reference Range M agnesium 1.5 L 1.6-2.4 - mg/dL * Katherine Sauer 12:59:19 PM >See phone encounter AntonioTobin Inderjit 09/13/2024 2:15:41 PM >See phone encounter ?LAB: P-TSH (Collection Date & Time - 09/09/2024 11:21 AM)* Value Reference Range T SH 2.30 0.43-5.25 - mU/L * CamachoKatherine Lowry 12:59:19 PM >See phone encounter Tobin Alvarez Inderjit 09/13/2024 2:15:41 PM >See phone encounter ?LAB: P-Vitamin D 1,25-Dihydroxy and 25-Hydroxy (Collection Date & Time - 09/09/2024 11:21 AM)* Value Reference Range V itamin D 25-Hydroxy 20.7 L 30.0-100.0 - ng/mL * V itamin D, 1, 25 Dihydroxy 27.5 19.9-79.3 - pg /mL * Camacho,Katherine Lowry 12:59:19 PM >See phone encounter Tobin Alvarez Inderjit 09/13/2024 2:15:41 PM >See phone encounter ?LAB: Glycohemoglobin A1c (in house) (Collection Date & Time - 09/09/2024)? 4.6%* Value Reference Range g lycohemoglobin 4.6% 5 - 6.5 % * Alena Boo 09/09/2024 12:41: 32 PM > Camacho,Katherine Lowry 09/13/2024 12:59:19 PM >See phone encounter Tobin Alvarez 09/13/2024 2:15:41 PM >See phone encounter 7.?Screening for prostate cancer?LAB: P-PSA (Collection Date & Time - 09/09/2024 11:21 AM)* Value Reference Range P SA 1.40 <4.00 - ng/mL * Katherine Sauer 12:59:19 PM >See phone encounter AntonioTobin 09/13/2024 2:15:41 PM >See phone encounter 8.?Tobacco abuse?Imaging: CT SCAN : CHEST, LUNG CANCER SCREENING LOW DOSE* Alejandra Abraham 09/09/2024 1:58:1 5 PM > auth#[id number]; valid 09/09/2024 through 10/08/2024; CPT code 33332 * Procedure Codes: 9 4760 [place], [address] CBC WITH AUTO DIFF, 16380 GLYCATED HEMOGLOBIN TEST, Modifiers: QW , 3044F HG A1C LEVEL LT 7.0%, 3074F SYST BP LT 130 MM HG, 3078F DIAST BP < 80 MM HG * Follow Up: v ia phone to report test results * Images: Billing Information: * Visit Code: 73322 Office Visit, Est Pt., Level 4. * Procedure Codes: [address] [place]. [address] CBC WITH AUTO DIFF. 24273 GLYCATED HEMOGLOBIN TEST. Modifiers: QW 3044F HG A1C LEVEL LT 7.0%. 3074F SYST BP LT 130 MM HG. 3078F DIAST BP < 80 MM HG. * Electronic signature of Tobin Alvarez MD on 06/07/2025 at 07:41 AM EST Sign off status: Pending * Provider: Tobin Alvarez M.D. Date: 0 09/09/2024 Generated for Leydi piper/Abby/eTjoshsmitting on: 1 08/07/2024 07:41 AM EST History and Physical Notes * Examination Category Sub-Category Detail Notes Category Not es Cardiology Lungs: Generally dimini shed breath sounds. No rales or wheezes Skin has a bronze color HEENT: Sclera appear mildly icteric Heart sounds: RRR, normal S1, S2 Abdomen: Slightly distended b ut soft with no tenderness. Extremities: no leg edema Murmur, click , gallop: none General Appearance: He appears not to fe el well but no acute distress.
--- OUTSIDE RECORDS SUMMARY | 2024-10-12 04:30 | XMS_ITS ---
Author Organization [facility] Address 1210 [facility] [address] [id number] Care Team Providers Care Chief Of Staff Doctor Name Role Phone Tobin Alvarez Primary Care Provider Allergies No Known Allergies Results Component Value Reference Range Notes CBC Venipuncture (in house) Reviewed date:10/18/2024 10:35:22 AM Interpretation:Abnormal Performing Lab: Notes/Report: Abnormal wbc 14.0 3.5 - 10 lymph 5.6 15 - 50 mid 9.0 2 - 15 gran 85.4 35 - 80 rbc 3.62 3.5 - 5.5 hgb 12.9 11.5 - 16.5 hct 36.8 35 - 55 mcv 101.6 75 - 100 mch 35.6 25 - 35 mchc 35.0 31 - 38 platlet 476 100 - 400 P-Comprehensive Metabolic Pa emily (CMP) Reviewed date:10/18/2024 10:35:22 AM Interpretation:Abnormal Performing Lab: Notes/Report: Test performed by [facility] [address] [place] [address] , [address], [place] [address] Momo Renteria MD, Printing Specialist CLIA: [id number] Sodium 131 135-145 mmol/L Potassium 3.4 3.5-5.3 mmol/L Chloride 96 97-108 mmol/L CO2 21 22-32 mmol/L Glucose 97 65-99 mg/dL BUN 7 6-20 mg/dL Creatinine 1.02 0.70-1.30 mg/dL Specimen affected by icterus. Results should be interpreted in conjunction with clinical presentation and history. Calcium 7.9 8.6-10.4 mg/dL eGFR by Creatinine 84 >59 mL/min/1.73m2 Protein 4.7 6.0-8.3 g/dL Specimen affected by icterus. Results should be interpreted in conjunction with clinical presentation and history. Albumin 3.1 3.5-5.3 g/dL Alkaline Phosphatase 249 40-129 IU/L ALT (SGPT) 254 <5-55 IU/L AST (SGOT) 360 <5-46 IU/L Bilirubin, Total 30.1 <0.2-1.2 mg/dL A/G Ratio 1.9 1.1-2.5 REASON FOR VISIT [facility] d/c f/u Medications Medication SIG (Take, Route, Frequency, Duration) Notes Start Date End Date Status Potassium Chloride ER 20 MEQ TAKE 1 TABLET BY MOUTH TWICE A DAY FOR SUPPLEMENT 90; Duration: 90 Active Albuterol Sulfate HFA 108 (90 Base) MCG/ACT 2 puffs four times a day as needed Active dilTIAZem HCl ER 180 MG 1 cap(s) twice daily Active Aspirin 81 MG 1 TAB(S) ORALLY ONCE A DAY Active Tiotropium [place] Monohydrate 2.5 MCG/ACT 2 puffs Inhalation Once a day Active Folic Acid 1 MG 1 tablet Orally Once a day Active Thiamine HCl 100 MG 1 tablet Orally Once a day; Duration: 30 day(s) Active rOPINIRole HCl 0.5 MG 1 tablet 1 to 3 ho urs before bedtime Orally Once a day; Duration: 30 day(s) Active Tamsulosin HCl 0.4 MG 1 capsule Orally O nce a day; Duration: 30 day(s) Active Budesonide-Formoterol Fumarate 160-4.5 MCG/ACT as directed Inhalation Active Omeprazole 40 MG TAKE 1 CAPSULE BY MO UT TWICE A DAY; Duration: 90 Active Testosterone 30 MG/ACT 2 pump(s) transde rmally once a day; Duration: 30 day(s) 10/05/2024 Active chlorproMAZINE HCl 25 MG 1 tablet Orally Three times a day 10/12/2024 Active Rosuvastatin Calcium 20 MG TAKE 1 TABLET BY MOUTH EVERY DAY FOR 30 DAYS; Duration: 90 Not-Taking Vital Signs Blood pressure systolic 108 mm Hg 10/13/19 25 Blood pressure diastolic 60 mm Hg 025 Heart Rate 95 /min 10/12/2024 Height 70 in 10/12/2024 Weight 185.2 lbs 10/12/2024 BMI 26.57 kg/m2 10/12/2024 Encounters Encounter Location Date Provider Diagnosis [facility] [address] [place] [phone] 10/12/2024 Tobin Alvarez Hiccups R06.6 ; Alcoholic hepatitis without ascites K70.10 and Cirrhosis of liver K74.60 Assessments Encounter Date Diagnosis (ICD Code) Assessment Notes Treatment Notes Treatment Clinical Notes Section Notes 10/12/2024 Hiccups (ICD-10 - R06.6) 10/12/2024 Alcoholic hepatitis without ascites (ICD-10 - K70.10) 10/12/2024 Cirrhosis of liver (ICD-10 - K74.60) Keep follow-up with Hepatology clinic at Plan Of Treatment Medication Medication Name Sig Start Date Stop Date Notes chlorproMAZINE HCl 25 MG 1 tablet Orally Three times a day 10/12/2024 Treatment Notes Assessment Notes Cirrhosis of liver Keep follow-up with Hepatology clinic at Next Appt Details Follow Up: 2 Months, Reason: Progress Notes * ALEXA ANA LILIADOB: 5 (60 yo M)Acc No.[id number]:10/12/2024 Patient: ANA LILIA FLYNN Provider: Tobin Alvarez M.D. :1965 A ge:59 Y S ex:Male Date:10/12/2024 Address:[address] [place] [address] Subjective: * Chief Complaints: * 1 . Good Sim d/c f/u. * HPI: H PI: 59 year old male presents with c/o Here for follow up on: P t is here today for a d/c f/u from the hospital. . G astroenterology: Vini returns for follow-up on recent admission to [facility] and transferred to for acute alcoholic hepatitis and liver failure. Please refer to discharge summaries in chart. Since discharge from , he has had follow-up with the transplant team and states he received a letter in the mail yesterday notifying him that he had been taken off the transplant list. He states he has had no alcohol since leaving the hospital and has no desire to drink. He has had a case of hiccups persistently for the past week which interferes with sleep and interferes with his appetite. He states his bowel movements are normal. No nausea or vomiting. * ROS: D ERMATOLOGY: no R felice. [...] ,Years: , Determination:. * Medications: T aking Folic Acid 1 MG Tablet 1 tablet Orally Once a day , Taking Budesonide-Formoterol Fumarate 160-4.5 MCG/ACT Aerosol as directed Inhalation , Taking rOPINIRole HCl 0.5 MG Tablet 1 tablet 1 to 3 hours before bedtime Orally Once a day , Taking Tamsulosin HCl 0.4 MG Capsule 1 capsule Orally Once a day , Taking Thiamine HCl 100 MG Tablet 1 tablet Orally Once a day , Taking Tiotropium [place] Monohydrate 2.5 MCG/ACT Aerosol Solution 2 puffs Inhalation Once a day , Taking dilTIAZem HCl ER 180 MG Capsule Extended Release 24 Hour 1 cap(s) twice daily , Taking Aspirin 81 MG DELAYED RELEASE TABLET 1 TAB(S) ORALLY ONCE A DAY , Taking Potassium Chloride ER 20 MEQ [...] 2 pump(s) transdermally once a day , Not-Taking Rosuvastatin Calcium 20 MG Tablet TAKE 1 TABLET BY MOUTH EVERY DAY FOR 30 DAYS , Medication List reviewed and reconciled with the patient * Allergies: N .K.D.A. Objective: * Vitals: W t:185.2, Temp:98.5, BP:108/60, HR:95, O2 Sat:97% on RA, Nurse:[facility], Ht: 70, BMI:26.57. * Examination: C ardiology: General Appearance: H e appears not to feel well. Flat affect. H eart sounds: R RR, normal S1, S2. M urmur, click , gallop: n one. L ungs: G enerally diminished breath sounds. No rales or wheezes. A bdomen: S lightly distended but soft with no tenderness.. E xtremities: t race edema left ankle. S kin has a bronze color. Assessment: * Assessment: 1. H iccups - R06.6 (Primary) 2 . A lcoholic hepatitis without ascites - K70.10 3 . C irrhosis of liver - K74.60 Plan: * Treatment: 2. A lcoholic hepatitis without ascites L AB: P-Comprehensive Metabolic Panel (CMP) (Collection Date & Time - 10/12/2024 09:03 AM) A bnormal Value Reference Range A /G Ratio 1.9 1.1-2.5 - * A lbumin 3.1 L 3.5-5.3 - g/dL * A lkaline Phosphatase 249 H 40-129 - IU/L * A LT (SGPT) 254 H <5-55 - IU/L * A ST (SGOT) 360 H <5-46 - IU/L * B ilirubin, Total 30.1 H <0.2-1.2 - mg/dL * B UN 7 6-20 - mg/dL * C alcium 7.9 L 8.6-10.4 - mg/dL * C hloride 96 L 97-108 - mmol/L * C O2 21 L 22-32 - mmol/L * C reatinine 1.02 0.70-1.30 - mg/dL * G lucose 97 65-99 - mg/dL * P otassium 3.4 L 3.5-5.3 - mmol/L * S odium 131 L 135-145 - mmol/L * P rotein 4.7 L 6.0-8.3 - g/dL * e GFR by Creatinine 84 >59 - mL/min/1.73m2 * Abi Wyatt 10/13/2024 08:4 6:35 AM > See phone encounter Tobin Alvarez 10/18/2024 10:35:07 AM >See phone encounter 3.?Cirrhosis of liver? Notes: Keep follow-up with Hepatology clinic at ?? * Labs: * L ab: CBC Venipuncture (in house) (Collection Date & Time - 10/12/2024) A bnormal Value Reference Range w bc 14.0 3.5 - 10 * l ymph 5.6 15 - 50 * m id 9.0 2 - 15 * g ran 85.4 35 - 80 * r bc 3.62 3.5 - 5.5 * h gb 12.9 11.5 - 16.5 * h ct 36.8 35 - 55 * m cv 101.6 75 - 100 * m ch 35.6 25 - 35 * m chc 35.0 31 - 38 * p latlet 476 100 - 400 * Alena Boo 10/12/2024 10:18 :39 AM > Abi Wyatt 10/13/2024 08:46:35 AM > See phone encounter Tobin Alvarez 10/18/2024 10:35:07 AM >See phone encounter * Procedure Codes: 8 5025 CBC WITH AUTO DIFF, 86278 VENIPUNCT, ROUTINE* * Follow Up: 2 Months * Images: Billing Information: * Visit Code: 08262 Office Visit, Est Pt., Level 4. * Procedure Codes: 22269 CBC WITH AUTO DIFF. 95080 VENIPUNCT, ROUTINE*. * Electronic signature of Tobin Alvarez MD on 06/07/2025 at 07:39 AM EST Sign off status: Pending * Provider: Tobin Alvarez M.D. Date: 0 10/12/2024 Generated for Leydi piper/Abby/Joselynransmitting on: 1 08/07/2024 07:39 AM EST History and Physical Notes * HPI (History of Present Illness) Category Sub-Category Detail Notes Category Not es Gastroenterology He has had a case of hiccups persistently for the past week which interferes with sleep and interferes with his appetite. He states his bowel movements are normal. No nausea or vomiting. HPI Here for follow up on: Pt is here today for a d/c f/u from the [facility]. Examination Category Sub-Category Detail Notes Category Not es Cardiology Lungs: Generally dimini shed breath sounds. No rales or wheezes Skin has a bronze color HEENT: Heart sounds: RRR, normal S1, S2 Abdomen: Slightly distended b ut soft with no tenderness. Extremities: trace edema left ank le Murmur, click , gallop: none General Appearance: He appears not to fe el well. Flat affect
--- OUTSIDE RECORDS SUMMARY | 2024-10-18 09:00 | XMS_ITS ---
Author Organization [facility] Address [address] [place] [phone] Care Team Providers Care Drawing Frame Tender Name Role Phone Tobin Alvarez Primary Care Provider [phone] Salvador Herrera [phone] Allergies No Known Allergies REASON FOR VISIT Possible Cellulitis, Pain in Left Leg Encounters Encounter Location Date Provider Diagnosis [facility] [address] [place] [address] [employer] [place] [phone] 10/18/2024 Salvador Herrera Plan Of Treatment No Information Progress Notes * ANA LILIA LIUDOB: 5 (60 yo M)Acc No.[id number]:10/18/2024 Progress Notes Patient: ANA LILIA FLYNN Provider: Orlando Herrera M.D. :1965 A ge:59 Y S ex:Male Date:10/18/2024 Address:[address] [place] [address] Pcp:Tobin Alvarez Subjective: * Chief Complaints: * 1 . Possible Cellulitis, Pain in Left Leg. * Medical History: A llergic rhinitis, Esophageal reflux, Tobacco abuse, 40 pack year history, quit in 2007, COPD, OA, HBP, HLP, ASCVD - s/p stent 02/2018, Sero-positive rheumatoid arthritis - Dr. Carrasquillo, Alcoholic hepatitis , EtOH abuse, Chronic back pain due to DDD/DJD/spondylolisthesis. * Surgical History: D enies Past Surgical History. * Hospitalization/Major Diagno stic Procedure: [facility] [...] Type: , Frequency: ,Years: , Determination:. * Allergies: N .K.D.A. Objective: * Vitals: Assessment: Plan: * Treatment: * Images: Billing Information: * Visit Code: * Procedure Codes: * Electronic signature of Sara Herrera MD on 06/07/2025 at 07:41 AM EST Sign off status: Pending * Provider: Orlando Herrera M.D. Date: 0 10/18/2024 Generated for Leydi piper/Abby/Vanceitting on: 1 08/07/2024 07:41 AM EST
--- OUTSIDE RECORDS SUMMARY | 2024-10-21 06:45 | XMS_ITS ---
Author Organization [facility] Address [address] [facility] [address] [facility] [address] [place] [id number] Care Team Providers Care Caregivers Non Medical Name Role Phone Tobin Alvarez Primary Care Provider Allergies No Known Allergies Results Component Value Reference Range Notes P-Basic Metabolic Panel (BMP ) Reviewed date:10/26/2024 09:02:42 AM Interpretation: Performing Lab: Notes/Report: Test performed by [facility] [address] [place], [place] [address] , [address], [place] [address] Momo Renteria MD, Hair Weaver CLIA: [id number] Sodium 136 135-145 mmol/L Potassium 3.6 3.5-5.3 mmol/L Chloride 102 97-108 mmol/L CO2 22 22-32 mmol/L Glucose 95 65-99 mg/dL BUN 6 6-20 mg/dL Creatinine 0.95 0.70-1.30 mg/dL Specimen affected by icterus. Results should be interpreted in conjunction with clinical presentation and history. Calcium 8.1 8.6-10.4 mg/dL eGFR by Creatinine 92 >59 mL/min/1.73m2 P-Magnesium Reviewed date:10/26/2024 09:02:42 AM Interpretation: Performing Lab: Notes/Report: Test performed by [facility] [address] [place], [place] [address], [address], [place] [address] Momo Renteria MD, Hair Weaver CLIA: [id number] Magnesium 2.0 1.6-2.4 mg/dL P-Phosphorus Reviewed date:10/26/2024 09:02:42 AM Interpretation: Performing Lab: Notes/Report: Test performed by [facility] [employer] [address] [facility] , [address], [place] [address] Momo Renteria MD, Hair Weaver CLIA: [id number] Phosphorus 1.9 2.5-4.5 mg/dL REASON FOR VISIT [facility] ER Follow Up Medications Medication SIG (Take, Route, Frequency, Duration) Notes Start Date End Date Status Rosuvastatin Calcium 20 MG TAKE 1 TABLET BY MOUTH EVERY DAY FOR 30 DAYS; Duration: 90 Not-Taking Albuterol Sulfate HFA 108 (90 Base) MCG/ACT 2 puffs four times a day as needed Active Potassium Chloride ER 20 MEQ TAKE 1 TABLET BY MOUTH TWICE A DAY FOR SUPPLEMENT 90; Duration: 90 Active Testosterone 30 MG/ACT 2 pump(s) transde rmally once a day; Duration: 30 day(s) 10/05/2024 Active Omeprazole 40 MG TAKE 1 CAPSULE BY [facility] TWICE A DAY; Duration: 90 Active Thiamine HCl 100 MG 1 tablet Orally Once a day; Duration: 30 day(s) Active Tamsulosin HCl 0.4 MG 1 capsule Orally O nce a day; Duration: 30 day(s) Active dilTIAZem HCl ER 180 MG 1 cap(s) twice daily Active Tiotropium [place] Monohydrate 2.5 MCG/ACT 2 puffs Inhalation Once a day Active Aspirin 81 MG 1 TAB(S) ORALLY ONCE A DAY Active rOPINIRole HCl 0.5 MG 1 tablet 1 to 3 ho urs before bedtime Orally Once a day; Duration: 30 day(s) Active Budesonide-Formoterol Fumarate 160-4.5 MCG/ACT as directed Inhalation Active Furosemide 40 MG 1 tablet Orally Once a day prn swelling 10/21/2024 Active Folic Acid 1 MG 1 tablet Orally Once a day Active chlorproMAZINE HCl 25 MG 1 tablet Orally Three times a day 10/12/2024 Active traMADol HCl 50 MG 1 tab(s) Orally q6h prn 025 Active Problems Problem Type SNOMED Code ICD Code Onset Dates Problem Status W/U Status Risk Notes Problem Hypophosphatemia (3632773) Hypophosphatemia (E83.39) Active confirmed Vital Signs Blood pressure systolic 112 mm Hg 10/22/19 25 Blood pressure diastolic 60 mm Hg 025 Heart Rate 108 /min 10/21/2024 Height 70 in 10/21/2024 Weight 190.2 lbs 10/21/2024 BMI 27.29 kg/m2 10/21/2024 Encounters Encounter Location Date Provider Diagnosis [facility] [address] [facility] [address] [place] [id number] 10/21/2024 Tobin Alvarez Leg edema R60.0 ; HT N (hypertension) I10 ; Hypophosphatemia E83.39 and Leg pain M79.606 Assessments Encounter Date Diagnosis (ICD Code) Assessment Notes Treatment Notes Treatment Clinical Notes Section Notes 10/21/2024 Leg edema (ICD-10 - R60.0) 10/21/2024 HTN (hypertension) (ICD-10 - I10) 10/21/2024 Hypophosphatemia (ICD-10 - E83.39) 10/21/2024 Leg pain (ICD-10 - M79.606) Plan Of Treatment Medication Medication Name Sig Start Date Stop Date Notes Furosemide 40 MG 1 tablet Orally Once a day prn swelling 0 10/21/2024 traMADol HCl 50 MG 1 tab(s) Orally q6h prn 10/21/2024 Next Appt Details Follow Up: With GI clinic next week and here in 2 weeks, Reason: Progress Notes * BEBADioneANA LILIADOB: 5 (60 yo M)Acc No.[id number]:10/21/2024 Progress Notes Patient: ANA LILIA FLYNN Provider: Tobin Alvarez M.D. :1965 A ge:59 Y S ex:Male Date:10/21/2024 Address:[address] [place] [address], [place] [address] Subjective: * Chief Complaints: * 1 . [facility] ER Follow Up. * HPI: H PI: 59 year old male presents with c/o Here for follow up on: P t is here today for a f/u from [facility] ER. Pt was seen at the ER on 10/18 for swelling in both feet and feeling fatigue. Pt sts both his legs are still swollen. Pt sts the left is worse than the right, and sts the is having lots of pain in both legs. Pt sts he has tried elevating them and sts it has not helped. Pt sts he is unable to sleep at night due to this. G astroenterology: ER record reviewed. Generally, his labs have improved. His total bilirubin is down to 19.9. He remains abstinent from alcohol. His hiccups have resolved. Appetite has improved somewhat. C ardiology: Denies : Chest Pain. D enies : Short of Breath. D enies : Palpitations. * ROS: D ERMATOLOGY: no R felice. [...] . * Hospitalization/Major Diagno stic Procedure: U [facility] - Abdominal Pain (Hepatic Cirrhosis) 06/17/2023. [...] ,Years: , Determination:. * Medications: T aking chlorproMAZINE HCl 25 MG Tablet 1 tablet Orally Three times a day , Taking Folic Acid 1 MG Tablet 1 tablet [...] Orally Once a day , Taking Tiotropium Alba Monohydrate 2.5 MCG/ACT Aerosol Solution 2 puffs [...] Allergies: N .K.D.A. Objective: * Vitals: W t: 190.2, Temp: 98.5, BP: 112/60, HR: 108, O2 Sat: 96% on RA, Nurse: claude, Ht: 70, BMI:27.29. * Examination: G eneral Examination: General Appearance: C olor is jaundiced. H eart: R SR. L ungs: c lear to auscultation. E xtremities: 1 + pretibial edema of left leg, trace pretibial edema of right leg. Assessment: * Assessment: 1. L eg edema - R60.0 (Primary) 2 . H TN (hypertension) - I10 ?3. H ypophosphatemia - E83.39 4 . L eg pain - M79.606 Plan: * Treatment: Value Reference Range M agnesium 2.0 1.6-2.4 - mg/dL * Tobin Alvarez 10/26/2024 9 :02:32 AM >See phone encounter 2.?HTN (hypertension)?LAB: P-Basic Metabolic Panel (BMP) (Collection Date & Time - 10/21/2024 11:16 AM)* Value Reference Range B UN 6 6-20 - mg/dL * C alcium 8.1 L 8.6-10.4 - mg/dL * C hloride 102 97-108 - mmol/L * C O2 22 22-32 - mmol/L * C reatinine 0.95 0.70-1.30 - mg/dL * G lucose 95 65-99 - mg/dL * P otassium 3.6 3.5-5.3 - mmol/L * S odium 136 135-145 - mmol/L * e GFR by Creatinine 92 >59 - mL/min/1.73m2 * Tobin Alvarez 10/26/2024 9 :02:32 AM >See phone encounter 3.?Hypophosphatemia?LAB: P-Phosphorus (Collection Date & Time - 10/21/2024 11:16 AM)* Value Reference Range P hosphorus 1.9 L 2.5-4.5 - mg/dL * Tobin Alvarez 10/26/2024 9 :02:32 AM >See phone encounter 4.?Leg pain? Start traMADol HCl Tablet, 50 MG, 1 tab(s), Orally, q6h prn, 24.?? * Procedure Codes: 3 074F SYST BP LT 130 MM HG, 3078F DIAST BP < 80 MM HG * Follow Up: [facility] GI clinic next week and here in 2 weeks * Images: Billing Information: * Visit Code: 22837 Office Visit, Est Pt., Level 4. * Procedure Codes: 3074F SYST BP LT 130 MM HG. 3078F DIAST BP < 80 MM HG. * Electronic signature of Tobin Alvarez MD on 06/07/2025 at 07:39 AM EST Sign off status: Pending * Provider: Tobin Alvarez M.D. Date: 0 10/21/2024 Generated for Leydi piper/Abby/Kelsea on: 1 08/07/2024 07:39 AM EST History and Physical Notes * HPI (History of Present Illness) Category Sub-Category Detail Notes Category Not es Cardiology Short of Breath Chest Pain Palpitations HPI Here for follow up on: Pt is her e today for a f/u from [facility] ER. Pt was seen at the ER on 10/18 for swelling in both feet and feeling fatigue. Pt sts both his legs are still swollen. Pt sts the left is worse than the right, and sts the is having lots of pain in both legs. Pt sts he has tried elevating them and sts it has not helped. Pt sts he is unable to sleep at night due to this Examination Category Sub-Category Detail Notes Category Not es General Examination Heart: RSR Lungs: clear to auscultatio n Extremities: 1+ pretibial edema o f left leg, trace pretibial edema of right leg General Appearance: Color is jaundiced
--- OUTSIDE RECORDS SUMMARY | 2025-05-05 05:00 | XMS_ITS ---
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 Name Role Phone Tobin Alvarez Primary Care Provider Allergies No Known Allergies REASON FOR VISIT [facility] D/C Follow Up Medications Medication SIG (Take, Route, Frequency, Duration) Notes Start Date End Date Status chlorproMAZINE HCl 25 MG 1 tablet Orally Three times a day 10/12/2024 Not-Taking Tiotropium [place] Monohydrate 2.5 MCG/ACT 2 puffs Inhalation Once a day Not-Taking Thiamine HCl 100 MG 1 tablet Orally Once a day; Duration: 30 day(s) Not-Taking rOPINIRole HCl 0.5 MG 1 tablet 1 to 3 ho urs before bedtime Orally Once a day; Duration: 30 day(s) Not-Taking Budesonide-Formoterol Fumarate 160-4.5 MCG/ACT as directed Inhalation Not-Taking Folic Acid 1 MG 1 tablet Orally Once a day Not-Taking Furosemide 40 MG 1 tablet Orally Once a day prn for swelling; Duration: 30 days Not-Taking Tamsulosin HCl 0.4 MG 1 capsule Orally O nce a day; Duration: 30 day(s) Not-Taking Aspirin 81 MG 1 TAB(S) ORALLY ONCE A DAY Active dilTIAZem HCl ER 180 MG 1 cap(s) twice daily Active Potassium Chloride ER 20 MEQ 1 tablet with food Orally twice a day; Duration: 90 days Active traMADol HCl 50 MG 1 tab(s) Orally q6h prn 025 Active Testosterone 30 MG/ACT 2 pump(s) transde rmally once a day; Duration: 30 day(s) 10/05/2024 Active Spironolactone 25 MG 1 tablet Orally Onc e a day Active Albuterol Sulfate HFA 108 (90 Base) MCG/ACT 2 puffs four times a day as needed Active Omeprazole 40 MG 1 capsule 1/2 to 1 h our before morning meal Orally twice a day Active Baclofen 5 MG 1 tab Orally 3 times a day Active Vital Signs Blood pressure systolic 120 mm Hg 05/05/20 25 Blood pressure diastolic 72 mm Hg 025 Heart Rate 93 /min 05/05/2025 Height 70 in 05/05/2025 Weight 202 lbs 05/05/2025 BMI 28.98 kg/m2 05/05/2025 Encounters Encounter Location Date Provider Diagnosis [facility] [address] [place], [place] [id number] 05/05/2025 Tobin Alvarez Alcohol abuse F10.10 ; Cirrhosis of liver K74.60 ; HTN (hypertension) I10 ; COPD (chronic obstructive pulmonary disease) J44.9 and Gallstones K80.20 Assessments Encounter Date Diagnosis (ICD Code) Assessment Notes Treatment Notes Treatment Clinical Notes Section Notes 05/05/2025 Alcohol abuse (ICD-10 - F10.10) Keep follow-up with [facility] 05/05/2025 Cirrhosis of liver (ICD-10 - K74.60) Keep follow-up with Dr. Fountain 05/05/2025 HTN (hypertension) (ICD-10 - I10) 05/05/2025 COPD (chronic obstructive pulmonary disease) (ICD-10 - J44.9) 05/05/2025 Gallstones (ICD-10 - K80.20) Plan Of Treatment Medication Medication Name Sig Start Date Stop Date Notes Potassium Phosphate Monobasi c 500 MG 2 tablets with meals and at bedtime Orally Two times a day 10/27/2024 K-Phos 500 MG 2 tablets with meals and at bedtime Orally twice a day 05/03/2025 dilTIAZem HCl ER 180 MG 1 cap(s) twice daily Spironolactone 25 MG 1 tablet Orally Onc e a day Albuterol Sulfate HFA 108 (9 0 Base) MCG/ACT 2 puffs four times a day as needed Omeprazole 40 MG 1 capsule 1/2 to 1 h our before morning meal Orally twice a day Baclofen 5 MG 1 tab Orally 3 times a day Treatment Notes Assessment Notes Alcohol abuse Keep follow-up with [facility] Cirrhosis of liver Keep follow-up with Dr. Fountain Next Appt Details Follow Up: 3 Months, Reason: Progress Notes * ANA LILIA LIUDOB: 5 (60 yo M)Acc No.[id number]:05/05/2025 Progress Notes Patient: ANA LILIA FLYNN Provider: Tobin Alvarez M.D. :1965 A ge:60 Y S ex:Male Date:05/05/2025 Address:[address] [place] [address] Subjective: * Chief Complaints: * 1 . [facility] D/C Follow Up. * HPI: G astroenterology: Vini returns for follow-up from his recent hospital admission for alcoholic cirrhosis, alcohol withdrawal, and hallucinations. He was discharged home on baclofen, spironolactone, acetylcysteine, and prednisone x 7 days. He was also referred to [facility] for addiction treatment as well as referral to Dr. Fountain for follow-up on his cirrhosis. Since going home, he has had no alcohol to drink. He is eating fair but does note some nausea. No vomiting or hematemesis. Denies abdominal pain. * ROS: D ERMATOLOGY: no R felice. [...] one . * Hospitalization/Major Diagno stic Procedure: [facility] - Abdominal Pain (Hepatic Cirrhosis) 06/17/2023. * [...] ,Years: , Determination:. * Medications: T aking Spironolactone 25 MG Tablet 1 tablet Orally Once a day , Taking Baclofen 5 MG Tablet 1 tab Orally 3 times a day , Taking Aspirin 81 MG DELAYED RELEASE TABLET 1 TAB(S) ORALLY ONCE A DAY , Taking Albuterol Sulfate HFA 108 (90 Base) MCG/ACT Aerosol Solution 2 puffs four times a day as needed , Taking Testosterone 30 MG/ACT Solution 2 pump(s) transdermally once a day , Taking traMADol HCl 50 MG Tablet 1 tab(s) Orally q6h prn , Taking Omeprazole 40 MG Capsule Delayed Release 1 capsule 1/2 to 1 hour before morning meal Orally twice a day , Taking Potassium Chloride ER 20 MEQ Tablet Extended Release 1 tablet with food Orally twice a day , Taking dilTIAZem HCl ER 180 MG Capsule Extended Release 24 Hour 1 cap(s) twice daily , Taking Potassium Phosphate Monobasic 500 MG Tablet 2 tablets with meals and at bedtime Orally Two times a day , Taking K-Phos 500 MG Tablet 2 tablets with meals and at bedtime Orally twice a day , Not-Taking Furosemide 40 MG Tablet 1 tablet Orally Once a day prn for swelling , Not-Taking Folic Acid 1 MG Tablet 1 tablet Orally Once a day , Not-Taking Budesonide-Formoterol Fumarate 160-4.5 MCG/ACT Aerosol as directed Inhalation , Not-Taking rOPINIRole HCl 0.5 MG Tablet 1 tablet 1 to 3 hours before bedtime Orally Once a day , Not-Taking Tamsulosin HCl 0.4 MG Capsule 1 capsule Orally Once a day , Not-Taking Thiamine HCl 100 MG Tablet 1 tablet Orally Once a day , Not-Taking Tiotropium [place] Monohydrate 2.5 MCG/ACT Aerosol Solution 2 puffs Inhalation Once a day , Not-Taking chlorproMAZINE HCl 25 MG Tablet 1 tablet Orally Three times a day , Medication List reviewed and reconciled with the patient * Allergies: N .K.D.A. Objective: * Vitals: W t: 202, Temp: 98.4, BP: 120/72, HR: 93, O2 Sat: 94% on RA, Nurse: claude, Ht: 70, BMI:28.98. * Examination: G eneral Examination: General Appearance: A lert and oriented. No distress.?HEENT: S clera are jaundiced, PAUMA. H eart: R SR. L ungs: C oarse breath sounds which are generally diminished. A bdomen: S oft, mildly distended. Nontender. Extremities: T race ankle edema. Assessment: * Assessment: 1. C irrhosis of liver - K74.60 (Primary) 2 . A lcohol abuse - F10.10 ? 3 . H TN (hypertension) - I10 4 . C OPD (chronic obstructive pulmonary disease) - J44.9 5 . G allstones - K80.20 Plan: * Treatment: 2. A lcohol abuse Continue Baclofen Tablet, 5 MG, 1 tab, Orally, 3 times a day. Notes: Keep follow-up with [facility] 3. H TN (hypertension) Continue dilTIAZem HCl ER Capsule Extended Release 24 Hour, 180 MG, 1 cap(s), twice daily. ? 4. C OPD (chronic obstructive pulmonary disease) Refill Albuterol Sulfate HFA Aerosol Solution, 108 (90 Base) MCG/ACT, 2 puffs, four times a day as needed, 1, Refills 5. 5. O thers Stop K-Phos Tablet, 500 MG, 2 tablets with meals and at bedtime, Orally, twice a day; S top Potassium Phosphate Monobasic Tablet, 500 MG, 2 tablets with meals and at bedtime, Orally, Two times a day; C ontinue Omeprazole Capsule Delayed Release, 40 MG, 1 capsule 1/2 to 1 hour before morning meal, Orally, twice a day. * Procedure Codes: 1 036F TOBACCO NON-USER, 3074F SYST BP LT 130 MM HG, 3078F DIAST BP < 80 MM HG * Follow Up: 3 Months * Images: Billing Information: * Visit Code: 14818 Office Visit, Est Pt., Level 4. * Procedure Codes: 1036F TOBACCO NON-USER. 3074F SYST BP LT 130 MM HG. 3078F DIAST BP < 80 MM HG. * Electronic signature of Tobin Alvarez MD on 06/07/2025 at 07:41 AM EST Sign off status: Pending * Provider: Tobin Alvarez M.D. Date: Generated for Leydi piper/Abby/Alexsmitting on: 08/07/2024 07:41 AM EST History and Physical Notes * Examination Category Sub-Category Detail Notes Category Not es General Examination HEENT: Sclera are jaundiced, PAUMA Heart: RSR Lungs: Coarse breath sounds which are generally diminished Abdomen: Soft, mildly distend ed. Nontender Extremities: Trace ankle edema General Appearance: Alert and oriented. No distress
--- OUTSIDE RECORDS SUMMARY | 2025-05-17 05:00 | XMS_ITS ---
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 Referred Provider Specialty Dermatology General Notes Alejandra Abraham 2024 02:23:01 PM > faxed to [facility] Referral Priority Routine Diagnosis 1 Paresthesia (R20.2) [facility] [place] Referring Provider First Name Sarah Referring Provider Last Name Obi Referring Provider [facility] ctphilippe Referred Provider Neurology, . Referred Provider Specialty Neurology General Notes liver failure with b ilateral foot paresthesia, Alejandra Abraham 05/17/2025 02:23:57 PM > faxed to [facility] Neurology, Alejandra Abraham 05/23/2025 10:42:03 AM > spoke with [facility]; tried to call patient 3 times to set up an appt and no answer; they sent a letter advising him to call to set up an appt Referral Priority Routine REASON FOR VISIT ckup, discuss medications, Needs labs, colon cancer screening, Tdap, Shingles, & Flu vaccines Medications Medication SIG (Take, Route, Frequency, Duration) Notes Start Date End Date Status chlorproMAZINE HCl 25 MG 1 tablet Orally Three times a day 10/12/2024 Not-Taking rOPINIRole HCl 0.5 MG 1 tablet 1 to 3 ho urs before bedtime Orally Once a day; Duration: 30 day(s) Not-Taking Tamsulosin HCl 0.4 MG 1 capsule Orally O nce a day; Duration: 30 day(s) Not-Taking Thiamine HCl 100 MG 1 tablet Orally Once a day; Duration: 30 day(s) Not-Taking Tiotropium Andes Monohydrate 2.5 MCG/ACT 2 puffs Inhalation Once a day Not-Taking Furosemide 40 MG 1 tablet Orally Once a day prn for swelling; Duration: 30 days Not-Taking Folic Acid 1 MG 1 tablet Orally Once a day Not-Taking Tab-A-Saranya - 1 tablet Orally Once a day; Duration: 90 days 05/17/2025 Active Budesonide-Formoterol Fumarate 160-4.5 MCG/ACT as directed Inhalation Not-Taking Potassium Chloride ER 20 MEQ 1 tablet with food Orally twice a day; Duration: 90 days Active Baclofen 5 MG 1 tab Orally 3 times a day Active Aspirin 81 MG 1 TAB(S) ORALLY ONCE A DAY Active Testosterone 30 MG/ACT 2 pump(s) transde rmally once a day; Duration: 30 day(s) 10/05/2024 Active Spironolactone 25 MG 1 tablet Orally Onc e a day Not-Taking Albuterol Sulfate HFA 108 (90 Base) MCG/ACT 2 puffs four times a day as needed Active Omeprazole 40 MG 1 capsule 1/2 to 1 h our before morning meal Orally twice a day Active dilTIAZem HCl ER 120 MG 1 cap(s) once a day Active Immunizations Vaccine Route Administration Date Status Comme nts Tetanus Tdap-Adacel (over 7yrs) IM Intramuscular 05/17/2025 Administered Problems Problem Type SNOMED Code ICD Code Onset Dates Problem Status W/U Status Risk Notes Problem Vitamin deficiency (53185094) 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) Active confirmed Problem Paresthesia (73636708) Paresthesia (R20.2) Active confirmed Problem Gastro-esophagea l reflux disease without esophagitis (151105055) Gastro-esophage al reflux disease without esophagitis (K21.9) Active confirmed Vital Signs Blood pressure systolic 120 mm Hg 05/17/20 25 Blood pressure diastolic 62 mm Hg 025 Heart Rate 87 /min 05/17/2025 Height 70 in 05/17/2025 Weight 196.0 lbs 05/17/2025 BMI 28.12 kg/m2 05/17/2025 Encounters Encounter Location Date Provider Diagnosis [facility] [address] [facility] [address] [place] [id number] 05/17/2025 Sarah Crocker Deficiency of other vitamins E56.8 ; Paresthesia R20.2 ; HTN (hypertension) I10 ; Chronic obstructive pulmonary disease, unspecified COPD type J44.9 ; Gastro-esophageal reflux disease without esophagitis K21.9 ; Alcoholic hepatitis without ascites K70.10 ; Cirrhosis of liver K74.60 ; Cough R05 ; Immunization due Z23 and Skin lesions L98.9 Assessments Encounter Date Diagnosis (ICD Code) Assessment Notes Treatment Notes Treatment Clinical Notes Section Notes 05/17/2025 Deficiency of other vitamins (ICD-10 - E56.8) 05/17/2025 Paresthesia (ICD-10 - R20.2) 05/17/2025 HTN (hypertension) (ICD-10 - I10) 05/17/2025 Chronic obstructive pulmonary disease, unspecified COPD type (ICD-10 - J44.9) jammie lorenzana give for cough; he has been using his albuterol up to 6 times daily 05/17/2025 Gastro-esophagea l reflux disease without esophagitis (ICD-10 - K21.9) discussed his diet 05/17/2025 Alcoholic hepatitis without ascites (ICD-10 - K70.10) he has had no alcohol in 6 weeks 05/17/2025 Cirrhosis of liver (ICD-10 - K74.60) has FU with GI in 7-8 weeks with FU labs; also she will plan for the colonoscopy 05/17/2025 Cough (ICD-10 - R05) 05/17/2025 Immunization due (ICD-10 - Z23) 05/17/2025 Skin lesions (ICD-10 - L98.9) 05/17/2025 Other Declines the Fl u and shingle immunizations for now; labs will be repeated with next GI appt; also lab results from 05/13/2025 [facility] ER visit Plan Of Treatment Medication Medication Name Sig Start Date Stop Date Notes Tab-A-Saranya - 1 tablet Orally Once a day; Duration: 90 days 05/17/2025 Baclofen 5 MG 1 tab Orally 3 times a day Albuterol Sulfate HFA 108 (9 0 Base) MCG/ACT 2 puffs four times a day as needed Omeprazole 40 MG 1 capsule 1/2 to 1 h our before morning meal Orally twice a day dilTIAZem HCl ER 120 MG 1 cap(s) once a day Treatment Notes Assessment Notes Chronic obstructive pulmonar y disease, unspecified COPD type breztri samples give for cough; he has b een using his albuterol up to 6 times daily Gastro-esophageal reflux dis ease without esophagitis discussed his diet Alcoholic hepatitis without ascites he h as had no alcohol in 6 weeks Cirrhosis of liver has FU with GI in 7- 8 weeks with FU labs; also she will plan for the colonoscopy Other Declines the Flu and shingle immunizations for now; labs will be repeated with next GI appt; also lab results from 05/13/2025 [facility] ER visit Referrals Referral Date Details 05/17/2025 05/17/2025, . Dermat ology 05/17/2025 05/17/2025, . Neurol ana rosa Next Appt Details Follow Up: 3 Months and prn, Reason: Progress Notes * ANA LILIA LIUDOB: 5 (60 yo M)Acc No.[id number]:05/17/2025 Progress Notes Patient: ANA LILIA FLYNN Provider: CHELITA Villafuerte :1965 A ge:60 Y S ex:Male Date:05/17/2025 Address:[address] [place] [address] Pcp:Tobin Alvarez Subjective: * Chief Complaints: * 1 . Ckup, discuss medications. 2. Needs labs, colon cancer screening, Tdap, Shingles, & Flu vaccines. * HPI: H PI: [facility] ER notes from 05/13/2025 visit Workup was initiated with hematologic labs as well as a CT scan of the abdomen and pelvis. CT scan of the abdomen and pelvis shows no acute findings and no evidence of ascites. The patient's labs do look quite horrific but are not acutely horrific and are not really changed from prior. His labs were personally interpreted by me and demonstrate a leukocytosis of 20.9, no transfusional anemia, his platelet count is actually adequate at 420. His PT INR is improved from prior with an INR of 1.19. He has mild hyponatremia that is stable from prior. He has no evidence of acute kidney injury. His total bilirubin is 20.1, however his bilirubin has been greater than 19 since September of this year. Additionally, the patient's AST, ALT, and alkaline phosphatase are stable from prior as well. We did workup other causes of potential worsening leukocytosis including a chest x-ray as well as urine studies. The patient has no evidence of urinary tract infection and is not experiencing any urinary symptoms. Additionally, on chest x-ray he has no lobar consolidation to indicate an infectious process occurring. This patient's MELD score back in September on his admission was 27, today his MELD score is 26 indicating very mild improvement. While he certainly has chronic conditions and a very poor prognosis, I do not feel that he would benefit from admission as he is not experiencing acute decompensated cirrhosis but instead chronic cirrhosis. Therefore we elected to discharge the patient home and have him follow-up in the outpatient clinic with gastroenterology Wilton Brizuela DO. * ROS: D ERMATOLOGY: lesion P t has a place on his forehead and one on his right scalp that he would like to be assessed. bienvenido viveros. bienvenido krueger. Pankaj ASTROENTEROLOGY: Positive for bienvenido harrell from GI visit 05/09/2025 Plan 1. Chronic alcoholism/jaundice/liver failure/hepatic steatosis/cirrhosis Patient been hospitalized multiple times for acute alcoholic hepatitis and liver failure. He has been transferred to multiple times for the same. He is not a transplant candidate given his chronic alcoholism. However, the patient has been sober for over 30 days but came to the ER on 04/30 admitting to a single alcoholic drink that day and 4 the prior week. He joined [employer] for assistance with chronic alcoholism and is using baclofen to help with alcohol cravings. Patient still obviously jaundiced but much improved from where he was. Patient feels like he has passed alcohol withdrawal symptoms currently. Will do labs now and plan a marshall evaluation of cirrhosis separate from acute alcoholic hepatitis in 8 weeks. Will do Peth testing. Continue baclofen and acetylcysteine to completion. Continue furosemide and spironolactone. Labs, MELD sodium score and ultrasound every 6 months. He just had imaging will do labs now.. n o N ausea. n o V omiting. n o D iarrhea. N EUROLOGY: Positive for F oot paresthesias; pt would like to see neuro for this. U ROLOGY: no D ifficulty urinating. n [...] . * Hospitalization/Major Diagno stic Procedure: U [facility] - Abdominal Pain (Hepatic Cirrhosis) 06/17/2023, [facility] alcoholic withdrawal; cirrhosis ; hypokalemia; hypomag; Jaundice,COPD;GERD; CAD; ASCVD 04/30-05/02. * Family History: F ather: , alzheimer. [...] ,Years: , Determination:. * Medications: T aking Albuterol Sulfate HFA 108 (90 Base) MCG/ACT Aerosol Solution 2 puffs four times a day as needed , Taking Aspirin 81 MG DELAYED RELEASE TABLET 1 TAB(S) ORALLY ONCE A DAY , Taking Testosterone 30 MG/ACT Solution 2 pump(s) transdermally once a day , Taking Omeprazole 40 MG Capsule Delayed Release 1 capsule 1/2 to 1 hour before morning meal Orally twice a day , Taking dilTIAZem HCl ER 120 MG Capsule Extended Release 12 Hour 1 cap(s) once a day , Taking Potassium Chloride ER 20 MEQ Tablet Extended Release 1 tablet with food Orally twice a day , Taking Baclofen 5 MG Tablet 1 tab Orally 3 times a day , Not-Taking Spironolactone 25 MG Tablet 1 tablet Orally Once a day , Not-Taking Furosemide 40 MG Tablet 1 tablet Orally Once a day prn for swelling , Not-Taking Folic Acid 1 MG Tablet 1 tablet Orally Once a day , Not- Taking Budesonide-Formoterol Fumarate 160-4.5 MCG/ACT Aerosol as directed Inhalation , Not-Taking rOPINIRole HCl 0.5 MG Tablet 1 tablet 1 to 3 hours before bedtime Orally Once a day , Not-Taking Tamsulosin HCl 0.4 MG Capsule 1 capsule Orally Once a day , Not-Taking Thiamine HCl 100 MG Tablet 1 tablet Orally Once a day , Not-Taking Tiotropium Andes Monohydrate 2.5 MCG/ACT Aerosol Solution 2 puffs Inhalation Once a day , Not-Taking chlorproMAZINE HCl 25 MG Tablet 1 tablet Orally Three times a day , Discontinued traMADol HCl 50 MG Tablet 1 tab(s) Orally q6h prn , Medication List reviewed and reconciled with the patient * Allergies: N .K.D.A. Objective: * Vitals: W t: 196.0, Temp: 97.9, BP: 120/62, HR: 87, O2 Sat: 98% on RA, Nurse: SALAZAR, Ht: 70, BMI:28.12. * Examination: X ray: CT Scan 1 CT abd/pelvis at [facility] ER FINDINGS: ABDOMEN: The lung bases are clear. The heart is normal in size. There is fatty infiltration of the liver. There are moderate changes of cirrhosis. Varices are noted. There are gallstones in the gallbladder. The spleen is unremarkable. No adrenal mass is present. The pancreas is normal. The kidneys are normal. The aorta is normal in caliber. There is no free fluid or adenopathy. PELVIS: The appendix is not identified. Urinary bladder is distended. There is no significant free fluid or adenopathy. IMPRESSION: Cirrhosis, fatty liver, and probable portal hypertension. Cholelithiasis.. L ABS: H ER labs 05/13/25 14:30: WBC 20.9 H*, RBC 3.85 L, Hgb 13.3 L, Hct 38.8 L, MCV 100.8 H, MCH 34.5 H, MCHC 34.3, RDW 16.4, Plt Count 420, MPV 11.3 H, Neut % (Auto) 77.3, Lymph % (Auto) 9.0 L, Dorado % (Auto) 9.9 H, Eos % (Auto) 0.9, Baso % (Auto) 0.2, Neut # (Auto) 16.1 H, Lymph # (Auto) 1.9, Dorado # (Auto) 2.1 H, Eos # (Auto) 0.2, Baso # (Auto) 0.1, Total Counted 100, Neutrophils % (Manual) 72, Lymphocytes % (Manual) 9 L, Monocytes % (Manual) 14 H, Eosinophils % (Manual) 1, Metamyelocytes % 1.0, Myelocytes % 3 H, Platelet Estimate Slight increase, Polychromasia 1+, Poikilocytosis 1+, Anisocytosis 1+, Macrocytosis 1+, Target Cells 1+, Tear Drop Cells 2+, PT 13.0 H, INR 1.19 H, APTT 28.0, Sodium 131 L, Potassium 4.9, Chloride 99, Carbon Dioxide 18 L, Anion Gap 18.9 H, BUN 18, Creatinine 1.30 H, Estimated Creat Clear 74, Estimated GFR 56 L, Est GFR ( Amer) 68, Glucose 97, Lactate 1.5, Calcium 9.7, Magnesium 2.2, Total Bilirubin 20.1 H*, GGT 624 H, AST 271 H, ALT 239 H, Alkaline Phosphatase 438 H, Total Protein 7.9, Albumin 3.9, Globulin 4.0 H, Albumin/Globulin Ratio 1.0 L, Lipase 262, Plasma/Serum Alcohol < 10 05/13/25 18:12: Urine Color Yellow, Urine Appearance Clear, Urine pH 5.0, Ur Specific Lamar <= 1.005, Urine Protein Negative, Urine Glucose (UA) Trace, Urine Ketones Negative, Urine Blood Negative, Urine Nitrate Negative, Urine Bilirubin 3+ A, Urine Urobilinogen 1.0, Ur Leukocyte Esterase Negative. G eneral Examination: General Appearance: N AD, alert, pleasant; jaundice is evident. H EENT: P ERRLA; yellow sclera. O ral cavity: m ucosa moist and WNL, no erythema. N cristal: s upple, no lymphadenopathy, no carotid bruits, thyroid normal. H eart: R RR. L ungs: b ilateral rhonchi; + cough. A bdomen: b owel sounds present, soft; distended. N eurologic Exam: a lert and oriented. S kin: Sandy aunjean; lesions mid-forehead and scalp on the right posterior. E xtremities: m inimal bilateral ankle edema; bilateral hand tremors. Assessment: * Assessment: 1. D eficiency of other vitamins - E56.8 (Primary) 2 . P aresthesia - R20.2? 3. H TN (hypertension) - I10 4 . C hronic obstructive pulmonary disease, unspecified COPD type - J44.9 5 . G lenny-esophageal reflux disease without esophagitis - K21.9 6 . A lcoholic hepatitis without ascites - K70.10? 7. C irrhosis of liver - K74.60 8 . C ough - R05 ? 9 . I mmunization due - Z23 1 0. S kin lesions - L98.9 ?Specify :forehead and right scalp Plan: * Treatment: 2. P aresthesia Continue Baclofen Tablet, 5 MG, 1 tab, Orally, 3 times a day. ? Referral To:. Neurology Neurology Reason: 3. H TN (hypertension) Continue dilTIAZem HCl ER Capsule Extended Release 12 Hour, 120 MG, 1 cap(s), once a day. ? 4. C hronic obstructive pulmonary disease, unspecified COPD type Continue Albuterol Sulfate HFA Aerosol Solution, 108 (90 Base) MCG/ACT, 2 puffs, four times a day as needed. Notes: jammie lorenzana give for cough; he has been using his albuterol up to 6 times daily ? 5. G lenny-esophageal reflux disease without esophagitis Continue Omeprazole Capsule Delayed Release, 40 MG, 1 capsule 1/2 to 1 hour before morning meal, Orally, twice a day. Notes: discussed his diet 6. A lcoholic hepatitis without ascites Notes: he has had no alcohol in 6 weeks 7. C irrhosis of liver Notes: has FU with GI in 7-8 weeks with FU labs; also she will plan for the colonoscopy 8. S kin lesions Referral To:. Dermatology Dermatology Reason: 9. O thers Notes: Declines the Flu and shingle immunizations for now; labs will be repeated with next GI appt; also lab results from 05/13/2025 [facility] ER visit * Immunizations: Tetanus Tdap-Adacel (over 7yrs) : 0.5 mL (Route: Intramuscular) given by Paige Singh on Left Deltoid (Immunization due) * Procedure Codes: 1 036F TOBACCO NON-USER, 3074F SYST BP LT 130 MM HG, 3078F DIAST BP < 80 MM HG * Follow Up: 3 Months and prn * Images: Billing Information: * Visit Code: 67130 Office Visit, Est Pt., Level 4. * Procedure Codes: 1036F TOBACCO NON-USER. 3074F SYST BP LT 130 MM HG. 3078F DIAST BP < 80 MM HG. * Electronic signature of Tara Crocker APRN on 06/07/2025 at 07:39 AM EST Sign off status: Pending * Provider: CHELITA Villafuerte Date: Generated for Leydi piper/Abby/eTransmitting on: 08/07/2024 07:39 AM EST History and Physical Notes * Examination Category Sub-Category Detail Notes Category Not es General Examination HEENT: PERRLA; yellow sclera Heart: RRR Lungs: bilateral rhonchi; + cough Abdomen: bowel sounds present , soft; distended Extremities: minimal bilateral an kle edema; bilateral hand tremors General Appearance: NAD, alert, pleasant ; jaundice is evident Skin: Jaundice; lesions mi d-forehead and scalp on the right posterior Neurologic Exam: alert and oriented Neck: supple, no lymphaden opathy, no carotid bruits, thyroid normal Oral cavity: mucosa moist and WNL , no erythema LABS [facility] ER labs 05/13/25 14:30: WBC 20.9 H*, RBC 3.85 L, Hgb 13.3 L, Hct 38.8 L, MCV 100.8 H, MCH 34.5 H, MCHC 34.3, RDW 16.4, Plt Count 420, MPV 11.3 H, Neut % (Auto) 77.3, Lymph % (Auto) 9.0 L, Dorado % (Auto) 9.9 H, Eos % (Auto) 0.9, Baso % (Auto) 0.2, Neut # (Auto) 16.1 H, Lymph # (Auto) 1.9, Dorado # (Auto) 2.1 H, Eos # (Auto) 0.2, Baso # (Auto) 0.1, Total Counted 100, Neutrophils % (Manual) 72, Lymphocytes % (Manual) 9 L, Monocytes % (Manual) 14 H, Eosinophils % (Manual) 1, Metamyelocytes % 1.0, Myelocytes % 3 H, Platelet Estimate Slight increase, Polychromasia 1+, Poikilocytosis 1+, Anisocytosis 1+, Macrocytosis 1+, Target Cells 1+, Tear Drop Cells 2+, PT 13.0 H, INR 1.19 H, APTT 28.0, Sodium 131 L, Potassium 4.9, Chloride 99, Carbon Dioxide 18 L, Anion Gap 18.9 H, BUN 18, Creatinine 1.30 H, Estimated Creat Clear 74, Estimated GFR 56 L, Est GFR ( Amer) 68, Glucose 97, Lactate 1.5, Calcium 9.7, Magnesium 2.2, Total Bilirubin 20.1 H*, GGT 624 H, AST 271 H, ALT 239 H, Alkaline Phosphatase 438 H, Total Protein 7.9, Albumin 3.9, Globulin 4.0 H, Albumin/Globulin Ratio 1.0 L, Lipase 262, Plasma/Serum Alcohol < 10 05/13/25 18:12: Urine Color Yellow, Urine Appearance Clear, Urine pH 5.0, Ur Specific Lamar <= 1.005, Urine Protein Negative, Urine Glucose (UA) Trace, Urine Ketones Negative, Urine Blood Negative, Urine Nitrate Negative, Urine Bilirubin 3+ A, Urine Urobilinogen 1.0, Ur Leukocyte Esterase Negative X ray CT Scan 05/13/2025 CT ab d/pelvis at [facility] ER FINDINGS: ABDOMEN: The lung bases are clear. The heart is normal in size. There is fatty infiltration of the liver. There are moderate changes of cirrhosis. Varices are noted. There are gallstones in the gallbladder. The spleen is unremarkable. No adrenal mass is present. The pancreas is normal. The kidneys are normal. The aorta is normal in caliber. There is no free fluid or adenopathy. PELVIS: The appendix is not identified. Urinary bladder is distended. There is no significant free fluid or adenopathy. IMPRESSION: Cirrhosis, fatty liver, and probable portal hypertension. Cholelithiasis. Consultation Request Notes Referral Date Referring Provider Referred Provider Not es 05/17/2025 Sarah Crocker Dermatology, . 05/17/2025 Sarah Crocker Neurology, .
--- OUTSIDE RECORDS SUMMARY | 2025-05-31 09:45 | XMS_ITS ---
[facility] Address [address] [facility] [address] [id number] Care Team Providers Care Manager Health Name Role Phone Tobin Alvarez Primary Care Provider Allergies No Known Allergies REASON FOR VISIT swelling in feet, skin issues Medications Medication SIG (Take, Route, Frequency, Duration) Notes Start Date End Date Status Aspirin 81 MG 1 TAB(S) ORALLY ONCE A DAY Active Testosterone 30 MG/ACT 2 pump(s) transde rmally once a day; Duration: 30 day(s) 10/05/2024 Active hydrOXYzine HCl 25 MG 1 tablet Orally q6 h prn itching; Duration: 30 days 05/31/2025 Activ e Furosemide 40 MG 1 tablet Orally Once a day prn for swelling Active dilTIAZem HCl ER 120 MG 1 cap(s) once a day Active Baclofen 5 MG 1 tab Orally 3 times a day Active Albuterol Sulfate HFA 108 (90 Base) MCG/ACT 2 puffs four times a day as needed Active Omeprazole 40 MG 1 capsule 1/2 to 1 h our before morning meal Orally twice a day Active Potassium Chloride ER 20 MEQ 1 tablet with food Orally twice a day; Duration: 90 days Active Tab-A-Saranya - 1 tablet Orally Once a day; Duration: 90 days 05/17/2025 Active Vital Signs Blood pressure systolic 126 mm Hg 05/31/20 25 Blood pressure diastolic 80 mm Hg 025 Heart Rate 68 /min 05/31/2025 Height 70 in 05/31/2025 Weight 204 lbs 05/31/2025 BMI 29.27 kg/m2 05/31/2025 Encounters Encounter Location Date Provider Diagnosis [facility] [address] [facility] [address] [place] [id number] 05/31/2025 Tobin Alvarez Pruritic dermatitis L29.9 ; Leg edema R60.0 and Cirrhosis of liver K74.60 Assessments Encounter Date Diagnosis (ICD Code) Assessment Notes Treatment Notes Treatment Clinical Notes Section Notes 05/31/2025 Pruritic dermatitis (ICD-10 - L29.9) - - Likely from hyperbilirubinemia 05/31/2025 Leg edema (ICD-10 - R60.0) 05/31/2025 Cirrhosis of liver (ICD-10 - K74.60) Plan Of Treatment Medication Medication Name Sig Start Date Stop Date Notes hydrOXYzine HCl 25 MG 1 tablet Orally q6 h prn itching; Duration: 30 days 05/31/2025 Furosemide 40 MG 1 tablet Orally Once a day prn for swelling Next Appt Details Follow Up: prn, Reason: Progress Notes * ANA LILIA LIUDOB: 5 (60 yo M)Acc No.[id number]:05/31/2025 Progress Notes Patient: ANA LILIA FLYNN Provider: Tobin Alvarez M.D. :1965 A ge:60 Y S ex:Male Date:05/31/2025 Address:[address] [place] [address] Subjective: * Chief Complaints: * 1 . Swelling in feet, skin issues. * HPI: D ermatology: 60 year old male presents with c/o itching P t states he has places on his arms. Pt states he is itching all over his body and not sure what is cause it. Vini presents with complaints of itching that has gotten worse over the past 2 to 3 weeks. Itching is mostly on the arms and trunk. He is known to have cirrhosis and recently has been abstinent from alcohol. C ardiology: He began noticing increased swelling in his feet and ankles last week. He had quit taking spironolactone stating that it caused him to be up during the night urinating. He did start back on Lasix 40 mg daily about 3 days ago and has seen improvement of the swelling. * ROS: D ERMATOLOGY: no R felice. [...] * Hospitalization/Major Diagno stic Procedure: [facility] - Abdominal Pain (Hepatic Cirrhosis) 06/17/2023, [facility] alcoholic withdrawal; cirrhosis ; hypokalemia; hypomag; Jaundice,COPD;GERD; [...] ,Years: , Determination:. * Medications: T aking Aspirin 81 MG DELAYED RELEASE TABLET 1 TAB(S) ORALLY ONCE A DAY , Taking Testosterone 30 MG/ACT Solution 2 pump(s) transdermally once a day , Taking Potassium Chloride ER 20 MEQ Tablet Extended Release 1 tablet with food Orally twice a day , Taking Tab-A-Saranya - Tablet 1 tablet Orally Once a day , Taking Albuterol Sulfate HFA 108 (90 Base) MCG/ACT Aerosol Solution 2 puffs four times a day as needed , Taking Omeprazole 40 MG Capsule Delayed Release 1 capsule 1/2 to 1 hour before morning meal Orally twice a day , Taking dilTIAZem HCl ER 120 MG Capsule Extended Release 12 Hour 1 cap(s) once a day , Taking Baclofen 5 MG Tablet 1 tab Orally 3 times a day , Discontinued Spironolactone 25 MG Tablet 1 tablet Orally Once a day , Discontinued Furosemide 40 MG Tablet 1 tablet Orally Once a day prn for swelling , Discontinued Folic Acid 1 MG Tablet 1 tablet Orally Once a day , Discontinued Budesonide-Formoterol Fumarate 160-4.5 MCG/ACT Aerosol as directed Inhalation , Discontinued rOPINIRole HCl 0.5 MG Tablet 1 tablet 1 to 3 hours before bedtime Orally Once a day , Discontinued Tamsulosin HCl 0.4 MG Capsule 1 capsule Orally Once a day , Discontinued Thiamine HCl 100 MG Tablet 1 tablet Orally Once a day , Discontinued Tiotropium Madison Monohydrate 2.5 MCG/ACT Aerosol Solution 2 puffs Inhalation Once a day , Discontinued chlorproMAZINE HCl 25 MG Tablet 1 tablet Orally Three times a day , Medication List reviewed and reconciled with the patient * Allergies: N .K.D.A. Objective: * Vitals: W t: 204, Temp: 98.4, BP: 126/80, HR: 68, Nurse: ruben, Ht: 70, BMI:29.27. * Examination: G eneral Examination: General Appearance: N AD. Jaundice subjectively seems improved. H eart: R SR. L ungs: c lear to auscultation. S kin: M ultiple scabs on both arms from excoriations. E xtremities: 1 + ankle edema bilaterally. ? Assessment: * Assessment: 1. P ruritic dermatitis - L29.9 (Primary) N otes :- - Likely from hyperbilirubinemia 2 . L eg edema - R60.0 3 . C irrhosis of liver - K74.60? Plan: * Treatment: 2. L eg edema Resume Furosemide Tablet, 40 MG, 1 tablet, Orally, Once a day prn for swelling. * Follow Up: p rn * Images: Billing Information: * Visit Code: 61613 Office Visit, Est Pt., Level 3. * Procedure Codes: * Electronic signature of Tobin Alvarez MD on 06/07/2025 at 07:39 AM EST Sign off status: Pending * Provider: Tobin Alvarez M.D. Date: Generated for Leydi piper/Faxing/eTransmitting on: 1 08/07/2024 07:39 AM EST History and Physical Notes * HPI (History of Present Illness) Category Sub-Category Detail Notes Category Not es Dermatology itching Pt states he has places on his arms. Pt states he is itching all over his body and not sure what is cause it Vini presents with complaints of itching that has gotten worse over the past 2 to 3 weeks. Itching is mostly on the arms and trunk. He is known to have cirrhosis and recently has been abstinent from alcohol. Cardiology He began notici ng increased swelling in his feet and ankles last week. He had quit taking spironolactone stating that it caused him to be up during the night urinating. He did start back on Lasix 40 mg daily about 3 days ago and has seen improvement of the swelling. Examination Category Sub-Category Detail Notes Category Not es General Examination Heart: RSR Lungs: clear to auscultatio n Extremities: 1+ ankle edema bilat erally General Appearance: NAD. Jaundice subjec tively seems improved Skin: Multiple scabs on mayuri th arms from excoriations
--- OUTSIDE RECORDS SUMMARY | 2025-06-07 07:41 | XMS_ITS | Clinical Summary ---
Author Organization [facility] Address [address] [place] [id number] Care Team Providers Care Orthopedics Teacher Name Role Phone Unknown, Attending Provider Primary Care Provide r Unavailable Source Comments This information has been disclosed to you from confidential records protectedfrom disclosure by state law. You shall make no further disclosure of thisinformation without the specific, written, and informed release of theindividual to whom it pertains, or as otherwise permitted by law. A generalauthorization for the release of medical or other information is not sufficientfor the purposes of therelease of HIV test results or diagnoses. [id number] Allergies No known active allergies Medications albuterol 90 mcg/actuation Inhl inhaler Inhale 2 puffs into the lungs every 6 hours as needed. 10/23/2022 Active clopidogreL (PLAVIX) 75 mg tablet Take 1 tablet (75 mg total) by mouth daily. 06/11/2023 Active diltiazem (CARDIZEM CD) 180 MG 24 hr capsule Take 1 capsule (180 mg total) by mouth daily. 02/18/2023 Active omeprazole (PRILOSEC) 40 MG capsule Take 1 capsule (40 mg total) by mouth 2 times a day. 04/25/2023 Active rosuvastatin (CRESTOR) 20 MG tablet Take 1 tablet (20 mg total) by mouth daily. 02/03/2023 Active testosterone 30 mg/actuation (1.5 mL) SlPm 06/18/2023 Activ e polyethylene glycol (GLYCOLAX) 17 gram/dose powderIndicatio ns:constipation Mix one capful (17 g) with 8 ounces of liquid of choice and drink by mouth 2 times a day as needed (Constipatio n). 238 g 3 06/19/2023 Active Active Problems Problem Noted Date Diagnosed Date Decompensated hepatic cirrhosis 06/17/2023 Other emphysema 06/17/2023 HTN (hypertension) 06/17/2023 Hyperlipidemia 06/17/2023 GERD (gastroesophageal reflux disease) Diastolic dysfunction 06/17/2023 Social History Tobacco Use Types Packs/Day Years Used Date Smoking Tobacco: Former Cigarettes 2 25 Smokeless Tobacco: Never Alcohol Use Standard Drinks/Week Comments Yes 0 (1 standard drink = 0.6 oz pur e alcohol) 0.5-1 pint of Trovix daily Utilities Answer Date Recorded In the past 12 months has th e [employer], gas, oil, or water company threatened to shut off services in your home? No 06/17/2023 AUDIT-C Answer Date Recorded Q1: How often do you have a drink containing alcohol? 4 or more times a week 06/17/2023 Q2: How many drinks containi ng alcohol do you have on a typical day when you are drinking? 5 or 6 Q3: How often do you have si x or more drinks on one occasion? Daily or almost daily 06/17/2023 Hunger Vital Sign Answer Date Recorded Within the past 12 months, y ou worried that your food would run out before you got the money to buy more. Never true 06/17/20 23 Within the past 12 months, t he food you bought just didn't last and you didn't have money to get more. Never true 06/17/2023 PRAPARE - Transportation Answer Date Re corded In the past 12 months, has l ack of transportation kept you from medical appointments or from getting medications? No 06/04 In the past 12 months, has l ack of transportation kept you from meetings, work, or from getting things needed for daily living? No 06/17/2023 Housing Stability Vital Sign Answer Richard e Recorded In the last 12 months, was t here a time when you were not able to pay the mortgage or rent on time? No 06/17/2023 In the last 12 months, how many places have you lived? 1 06/17/2023 In the last 12 months, was t here a time when you did not have a steady place to sleep or slept in a correction (including now)? No 06/17/2023 Sex and Gender Information Value Date Recorded Sex Assigned at Not on file Legal Sex Male 10:24 PM EST Gender Identity Not on file Sexual Orientation Not on file Last Filed Vital Signs Vital Sign Reading Time Taken Comments Blood Pressure 137/85 06/19/2023 11:51 AM EST Pulse 95 06/19/2023 3:00 PM EST Temperature 36.7 C (98 F) 06/19/2023 11:51 AM EST Respiratory Rate 20 06/19/2023 11:51 AM EST Oxygen Saturation 95% 06/19/2023 3:00 PM EST Inhaled Oxygen Concentration 95% 06/19/2023 3 :00 PM EST Weight 97.3 kg (214 lb 8 oz) 06/19/2023 4:30 AM EST Height 182.9 cm (6') 06/17/2023 2:25 AM EST Body Mass Index 29.09 06/17/2023 2:25 AM EST Plan of Treatment Health Maintenance Due Date Last Done Comments ASCVD Assessment 1965 Abnormal Colonoscopy Follow Up 1965 Pulmonary Function Testing 1965 Depression Screening 1983 HIV Screening 1983 Immunization: DTaP/Tdap/Td ( 1 - Tdap) 02/24/1984 Immunization: Hepatitis A (1 of 2 - Risk 2-dose series) 02/24/1984 Immunization: Pneumococcal ( 1 of 2 - PCV) 02/24/1984 Cologuard (FIT-DNA) 2010 Colonoscopy 2010 Colorectal Cancer Screening (MyChart) 2010 Stool Testing (gFOBT) 2010 Immunization: Zoster (1 of 2) 2015 Lung Cancer Screening 2015 Alcohol Misuse Screening 06/16/2024 06/16/2023 Renal Function/GFR 06/19/2024 06/19/2023, 1 08/18/2022, 06/18/2023, Additional history exists Immunization: Hepatitis B (1 of 3 - Risk 3-dose series) 2025 Immunization: RSV (Adult) (1 - Risk 60-74 years 1-dose series) 2025 Immunization: COVID-19 ( - season) 2025 Immunization: Influenza (MyC borja) (#1) 2025 Hepatitis C Screening (MyChart) Completed 3 Procedures Procedure Name Priority Date/Time Associated Diagnosis Comments RENAL FUNCTION PANEL W/EGFR Routine 06/19/2023 1:36 AM EST HEPATITIS C ANTIBODY Routine 06/17/2023 5:45 AM EST from Last 3 Months or Most Recently Relevant to Health Maintenance Results * (ABNORMAL) Renal Function Panel w/EGFR (06/19/2023 1:36 AM EST) Sodium 130(L) 133 - 146 mmol/L 06/19/2023 2:45 AM EST [facility] Potassium 4.0 3.5 - 5.3 mmol/L 06/19/2023 2:45 AM EST [facility] Comment:Hemolysis Present: R esults may be influenced artificially. Recommend recollection as clinically indicated. Chloride 100 98 - 110 mmol/L 06/19/2023 2:45 AM EST [facility] CO2 18(L) 21 - 33 mmol/L 06/19/2023 2:45 AM EST [facility] Anion Gap 12 3 - 16 mmol/L 06/19/2023 2:45 AM EST [facility] BUN 19 7 - 25 mg/dL 06/19/2023 2:45 AM EST [facility] Creatinine 1.96(H) 0.60 - 1.30 mg/dL 06/19/2023 2:45 AM EST [facility] Glucose 125(H) 70 - 100 mg/dL 06/19/2023 2:45 AM EST [facility] Calcium 8.8 8.6 - 10.3 mg/dL 06/19/2023 2:45 AM EST [facility] Phosphorus 1.5(L) 2.1 - 4.7 mg/dL 06/19/2023 2:45 AM EST [facility] Albumin 4.6 3.5 - 5.7 g/dL 06/19/2023 2:45 AM EST [facility] Osmolality, Calculated 274(L) 278 - 305 mOsm/kg 06/19/2023 2:45 AM EST [facility] EGFR 39 06/19/2023 2:45 AM EST [facility] Comment:As of 2021, the estimated GFR is calculated using the 2020 Chronic Kidney Disease Epidemiology Collaboration (CKD-EPI) equation. In line with the NKF-ASN Task Force Recommendations, this equation does not include a coefficient for race. A single eGFR value is calculated for each patient. The reference interval is >60 mL/min/1.73m2. eGFR values greater than 90 will be reported as >90mL/min/1.73m2. Reference: Koffi C, Alexandro M, Griselda DC, Yoshi ND, Anthony CA, Debi LA, et al. A Unifying Approach for GFR Estimation: Recommendations of the NKF-ASN Task Force on Reassessing the inclusion of Race in Diagnosing Kidney Disease. Am J Kidney Dis. 2020. Plasma 06/19/2023 1:36 AM EST 06/19/2023 2:12 AM EST Jeevan Freedman MD LAB BLOOD ORDERABLES Final Resul t Performing Organization Address [facility] Co de Phone Number [facility] [address] [facility]. [address] * Hepatitis C Antibody (06/17/2023 5:45 AM EST) HCV Ab Nonreactive Nonreactive 06/17/2023 8:39 AM EST [facility] Comment:Health Department no tified in accordance with reportable infectious disease guidelines. Serum 06/17/2023 5:45 AM EST 06/17/2023 6:17 AM EST Narrative [facility] - 06/17/2023 8:39 AM EST Antibodies to HCV not detected; does not exclude the possibility of exposure to HCV. Maco Jeong DO LAB BLOOD ORDERABLES Final R esult Performing Organization Address [facility] Co de Phone Number [facility] [address] [facility]. [address] from Last 3 Months or Most Recently Relevant to Health Maintenance Insurance [facility] Address: [place] [address] Advance Directives For more information, please contact: [phone] * Full Code (Latest Code Status on File) Date Activated Date Inactivated Comments 06/17/2023 3:08 AM 06/19/2023 9:26 PM Care Teams Orthopedics Teacher Relationship Specialty Start Date End Date Unknown, Attending Provider PCP - General 06/15/23
--- OUTSIDE RECORDS SUMMARY | 2025-06-07 07:41 | XMS_ITS | Patient Health Record ---
[facility] Address [address] [id number] Care Team Providers Care Retort Forker Name Role Phone Tobin Alvarez Primary Care Provider [phone] Salvador Herrera Unavailable [phone] Sarah Crocker Unavailable [phone] Allergies No Known Allergies Results Component Value [...] Interpretation:Abnormal Performing Lab: Notes/Report: Test performed by [facility] [address] [place] [address] , [address], [place] [address] Momo Renteria MD, [facility] CLIA: [id number] Sodium 131 135-145 mmol/L Potassium 3.4 3.5-5.3 [...] Interpretation: Performing Lab: Notes/Report: Test performed by [facility] [address] [place], [place] [address] , [facility] [address] Momo Renteria MD, [facility] CLIA: [id number] Sodium 136 135-145 mmol/L Potassium 3.6 3.5-5.3 [...] Interpretation: Performing Lab: Notes/Report: Test performed by [facility] [address] [place], [place] [address] [place] [address] Momo Renteria MD, [facility] CLIA: [id number] Magnesium 2.0 1.6-2.4 mg/dL P-Phosphorus Reviewed date:10/26/2024 09:02:42 AM Interpretation: Performing Lab: Notes/Report: Test performed by [facility] [address] [place], [place] [address] [place] [address] Momo Renteria MD, [facility] CLIA: [id number] Phosphorus 1.9 2.5-4.5 mg/dL P-Vitamin D 1,25-Dihydroxy a nd 25-Hydroxy Reviewed date:09/13/2024 02:15:53 PM Interpretation: Performing Lab: Notes/Report: Test performed by [facility] [address] [place] [address] , [address], [place] [address] Momo Renteria MD, [facility] CLIA: [id number] Vitamin D 25-Hydroxy 20.7 30.0-100.0 ng/mL Interpretation of Vitamin D 25 OH: < 20 ng/mL - Deficiency 20 - 29 ng/mL - Insufficiency 30 - 100 ng/mL - Sufficiency > 100 ng/mL - Super-therapeutic- toxicity may occur above this level. Clinical correlation required. Vitamin D, 1, 25 Dihydroxy 27.5 19.9-79.3 pg/m L P-TSH Reviewed date:09/13/2024 02:15:53 PM Interpretation: Performing Lab: Notes/Report: Test performed by [email or web address] [address] , [place] [address] Momo Renteria MD, Scouts CLIA: [id number] TSH 2.30 0.43-5.25 mU/L P-PSA Reviewed date:09/13/2024 02:15:53 PM Interpretation: Performing Lab: Notes/Report: Test performed by [email or web address] [address] , [place] [address] Momo Renteria MD, Scouts CLIA: [id number] PSA 1.40 <4.00 ng/mL Please note this is an ultrasensitive PSA assay with a lower limit of detection of 0.014 ng/mL. This test is performed by the Esa ECLIA methodology. Values obtained with different assay methods or kits cannot be directly compared. P-Magnesium Reviewed date:09/13/2024 02:15:53 PM Interpretation: Performing Lab: Notes/Report: Test performed by [facility] [address] [place], [place] [address] , [place] [address] Momo Renteria MD, [facility] CLIA: [id number] Magnesium 1.5 1.6-2.4 mg/dL P-Comprehensive Metabolic Pa emily (CMP) Reviewed date:09/13/2024 02:15:53 PM Interpretation: Performing Lab: Notes/Report: Test performed by [facility] [address] [place] [address] , [address], [place] [address] Momo Renteria MD, [facility]outs CLIA: [id number] Sodium 136 135-145 mmol/L Potassium 3.3 3.5-5.3 [...] Interpretation: Performing Lab: Notes/Report: Test performed by [facility] [address] [place] [address] , [address], [place] [address] Momo Renteria MD, [facility] CLIA: [id number] Vitamin B12 615 978-6874 pg/mL Glycohemoglobin A1c (in hous e) Reviewed date:09/13/2024 02:15:53 PM Interpretation:4.6% Performing Lab: Notes/Report: 4.6% glycohemoglobin 4.6% 5 - 6.5 % CBC Venipuncture (in house) Reviewed date:09/13/2024 02:15:53 [...] - 38 platlet 234 100 - 400 Medications Medication SIG (Take, Route, Frequency, Duration) Notes Start Date End Date Status dilTIAZem HCl ER 120 MG 1 cap(s) once a day Active Baclofen 5 MG 1 tab Orally 3 times a day Active Aspirin 81 MG 1 TAB(S) ORALLY ONCE A DAY Active Testosterone 30 MG/ACT 2 pump(s) transde rmally once a day; Duration: 30 day(s) 10/05/2024 Active Albuterol Sulfate HFA 108 (90 Base) MCG/ACT 2 puffs four times a day as needed Active Omeprazole 40 MG 1 capsule 1/2 to 1 h our before morning meal Orally twice a day Active hydrOXYzine HCl 25 MG 1 tablet Orally q6 h prn itching; Duration: 30 days 05/31/2025 Activ e Potassium Chloride ER 20 MEQ 1 tablet with food Orally twice a day; Duration: 90 days Active Furosemide 40 MG 1 tablet Orally Once a day prn for swelling Active Tab-A-Saranya - 1 tablet Orally Once a day; Duration: 90 days 05/17/2025 Active Immunizations Vaccine Route Administration Date Status Comme nts COVID 19 Kirk Unknown 12/16/2020 Administered Tetanus Tdap-Adacel (over 7yrs) IM Intramuscular 05/17/2025 Administered tuberculin (ppd) ID Intradermal 08/11/2007 Administered DT, 7 YEARS OR OLDER Unknown 10/08/1996 Administered Problems Problem Type SNOMED Code ICD Code Onset Dates Problem Status W/U Status Risk Notes Problem Gastro-esophageal reflux disease without esophagitis (435885206) Gastro-esophageal reflux disease without esophagitis (K21.9) Active confirmed Problem Coronary arteriosclerosis (26797462) ASCVD (arteriosclerotic cardiovascular disease) (I25.10) Active confirmed Problem Hypertension (05076638) HTN (hypertension) (I10) Active confirmed Problem COPD - Chronic obstructive pulmonary disease (96947177) COPD (chronic obstructive pulmonary disease) (J44.9) Active confirmed Problem Paresthesia (56269453) Paresthesia (R20.2) Active confirmed Problem Hyperuricemia (55453103) Hyperuricemia (E79.0) Active confirmed Problem Acute exacerbation of chronic obstructive airways disease (260888490) COPD exacerbation (J44.1) Active confirmed Problem Peripheral neuropathy (507097486) Peripheral neuropathy (G62.9) Active confirmed Problem Rheumatoid factor positive (561386969) Rheumatoid factor positive (R76.8) Active confirmed Problem Alcohol abuse (19568093) Alcohol abuse (F10.10) Active confirmed Problem Vitamin deficiency (71758017) 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) Active confirmed Problem Acute alcoholic liver disease (0375017) Alcoholic hepatitis without ascites (K70.10) Active confirmed Problem Degeneration of cervical intervertebral disc (88525396) Degenerative disc disease, cervical (M50.30) Active confirmed Problem Gastroesophageal reflux disease with esophagitis (544606896) Gastroesophageal reflux disease with esophagitis (K21.0) Active confirmed Problem Cirrhosis of liver (42446937) Cirrhosis of liver (K74.60) Active confirmed Problem Hypophosphatemia (1572734) Hypophosphatemia (E83.39) Active confirmed Problem Dyslipidemia (846585592) Dyslipidemia (E78.5) Active confirmed Problem Hypotestosteronism (0559248364268) Hypotestosteronism (E29.1) Active confirmed Problem Skin sensation disturbance (40852607) Paresthesia of foot, bilateral (R20.2) Active confirmed Problem Steatosis of liver (447136495) Hepatic steatosis (K76.0) Active confirmed Problem Gallstones (047574208) Gallstones (K80.20) Active confirmed Problem Seasonal allergic rhinitis (055522999) Seasonal allergic rhinitis, unspecified trigger (J30.2) Active confirmed Vital Signs Heart Rate 68 /min 05/31/2025 Blood pressure diastolic 80 mm Hg 05/31/2025 Height 70 in 05/31/2025 Blood pressure systolic 126 mm Hg 05/31/2025 Weight 204 lbs 05/31/2025 BMI 29.27 kg/m2 05/31/2025 Encounters Encounter Location Date Provider Diagnosis [facility] [address] [place] [id number] 09/09/2024 R Inderjit Antonio Fatigue R53.83 ; Jaundice R17 ; Cirrhosis of liver K74.60 ; COPD (chronic obstructive pulmonary disease) J44.9 ; Alcohol abuse F10.10 ; Alcoholic hepatitis without ascites K70.10 ; Peripheral neuropathy G62.9 ; Screening for prostate cancer Z12.5 ; HTN (hypertension) I10 ; Tobacco abuse Z72.0 and Screening for diabetes mellitus [facility] [address] [facility] [address] [place] [id number] 10/12/2024 R Inderjit Antonio Hiccups R06.6 ; Alcoholic hepatitis without ascites K70.10 and Cirrhosis of liver K74.60 [facility] [address] [facility] [address] [place] [id number] 10/21/2024 R Inderjit Antonio Leg edema R60.0 ; HT N (hypertension) I10 ; Hypophosphatemia E83.39 and Leg pain M79.606 [facility] [address] [facility] [address] [place] [id number] 05/05/2025 R Inderjit Antonio Alcohol abuse F10.10 ; Cirrhosis of liver K74.60 ; HTN (hypertension) I10 ; COPD (chronic obstructive pulmonary disease) J44.[address] [facility] [address] [place] [id number] 05/17/2025 Sarahalbin Crocker Deficiency of other vitamins E56.8 ; Paresthesia R20.2 ; HTN (hypertension) I10 ; Chronic obstructive pulmonary disease, unspecified COPD type J44.9 ; Gastro-esophageal reflux disease without esophagitis K21.9 ; Alcoholic hepatitis without ascites K70.10 ; Cirrhosis of liver K74.60 ; Cough R05 ; Immunization due Z23 and Skin lesions L98.9 [facility] [address] [place] [id number] 05/31/2025 R Inderjit Antonio Pruritic dermatitis L29.9 ; Leg edema R60.0 and Cirrhosis of liver K74.60 [facility] [address] [place] [id number] 05/31/[address] [address] [place] [id number] 07/15/2024 R Inderjit Antonio [facility] [address] [place], [place] [id number] 07/15/2024 R Inderjit Antonio Dorsalgia, unspecifi ed M54.9 ; Other chronic pain G89.29 ; Pain in left leg M79.605 and Pain in right leg M79.604 [facility] [address] [place], [place] [id number] 09/10/2024 R Inderjit Antonio [facility] [address] [place] [id number] 09/14/2024 R Inderjit Antonio [facility] [address] [place] [id number] 10/01/2024 R Inderjit Antonio [facility] [address] [place], [place] [id number] 10/05/2024 R Inderjit Antonio [facility] [address] [place] [id number] 10/07/2024 R Inderjit Antonio [facility] [address] [place] [id number] 10/13/2024 R Inderjit Antonio [facility] [address] [place] [id number] 10/26/2024 R Inderjit Antonio [facility] [address] [place] [id number] 10/27/2024 R Inderjit Antonio [facility] [address] [place] [id number] 11/05/2024 R Inderjit Antonio Leg pain M79.606 [facility] [address] [place] [id number] 11/12/2024 R Inderjit Antonio [facility] [address] [place], [place] [id number] 11/25/2024 R Inderjit Antonio Hiccups R06.6 [facility] [address] [place], [place] [id number] 12/21/2024 Salvador Fitzwilliam Leg pain M79.606 [facility] [address] [place] [id number] 03/08/2025 R Inderjit Antonio Leg pain M79.606 [facility] [address] [place], [place] [id number] 04/29/2025 R Inderjit Antonio [facility] [address] [place], [place] [id number] 05/03/2025 R Inderjit Antonio [facility] [address] [place] [id number] 05/04/2025 R Inderjit Antonio [facility] [address] [place], [place] [id number] 05/16/2025 R Inderjit Antonio Alcohol abuse F10.10 Assessments Encounter Date Diagnosis (ICD Code) Assessment Notes Treatment Notes Treatment Clinical Notes Section Notes 09/09/2024 Fatigue (ICD-10 - R53.83) 09/09/2024 Jaundice (ICD-10 - R17) 10/12/2024 Alcoholic hepatitis without ascites (ICD-10 - K70.10) 10/12/2024 Hiccups (ICD-10 - R06.6) 11/05/2024 Leg pain (ICD-10 - M79.606) 11/25/2024 Hiccups (ICD-10 - R06.6) 03/08/2025 Leg pain (ICD-10 - M79.606) 05/05/2025 Alcohol abuse (ICD-10 - F10.10) [facility] 05/05/2025 Cirrhosis of liver (ICD-10 - K74.60) Keep follow-up with Dr. Fountain 05/16/2025 Alcohol abuse (ICD-10 - F10.10) 05/31/2025 Leg edema (ICD-10 - R60.0) 05/31/2025 Pruritic dermatitis (ICD-10 - L29.9) - - Likely from hyperbilirubinemia 10/21/2024 HTN (hypertension) (ICD-10 - I10) 10/21/2024 Leg edema (ICD-10 - R60.0) 07/15/2024 Dorsalgia, unspecified (ICD-10 - M54.9) 05/17/2025 Paresthesia (ICD-10 - R20.2) 05/17/2025 Deficiency of other vitamins (ICD-10 - E56.8) 12/21/2024 Leg pain (ICD-10 - M79.606) 05/17/2025 HTN (hypertension) (ICD-10 - I10) 07/15/2024 Other chronic pain (ICD-10 - G89.29) 10/21/2024 Hypophosphatemia (ICD-10 - E83.39) 05/31/2025 Cirrhosis of liver (ICD-10 - K74.60) 05/05/2025 HTN (hypertension) (ICD-10 - I10) 10/12/2024 Cirrhosis of liver (ICD-10 - K74.60) Keep follow-up with Hepatology clinic at 09/09/2024 Cirrhosis of liver (ICD-10 - K74.60) Keep appointment with GI next week for colonoscopy 09/09/2024 COPD (chronic obstructive pulmonary disease) (ICD-10 - J44.9) He needs a pulmonology consultation and has already been referred to Dr. Motta by cardiology. He is provided a month supply of Trelegy samples to resume pending pulmonology consultation. 05/05/2025 COPD (chronic obstructive pulmonary disease) (ICD-10 - J44.9) 07/15/2024 Pain in left leg (ICD-10 - M79.605) 10/21/2024 Leg pain (ICD-10 - M79.606) 05/17/2025 Chronic obstructive pulmonary disease, unspecified COPD type (ICD-10 - J44.9) breztri samples give for cough; he has been using his albuterol up to 6 times daily 05/17/2025 Gastro-esophageal reflux disease without esophagitis (ICD-10 - K21.9) discussed his diet 07/15/2024 Pain in right leg (ICD-10 - M79.604) 05/05/2025 Gallstones (ICD-10 - K80.20) 09/09/2024 Alcohol abuse (ICD-10 - F10.10) 09/09/2024 Alcoholic hepatitis without ascites (ICD-10 - K70.10) 05/17/2025 Alcoholic hepatitis without ascites (ICD-10 - K70.10) he has had no alcohol in 6 weeks 05/17/2025 Cirrhosis of liver (ICD-10 - K74.60) has FU with GI in 7-8 weeks with FU labs; also she will plan for the colonoscopy 09/09/2024 Peripheral neuropathy (ICD-10 - G62.9) 09/09/2024 Screening for prostate cancer (ICD-10 - Z12.5) 05/17/2025 Cough (ICD-10 - R05) 05/17/2025 Immunization due (ICD-10 - Z23) 09/09/2024 HTN (hypertension) (ICD-10 - I10) 09/09/2024 Tobacco abuse (ICD-10 - Z72.0) 05/17/2025 Skin lesions (ICD-10 - L98.9) 09/09/2024 Screening for diabetes mellitus (ICD-10 - Z13.1) 05/17/2025 Other Declines the Flu and shingle immunizations for now; labs will be repeated with next GI appt; also lab results from 05/13/2025 [facility] ER visit Plan Of Treatment Pending Test Test Name Order Date CT SCAN : CHEST, LUNG CANCER SCREENING L OW DOSE 09/09/2024 H-Urea Breath Test 01/03/2022 H-CMP 01/03/2022 Insurance Providers Payer Name Payer Address Payer Phone Subscriber Number Group Number Insured Name Patient Relationship to Insured Coverage Start Date Coverage End Date [facility] [address] [place] [address] [phone] [id number] ANA LILIA LIU Self - patient [...] Surgery Date(Month/Year) none Hospitalization History Reason Date(Month/Year) [facility] alcoholic withdrawal; ci rrhosis ; hypokalemia; hypomag; Jaundice,COPD;GERD; CAD; ASCVD 04/30-05/02 [facility] - Abdominal Pain (Hepatic Cirr hosis) 06/17/2023
--- OUTSIDE RECORDS SUMMARY | 2025-06-07 07:41 | XMS_ITS | Clinical Summary ---
Author Organization [facility] Address [address] [place] [address] Care Team Providers Care Cistern Room Working Supervisor Name Role Phone Salvador Alvarez MD Primary Care Provider [phone] Allergies Active Allergy Reactions Criticality Noted Date [...] mg) by mouth daily. 5 Active Tiotropium [place] Monohydrate (Spiriva Respimat) 2.5 MCG/ACT inhaler Inhale 2 puffs daily. 4 g 1 5 Active rOPINIRole (Requip) 0.5 MG tabletIndication s:Restless Leg Syndrome Take 1 tablet (0.5 mg) by mouth nightly. 30 tablet 5 Active Active Problems Problem Noted Date Diagnosed Date Decompensated hepatic cirrhosis 09/24/2024 Alcoholic hepatitis 12/05/2023 Rhabdomyolysis 12/05/2023 Alcoholism 12/05/2023 Simple chronic bronchitis 12/05/2023 Coronary artery disease invo lving [place] coronary artery of [place] heart without angina pectoris 12/05/2023 Resolved Problems [...] place to sleep or slept in a assisted (including now)? No 11/28/2023 Housing Stability Vital Sign Answer Richard e Recorded In the last 12 months, was t here a time when you were not able to pay the mortgage or rent on time? No 09/27/2024 Number of Times Moved in the Last Year Not on fi le 09/27/2024 At any time in the past 12 m [facility], were you homeless or living in a assisted (including now)? No 09/27/2024 CAGE ASSESSMENT Answer [...] drink first t carolyn in the morning (E[employer]GER) to steady your nerves or to get [...] Screenings 03/27/2025 [facility]-Adult SDOH Screenings 03/27/2025 09/27/2024 [id number] Vaccine (2 - 2024- season) 2025 12/16/2020 [...] Antigen Negative Negative 09/25/2024 8:39 PM EST [facility] Hepatitis C Antibody Negative Negative 09/25/2024 8:39 PM EST [facility] Hepatitis A Antibody IgM Negative Negative 09/25/2024 8:39 PM EST [facility] Hepatitis B Core Antibody IgM Negative Negative 09/25/2024 8:39 PM EST [facility] Blood Venous blood specimen / Unknown Venipuncture / Unknown 09/25/2024 4:59 PM EST 09/25/2024 5:04 PM EST us Wendy Welch MD LAB BLOOD ORDERABLES Final Re sult [facility] [address] [place] [address] * ED HIV 1/2 Antibody/Antigen Screen w/Reflex to HIV 1/2 Differentiation (11/27/2023 3:43 PM EDT) HIV 1 & 2 Antibody/Antigen Screen Non Reactive Non Reactive 11/27/2023 4:26 PM EDT [facility] Comment:Screening for HIV 1 & 2 antibodies, and P24 antigen is NONREACTIVE. No confirmatory testing is required. Blood Venous blood specimen / Unknown Venipuncture / Unknown 11/27/2023 3:43 PM EDT 11/27/2023 3:53 PM EDT [facility] [employer] LAB BLOOD ORDERABLES Final Result [facility] [address] [place] [address] from Last 3 Months or Most Recently [...] Patient has decision-making capacity? Yes Care Teams Cistern Room Working Supervisor Relationship Specialty Start Date End Date Salvador Alvarez MD [address] [place] [id number] PCP - General 12/15/20
--- OUTSIDE RECORDS SUMMARY | 2025-06-07 07:41 | XMS_ITS | Patient Health Record ---
Author Organization [facility] Address [address] [facility] [address] [place] [phone] Care Team Providers Care Sugar Boiler Name Role Phone Tobin Alvarez Unavailable [phone] Reason For Referral No Information Medications Medication SIG (Take, Route, Fr equency, Duration) Notes Start Date End Date Status Loratadine 10 MG 1 tab(s) orally once a day; Duration: 90 Active Plavix 75 MG 1 tab(s) orally once a day; Duration: 30 day(s) Active Encounters Encounter Location Date Provider Diagnosis [facility] [facility] [address] [place] [phone] 11/05/2024 Tobin Alvarez Plan Of Treatment No Information
[2025-06-07 08:33] LABS: Hematocrit 36.9 % (42.0-52.0); Hemoglobin 12.3 g/dL (14.1-18.0); Mean Corpuscular HGB Conc 33.3 g/dL (31.8-35.4); Mean Corpuscular Hemoglobin 32.7 pg (27.0-31.2); Mean Corpuscular Volume 98.1 fl (80-94); Nucleated Red Blood Cells % 0 %; Platelet Count 355 K/mm3 (142-424); Red Blood Count 3.76 M/mm3 (4.60-6.20); Red Cell Distribution Width-SD 49.1 fL; White Blood Count 12.4 K/mm3 (4.8-10.8)
[2025-06-07 08:57] LABS: Albumin Level 3.9 g/dl (3.5-5.0); Chloride 100 mmol/L (98-107); Potassium 3.7 mmoL/L (3.5-5.1); Sodium 134 mmol/L (136-145)
[2025-06-07 09:00] LABS: Alanine Aminotransferase 68 U/L (12-78); Albumin/Globulin Ratio 1.4 (1.1-1.8); Alkaline Phosphatase 389 U/L (38-126); Anion Gap 13.7 mEq/L (5-15); Aspartate Amino Transferase 155 U/L (17-59); Bilirubin,Total 9.3 mg/dl (0.2-1.3); Blood Urea Nitrogen 7 mg/dl (9-20); Carbon Dioxide 24 mmol/L (22.0-30.0); Creatinine,Serum 1.10 mg/dl (0.66-1.25); Estimated Glomerular Filt Rate 68 ml/min (>60); GFR (African American) 83 ML/MIN (>60); Globulin 2.8 g/dL (1.3-3.2); Total Protein,Serum 6.7 g/dl (6.3-8.2)
[2025-06-07 09:01] LABS: Calcium 8.3 mg/dl (8.4-10.2); Glucose 119 mg/dl (74-100)
== END 2025-06-07 23:59 | disposition home or self-care (01) ==
LOC: LAB 07:37
PROVIDERS: PCP Family Medicine; Visit Provider Obstetrics & Gynecology
DX: F10.10 Alcohol abuse, uncomplicated (principal)
CPT/HCPCS: 36415; 80053; 80074; 85027; 87389; 87522